=== PATIENT | male | born 1945 | race Caucasian/White ===

== ENCOUNTER → 2016-11-16 | Outpatient (CLI) | payer MEDICARE, OTHER ==
[~2016-11-16] MED LIST: AVAP300T23 PO; AZIT250T3 PO; CALC-190 PO; COMBAER6 INH; COMBIVENT; FEXO180T58 PO; FISH5CAP PO; FLUT1LOT EX; FLUTISP; LEVA1.256 INH; LIPI10TA PO; LYRI75CA PO; MAGN1TAB25 PO; MUCI600T34 PO; PRED5TA PO; PULM0.5S INH; SYMB16INH INH; [UNRECOGNIZED DRUG - CODE]; [UNRECOGNIZED DRUG - OTHER]
[2016-11-16 19:07] LABS: BLOOD UREA NITROGEN 31 MG/DL (7-18); CREATININE FOR GFR 0.96 MG/DL (0.70-1.30); GLOMERULAR FILTRATION RATE > 60.0 (>42)
== END ==
LOC: M WUC 14:07
PROVIDERS: ATTEND Orthopaedic Surgery Orthopaedic Surgery of the Spine
DX: M54.5 Low back pain (principal)

== ENCOUNTER → 2017-06-07 | Outpatient (CLI) | payer MEDICARE, OTHER ==
[~2017-06-07] MED LIST changes: +AZIT-12 PO; -AZIT250T3 PO; -MUCI600T34 PO; +MUCI600T37 PO
--- NOTE | 2017-06-07 12:24 | REP ---
REASON: Pain after trauma. PRIORS: None. Degenerative change is seen throughout the hand. There is no acute fracture. Signed by Giovany Ojeda DO 06/07/2017 12:27 P
--- NOTE | 2017-06-07 12:28 | REP ---
REASON: Pain after trauma. PRIORS: None. FINDINGS: No acute fracture or destructive osseous lesion. Signed by Giovany Ojeda DO 06/07/2017 04:40 P
== END ==
LOC: M WUC 11:42
PROVIDERS: ATTEND Physician Assistant
DX: S60.222A Contusion of left hand, initial encounter (principal); S60.212A Contusion of left wrist, initial encounter; X58.XXXA Exposure to other specified factors, initial encounter; Y92.9 Unspecified place or not applicable

== ENCOUNTER → 2017-09-25 | Outpatient (CLI) | payer MEDICARE, OTHER | LOC: M WUC 10:40 | PROVIDERS: ATTEND Urology | DX: Z85.46 Personal history of malignant neoplasm of prostate (principal) ==

== ENCOUNTER → 2018-06-18 | Outpatient (CLI) | payer MEDICARE, OTHER ==
[2018-06-18 17:19] LABS: BLOOD UREA NITROGEN 25 MG/DL (7-18)
[2018-06-18 17:19] LABS: CREATININE FOR GFR 0.87 MG/DL (0.70-1.30); GLOMERULAR FILTRATION RATE > 60.0 (>42)
== END ==
LOC: M WUC 13:33
DX: M54.5 Low back pain (principal)
CPT/HCPCS: 82565

== ENCOUNTER → 2019-01-27 | Outpatient (CLI) | payer MEDICARE, OTHER ==
[~2019-01-27] MED LIST changes: +LEVA1.2525 INH; -LEVA1.256 INH
--- NOTE | 2019-01-27 11:24 | REP ---
Chest two views HISTORY: Pulmonary disease Comparison: 01/27/2017 The lungs are hyperinflated. An increase in interstitial markings is present in the lungs consistent with chronic interstitial fibrosis The heart is normal in size. The pulmonary vasculature is normal in appearance. The bony structure is intact. The patient is status post right shoulder arthroplasty. IMPRESSION: Chronic interstitial fibrosis. Electronically Signed by Edin Andrade MD 01/27/2019 11:14 A
== END ==
LOC: M WUC 10:45
PROVIDERS: ATTEND Internal Medicine Pulmonary Disease
DX: J44.9 Chronic obstructive pulmonary disease, unspecified (principal); J84.10 Pulmonary fibrosis, unspecified

== ENCOUNTER → 2019-03-05 | Outpatient (REF) | payer MEDICARE, OTHER ==
[~2019-03-05] MED LIST changes: +FLUT50SP12; -FLUTISP; -MAGN1TAB25 PO; +MAGN1TAB26 PO
== END ==
LOC: M LAB REF 11:32
PROVIDERS: ATTEND Internal Medicine Pulmonary Disease
DX: J44.9 Chronic obstructive pulmonary disease, unspecified (principal)

== ENCOUNTER → 2019-03-05 | Outpatient (CLI) | payer MEDICARE, OTHER ==
--- NOTE | 2019-03-05 11:05 | REP ---
Chest x-ray: Two views. History: Shortness of breath. Comparison study: January 27, 2019. Findings: The patient has a right shoulder arthroplasty. The lungs are well inflated and clear. The pleural angles are sharp. Heart size is normal. The aorta slightly tortuous. Emphysematous changes and oligemia are again noted in the upper lobes consistent with COPD. No bony abnormality is seen. Impression: Evidence of COPD as before. No acute cardiopulmonary disease seen. Electronically Signed by Joel Sun MD 03/05/2019 10:56 A
== END ==
LOC: M RAD 10:16
PROVIDERS: ATTEND Internal Medicine Pulmonary Disease
DX: J44.9 Chronic obstructive pulmonary disease, unspecified (principal)

== ENCOUNTER → 2019-07-09 | Outpatient (CLI) | payer MEDICARE, OTHER ==
[2019-07-09 18:10] LABS: APPEARANCE, URINE HAZY (CLEAR); BACTERIA, URINE AUTO 1+ (NEGATIVE); BILIRUBIN, URINE AUTO NEGATIVE (NEGATIVE); BLOOD, URINE BLOOD 1+ (NEGATIVE); COLOR, URINE YELLOW (YELLOW); GLUCOSE, URINE (UA) AUTO NEGATIVE (NEGATIVE); KETONE, URINE AUTO NEGATIVE (NEGATIVE); LEUKOCYTE ESTERASE, URINE AUTO 2+ (NEGATIVE); MUCUS, URINE SMALL (NEGATIVE); NITRITE, URINE AUTO NEGATIVE (NEGATIVE); PROTEIN, URINE AUTO NEGATIVE (NEGATIVE); RBC, URINE AUTO 17 /HPF (0-3); SPECIFIC GRAVITY URINE AUTO 1.018 (1.002-1.035); SQUAMOUS EPITHELIAL CELL UR AU 0 /HPF (0-6); UROBILINOGEN, URINE AUTO 0.2 mg/dL (0.0-2.0); WBC, URINE AUTO 47 /HPF (0-3)
== END ==
LOC: M SMT 13:30
PROVIDERS: ATTEND Surgery
DX: R39.9 Unspecified symptoms and signs involving the genitourinary system (principal)

== ENCOUNTER → 2020-04-12 | Outpatient (REF) | payer MEDICARE, OTHER | LOC: M LAB REF 12:12 | PROVIDERS: ATTEND Internal Medicine | DX: Z01.89 Encounter for other specified special examinations (principal) ==

== ENCOUNTER → 2020-05-26 | Outpatient (CLI) | payer MEDICARE, OTHER ==
--- NOTE | 2020-05-26 16:10 | REP ---
REASON FOR EXAM: History of COPD. COMPARISON: Multiple, the latest 03/05/2019. Cardiomediastinal silhouette and lung morales are unchanged. There is basilar fibrotic change status quo. The heart is not enlarged. There is no change in the osseous structures. IMPRESSION: No evidence of acute cardiopulmonary disease or significant change from the prior exam. Chronic changes as described above. Electronically Signed by Giovany Ojeda DO 05/26/2020 05:03 P
== END ==
LOC: M WUC 13:10
PROVIDERS: ATTEND Internal Medicine Pulmonary Disease
DX: J44.9 Chronic obstructive pulmonary disease, unspecified (principal)

== ENCOUNTER → 2020-06-23 | Outpatient (REF) | payer MEDICARE, OTHER ==
[2020-08-10 21:41] LABS: APPEARANCE, URINE MANUAL HAZY (CLEAR); COLOR, URINE MANUAL YELLOW (YELLOW)
[2020-08-10 21:42] LABS: BILIRUBIN, URINE MANUAL NEGATIVE (NEGATIVE); BLOOD URINE MANUAL NEGATIVE (NEGATIVE); GLUCOSE, URINE (UA) MANUAL NEGATIVE (NEGATIVE); KETONE, URINE MANUAL NEGATIVE (NEGATIVE); LEUKOCYTE ESTERASE, URINE MAN NEGATIVE (NEGATIVE); NITRITE, URINE MANUAL NEGATIVE (NEGATIVE); PROTEIN, URINE MANUAL NEGATIVE (NEGATIVE); SPECIFIC GRAVITY,URINE MANUAL 1.015 (1.002-1.035); UROBILINOGEN, URINE MANUAL NORMAL (NORMAL)
== END ==
LOC: M LAB REF 10:25
PROVIDERS: ATTEND Physician Assistant Medical
DX: R35.0 Frequency of micturition (principal)

== ENCOUNTER → 2020-07-13 | Outpatient (CLI) | payer MEDICARE, OTHER ==
--- NOTE | 2020-08-07 10:49 | REP ---
CHEST X-RAY CLINICAL: COPD and shortness of breath. TECHNIQUE: PA and lateral. COMPARISON: 05/26/2020. FINDINGS: Mediastinum and cardiac silhouette are within normal limits and stable. Lung morales demonstrate chronic COPD/emphysematous disease and interstitial changes. No acute consolidation, effusion, or pneumothorax. Skeletal structures are intact. IMPRESSION: Chronic stable changes. No acute cardiopulmonary process appreciated. MTDD
== END ==
LOC: M WUC 13:05
PROVIDERS: ATTEND Nurse Practitioner Family
DX: J44.9 Chronic obstructive pulmonary disease, unspecified (principal); R06.00 Dyspnea, unspecified

== ENCOUNTER → 2020-09-01 | Outpatient (REF) | payer MEDICARE, OTHER | LOC: M LAB REF 16:28 | PROVIDERS: ATTEND Internal Medicine Pulmonary Disease | DX: J44.9 Chronic obstructive pulmonary disease, unspecified (principal) ==

== ENCOUNTER → 2020-12-25 | Outpatient (REF) | payer MEDICARE, OTHER ==
[2020-12-25 17:43] LABS: PERCENT SATURATION 11.4 % (19.7-50.0)
== END ==
LOC: M LAB REF 16:00
PROVIDERS: ATTEND Internal Medicine
DX: D64.9 Anemia, unspecified (principal)

== ENCOUNTER → 2021-01-12 | Outpatient (REF) | payer MEDICARE, OTHER ==
[2021-01-12 17:38] LABS: PERCENT SATURATION 28.9 % (19.7-50.0)
== END ==
LOC: M LAB REF 16:01
PROVIDERS: ATTEND Internal Medicine
DX: D64.9 Anemia, unspecified (principal)

== ENCOUNTER → 2021-03-09 | Outpatient (CLI) | payer MEDICARE, OTHER ==
--- NOTE | 2021-03-09 12:23 | REP ---
INDICATION: COPD. COMPARISON: Comparison chest x-ray 13 July 2020. TECHNIQUE: Three views... FINDINGS: The lungs are again seen to be hyperinflated but free of infiltrate. Interstitial markings are slightly prominent in the bases unchanged. Pleural angles are sharp. A right shoulder arthroplasty is noted in place. There is soft tissue ossific density beneath the coronoid process on the left shoulder which may reflect loose body. This is unchanged. Heart is not enlarged. Aorta is somewhat tortuous. IMPRESSION: Hyperinflation and bibasilar fibrosis consistent with COPD. No acute disease.. <Electronically signed by Raymond Sun > 03/09/21 [id number]
== END ==
LOC: M WUC 10:56
PROVIDERS: ATTEND Internal Medicine Pulmonary Disease
DX: J44.9 Chronic obstructive pulmonary disease, unspecified (principal)

== ENCOUNTER → 2021-03-13 | Outpatient (CLI) | payer MEDICARE, OTHER ==
[2021-03-13 20:08] LABS: HEMATOCRIT 42.3 % (42.0-52.0); HEMOGLOBIN 12.6 g/dl (13.5-17.5); MEAN CORPUSCULAR HGB CONC 29.8 g/dl (32.0-36.5); MEAN CORPUSCULAR VOLUME 77.3 fl (80.0-96.0); PLATELET COUNT, AUTOMATED 249 10^3/uL (150-450); RED BLOOD COUNT 5.47 10^6/uL (4.30-6.10); WHITE BLOOD COUNT 13.3 10^3/uL (4.0-10.0)
[2021-03-13 20:13] LABS: BLOOD UREA NITROGEN 26 MG/DL (7-18); CALCIUM LEVEL 9.2 MG/DL (8.8-10.2); CARBON DIOXIDE LEVEL 29 MEQ/L (21-32); CHLORIDE LEVEL 108 MEQ/L (98-107); CREATININE FOR GFR 0.62 MG/DL (0.70-1.30); GLOMERULAR FILTRATION RATE > 60.0 (>42); GLUCOSE, FASTING 96 MG/DL (70-100); POTASSIUM SERUM 4.7 MEQ/L (3.5-5.1); SODIUM LEVEL 141 MEQ/L (136-145)
[2021-03-13 20:14] LABS: ALBUMIN 3.5 GM/DL (3.2-5.2); ALT/SGPT 37 U/L (12-78); BILIRUBIN,TOTAL 0.4 MG/DL (0.2-1.0); IRON (FE) 54 UG/DL (65-175); PERCENT SATURATION 18.9 % (19.7-50.0); TOTAL IRON BINDING CAPACITY 285 UG/DL (250-450); TOTAL PROTEIN 6.7 GM/DL (6.4-8.2)
== END ==
LOC: M WUC 15:16
PROVIDERS: ATTEND Physician Assistant Medical
DX: D50.9 Iron deficiency anemia, unspecified (principal)

== ENCOUNTER → 2021-03-28 | Outpatient (CLI) | payer MEDICARE, OTHER ==
[~2021-03-28] MED LIST changes: +GLUCAGON INJ 1MG VIAL As Ordered ONE; +ISOVUE-370 76% 100ML VIAL As Ordered ONE; +VoLumen 0.1% SUSPENSION 450ML BOTTLE As Ordered ONE
--- NOTE | 2021-03-28 16:24 | REP ---
INDICATION: IRON DEFICIENCY, POSITIVE FIT TEST. COMPARISON: None TECHNIQUE: Helical technique after the administration of 100 cc Isovue 370 intravenously and oral bowel preparatory contrast administration FINDINGS: Dense verrucoid opacities are seen in the lung bases in conjunction with saccular bronchiectasis and scattered air bronchograms. There are multiple pulmonary nodules which appear essentially unchanged compared to the CT of the chest of 06/26/2015. There are no pleural or pericardial effusions. There is no evidence of abnormal bowel wall thickening or edema. There is no evidence of mesenteric congestion or fatty infiltration. There is no free fluid or free air. The liver, gallbladder, spleen, pancreas, and adrenal glands are within normal limits. There are bilateral renal cysts. There are no enhancing renal masses. There are small para-aortic lymph nodes without sherron adenopathy. The abdominal aorta is within normal limits for the patient's age. There is rather heavy calcific atheromatous plaque formation. Bone window technique throughout the examination shows the osseous structures to be within normal limits for the patient's age. IMPRESSION: 1. Bronchiectasis with heavy mucoid debris suspected as described above representing a change from the prior CT of 06/26/2015 which is the latest prior for comparison. Pulmonary consultation is recommended 2. Simple bilateral renal cysts. 3. No evidence of a bowel abnormality. 4. Other findings as described above. <Electronically signed by Giovany Ojeda > 03/28/21 [id number]
== END ==
LOC: M RAD 12:34
PROVIDERS: ATTEND Physician Assistant Medical
DX: D50.9 Iron deficiency anemia, unspecified (principal); R19.5 Other fecal abnormalities; Z80.0 Family history of malignant neoplasm of digestive organs; N28.1 Cyst of kidney, acquired; J47.9 Bronchiectasis, uncomplicated
CPT/HCPCS: 74177; J1610; Q9967

== ENCOUNTER → 2021-04-05 | Outpatient (CLI) | payer MEDICARE, OTHER ==
[~2021-04-05] MED LIST changes: +FERR325T81 PO; -GLUCAGON INJ 1MG VIAL As Ordered ONE; +INCR1INH INH; -ISOVUE-370 76% 100ML VIAL As Ordered ONE; +MUCI1TAB16 PO; +NORV5TAB PO; +NYST50SS SS; +OXYC1TAB23 PO; +PRESCAP PO; +VESI10TA2 PO; -VoLumen 0.1% SUSPENSION 450ML BOTTLE As Ordered ONE; +ZINC1TAB2 PO
== END ==
LOC: M LABSMTC 11:08
PROVIDERS: ATTEND Anesthesiology
DX: Z01.818 Encounter for other preprocedural examination (principal); Z20.822 Contact with and (suspected) exposure to COVID-19

== ENCOUNTER 2021-04-28 13:06 | Inpatient (IN) | payer MEDICARE, OTHER ==
[~2021-04-28] VITALS: Ht 182.9 cm; Wt 71.7 kg
[2021-04-28] MEDS ORDERED: dexameTHASONE 20MG/5ML VIAL (J1100 PER 1MG) IV ONE (13:40)
[2021-04-28] MEDS ORDERED: COMBIVENT RESPIMAT 100-20MCG INHALER 4GM INH ONE (13:40)
[2021-04-28 14:02] LABS: VENOUS HCO3 21.7 MEQ/L (23.0-27.0); VENOUS O2 SATURATION 92.9 % (60.0-80.0); VENOUS PARTIAL PRESSURE CO2 33.9 mmHg (38.0-50.0); VENOUS PARTIAL PRESSURE O2 65.4 mmHg (30.0-50.0); VENOUS PH 7.424 UNITS (7.330-7.430); VENOUS STANDARD HCO3 22.7 MEQ/L; VENOUS TOTAL CO2 22.7 MEQ/L (24.0-28.0)
[2021-04-28 14:08] LABS: HEMATOCRIT 35.9 % (42.0-52.0); HEMOGLOBIN 11.6 g/dl (13.5-17.5); MEAN CORPUSCULAR HEMOGLOBIN 23.8 pg (27.0-33.0); MEAN CORPUSCULAR HGB CONC 32.3 g/dl (32.0-36.5); MEAN CORPUSCULAR VOLUME 73.7 fl (80.0-96.0); PLATELET COUNT, AUTOMATED 323 10^3/uL (150-450); RED BLOOD COUNT 4.87 10^6/uL (4.30-6.10); WHITE BLOOD COUNT 21.6 10^3/uL (4.0-10.0)
--- NOTE | 2021-04-28 14:27 | REP ---
INDICATION: DYSPNEA/COUGH. COMPARISON: 03/09/2021 TECHNIQUE: Portable FINDINGS: The technique utilized in obtaining the radiograph has magnified the cardiac silhouette and accentuated the interstitial markings. There is cardiomegaly accentuated by technique. There is new left CP angle blunting. The interstitial markings are diffusely increased. There are bibasilar opacities representing a change from the prior exam. There is a rounded opacity in the right lower lung field which measures 3 cm. There is no change in the osseous structures. IMPRESSION: There is evidence of interstitial edema with basilar predominance superimposed upon chronic fibrotic changes. Certainly, basilar pneumonia cannot be excluded. There is a left pleural effusion. The density seen on the right possibly represents intra fissural fluid. <Electronically signed by Giovany Ojeda > 04/28/21 [id number]
[2021-04-28 14:28] LABS: ANISOCYTOSIS 1+; EOSINOPHILS 2 % (0-3); LYMPHOCYTES 1 % (16-44); MONOCYTES 5 % (0-5); NEUTROPHILS 62 % (28-66); PLATELET ESTIMATE NORMAL (NORMAL)
[2021-04-28 14:29] LABS: MICROCYTOSIS 2+
[2021-04-28 14:40] LABS: ALBUMIN 2.2 GM/DL (3.2-5.2); ALT/SGPT 56 U/L (12-78); BILIRUBIN,DIRECT 0.2 MG/DL (0.0-0.2); BILIRUBIN,TOTAL 0.5 MG/DL (0.2-1.0); BLOOD UREA NITROGEN 28 MG/DL (7-18); CALCIUM LEVEL 8.3 MG/DL (8.8-10.2); CARBON DIOXIDE LEVEL 22 MEQ/L (21-32); CHLORIDE LEVEL 99 MEQ/L (98-107); CK-MB VALUE MASS 3.2 NG/ML (<3.6); CPK CREATINE PHOSPHOKINASE 143 U/L (39-308); CREATININE FOR GFR 1.13 MG/DL (0.70-1.30); GLOMERULAR FILTRATION RATE > 60.0 (>42); GLUCOSE, FASTING 125 MG/DL (70-100); MB/CK RELATIVE INDEX 2.24 (< OR =4); NT-PRO BNP 2940 PG/ML (<450); POTASSIUM SERUM 4.9 MEQ/L (3.5-5.1); SODIUM LEVEL 130 MEQ/L (136-145); THYROXINE (T4) 6.4 UG/DL (4.5-12.0); TOTAL PROTEIN 6.2 GM/DL (6.4-8.2); TROPONIN I 0.07 NG/ML (< 0.10)
[2021-04-28] MEDS ORDERED: cefTRIAXone SOD 2 GM in D5W MINI-BAG PLUS 50 ML IV ONE (16:00)
[2021-04-28] MEDS ORDERED: areds (16:02)
[2021-04-28] MEDS ORDERED: IPRATROPIUM 0.5MG/ALBUTEROL 2.5MG INH SOL UD 3ML (DUONEB) INH PRN (16:45)
[2021-04-28] MEDS ORDERED: MOM 30ML SUSPENSION UDC PO PRN (16:45)
[2021-04-28] MEDS ORDERED: MAALOX 30 ML SUSP *UDC PO PRN (16:45)
--- NOTE | 2021-04-28 16:48 | REP ---
INDICATION: possible pneumonia/ chf COMPARISON: 05/27/2015 the latest prior also without contrast TECHNIQUE: Standard helical technique without intravenous contrast administration FINDINGS: There is no significant change in the appearance of the mediastinum or pulmonary bishnu. There is no evidence of a mass or adenopathy. Borderline subcarinal lymph nodes, however, are present. There is a small left pleural effusion and a small amount of fluid seen in the right major fissure. There is an oval-shaped masslike density in the superior segment of the right lower lobe abutting the major fissure. There is a similar finding in the left lower lobe, however, that is contiguous with a loculated effusion. There is a left upper posterior and posterolateral loculated effusion. There is a slight pericardial effusion. This has all developed since the last exam. The imaged upper abdomen is unchanged. There is no significant change in the appearance of the imaged osseous structures. Evaluation of the lung morales shows a new area of consolidation/mass in the apicoposterior segment of the left upper lobe. There is a wedge-shaped opacity in the right middle lobe. There is a rhomboid shaped opacity in the apicoposterior segment of the left upper lobe which is causing bronchial occlusion. Advanced chronic lung changes are seen throughout the lung morales with evidence of bronchiectasis and bronchial are opacification in the lower lobe bilaterally. IMPRESSION: 1. Loculated left pleural effusion as described above. 2. Masslike areas of consolidation seen in the left upper and middle lobes. Postobstructive pneumonia with or without malignancy cannot be ruled out. 3. There are chronic lung field changes with bronchiectasis, bronchial are opacification likely mucoid debris, and fibrotic changes as described above. Certainly, lymphangitic neoplasm cannot be ruled out. 4. Other findings as described above. <Electronically signed by Giovany Ojeda > 04/28/21 [id number]
--- NOTE | 2021-04-28 17:11 | HPEPDOC ---
[facility] Medical History & Physical Date of Admission Apr 28, 2021 Date of Service: Apr 28, 2021 History and Physical CHIEF COMPLAINT: Shortness of breath HISTORY OF PRESENT ILLNESS: 75-year-old male history of advanced COPD presents to the emergency department by EMS with his because of a one-week history of shortness of breath worse than baseline at home. Patient notes they've been noticing increased sputum production green in color over the past 1 week which coincided with when he started having shortness of breath. He denies fevers or chills. Denies requiring any increased oxygen requirement above his 2 L baseline. He just feels more tired and weak than usual. Exertion worsens his shortness of breath. He hasn't needed to sleep on more pillows at night. He denies increased swelling in his legs he denies a history of cardiac disease denies having congestive heart failure. In the emergency department chest x-ray suggestive of possible pneumonia he was given 1 dose of ceftriaxone. Blood cultures were ordered. Pro-calcitonin is pending. He was given 1 dose of Decadron and nebulizer treatment. CT chest was ordered. PAST MEDICAL/SURGICAL HISTORY: COPD dependent on 2 L of oxygen at home follows with [employer] Dr. Thacker Hypertension currently not on antihypertensive medications Hyperlipidemia Obstructive sleep apnea on CPAP at home Right shoulder replacement Prostate cancer status post radiation Back surgery SOCIAL HISTORY: Denies alcohol use Denies tobacco use currently quit 25 years ago prior to that smoked for 50 years Denies illicit drug use FAMILY HISTORY: Father had a history of lung disease ALLERGIES: Please see below. REVIEW OF SYSTEMS: 10 point review of systems complete all negative otherwise stated in HPI HOME MEDICATIONS: Please see below. PHYSICAL EXAMINATION: Constitutional: Awake and alert, in no apparent distress ENT: Sclera are clear. Mucosa is moist. Respiratory: Lungs diminished bilaterally, no crackles, no wheezing appreciated. No respiratory distress. No use of accessory muscles. Saturating at 96% on 1.5 L of oxygen which is below his home oxygen requirement Cardiovascular: RRR S1 and S2 are normal, no murmur Gastrointestinal: Abdomen is soft, non distended, non tender, BS present. Musculoskeletal: No lower extremity edema. Neurologic: No focal neurological deficit. Mental Status: A&O x3, normal affect Skin: Some skin irritation at intergluteal cleft erythema LABORATORY DATA: See below. IMAGING: See chart Chest CT pending MICROBIOLOGY: Please see below. ASSESSMENT/PLAN 75-year-old male history of advanced COPD presents with shortness of breath and sputum production for one week suspected to have community-acquired pneumonia admitted for observation. # Suspected community-acquired pneumonia: Given 1 dose of ceftriaxone in the ED. Started on levofloxacin IV which can be transitioned to by mouth at time of discharge. QTC 430. Blood cultures and sputum cultures ordered. 2 nebs as needed. Incentive spirometry. Respiratory Negative. He is afebrile but does have some leukocytosis which could be a combination of chronic steroids as well as the pneumonia. # COPD dependent on oxygen at home: Not in exacerbation good air movement and no wheezing on exam. Requiring near baseline home oxygen requirement. Chronically on azithromycin for anti-inflammatory properties this can be continued. Chronically on steroids which can also be continued. Duonebs as needed. Continue home medications and inhalers. # Increased BNP: Possibly from pulmonary hypertension due to advanced COPD. He is clinically euvolemic. He can obtain an echo with his PCP if one has not been done recently. His chest x-ray does demonstrate some interstitial edema with a left pleural effusion will leave one-time dose of IV Lasix # Hypertension: Normotensive. Monitor and titrate # Hyperlipidemia: Continue home medication # DVT prophylaxis: Lovenox A [facility] Hospitalist Vital Signs Vital Signs Date Time Temp Pulse Resp B/P (MAP) Pulse Ox O2 Delivery O2 Flow Rate FiO2 04/28/21 15:30 84 98/66 (77) 96 Nasal Cannula 2.0 04/28/21 15:20 97.6 04/28/21 14:36 17 Laboratory Data Labs 24H Laboratory Tests 2 04/28/21 13:24: Blood Gas Bicarbonate Standard 22.7, Venous Blood pH 7.424, Venous Blood Partial Pressure CO2 33.9L, Venous Blood Partial Pressure O2 65.4H, Venous Blood Total Carbon Dioxide 22.7L, Venous Blood HCO3 21.7L, Venous Blood Oxygen Saturation 92.9H, Venous Blood Base Excess -2.0, Anion Gap 9, Glomerular Filtration Rate > 60.0, Lactic Acid Level 1.6, Calcium Level 8.3L, Total Bilirubin 0.5, Direct Bilirubin 0.2, Aspartate Amino Transf (AST/SGOT) 33, Alanine Aminotransferase (ALT/SGPT) 56, Alkaline Phosphatase 78, Total Creatine Kinase 143, Creatine Kinase MB 3.2, Creatine Kinase MB Relative Index 2.24, Troponin I 0.07, QI-Cry-Y-Type Natriuretic Peptide 2940H, Total Protein 6.2L, Albumin 2.2L, Albumin/Globulin Ratio 0.6, Thyroid Stimulating Hormone (TSH) 1.020, Thyroxine (T4) 6.4 04/28/21 13:40: Neutrophils (%) (Auto) , Nucleated Red Blood Cells % (auto) 0.0, Neutrophils 62, Band Neutrophils 30H, Lymphocytes (Manual) 1L, Monocytes (Manual) 5, Eosinophils (Manual) 2, Anisocytosis 1+, Microcytosis 2+, Platelet Estimate NORMAL 04/28/21 15:33: CBC/BMP Laboratory Tests 04/28/21 13:24 04/28/21 13:40 Microbiology Microbiology 04/28/21 Blood Culture, Received Pending 04/28/21 Respiratory Virus Panel (PCR) (CORTES) - Final, Complete 04/28/21 Blood Culture, Received Pending Home Medications Scheduled Amlodipine Besylate (Norvasc) 5 Mg Tablet, 5 MG PO DAILY Atorvastatin Calcium (Lipitor) 10 Mg Tab, 10 MG PO QHS Azithromycin (Azithromycin) 250 Mg Tab, 250 MG PO DAILY Budesonide (Pulmicort) 0.5 Mg/2 Ml [place], 0.5 MG INH BID Budesonide/Formoterol (Symbicort 160-4.5 Mcg Inhaler) 60 Puff/Inhaler Aers, 2 PUFF INH BID Ferrous Sulfate (Iron) 325 Mg Tablet, 325 MG PO DAILY Guaifenesin (Mucinex) 1,200 Mg Tab.er.12h, 1,200 MG PO BID Irbesartan (Irbesartan) 150 Mg Tablet, 150 MG PO DAILY Levalbuterol HCl (Levalbuterol HCl) 1.25 Mg/3 Ml Neb, 1.25 MG INH QID Nystatin (Nystatin Oral Susp) 100,000 Unit/1 Ml Oral.susp, 5 ML SS BID Prednisone (Prednisone) 20 Mg Tablet, 20 MG PO Q2D ALTERNATE WITH 10MG TAB Prednisone (Prednisone) 20 Mg Tablet, 10 MG PO Q2D ALTERNATE WITH 20MG TAB Solifenacin Succinate (Vesicare) 10 Mg Tablet, 10 MG PO DAILY Umeclidinium [place] (Incruse Ellipta) 62.5 Mcg Blst.w.dev, 1 PUFF INH DAILY Vit A/Vit C/Vit E/Zinc/Copper (Preservision Areds Softgel) 1 Each Capsule, 2 CAP PO DAILY Zinc (Zinc) 50 Mg Tablet, 50 MG PO DAILY Scheduled PRN Fluticasone Propionate (Fluticasone Propionate) 16 Gm [place].susp, 1 SPRAY NARES BID PRN for NASAL CONGESTION Ipratropium/Albuterol Sulfate (Combivent Respimat 20-100 Mcg) 1 Aer Aer, 1 PUFF INH QIDP PRN for WHEEZING Oxycodone HCl/Acetaminophen (Oxycodone-Acetaminophen 5-325) 1 Each Tablet, 1 TAB PO Q8HP PRN for PAIN Allergies Coded Allergies: No Known Allergies (Unverified , 04/03/21) A-FIB/CHADSVASC A-FIB History Current/History of A-Fib/PAF?: No HARDY MAJOR MD Apr 28, 2021 17:11
[2021-04-28] MEDS ORDERED: PRED20TA PO (17:26)
[2021-04-28] MEDS ORDERED: FLUTISP NARES (17:26)
[2021-04-28] MEDS ORDERED: IRBE150T7 PO (17:26)
[2021-04-28] MEDS ORDERED: LevoFLOXacin IV 750 MG in IV 1 EA IV SCH (18:00)
[2021-04-28] MEDS ORDERED: FUROSEMIDE 100MG/10ML VIAL (J1940) IV ONE (18:00)
[2021-04-28] MEDS: NYSTATIN 100,000 UNITS/GM TOPICAL PWD 15 GM TOP SCH (20:42)
[2021-04-28] MEDS: DOCUSATE SODIUM 100MG CAPSULE PO SCH (20:42)
[2021-04-28] MEDS: ACETAMINOPHEN TAB 650MG DOSE (2X325MG) PO PRN (20:42)
[2021-04-28 22:00] VITALS: BP 106/60
[2021-04-29 06:00] VITALS: BP 133/76
[2021-04-29 06:18] LABS: HEMATOCRIT 34.7 % (42.0-52.0); HEMOGLOBIN 11.2 g/dl (13.5-17.5); MEAN CORPUSCULAR HEMOGLOBIN 23.4 pg (27.0-33.0); MEAN CORPUSCULAR HGB CONC 32.3 g/dl (32.0-36.5); MEAN CORPUSCULAR VOLUME 72.6 fl (80.0-96.0); PLATELET COUNT, AUTOMATED 268 10^3/uL (150-450); RED BLOOD COUNT 4.78 10^6/uL (4.30-6.10); WHITE BLOOD COUNT 19.9 10^3/uL (4.0-10.0)
[2021-04-29 06:46] LABS: BLOOD UREA NITROGEN 28 MG/DL (7-18); CALCIUM LEVEL 9.2 MG/DL (8.8-10.2); CARBON DIOXIDE LEVEL 26 MEQ/L (21-32); CHLORIDE LEVEL 99 MEQ/L (98-107); CREATININE FOR GFR 0.71 MG/DL (0.70-1.30); GLOMERULAR FILTRATION RATE > 60.0 (>42); GLUCOSE, FASTING 111 MG/DL (70-100); SODIUM LEVEL 133 MEQ/L (136-145)
[2021-04-29] MEDS: ENOXAPARIN 40MG/0.4ML SYRINGE (J1650 PER 10MG) SC SCH (08:30)
[2021-04-29] MEDS: DOCUSATE SODIUM 100MG CAPSULE PO SCH ×2 (08:30→21:00)
[2021-04-29] MEDS: NYSTATIN 100,000 UNITS/GM TOPICAL PWD 15 GM TOP SCH ×2 (08:30→21:33)
[2021-04-29] MEDS: guaiFENesin ER 600 MG TAB PO SCH ×2 (10:32→21:33)
[2021-04-29] MEDS: PIPERACILLIN/TAZOBACTAM SOD 4.5 GM in D5W MINI-BAG PLUS 100 ML IV SCH ×3 (10:32→21:33)
[2021-04-29] MEDS: predniSONE 20 MG TAB PO SCH (10:32)
[2021-04-29] MEDS: SODIUM CHLORIDE HYPERTONIC 3% 15ML NEB SOL INH SCH ×3 (11:09→20:27)
[2021-04-29] MEDS: SYMBICORT 160/4.5MCG INHALER 6GM INH SCH ×2 (11:09→20:27)
[2021-04-29] MEDS: LEVALBUTEROL 1.25 MG/0.5 ML CONCENTRATE NEB INH SCH ×3 (11:10→20:27)
[2021-04-29] MEDS: VANCOMYCIN HCL 1,000 MG, VIAL MATE ADAPTER 1 EACH in NS 250 ML IV SCH ×2 (11:58→23:46)
[2021-04-29] MEDS: FERROUS SULFATE 325MG TAB PO SCH (11:59)
[2021-04-29] MEDS ORDERED: VANCOMYCIN HCL 500 MG in D5W MINI-BAG PLUS 100 ML IV ONE (13:00)
[2021-04-29] MEDS: SOLIFENACIN 5 MG TAB PO SCH (13:48)
--- NOTE | 2021-04-29 13:55 | IPNPDOC ---
Text Note Date of Service The patient was seen on 04/29/21. NOTE Subjective: Patient seen and examined this morning at bedside. CT results show more extensive involvement suggesting possibly postobstructive pneumonia which I discussed with the patient. I also discussed with him the nodules/masses which will need further workup. He is aware of a history of lung nodules on CT which he follows up with Dr. Thacker his investigator operator. Patient tells me that he feels about the same as yesterday he still has a productive green sputum still denies any fevers or chills. Shortness of breath feels unchanged from yesterday. No acute overnight events reported to me. Denies any chest pain. Objective: Constitutional: Awake and alert, in no apparent distress ENT: Sclera are clear. Mucosa is moist. Respiratory: Lungs diminished bilaterall. No respiratory distress. No use of accessory muscles. Saturating at 96% on 2L of oxygen which is his home oxygen requirement. Cardiovascular: RRR S1 and S2 are normal, no murmur Gastrointestinal: Abdomen is soft, non distended, non tender, BS present. Musculoskeletal: No lower extremity edema. Neurologic: No focal neurological deficit. Mental Status: A&O x3, normal affect Skin: Some skin irritation at intergluteal cleft erythema, skin color changes and fragility from senior living steroid use Imaging CT chest: IMPRESSION: 1. Loculated left pleural effusion as described above. 2. Masslike areas of consolidation seen in the left upper and middle lobes. Postobstructive pneumonia with or without malignancy cannot be ruled out. 3. There are chronic lung field changes with bronchiectasis, bronchial are opacification likely mucoid debris, and fibrotic changes as described above. Certainly, lymphangitic neoplasm cannot be ruled out Assessment/plan: 75-year-old male history of advanced COPD presents with shortness of breath and sputum production for one week suspected to have community-acquired pneumonia admitted for observation. # Pneumonia, possibly post obstructive: Given 1 dose of ceftriaxone in the ED. Started on levofloxacin IV initially which was escalated to adding vancomycin and Zosyn 04/29. QTC 430. Blood cultures and sputum cultures including fungal ordered. Duonebs as needed. Incentive spirometry. Acapella. Respiratory panel Negative. Afebrile with leukocytosis 21.6->19.9. # multiple chest nodules/masses: CT suggestive of possibility of malignancy as well as lymphangitic neoplasm. I discussed and reviewed the case and CT imaging with investigator operator Dr Napier door person today who kindly agreed to see the patient in consultation. I appreciate her recommendations. Will ask IR for CT guided percutaneous drainage to attempt to biopsy/aspirate the mass/fluid on the left side for pathology/fluid analysis. # COPD dependent on oxygen at home: Not in exacerbation good air movement and no wheezing on exam. Requiring near baseline home oxygen requirement. Chronically on azithromycin for anti-inflammatory properties. Chronically on steroids which can be continued. Duonebs as needed. Continue home medications and inhalers. # Increased BNP: Possibly from pulmonary hypertension due to advanced COPD. He is clinically euvolemic. Ordered echo. His chest x-ray does demonstrate some interstitial edema with a left pleural effusion s/p one-time dose of IV Lasix # Hypertension: Normotensive. Monitor and titrate # Hyperlipidemia: Continue home medication # DVT prophylaxis: Lovenox A [facility] Hospitalist VS,[place], I+O VS, [place], I+O Laboratory Tests 04/28/21 13:24 04/28/21 13:40 04/29/21 06:10 Vital Signs Date Time Temp Pulse Resp B/P (MAP) Pulse Ox O2 Delivery O2 Flow Rate FiO2 04/29/21 06:00 97.7 95 20 133/76 (95) 90 Nasal Cannula 2.0 I&O- Last 24 Hours up to 6 AM 04/29/21 06:00 Intake Total 620 ml Output Total 585 ml Balance 35 ml HARDY MAJOR MD Apr 29, 2021 11:39
[2021-04-29 14:00] VITALS: BP 124/96
--- NOTE | 2021-04-29 14:18 | CR ---
PULMONARY CONSULTATION DATE: 04/29/2021 CHIEF COMPLAINT: Shortness of breath. HISTORY OF PRESENT ILLNESS: Mr. Cheek is a 75-year-old male with a history of advanced chronic obstructive pulmonary disease (COPD) on chronic steroids and azithromycin with chronic hypoxemic respiratory failure, hypertension, hyperlipidemia, obstructive sleep apnea (MARGARETTE) on continuous positive airway pressure (CPAP), who presented initially with complaints of worsening shortness of breath and dyspnea on exertion. Patient had noted symptoms for about a week prior to presentation with increasing fatigue and dyspnea. He has a history of chronic mucus production and cough at baseline and was unclear if he had noted significant increase in mucus production, but did have change in the mucus color. 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 He had not noticed any fever or chills. He did have some increased chest tightness and today he does notice with deep inspiration that he is having some pleuritic discomfort in his chest anteriorly bilaterally. He denied noticing any worsening wheezing. He had not noticed any increasing lower extremity edema or orthopnea. He is on azithromycin 250 mg five days a week chronically, which he has been on for quite some time. He is also on prednisone, alternating doses of 20 mg and 10 mg, as well for quite some time. 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 His previous sputum cultures had grown pseudomonas in the past. Patient was initially started on ceftriaxone in the emergency department (ED) and was also given one dose of Decadron. He was admitted for pneumonia and was continued on antibiotics with Levaquin and with nebulizers as needed. Patient has also received one dose of Lasix, given an elevated BNP on admission. This morning, patient states that his shortness of breath is relatively unchanged. He does continue to have cough, which can occasionally be difficult in expectorating mucus. He denies any fevers or chills currently. No nausea or vomiting. PAST MEDICAL AND SURGICAL HISTORY: 1. Chronic obstructive pulmonary disease (COPD) with chronic hypoxemic respiratory failure on 2 liters nasal cannula oxygen and on chronic steroids. 2. Hypertension. 3. Hyperlipidemia. 4. Obstructive sleep apnea (MARGARETTE) on continuous positive airway pressure (CPAP). 5. Right shoulder replacement. 6. Prostate cancer status post radiation approximately 15 years ago. 7. Back surgery. FAMILY HISTORY: Father: History of lung disease. SOCIAL HISTORY: Patient is a former smoker, had been smoking for 50 years and quit 25 years ago. No alcohol use or illicit drug use. HOME MEDICATIONS: - amlodipine - atorvastatin - azithromycin 250 mg daily, Friday through Friday - budesonide, nebulized - Symbicort - Incruse - guaifenesin twice a day - irbesartan - Nystatin - prednisone 20 mg alternating with 10 mg - VESIcare - zinc - oxycodone/acetaminophen as needed - levalbuterol, nebulized, as needed ALLERGIES: No known drug allergies. PHYSICAL EXAMINATION: VITAL SIGNS: Temperature 97.7, pulse 95, respirations 20, blood pressure 132/76, oxygen saturation 90-96% on 2 liters nasal cannula. INTAKE AND OUTPUT: Intake 420 mL, output documented 110 mL. GENERAL: Patient is an elderly male, is sitting in the bed, appears awake, alert and oriented times three. He is able to speak in complete sentences and is not using any significant accessory muscles for respiration, although he does appear tachypneic with no exertion. HEENT: Normocephalic, atraumatic. Pupils are reactive to light bilaterally. Neck is supple. Trachea is midline. No palpable cervical adenopathy. HEART: Regular rate and rhythm. Normal S1, S2. A few premature ventricular contractions (PVCs). Possible faint systolic murmur, although somewhat distant heart sounds noted. PULMONARY: Diminished breath sounds bilaterally with no significant wheezing or crackles noted. There are occasional rhonchi, which improve with cough. ABDOMEN: Soft, nontender, nondistended. No palpable masses. EXTREMITIES: There is no significant lower extremity edema bilaterally. Patient does have areas of ecchymosis and bruising in his extremities, mostly in his arms. LABORATORY DATA: WBC 19.9, hemoglobin 11.2, platelets 268. Chemistry: Sodium 133, potassium 5.0, chloride 99, bicarbonate 26, BUN 28, creatinine 0.71, glucose 117, lactic acid 1.6, magnesium 2.0, calcium 9.2. BNP 2940. Troponin initially was 0.07. Procalcitonin today was 33.58, repeat was 22.67. Venous blood gas (VBG) on admission was pH 7.424, pCO2 33.9, pO2 65.4. IMAGING DATA: CT chest showed advanced emphysematous changes noted again, as well as bronchiectasis. On the right lung, there is an area of wedge-shaped atelectasis in the right middle lobe and a very trace amount of fluid seen in the right major fissure, as well as an ovoid opacity abutting the major fissure. Questionable fluid loculation. There is also a pleural based nodule on the right upper lobe, which appeared to have been seen previously. There are other scattered nodular opacities noted and mucus impaction in the right lower lobe with areas of some tree and bud with nodular thickening of the interlobular septa. On the left lung, there is an area of loculated left pleural effusion which is noted somewhat apically and extending down into the fissure on the left with a rounded oval opacity in the left lower lobe contiguous with the loculated effusion. There is also an area of consolidation and opacity in the left upper lobe apical posterior segment and in the left lower lobe there are additional areas of nodular opacity and some compressive atelectasis/consolidation with areas of increased nodular interstitium. There are borderline mediastinal lymph nodes. ASSESSMENT AND PLAN: Mr. Cheek is a 75-year-old male with a past medical history of advanced chronic obstructive pulmonary disease (COPD) with chronic hypoxemic respiratory failure on 2 liters nasal cannula oxygen supplementation and chronic steroids who presented with complaints of increasing shortness of breath and change in his mucus. Patient was found on imaging to have new opacities as well as significant leukocytosis. He was afebrile, but there was concern for pneumonia and he was initially admitted for community-acquired pneumonia and treated with Levaquin. The patient did have very significantly elevated procalcitonin and his CT of the chest showed significant abnormalities. He was, therefore, given Zosyn in addition to his Levaquin earlier today. Pulmonary was consulted to comment on his significant abnormal findings on CT. 1. Pneumonia with a prior history of pseudomonas in a patient with chronic lung disease and on chronic steroids and chronic azithromycin. a. Patient's CT was reviewed and there are various areas of consolidation and atelectasis, as well as some other areas of more nodular opacities, particularly in the right lower lobe and left lower lobe, some of which may be due to bronchial mucus impaction. However, with the nodule thickening of the interstitium, there is the possibility as well of a potentially malignant process with lymphangitic spread. He does have a previous history of lung nodules in the past, which had been followed up, although has not had any repeat imaging for several years. Patient does have two areas which are almost mask-like in the right lower lobe and left lower lobe, although the area appears to be abutting the fissure and there is some fluid tracking to the fissure on the right and in the left, that ovoid mass-like area does appear contiguous with a loculated effusion, and so suspect that these are not masses, but actually loculated fluid. He does have more significant loculated pleural effusion on the left side and, with his leukocytosis and his significantly elevated procalcitonin and suspected pneumonia, there is concern that the loculated effusion represents a complicated peripneumonic effusion or even, perhaps, empyema. b. As patient does have a history of pseudomonas, would continue with double pseudomonal coverage with Zosyn and Levaquin. Would also and vancomycin for methicillin-resistant Staphylococcus aureus (MRSA) coverage pending results of his sputum culture and MRSA screen. c. We did discuss the results of his imaging with the patient and discussed that while most likely, these findings on imaging are related to infectious etiology, there is a potential for other etiology such as malignancy, so he would need close imaging followup for resolution. Given the concern for empyema, he would need a diagnostic drainage with a pigtail catheter placement and potentially, thrombolytics, given the loculated nature of the effusion on imaging. Patient will be ordered for interventional radiology (IR) guided pigtail catheter placement for his left-sided loculated pleural effusion. d. We will follow up the results of his urine, Legionella, mycoplasma and Streptococcus pneumoniae. Given his chronic steroid use, there is also a possibility of a fungal organism and more atypical organisms causing infectious process. Will also check a [id number] and will check a sputum culture for fungal organisms and for acid-fast bacilli (AFB). e. Patient does have evidence of likely mucoid impaction and does have bronchiectasis on imaging. Will start him on levalbuterol four times a day with hypertonic saline nebulized four times a day and Acapella device for mucus clearance. Will also restart his home Mucinex to help with mucus clearance. f. Patient is on Symbicort and Incruse chronically. Will restart his Symbicort and replace the Incruse with Spiriva Handihaler while inpatient. g. Patient is on chronic prednisone as well, 10 mg alternating with 20 mg. Would restart his home chronic prednisone dose. He does not have significant wheezing at this time, but if he does have worsening dyspnea or wheezing, would increase him to higher doses of steroids. h. Will follow up with the results of his pleural fluid cultures once he does have the pigtail placed tomorrow by interventional radiology (IR). Deep venous thrombosis (DVT) prophylaxis. Lovenox. CODE STATUS: FULL CODE. MTDD
--- NOTE | 2021-04-29 14:22 | ECGEPIP ---
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
[2021-04-29] MEDS: TIOTROPIUM INHALER/CAPSULE (SPIRIVA) INH SCH (15:10)
[2021-04-29 17:10] LABS: APPEARANCE, URINE HAZY (CLEAR); BACTERIA, URINE AUTO NEGATIVE (NEGATIVE); BILIRUBIN, URINE AUTO NEGATIVE (NEGATIVE); BLOOD, URINE BLOOD NEGATIVE (NEGATIVE); COLOR, URINE YELLOW (YELLOW); GLUCOSE, URINE (UA) AUTO NEGATIVE (NEGATIVE); KETONE, URINE AUTO NEGATIVE (NEGATIVE); LEUKOCYTE ESTERASE, URINE AUTO NEGATIVE (NEGATIVE); MUCUS, URINE SMALL (NEGATIVE); NITRITE, URINE AUTO NEGATIVE (NEGATIVE); PROTEIN, URINE AUTO NEGATIVE (NEGATIVE); RBC, URINE AUTO 2 /HPF (0-3); SPECIFIC GRAVITY URINE AUTO 1.015 (1.002-1.035); SQUAMOUS EPITHELIAL CELL UR AU 2 /HPF (0-6); UROBILINOGEN, URINE AUTO 0.2 mg/dL (0.0-2.0); WBC, URINE AUTO 0 /HPF (0-3)
[2021-04-29] MEDS ORDERED: LevoFLOXacin IV 750 MG in IV 1 EA IV SCH (18:00)
[2021-04-29] MEDS: ATORVASTATIN 10 MG TAB PO SCH (21:33)
[2021-04-29] MEDS: ACETAMINOPHEN TAB 650MG DOSE (2X325MG) PO PRN (21:33)
[2021-04-29 22:00] VITALS: BP 131/70
[2021-04-29 23:30] VITALS: BP 92/52
--- NOTE | 2021-04-30 00:09 | IPNPDOC ---
Date Seen The patient was seen on 04/29/21. Progress Note SUBJECTIVE: Called to bedside by RN with patient exhibiting change in level of consciousness. Decreased blood pressure and now with acute confusion. OBJECTIVE PHYSICAL EXAMINATION: Patient is seen lying in bed with eyes closed. Upon entry to the room. He responds quickly to voice but is oriented to person only. 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 HEENT is unremarkable except for a mild chronic left facial droop. Tongue is midline. Speech is clear and easily understood. Lungs diminished but clear to auscultation. Heart regular rate and rhythm without murmur. Abdomen is soft, nontender to palpation with bowel sounds positive. Patient is moving all extremities and strength is equal bilaterally. Skin with no obvious rash or le zac. ASSESSMENT AND PLAN: 1. Altered mental status with new onset confusion. Will check ABGs. Encourage patient to use CPAP. Further plan will be based on results of ABGs. 2. Hypotension. Patient is currently receiving antibiotics with 250 mLs fluid. Will recheck blood pressure after antibiotics infused. We'll continue with IV fluid bolus if needed. 3. Pneumonia with prior history of Pseudomonas and probable loculated effusions. Patient for diagnostic drainage and placement of pigtail catheter tomorrow in interventional radiology. Continue patient on Zosyn and Levaquin as well as vancomycin. Continue nebulizers with Xopenex. Encourage good pulmonary toilet with Acapella. Continue Symbicort and Spiriva as well as prednisone. 4. Obstructive sleep apnea with CPAP. Patient is not tolerating CPAP this evening. ABGs pending. Will encourage CPAP use. May need to give mild antianxiety medication, but will wait for results of ABG. 5. Multiple chest nodules and masses. Patient will require ongoing monitoring and further workup, possibly as outpatient. 6. Chronic obstructive pulmonary disease. Plan as outlined above. 7. Acute on chronic respiratory failure secondary to pneumonia. Plan as outlined in #1. 8. Increased BNP secondary to pulmonary hypertension with advanced COPD. Echocardiogram pending. 9. Hypertension with current hypotension. IV fluids as noted above. We'll continue to monitor closely. IV fluid bolus as needed. 10. Hyperlipidemia. Continue statin. 11. DVT prophylaxis. Lovenox. VS, I&O, 24H, Fishbone Vital Signs/I&O Vital Signs Date Time Temp Pulse Resp B/P (MAP) Pulse Ox O2 Delivery O2 Flow Rate FiO2 04/29/21 22:00 98.0 102 22 131/70 (90) 88 Nasal Cannula 2.0 I&O- Last 24 Hours up to 6 AM 04/29/21 06:00 Intake Total 620 ml Output Total 585 ml Balance 35 ml Laboratory Data 24H LABS Laboratory Tests 2 04/29/21 06:10: Nucleated Red Blood Cells % (auto) 0.0, Anion Gap 8, Glomerular Filtration Rate > 60.0, Calcium Level 9.2, Magnesium Level 2.0, Procalcitonin 22.67 04/29/21 10:14: 04/29/21 10:31: Methicillin-Resist S.aureus DNA PCR NOT DETECTED 04/29/21 16:55: Urine Color YELLOW, Urine Appearance HAZY, Urine pH 5.0, Urine Specific [place] 1.015, Urine Protein NEGATIVE, Urine Glucose (Auto)(UA) NEGATIVE, Urine Ketones (Auto) NEGATIVE, Urine Blood NEGATIVE, Urine Nitrite NEGATIVE, Urine Bilirubin NEGATIVE, Urine Urobilinogen 0.2, Urine Leukocyte Esterase (Auto) NEGATIVE, Urine WBC (Auto) 0, Urine RBC (Auto) 2, Urine Hyaline Casts (Auto) 0, Urine Bacteria (Auto) NEGATIVE, Urine Squamous Epithelial Cells 2, Urine Mucus (Auto) SMALL, Urine Sperm (Auto) CBC/BMP Laboratory Tests 04/29/21 06:10 Microbiology Microbiology 04/29/21 Acid Fast Stain, Received Pending 04/29/21 Mycobacterial Culture, Received Pending 04/29/21 Yeast/Fungus Identification, Received Pending 04/28/21 Blood Culture - Preliminary, Resulted No growth after 24 hours . All specim... 04/28/21 Respiratory Virus Panel (PCR) ([facility]) - Final, Complete 04/28/21 Blood Culture - Preliminary, Resulted No growth after 24 hours . All specim... SHAKIRA ESTRELLA Apr 30, 2021 00:09
[2021-04-30 00:20] LABS: ABG BASE EXCESS 0.5 (-2.0-2.0); ABG HCO3 22.6 MEQ/L (22.0-26.0); ABG O2 SATURATION 95.2 % (95.0-99.0); ABG PARTIAL PRESSURE CO2 28.6 mmHg (35.0-45.0); ABG PARTIAL PRESSURE O2 73.9 mmHg (75.0-100.0); ABG STANDARD HCO3 24.9 MEQ/L (22.0-26.0); ABG TOTAL CO2 23.5 MEQ/L (23.0-31.0); ABG pH (ARTERIAL) 7.516 UNITS (7.350-7.450)
[2021-04-30] MEDS: NS 1,000 ML IV SCH ×2 (00:25→01:20)
[2021-04-30 00:52] LABS: BASO # 0.1 10^3/uL (0.0-0.2); BASO % 0.3 % (0.0-1.0); HEMATOCRIT 30.6 % (42.0-52.0); HEMOGLOBIN 10.1 g/dl (13.5-17.5); LYMPH # 0.4 10^3/uL (1.5-5.0); MEAN CORPUSCULAR HEMOGLOBIN 23.8 pg (27.0-33.0); MONO # 1.7 10^3/uL (0.0-0.8); MONO % 8.8 % (2.0-8.0); NEUTROPHILS # 17.1 10^3/uL (1.5-8.5); NEUTROPHILS % 87.8 % (36.0-66.0); PLATELET COUNT, AUTOMATED 262 10^3/uL (150-450); RED BLOOD COUNT 4.25 10^6/uL (4.30-6.10)
[2021-04-30 01:19] LABS: ALBUMIN 1.8 GM/DL (3.2-5.2); ALT/SGPT 68 U/L (12-78); BILIRUBIN,TOTAL 0.4 MG/DL (0.2-1.0); BLOOD UREA NITROGEN 26 MG/DL (7-18); CALCIUM LEVEL 8.1 MG/DL (8.8-10.2); CARBON DIOXIDE LEVEL 25 MEQ/L (21-32); CHLORIDE LEVEL 101 MEQ/L (98-107); CREATININE FOR GFR 0.71 MG/DL (0.70-1.30); GLOMERULAR FILTRATION RATE > 60.0 (>42); GLUCOSE, FASTING 119 MG/DL (70-100); MAGNESIUM LEVEL 1.9 MG/DL (1.8-2.4); POTASSIUM SERUM 3.8 MEQ/L (3.5-5.1); SODIUM LEVEL 133 MEQ/L (136-145); TOTAL PROTEIN 5.4 GM/DL (6.4-8.2)
[2021-04-30 01:53] LABS: WHITE BLOOD COUNT 19.5 10^3/uL (4.0-10.0)
[2021-04-30 02:00] VITALS: BP 106/60
--- NOTE | 2021-04-30 02:10 | REPVR ---
PROCEDURE INFORMATION: Exam: CT Head Without Contrast Exam date and time: 04/30/2021 12:49 AM Age: 75 years old Clinical indication: Altered mental status/memory loss TECHNIQUE: Imaging protocol: Computed tomography of the head without contrast. Radiation optimization: All CT scans at this facility use at least one of these dose optimization techniques: automated exposure control; mA and/or kV adjustment per patient size (includes targeted exams where dose is matched to clinical indication); or iterative reconstruction. COMPARISON: CT Neck with contrast 05/18/2015 8:00 AM FINDINGS: Brain: There is mild cerebral volume loss. Changes of chronic white matter microvascular disease are present. No signs of a recent infarction or hemorrhage. No midline shift or mass effect. Cerebral ventricles: No ventriculomegaly. Paranasal sinuses: Visualized sinuses are clear. Mastoid air cells: Mastoid air cells are clear. Bones/joints: Unremarkable. No acute fracture. Soft tissues: Unremarkable. IMPRESSION: Mild cerebral volume loss and chronic white matter changes. No acute intracranial abnormality. Electronically signed by: Nirav Pop On 04/30/2021 02:10:17 AM
[2021-04-30] MEDS: PIPERACILLIN/TAZOBACTAM SOD 4.5 GM in D5W MINI-BAG PLUS 100 ML IV SCH ×4 (03:27→23:04)
[2021-04-30 06:00] VITALS: BP 120/69
[2021-04-30] MEDS: SYMBICORT 160/4.5MCG INHALER 6GM INH SCH ×2 (07:34→20:00)
[2021-04-30] MEDS: TIOTROPIUM INHALER/CAPSULE (SPIRIVA) INH SCH (07:35)
[2021-04-30] MEDS: SODIUM CHLORIDE HYPERTONIC 3% 15ML NEB SOL INH SCH ×5 (07:35→20:00)
[2021-04-30] MEDS: LEVALBUTEROL 1.25 MG/0.5 ML CONCENTRATE NEB INH SCH ×5 (07:35→21:24)
--- NOTE | 2021-04-30 08:08 | IPNPDOC ---
Text Note Date of Service The patient was seen on 04/30/21. NOTE Subjective: Patient seen and examined this morning at bedside. Tells me he feels about the same as yesterday. No changes. Production. No changes to her shortness of breath. Denies any chest pain. No fevers or chills reported. Overnight patient was evaluated for decreased blood pressure and confusion. This morning his blood pressure was better and he was no longer confused. He was not using his CPAP at that time. Objective: Constitutional: Awake and alert, in no apparent distress ENT: Sclera are clear. Mucosa is moist. Respiratory: Lungs diminished bilaterall. No respiratory distress. No use of accessory muscles. Saturating at 96% on 2L of oxygen which is his home oxygen requirement. Cardiovascular: RRR S1 and S2 are normal, no murmur Gastrointestinal: Abdomen is soft, non distended, non tender, BS present. Musculoskeletal: No lower extremity edema. Neurologic: No focal neurological deficit. Mental Status: A&O x3, normal affect Skin: Some skin irritation at intergluteal cleft erythema, skin color changes and fragility from fdc steroid use Imaging CT chest: IMPRESSION: 1. Loculated left pleural effusion as described above. 2. Masslike areas of consolidation seen in the left upper and middle lobes. Postobstructive pneumonia with or without malignancy cannot be ruled out. 3. There are chronic lung field changes with bronchiectasis, bronchial are opacification likely mucoid debris, and fibrotic changes as described above. Certainly, lymphangitic neoplasm cannot be ruled out Assessment/plan: 75-year-old male history of advanced COPD presents with shortness of breath and sputum production for one week suspected to have community-acquired pneumonia admitted for observation. # Pneumonia, possibly post obstructive: Given 1 dose of ceftriaxone in the ED. Started on levofloxacin IV initially which was escalated to adding vancomycin and Zosyn 04/29. QTC 430. Blood cultures and sputum cultures including fungal ordered. Duonebs as needed. Incentive spirometry. Acapella. Respiratory panel Negative. Afebrile with leukocytosis 21.6->19.9-> 19.5. Consulted Dr Miguel to help with antibiotics. Procalcitonin did improve 33->23. # multiple chest nodules/masses: CT suggestive of possibility of malignancy as well as lymphangitic neoplasm. I discussed and reviewed the case and CT imaging with treadle cut off saw operator Dr Napier who kindly agreed to see the patient in consultation. I appreciate her recommendations. Dr Napier consulted IR for CT guided percutaneous drainage to attempt to biopsy/aspirate the mass/fluid on the left side for pathology/fluid analysis and pigtail placement today. # COPD dependent on oxygen at home: Not in exacerbation good air movement and no wheezing on exam. Requiring near baseline home oxygen requirement. Chronically on azithromycin for anti-inflammatory properties. Chronically on steroids which can be continued. Duonebs as needed. Continue home medications and inhalers. # Increased BNP: Possibly from pulmonary hypertension due to advanced COPD. He is clinically euvolemic. Ordered echo. s/p one-time dose of IV Lasix # Hypertension: Normotensive. Monitor and titrate # Hyperlipidemia: Continue home medication # DVT prophylaxis: Lovelaurax A [facility], I+O VSV[facility], I+O Laboratory Tests 04/30/21 00:40 Vital Signs Date Time Temp Pulse Resp B/P (MAP) Pulse Ox O2 Delivery O2 Flow Rate FiO2 04/30/21 06:00 97.4 85 20 120/69 (86) 97 Nasal Cannula 1.0 I&O- Last 24 Hours up to 6 AM 04/30/21 06:00 Intake Total 3410 ml Output Total 750 ml Balance 2660 ml HARDY MAJOR MD Apr 30, 2021 08:08
[2021-04-30] MEDS: ENOXAPARIN 40MG/0.4ML SYRINGE (J1650 PER 10MG) SC SCH (09:00)
[2021-04-30] MEDS: guaiFENesin ER 600 MG TAB PO SCH ×2 (09:14→20:27)
[2021-04-30] MEDS: predniSONE 10 MG TAB PO SCH (09:14)
[2021-04-30] MEDS: SOLIFENACIN 5 MG TAB PO SCH (09:14)
[2021-04-30] MEDS: FERROUS SULFATE 325MG TAB PO SCH (09:14)
[2021-04-30] MEDS: DOCUSATE SODIUM 100MG CAPSULE PO SCH ×2 (09:14→20:27)
[2021-04-30] MEDS: NYSTATIN 100,000 UNITS/GM TOPICAL PWD 15 GM TOP SCH ×2 (09:15→20:26)
[2021-04-30 11:17] LABS: INR 1.35
[2021-04-30] MEDS: VANCOMYCIN HCL 1,000 MG, VIAL MATE ADAPTER 1 EACH in NS 250 ML IV SCH (12:32)
[2021-04-30] MEDS ORDERED: LIDOCAINE 1% MDV 20ML VIAL As Ordered ONE (13:02)
[2021-04-30] MEDS ORDERED: SODIUM BICARBONATE 8.4% INJ 50MEQ 50 ML VIAL As Ordered ONE (13:02)
--- NOTE | 2021-04-30 16:52 | REP ---
INDICATION: POST THORA, 2 VIEW. COMPARISON: 04/28/2021. TECHNIQUE: Two views chest. FINDINGS: There has been placement of a left pleural pigtail drainage catheter inferolaterally. There is no pneumothorax. Loculated pleural fluid is noted on the left. There are bibasilar parenchymal opacities essentially unchanged, left greater than right. The heart and mediastinum are grossly unchanged. IMPRESSION: Placement of left inferior pleural pigtail drainage catheter. No pneumothorax. <Electronically signed by Karlos Bay > 04/30/21 [id number]
[2021-04-30 16:58] VITALS: BP 133/78
[2021-04-30 18:12] LABS: APPEARANCE, BODY FLUID CLOUDY (CLEAR); PLEURAL FL COLOR AMBER (COLORLESS); SOURCE, BODY FLUID PLEURAL
--- NOTE | 2021-04-30 18:29 | CR ---
INFECTIOUS DISEASE CONSULTATION DATE: 04/30/2021 REASON FOR CONSULTATION: Asked to consult by hospitalist for evaluation of pneumonia with a loculated pleural effusion HISTORY OF PRESENT ILLNESS: Mr. Cheek is a pleasant 75-year-old gentleman with a history of chronic obstructive pulmonary disease (COPD), oxygen dependent on 2 liters. He was admitted with complaints of increasing shortness of breath, weakness and cough productive of thick greenish phlegm, which had increased in amount. The patient is usually on chronic steroids, 20 mg alternating with 10 mg, Zithromax and oxygen at 2 liters. He also has a continuous positive airway pressure (CPAP). Patient had increasing shortness of breath with exertion of one week duration. He describes his phlegm as being green to yellowish in color. He had some chest tightness. He does not recall having fever or chills. He had some pleuritic chest pain. The patient also has been on chronic Zithromax five days a week, prescribed by Dr. Thacker, for recurrent COPD exacerbation. He has a history of Pseudomonas aeruginosa on sputum culture in the past and bronchiectasis. He denied any nausea, vomiting or diarrhea. PAST MEDICAL HISTORY: Significant for: 1. Chronic obstructive pulmonary disease (COPD) with chronic hypoxic respiratory failure on 2 liters oxygen and chronic steroids. 2. Obstructive sleep apnea on continuous positive airway pressure (CPAP) . 3. Hyperlipidemia. 4. Hypertension. PAST SURGICAL HISTORY: 1. Right shoulder replacement. 2. Prostate cancer status post radiation. 3. Back surgery. FAMILY HISTORY: Lung disease in his father. SOCIAL HISTORY: Quit smoking over 25 years ago, but smoked for many years. No alcohol or illicit drug use. He lives with his at home and they have a dog. He still is able to walk his dog. MEDICATIONS: - prednisone 20 mg alternating with 10 mg every other day - Lipitor 10 mg by mouth at bedtime - levofloxacin 750 mg intravenous (IV) every 24 hours, of which patient received two doses - vancomycin 1 gram IV every 12 hours - Patient has received two days of Zosyn 4.5 grams IV every 6 hours - VESIcare 10 mg by mouth daily - iron sulfate 325 mg by mouth daily - Mucinex 1200 mg by mouth twice a day - Lovenox 40 mg subcutaneous daily - Spiriva one inhalation daily - budesonide/formoterol 2 puffs inhaled twice a day - Nystatin in gluteal cleft twice a day - Colace 100 mg by mouth twice a day - Milk of Magnesia as needed - albuterol and Atrovent nebulizers as needed ALLERGIES: No known drug allergies. REVIEW OF SYSTEMS: Patient complained of shortness of breath with cough productive of greenish phlegm. He has some chest tightness. He has no nausea, vomiting, diarrhea, abdominal pain, weight loss. LABORATORY DATA: On admission: White count 21.6 with 30% bands. Today, his white count is 19.5, hemoglobin 10.1, hematocrit 30.6, platelets 262, 88% neutrophils, 10% lymphocytes, 9% monocytes. Sodium 133, potassium 3.8, chloride 101, bicarbonate 25, BUN 26, creatinine 0.71, glucose 119, calcium 8.1, magnesium 1.9. AST 86, ALT 68, alkaline phosphatase 74, ammonia 16, total protein 5.4, albumin 1.8. Procalcitonin was 33.59 down to 22.6. Vancomycin trough was 9.2. Methicillin-resistant Staphylococcus aureus (MRSA) screen was not detected. Mycoplasma IgM and IgG. Urine Legionnaire antigene is pending. Beta 1, 3-Glucan is pending. Pneumococcal antigen is pending. Fluid from left pleural effusion is pending. Blood cultures, two sets, are no growth after 48 hours. Respiratory panel is negative. Acid-fast bacilli (AFB) smear and culture is pending. Pleural fluid, gram stain culture is pending. Sputum culture is pending. Gram stain on the sputum has many white cells, few epithelial cells, moderate gram-positive cocci in pairs, chains, clusters, few gram-positive rods. IMAGING DATA: Chest CT showed a pleural effusion that was loculated on the left side with area of consolidation mass on the left upper lobe, wedge opacity in the right middle lobe and bronchial occlusion, advanced chronic lung disease with bronchiectasis. Pleural fluid: Only 30 mL of serosanguinous fluid was drained. There was no purulence, nothing to suggest empyema. Head CT was negative except for mild volume loss. PHYSICAL EXAMINATION: Temperature 99, pulse 83, respirations 18, oxygen saturation 95% on 2 liters nasal cannula. HEART: Normal S1, S2. Distant. No murmurs. LUNGS: Diminished breath sounds at the left base. Diminished air entry bilaterally. No wheezes or rhonchi. ABDOMEN: Soft, nontender. No hepatosplenomegaly. BACK: No costovertebral angle (CVA) or lumbosacral tenderness. EXTREMITIES: No clubbing, cyanosis or edema. He has a tattoo on the calf. SKIN: With no rashes, but he has large ecchymoses on both dorsal aspects of the hand, thin skin from chronic steroid use. NEUROLOGIC EXAM: Alert times one, but oriented to person. Motor strength is normal. IMPRESSION: This is a 75-year-old gentleman admitted with pneumonia and a peripneumonic effusion. From the drainage he had today, 30 mL of fluid was drained today. It did not look like an empyema. His white count was elevated 21.6 with 30% bands and very high procalcitonin makes bacterial pneumonia very likely. Since his methicillin-resistant Staphylococcus aureus (MRSA) screen was negative, I do not see an indication for vancomycin. Patient sounds like he may have pseudomonas pneumonia, has very thick, green phlegm, and I would agree with use of intravenous (IV) Zosyn, as he has previously had pseudomonas in sputum cultures and he is at high risk due to advanced chronic lung disease and bronchiectasis. This is very unlikely also to be atypical pathogen, such as Legionnaire, mycoplasma. This is more of a typical pneumonia with typical pathogens causing bandemia and leukocytosis. PLAN: Discontinue levofloxacin. Patient has received two doses so far. Discontinue IV vancomycin. MRSA screen was negative. Continue IV Zosyn at current dose until sputum culture is available. Case has been discussed with Dr. Gordon. Patient had a failed attempt on more drainage, as patient definitely has more than 30 mL in his chest. I will get a followup chest x-ray in the next couple of days to follow up on effusion.
[2021-04-30] MEDS ORDERED: VANCOMYCIN HCL 750 MG, VIAL MATE ADAPTER 1 EACH in NS 250 ML IV SCH (20:00)
[2021-04-30] MEDS: ACETAMINOPHEN TAB 650MG DOSE (2X325MG) PO PRN (20:27)
[2021-04-30] MEDS: ATORVASTATIN 10 MG TAB PO SCH (20:27)
[2021-04-30 22:00] VITALS: BP 122/73
[2021-05-01] MEDS: PIPERACILLIN/TAZOBACTAM SOD 4.5 GM in D5W MINI-BAG PLUS 100 ML IV SCH ×4 (05:04→22:40)
[2021-05-01 06:00] VITALS: BP 121/69
[2021-05-01] MEDS: TIOTROPIUM INHALER/CAPSULE (SPIRIVA) INH SCH (07:08)
[2021-05-01] MEDS: SODIUM CHLORIDE HYPERTONIC 3% 15ML NEB SOL INH SCH ×4 (07:09→19:13)
[2021-05-01] MEDS: LEVALBUTEROL 1.25 MG/0.5 ML CONCENTRATE NEB INH SCH ×4 (07:09→19:13)
[2021-05-01] MEDS: SYMBICORT 160/4.5MCG INHALER 6GM INH SCH ×2 (07:09→19:13)
--- NOTE | 2021-05-01 08:41 | REP ---
INDICATION: loculated left pleural effusion, possible empyema. COMPARISON: None. TECHNIQUE: The procedure is performed by FELTON Go, under the direct supervision of Dr. Bay. The risks and benefits of the procedure were explained to the patient as well as the patient's healthcare proxy and informed consent was obtained orally over the phone. Directly prior to the start of the procedure, a formal timeout was done in the exam room. The left upper lung zone fluid collection was localized using CT guidance. FINDINGS: Multiple attempts were made to gain access to the fluid collection. However the patient was unable to maintain his position long enough. It was then decided to try to do the procedure under ultrasound guidance. IMPRESSION: Attempted pigtail catheter placement under CT guidance. <Electronically signed by Daya Olson > 04/30/21 1736 <Electronically signed by Karlos Bay > 05/01/21 [id number]
--- NOTE | 2021-05-01 08:41 | REP ---
INDICATION: LEFT PLEURAL EFFUSION The patient has a history of loculated pleural effusion COMPARISON: None. TECHNIQUE: The procedure was performed by Daya Olson [facility], under the direct supervision of Dr. Bay The risks and benefits of the procedure were explained to the patient and an informed consent was obtained both verbally and written. Directly prior to the start of the procedure a formal time-out was completed in the procedure room. Pleural fluid in left lower lung zone was localized using ultrasound guidance. The skin was prepped and draped in a sterile fashion. Eighteen ML of buffered lidocaine was used as a local anesthetic. Using ultrasound guidance an 8-Austrian multi side-hole pigtail catheter was inserted using trocar technique. FINDINGS: Thirty-one mL of divine colored fluid was withdrawn and sent to the laboratory for further analysis. The catheter was sutured into place, a sterile dressing was applied, and a drainage bag was attached. The patient tolerated the procedure well and there were no immediate complications. After the appropriate amount of monitored convalescence, the patient was discharged from the department. IMPRESSION: Ultrasound-guided pigtail catheter placement into left lower lung zone loculated pleural effusion. <Electronically signed by Daya Olson > 04/30/21 0231 <Electronically signed by Karlos Bay > 05/01/21 3503
[2021-05-01] MEDS: NYSTATIN 100,000 UNITS/GM TOPICAL PWD 15 GM TOP SCH ×2 (09:52→20:15)
[2021-05-01] MEDS: DOCUSATE SODIUM 100MG CAPSULE PO SCH ×2 (09:53→20:15)
[2021-05-01] MEDS: SOLIFENACIN 5 MG TAB PO SCH (09:53)
[2021-05-01] MEDS: guaiFENesin ER 600 MG TAB PO SCH ×2 (09:53→20:15)
[2021-05-01] MEDS: predniSONE 20 MG TAB PO SCH (09:53)
[2021-05-01] MEDS: FERROUS SULFATE 325MG TAB PO SCH (09:53)
[2021-05-01] MEDS: ENOXAPARIN 40MG/0.4ML SYRINGE (J1650 PER 10MG) SC SCH (09:53)
--- NOTE | 2021-05-01 11:51 | REP ---
INDICATION: sob. COMPARISON: Comparison radiograph April 30, 2021 and April 28, 2021. TECHNIQUE: Portable upright AP chest radiograph. FINDINGS: A pigtail catheter is noted in the left base. There is blunting of the left lateral pleural angle and some loculated pleural fluid is seen projecting in the perihilar region consistent with fissural fluid. There is left lateral pleural thickening as well. Findings are similar to the 04/30/2021 study on the left.. There are increased parenchymal markings in the left lower lobe as well.. There is a nodular opacityr projecting at the right base measuring 2.6 cm in diameter. This is unchanged. The right lung remains otherwise clear. A prosthetic right shoulder arthroplasty is seen in place. There is advanced arthropathy affecting the left shoulder. IMPRESSION: Pigtail catheter at the left base with left pleural fluid including for loculated appearing fissural fluid. Increased markings left base. Stable 2.6 cm nodule right base.. <Electronically signed by Raymond Sun > 05/01/21 0650
[2021-05-01] MEDS: PERCOCET 5MG/325MG TAB PO PRN (12:23)
--- NOTE | 2021-05-01 13:25 | IPN ---
PROGRESS NOTE DATE: 05/01/2021 SUBJECTIVE: The patient is seen and examined this morning at bedside. He states he is feeling somewhat worse than yesterday since his procedure. He is having some pain in his back and feels short of breath anytime he moves around from his bed. He does note his shortness of breath resolves as soon as he stops moving. Currently he is sitting up on the edge of the bed to eat breakfast and does not feel short of breath. He does report some pain in his back around the site of the drain placement. No fevers or chills overnight. OBJECTIVE: Vital signs: Temperature 98.5 degrees Fahrenheit oral, heart rate 80, respiratory rate 19, blood pressure 121/69, satting 94% on two liters via nasal cannula. General: The patient is alert and comfortable, sitting up on the edge of the bed in no acute distress. HEENT: Normocephalic, atraumatic. Moist mucous membranes. Sclerae anicteric. Neck: Trachea midline, supple. Lungs: Right lung is clear to auscultation with diminished breath sounds throughout. Left lung has diminished breath sounds at the bases without any wheezing or rhonchi. Heart: Regular rate and rhythm, normal S1 and S2. Abdomen: Soft, nontender, nondistended, bowel sounds present. Extremities: No edema. LABORATORY DATA: White blood cell 19.5, hemoglobin 120.1, hematocrit 30.6, platelet 262. Sodium 133, potassium 3.8, chloride 101, bicarb 25, BUN 26, creatinine 0.71, glucose 119, calcium 8.1, magnesium 1.9. Laboratory data is from 04/30/21 at 0040. There is no new lab work to review from today. Pleural fluid analysis: Fluid WBC 5342, fluid RBC 24, fluid mononuclear cells 18.9%, fluid poly PMNs 81.1%. Fluid culture and fungal smear remain pending. IMAGING: Chest x-ray after pigtail drainage catheter was placed reviewed shows loculated pleural fluid on the left side and bibasilar parenchymal opacities, left greater than right. No pneumothorax. Left inferior pleural pigtail drainage catheter in place. ASSESSMENT AND PLAN: This is a 75-year-old male who presented with worsening shortness of breath, found to have left-sided pneumonia with fluid collection concerning for empyema versus parapneumonic effusion, status post pigtail catheter with drainage placement. 1. Left-sided pneumonia with empyema versus effusion. The patient continues on antibiotic coverage with Zosyn. Levaquin and vancomycin were discontinued yesterday by infectious disease specialist. Pigtail catheter is now in place and is draining clear sanguineous fluid. I do not appreciate any pus in the drainage bag or tubing. It is possible that there are some areas of empyema which are not accessed by the pigtail and he may need further treatment. The patient does report some more symptomatology today but overall his clinical picture has remained stable. 2. COPD. He is not in acute exacerbation. He continues on Spiriva, Symbicort and Xopenex. Dr. Gordon; I saw the patient and participated in the winston elements of the evaluation as outlined above. This patient has advanced COPD at baseline and is oxygen and steroid dependent. Office notes indicate severe COPD. The CT shows a loculated effusion and the Gram's stain did not show bacteria. He does appear to be responding to the antibiotics and the pigtail catheter is actively draining. MTDD
[2021-05-01 14:00] VITALS: BP 103/68
--- NOTE | 2021-05-01 14:38 | IPN ---
PROGRESS NOTE DATE: 05/01/2021 SUBJECTIVE: Patient's shortness of breath is slightly improved. He is still with slight cough. No fever or chills overnight. No chest pain, pressure, tightness. Status post chest biopsy yesterday and pigtail catheter placement. No issues overnight. PHYSICAL EXAMINATION: LUNGS: Diminished. No wheezing or rales. HEART: S1, S2. Sinus rhythm. ABDOMEN: Soft, nontender, nondistended. . EXTREMITIES: No cyanosis, clubbing or pitting edema. SKIN: Left lower back pigtail catheter noted. Patient had many ecchymotic areas bilateral hands. LABORATORY DATA: Laboratory data, imaging studies and microbiology have been reviewed. ASSESSMENT: This is a 75-year-old male admitted on 04/28/2021 with history of chronic obstructive pulmonary disease (COPD) on 2 liters oxygen, chronic hypoxic respiratory failure, hypertension not on medication, hyperlipidemia, obstructive sleep apnea (MARGARETTE) on continuous positive airway pressure (CPAP), right shoulder replacement, prostate cancer radiation, quit smoking 25 years ago, admitted due to shortness of breath for one week as well as cough productive of green sputum as well as history of pseudomonas infection in the lung previously. Patient was seen by blueprint engineer, Dr. Napier. CT chest reviewed, showed emphysema, bronchiectasis, with ovoid opacity in the right major fissure, pleural based nodule in the right upper lobe. Patient is being treated for the following issues: 1. Pneumonia with prior history of pseudomonas in a patient with chronic obstructive pulmonary disease on chronic steroids and chronic azithromycin. 2. Bronchiectasis. 3. Anemia of chronic disease. 4. Pulmonary nodule. 5. Chronic hypoxic and hypercarbic respiratory failure. 6. Elevated BNP secondary to chronic obstructive pulmonary disease (COPD). 7. Hypertension. 8. Hyperlipidemia. PLAN: Per Dr. Miguel, patient should be continued on Zosyn for pseudomonas infection until sputum culture has been finalized, and then deescalate antibiotics. He is currently medically stable status post pigtail catheter placement on 04/30/2021. Drainage with 31 mL of divine-colored fluid was drawn for further analysis. Patient is continued on all other home medications, atorvastatin, prednisone, Xopenex, ferrous sulfate, Lovenox for deep venous thrombosis (DVT) prophylaxis, Colace, Mylanta, Mild of Magnesia, acetaminophen, Duo-Nebs and Mucinex for bronchiectasis. Continue with incentive spirometry and Acapella.
[2021-05-01 16:12] LABS: MYCOPLASMA PNEUMONIAE IgG 621 U/mL (0-99); MYCOPLASMA PNEUMONIAE IgM <770 U/mL (0-769)
[2021-05-01] MEDS: ACETAMINOPHEN TAB 650MG DOSE (2X325MG) PO PRN (20:14)
[2021-05-01] MEDS: ATORVASTATIN 10 MG TAB PO SCH (20:14)
[2021-05-01 22:00] VITALS: BP 127/75
--- NOTE | 2021-05-01 23:27 | ECHO ---
ECHOCARDIOGRAM DATE OF PROCEDURE: 05/01/2021 Age: 75 Gender: Male Height: 183 cm Weight: 72 kg REFERRING PHYSICIAN: Dr. Eric Hudson INDICATION: Dyspnea unspecified MEASUREMENTS: 2D Measurements: LVOT 2.1 cm Intraventricular septum 0.61 cm Posterior wall 0.74 cm Aortic root 3.6 cm Left atrium 2.4 cm Inferior vena cava 1.6 cm (more than 50% respiratory variation) Doppler Measurements: No aortic stenosis No aortic regurgitation LVOT velocity 103 cm/s No mitral regurgitation No mitral stenosis Trace tricuspid regurgitation No pulmonic regurgitation DESCRIPTION: Rhythm was sinus. This was a moderately technically difficult echocardiogram. This was a 2D, M-mode, color flow Doppler, and pulsed wave Doppler examination and included mitral annular tissue Doppler. CONCLUSIONS: 1. Normal left ventricle internal dimensions and wall thickness. Normal regional LV wall motion and wall thickening. Normal LV systolic function. LVEF 65% by visual estimate. Insufficient data collection for determination of LV diastolic function. 2. Normal right ventricle size and systolic function. Right ventricle systolic pressure could not be assessed on this study. 3. Moderate aortic valve sclerosis of a 3-cuspid aortic valve. No air restriction. Aortic valves do not appear to be stenotic. 4. No pericardial effusion. 5. Moderately technically difficult echocardiogram. [facility]
[2021-05-02] MEDS: PIPERACILLIN/TAZOBACTAM SOD 4.5 GM in D5W MINI-BAG PLUS 100 ML IV SCH ×4 (05:01→22:24)
[2021-05-02 06:00] VITALS: BP 122/72
[2021-05-02] MEDS: SODIUM CHLORIDE HYPERTONIC 3% 15ML NEB SOL INH SCH ×4 (07:10→19:26)
[2021-05-02] MEDS: SYMBICORT 160/4.5MCG INHALER 6GM INH SCH ×2 (07:10→19:26)
[2021-05-02] MEDS: LEVALBUTEROL 1.25 MG/0.5 ML CONCENTRATE NEB INH SCH ×4 (07:10→19:26)
[2021-05-02] MEDS: TIOTROPIUM INHALER/CAPSULE (SPIRIVA) INH SCH (07:10)
[2021-05-02] MEDS: ENOXAPARIN 40MG/0.4ML SYRINGE (J1650 PER 10MG) SC SCH (09:39)
[2021-05-02] MEDS: guaiFENesin ER 600 MG TAB PO SCH ×2 (09:40→21:40)
[2021-05-02] MEDS: DOCUSATE SODIUM 100MG CAPSULE PO SCH ×2 (09:40→21:40)
[2021-05-02] MEDS: predniSONE 10 MG TAB PO SCH (09:40)
[2021-05-02] MEDS: PERCOCET 5MG/325MG TAB PO PRN ×2 (09:40→17:42)
[2021-05-02] MEDS: SOLIFENACIN 5 MG TAB PO SCH (09:40)
[2021-05-02] MEDS: FERROUS SULFATE 325MG TAB PO SCH (09:40)
[2021-05-02] MEDS: NYSTATIN 100,000 UNITS/GM TOPICAL PWD 15 GM TOP SCH ×2 (09:41→21:41)
--- NOTE | 2021-05-02 10:46 | IPNPDOC ---
Date Seen The patient was seen on 05/02/21. Progress Note SUBJECTIVE: cough w yellow thick sputum improved. no fever or chills. "achy at pigtail cath site. sob unchanged. . PHYSICAL EXAMINATION: GEN: no distress HEENT: no jvd LUNGS: Diminished. No wheezing or rales. HEART: S1, S2. Sinus rhythm. ABDOMEN: Soft, nontender, nondistended. . EXTREMITIES: No cyanosis, clubbing or pitting edema. SKIN: Left lower back pigtail catheter noted. Patient had many ecchymotic areas bilateral hands. LABORATORY DATA: Laboratory data, imaging studies and microbiology have been reviewed. ASSESSMENT: This is a 75-year-old male admitted on 04/28/2021 with history of chronic obstructive pulmonary disease (COPD) on 2 liters oxygen, chronic hypoxic respiratory failure, hypertension not on medication, hyperlipidemia, obstructive sleep apnea (MARGARETTE) on continuous positive airway pressure (CPAP), right shoulder replacement, prostate cancer radiation, quit smoking 25 years ago, admitted due to shortness of breath for one week as well as cough productive of green sputum as well as history of pseudomonas infection in the lung previously. Patient was seen by otr owner operator, Dr. Napier. CT chest reviewed, showed emphysema, bronchiectasis, with ovoid opacity in the right major fissure, pleural based nodule in the right upper lobe. Patient is being treated for the following issues: 1. Pneumonia with prior history of pseudomonas in a patient with chronic obstructive pulmonary disease on chronic steroids and chronic azithromycin. 2. Bronchiectasis. 3. Anemia of chronic disease. 4. Pulmonary nodule. 5. Chronic hypoxic and hypercarbic respiratory failure. 6. Elevated BNP secondary to chronic obstructive pulmonary disease (COPD). 7. Hypertension. 8. Hyperlipidemia. PLAN: on iv zosyn to complete a 7 day course. status post pigtail catheter placement on 04/30/2021. Drainage with 31 mL of divine-colored fluid was drawn for further analysis. Patient is continued on all other home medications, atorvastatin, prednisone, Xopenex, ferrous sulfate, Lovenox for deep venous thrombosis (DVT) prophylaxis, Colace, Mylanta, Mild of Magnesia, acetaminophen, Duo-Nebs and Mucinex for bronchiectasis. Continue with incentive spirometry and Acapella. sent pleural fluid for cytology. per pathology, nothing was sent from chest biopsy on 04/30/21. continue PT. dc plans friday or friday. VS, I&O, 24H, Fishbone Vital Signs/I&O Vital Signs Date Time Temp Pulse Resp B/P (MAP) Pulse Ox O2 Delivery O2 Flow Rate FiO2 05/02/21 10:38 20 05/02/21 06:00 98.3 84 122/72 (89) 91 Nasal Cannula 2.0 I&O- Last 24 Hours up to 6 AM 05/02/21 06:00 Intake Total 1110 ml Output Total 100 ml Balance 1010 ml Laboratory Data Microbiology Microbiology 04/30/21 Acid Fast Stain, Received Pending 04/30/21 Mycobacterial Culture, Received Pending 04/30/21 Fungal Smear, Received Pending 04/30/21 Fungal Culture, Received Pending 04/30/21 Gram Stain - Final, Complete 04/30/21 Body Fluid Culture - Final, Complete 04/30/21 Anaerobic Culture - Final, Complete 04/29/21 Gram Stain - Final, Complete 04/29/21 Sputum Culture - Final, Complete Yeast Like Organism 04/29/21 Acid Fast Stain - Final, Resulted 04/29/21 Mycobacterial Culture, Resulted Pending 04/29/21 Fungal Smear, Resulted Pending 04/29/21 Fungal Culture, Resulted Pending 04/28/21 Blood Culture - Preliminary, Resulted No Growth after 72 hours. All specime... 04/28/21 Respiratory Virus Panel (PCR) ([facility]) - Final, Complete 04/28/21 Blood Culture - Preliminary, Resulted No Growth after 72 hours. All specime... KONG RAND MD May 02, 2021 10:46
[2021-05-02 11:34] LABS: BASO % 0.2 % (0.0-1.0); EOS % 0.1 % (0.0-3.0); HEMATOCRIT 32.1 % (42.0-52.0); HEMOGLOBIN 10.2 g/dl (13.5-17.5); LYMPH # 0.6 10^3/uL (1.5-5.0); LYMPH % 3.5 % (24.0-44.0); MEAN CORPUSCULAR HEMOGLOBIN 23.4 pg (27.0-33.0); MEAN CORPUSCULAR HGB CONC 31.8 g/dl (32.0-36.5); MEAN CORPUSCULAR VOLUME 73.8 fl (80.0-96.0); MONO # 1.1 10^3/uL (0.0-0.8); MONO % 6.4 % (2.0-8.0); NEUTROPHILS # 14.8 10^3/uL (1.5-8.5); NEUTROPHILS % 88.3 % (36.0-66.0); PLATELET COUNT, AUTOMATED 238 10^3/uL (150-450); RED BLOOD COUNT 4.35 10^6/uL (4.30-6.10); WHITE BLOOD COUNT 16.8 10^3/uL (4.0-10.0)
[2021-05-02 11:58] LABS: BLOOD UREA NITROGEN 17 MG/DL (7-18); CALCIUM LEVEL 8.5 MG/DL (8.8-10.2); CARBON DIOXIDE LEVEL 25 MEQ/L (21-32); CHLORIDE LEVEL 104 MEQ/L (98-107); CREATININE FOR GFR 0.46 MG/DL (0.70-1.30); GLOMERULAR FILTRATION RATE > 60.0 (>42); GLUCOSE, FASTING 96 MG/DL (70-100); POTASSIUM SERUM 3.6 MEQ/L (3.5-5.1); SODIUM LEVEL 136 MEQ/L (136-145)
[2021-05-02 12:05] LABS: ERYTHROCYTE SEDIMENTATION RATE 95 mm/hr (0-20)
[2021-05-02 12:08] LABS: BODY FLUID CULTURE Not indicated. (.); LEGIONELLA ANTIGEN URINE Negative (Negative); ORGANISM ID Not indicated. (.); SPECIMEN SOURCE Urine (.); URINE STREP PNEUMONIAE ANTIGEN Negative (Negative)
--- NOTE | 2021-05-02 13:21 | IPN ---
PROGRESS NOTE DATE: 05/02/2021 SUBJECTIVE: Patient is seen and examined at bedside. He states he continues to have pain along his left lower back, where the pigtail catheter is in place. He reports his shortness of breath with movement has improved since yesterday morning. He has had about 100 mL of fluid removed via the pigtail catheter in his left chest overnight. This morning there appears to be a small amount of fluid in the bag attached to the catheter. OBJECTIVE: VITAL SIGNS: Temperature 98.3 degrees Fahrenheit temporal, heart rate 84, respiratory rate 20, blood pressure 122/72, saturating 91% on 2 liters via nasal cannula. GENERAL: Patient appears alert and comfortable, sitting up in bed in no acute distress. HEENT: Normocephalic, atraumatic. Moist mucous membranes. Sclerae anicteric. NECK: Trachea midline. Supple. LUNGS: Right lung is clear to auscultation with diminished breath sounds throughout. Left lung has diminished breath sounds at the base and decreased breath sounds throughout the upper lung morales. No wheezing or rhonchi appreciated. HEART: Regular rate and rhythm. Normal S1, S2. ABDOMEN: Soft, nontender, nondistended. Bowel sounds present. EXTREMITIES: No edema. Pulses 2+ in dorsalis pedis and radial arteries. LABORATORY DATA: CBC and BMP are pending from this morning's lab draw. Intake and output: Patient had 1200 mL intake and 275 mL output in the last 24 hours for a net positive of 935 mL. This includes 100 mL drainage from the left posterior chest pigtail catheter. It is unclear how well his urinary output has been documented, as he has had more robust urinary output on prior days. Microbiology: Pleural fluid Gram stain and culture were negative for bacterial growth. Sputum culture grew yeast-like organism. Pleural fluid acid-fast stain and fungal culture and smear remain pending. ASSESSMENT AND PLAN: A 75-year-old male who presented initially with worsening shortness of breath, found to have left-sided pneumonia with fluid collection concerning for empyema versus parapneumonic effusion, status post pigtail catheter with drainage placement. 1. Left-sided pneumonia with parapneumonic effusion. At this point, it is unlikely an empyema that was accessed with the pigtail catheter, as no bacteria had grown on culture; however, it is possible that there are some residual areas loculated effusion that could represent empyema. We will repeat a PA and lateral chest x-ray tomorrow morning to evaluate the progress of drainage from his effusion. If he has any residual areas of effusion that are not being drained by the catheter, we may need to consider additional options, such as inserting a new catheter or using fibrinolytic therapy applied into the pleural space. Considering there is currently no evidence that this is an empyema, it is unclear if fibrinolytic therapy would be beneficial. The other option would be a surgical approach if there was residual effusion that was concerning for empyema; however, it is not clear that the patient would be a good surgical candidate. In any case, he continues on Zosyn and is being actively followed by infectious disease specialist. Clinically the patient appears stable and is not requiring any more than his home oxygen requirements. 2. Chronic obstructive pulmonary disease (COPD). He is not in acute exacerbation. He continues on Spiriva, Symbicort, and Xopenex. He is also on chronic oral steroid therapy. At some point, it would be beneficial for him to be tapered off his prednisone. Dr. Gordon; I have seen the patient and participated in the winston elements of the evaluation and medical decision process. While the patient has very significant underlying lung disease he has been reasonably compensated and does appear to be responding to the current treatment regime. I would not recommend changes at the current time and would anticipate a slow recovery given his underlying disease and immune compromised state. IGNACIO
[2021-05-02 14:00] VITALS: BP 91/55
[2021-05-02] MEDS ORDERED: POLYVINYL ALCOHOL OPHTH SOLN 15 ML(LIQUITEARS) OU PRN (16:20)
[2021-05-02] MEDS: ACETAMINOPHEN TAB 650MG DOSE (2X325MG) PO PRN (21:40)
[2021-05-02] MEDS: ATORVASTATIN 10 MG TAB PO SCH (21:40)
[2021-05-02 22:00] VITALS: BP 120/70
[2021-05-03] MEDS: PIPERACILLIN/TAZOBACTAM SOD 4.5 GM in D5W MINI-BAG PLUS 100 ML IV SCH ×4 (04:24→21:09)
[2021-05-03 06:00] VITALS: BP 105/64
[2021-05-03] MEDS: SYMBICORT 160/4.5MCG INHALER 6GM INH SCH ×2 (08:00→11:41)
[2021-05-03] MEDS: TIOTROPIUM INHALER/CAPSULE (SPIRIVA) INH SCH (08:00)
[2021-05-03] MEDS: SODIUM CHLORIDE HYPERTONIC 3% 15ML NEB SOL INH SCH ×4 (08:00→20:00)
[2021-05-03] MEDS: LEVALBUTEROL 1.25 MG/0.5 ML CONCENTRATE NEB INH SCH ×4 (08:00→20:00)
--- NOTE | 2021-05-03 08:21 | REP ---
INDICATION: f/u effusion. COMPARISON: Comparison chest x-ray May 01, 2021. TECHNIQUE: Two views.. FINDINGS: The pigtail pleural drainage catheter is again noted in the left posterolateral pleural space. There is pleural thickening at the lateral pleural angle on the left which appears slightly improved. There is a 2.5 cm nodular opacity projecting in the right mid lung unchanged. There is a pleural opacity suggesting fissural fluid in in the left mid lung which is probably a little larger than on the May 01, 2021 study. IMPRESSION: No new infiltrate. Pleural thickening and fissural fluid on the left. Pigtail catheter on the left. 2.6 cm pulmonary nodule persists on the right.. <Electronically signed by Raymond Sun > 05/03/21 [id number]
[2021-05-03] MEDS: SOLIFENACIN 5 MG TAB PO SCH (09:15)
[2021-05-03] MEDS: DOCUSATE SODIUM 100MG CAPSULE PO SCH ×2 (09:15→21:09)
[2021-05-03] MEDS: predniSONE 20 MG TAB PO SCH (09:15)
[2021-05-03] MEDS: guaiFENesin ER 600 MG TAB PO SCH ×2 (09:15→21:09)
[2021-05-03] MEDS: ENOXAPARIN 40MG/0.4ML SYRINGE (J1650 PER 10MG) SC SCH (09:15)
[2021-05-03] MEDS: FERROUS SULFATE 325MG TAB PO SCH (09:15)
[2021-05-03] MEDS: NYSTATIN 100,000 UNITS/GM TOPICAL PWD 15 GM TOP SCH ×2 (09:16→21:09)
--- NOTE | 2021-05-03 11:25 | CR ---
PULMONARY CRITICAL CARE CONSULTATION DATE: 05/03/2021 HISTORY OF PRESENT ILLNESS: The patient is seen today for reevaluation. He rested well through the night. He continues to experience some left sided back pain at the site of the pigtail catheter insertion. The catheter continues to drain. He has had no new complaints over the last 24 hours. His cough is minimally productive at this point. PHYSICAL EXAMINATION: VITAL SIGNS: Temperature is 98.5, pulse rate is 70 and regular, blood pressure is 105/64, his respiratory rate is 18 and saturation of 95% is achieved with oxygen delivered via nasal cannula at 2 liters. HEENT: His oral and nasal mucosa are pink. NECK: Supple. There is no meningismus. No adenopathy or jugular venous distention. HEART: Heart sounds are somewhat diminished but regular. No appreciable murmur or ectopy. Breath sounds are diminished globally. There is some crepitant rales at the bases more so right than left. Pigtail catheter is exiting the left chest and there is divine drainage in the bag. The abdomen is soft with intact bowel sounds. EXTREMITIES: Pulses are palpable x4. DIAGNOSTIC STUDIES: His white cell count is down to 16, hemoglobin is 10.2, hematocrit is 32.1. Platelet count is 238,000. Electrolytes: Sodium 136, potassium is 3.6, chloride is 104, CO2 is 25, BUN 17, creatinine is 0.46, glucose is 96. His C-reactive protein is down substantially at 12.1. Chest imaging is reviewed, the report is pending. However, the aeration of the left lung is improved. Pigtail catheter is unchanged in position. The volume of effusion appears to be diminished when compared to most recent prior study. IMPRESSIONS: 1. Left sided pneumonia - patient is responding to antibiotic therapy, white cell count, temperature and C-reactive protein are all moving in a positive direction. I would continue with IV Zosyn. 2. Parapneumonic effusion. Gram stain and cultures have been negative of the pleural effusion. There is some drainage persisting through the pigtail catheter and the x-ray is also improving. I would continue with pleural drainage at this point until the volume of the drainage tapers off. 3. Underlying advanced obstructive airways disease. The patient is on his maintenance medication with long-acting beta agonist, long-acting anticholinergic and inhaled corticosteroid, is requiring nebulized therapy from time to time. There is little sputum at this point to expectorate. A slow tapering dose of prednisone would be reasonable. The patient was on chronic steroids prior to admission. Patient does have a follow-up scheduled with Pulmonary in about two weeks, hopefully he will continue to improve and be able to be discharged prior to that time. Thank you for allowing us to participate in the care of this complex patient.
--- NOTE | 2021-05-03 11:33 | IPNPDOC ---
Date Seen The patient was seen on 05/03/21. Progress Note SUBJECTIVE: Shortness of breath is improved has remained afebrile no complaints of chills He still has occasional cough with scant sputum production No nausea vomiting headache or abdominal pain. No diarrhea. Complains of pain when he takes a deep breath at the Pigtail catheter site cytology is negative for malignancy PHYSICAL EXAMINATION: GEN: no distress HEENT: no jvd no use of respiratory accessory muscles no cervical lymphadenopathy thyromegaly stridor LUNGS: Diminished. No wheezing or rales. Pigtail catheter HEART: S1, S2. Sinus rhythm. ABDOMEN: Soft, nontender, nondistended. . EXTREMITIES: No cyanosis, clubbing or pitting edema. SKIN: Left lower back pigtail catheter noted. Patient had many ecchymotic areas bilateral hands. LABORATORY DATA: Laboratory data, imaging studies and microbiology have been reviewed. ASSESSMENT: This is a 75-year-old male admitted on 04/28/2021 with history of chronic obstructive pulmonary disease (COPD) on 2 liters oxygen, chronic hypoxic respiratory failure, hypertension not on medication, hyperlipidemia, obstructive sleep apnea (MARGARETTE) on continuous positive airway pressure (CPAP), right shoulder replacement, prostate cancer radiation, quit smoking 25 years ago, admitted due to shortness of breath for one week as well as cough productive of green sputum as well as history of pseudomonas infection in the lung previously. Patient was seen by nut feeder, Dr. Napier. CT chest reviewed, showed emphysema, bronchiectasis, with ovoid opacity in the right major fissure, pleural based nodule in the right upper lobe. Patient is being treated for the following issues: 1. Parapneumonic effusion/pneumonia with prior history of pseudomonas in a patient with chronic obstructive pulmonary disease on chronic steroids and chronic azithromycin. -Responding well to IV Zosyn -Decreasing white count -Clinically improving but still requiring oxygen -ID consulted -Appreciate pulmonary input and management -Keep O2 sat greater than 90 to 92% -Cytology had no malignancy on pleural fluid sample 2. Bronchiectasis. -Acapella bronchodilators supplemental oxygen -Avoid dehydration 3. Anemia of chronic disease. -Asymptomatic -No acute indication for RBC transfusion 4. Pulmonary nodule. -Outpatient follow-up with nut feeder 5. Chronic hypoxic and hypercarbic respiratory failure. 6. Elevated BNP secondary to chronic obstructive pulmonary disease (COPD). 7. Hypertension. 8. Hyperlipidemia. Disposition patient is to complete 7 days of IV Zosyn. PT OT consulted VS, I&O, 24H, Fishbone Vital Signs/I&O Vital Signs Date Time Temp Pulse Resp B/P (MAP) Pulse Ox O2 Delivery O2 Flow Rate FiO2 05/03/21 06:00 98.5 70 18 105/64 (78) 95 Nasal Cannula 2.0 I&O- Last 24 Hours up to 6 AM0 05/03/21 06:00 Intake Total 880 ml Output Total 25 ml Balance 855 ml Laboratory Data Microbiology Microbiology 04/30/21 Acid Fast Stain, Received Pending 04/30/21 Mycobacterial Culture, Received Pending 04/30/21 Fungal Smear, Received Pending 04/30/21 Fungal Culture, Received Pending 04/30/21 Gram Stain - Final, Complete 04/30/21 Body Fluid Culture - Final, Complete 04/30/21 Anaerobic Culture - Final, Complete 04/29/21 Gram Stain - Final, Complete 04/29/21 Sputum Culture - Final, Complete Yeast Like Organism 04/29/21 Acid Fast Stain - Final, Resulted 04/29/21 Mycobacterial Culture, Resulted Pending 04/29/21 Fungal Smear, Resulted Pending 04/29/21 Fungal Culture, Resulted Pending 04/28/21 Blood Culture - Preliminary, Resulted No Growth after 72 hours. All specime... 04/28/21 Respiratory Virus Panel (PCR) ([facility]) - Final, Complete 04/28/21 Blood Culture - Preliminary, Resulted No Growth after 72 hours. All specime... KONG RAND MD May 03, 2021 11:33
[2021-05-03 14:00] VITALS: BP 92/65
[2021-05-03] MEDS: PERCOCET 5MG/325MG TAB PO PRN (16:41)
[2021-05-03] MEDS ORDERED: MIDODRINE 5 MG TAB PO ONE (18:00)
[2021-05-03 18:05] LABS: BASO # 0.1 10^3/uL (0.0-0.2); BASO % 0.4 % (0.0-1.0); HEMATOCRIT 36.4 % (42.0-52.0); HEMOGLOBIN 11.6 g/dl (13.5-17.5); LYMPH # 0.6 10^3/uL (1.5-5.0); LYMPH % 2.3 % (24.0-44.0); MEAN CORPUSCULAR HEMOGLOBIN 23.4 pg (27.0-33.0); MEAN CORPUSCULAR HGB CONC 31.9 g/dl (32.0-36.5); MEAN CORPUSCULAR VOLUME 73.5 fl (80.0-96.0); MONO # 0.9 10^3/uL (0.0-0.8); MONO % 3.6 % (2.0-8.0); NEUTROPHILS # 22.1 10^3/uL (1.5-8.5); NEUTROPHILS % 91.9 % (36.0-66.0); PLATELET COUNT, AUTOMATED 275 10^3/uL (150-450); RED BLOOD COUNT 4.95 10^6/uL (4.30-6.10)
[2021-05-03 18:27] LABS: BLOOD UREA NITROGEN 18 MG/DL (7-18); CALCIUM LEVEL 8.3 MG/DL (8.8-10.2); CARBON DIOXIDE LEVEL 23 MEQ/L (21-32); CHLORIDE LEVEL 104 MEQ/L (98-107); CREATININE FOR GFR 0.59 MG/DL (0.70-1.30); GLOMERULAR FILTRATION RATE > 60.0 (>42); GLUCOSE, FASTING 120 MG/DL (70-100); POTASSIUM SERUM 3.7 MEQ/L (3.5-5.1); SODIUM LEVEL 136 MEQ/L (136-145)
[2021-05-03] MEDS: ATORVASTATIN 10 MG TAB PO SCH (21:09)
[2021-05-03] MEDS: ACETAMINOPHEN TAB 650MG DOSE (2X325MG) PO PRN (21:18)
[2021-05-03 21:45] VITALS: BP 91/60
[2021-05-04] MEDS: PIPERACILLIN/TAZOBACTAM SOD 4.5 GM in D5W MINI-BAG PLUS 100 ML IV SCH ×2 (04:24→10:20)
[2021-05-04 06:00] VITALS: BP 99/61
[2021-05-04 07:01] LABS: BLOOD UREA NITROGEN 17 MG/DL (7-18); CALCIUM LEVEL 8.4 MG/DL (8.8-10.2); CARBON DIOXIDE LEVEL 25 MEQ/L (21-32); CHLORIDE LEVEL 105 MEQ/L (98-107); GLOMERULAR FILTRATION RATE > 60.0 (>42); GLUCOSE, FASTING 87 MG/DL (70-100); POTASSIUM SERUM 3.1 MEQ/L (3.5-5.1); SODIUM LEVEL 136 MEQ/L (136-145)
[2021-05-04] MEDS: LEVALBUTEROL 1.25 MG/0.5 ML CONCENTRATE NEB INH SCH ×2 (07:24→11:27)
[2021-05-04] MEDS: SODIUM CHLORIDE HYPERTONIC 3% 15ML NEB SOL INH SCH ×2 (07:24→11:28)
[2021-05-04] MEDS: SYMBICORT 160/4.5MCG INHALER 6GM INH SCH (07:24)
[2021-05-04] MEDS: TIOTROPIUM INHALER/CAPSULE (SPIRIVA) INH SCH (07:24)
[2021-05-04 07:50] LABS: HEMATOCRIT 32.2 % (42.0-52.0); HEMOGLOBIN 10.2 g/dl (13.5-17.5); MEAN CORPUSCULAR HEMOGLOBIN 23.2 pg (27.0-33.0); MEAN CORPUSCULAR HGB CONC 31.7 g/dl (32.0-36.5); MEAN CORPUSCULAR VOLUME 73.2 fl (80.0-96.0); PLATELET COUNT, AUTOMATED 241 10^3/uL (150-450); WHITE BLOOD COUNT 15.5 10^3/uL (4.0-10.0)
[2021-05-04] MEDS ORDERED: MIDODRINE 5 MG TAB PO SCH (08:00)
[2021-05-04] MEDS: FERROUS SULFATE 325MG TAB PO SCH (08:41)
[2021-05-04] MEDS: DOCUSATE SODIUM 100MG CAPSULE PO SCH (08:41)
[2021-05-04] MEDS: predniSONE 10 MG TAB PO SCH (08:41)
[2021-05-04] MEDS: ENOXAPARIN 40MG/0.4ML SYRINGE (J1650 PER 10MG) SC SCH (08:41)
[2021-05-04] MEDS: guaiFENesin ER 600 MG TAB PO SCH (08:41)
[2021-05-04] MEDS: SOLIFENACIN 5 MG TAB PO SCH (08:41)
[2021-05-04] MEDS: NYSTATIN 100,000 UNITS/GM TOPICAL PWD 15 GM TOP SCH (08:43)
--- NOTE | 2021-05-04 09:59 | IPN ---
PULMONARY PROGRESS NOTE DATE: 05/04/2021 SUBJECTIVE: Shukri Cheek is a very pleasant 75-year-old male well-known to your practice for endstage COPD. This morning he states he is doing well. He feels he has improved his respiratory status over the past few days. He has less cough. He denies any fever overnight. He has had no hemoptysis. He has minimal discomfort at the chest tube site. There has been 0 drainage overnight. At bedside, I have milked the pigtail catheter. No significant drainage coming out. At this point in time, therefore, I took out the pigtail at bedside. All sutures were removed. The incomplete catheter was removed. There is no bleeding after the removal and a sterile dressing was placed over the site with Tegaderm. OBJECTIVE: VITAL SIGNS: Temperature is 98.1, pulse is 83, respiratory rate is 21, blood pressure is 99/61 with a MAP of 74. Oxygen saturation was 88 to 90% on 2 liters via nasal cannula. HEENT: Sclera clear. Nonicteric. Pupils are equal and reactive to light. Mucous membranes were moist. Tongue was midline. NECK: Supple. No tracheal deviation or mass. LYMPH NODES: No cervical, supraclavicular or axillary adenopathy. CARDIAC: Distant S1 and S2 without audible murmur, rub or gallop. No elevated JVP. No peripheral edema. PULMONARY: Decreased breath sounds at the left base. There was decreased tactile fremitus and E to A changes at the left base. Right base was clear with increased tactile fremitus compared to the left. The right was fairly clear although generally decreased. No rales or rhonchi on the right. There is no expiratory wheeze in either lung field but there was a prolonged expiratory phase. ABDOMEN: Soft, nontender and nondistended. No hepatosplenomegaly. No masses or hernia. EXTREMITIES: No cyanosis, clubbing or edema. MUSCULOSKELETAL: Significant muscle wasting without joint effusion or lesion. SKIN: Without rashes, jaundice or bruising. LABORATORY DATA: White count 15.5 which is down from 24 on 05/03. Hemoglobin is 10.2, hematocrit 32.2, platelet count of 241,000. Chemistries shows a sodium of 136, potassium is low at 3.1, chloride 105, bicarbonate 25. BUN 17, creatinine 0.5, calcium 8.4. No malignancy was identified in the pleural fluid. The pleural fluid was neutrophilic without any evidence of growth. IMPRESSION: 1. Left parapneumonic effusion, possible empyema, patient on day 6 to 7 of antibiotics. Recommend 14 days of antibiotics. This can be converted to oral antibiotics as long as he continues to do well. Could be discharged home. Patient feels he is close to his baseline. 2. Hypokalemia, should be replaced p.o. 3. Endstage lung disease, COPD, emphysema. Continue Symbicort, Spiriva. 4. DVT prophylaxis, on Lovenox. At this point in time will sign off. If you have any further questions or concerns, please feel free to call the Pulmonary Service back.
[2021-05-04] MEDS ORDERED: BACI1CAP PO (10:10)
[2021-05-04] MEDS ORDERED: MIDO5TA PO (10:10)
[2021-05-04] MEDS ORDERED: AUGM875T28 PO (10:10)
[2021-05-04 10:23] LABS: C REACTIVE PROTEIN QUANTITATIV 9.71 MG/DL (0.00-0.30)
--- NOTE | 2021-05-04 13:24 | DSES ---
DISCHARGE SUMMARY DATE OF ADMISSION: 04/29/2021 DATE OF DISCHARGE: 05/04/2021 CONSULTANTS: 1. Shukri Gordon M.D., pulmonology. 2. Hipolito Granados D.O., pulmonology. 3. Sharda Napier M.D., pulmonology. 3. Naya Miguel, infectious disease specialist. PRIMARY DISCHARGE DIAGNOSES: 1. Peripneumonic effusion. 2. Pulmonary nodule. 3. Bronchiectasis. 4. Anemia of chronic disease. 5. Chronic hypoxic and hypercarbic respiratory failure. 6. Hypertension. 7. Hyperlipidemia. 8. Debility. 9. Hypotension. DISCHARGE MEDICATIONS: - Augmentin 875 mg by mouth twice a day for 14 days - Bacid one capsule with meals and at bedtime - midodrine 10 mg three times a day - atorvastatin 10 mg daily - Patient may resume his chronic azithromycin after Augmentin has been completed - Pulmicort 0.5 inhaled twice a day - ferrous sulfate 325 mg daily - fluticasone one spray twice a day as needed - Mucinex 1200 mg twice a day - Combivent one puff twice a day as needed - Xopenex 1.25 mg four times a day - Nystatin 5 mL swish and spit twice a day - Percocet one tablet every 8 hours as needed - prednisone 20 mg every second day - VESIcare 10 mg daily - Incruse Ellipta one puff daily - PreserVision Areds two capsules daily - zinc 50 mg daily Patient's Norvasc and irbesartan have been discontinued due to low blood pressure. HOSPITAL COURSE: This is a 75-year-old male admitted on 04/28/2021 with history of chronic obstructive pulmonary disease (COPD) on 2 liters oxygen, hypertension, hyperlipidemia, obstructive sleep apnea (MARGARETTE) on continuous positive airway pressure (CPAP), prostate cancer status post radiation, right shoulder replacement and quit smoking 25 years ago, presented with one week history of productive sputum, cough with green discharge, with prior history of pseudomonas in the past. Imaging studies, CT chest, was reviewed by Dr. Napier, irrigation district manager, initially, who agreed that the patient may have a postobstructive pneumonia or peripneumonic effusion and bronchiectasis. A pigtail catheter was placed with continued use of intravenous Zosyn. Dr. Naya Miguel was consulted. Pleural fluid had no growth aerobically or anaerobically. After pigtail catheter had been placed, patient's white count had decreased to 15.5 from peak white count of 24,000. Patient clinically improved and was on baseline 2 liters home oxygen. Pigtail catheter was removed by irrigation district manager, Dr. Granados, and patient was instructed to continue 14 days of Augmentin as outpatient. Patient had hypotension and his blood pressure medications were held. He was started on midodrine 10 mg three times a day and was able to keep his mean arterial pressure at 70-74. PHYSICAL EXAMINATION ON DISCHARGE: Temperature 98.1, pulse 83, respiratory rate 21, blood pressure 99/61, mean arterial pressure 74, 88% to 92% on nasal cannula. GENERAL: Patient appears his stated age. No use of respiratory accessory muscles. HEENT: No jugular venous distention (JVD) or thyromegaly. LUNGS: Diminished breath sounds. HEART: S1, S2. Sinus rhythm. ABDOMEN: Soft, nontender, nondistended. Positive bowel sounds. EXTREMITIES: No lower extremity edema. LABORATORY DATA: Laboratory data, imaging studies, microbiology: Please see the chart. TIME SPENT ON DISCHARGE: 30 minutes. MTDD
--- NOTE | 2021-05-04 13:38 | IPN ---
PROGRESS NOTE DATE: 05/04/2021 Mr. Cheek is doing well. He is on oxygen at 2 liters nasal cannula, which is at his baseline. Oxygen saturation fluctuating between 88%-92%. He states he still has some shortness of breath but it is improved. He has had no nausea, vomiting, abdominal pain, but states he had five bowel movements this morning and does not want stool softeners. He has been on Colace twice a day. He has a cough productive of greenish phlegm. MEDICATIONS: Zosyn 4.5 grams intravenous (IV) every 6 hours, day #6. LABORATORY DATA: White count 15.5, hemoglobin 10.2, hematocrit 32.2, platelets 240. Sodium 136, potassium 3.1, chloride 105, bicarbonate 25, BUN 17, creatinine 4.5, glucose 87, calcium 8.4. Procalcitonin 1.56, down from 33.58. Sputum culture had only yeast-like organism. Pleural fluid culture was negative. Blood cultures times two sets were negative. Pleural fluid had 5342 white cells with 81% PMNs, but Gram stain and culture were negative. Followup chest x-ray down today shows no new infiltrate. Pleural thickening and fissural fluid on the left side. Pigtail catheter on the left and a 2.6 pulmonary nodule persist on the right side. This was a chest x-ray done on May 03. PHYSICAL EXAMINATION: Today temperature is 98.1, pulse 83, respirations 21, blood pressure 99/61, oxygen saturation 88%-92% on 2 liters nasal cannula. HEART: Normal S1, S2, distant. LUNGS: Decreased breath sounds at the left base. Right was clear. No rales or rhonchi. He has a few expiratory wheezes bilaterally. ABDOMEN: Soft, nontender. No hepatosplenomegaly. EXTREMITIES: No clubbing, cyanosis, or edema. Tattoo along the calf. IMPRESSION: 1.Left-sided pneumonia with parapneumonic effusion, status post drainage. Pigtail was removed today. 2. Diarrhea, on Colace. Colace and laxatives have been discontinued today. 3. End-stage lung disease with (COPD). Patient at baseline 2 liters nasal cannula. PLAN: Agree with Dr. Granados. Patient could be switched to Augmentin 875 mg by mouth twice a day to finish a 2-week course of antibiotics. He could followup with pulmonary and his primary care provider on discharge. He does not need any infectious disease followup. IGNACIO
== END 2021-05-04 12:05 | disposition home health service (06) | DRG 177 ==
LOC: M ED 13:06 → M ED INP 13:07 → ENRESERV 17:14 → M MS5PR 18:05 → OBSVTOIN 04-29 08:29
PROVIDERS: ADMIT Family Medicine; ATTEND General Practice
PROC: 0W9B30Z Drainage of Left Pleural Cavity with Drainage Device, Percutaneous Approach (ICD-10-PCS; principal; 2021-04-30 14:00)
DX: J15.1 Pneumonia due to Pseudomonas (principal); J86.9 Pyothorax without fistula; J90 Pleural effusion, not elsewhere classified; J44.0 Chronic obstructive pulmonary disease with (acute) lower respiratory infection; J96.11 Chronic respiratory failure with hypoxia; J98.11 Atelectasis; J96.12 Chronic respiratory failure with hypercapnia; Z99.81 Dependence on supplemental oxygen; I10 Essential (primary) hypertension; E78.5 Hyperlipidemia, unspecified; G47.33 Obstructive sleep apnea (adult) (pediatric); Z85.46 Personal history of malignant neoplasm of prostate; Z87.891 Personal history of nicotine dependence; Z96.611 Presence of right artificial shoulder joint; Z79.899 Other long term (current) drug therapy; R91.1 Solitary pulmonary nodule; Z92.3 Personal history of irradiation; R41.82 Altered mental status, unspecified; I95.9 Hypotension, unspecified; I27.20 Pulmonary hypertension, unspecified; Z20.822 Contact with and (suspected) exposure to COVID-19; Z53.09 Procedure and treatment not carried out because of other contraindication; D64.9 Anemia, unspecified; E87.6 Hypokalemia

== ENCOUNTER → 2021-05-22 | Outpatient (CLI) | payer MEDICARE, OTHER ==
[~2021-05-22] MED LIST changes: +ATIV1TAB10 PO; +ATOR1TAB19 PO; +AUGM875T28 PO; +BACI1CAP PO; +BACITAB PO; +CEFD300C PO; +COLA100C5 PO; +D31000TA2 PO; +DIFL50TA PO; +DOXY-342 PO; +FLUC10TA PO; +FLUTISP; +IRBE150T7 PO; +IRON27TA2 PO; +IRON65TA2 PO; +LEVO750T14 PO; +LEXA1TAB PO; +MAGN400C PO; +MAGN400T2 PO; +MECL-86 PO; +MELA10TA6 PO; +MIDO10TA PO; +MIDO5TA PO; +MORP10SO2 PO; +NOXI1TAB PO; -NYST50SS SS; +NYST50SS SSP; +PRED10TA2 PO; +PRED20TA PO; +PREVAGEN PO; -PULM0.5S INH; +PULM0.5S NEB; +SENN-80 PO; +TROS60CA2 PO; +areds
== END ==
LOC: M WUC 14:41
PROVIDERS: ATTEND Internal Medicine Pulmonary Disease
DX: J44.9 Chronic obstructive pulmonary disease, unspecified (principal)

== ENCOUNTER 2021-06-20 16:44 | Inpatient (IN) | payer MEDICARE, OTHER ==
[~2021-06-20] VITALS: Ht 182.9 cm; Wt 62.9 kg
[~2021-06-20 16:44] MED LIST changes: -COLA100C5 PO; -D31000TA2 PO; -FLUC10TA PO; -MAGN400T2 PO; -MIDO10TA PO; -PREVAGEN PO
[2021-06-20 18:44] LABS: BASO % 0.3 % (0.0-1.0); HEMATOCRIT 33.2 % (42.0-52.0); HEMOGLOBIN 10.2 g/dl (13.5-17.5); LYMPH # 0.6 10^3/uL (1.5-5.0); LYMPH % 6.3 % (24.0-44.0); MEAN CORPUSCULAR HEMOGLOBIN 22.2 pg (27.0-33.0); MEAN CORPUSCULAR HGB CONC 30.7 g/dl (32.0-36.5); MEAN CORPUSCULAR VOLUME 72.2 fl (80.0-96.0); MONO # 0.5 10^3/uL (0.0-0.8); MONO % 5.3 % (2.0-8.0); NEUTROPHILS # 7.7 10^3/uL (1.5-8.5); NEUTROPHILS % 87.3 % (36.0-66.0); PLATELET COUNT, AUTOMATED 330 10^3/uL (150-450); WHITE BLOOD COUNT 8.8 10^3/uL (4.0-10.0)
[2021-06-20 19:06] LABS: ALBUMIN 2.4 GM/DL (3.2-5.2); BILIRUBIN,DIRECT 0.1 MG/DL (0.0-0.2); BILIRUBIN,TOTAL 0.3 MG/DL (0.2-1.0); THYROID STIMULATING HORMONE 0.82 uIU/ML (0.358-3.740); TOTAL PROTEIN 6.5 GM/DL (6.4-8.2)
[2021-06-20 19:11] LABS: RSV AMPLIFICATION NEGATIVE (NEGATIVE)
[2021-06-20] MEDS ORDERED: ISOVUE-370 76% 100ML VIAL As Ordered ONE (19:37)
--- NOTE | 2021-06-20 22:16 | REPVR ---
PROCEDURE INFORMATION: Exam: CT Chest With Contrast; Diagnostic Exam date and time: 06/20/2021 8:04 PM Age: 76 years old Clinical indication: Shortness of breath; Additional info: SOB; New left lung findings TECHNIQUE: Imaging protocol: Diagnostic computed tomography of the chest with contrast. 3D rendering (Not supervised by radiologist): MIP and/or 3D reconstructed images were created by the technologist. Radiation optimization: All CT scans at this facility use at least one of these dose optimization techniques: automated exposure control; mA and/or kV adjustment per patient size (includes targeted exams where dose is matched to clinical indication); or iterative reconstruction. Contrast material: ISOVUE 370; Contrast volume: 75 ml; Contrast route: INTRAVENOUS (IV); COMPARISON: CT Chest without contrast 04/28/2021 3:51 PM FINDINGS: Lungs: Advanced emphysema with extensive bullous changes throughout both lungs. Nonspecific interstitial fibrosis. Worsening bronchial wall thickening with bronchial plugging, greater in the right lower lobe. Numerous nodular subpleural opacities in the lung bases, slightly increased since the prior exam. Airspace consolidation and volume loss in the right middle lobe and lingula. Right lower lobe mass on the previous exam is now more irregular and spiculated. Other nodules in the lung bases are stable. Pleural spaces: Partially loculated left pleural effusion containing a small amount of pleural air is increased in size. Heart: Unremarkable. No cardiomegaly. No pericardial effusion. Aorta: Unremarkable. No aortic aneurysm. Lymph nodes: Unremarkable. No enlarged lymph nodes. Bones/joints: Skeletal degenerative changes are noted. Right shoulder arthroplasty. Left glenohumeral joint effusion. Soft tissues: Unremarkable. IMPRESSION: 1. Increasing size of loculated left pleural effusion. Possible empyema. 2. Persistent bronchial wall thickening with worsening bronchial plugging, worst in the right lower lobe. Increasing peribronchial opacities in the lung bases suggesting postobstructive pneumonia. 3. More irregular, spiculated appearance of oval mass in the right lower lobe. Other scattered pulmonary nodules appear similar to the prior exam. 4. Emphysema. Electronically signed by: Nirav Pop On 06/20/2021 22:15:46 PM
[2021-06-20] MEDS ORDERED: VANCOMYCIN HCL 1,500 MG in IV FLUID PLACE HOLDER 1 EA IV ONE (22:45)
[2021-06-20] MEDS ORDERED: MOM 30ML SUSPENSION UDC PO PRN (22:45)
[2021-06-20] MEDS ORDERED: MAALOX 30 ML SUSP *UDC PO PRN (22:45)
--- NOTE | 2021-06-20 22:49 | HPEPDOC ---
[facility] Medical History & Physical Date of Admission Jun 20, 2021 Date of Service: Jun 20, 2021 Primary Care Physician: Jr Deras Collins Attending Physician: OSMAN MARIO MD History and Physical TIME OF SERVICE: 1155pm CHIEF COMPLAINT: dyspnea HISTORY OF PRESENT ILLNESS: a 76 yr old gentleman was last admitted in April of this year for management of post-obstructive PNA w a parapneumonic effusion that was managed with IV Zozyn via placement of a pigtail catheter; p leural fluid cultures were negative. Karthikeyan Fernández & Heidi were consulted for co-management. The patient was sent home with Augmentin but continues to have dyspnea & a cough productive of brown sputum. Based on the findings of a chest xray that was ordered the patient was told to come to the ER for management of an empyema. The patient also c/o intermittent dizziness; his added that he has lost 22 lbs in the last month. 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 HOME MEDICATIONS: Please see below. PHYSICAL EXAMINATION: Vital Signs Date Time Temp Pulse Resp B/P (MAP) Pulse Ox O2 Delivery O2 Flow Rate FiO2 06/20/21 16:45 99.1 86 20 116/65 (82) 94 Nasal Cannula 2.0 GENERAL APPEARANCE: cachectic/ NAD HEENT: temporal wasting /MMM&P / NC in place CARDIOVASCULAR: RRR/NMRG LUNGS: his ribs are prominent/ he is not using accessory muscles/ he is coughing/ breath sounds are more prominent on the left lower morales/ there is dullness to percussion at the left posterior lower chest ABDOMEN: scaphoid / soft & NT w palpation MUSCULOSKELETAL: NCAT/ ROMIx 4 extremities INTEGUMENT: he is pale / he is not flushed or diaphoretic NEUROLOGICAL: his speech is not dysarthric PSYCHIATRIC: A&O / able to understand and follow all commands LABORATORY DATA: IMAGING: CT chest IMPRESSION: 1. Increasing size of loculated left pleural effusion. Possible empyema. 2. Persistent bronchial wall thickening with worsening bronchial plugging, worst in the right lower lobe. Increasing peribronchial opacities in the lung bases suggesting postobstructive pneumonia. 3. More irregular, spiculated appearance of oval mass in the right lower lobe. Other scattered pulmonary nodules appear similar to the prior exam. 4. Emphysema. MICROBIOLOGY: Respiratory panel is neg ASSESSMENT: is a 76 yr old w COPD, chronic O2 dependent respiratory failure 2L & DLP who is admitted for a left sided loculated pleural effusion and possible post-obstructive PNA. PLAN: 1 Loculated Pleural effusion Possibly 2/2 empyema vs malignant effusion Plan: admit to PCU / continuous pulse ox & supplemental O2/ switch to Zosyn and Levofloxacin for double pseudomonas coverage / f/u sputum culture blood cx, sputum cx, strep pneumo and legionella and add Vancomycin pending MRSA results / will ask the day time team to consult the [employer] precision devices inspector/tester to discuss whether the pt is a candidate for diagnostic thoracentesis +/- bronchoscopy , ID for guidance on abx & IR for pigtail placement 2 Post-obstructive PNA vs malignancy Plan: f/u ABG / abx as above/ acapella / aspiration precautions 3 Microcytic Hypochromic anemia There are plans for EGD/C-scope once he is cleared for the procedure by Plan: trend Hg / hold oral iron until infection is r/o 4 Oral curtis w possible Esophageal Curtis Plan: c/w Nystatin oral suspension & Fluconazole / EDG in the near future 5 Transaminitis He denies having abdominal pain Plan: trend LFTs / can f/u w PCP for a complete work-up on an outpatient basis 6 Chronic COPD / chronic O2 dependent respiratory failure 2L He doesnt appear to be in an exacerbation Plan: resume home meds (Pulmicort, Symbicourt, Combivent Respimat, Levalbuterol & prednisone) / c/w supplemental O2 7 Orthostatic Hypotension Plan: c/w midodrine 8. Sarcopenia BMI 18.1 Plan: f/u pre-albumin / the day time team may consider placing a home improvement installer consult to discuss improving his protein intake DVT px w Lovenox after pigtail placement (Angela Prediction Score to determine the in-patient risk of VTE & need for anticoagulation is 5. Individuals with a Angela Score <4 are low risk of VTE and thromboprophylaxis should be considered on a [id number] basis while individuals with a Angela score >4 are high risk for VTE and will likely benefit from thromboprophylaxis unless the patient has major contraindication such as major bleeding or thrombocytopenia). Dispo: home after at least 2 midnights stay His LACE Index Score is 14 points which indicates that he is at high risk for re-admission or within the next 30 days. A PFS consult has been placed for discharge planning Home Medications Scheduled Atorvastatin Calcium (Lipitor) 10 Mg Tab, 10 MG PO QHS Azithromycin (Azithromycin) 250 Mg Tab, 250 MG PO DAILY Budesonide (Pulmicort) 0.5 Mg/2 Ml [place], 0.5 MG INH BID Budesonide/Formoterol (Symbicort 160-4.5 Mcg Inhaler) 60 Puff/Inhaler Aers, 2 PUFF INH BID Cholecalciferol (Vitamin D3) (Vitamin D3) 1,000 Unit Tablet, 1,000 UNITS PO QHS Docusate Sodium (Colace) 100 Mg Capsule, 100 MG PO QHS Ferrous Sulfate (Iron) 325 Mg Tablet, 325 MG PO DAILY Fluconazole (Diflucan) Unknown Strength Tablet, Unknown Dose PO DAILY for yeast infection Guaifenesin (Mucinex) 1,200 Mg Tab.er.12h, 1,200 MG PO BID Levalbuterol HCl (Levalbuterol HCl) 1.25 Mg/3 Ml Neb, 1.25 MG INH QID Magnesium Oxide (Magnesium Oxide) 400 Mg Tablet, 400 MG PO QHS Midodrine HCl (Midodrine HCl) 10 Mg Tablet, 10 MG PO TID 0800, 1200, 1600 Prednisone (Prednisone) 20 Mg Tablet, 20 MG PO Q2D ALTERNATE WITH 10MG TAB Prednisone (Prednisone) 20 Mg Tablet, 10 MG PO Q2D ALTERNATE WITH 20MG TAB Solifenacin Succinate (Vesicare) 10 Mg Tablet, 10 MG PO DAILY Umeclidinium [place] (Incruse Ellipta) 62.5 Mcg Blst.w.dev, 1 PUFF INH DAILY Vit A/Vit C/Vit E/Zinc/Copper (Preservision Areds Softgel) 1 Each Capsule, 2 CAP PO DAILY Zinc (Zinc) 50 Mg Tablet, 50 MG PO DAILY [Prevagen] , 1 CAP PO DAILY Scheduled PRN Fluticasone Propionate (Fluticasone Propionate) 16 Gm [place].susp, 1 SPRAY NA BID PRN for NASAL CONGESTION Ipratropium/Albuterol Sulfate (Combivent Respimat 20-100 Mcg) 1 Aer Aer, 1 PUFF INH QID PRN for SHORTNESS OF BREATH Nystatin (Nystatin Oral Susp) 100,000 Unit/1 Ml Oral.susp, 5 ML SSP BID PRN for THRUSH Oxycodone HCl/Acetaminophen (Oxycodone-Acetaminophen 5-325) 1 Each Tablet, 1 TAB PO Q8H PRN for PAIN Allergies Coded Allergies: No Known Allergies (Unverified , 04/03/21) OSMAN MARIO MD Jun 20, 2021 22:49
[2021-06-20] MEDS ORDERED: MIDO10TA PO (23:11)
[2021-06-20] MEDS ORDERED: COLA100C5 PO (23:16)
[2021-06-20] MEDS ORDERED: PREVAGEN PO (23:16)
[2021-06-20] MEDS ORDERED: D31000TA2 PO (23:16)
[2021-06-20] MEDS ORDERED: MAGN400T2 PO (23:16)
[2021-06-20] MEDS ORDERED: HOME MED LIST COMPLETE! XX SCH (23:25)
[2021-06-20 23:27] LABS: ABG BASE EXCESS 3.6 (-2.0-2.0); ABG HCO3 27.5 MEQ/L (22.0-26.0); ABG O2 SATURATION 98.3 % (95.0-99.0); ABG PARTIAL PRESSURE CO2 38.5 mmHg (35.0-45.0); ABG PARTIAL PRESSURE O2 107.9 mmHg (75.0-100.0); ABG STANDARD HCO3 27.7 MEQ/L (22.0-26.0); ABG TOTAL CO2 28.6 MEQ/L (23.0-31.0); ABG pH (ARTERIAL) 7.471 UNITS (7.350-7.450)
[2021-06-20] MEDS: PIPERACILLIN/TAZOBACTAM SOD 3.375 GM in D5W MINI-BAG PLUS 100 ML IV SCH (23:45)
[2021-06-21] VITALS (14 sets, daily range): BP systolic 107–187; BP diastolic 58–91; O2SAT 88–94
[2021-06-21] MEDS ORDERED: VANCOMYCIN HCL 750 MG, VIAL MATE ADAPTER 1 EACH in NS 250 ML IV ONE (01:00)
[2021-06-21] MEDS ORDERED: COMBIVENT RESPIMAT 100-20MCG INHALER 4GM INH PRN (01:05)
[2021-06-21] MEDS: LEVALBUTEROL 1.25 MG/0.5 ML CONCENTRATE NEB INH SCH ×5 (01:05→20:00)
[2021-06-21] MEDS ORDERED: PERCOCET 5MG/325MG TAB PO PRN (01:05)
[2021-06-21] MEDS ORDERED: FLUTICASONE PROP 0.05% NASAL SPRAY 16 GM (FLONASE) PRN (01:05)
[2021-06-21] MEDS: SYMBICORT 160/4.5MCG INHALER 6GM INH SCH ×3 (01:05→20:30)
[2021-06-21] MEDS: BUDESONIDE 0.5 MG/2 ML INHALATION SUSPENSION INH SCH ×3 (01:05→20:00)
[2021-06-21] MEDS ORDERED: FLUC10TA PO (01:07)
[2021-06-21] MEDS ORDERED: VANCOMYCIN HCL 750 MG, VIAL MATE ADAPTER 1 EACH in NS 250 ML IV SCH (02:00)
[2021-06-21 02:19] LABS: INR 1.26; PROTHROMBIN TIME 16.2 SECONDS (12.7-14.5)
[2021-06-21 02:20] LABS: PARTIAL THROMBOPLASTIN TIME 36.2 SECONDS (25.9-37.0)
[2021-06-21] MEDS: guaiFENesin ER 600 MG TAB PO SCH ×3 (02:27→20:45)
[2021-06-21] MEDS: MAGNESIUM OXIDE 400MG TAB (MAG-OX) PO SCH ×2 (02:27→20:46)
[2021-06-21] MEDS: MIDODRINE 5 MG TAB PO SCH ×4 (02:28→15:29)
[2021-06-21] MEDS: ATORVASTATIN 10 MG TAB PO SCH ×2 (02:28→20:45)
[2021-06-21] MEDS: DOCUSATE SODIUM 100MG CAPSULE PO SCH ×2 (02:30→20:45)
[2021-06-21] MEDS: ACETAMINOPHEN TAB 650MG DOSE (2X325MG) PO PRN ×2 (04:06→20:45)
[2021-06-21] MEDS ORDERED: NYSTATIN 500,000 U/5 ML SUSP UDC SSP PRN (05:20)
[2021-06-21 05:39] LABS: HEMATOCRIT 33.1 % (42.0-52.0); HEMOGLOBIN 10.1 g/dl (13.5-17.5); MEAN CORPUSCULAR HGB CONC 30.5 g/dl (32.0-36.5); PLATELET COUNT, AUTOMATED 296 10^3/uL (150-450); WHITE BLOOD COUNT 10.2 10^3/uL (4.0-10.0)
[2021-06-21] MEDS: LevoFLOXacin IV 750 MG in IV 1 EA IV SCH (05:43)
[2021-06-21] MEDS: PIPERACILLIN/TAZOBACTAM SOD 3.375 GM in D5W MINI-BAG PLUS 100 ML IV SCH (05:44)
[2021-06-21 06:01] LABS: BLOOD UREA NITROGEN 22 MG/DL (7-18); CALCIUM LEVEL 7.9 MG/DL (8.8-10.2); CARBON DIOXIDE LEVEL 25 MEQ/L (21-32); CHLORIDE LEVEL 105 MEQ/L (98-107); CREATININE FOR GFR 0.39 MG/DL (0.70-1.30); GLOMERULAR FILTRATION RATE > 60.0 (>42); GLUCOSE, FASTING 82 MG/DL (70-100); POTASSIUM SERUM 3.8 MEQ/L (3.5-5.1); SODIUM LEVEL 136 MEQ/L (136-145)
--- NOTE | 2021-06-21 06:38 | ECGEPIP ---
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
[2021-06-21] MEDS: SOLIFENACIN 5 MG TAB PO SCH (08:40)
[2021-06-21] MEDS: FLUCONAZOLE 100 MG TAB PO SCH (08:41)
[2021-06-21] MEDS: OCUVITE 1 TAB PO SCH (08:41)
[2021-06-21] MEDS ORDERED: predniSONE 20 MG TAB PO SCH (09:00)
--- NOTE | 2021-06-21 12:40 | CR.PDOC ---
General Date of Consultation: Jun 21, 2021 Referring Provider: MARIBEL VILLAFUERTE MD Primary Care Physician: Jr Deras Collins Attending Physician: MARIBEL VILLAFUERTE MD Consultation REASON FOR CONSULTATION/CHIEF COMPLAINT: Cough and shortness of breath. HISTORY OF PRESENT ILLNESS: This is a 76-year-old gentleman with past medical history of severe emphysema and COPD, chronic hypoxic respiratory failure secondary to COPD on 2 L oxygen at home, MARGARETTE noncompliant with CPAP therapy, h istory of hypertension, prostate cancer in remission, diverticular disease presented to the hospital with shortness of breath and cough. Patient was recently admitted back in April 2021 with community-acquired pneumonia and parapneumonic effusion that was managed with IV Zosyn and pigtail catheter drainage. Pleural fluid culture was negative and patient was sent home with Augmentin. Since he has completed his course of antibiotic, he has felt significantly better in terms of his shortness of breath and cough. However he still has a baseline shortness of breath cough. He was followed by Dr. Thacker in the clinic and chest x-ray was ordered for resolution of pneumonia. Chest x-ray did show evidence of left-sided pleural effusion which was concerning for empyema. Therefore his primary doctor, Dr. Shook called the patient to be admitted to the hospital. Upon admission to the hospital, patient's vital signs were all stable. He has no evidence of leukocytosis. Repeat CT scan of the chest shows evidence of bilateral lower lobe infiltrate with a very well organized left sided hydropneumothorax. Pulmonary was consulted for further recommendation. ALLERGIES: Please see below. HOME MEDICATIONS: Please see below. 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 HEENT: Denies of sore throat or postnasal drip. CARDIOVASCULAR: Denies of chest pain or palpitation, orthopnea, PND. RESPIRATORY: Admits to shortness of breath and cough but not worsening from prior. GENITOURINARY: Denies of dysuria. MUSCULOSKELETAL: Denies of arthralgia or myalgia. GASTROINTESTINAL: Denies of nausea, vomiting, hematemesis, diarrhea. SKIN: Denies of rash. NEUROLOGICAL: Denies of any focal weakness or numbness. PSYCHIATRIC: Denies of depression. ENDOCRINE: Denies of temperature sensitivity. HEMATOLOGIC/LYMPHATIC: Denies of bleeding. ALLERGIC/IMMUNOLOGIC: Denies of allergy. PHYSICAL EXAMINATION: VITAL SIGNS: Please see below. GENERAL APPEARANCE: Patient is alert and oriented x3, patient is not in any acute distress and he is speaking full sentences. HEENT: There is no evidence of JVD or cervical adenopathy. RESPIRATORY: Patient has bibasilar coarse crackle with no evidence of wheezing. He has a barrel-shaped chest. CARDIOVASCULAR: Regular S1-S2 with no evidence of murmur. ABDOMEN: Soft, nontender, hypoactive bowel sounds. EXTREMITIES: No evidence of pedal edema. NEUROLOGICAL: Gross neuro examination is intact. PSYCHIATRIC: Alert and oriented. LABORATORY DATA: Please see below. ASSESSMENT/PLAN: This is a 76-year-old gentleman with past medical history of severe emphysema and COPD, chronic hypoxic respiratory failure secondary to COPD on 2 L oxygen at home, MARGARETTE noncompliant with CPAP therapy, history of hypertension, prostate cancer in remission, diverticular disease presented to the hospital with shortness of breath and cough. 1. Community-acquired pneumonia. 2. Left-sided pleural effusion. 3. History of severe emphysema and COPD 4. Chronic hypoxic respiratory failure on 2 L oxygen Plan: -Patient has no evidence of active new infection. His vital signs are stable and there is no evidence of leukocytosis. The current CT scan of the chest was compared to the CT scan done back in April 2021. Bibasilar infiltrates have significantly improved as evident by improvement in his clinical symptoms. However there is some residual infiltrates with air bronchograms that indicate ongoing pneumonia. Therefore I recommend giving him a short course of antibiotic for 7 to 10 days. With regarding to left-sided pleural effusion; I independently reviewed the CT scan of the chest. The fluids appears to be hydropneumothorax with it very thick parietal and visceral pleura surrounding it, which suggest chronic pleural effusion. It was visualized under live ultrasound images and did not show any evidence of loculation or complex fluid. The maximum fluid depth is only 2.5 cm. Therefore I do not think it is safe to perform thoracentesis or chest tube drainage. I recommend to finish a short course of antibiotic followed by repeat imaging in about 4 to 6 weeks. Vital Signs/I&O Vital Signs Date Time Temp Pulse Resp B/P (MAP) Pulse Ox O2 Delivery O2 Flow Rate FiO2 06/21/21 10:00 92 Room Air 06/21/21 08:00 97.3 77 20 107/58 (74) 06/21/21 04:00 2.0 I&O- Last 24 Hours up to 6 AM 06/21/21 06:00 Intake Total 100 ml Balance 100 ml Laboratory Data Labs 24H Laboratory Tests 2 06/20/21 17:58: Immature Granulocyte % (Auto) 0.8, Neutrophils (%) (Auto) 87.3H, Lymphocytes (%) (Auto) 6.3L, Monocytes (%) (Auto) 5.3, Eosinophils (%) (Auto) 0.0, Basophils (%) (Auto) 0.3, Neutrophils # (Auto) 7.7, Lymphocytes # (Auto) 0.6L, Monocytes # (Auto) 0.5, Eosinophils # (Auto) 0.0, Basophils # (Auto) 0.0, Nucleated Red Blood Cells % (auto) 0.0, Lactic Acid Level 1.1, Total Bilirubin 0.3, Direct Bilirubin 0.1, Aspartate Amino Transf (AST/SGOT) 115H, Alanine Aminotransferase (ALT/SGPT) 244H, Alkaline Phosphatase 143H, LH-Dlh-Z-Type Natriuretic Peptide 698H, Total Protein 6.5, Albumin 2.4L, Albumin/Globulin Ratio 0.6, Thyroid Stimulating Hormone (TSH) 0.820, Coronavirus (COVID-19)(PCR) NEGATIVE, Influenza Type A (RT-PCR) NEGATIVE, Influenza Type B (RT-PCR) NEGATIVE, Respiratory Syn cytial Virus (PCR) NEGATIVE 06/20/21 18:15: POC Glucose (Misc Panel) 141H, POC Sodium (Misc Panel) 136, POC Potassium (Misc Panel) 4.3, POC Chloride (Misc Panel) 99, POC Total CO2 (Misc Panel) 24.0, POC Blood Urea Nitrogen (Misc Panel 28H, POC Ionized Calcium (Misc Panel) 4.7, POC Creatinine (Misc Panel) 0.4L, POC Hematocrit (Misc Panel) 33.0L 06/20/21 23:28: Blood Gas Bicarbonate Standard 27.7H, Arterial Blood pH 7.471H, Arterial Blood Partial Pressure CO2 38.5, Arterial Blood Partial Pressure O2 107.9H, Arterial Blood Total CO2 28.6, Arterial Blood HCO3 27.5H, Arterial Blood Base Excess 3.6H, Arterial Blood Oxygen Saturation 98.3 06/21/21 02:00: Lactic Acid Level 3.0*H, Prothrombin Time 16.2H, Prothromb Time International Ratio 1.26, Activated Partial Thromboplast Time 36.2 06/21/21 05:17: Nucleated Red Blood Cells % (auto) 0.0, Anion Gap 6L, Glomerular Filtration Rate > 60.0, Calcium Level 7.9L 06/21/21 06:32: Lactic Acid Level 1.8, Prealbumin 6.8L CBC/BMP Laboratory Tests 06/20/21 17:58 06/21/21 05:17 Microbiology Microbiology 06/21/21 Gram Stain, Received Pending 06/21/21 Sputum Culture, Received Pending 06/20/21 Blood Culture, Received Pending 06/20/21 Blood Culture, Received Pending Allergies Coded Allergies: No Known Allergies (Unverified , 04/03/21) Home Medications Scheduled Atorvastatin Calcium (Lipitor) 10 Mg Tab, 10 MG PO QHS, (Reported) Azithromycin (Azithromycin) 250 Mg Tab, 250 MG PO DAILY, (Reported) Budesonide (Pulmicort) 0.5 Mg/2 Ml [place], 0.5 MG INH BID, (Reported) Budesonide/Formoterol (Symbicort 160-4.5 Mcg Inhaler) 60 Puff/Inhaler Aers, 2 PUFF INH BID, (Reported) Cholecalciferol (Vitamin D3) (Vitamin D3) 1,000 Unit Tablet, 1,000 UNITS PO QHS, (Reported) Docusate Sodium (Colace) 100 Mg Capsule, 100 MG PO QHS, (Reported) Ferrous Sulfate (Iron) 325 Mg Tablet, 325 MG PO DAILY, (Reported) Fluconazole (Diflucan) Unknown Strength Tablet, Unknown Dose PO DAILY for yeast infection for 7 Days, #7 (Reported) Guaifenesin (Mucinex) 1,200 Mg Tab.er.12h, 1,200 MG PO BID, (Reported) Levalbuterol HCl (Levalbuterol HCl) 1.25 Mg/3 Ml Neb, 1.25 MG INH QID, (Reported) Magnesium Oxide (Magnesium Oxide) 400 Mg Tablet, 400 MG PO QHS, (Reported) Midodrine HCl (Midodrine HCl) 10 Mg Tablet, 10 MG PO TID, (Reported) 0800, 1200, 1600 Prednisone (Prednisone) 20 Mg Tablet, 20 MG PO Q2D, (Reported) ALTERNATE WITH 10MG TAB Prednisone (Prednisone) 20 Mg Tablet, 10 MG PO Q2D, (Reported) ALTERNATE WITH 20MG TAB Solifenacin Succinate (Vesicare) 10 Mg Tablet, 10 MG PO DAILY, (Reported) Umeclidinium [place] (Incruse Ellipta) 62.5 Mcg Blst.w.dev, 1 PUFF INH DAILY, (Reported) Vit A/Vit C/Vit E/Zinc/Copper (Preservision Areds Softgel) 1 Each Capsule, 2 CAP PO DAILY, (Reported) Zinc (Zinc) 50 Mg Tablet, 50 MG PO DAILY, (Reported) [Prevagen] , 1 CAP PO DAILY, (Reported) Scheduled PRN Fluticasone Propionate (Fluticasone Propionate) 16 Gm [place].susp, 1 SPRAY NA BID PRN for NASAL CONGESTION, (Reported) Ipratropium/Albuterol Sulfate (Combivent Respimat 20-100 Mcg) 1 Aer Aer, 1 PUFF INH QID PRN for SHORTNESS OF BREATH, (Reported) Nystatin (Nystatin Oral Susp) 100,000 Unit/1 Ml Oral.susp, 5 ML SSP BID PRN for THRUSH, (Reported) Oxycodone HCl/Acetaminophen (Oxycodone-Acetaminophen 5-325) 1 Each Tablet, 1 TAB PO Q8H PRN for PAIN, (Reported) NICOL FREGOSO MD Jun 21, 2021 12:40
--- NOTE | 2021-06-21 13:06 | IPNPDOC ---
Text Note Date of Service The patient was seen on 06/21/21. NOTE Subjective: Patient is a 76 year old male with a PMHx of COPD, Chronic O2 dependent respiratory failure (NC at 2L), MARGARETTE (unable to tolerate CPAP), HTN (no longer on meds), DLP, Prostate cancer i(s/p radiation; reported in remission), Diverticulosis, who presented to the ER from his PCP's office for an abnormal CXR. Patient was hospitalized [facility] from 04/29 to 05/04. During the hospital course patient was found to have left-sided pneumonia with pleural effusion. Patient received IV antibiotics had drainage of his left-sided effusion with a Pleurx catheter. Patient was ultimately discharged home with oral antibiotics, ID and pulmonology were on consultation. Patient was admitted to the hospital service for further evaluation and treatment for suspected worsening pneumonia/pleural effusion. Patient was seen and examined at the bedside. Patient was that in general he feels relatively fine report shortness of breath with exertion. Denies any si gnificant cough, nausea, vomiting, abdominal pain, diarrhea, or urinary discomfort. Objective: Vitals (See below) General: Lying in bed, appears comfortable, AAOx3 HEENT: NC, AT CVS: +S1S2 Lungs: Fair air entry b/l, no significant wheezing / rales / rhonchi Abdomen: Soft, ND, NT Extremities: - Edema, - Calf tenderness Imaging: CT Chest 06/20: 1. Increasing size of loculated left pleural effusion. Possible empyema. 2. Persistent bronchial wall thickening with worsening bronchial plugging, worst in the right lower lobe. Increasing peribronchial opacities in the lung bases suggesting postobstructive pneumonia. 3. More irregular, spiculated appearance of oval mass in the right lower lobe. Other scattered pulmonary nodules appear similar to the prior exam. 4. Emphysema. Assessment and plan: Effusion - likely 2/2 organized / chronic effusion, less likely 2/2 loculated pleural effusion - Clinically patient reports some shortness breath with exertion that has been ongoing since discharge - Hemodynamically stable and afebrile - No significant leukocytosis - Imaging noted above - Blood cultures 06/20: Pending - Sputum cultures 06/20: Pending - Pro-calcitonin pending - c/w Levofloxacin; Will DC Vancomycin and Zosyn - Pulmonology on consultation; appreciate their input Pneumonia - Imaging has shown improvement - Continue with antibiotics as stated above 2Post-obstructive PNA vs malignancy Plan: f/u ABG / abx as above/ acapella / aspiration precautions Microcytic Hypochromic anemia - Plans for EGD and colonoscopy to be completed as an outpatient once pulmonology has cleared as an outpatient Oral nadia w possible Esophageal Nadia - c/w Nystatin oral suspension & Fluconazole - Will have outpatient follow-up with primary care provider for possible EGD referral Transaminitis - No abdominal discomfort, nausea, vomiting - Physical without any abdominal tenderness - Will check hepatitis profile / liver US - Will have outpatient follow-up with primary care provider Chronic COPD / Chronic O2 dependent respiratory failure - No evidence of exacerbation - At baseline patient uses 2 L nasal cannula oxygen - c/w inhaled therapy as ordered - c/w chronic prednisone Orthostatic Hypotension - c/w midodrine Sarcopenia - BMI 18.1 - Complicating medical care DVT prophylaxis - c/w Lovenox Disposition: - Anticipate DC home tomorrow VS,Fishbone, I+O VS, Fishbone, I+O Laboratory Tests 06/20/21 17:58 06/21/21 05:17 Vital Signs Date Time Temp Pulse Resp B/P (MAP) Pulse Ox O2 Delivery O2 Flow Rate FiO2 06/21/21 12:00 89 Room Air 06/21/21 08:00 97.3 77 20 107/58 (74) 06/21/21 04:00 2.0 I&O- Last 24 Hours up to 6 AM 06/21/21 06:00 Intake Total 100 ml Balance 100 ml MARIBEL VILLAFUERTE MD Jun 21, 2021 13:06
[2021-06-21 15:28] LABS: HEPATITIS A ANTIBODY IGM NEGATIVE (NEGATIVE); HEPATITIS B CORE ANTIBODY IGM NEGATIVE (NEGATIVE); HEPATITIS B SURFACE ANTIGEN NEGATIVE (NEGATIVE); HEPATITIS C VIRUS ABY INDEX 0.1 INDEX (<0.8)
[2021-06-21] MEDS ORDERED: RAMELTEON 8 MG TAB (ROZEREM) PO PRN (20:35)
[2021-06-21] MEDS ORDERED: hydrOXYzine 25 MG TAB PO ONE (20:40)
[2021-06-21] MEDS ORDERED: ENOXAPARIN 40MG/0.4ML SYRINGE (J1650 PER 10MG) SC SCH (21:00)
[2021-06-21 21:10] LABS: ABG BASE EXCESS -0.5 (-2.0-2.0); ABG HCO3 22.4 MEQ/L (22.0-26.0); ABG PARTIAL PRESSURE CO2 31.3 mmHg (35.0-45.0); ABG PARTIAL PRESSURE O2 64.2 mmHg (75.0-100.0); ABG TOTAL CO2 23.4 MEQ/L (23.0-31.0); ABG pH (ARTERIAL) 7.473 UNITS (7.350-7.450)
[2021-06-21] MEDS ORDERED: OLANZapine INTRAMUSCULAR 10MG VIAL IM PRN (21:50)
[2021-06-22] VITALS: BP 139/63
[2021-06-22 04:00] VITALS: BP 123/63
[2021-06-22 04:21] LABS: BASO % 0.3 % (0.0-1.0); EOS % 0.1 % (0.0-3.0); HEMATOCRIT 32.9 % (42.0-52.0); HEMOGLOBIN 10.2 g/dl (13.5-17.5); LYMPH % 12.3 % (24.0-44.0); MEAN CORPUSCULAR HEMOGLOBIN 22.2 pg (27.0-33.0); MEAN CORPUSCULAR VOLUME 71.5 fl (80.0-96.0); MONO # 0.9 10^3/uL (0.0-0.8); MONO % 11.2 % (2.0-8.0); NEUTROPHILS # 5.9 10^3/uL (1.5-8.5); NEUTROPHILS % 75.5 % (36.0-66.0); PLATELET COUNT, AUTOMATED 268 10^3/uL (150-450); WHITE BLOOD COUNT 7.8 10^3/uL (4.0-10.0)
[2021-06-22] MEDS: LevoFLOXacin IV 750 MG in IV 1 EA IV SCH (04:31)
[2021-06-22 04:50] LABS: ALBUMIN 2.2 GM/DL (3.2-5.2); ALT/SGPT 199 U/L (12-78); BILIRUBIN,TOTAL 0.3 MG/DL (0.2-1.0); BLOOD UREA NITROGEN 15 MG/DL (7-18); CALCIUM LEVEL 8.5 MG/DL (8.8-10.2); CARBON DIOXIDE LEVEL 26 MEQ/L (21-32); CHLORIDE LEVEL 107 MEQ/L (98-107); GLOMERULAR FILTRATION RATE > 60.0 (>42); GLUCOSE, FASTING 76 MG/DL (70-100); POTASSIUM SERUM 3.9 MEQ/L (3.5-5.1); SODIUM LEVEL 141 MEQ/L (136-145); TOTAL PROTEIN 5.8 GM/DL (6.4-8.2)
[2021-06-22 07:00] VITALS: O2SAT 97
[2021-06-22] MEDS: LEVALBUTEROL 1.25 MG/0.5 ML CONCENTRATE NEB INH SCH ×2 (07:21→10:49)
[2021-06-22] MEDS: BUDESONIDE 0.5 MG/2 ML INHALATION SUSPENSION INH SCH (07:21)
[2021-06-22] MEDS: SYMBICORT 160/4.5MCG INHALER 6GM INH SCH (07:21)
[2021-06-22 08:00] VITALS: BP 104/58
[2021-06-22] MEDS: OCUVITE 1 TAB PO SCH (08:45)
[2021-06-22] MEDS: SOLIFENACIN 5 MG TAB PO SCH (08:45)
[2021-06-22] MEDS: guaiFENesin ER 600 MG TAB PO SCH (08:45)
[2021-06-22] MEDS: MIDODRINE 5 MG TAB PO SCH ×2 (08:45→12:03)
[2021-06-22] MEDS: FLUCONAZOLE 100 MG TAB PO SCH (08:46)
--- NOTE | 2021-06-22 08:49 | REPVR ---
PROCEDURE INFORMATION: Exam: US Abdomen, Limited; Right Upper Quadrant Exam date and time: 06/22/2021 6:37 AM Age: 76 years old Clinical indication: Abnormal findings; Abnormal lab test; Abnormal function test of other organs/systems; Additional info: Transaminitis TECHNIQUE: Imaging protocol: US abdomen. Real time ultrasound with image documentation. Limited exam focused on the right upper quadrant. COMPARISON: None provided. FINDINGS: Liver: The liver is homogeneous in echotexture. No demonstrated mass or intrahepatic biliary ductal dilatation. Gallbladder: The gallbladder contains a 4 mm nonshadowing, apparently immobile echogenic focus which may represent a polyp. Its wall is not significantly thickened and there is no significant pericholecystic fluid. Sonographic Hare sign is reportedly negative. Common bile duct: The common bile duct is normal in size for a patient of this age at 4.3 mm. Pancreas: The pancreas is largely obscured by overlying bowel gas. Right kidney: The right kidney measures 10.8 x 4.9 x 5.6 cm. It contains a 1.8 x 1.9 x 2.1 cm cyst. No hydronephrosis or demonstrated stone or mass. IMPRESSION: 1. Unremarkable sonographic appearance of the liver. 2. Appearance of a 4 mm gallbladder polyp. Electronically signed by: Willian Maxwell On 06/22/2021 08:49:07 AM
[2021-06-22 09:00] VITALS: O2SAT 93
[2021-06-22] MEDS ORDERED: predniSONE 20 MG TAB PO SCH (09:00)
[2021-06-22 10:00] VITALS: O2SAT 95
[2021-06-22] MEDS ORDERED: LEVO750T14 PO (10:12)
--- NOTE | 2021-06-22 11:26 | DS.PDOC ---
Discharge Summary General Date of Admission Jun 20, 2021 at 22:41 Date of Discharge 06/22/2021 Discharge Summary PROCEDURES PERFORMED DURING STAY: [None]. 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 HISTORY OF PRESENT ILLNESS: Patient is a 76 year old male with a PMHx of COPD, Chronic O2 dependent respiratory failure (NC at 2L), MARGARETTE (unable to tolerate CPAP), HTN (no longer on meds), DLP, Prostate cancer i(s/p radiation; reported in remission), Diverticulosis, who presented to the ER from his PCP's office for an abnormal CXR. Patient was hospitalized [facility] from 04/29 to 05/04. During the hospital course patient was found to have left-sided pneumonia with pleural effusion. Patient received IV antibiotics had drainage of his left-sided effusion with a Pleurx catheter. Patient was ultimately discharged home with oral antibiotics, ID and pulmonology were on consultation. Patient was admitted to the hospital service for further evaluation and seth tment for suspected worsening pneumonia/pleural effusion. Patient was seen and examined at the bedside. Patient is currently reporting that he does not experiencing chest pain, any significant cough or palpitations. No nausea, vomiting, abdominal pain or diarrhea overnight. Patient was reported to have confusion this morning. He is oriented to person, place, time and knows the president is. Family has reported that patient does become delirious when he is in the hospital and this has happened in the past. HOSPITAL COURSE: Effusion - likely 2/2 organized / chronic effusion, unlikely 2/2 loculated pleural effusion - Patient does not express any significant cough, chest pain or palpitations - he has remained hemodynamically stable and afebrile - No significant leukocytosis - Imaging noted above - Blood cultures 06/20: 24 hours negative - Sputum cultures 06/20: Pending - Pro-calcitonin 0.17 - c/w Levofloxacin; s/p Vancomycin and Zosyn (Antibiotic day #2) - Pulmonology on consultation; appreciate their input - Will have outpatient follow-up with primary care provider and pulmonology [facility] the next 7 days Pneumonia - Imaging has shown improvement - c/w antibiotics as stated above Microcytic Hypochromic anemia - Plans for EGD and colonoscopy to be completed as an outpatient once pu lmonology has cleared as an outpatient Oral curtis w possible Esophageal Curtis - c/w Nystatin oral suspension & Fluconazole - Will have outpatient follow-up with primary care provider for possible EGD referral Transaminitis - Remains asymptomatic; no complains of abdominal pain, nausea, vomiting - No abdominal tenderness - Hepatitis profile negative - Imaging noted below - Will DC Atorvastatin - Will have outpatient follow-up with primary care provider Chronic COPD / Chronic O2 dependent respiratory failure - No evidence of exacerbation - At baseline patient uses 2 L nasal cannula oxygen - c/w inhaled therapy as ordered - c/w chronic prednisone Orthostatic Hypotension - c/w midodrine Sarcopenia - BMI 18.1 - Complicating medical care DVT prophylaxis - c/w Lovenox DISCHARGE MEDICATIONS: Please see below. ALLERGIES: Please see below. PHYSICAL EXAMINATION ON DISCHARGE: Vitals (See below) General: Lying in bed, is not in any acute distress, comfortable, AAOx4 HEENT: Atraumatic and normocephalic CVS: +S1S2 Lungs: There appears to be fair air entry bilaterally without any evidence of wheezing, crackles or rhonchi Abdomen: Soft, nondistended, without tenderness Extremities: No evidence of edema LABORATORY DATA: Please see below. IMAGING: CT Chest 06/20: 1. Increasing size of loculated left pleural effusion. Possible empyema. 2. Persistent bronchial wall thickening with worsening bronchial plugging, worst in the right lower lobe. Increasing peribronchial opacities in the lung bases suggesting postobstructive pneumonia. 3. More irregular, spiculated appearance of oval mass in the right lower lobe. Other scattered pulmonary nodules appear similar to the prior exam. 4. Emphysema. Liver US 06/22: 1. Unremarkable sonographic appearance of the liver. 2. Appearance of a 4 mm gallbladder polyp. ACTIVITY: [As tolerated]. DISCHARGE PLAN: Follow-up with primary care provider and pulmonology within next 7 days Remain compliant with her medications Return to ER if you experience any problems. DISPOSITION: Home with services DISCHARGE CONDITION: [Stable]. TIME SPENT ON DISCHARGE: 35 minutes. Vital Signs/I&Os Vital Signs Date Time Temp Pulse Resp B/P (MAP) Pulse Ox O2 Delivery O2 Flow Rate FiO2 06/22/21 10:00 95 Nasal Cannula 2.0 06/22/21 08:00 98.7 86 22 104/58 (73) I&O- Last 24 Hours up to 6 AM 06/22/21 06:00 Intake Total 480 ml Output Total 200 ml Balance 280 ml Laboratory Data Labs 24H Laboratory Tests 2 06/21/21 13:13: Hepatitis A IgM Antibody NEGATIVE, Hepatitis B Surface Antigen NEGATIVE, Hepatitis B Core IgM Antibody NEGATIVE, Hepatitis C Antibody Index 0.1 06/21/21 21:00: Blood Gas Bicarbonate Standard 24.0, Arterial Blood pH 7.473H, Arterial Blood Partial Pressure CO2 31.3L, Arterial Blood Partial Pressure O2 64.2L, Arterial Blood Total CO2 23.4, Arterial Blood HCO3 22.4, Arterial Blood Base Excess -0.5, Arterial Blood Oxygen Saturation 93.0L 06/22/21 04:02: Immature Granulocyte % (Auto) 0.6, Neutrophils (%) (Auto) 75.5H, Lymphocytes (%) (Auto) 12.3L, Monocytes (%) (Auto) 11.2H, Eosinophils (%) (Auto) 0.1, Basophils (%) (Auto) 0.3, Neutrophils # (Auto) 5.9, Lymphocytes # (Auto) 1.0L, Monocytes # (Auto) 0.9H, Eosinophils # (Auto) 0.0, Basophils # (Auto) 0.0, Nucleated Red Blood Cells % (auto) 0.0, Anion Gap 8, Glomerular Filtration Rate > 60.0, Calcium Level 8.5L, Total Bilirubin 0.3, Aspartate Amino Transf (AST/SGOT) 91H, Alanine Aminotransferase (ALT/SGPT) 199H, Alkaline Phosphatase 117, Ammonia 17, Total Protein 5.8L, Albumin 2.2L, Albumin/Globulin Ratio 0.6 CBC/BMP Laboratory Tests 06/22/21 04:02 Microbiology Microbiology 06/21/21 Gram Stain - Final, Resulted 06/21/21 Sputum Culture, Resulted Pending 06/20/21 Blood Culture - Preliminary, Resulted No growth after 24 hours . All specim... 06/20/21 Blood Culture - Preliminary, Resulted No growth after 24 hours . All specim... Discharge Medications Scheduled Budesonide (Pulmicort) 0.5 Mg/2 Ml [place], 0.5 MG INH BID, (Reported) Budesonide/Formoterol (Symbicort 160-4.5 Mcg Inhaler) 60 Puff/Inhaler Aers, 2 PUFF INH BID, (Reported) Cholecalciferol (Vitamin D3) (Vitamin D3) 1,000 Unit Tablet, 1,000 UNITS PO QHS, (Reported) Docusate Sodium (Colace) 100 Mg Capsule, 100 MG PO QHS, (Reported) Ferrous Sulfate (Iron) 325 Mg Tablet, 325 MG PO DAILY, (Reported) Fluconazole (Diflucan) Unknown Strength Tablet, Unknown Dose PO DAILY for yeast infection, (Reported) Guaifenesin (Mucinex) 1,200 Mg Tab.er.12h, 1,200 MG PO BID, (Reported) Levalbuterol HCl (Levalbuterol HCl) 1.25 Mg/3 Ml Neb, 1.25 MG INH QID, (Reported) Magnesium Oxide (Magnesium Oxide) 400 Mg Tablet, 400 MG PO QHS, (Reported) Midodrine HCl (Midodrine HCl) 10 Mg Tablet, 10 MG PO TID, (Reported) 0800, 1200, 1600 Prednisone (Prednisone) 20 Mg Tablet, 20 MG PO Q2D, (Reported) ALTERNATE WITH 10MG TAB Prednisone (Prednisone) 20 Mg Tablet, 10 MG PO Q2D, (Reported) ALTERNATE WITH 20MG TAB Solifenacin Succinate (Vesicare) 10 Mg Tablet, 10 MG PO DAILY, (Reported) Umeclidinium [place] (Incruse Ellipta) 62.5 Mcg Blst.w.dev, 1 PUFF INH DAILY, (Reported) Vit A/Vit C/Vit E/Zinc/Copper (Preservision Areds Softgel) 1 Each Capsule, 2 CAP PO DAILY, (Reported) Zinc (Zinc) 50 Mg Tablet, 50 MG PO DAILY, (Reported) [Prevagen] , 1 CAP PO DAILY, (Reported) levoFLOXacin (levoFLOXacin) 750 Mg Tablet, 750 MG PO DAILY Scheduled PRN Fluticasone Propionate (Fluticasone Propionate) 16 Gm [place].susp, 1 SPRAY NA BID PRN for NASAL CONGESTION, (Reported) Ipratropium/Albuterol Sulfate (Combivent Respimat 20-100 Mcg) 1 Aer Aer, 1 PUFF INH QID PRN for SHORTNESS OF BREATH, (Reported) Nystatin (Nystatin Oral Susp) 100,000 Unit/1 Ml Oral.susp, 5 ML SSP BID PRN for THRUSH, (Reported) Oxycodone HCl/Acetaminophen (Oxycodone-Acetaminophen 5-325) 1 Each Tablet, 1 TAB PO Q8H PRN for PAIN, (Reported) Allergies Coded Allergies: No Known Allergies (Unverified , 04/03/21) MARIBEL VILLAFUERTE MD Jun 22, 2021 11:26
[2021-06-22 16:08] LABS: MYCOPLASMA PNEUMONIAE IgG 751 U/mL (0-99); MYCOPLASMA PNEUMONIAE IgM <770 U/mL (0-769)
== END 2021-06-22 12:30 | disposition home health service (06) | DRG 194 ==
LOC: M ED 16:44 → M PCU 22:41
PROVIDERS: ADMIT Internal Medicine; ATTEND Internal Medicine
DX: J18.9 Pneumonia, unspecified organism (principal); J90 Pleural effusion, not elsewhere classified; J96.11 Chronic respiratory failure with hypoxia; B37.0 Candidal stomatitis; B37.81 Candidal esophagitis; Z68.1 Body mass index [BMI] 19.9 or less, adult; J44.9 Chronic obstructive pulmonary disease, unspecified; I95.1 Orthostatic hypotension; Z99.81 Dependence on supplemental oxygen; D50.9 Iron deficiency anemia, unspecified; G47.33 Obstructive sleep apnea (adult) (pediatric); Z79.899 Other long term (current) drug therapy; Z85.46 Personal history of malignant neoplasm of prostate; Z92.23 Personal history of estrogen therapy; K74.60 Unspecified cirrhosis of liver

== ENCOUNTER → 2021-06-20 | Outpatient (CLI) | payer MEDICARE, OTHER ==
[~2021-06-20] MED LIST changes: -ATIV1TAB10 PO; -ATOR1TAB19 PO; -BACITAB PO; -CEFD300C PO; -DIFL50TA PO; -DOXY-342 PO; -IRON27TA2 PO; -IRON65TA2 PO; -LEVO750T14 PO; -LEXA1TAB PO; -MAGN400C PO; -MECL-86 PO; -MELA10TA6 PO; -MORP10SO2 PO; -NOXI1TAB PO; -PRED10TA2 PO; +PULM0.5S INH; -PULM0.5S NEB; -SENN-80 PO; -TROS60CA2 PO
--- NOTE | 2021-06-20 15:47 | REP ---
INDICATION: FOLLOW UP LEFT LUNG INFILTRATE. COMPARISON: PA and lateral chest dated 05/03/2021 and PA and lateral chest dated 05/22/2021. TECHNIQUE: Upright PA and lateral chest. FINDINGS: There is effacement of the left costophrenic angle. This was also present previously. However, at the superolateral margin of this is effacement there is an air-fluid level suggestive of hydropneumothorax, as an interval change measuring approximately 1-1/2 by 2 x 3 cm. On 05/03/2021 there was a nodule in the right lung inferiorly. This is no longer identified on the current study. The mid and upper lung zones are clear and unchanged. There is a right shoulder arthroplasty, unchanged. IMPRESSION: New left hydropneumothorax in an area where there was previously left costophrenic angle effacement. Results are telephoned to the requesting physician, Dr. Arron Deras MD. <Electronically signed by Karlos Goff > 06/20/21 [id number]
== END ==
LOC: M WUC 15:05
PROVIDERS: ATTEND Internal Medicine
DX: R91.8 Other nonspecific abnormal finding of lung field (principal)

== ENCOUNTER → 2021-07-06 | Outpatient (REF) | payer MEDICARE, OTHER ==
[~2021-07-06] MED LIST changes: +COLA100C5 PO; +D31000TA2 PO; +FLUC10TA PO; +LEVO750T14 PO; +MAGN400T2 PO; +MIDO10TA PO; +PREVAGEN PO
[2021-07-06 19:52] LABS: LYMPHOCYTES 5 % (16-44); MONOCYTES 7 % (0-5); NEUTROPHILS 88 % (28-66)
[2021-07-06 19:53] LABS: PLATELET ESTIMATE NORMAL (NORMAL)
== END ==
LOC: M LAB REF 17:46
PROVIDERS: ATTEND Internal Medicine
DX: J90 Pleural effusion, not elsewhere classified (principal); D72.829 Elevated white blood cell count, unspecified

== ENCOUNTER 2021-07-27 13:16 | Inpatient (IN) | payer MEDICARE, OTHER ==
[~2021-07-27] VITALS: Ht 182.9 cm; Wt 60.0 kg
[~2021-07-27 13:16] MED LIST changes: -PULM0.5S INH; +PULM0.5S NEB
[2021-07-27] MEDS ORDERED: ATOR1TAB19 PO (14:31)
[2021-07-27] MEDS ORDERED: methylPREDNISolone 125MG 2ML VIAL IV ONE (14:35)
[2021-07-27] MEDS: COMBIVENT RESPIMAT 100-20MCG INHALER 4GM INH SCH ×2 (14:56→14:57)
[2021-07-27 14:58] LABS: HEMATOCRIT 35.1 % (42.0-52.0); MEAN CORPUSCULAR HGB CONC 31.3 g/dl (32.0-36.5); MEAN CORPUSCULAR VOLUME 70.1 fl (80.0-96.0); PLATELET COUNT, AUTOMATED 289 10^3/uL (150-450); RED BLOOD COUNT 5.01 10^6/uL (4.30-6.10); WHITE BLOOD COUNT 10.9 10^3/uL (4.0-10.0)
[2021-07-27] MEDS ORDERED: ATIV1TAB10 PO (14:58)
[2021-07-27] MEDS ORDERED: HOME MED LIST COMPLETE! XX SCH (15:05)
[2021-07-27 15:11] LABS: ABG BASE EXCESS 1.8 (-2.0-2.0); ABG HCO3 24.3 MEQ/L (22.0-26.0); ABG O2 SATURATION 92.7 % (95.0-99.0); ABG PARTIAL PRESSURE CO2 31.3 mmHg (35.0-45.0); ABG PARTIAL PRESSURE O2 61.2 mmHg (75.0-100.0); ABG TOTAL CO2 25.3 MEQ/L (23.0-31.0); ABG pH (ARTERIAL) 7.508 UNITS (7.350-7.450)
--- NOTE | 2021-07-27 15:24 | REP ---
INDICATION: DYSPNEA/COUGH. COMPARISON: 06/20/2021. TECHNIQUE: Single portable AP view of the chest was performed. FINDINGS: Infiltrate throughout the right lower lung zone appears essentially unchanged. Infiltrate in the left lower lung zone appears mildly increased. Pleural based density at the left costophrenic angle is mildly improved, with resolution of the very small amount of loculated pleural air at that location. The heart and mediastinum appear unchanged. Right shoulder prosthesis is again noted. IMPRESSION: Right lower lung infiltrate is essentially unchanged. Mild increase in left lower lung infiltrate with improved left pleural opacity. <Electronically signed by Karlos Bay > 07/27/21 [id number]
[2021-07-27 15:32] LABS: ALBUMIN 2.4 GM/DL (3.2-5.2); ALT/SGPT 113 U/L (12-78); BILIRUBIN,DIRECT < 0.1 MG/DL (0.0-0.2); BILIRUBIN,TOTAL 0.3 MG/DL (0.2-1.0); BLOOD UREA NITROGEN 20 MG/DL (7-18); CALCIUM LEVEL 8.7 MG/DL (8.8-10.2); CARBON DIOXIDE LEVEL 27 MEQ/L (21-32); CHLORIDE LEVEL 100 MEQ/L (98-107); CK-MB VALUE MASS 1.5 NG/ML (<3.6); CPK CREATINE PHOSPHOKINASE 37 U/L (39-308); CREATININE FOR GFR 0.37 MG/DL (0.70-1.30); GLOMERULAR FILTRATION RATE > 60.0 (>42); GLUCOSE, FASTING 102 MG/DL (70-100); MB/CK RELATIVE INDEX 4.05 (< OR =4); NT-PRO BNP 724 PG/ML (<450); POTASSIUM SERUM 4.8 MEQ/L (3.5-5.1); SODIUM LEVEL 134 MEQ/L (136-145); TOTAL PROTEIN 6.6 GM/DL (6.4-8.2); TROPONIN I < 0.02 NG/ML (< 0.10)
[2021-07-27 15:38] LABS: LYMPHOCYTES 8 % (16-44); MONOCYTES 10 % (0-5); NEUTROPHILS 61 % (28-66)
[2021-07-27 15:39] LABS: ANISOCYTOSIS 1+
[2021-07-27 15:40] LABS: MICROCYTOSIS 2+; PLATELET ESTIMATE NORMAL (NORMAL)
[2021-07-27 15:41] LABS: HYPOCHROMASIA 1+; TOXIC GRANULATION 1+
[2021-07-27] MEDS ORDERED: PIPERACILLIN/TAZOBACTAM SOD 4.5 GM in D5W MINI-BAG PLUS 50 ML IV ONE (15:55)
--- NOTE | 2021-07-27 17:59 | HPEPDOC ---
[facility] Medical History & Physical Date of Admission Jul 27, 2021 Date of Service: Jul 27, 2021 History and Physical CHIEF COMPLAINT: Shortness of breath HISTORY OF PRESENT ILLNESS: Patient is 76-year-old male with a past medical history of oxygen dependent COPD and 2 L of O2 at home, MARGARETTE, hypertension, prostate cancer in remission status post radiation therapy, dyslipidemia as well as recent admission for empyema and prior to that postobstructive pneumonia with parapneumonic effusion. The patient completed 2 days of vancomycin and Zosyn and was discharged on levofloxacin. Patient did not receive drainage of the em pyema. He returns with 3-day history of worsening cough productive of yellow and green sputum. Patient is currently on 3 L of oxygen in the ER. His white count is 10.4. ABG showed respiratory alkalosis. She will be admitted to hospital service for the management of pneumonia. He will be started on Zosyn as well as Levaquin. 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 REVIEW OF SYSTEMS: 10 point ROS conducted, relevant findings are noted in HPI HOME MEDICATIONS: Please see below. PHYSICAL EXAMINATION: VITAL SIGNS: please see below General: NAD, comfortable HEENT: PERRLA, EOMI, sclerae clear Neck: supple, normal ROM, no JVD Respiratory: lungs CTAB, no wheeze, no rales, no crackles CVS: Bilateral rales reduced breath sounds in the right lower lobe. On 4 L of oxygen. Abdo: soft, no masses, no hepatosplenomegaly, BS+, no rebound tenderness Extremities: no edema, pulses 2+ MSK: no joint deformities, normal ROM Neuro: no focal neuro deficits, moving all 4 extremities, CN2-12 intact. Streng th 5/5 in all 4 extremities. No nystagmus. Psych: calm, cooperative, AAO x 3 LABORATORY DATA: See below. IMAGING: CXR (07/27/21); IMPRESSION: Right lower lung infiltrate is essentially unchanged. Mild increase in left lower lung infiltrate with improved left pleural opacity. MICROBIOLOGY: Please see below. ASSESSMENT: Patient is 76-year-old male with a past medical history of oxygen dependent COPD and 2 L of O2 at home, MARGARETTE, hypertension, prostate cancer in rem ission status post radiation therapy, dyslipidemia as well as recent admission for empyema and prior to that postobstructive pneumonia with parapneumonic effusion. The patient completed 2 days of vancomycin and Zosyn and was discharged on levofloxacin. Patient did not receive drainage of the empyema. He returns with 3-day history of worsening cough productive of yellow and green sputum. Patient is currently on 3 L of oxygen in the ER. His white count is 10.4. ABG showed respiratory alkalosis. She will be admitted to hospital service for the management of pneumonia. He will be started on Zosyn as well as Levaquin. . PLAN: Postobstructive pneumonia/effusion/empyema - patient does not meet SIRS criteria - requires 3L O2, baseline 2L at home - CXR shows stable consolidation in RLL, with worsening of consolidation in LLE - start patient on zosyn and levaquin,. Start on solumedrol 60 mg IV q8h, in concurrent therapy for COPD exacerbation. - CTA chest ordered. Check legionella ag, strep pneumo ag. - incentive spirometry, acapella ordered - pulmonology consult placed given 3 re-admission, d/w Dr. Vinson. Acute COPD exacerbtaion 2/2 infection - start solumedrol 60 mg IV q8h - resume inhalers - patient takes chronic prednisone 30 mg q2d PO - follows with Dr. Thacker. Microcytic Hypochromic anemia - needs outpatient EGD and colonscopy upon DC Sarcopenia - weight incorrectly measure - recent admission shows BMI 18.1 - complicating care. - patient appears very thin and frail, not c/w weight of 132 kg. CODE STATUS: wishes to be full code Dispo: pending clinical improvement. Vital Signs Vital Signs Date Time Temp Pulse Resp B/P (MAP) Pulse Ox O2 Delivery O2 Flow Rate FiO2 07/27/21 17:46 94 18 93 Nasal Cannula 3.0 07/27/21 17:15 114/58 (76) 07/27/21 13:19 98.1 Laboratory Data Labs 24H Laboratory Tests 2 07/27/21 14:38: Neutrophils (%) (Auto) , Nucleated Red Blood Cells % (auto) 0.0, Neutrophils 61, Band Neutrophils 21H, Lymphocytes (Manual) 8L, Monocytes (Manual) 10H, Hypochromasia 1+, Anisocytosis 1+, Microcytosis 2+, Toxic Granulation 1+, P latelet Estimate NORMAL, Anion Gap 7L, Glomerular Filtration Rate > 60.0, Lactic Acid Level 1.7, Calcium Level 8.7L, Total Bilirubin 0.3, Direct Bilirubin < 0.1, Aspartate Amino Transf (AST/SGOT) 60H, Alanine Aminotransferase (ALT/SGPT) 113H, Alkaline Phosphatase 95, Total Creatine Kinase 37L, Creatine Kinase MB 1.5, Creatine Kinase MB Relative Index 4.05H, Troponin I < 0.02, YC-Hlj-S-Type Natriuretic Peptide 724H, Total Protein 6.6, Albumin 2.4L, Albumin/Globulin Ratio 0.6, Thyroid Stimulating Hormone (TSH) 1.040, Thyroxine (T4) 6.0 07/27/21 14:58: Blood Gas Bicarbonate Standard 26.0, Arterial Blood pH 7.508H, Arterial Blood Partial Pressure CO2 31.3L, Arterial Blood Partial Pressure O2 61.2L, Arterial Blood Total CO2 25.3, Arterial Blood HCO3 24.3, Arterial Blood Base Excess 1.8, Arterial Blood Oxygen Saturation 92.7L CBC/BMP Laboratory Tests 07/27/21 14:38 Microbiology Microbiology 07/27/21 Respiratory Virus Panel (PCR) (CORTES) - Final, Complete 07/27/21 Blood Culture, Received Pending 07/27/21 Blood Culture, Received Pending Home Medications Scheduled Atorvastatin Calcium (Atorvastatin Calcium) 10 Mg Tablet, 10 MG PO DAILY Budesonide (Pulmicort) 0.5 Mg/2 Ml [place], 0.5 MG NEB BID Budesonide/Formoterol (Symbicort 160-4.5 Mcg Inhaler) 60 Puff/Inhaler Aers, 2 PUFF INH BID Guaifenesin (Mucinex) 1,200 Mg Tab.er.12h, 1,200 MG PO BID Levalbuterol HCl (Levalbuterol HCl) 1.25 Mg/3 Ml Neb, 1.25 MG INH QID Midodrine HCl (Midodrine HCl) 10 Mg Tablet, 10 MG PO TID 0800, 1200, 1600 Prednisone (Prednisone) 20 Mg Tablet, 20 MG PO Q2D ALTERNATE WITH 10MG TAB Prednisone (Prednisone) 20 Mg Tablet, 10 MG PO Q2D ALTERNATE WITH 20MG TAB Solifenacin Succinate (Vesicare) 10 Mg Tablet, 10 MG PO DAILY Vit A/Vit C/Vit E/Zinc/Copper (Preservision Areds Softgel) 1 Each Capsule, 2 CAP PO DAILY [Prevagen] , 1 CAP PO DAILY Scheduled PRN Docusate Sodium (Colace) 100 Mg Capsule, 100 MG PO QHS PRN for SOB/WHEEZING Fluticasone Propionate (Fluticasone Propionate) 16 Gm [place].susp, 1 SPRAY NA BID PRN for NASAL CONGESTION Ipratropium/Albuterol Sulfate (Combivent Respimat 20-100 Mcg) 1 Aer Aer, 1 PUFF INH QID PRN for SHORTNESS OF BREATH Lorazepam (Ativan) 0.5 Mg Tablet, 0.5 MG PO QHS PRN for ANXIETY Allergies Coded Allergies: No Known Allergies (Unverified , 04/03/21) MAKENZIE ROCHE MD Jul 27, 2021 17:59
[2021-07-27] MEDS ORDERED: MAALOX 30 ML SUSP *UDC PO PRN (18:00)
[2021-07-27] MEDS ORDERED: MOM 30ML SUSPENSION UDC PO PRN (18:00)
[2021-07-27] MEDS ORDERED: LevoFLOXacin 750 MG TABLET PO SCH (18:00)
[2021-07-27] MEDS ORDERED: ISOVUE-370 76% 100ML VIAL As Ordered ONE (18:37)
[2021-07-27] MEDS ORDERED: DOCUSATE SODIUM 100MG CAPSULE PO PRN (18:45)
[2021-07-27] MEDS ORDERED: FLUTICASONE PROP 0.05% NASAL SPRAY 16 GM (FLONASE) PRN (18:45)
[2021-07-27] MEDS ORDERED: COMBIVENT RESPIMAT 100-20MCG INHALER 4GM INH PRN (18:45)
[2021-07-27] MEDS: SYMBICORT 160/4.5MCG INHALER 6GM INH SCH (20:00)
[2021-07-27] MEDS: BUDESONIDE 0.5 MG/2 ML INHALATION SUSPENSION NEB SCH (20:00)
--- NOTE | 2021-07-27 20:22 | REPVR ---
PROCEDURE INFORMATION: Exam: CTA Chest With Contrast Exam date and time: 07/27/2021 7:32 PM Age: 76 years old Clinical indication: Other: R/O pe, effusion TECHNIQUE: Imaging protocol: Computed tomographic angiography of the chest with contrast. 3D rendering (Not supervised by radiologist): MIP and/or 3D reconstructed images were created by the technologist. Radiation optimization: All CT scans at this facility use at least one of these dose optimization techniques: automated exposure control; mA and/or kV adjustment per patient size (includes targeted exams where dose is matched to clinical indication); or iterative reconstruction. Contrast material: ISOVUE 370; Contrast volume: 75 ml; Contrast route: INTRAVENOUS (IV); COMPARISON: CT Chest with contrast 06/20/2021 7:59 PM FINDINGS: Pulmonary arteries: There are no pulmonary emboli. Aorta: There is no aortic dissection or aneurysm. Lungs: Moderate to severe paraseptal and centrilobular emphysematous changes throughout both lungs most pronounced in the upper lung zones. Multiple irregular pulmonary parenchymal opacities which have developed in the interval between most recent prior examination. These include new foci in the posterior segment of the right upper lobe, posterior segment of the left upper lobe, lingular lobe and right lower lobe. Numerous other parenchymal opacities are stable in comparison to the prior study and several foci have resolved. Findings consistent with multifocal pneumonitis. Also noted are multiple dilated bronchial structures secondary to bronchiectasis with foci of mucous plugging. Associated thickened airways consistent with bronchitis. A stellate process in the right lower lobe has decreased in size in comparison to the prior study despite worrisome characteristics. Continue interval follow-up suggested. Multiple smooth bordered peripheral pulmonary parenchymal nodules are stable likely postinflammatory. Well inflated lungs with flattened diaphragmatic contours and increased retrosternal airspace consistent with COPD. Pleural spaces: Unremarkable. No pneumothorax. No pleural effusion. Heart: There is mild atherosclerotic calcification of the coronary arteries. Lymph nodes: Unremarkable. No enlarged lymph nodes. Bones/joints: Status post reverse arthroplasty right shoulder. The spine demonstrates moderate degenerative changes. Osteoporosis. Soft tissues: Unremarkable. IMPRESSION: 1. Multiple irregular pulmonary parenchymal opacities which have developed in the interval between most recent prior examination. These include new foci in the posterior segment of the right upper lobe, posterior segment of the left upper lobe, lingular lobe and right lower lobe. Numerous other parenchymal opacities are stable in comparison to the prior study and several foci have resolved. Findings consistent with multifocal pneumonitis. 2. Also noted are multiple dilated bronchial structures secondary to bronchiectasis with foci of mucous plugging. Associated thickened airways consistent with bronchitis. 3. A stellate process in the right lower lobe has decreased in size in comparison to the prior study despite worrisome characteristics. Continue interval follow-up suggested. 4. Multiple smooth bordered peripheral pulmonary parenchymal nodules are stable likely postinflammatory. 5. There is no aortic dissection or aneurysm. 6. COPD. 7. There are no pulmonary emboli. Electronically signed by: Jose Roberto Byrd On 07/27/2021 20:22:14 PM
[2021-07-27 20:40] VITALS: BP 127/71
[2021-07-27] MEDS: guaiFENesin ER 600 MG TAB PO SCH (21:12)
[2021-07-27] MEDS: PIPERACILLIN/TAZOBACTAM SOD 4.5 GM in D5W MINI-BAG PLUS 50 ML IV SCH (21:12)
[2021-07-27] MEDS: DOCUSATE SODIUM 100MG CAPSULE PO SCH (21:12)
[2021-07-27] MEDS: methylPREDNISolone 125MG 2ML VIAL IV SCH (22:41)
--- NOTE | 2021-07-28 01:16 | CR.PDOC ---
General Date of Consultation: Jul 28, 2021 Referring Provider: MAKENZIE ROCHE MD Primary Care Physician: Bentley Thacker Attending Physician: MAKENZIE ROCHE MD Consultation REASON FOR CONSULTATION/CHIEF COMPLAINT: Productive cough and shortness of breath. HISTORY OF PRESENT ILLNESS: This is a 76-year-old gentleman with past medical history of severe emphysema and COPD, chronic hypoxic respiratory failure secondary to COPD on 2 L oxygen at home, MARGARETTE noncompliant with CPAP therapy, history of hypertension, prostate cancer in remission, diverticular disease presented to the hospital with shortness of breath and cough. He has been experiencing productive cough and shortness of breath for the last 4 to 5 days. He was coughing up white to yellowish sputum. This is worsened from his baseline. He ended up seeing Dr. Thacker (his [facility]) as outpatient and imaging was done that shows possibility of pneumonia. Therefore he was referred to the emergency department for further evaluation. Other than shortness of breath and productive cough, he denies of fever, chills, hemoptysis, night sweats, weight loss, chest pain, palpitation, orthopnea, lower extremity swelling. I had a pleasure of seeing him about 3 weeks ago (back in Jun 2021) when he was admitted to the hospital for community-acquired pneumonia. I was consulted for management of his left pleural effusion. At that time, I evaluated his left- sided pleural effusion with ultrasound that shows a small pocket of simple fluid that is not amendable with thoracentesis. Patient received Zosyn and subsequently discharged with Levaquin. Prior to that hospital admission, he was admitted again back in Apr 2021 with community-acquired pneumonia and parapneumonic effusion managed with IV Zosyn and pigtail catheter drainage. This is his third hospital admission for pneumonia. Upon admission to the hospital, his vital signs were stable. He has a slight leukocytosis with no evidence of bandemia. Chemistry panel is within normal limit. CT angiography of the chest showed no evidence of acute pulmonary embolism. However there are new infiltrates noted in the posterior aspects of the right upper lobe as well as right lower lobe. The characteristic of the left sided pleural effusion appears to be the same compared to the CT scan from last hospital admission. Pulmonary was consulted for further recommendation. ALLERGIES: Please see below. HOME MEDICATIONS: Please see below. 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 HEENT: Denies of sore throat or postnasal drip. CARDIOVASCULAR: Denies of chest pain or palpitation, orthopnea, PND. RESPIRATORY: Admits to shortness of breath and cough but denies wheezing or hemoptysis. GENITOURINARY: Denies of dysuria. MUSCULOSKELETAL: Denies of arthralgia or myalgia. GASTROINTESTINAL: Denies of nausea, vomiting, hematemesis, diarrhea. SKIN: Denies of rash. NEUROLOGICAL: Denies of any focal weakness or numbness. PSYCHIATRIC: Denies of depression. ENDOCRINE: Denies of temperature sensitivity. HEMATOLOGIC/LYMPHATIC: Denies of bleeding. ALLERGIC/IMMUNOLOGIC: Denies of allergy. PHYSICAL EXAMINATION: VITAL SIGNS: Please see below. GENERAL APPEARANCE: Patient is alert and oriented x3, patient is not in any acute distress and he is speaking full sentences. HEENT: There is no evidence of JVD or cervical adenopathy. RESPIRATORY: Patient has bibasilar coarse crackle more prominently in the right lower lobe with significant positive egophony sounds. CARDIOVASCULAR: Regular S1-S2 with no evidence of murmur. ABDOMEN: Soft, nontender, hypoactive bowel sounds. EXTREMITIES: No evidence of pedal edema. NEUROLOGICAL: Gross neuro examination is intact. PSYCHIATRIC: Alert and oriented. LABORATORY DATA: Please see below. LABORATORY DATA: Please see below. ASSESSMENT/PLAN: This is a 76-year-old gentleman with past medical history of severe emphysema and COPD, chronic hypoxic respiratory failure secondary to COPD on 2 L oxygen at home, MARGARETTE noncompliant with CPAP therapy, history of hypertension, prostate cancer in remission, diverticular disease presented to the hospital with shortness of breath and cough. 1. Healthcare associated pneumonia. 2. Suspected aspiration. 3. Very severe COPD 4. Chronic hypoxic respiratory failure Recommendations: 1. He should be continue with Zosyn. Levaquin should be discontinued and vancomycin should be added to cover empirically for HAP. His sign symptom is strongly suggestive of pneumonia as opposed to COPD exacerbation. 2. Recommend continuing with Symbicort and Combivent. Can stop systemic corticosteroid and put him back on home prednisone as I do not suspect COPD exacerbation. 3. Obtain sputum culture. 4. Speech therapy assessment for suspected aspiration. 5. Long discussions with patient regarding goals of care as patient has end- stage COPD. This is his 3rd hospital admissions in the last 3 months. Long- term consideration for palliative care to prevent hospital readmission and aim for comfort care. He would benefit of pulmonary rehab and [facility] as outpatient. Short-term consideration to switching his CODE STATUS to DNR/DNI. Will give patient time to think about these considerations. Vital Signs/I&O Vital Signs Date Time Temp Pulse Resp B/P (MAP) Pulse Ox O2 Delivery O2 Flow Rate FiO2 07/27/21 19:01 88 96 07/27/21 19:00 97.0 17 101/63 (76) Nasal Cannula 3.0 I&O- Last 24 Hours up to 6 AM 07/28/21 06:00 Intake Total 50 ml Balance 50 ml Laboratory Data Labs 24H Laboratory Tests 2 07/27/21 14:38: Neutrophils (%) (Auto) , Nucleated Red Blood Cells % (auto) 0.0, Neutrophils 61, Band Neutrophils 21H, Lymphocytes (Manual) 8L, Monocytes (Manual) 10H, Hypochr omasia 1+, Anisocytosis 1+, Microcytosis 2+, Toxic Granulation 1+, Platelet Estimate NORMAL, Anion Gap 7L, Glomerular Filtration Rate > 60.0, Lactic Acid Level 1.7, Calcium Level 8.7L, Total Bilirubin 0.3, Direct Bilirubin < 0.1, Aspartate Amino Transf (AST/SGOT) 60H, Alanine Aminotransferase (ALT/SGPT) 113H, Alkaline Phosphatase 95, Total Creatine Kinase 37L, Creatine Kinase MB 1.5, Creatine Kinase MB Relative Index 4.05H, Troponin I < 0.02, XR-Qgp-S-Type Natriuretic Peptide 724H, Total Protein 6.6, Albumin 2.4L, Albumin/Globulin Ratio 0.6, Thyroid Stimulating Hormone (TSH) 1.040, Thyroxine (T4) 6.0 07/27/21 14:58: Blood Gas Bicarbonate Standard 26.0, Arterial Blood pH 7.508H, Arterial Blood Partial Pressure CO2 31.3L, Arterial Blood Partial Pressure O2 61.2L, Arterial Blood Total CO2 25.3, Arterial Blood HCO3 24.3, Arterial Blood Base Excess 1.8, Arterial Blood Oxygen Saturation 92.7L CBC/BMP Laboratory Tests 07/27/21 14:38 Microbiology Microbiology 07/27/21 Respiratory Virus Panel (PCR) ([facility]) - Final, Complete 07/27/21 Blood Culture, Received Pending 07/27/21 Blood Culture, Received Pending Allergies Coded Allergies: No Known Allergies (Unverified , 04/03/21) Home Medications Scheduled Atorvastatin Calcium (Atorvastatin Calcium) 10 Mg Tablet, 10 MG PO DAILY, (Reported) Budesonide (Pulmicort) 0.5 Mg/2 Ml [place], 0.5 MG NEB BID, (Reported) Budesonide/Formoterol (Symbicort 160-4.5 Mcg Inhaler) 60 Puff/Inhaler Aers, 2 PUFF INH BID, (Reported) Docusate Sodium (Colace) 100 Mg Capsule, 100 MG PO QHS, (Reported) Guaifenesin (Mucinex) 1,200 Mg Tab.er.12h, 1,200 MG PO BID, (Reported) Levalbuterol HCl (Levalbuterol HCl) 1.25 Mg/3 Ml Neb, 1.25 MG INH QID, (Reported) Midodrine HCl (Midodrine HCl) 10 Mg Tablet, 10 MG PO TID, (Reported) 0800, 1200, 1600 Prednisone (Prednisone) 20 Mg Tablet, 20 MG PO Q2D, (Reported) ALTERNATE WITH 10MG TAB Prednisone (Prednisone) 20 Mg Tablet, 10 MG PO Q2D, (Reported) ALTERNATE WITH 20MG TAB Solifenacin Succinate (Vesicare) 10 Mg Tablet, 10 MG PO DAILY, (Reported) Vit A/Vit C/Vit E/Zinc/Copper (Preservision Areds Softgel) 1 Each Capsule, 2 CAP PO DAILY, (Reported) [Prevagen] , 1 CAP PO DAILY, (Reported) Scheduled PRN Fluticasone Propionate (Fluticasone Propionate) 16 Gm [place].susp, 1 SPRAY NA BID PRN for NASAL CONGESTION, (Reported) Ipratropium/Albuterol Sulfate (Combivent Respimat 20-100 Mcg) 1 Aer Aer, 1 PUFF INH QID PRN for SHORTNESS OF BREATH, (Reported) Lorazepam (Ativan) 0.5 Mg Tablet, 0.5 MG PO QHS PRN for ANXIETY, (Reported) NICOL FREGOSO MD Jul 28, 2021 01:16
[2021-07-28] MEDS: LEVALBUTEROL 1.25 MG/0.5 ML CONCENTRATE NEB INH SCH ×5 (01:33→18:13)
[2021-07-28] MEDS: LORazepam 0.5 MG TAB PO PRN ×2 (01:54→22:33)
[2021-07-28] MEDS: PIPERACILLIN/TAZOBACTAM SOD 4.5 GM in D5W MINI-BAG PLUS 50 ML IV SCH ×4 (04:39→21:00)
--- NOTE | 2021-07-28 05:17 | ECGEPIP ---
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
[2021-07-28 06:00] VITALS: BP 127/70
[2021-07-28] MEDS: methylPREDNISolone 125MG 2ML VIAL IV SCH (06:05)
[2021-07-28 06:30] LABS: BASO % 0.2 % (0.0-1.0); HEMATOCRIT 31.5 % (42.0-52.0); HEMOGLOBIN 9.8 g/dl (13.5-17.5); LYMPH # 0.5 10^3/uL (1.5-5.0); LYMPH % 7.1 % (24.0-44.0); MEAN CORPUSCULAR HEMOGLOBIN 21.4 pg (27.0-33.0); MEAN CORPUSCULAR HGB CONC 31.1 g/dl (32.0-36.5); MEAN CORPUSCULAR VOLUME 68.6 fl (80.0-96.0); MONO # 0.2 10^3/uL (0.0-0.8); MONO % 3.1 % (2.0-8.0); NEUTROPHILS # 5.6 10^3/uL (1.5-8.5); NEUTROPHILS % 88.8 % (36.0-66.0); PLATELET COUNT, AUTOMATED 240 10^3/uL (150-450); RED BLOOD COUNT 4.59 10^6/uL (4.30-6.10); WHITE BLOOD COUNT 6.4 10^3/uL (4.0-10.0)
[2021-07-28 06:49] LABS: ALBUMIN 2.2 GM/DL (3.2-5.2); ALT/SGPT 84 U/L (12-78); BILIRUBIN,TOTAL 0.3 MG/DL (0.2-1.0); BLOOD UREA NITROGEN 19 MG/DL (7-18); CALCIUM LEVEL 8.6 MG/DL (8.8-10.2); CARBON DIOXIDE LEVEL 26 MEQ/L (21-32); CHLORIDE LEVEL 102 MEQ/L (98-107); CREATININE FOR GFR 0.37 MG/DL (0.70-1.30); GLOMERULAR FILTRATION RATE > 60.0 (>42); GLUCOSE, FASTING 123 MG/DL (70-100); POTASSIUM SERUM 4.4 MEQ/L (3.5-5.1); SODIUM LEVEL 135 MEQ/L (136-145); TOTAL PROTEIN 6.1 GM/DL (6.4-8.2)
[2021-07-28] MEDS: SYMBICORT 160/4.5MCG INHALER 6GM INH SCH ×2 (07:26→18:11)
[2021-07-28] MEDS: BUDESONIDE 0.5 MG/2 ML INHALATION SUSPENSION NEB SCH ×2 (07:27→18:13)
[2021-07-28] MEDS: MIDODRINE 5 MG TAB PO SCH ×3 (07:45→16:25)
[2021-07-28] MEDS: ENOXAPARIN 40MG/0.4ML SYRINGE (J1650 PER 10MG) SC SCH (09:04)
[2021-07-28] MEDS: guaiFENesin ER 600 MG TAB PO SCH ×2 (09:04→20:59)
[2021-07-28] MEDS: ATORVASTATIN 10 MG TAB PO SCH (09:05)
[2021-07-28] MEDS: OCUVITE 1 TAB PO SCH (09:05)
[2021-07-28] MEDS: SOLIFENACIN 5 MG TAB PO SCH (09:05)
[2021-07-28 14:00] VITALS: BP 118/66
[2021-07-28] MEDS ORDERED: VANCOMYCIN HCL 1,000 MG, VIAL MATE ADAPTER 1 EACH in NS 250 ML IV SCH (14:10)
--- NOTE | 2021-07-28 14:19 | IPNPDOC ---
Date Seen The patient was seen on 07/28/21. Progress Note SUBJECTIVE: Patient seen examined at bedside. On 3 L of nasal cannula. Saturating 93%. Denies any chest pain palpitation, sweating fevers chills nausea vomiting. He is mildly short of breath. Blood cultures positive for gram positive cocci in clusters. OBJECTIVE PHYSICAL EXAMINATION: VITAL SIGNS: please see below General: NAD, comfortable HEENT: PERRLA, EOMI, sclerae clear Neck: supple, normal ROM, no JVD Respiratory: lungs CTAB, no wheeze, no rales, no crackles CVS: RRR, normal S1, S2, no murmurs Abdo: soft, no masses, no hepatosplenomegaly, BS+, no rebound tenderness Extremities: no edema, pulses 2+ MSK: no joint deformities, normal ROM Neuro: no focal neuro deficits, moving all 4 extremities, CN2-12 intact. Strength 5/5 in all 4 extremities. No nystagmus. Psych: calm, cooperative, AAO x 3 LABORATORY DATA, IMAGING STUDIES, MICROBIOLOGY: Please see below. DVT prophylaxis ordered?: Y ASSESSMENT AND PLAN: Patient is 76-year-old male with a past medical history of oxygen dependent COPD and 2 L of O2 at home, MARGARETTE, hypertension, prostate cancer in remission status post radiation therapy, dyslipidemia as well as recent admission for empyema and prior to that postobstructive pneumonia with parapneumonic effusion. The patient completed 2 days of vancomycin and Zosyn and was discharged on levofloxacin. He returns with 3-day history of worsening cough productive of yellow and green sputum. Patient is currently on 3 L of oxygen in the ER. His white count is 10.4. ABG showed respiratory alkalosis. She will be admitted to hospital service for the management of pneumonia. Pulmonology was consulted. Started on therapy for hospital associated pneumonia. PROBLEMS: Postobstructive pneumonia/effusion/empyema - patient does not meet SIRS criteria - requires 3L O2, baseline 2L at home - CXR shows stable consolidation in RLL, with worsening of consolidation in LL - CTA chest ordered. Check legionella ag, strep pneumo ag. - incentive spirometry, acapella ordered - pulmonology consult placed given 3 re-admission, d/w Dr. Vinson. - does not believe this to be acute COPD exacerbation, rather hospital associated pneumonia - blood cx growing gram positive cocci in cluster - receive 1 day zosyn and levaquin - switch to zosyn and vancomycin. DC levaquin. - obtain speech therapy eval for possible aspiration. Acute COPD exacerbation 2/2 infection - Will DC solumedrol on Dr. Vinson's recs - c/w home prednisone of 30 mg q2d. - resume inhalers - follows with Dr. Thacker. Microcytic Hypochromic anemia - needs outpatient EGD and colonscopy upon DC Sarcopenia - BMI 17.9 - end stage COPD - dietary eval - complicating care. CODE STATUS: wishes to be full code. Dispo: pending clinical improvement VS, I&O, 24H, Fishbone Vital Signs/I&O Vital Signs Date Time Temp Pulse Resp B/P (MAP) Pulse Ox O2 Delivery O2 Flow Rate FiO2 07/28/21 06:00 97.3 73 20 127/70 (89) 94 Nasal Cannula 3.0 I&O- Last 24 Hours up to 6 AM 07/28/21 05:59 Intake Total 660 ml Output Total 650 ml Balance 10 ml Laboratory Data 24H LABS Laboratory Tests 2 07/27/21 14:38: Neutrophils (%) (Auto) , Nucleated Red Blood Cells % (auto) 0.0, Neutrophils 61, Band Neutrophils 21H, Lymphocytes (Manual) 8L, Monocytes (Manual) 10H, Hypochromasia 1+, Anisocytosis 1+, Microcytosis 2+, Toxic Granulation 1+, Platelet Estimate NORMAL, Anion Gap 7L, Glomerular Filtration Rate > 60.0, Lactic Acid Level 1.7, Calcium Level 8.7L, Total Bilirubin 0.3, Direct Bilirubin < 0.1, Aspartate Amino Transf (AST/SGOT) 60H, Alanine Aminotransferase (ALT/SGPT) 113H, Alkaline Phosphatase 95, Total Creatine Kinase 37L, Creatine Kinase MB 1.5, Creatine Kinase MB Relative Index 4.05H, Troponin I < 0.02, XT-Txp-O-Type Natriuretic Peptide 724H, Total Protein 6.6, Albumin 2.4L, Albumin/Globulin Ratio 0.6, Thyroid Stimulating Hormone (TSH) 1.040, Thyroxine (T4) 6.0 07/27/21 14:58: Blood Gas Bicarbonate Standard 26.0, Arterial Blood pH 7.508H, Arterial Blood Partial Pressure CO2 31.3L, Arterial Blood Partial Pressure O2 61.2L, Arterial Blood Total CO2 25.3, Arterial Blood HCO3 24.3, Arterial Blood Base Excess 1.8, Arterial Blood Oxygen Saturation 92.7L 07/28/21 05:49: Neutrophils (%) (Auto) 88.8H, Nucleated Red Blood Cells % (auto) 0.0, Immature Granulocyte % (Auto) 0.8, Lymphocytes (%) (Auto) 7.1L, Monocytes (%) (Auto) 3.1, Eosinophils (%) (Auto) 0.0, Basophils (%) (Auto) 0.2, Neutrophils # (Auto) 5.6, Lymphocytes # (Auto) 0.5L, Monocytes # (Auto) 0.2, Eosinophils # (Auto) 0.0, Basophils # (Auto) 0.0 07/28/21 05:50: Anion Gap 7L, Glomerular Filtration Rate > 60.0, Calcium Level 8.6L, Total B ilirubin 0.3, Aspartate Amino Transf (AST/SGOT) 32, Alanine Aminotransferase (ALT/SGPT) 84H, Alkaline Phosphatase 83, Total Protein 6.1L, Albumin 2.2L, Albumin/Globulin Ratio 0.6, Magnesium Level 2.0 CBC/BMP Laboratory Tests 07/27/21 14:38 07/28/21 05:49 07/28/21 05:50 Microbiology Microbiology 07/28/21 Gram Stain, Received Pending 07/28/21 Sputum Culture, Received Pending 07/27/21 Respiratory Virus Panel (PCR) (CORTES) - Final, Complete 07/27/21 Blood Culture, Received Pending 07/27/21 Blood Culture - Preliminary, Resulted MAKENZIE ROCHE MD Jul 28, 2021 14:19
[2021-07-28] MEDS ORDERED: VANCOMYCIN HCL 750 MG, VIAL MATE ADAPTER 1 EACH in NS 250 ML IV ONE ×2 (15:00→16:00)
[2021-07-28] MEDS: ACETAMINOPHEN TAB 650MG DOSE (2X325MG) PO PRN (15:17)
[2021-07-28] MEDS: predniSONE 10 MG TAB PO SCH (15:19)
[2021-07-28] MEDS: DOCUSATE SODIUM 100MG CAPSULE PO SCH (20:59)
[2021-07-28 22:00] VITALS: BP 118/67
[2021-07-28] MEDS: VANCOMYCIN HCL 750 MG, VIAL MATE ADAPTER 1 EACH in NS 250 ML IV SCH (22:30)
[2021-07-29] VITALS (8 sets, daily range): BP systolic 98–146; BP diastolic 54–73
[2021-07-29] MEDS: PIPERACILLIN/TAZOBACTAM SOD 4.5 GM in D5W MINI-BAG PLUS 50 ML IV SCH ×4 (04:10→22:01)
[2021-07-29 06:36] LABS: BASO % 0.1 % (0.0-1.0); HEMATOCRIT 30.5 % (42.0-52.0); HEMOGLOBIN 9.3 g/dl (13.5-17.5); LYMPH # 0.8 10^3/uL (1.5-5.0); LYMPH % 8.3 % (24.0-44.0); MEAN CORPUSCULAR HEMOGLOBIN 21.2 pg (27.0-33.0); MEAN CORPUSCULAR HGB CONC 30.5 g/dl (32.0-36.5); MEAN CORPUSCULAR VOLUME 69.5 fl (80.0-96.0); MONO % 10.9 % (2.0-8.0); NEUTROPHILS # 7.6 10^3/uL (1.5-8.5); NEUTROPHILS % 80.1 % (36.0-66.0); PLATELET COUNT, AUTOMATED 258 10^3/uL (150-450); RED BLOOD COUNT 4.39 10^6/uL (4.30-6.10); WHITE BLOOD COUNT 9.4 10^3/uL (4.0-10.0)
[2021-07-29 06:53] LABS: ALT/SGPT 116 U/L (12-78); BILIRUBIN,TOTAL 0.3 MG/DL (0.2-1.0); BLOOD UREA NITROGEN 22 MG/DL (7-18); CALCIUM LEVEL 8.3 MG/DL (8.8-10.2); CARBON DIOXIDE LEVEL 27 MEQ/L (21-32); CHLORIDE LEVEL 106 MEQ/L (98-107); CREATININE FOR GFR 0.43 MG/DL (0.70-1.30); GLOMERULAR FILTRATION RATE > 60.0 (>42); GLUCOSE, FASTING 82 MG/DL (70-100); MAGNESIUM LEVEL 2.2 MG/DL (1.8-2.4); SODIUM LEVEL 140 MEQ/L (136-145); TOTAL PROTEIN 5.6 GM/DL (6.4-8.2)
[2021-07-29] MEDS: SYMBICORT 160/4.5MCG INHALER 6GM INH SCH ×2 (07:19→20:00)
[2021-07-29] MEDS: BUDESONIDE 0.5 MG/2 ML INHALATION SUSPENSION NEB SCH ×2 (07:19→20:14)
[2021-07-29] MEDS: LEVALBUTEROL 1.25 MG/0.5 ML CONCENTRATE NEB INH SCH ×4 (07:19→20:14)
[2021-07-29] MEDS: MIDODRINE 5 MG TAB PO SCH ×3 (08:55→16:03)
[2021-07-29] MEDS: OCUVITE 1 TAB PO SCH (09:04)
[2021-07-29] MEDS: predniSONE 20 MG TAB PO SCH (09:04)
[2021-07-29] MEDS: ACETAMINOPHEN TAB 650MG DOSE (2X325MG) PO PRN (09:05)
[2021-07-29] MEDS: guaiFENesin ER 600 MG TAB PO SCH ×2 (09:05→21:59)
[2021-07-29] MEDS: ATORVASTATIN 10 MG TAB PO SCH (09:06)
[2021-07-29] MEDS: SOLIFENACIN 5 MG TAB PO SCH (09:06)
[2021-07-29] MEDS: ENOXAPARIN 40MG/0.4ML SYRINGE (J1650 PER 10MG) SC SCH (09:08)
[2021-07-29] MEDS: VANCOMYCIN HCL 750 MG, VIAL MATE ADAPTER 1 EACH in NS 250 ML IV SCH ×2 (11:21→23:21)
[2021-07-29] MEDS ORDERED: SYMB16INH INH (14:19)
[2021-07-29] MEDS ORDERED: DOXY-342 PO (14:19)
[2021-07-29] MEDS ORDERED: LEVO750T14 PO (14:19)
[2021-07-29] MEDS ORDERED: MIDO10TA PO (14:19)
--- NOTE | 2021-07-29 17:06 | IPNPDOC ---
Date Seen The patient was seen on 07/29/21. Progress Note SUBJECTIVE: Patient seen examined at bedside. Back to 2L as baseline. States he feels fatigued. Cough improving. OBJECTIVE PHYSICAL EXAMINATION: VITAL SIGNS: please see below General: NAD, comfortable HEENT: PERRLA, EOMI, sclerae clear Neck: supple, normal ROM, no JVD Respiratory: lungs CTAB, no wheeze, no rales, no crackles CVS: RRR, normal S1, S2, no murmurs Abdo: soft, no masses, no hepatosplenomegaly, BS+, no rebound tenderness Extremities: no edema, pulses 2+ MSK: no joint deformities, normal ROM Neuro: no focal neuro deficits, moving all 4 extremities, CN2-12 intact. Strength 5/5 in all 4 extremities. No nystagmus. Psych: calm, cooperative, AAO x 3 LABORATORY DATA, IMAGING STUDIES, MICROBIOLOGY: Please see below. DVT prophylaxis ordered?: Y ASSESSMENT AND PLAN: Patient is 76-year-old male with a past medical history of oxygen dependent COPD and 2 L of O2 at home, MARGARETTE, hypertension, prostate cancer in remission status post radiation therapy, dyslipidemia as well as recent admission for empyema and prior to that postobstructive pneumonia with parapneumonic effusion. The patient completed 2 days of vancomycin and Zosyn and was discharged on levofloxacin. He returns with 3-day history of worsening cough productive of yellow and green sputum. Patient is currently on 3 L of oxygen in the ER. His white count is 10.4. ABG showed respiratory alkalosis. She will be admitted to hospital service for the management of pneumonia. Pulmonology was consulted. Started on therapy for hospital associated pneumonia. PROBLEMS: Postobstructive pneumonia/effusion/empyema - patient does not meet SIRS criteria - requires 3L O2, baseline 2L at home - CXR shows stable consolidation in RLL, with worsening of consolidation in LL - CTA chest ordered. Check legionella ag, strep pneumo ag. - incentive spirometry, acapella ordered - pulmonology consult placed given 3 re-admission, d/w Dr. Vinson. - does not believe this to be acute COPD exacerbation, rather hospital associated pneumonia - blood cx growing gram positive cocci in cluster, 2nd bottle negative at 48 hrs. - repeat cultures obtained. - receive 1 day zosyn and levaquin - switch to zosyn and vancomycin, day 2 - obtain speech therapy eval for possible aspiration. Acute COPD exacerbation 2/2 infection - Will DC solumedrol on Dr. Vinson's recs - c/w home prednisone of 20 mg q2d, 10 mg q2d, alternating. - resume inhalers - follows with Dr. Thacker. Microcytic Hypochromic anemia - needs outpatient EGD and colonscopy upon DC Sarcopenia - BMI 17.9 - end stage COPD - dietary eval - complicating care. CODE STATUS: wishes to be full code. will d/w with code status when discharged/ Dispo: pending clinical improvement VS, I&O, 24H, Fishbone Vital Signs/I&O Vital Signs Date Time Temp Pulse Resp B/P (MAP) Pulse Ox O2 Delivery O2 Flow Rate FiO2 07/29/21 16:02 112/64 (80) 07/29/21 14:00 97.2 78 20 95 Nasal Cannula 2.0 I&O- Last 24 Hours up to 6 AM 07/29/21 06:00 Intake Total 2765 ml Output Total 925 ml Balance 1840 ml Laboratory Data 24H LABS Laboratory Tests 2 07/29/21 01:18: Bedside Glucose (Misc Panel) 96 07/29/21 05:48: Immature Granulocyte % (Auto) 0.6, Neutrophils (%) (Auto) 80.1H, Lymphocytes (%) (Auto) 8.3L, Monocytes (%) (Auto) 10.9H, Eosinophils (%) (Auto) 0.0, Basophils (%) (Auto) 0.1, Neutrophils # (Auto) 7.6, Lymphocytes # (Auto) 0.8L, Monocytes # (Auto) 1.0H, Eosinophils # (Auto) 0.0, Basophils # (Auto) 0.0, Nucleated Red Blood Cells % (auto) 0.0, Anion Gap 7L, Glomerular Filtration Rate > 60.0, C alcium Level 8.3L, Magnesium Level 2.2, Total Bilirubin 0.3, Aspartate Amino Transf (AST/SGOT) 62H, Alanine Aminotransferase (ALT/SGPT) 116H, Alkaline Phosphatase 75, Total Protein 5.6L, Albumin 2.0L, Albumin/Globulin Ratio 0.6 07/29/21 09:41: Vancomycin Level Trough 11.6 CBC/BMP Laboratory Tests 07/29/21 05:48 Microbiology Microbiology 07/29/21 Blood Culture, Received Pending 07/29/21 Blood Culture, Received Pending 07/28/21 Gram Stain - Final, Resulted 07/28/21 Sputum Culture, Resulted Pending 07/27/21 Respiratory Virus Panel (PCR) ([facility]ORTES) - Final, Complete 07/27/21 Blood Culture - Preliminary, Resulted No Growth after 48 hours. All Specime... 07/27/21 Blood Culture - Preliminary, Resulted MAKENZIE ROCHE MD Jul 29, 2021 17:06
[2021-07-29] MEDS: DOCUSATE SODIUM 100MG CAPSULE PO SCH (21:59)
[2021-07-29] MEDS: LORazepam 0.5 MG TAB PO PRN (22:26)
[2021-07-30] MEDS: PIPERACILLIN/TAZOBACTAM SOD 4.5 GM in D5W MINI-BAG PLUS 50 ML IV SCH ×3 (04:28→16:02)
[2021-07-30 06:00] VITALS: BP 114/71
[2021-07-30 06:37] LABS: BASO % 0.1 % (0.0-1.0); EOS % 0.1 % (0.0-3.0); HEMATOCRIT 31.6 % (42.0-52.0); HEMOGLOBIN 9.7 g/dl (13.5-17.5); LYMPH # 1.1 10^3/uL (1.5-5.0); LYMPH % 14.2 % (24.0-44.0); MEAN CORPUSCULAR HEMOGLOBIN 21.3 pg (27.0-33.0); MEAN CORPUSCULAR HGB CONC 30.7 g/dl (32.0-36.5); MEAN CORPUSCULAR VOLUME 69.5 fl (80.0-96.0); MONO # 0.9 10^3/uL (0.0-0.8); MONO % 11.9 % (2.0-8.0); NEUTROPHILS # 5.5 10^3/uL (1.5-8.5); NEUTROPHILS % 72.9 % (36.0-66.0); PLATELET COUNT, AUTOMATED 240 10^3/uL (150-450); RED BLOOD COUNT 4.55 10^6/uL (4.30-6.10); WHITE BLOOD COUNT 7.6 10^3/uL (4.0-10.0)
[2021-07-30 07:01] LABS: ALBUMIN 2.2 GM/DL (3.2-5.2); ALT/SGPT 124 U/L (12-78); BILIRUBIN,TOTAL 0.3 MG/DL (0.2-1.0); BLOOD UREA NITROGEN 18 MG/DL (7-18); CALCIUM LEVEL 8.3 MG/DL (8.8-10.2); CARBON DIOXIDE LEVEL 27 MEQ/L (21-32); CHLORIDE LEVEL 106 MEQ/L (98-107); CREATININE FOR GFR 0.57 MG/DL (0.70-1.30); GLOMERULAR FILTRATION RATE > 60.0 (>42); GLUCOSE, FASTING 70 MG/DL (70-100); MAGNESIUM LEVEL 2.1 MG/DL (1.8-2.4); POTASSIUM SERUM 3.9 MEQ/L (3.5-5.1); SODIUM LEVEL 139 MEQ/L (136-145); TOTAL PROTEIN 5.7 GM/DL (6.4-8.2)
[2021-07-30] MEDS: SYMBICORT 160/4.5MCG INHALER 6GM INH SCH ×2 (07:53→18:09)
[2021-07-30] MEDS: LEVALBUTEROL 1.25 MG/0.5 ML CONCENTRATE NEB INH SCH ×4 (07:54→18:09)
[2021-07-30] MEDS: BUDESONIDE 0.5 MG/2 ML INHALATION SUSPENSION NEB SCH ×2 (07:54→18:09)
[2021-07-30] MEDS: guaiFENesin ER 600 MG TAB PO SCH ×2 (10:01→21:05)
[2021-07-30] MEDS: predniSONE 10 MG TAB PO SCH (10:01)
[2021-07-30] MEDS: SOLIFENACIN 5 MG TAB PO SCH (10:02)
[2021-07-30] MEDS: OCUVITE 1 TAB PO SCH (10:02)
[2021-07-30] MEDS: MIDODRINE 5 MG TAB PO SCH ×3 (10:02→16:01)
[2021-07-30] MEDS: ENOXAPARIN 40MG/0.4ML SYRINGE (J1650 PER 10MG) SC SCH (10:02)
[2021-07-30] MEDS: VANCOMYCIN HCL 750 MG, VIAL MATE ADAPTER 1 EACH in NS 250 ML IV SCH (11:27)
[2021-07-30] MEDS: ATORVASTATIN 10 MG TAB PO SCH (12:36)
[2021-07-30 14:36] VITALS: BP 107/70
[2021-07-30] MEDS ORDERED: LORazepam 0.5 MG TAB PO ONE (15:15)
[2021-07-30] MEDS ORDERED: LevoFLOXacin 750 MG TABLET PO SCH (18:00)
--- NOTE | 2021-07-30 20:04 | IPNPDOC ---
Date Seen The patient was seen on 07/30/21. Progress Note SUBJECTIVE: Patient seen examined at bedside. Back to 2L as baseline. States he feels fatigued. Cough improving. OBJECTIVE PHYSICAL EXAMINATION: VITAL SIGNS: please see below General: NAD, comfortable HEENT: PERRLA, EOMI, sclerae clear Neck: supple, normal ROM, no JVD Respiratory: lungs CTAB, no wheeze, no rales, no crackles CVS: RRR, normal S1, S2, no murmurs Abdo: soft, no masses, no hepatosplenomegaly, BS+, no rebound tenderness Extremities: no edema, pulses 2+ MSK: no joint deformities, normal ROM Neuro: no focal neuro deficits, moving all 4 extremities, CN2-12 intact. Strength 5/5 in all 4 extremities. No nystagmus. Psych: calm, cooperative, AAO x 3 LABORATORY DATA, IMAGING STUDIES, MICROBIOLOGY: Please see below. DVT prophylaxis ordered?: Y ASSESSMENT AND PLAN: Patient is 76-year-old male with a past medical history of oxygen dependent COPD and 2 L of O2 at home, MARGARETTE, hypertension, prostate cancer in remission status post radiation therapy, dyslipidemia as well as recent admission for empyema and prior to that postobstructive pneumonia with parapneumonic effusion. The patient completed 2 days of vancomycin and Zosyn and was discharged on levofloxacin. He returns with 3-day history of worsening cough productive of yellow and green sputum. Patient is currently on 3 L of oxygen in the ER. His white count is 10.4. ABG showed respiratory alkalosis. She will be admitted to hospital service for the management of pneumonia. Pulmonology was consulted. Started on therapy for hospital associated pneumonia. PROBLEMS: Postobstructive pneumonia/effusion/empyema - patient does not meet SIRS criteria - requires 3L O2, baseline 2L at home - CXR shows stable consolidation in RLL, with worsening of consolidation in LL - CTA chest ordered. Check legionella ag, strep pneumo ag. - incentive spirometry, acapella ordered - pulmonology consult placed given 3 re-admission, d/w Dr. Vinson. - does not believe this to be acute COPD exacerbation, rather hospital associated pneumonia - blood cx growing gram positive cocci in cluster, 2nd bottle negative at 48 hrs. - repeat cultures obtained. - receive 2 days zosyn and levaquin, converted to vanco and levaquin - obtain speech therapy eval for possible aspiration. - ID consult placed. Concern for fungal infection. Repeat Fungicell, aspergillus, cryptococcus, AFB sputum - d/w Dr. Miguel, JESUSITA zosyn. C/w levaquin only. Acute COPD exacerbation 2/2 infection - Will DC solumedrol on Dr. Vinson's recs - c/w home prednisone of 20 mg q2d, 10 mg q2d, alternating. - resume inhalers - follows with Dr. Thacker. Microcytic Hypochromic anemia - needs outpatient EGD and colonscopy upon DC Sarcopenia - BMI 17.9 - end stage COPD - dietary eval - complicating care. CODE STATUS: wishes to be full code. will d/w with code status when discharged/ Dispo: pending clinical improvement VS, I&O, 24H, Fishbone Vital Signs/I&O Vital Signs Date Time Temp Pulse Resp B/P (MAP) Pulse Ox O2 Delivery O2 Flow Rate FiO2 07/30/21 14:36 97.7 66 18 107/70 (82) 93 Nasal Cannula 2.0 I&O- Last 24 Hours up to 6 AM 07/30/21 06:00 Intake Total 1440 ml Output Total 0 ml Balance 1440 ml Laboratory Data 24H LABS Laboratory Tests 2 07/30/21 05:59: Immature Granulocyte % (Auto) 0.8, Neutrophils (%) (Auto) 72.9H, Lymphocytes (%) (Auto) 14.2L, Monocytes (%) (Auto) 11.9H, Eosinophils (%) (Auto) 0.1, Basophils (%) (Auto) 0.1, Neutrophils # (Auto) 5.5, Lymphocytes # (Auto) 1.1L, Monocytes # (Auto) 0.9H, Eosinophils # (Auto) 0.0, Basophils # (Auto) 0.0, Nucleated Red Blood Cells % (auto) 0.0, Anion Gap 6L, Glomerular Filtration Rate > 60.0, Calcium Level 8.3L, Magnesium Level 2.1, Total Bilirubin 0.3, Aspartate Amino Transf (AST/SGOT) 55H, Alanine Aminotransferase (ALT/SGPT) 124H, Alkaline Phosphatase 69, Total Protein 5.7L, Albumin 2.2L, Albumin/Globulin Ratio 0.6 07/30/21 10:22: Vancomycin Level Trough 12.8 07/30/21 13:31: 07/30/21 13:32: 07/30/21 17:21: 07/30/21 18:03: CBC/BMP Laboratory Tests 07/30/21 05:59 Microbiology Microbiology 07/30/21 Acid Fast Stain, Received Pending 07/30/21 Mycobacterial Culture, Received Pending 07/29/21 Blood Culture - Preliminary, Resulted No growth after 24 hours . All specim... 07/29/21 Blood Culture - Preliminary, Resulted No growth after 24 hours . All specim... 07/28/21 Gram Stain - Final, Complete 07/28/21 Sputum Culture - Final, Complete Yeast Like Organism 07/27/21 Respiratory Virus Panel (PCR) ([facility]ORTES) - Final, Complete 07/27/21 Blood Culture - Preliminary, Resulted No Growth after 72 hours. All specime... 07/27/21 Blood Culture - Preliminary, Resulted MAKENZIE ROCHE MD Jul 30, 2021 20:04
[2021-07-30] MEDS: LORazepam 0.5 MG TAB PO PRN (21:04)
[2021-07-30] MEDS: DOCUSATE SODIUM 100MG CAPSULE PO SCH (21:04)
[2021-07-30 22:00] VITALS: BP 112/69
[2021-07-31 06:00] VITALS: BP 113/77
--- NOTE | 2021-07-31 06:03 | CR ---
CONSULTATION DATE: 07/30/2021 REASON FOR CONSULTATION: Asked to consult by Dr. Ochoa for evaluation of recurrent pneumonia in a patient with chronic obstructive pulmonary disease (COPD). HISTORY OF PRESENT ILLNESS: Mr. Cheek is a 76-year-old gentleman with a history of chronic obstructive pulmonary disease (COPD), prednisone and oxygen dependent. The patient was hospitalized in April, June and July with recurrent symptoms of pneumonia, increased cough and shortness of breath. Most recently he was admitted on the with complaint of worsening cough and shortness of breath. The patient had a history of prostate cancer, status post radiation, dyslipidemia, chronic obstructive pulmonary disease (COPD) on 2 liters oxygen and prednisone at 20 mg alternating with 10 mg. The patient was recently discharged home on levofloxacin on June 22 for a 10 day course. He had a follow up chest x-ray which was concerning for pneumonia; and since he had increasing shortness of breath, he was admitted. The patient feels better. His oxygen is at 2 liters nasal cannula. He is on his prednisone 20 mg, alternating with 10 mg, which is his baseline. He follows up usually with Dr. Thacker. He wants to go home. I got a call from Dr. Ochoa to discuss his recurrent infection; and while reviewing his previous hospitalization, he had a beta 1,3 glucan assay that was positive for 171 on 04/29/2021. His sputum cultures are all positive for curtis albicans and yeast-like organism. He never grew any bacteria. AFB smear and culture done on 04/29 was negative pleural fluid. AFB, fungal with urine culture were also negative on 04/30 after he had a thoracentesis for pleural effusion. Pleural fluid has 5342 white cells with 81 PMNs and 18% mononuclear cells, but the culture was negative. On admission, he had two sets of blood cultures, 07/27. One out of two is positive for Staphylococcus and gram-positive cocci, looks like streptococcus. The second culture was negative 07/29, two sets were negative. The patient has received vancomycin and Zosyn this admission and his procalcitonin level was 0.14. PAST MEDICAL HISTORY: Significant for chronic obstructive pulmonary disease (COPD), chronic oxygen dependent on 2 liters, obstructive sleep apnea, unable to tolerate CPAP, history of hypertension, prostate cancer, status post radiation, dyslipidemia, diverticulosis. PAST SURGICAL HISTORY: Right shoulder surgery with replacement, appendectomy, pilonidal cystectomy, polypectomy. 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 He quit smoking 25 years ago, smoked for 50 years. Father of lung disease. REVIEW OF SYSTEMS: He denied any fever, chills. He has decreased appetite and lost about 30 pounds in the past three months. He denied any chest pain, orthopnea. He does have chronic shortness of breath and chronic cough. He denies any nausea, vomiting or diarrhea. PHYSICAL EXAMINATION: He is a frail gentleman in no acute distress. Alert and oriented x3. Talks in full sentences. HEENT: No adenopathy. No jugular venous distention (JVD). Respirations: Crackles at the bases, more prominent on the right base. Some expiratory rhonchi, no wheezes. Heart: Normal S1, S2. No murmurs, rubs or gallops. Abdomen: Soft, nontender, no hepatosplenomegaly. Extremities: No clubbing, cyanosis or edema. Upper extremities: Multiple ecchymosis on both arms. Neurologic examination: Grossly normal. Alert and oriented x3. LABORATORY DATA: Sodium 139, potassium 3.9, chloride 106, bicarbonate 27, BUN 18, creatinine 0.57, glucose 70, calcium 8.3, magnesium 2.1, AST 55, ALT 124, alkaline phosphatase 69, total protein 5.7. Vancomycin trough 12.8. SARS COVID 2 negative. Legionaire antibody is negative. Pneumococcal urine antigen pending. Histoplasma antigen pending. Sputum culture this admission again had yeast-like organism. Respiratory panel was negative. Blood cultures no growth after 48 hours on 07/29. CT angiogram done on 07/27 showed moderate to severe central lobular emphysematous changes throughout both lungs with multiple irregular nodules, both inflammatory, with multifocal pneumonitis, multiple dilated bronchi secondary to bronchiectasis. MEDICATIONS: Vancomycin 750 mg IV q 12 hours, prednisone 20 mg alternating with 10 mg every other day, multivitamin two tablets daily, Vesicare 10 mg by mouth daily, Lipitor 10 mg by mouth daily, Lovenox 40 mg subcutaneous daily, midodrine three times a day, Colace 100 mg by mouth every night at bedtime, Mucinex 1200 mg by mouth twice a day, Xopenex 1.25 mg q.i.d., lorazepam 0.5 mg every night at bedtime, albuterol, Atrovent nebulizers as needed. IMPRESSION: This is a 76-year-old gentleman with a history of chronic obstructive pulmonary disease (COPD), oxygen and steroid dependent, who has had three different hospitalizations with chronic obstructive pulmonary disease (COPD) exacerbation, pneumonia and emphysema that required thoracentesis. All hospitalization cultures had not growth significant except for curtis albicans. The pleural fluid had no growth either. He had one AFB smear and culture that was done on the first hospitalization in April AFB/ fungal and bacterial pleural fluid was negative as well at that time. I am concerned more of a non-tuberculous mycobacteria with multifocal nodular opacities and his bronchiectasis history or a fungal pneumonia with his elevated Fungitell Assay from previous hospitalization. PLAN Suggest repeating Fungitell Assay to make sure he does not have fungal pneumonia. Will discuss the case with Dr. Thacker. Discontinue IV vancomycin and Zosyn. This is not typical bacterial pneumonia. His procalcitonin was 0.14. Could be an atypical pathogen, agree to give him a 7 day course of levofloxacin. The patient needs an outpatient follow up with ID. If sputum AFB smear and culture grow nontuberculous mycobacteria, then he will be treated with three-drug regimen depending on pathogen. Discontinue his IV he has no IV access and he will be switched to oral antibiotics. IGNACIO
[2021-07-31 06:52] LABS: BASO % 0.1 % (0.0-1.0); EOS % 0.4 % (0.0-3.0); HEMATOCRIT 32.5 % (42.0-52.0); LYMPH # 1.1 10^3/uL (1.5-5.0); LYMPH % 14.1 % (24.0-44.0); MEAN CORPUSCULAR HEMOGLOBIN 21.3 pg (27.0-33.0); MEAN CORPUSCULAR HGB CONC 30.8 g/dl (32.0-36.5); MEAN CORPUSCULAR VOLUME 69.3 fl (80.0-96.0); MONO # 1.1 10^3/uL (0.0-0.8); MONO % 14.1 % (2.0-8.0); NEUTROPHILS # 5.2 10^3/uL (1.5-8.5); NEUTROPHILS % 70.1 % (36.0-66.0); PLATELET COUNT, AUTOMATED 227 10^3/uL (150-450); RED BLOOD COUNT 4.69 10^6/uL (4.30-6.10); WHITE BLOOD COUNT 7.5 10^3/uL (4.0-10.0)
[2021-07-31 07:14] LABS: ALBUMIN 2.2 GM/DL (3.2-5.2); ALT/SGPT 125 U/L (12-78); BILIRUBIN,TOTAL 0.2 MG/DL (0.2-1.0); BLOOD UREA NITROGEN 17 MG/DL (7-18); CALCIUM LEVEL 8.5 MG/DL (8.8-10.2); CARBON DIOXIDE LEVEL 28 MEQ/L (21-32); CHLORIDE LEVEL 105 MEQ/L (98-107); CREATININE FOR GFR 0.44 MG/DL (0.70-1.30); GLOMERULAR FILTRATION RATE > 60.0 (>42); GLUCOSE, FASTING 71 MG/DL (70-100); MAGNESIUM LEVEL 2.2 MG/DL (1.8-2.4); POTASSIUM SERUM 4.2 MEQ/L (3.5-5.1); SODIUM LEVEL 139 MEQ/L (136-145); TOTAL PROTEIN 5.8 GM/DL (6.4-8.2)
[2021-07-31] MEDS: LEVALBUTEROL 1.25 MG/0.5 ML CONCENTRATE NEB INH SCH (07:36)
[2021-07-31] MEDS: BUDESONIDE 0.5 MG/2 ML INHALATION SUSPENSION NEB SCH (07:36)
[2021-07-31] MEDS: SYMBICORT 160/4.5MCG INHALER 6GM INH SCH (07:36)
[2021-07-31] MEDS: guaiFENesin ER 600 MG TAB PO SCH (08:44)
[2021-07-31] MEDS: OCUVITE 1 TAB PO SCH (08:44)
[2021-07-31] MEDS: predniSONE 20 MG TAB PO SCH (08:44)
[2021-07-31] MEDS: MIDODRINE 5 MG TAB PO SCH (08:44)
[2021-07-31] MEDS: ATORVASTATIN 10 MG TAB PO SCH (08:44)
[2021-07-31] MEDS: ENOXAPARIN 40MG/0.4ML SYRINGE (J1650 PER 10MG) SC SCH (08:45)
[2021-07-31] MEDS: SOLIFENACIN 5 MG TAB PO SCH (08:48)
[2021-07-31] MEDS: ACETAMINOPHEN TAB 650MG DOSE (2X325MG) PO PRN (08:48)
[2021-07-31 08:50] VITALS: BP 114/75
--- NOTE | 2021-07-31 11:31 | DS.PDOC ---
Discharge Summary General Date of Admission Jul 27, 2021 at 17:56 Date of Discharge 07/31/2021 Discharge Summary PROCEDURES PERFORMED DURING STAY: [None]. ADMITTING DIAGNOSES / DISCHARGE DIAGNOSES: Postobstructive pneumonia/effusion/empyema Staphylococcus epidermidis/Streptococcus salivarus - likely 2/2 contaminant Acute COPD exacerbation 2/2 infection Chronic hypoxic respiratory failure Microcytic Hypochromic anemia Sarcopenia DVT prophylaxis COMPLICATIONS/CHIEF COMPLAINT: Shortness of breath HISTORY OF PRESENT ILLNESS: Patient is a 76-year-old male with a PMHx of COPD (on 2L of O2), Ольга, HTN, DLP, Prostate CA (in remission; s/p radiation therapy) whose had a recent admission for empyema, prior to that and postobstructive pneumonia with parapneumonic effusion. Patient was admitted to hospital service for further evaluation and treatment. Patient was seen and examined at the bedside currently reports that he is not experiencing any significant cough. Denies any short of breath, has not spent any chest pain or palpitations. Has not experience any nausea, vomiting, abdominal pain, diarrhea, or urinary discomfort. HOSPITAL COURSE: Postobstructive pneumonia/effusion/empyema - Clinically patient does not report any significant shortness of breath or productive cough - Remains hemodynamically stable and afebrile - No leukocytosis - Sputum culture 07/28: Yeast-like organisms - Imaging noted below - c/w Acapella / Incentive spirometry - c/w Levofloxacin; s/p Zosyn and Vancomycin - Pulmonology and infectious disease has been called on consultation; will have outpatient follow-up on discharge Staphylococcus epidermidis/Streptococcus salivarus - likely 2/2 contaminant - Blood cultures 07/27: (1 of 2): positive - Repeat cultures 07/29: negative at 24 hours - ID on consultation; appreciate their input Acute COPD exacerbation 2/2 infection - Clinically, patient's breathing has had improvement - s/p Solumedrol - c/w Prednisone taper on discharge - Will have outpatient follow-up with pulmonology on discharge Chronic hypoxic respiratory failure - Patient uses 2 L of [place] oxygen at baseline Microcytic Hypochromic anemia -Will have outpatient follow up with PCP for EGD and colonoscopy Sarcopenia - BMI 17.9 - end stage COPD - Complicating medical care DVT prophylaxis - c/w Lovenox DISCHARGE MEDICATIONS: Please see below. ALLERGIES: Please see below. PHYSICAL EXAMINATION ON DISCHARGE: Vitals (See below) General: Lying in bed, appears comfortable, AAOx3 HEENT: NC, AT CVS: +S1S2 Lungs: Fair air entry b/l, no wheezing, rales or rhonchi Abdomen: Soft, ND, NT Extremities: no evidence of edema, - Calf tenderness LABORATORY DATA: Please see below. IMAGING: CXR 07/27: Right lower lung infiltrate is essentially unchanged. Mild increase in left lower lung infiltrate with improved left pleural opacity. CTA chest 07/27: 1. Multiple irregular pulmonary parenchymal opacities which have developed in the interval between most recent prior examination. These include new foci in the posterior segment of the right upper lobe, posterior segment of the left upper lobe, lingular lobe and right lower lobe. Numerous other parenchymal opacities are stable in comparison to the prior study and several foci have resolved. Findings consistent with multifocal pneumonitis. 2. Also noted are multiple dilated bronchial structures secondary to bronchiectasis with foci of mucous plugging. Associated thickened airways consistent with bronchitis. 3. A stellate process in the right lower lobe has decreased in size in comparison to the prior study despite worrisome characteristics. Continue interval follow-up suggested. 4. Multiple smooth bordered peripheral pulmonary parenchymal nodules are stable likely postinflammatory. 5. There is no aortic dissection or aneurysm. 6. COPD. 7. There are no pulmonary emboli. ACTIVITY: [As tolerated]. DISCHARGE PLAN: Follow-up with primary care provider, pulmonology, infectious disease within the next 7 days Remain compliant with treatment plan and medications Return to the ER if you experience any problems DISPOSITION: Home DISCHARGE CONDITION: [Stable]. TIME SPENT ON DISCHARGE: 35 minutes. Vital Signs/I&Os Vital Signs Date Time Temp Pulse Resp B/P (MAP) Pulse Ox O2 Delivery O2 Flow Rate FiO2 07/31/21 08:50 114/75 (88) 07/31/21 06:00 97.7 71 19 94 Nasal Cannula 2.0 I&O- Last 24 Hours up to 6 AM 07/31/21 06:00 Intake Total 2050 ml Output Total 100 ml Balance 1950 ml Laboratory Data Labs 24H Laboratory Tests 2 07/30/21 13:31: 07/30/21 13:32: 07/30/21 17:21: Methicillin-Resist S.aureus DNA PCR NOT DETECTED 07/30/21 18:03: 07/31/21 05:58: Immature Granulocyte % (Auto) 1.2, Neutrophils (%) (Auto) 70.1H, Lymphocytes (%) (Auto) 14.1L, Monocytes (%) (Auto) 14.1H, Eosinophils (%) (Auto) 0.4, Basophils (%) (Auto) 0.1, Neutrophils # (Auto) 5.2, Lymphocytes # (Auto) 1.1L, Monocytes # (Auto) 1.1H, Eosinophils # (Auto) 0.0, Basophils # (Auto) 0.0, Nucleated Red Blood Cells % (auto) 0.0, Anion Gap 6L, Glomerular Filtration Rate > 60.0, Calcium Level 8.5L, Magnesium Level 2.2, Total Bilirubin 0.2, Aspartate Amino Transf (AST/SGOT) 46H, Alanine Aminotransferase (ALT/SGPT) 125H, Alkaline Phosphatase 71, Total Protein 5.8L, Albumin 2.2L, Albumin/Globulin Ratio 0.6 CBC/BMP Laboratory Tests 07/31/21 05:58 Microbiology Microbiology 07/30/21 Acid Fast Stain, Received Pending 07/30/21 Mycobacterial Culture, Received Pending 07/30/21 Fungal Smear, Received Pending 07/30/21 Fungal Culture, Received Pending 07/29/21 Blood Culture - Preliminary, Resulted No growth after 24 hours . All specim... 07/29/21 Blood Culture - Preliminary, Resulted No growth after 24 hours . All specim... 07/28/21 Gram Stain - Final, Complete 07/28/21 Sputum Culture - Final, Complete Yeast Like Organism 07/27/21 Respiratory Virus Panel (PCR) (CORTES) - Final, Complete 07/27/21 Blood Culture - Preliminary, Resulted No Growth after 72 hours. All specime... 07/27/21 Blood Culture - Final, Complete Staphylococcus Epidermidis Streptococcus Salivarius Discharge Medications Scheduled Atorvastatin Calcium (Atorvastatin Calcium) 10 Mg Tablet, 10 MG PO DAILY, (Reported) Budesonide (Pulmicort) 0.5 Mg/2 Ml [place], 0.5 MG NEB BID, (Reported) Budesonide/Formoterol (Symbicort 160-4.5 Mcg Inhaler) 60 Puff/Inhaler Aers, 2 PUFF INH BID Docusate Sodium (Colace) 100 Mg Capsule, 100 MG PO QHS, (Reported) Guaifenesin (Mucinex) 1,200 Mg Tab.er.12h, 1,200 MG PO BID, (Reported) Levalbuterol HCl (Levalbuterol HCl) 1.25 Mg/3 Ml Neb, 1.25 MG INH QID, (Reported) Midodrine HCl (Midodrine HCl) 10 Mg Tablet, 10 MG PO TID 0800, 1200, 1600 Prednisone (Prednisone) 20 Mg Tablet, 20 MG PO Q2D, (Reported) ALTERNATE WITH 10MG TAB Prednisone (Prednisone) 20 Mg Tablet, 10 MG PO Q2D, (Reported) ALTERNATE WITH 20MG TAB Solifenacin Succinate (Vesicare) 10 Mg Tablet, 10 MG PO DAILY, (Reported) Vit A/Vit C/Vit E/Zinc/Copper (Preservision Areds Softgel) 1 Each Capsule, 2 CAP PO DAILY, (Reported) [Prevagen] , 1 CAP PO DAILY, (Reported) levoFLOXacin (levoFLOXacin) 750 Mg Tablet, 750 MG PO DAILY Scheduled PRN Fluticasone Propionate (Fluticasone Propionate) 16 Gm Teller.susp, 1 SPRAY NA BID PRN for NASAL CONGESTION, (Reported) Ipratropium/Albuterol Sulfate (Combivent Respimat 20-100 Mcg) 1 Aer Aer, 1 PUFF INH QID PRN for SHORTNESS OF BREATH, (Reported) Allergies Coded Allergies: No Known Allergies (Unverified , 04/03/21) MARIBEL VILLAFUERTE MD Jul 31, 2021 11:31
[2021-07-31 23:08] LABS: L. PNEUMOPHILA (1,3,4,5,6,8) <0.91 OD ratio (0.00-0.90)
[2021-08-01 17:10] LABS: BODY FLUID CULTURE Not indicated. (.); ORGANISM ID Not indicated. (.); SPECIMEN SOURCE Urine (.); URINE STREP PNEUMONIAE ANTIGEN Negative (Negative)
[2021-08-02 13:08] LABS: CRYPTOCOCCUS ANTIGEN SER Negative (Negative)
[2021-08-02 14:13] LABS: HISTOPLASMA GAL'MANNAN AG UR <0.5 (<0.5 ng/mL)
== END 2021-07-31 11:31 | disposition home or self-care (01) | DRG 177 ==
LOC: M ED 13:16 → M ED INP 17:56 → M MSPAV 20:45
PROVIDERS: ADMIT Family Medicine; ATTEND Internal Medicine
DX: B37.1 Pulmonary candidiasis (principal); J18.9 Pneumonia, unspecified organism; J90 Pleural effusion, not elsewhere classified; J44.0 Chronic obstructive pulmonary disease with (acute) lower respiratory infection; J96.11 Chronic respiratory failure with hypoxia; Z68.1 Body mass index [BMI] 19.9 or less, adult; D50.9 Iron deficiency anemia, unspecified; G47.33 Obstructive sleep apnea (adult) (pediatric); Z92.3 Personal history of irradiation; Z85.46 Personal history of malignant neoplasm of prostate; Z99.81 Dependence on supplemental oxygen; Z79.899 Other long term (current) drug therapy; Z79.52 Long term (current) use of systemic steroids; Z87.891 Personal history of nicotine dependence; Z91.19 Patient's noncompliance with other medical treatment and regimen; E78.5 Hyperlipidemia, unspecified; K57.30 Diverticulosis of large intestine without perforation or abscess without bleeding

== ENCOUNTER → 2021-08-22 | Outpatient (CLI) | payer MEDICARE, OTHER ==
[~2021-08-22] MED LIST changes: +ATIV1TAB10 PO; +ATOR1TAB19 PO; +DOXY-342 PO
--- NOTE | 2021-08-22 15:00 | REP ---
INDICATION: ABN FINDING OF LUNG COMPARISON: 07/27/2021 TECHNIQUE: Axial noncontrast images from the thoracic inlet to the upper abdomen with coronal and sagittal reformations. This CT examination was performed using the following dose reduction techniques: Automated exposure control, adjustment of mA and/or kv according to the patient's size, and use of iterative reconstruction technique. FINDINGS: Advanced chronic COPD/emphysematous changes with scattered fibrosis and scarring is again noted. Superimposed patchy areas of consolidation along with significant bronchiectasis with mucous plugging to the bilateral lower lobes as well as areas of chronic consolidation with air bronchograms in the right middle lobe and lingula along with partially loculated pleural fluid along the left lung base are all relatively unchanged. Mediastinum demonstrates reactive adenopathy. Stable atherosclerotic changes to the thoracic aorta and coronary arteries noted with mild cardiomegaly and small amount of pericardial fluid. IMPRESSION: Advanced COPD/emphysematous changes with significant superimposed changes including areas of consolidation, partially loculated left effusion, patchy airspace disease, and mucous plugging unchanged. <Electronically signed by Umair Wallace > 08/22/21 [id number]
== END ==
LOC: M RAD 13:28
PROVIDERS: ATTEND Internal Medicine Pulmonary Disease
DX: R91.8 Other nonspecific abnormal finding of lung field (principal)

== ENCOUNTER → 2021-08-29 | Outpatient (REF) | payer MEDICARE, OTHER | LOC: M LAB REF 13:12 | PROVIDERS: ATTEND Internal Medicine Pulmonary Disease | DX: J44.9 Chronic obstructive pulmonary disease, unspecified (principal) ==

== ENCOUNTER 2021-09-10 11:43 | Emergency (ER) | payer MEDICARE, OTHER ==
--- OUTSIDE RECORDS SUMMARY | 2021-09-10 11:49 | CCD | Continuity of Care Document ---
Author Author Lab Kath, Shukri Newton Organization Unknown Address [address] [address] Phone Unavailable Care Team Providers Care Benefits Consulting Analyst Name Role Phone Bentley Thacker MD AUTM [phone] Arron Deras JR, MD AUTM Unavailable [facility] AUTM [phone] Trino Betancourt MD AUTM Raciel Gill MD AUTM [phone] Morales Jade MD AUTM [phone] Bhavin Stanton MD AUTM [phone] Guero Norman MD AUTM [phone] [facility] Physica AUTM [phone] [facility] Hea AUTM [phone] Problems Active Problems Provider Date Benign essential hypertension Arron Deras MD Onset: 0 06/05/2011 Pure hypercholesterolemia Arron Deras MD Onset: 06/05 Peripheral vascular disease Arron Deras MD Onset: Essential hypertension Arron Deras MD Onset: 06/05/20 11 Iron deficiency anemia Arron Deras MD Onset: 06/05/20 11 Pure hyperglyceridemia Arron Deras MD Onset: 06/05/20 11 History of polyp of colon Arron Deras MD Onset: 06/05 Asthma without status asthmaticus Arron Deras MD Onse t: 06/05/2011 Malignant tumor of prostate Arron Deras MD Onset: Obstructive sleep apnea syndrome Arron Deras MD Onset : 11/08/2011 Social History Type Date Description Comments Sex Unknown ETOH Use Currently consumes alcohol about 1 alcoholic beverage per week Tobacco Use Start: Unknown End: Unknown Patient is a former smoker SMOKED FOR 30 YRS 2 PACKS A DAY Allergies, Adverse Reactions, Alerts Description No Known Drug Allergies Medications Active Medications SIG Qnty Indications Ordering Provide r Date Ativan 0.5mg Tablets 1 Tab PO Daily/ prn 15tabs Trino Deras DO 07/10/2021 Bacid Capsules one by mouth qid HINA Penn JR 05/09/2021 Ferrous Sulfate 325(65Fe) mg Table ts 1 by mouth daily 60tabs Arron Deras MD 12/26/2020 Nystatin 562136Ilqf/ML Suspension swish and spit 5ml as needed twice a day for thrush 200ml Co llsandra Deras MD 06/23/2020 Pulmicort 0.5mg/2ML Suspension 2 puffs daily Arron Deras MD 05/19/2020 Mucinex DM Maximum Strength 60-1200mg Tablets ER 12HR 1 by mouth twice a day 30tabs Nurse #2 11/22 Acetaminophen 325mg Tablets 2 tabs by mouth as needed every 4 hours for pain or fever mdd=3 grams 100tabs Arron Deras MD 11/22/2019 Incruse Ellipta 62.5mcg/Inh Aeroso l inhale one puff by mouth daily 30units Arron Deras MD Areds twice a day Arron Deras MD Prednisone 10mg Tablets 10mg alt with 15mg 30tabs Arron Deras MD 07/08/2019 Ibuprofen 400mg Tablets take one tablet by mouth q6 hours as needed JESSICA Awad 02/18 Magnesium 400mg Tablets 1 by mouth qd JESSICA Awad 02/18/2017 Percocet 5-325mg Tablets 1 by mouth every 8 hour as needed pain 90tabs M54.31 Arron Deras MD 02/09 Fluticasone Propionate 50mcg/Act Suspension 2 sprays each nostril daily 1units Arron guerrier MD 11/30/2014 Combivent 103-18mcg/Act Aerosol 2 puffs qid 3units Arorn Deras MD 02/13/2010 Levalbuterol HCL 1.25mg/3ML Nebuli zer Use 1 Vial Via Nebulizer Every 8 Hours 1350units Arron guerrier MD 10/16/2009 Symbicort 160-4.5mcg/Act Aerosol 2 puff bid 3units Unknown Solifenacin Succinate 10mg Tablets take one tablet by mouth @8am Unknown 0 000 Midodrine HCL 10mg Tablets 1 by mouth by mouth three times a day 90tabs Arorn Deras MD Zithromax 250mg Tablets 1 talbets Mon, Weds and Fri Unknown Melatonin 10mg Capsules two tab by mouth one hour before bed Unknown History Medications Mirtazapine 7.5mg Tablets take one tablet by mouth at bedtime 30tabs Arron Deras MD 2020 - 07/06/2021 Diflucan 100mg Tablets 1 by mouth every day x 10 days 10tabs Arron Deras MD 06/19/2021 - 07/06/2021 Medications Administered in Office Medication SIG Qnty Indications Ordering Provider Date Covid-19 vaccine, Unspecified Inj ection Unknown 11/26/2020 Administration Of Flu Vaccine Inj ection JESSICA Awad 08/08/2015 Administration Of Flu Vaccine Inj ection Luciano Deleon D.O. 08/21 Administration Of Flu Vaccine Inj ection Arron Deras MD 08/27/2004 Administration Of Flu Vaccine Inj ection Arron Deras MD 08/16/2003 Administration Of Flu Vaccine Inj ermaion Arron Deras MD 10/01/2002 Immunizations CPT Code Status Date Vaccine Lot # U-Flu Given 07/20/2020 Influenza,Unspecified U-Flu Given 07/19/2019 Influenza,Unspecified 69897 Given 07/17/2018 Shingrix Zoster Vaccine (HZV), Recombinant, Subunit, Adjuvanted U-Flu Given 07/08/2018 Influenza,Unspecified 20483 Given 02/24/2018 Shingrix 24094 Given 10/21/2016 Pneumovax 23 [id number] U-PneuC Given 10/14/2015 Prevnar 13 [id number] Given 08/08/2015 Fluvirin Virus Vaccine [id number] 01 95038 Given 03/31/2008 Zoster Vaccine 99829 Given 08/18/2007 Influenza Virus Vaccine 48374 Given 10/09/2006 Influenza Virus Vaccine 71423 Given 09/26/2006 Pneumovax 23 37621 Given 08/21/2005 Influenza Virus Vaccine 62790 Given 08/27/2004 Influenza Virus Vaccine 29289 Given 08/16/2003 Influenza Virus Vaccine 18564 Given 10/01/2002 Influenza Virus Vaccine 97367 Given 05/25/1998 Tetanus Toxoid 83088 Refused 08/19/2018 Influenza Virus Vaccine, Quadrivalent (Cciiv4), Derived From Cell Vital Signs Date Vital Result Comment 07/06/2021 2:10pm BP Systolic 130 mmHg BP Diastolic 76 mmHg Heart Rate 84 /min Height 71 inches 5'11" Weight 134.00 lb O2 % BldC Oximetry 94 % 2 liters BMI (Body Mass Index) 18.7 kg/m2 06/19/2021 2:11pm BP Systolic 86 mmHg BP Diastolic 58 mmHg Heart Rate 96 /min Height 71 inches 5'11" Weight 135.00 lb O2 % BldC Oximetry 89 % 2 liters BMI (Body Mass Index) 18.8 kg/m2 Results Test Acquired Date Facility Test Result H/L Range Note Liver Function Profile 07/18/2021 [facility] Product Handler: [place] [address] [phone] Alk. Phosphatase 81 mg/dL 46 - 116 Total Bilirubin 0.3 mg/dL 0.2 - 1.0 Ast (Sgot) 33 U/L 15 - 37 Alt (SGPT) 69 U/L 12 - 78 Albumin 2.9 g/dL Low 3.4 - 5.0 Total Protein 6.6 g/dL 6.4 - 8.2 Direct Bilirubin 0.1 mg/dL 0.0 - 0.2 A/G Ratio 0.78 CALC Low 1.00 - 1.90 Complete Blood Count 07/18/2021 [facility] Product Handler: [place] [address] [phone] WBC 11.5 x10*3/UL High 4.1 - 10.9 1 RBC 5.26 x10*6/UL 4.20 - 6.30 Hemoglobin 11.7 g/dL Low 12.0 - 18.0 Hematocrit 36.5 % Low 37.0 - 51.0 MCV 69.4 fL Low 80.0 - 97.0 MCH 22.3 pg Low 26.0 - 32.0 MCHC 32.1 g/dL 31.0 - 38.0 RDW 15.6 % High 11.6 - 13.7 PLT 281 x10*3/UL 140 - 440 MPV 7.2 FL Low 7.8 - 11.0 Lymph % 5.0 % Low 10.0 - 58.5 Mid % 1.8 % 1.7 - 9.3 Neut % 93.2 % High 37.0 - 92.0 Lymph # 0.5 x10*3/UL Low 0.6 - 4.1 Mid # 0.2 x10*3/UL 0.1 - 0.6 Neut # 10.8 x10*3/UL High 2.0 - 7.8 Ua Dipstick Only 07/09/2021 [facility] Product Handler: [place] [address] [phone] Urine Color YELLOW Yellow Urine Appearance CLEAR Clear Urine PH 6.5 units 5.0 - 9.0 Urine Specific [place] 1.015 1.005 - 1.030 Urine Leukocytes NEGATIVE Negative Urine Blood NEGATIVE Negative Urine Protein NEGATIVE Negative -Trace Urine Glucose NEGATIVE mg/dL Negative Urine Nitrite NEGATIVE Negative Urine Ketone NEGATIVE mg/dL Negative Urine Bilirubin NEGATIVE Negative Urine Urobilinogen 0.2 mg/dL 0.2 - 1.0 Manual Differential 07/06/2021 [facility] nter [address] [place] [address] [phone] Neutrophils 88 % High 28-66 Lymphocytes 5 % Low 16-44 Monocytes 7 % High 0-5 Platelet Estimate NORMAL Normal Normal Complete Blood Count 07/06/2021 [facility] Product Handler: [place] [address] [phone] WBC 18.1 x10*3/UL High 4.1 - 10.9 2 RBC 4.93 x10*6/UL 4.20 - 6.30 Hemoglobin 11.4 g/dL Low 12.0 - 18.0 Hematocrit 34.4 % Low 37.0 - 51.0 MCV 69.8 fL Low 80.0 - 97.0 MCH 23.1 pg Low 26.0 - 32.0 MCHC 33.1 g/dL 31.0 - 38.0 RDW 16.3 % High 11.6 - 13.7 PLT 210 x10*3/UL 140 - 440 MPV 7.0 FL Low 7.8 - 11.0 Lymph % 3.0 % Low 10.0 - 58.5 Mid % 8.0 % 1.7 - 9.3 Neut % 89.0 % 37.0 - 92.0 Lymph # 0.5 x10*3/UL Low 0.6 - 4.1 Mid # 1.5 x10*3/UL High 0.1 - 0.6 Neut # 16.1 x10*3/UL High 2.0 - 7.8 Comprehensive Chem Profile 07/06/2021 [facility] Product Handler: Dr Arron [place], [place] [id number] [phone] Glucose 107 mg/dL High 74 - 99 3 BUN 28 mg/dL High 7 - 18 Creatinine 0.7 mg/dL 0.6 - 1.3 Sodium 137 mEq/L 136 - 145 Potassium 4.5 mEq/L 3.5 - 5.1 Chloride 104 mEq/L 98 - 107 Carbon Dioxide 31 mEq/L 21 - 32 Calcium 8.8 mg/dL 8.5 - 10.1 Alk. Phosphatase 82 mg/dL 46 - 116 Total Bilirubin 0.3 mg/dL 0.2 - 1.0 Ast (Sgot) 24 U/L 15 - 37 Alt (SGPT) 80 U/L High 12 - 78 Albumin 2.8 g/dL Low 3.4 - 5.0 Total Protein 6.8 g/dL 6.4 - 8.2 A/G Ratio 0.70 CALC Low 1.00 - 1.90 GFR >= 60 mL/min >60 GFR >= 60 mL/min >60 4 Influenza A/B RSV Covid Amp 06/20/[address] [address] [phone] Influenza A Amplification NEGATIVE Normal Negati ve 5 Influenza B Amplification NEGATIVE Normal Negative 6 RSV Amplification NEGATIVE Normal Negative 7 Sars Covid-19 Amplification NEGATIVE Normal Negative 8 Laboratory test finding 06/20/[address] [address] [phone] NT-Pro BNP 698 pg/mL High <450 Thyroid Stimulating Hormone 0.820 uIU/ML Normal 0.358-3.740 Liver Profile 06/20/[address] [address] [phone] Ast/Sgot 115 U/L High 7-37 Alt/SGPT 244 U/L High 12-78 Alkaline Phosphatase 143 U/L High 45-117 Bilirubin,Total 0.3 mg/dL Normal 0.2-1.0 Bilirubin,Direct 0.1 mg/dL Normal 0.0-0.2 Total Protein 6.5 GM/DL Normal 6.4-8.2 Albumin 2.4 GM/DL Low 3.2-5.2 Albumin/Globulin Ratio 0.6 Normal Laboratory test finding 06/20/[address] [address] [phone] Lactic Acid Sepsis Protocol 1.1 mmol/L Normal 0.4- 2.0 9 Arterial Blood Gas 06/20/[address] [address] [phone] ABG pH (Arterial) 7.471 units High 7.350-7.450 ABG Partial Pressure Co2 38.5 mmHg Normal 35.0-45.0 ABG Partial Pressure O2 107.9 mmHg High 75.0-100.0 ABG Total Co2 28.6 mEq/L Normal 23.0-31.0 ABG Hco3 27.5 mEq/L High 22.0-26.0 ABG Base Excess 3.6 High -2.0-2.0 ABG Standard Hco3 27.7 mEq/L High 22.0-26.0 ABG O2 Saturation 98.3 % Normal 95.0-99.0 Istat Chem8+ Panel 06/20/2021 [facility] nter [address], [place] [id number] [phone] iSTAT HCT 33.0 % Low 38.0-51.0 iSTAT Glucose 141 mg/dL High 70-105 iSTAT Sodium 136 mEq/L Normal 136-145 iSTAT Potassium 4.3 mEq/L Normal 3.5-5.1 iSTAT CA++ 4.7 mg/dL Normal 4.5-5.3 iSTAT Chloride 99 mEq/L Normal 98-109 iSTAT Co2 24.0 MM/L Normal 23.0-27.0 iSTAT BUN 28 mg/dL High 8-26 iSTAT Creatinine 0.4 mg/dL Low 0.6-1.3 CBC With Differential 06/20/2021 [facility] [address] [place] [address] [phone] White Blood Count 8.8 10 Normal 4.0-10.0 Red Blood Count 4.60 10 Normal 4.30-6.10 Hemoglobin 10.2 g/dL Low 13.5-17.5 Hematocrit 33.2 % Low 42.0-52.0 Mean Corpuscular Volume 72.2 fl Low 80.0-96.0 Mean Corpuscular Hemoglobin 22.2 pg Low 27.0-33.0 Mean Corpuscular HGB Conc 30.7 g/dL Low 32.0-36.5 Red Cell Distribution Width 16.0 % High 11.5-14.5 Platelet Count, Automated 330 10 Normal 150-450 Neutrophils % 87.3 % High 36.0-66.0 Lymph % 6.3 % Low 24.0-44.0 Perry % 5.3 % Normal 2.0-8.0 Eos % 0.0 % Normal 0.0-3.0 Baso % 0.3 % Normal 0.0-1.0 Immature Granulocyte % 0.8 % Normal 0-3.0 Nucleated Red Blood Cell % 0.0 % Normal 0-0 Neutrophils # 7.7 10 Normal 1.5-8.5 Lymph # 0.6 10 Low 1.5-5.0 Perry # 0.5 10 Normal 0.0-0.8 Eos # 0.0 10 Normal 0.0-0.5 Baso # 0.0 10 Normal 0.0-0.2 Complete Blood Count 06/19/2021 [facility] Product Handler: [place] [address] [phone] WBC 10.3 x10*3/UL 4.1 - 10.9 RBC 4.70 x10*6/UL 4.20 - 6.30 Hemoglobin 11.2 g/dL Low 12.0 - 18.0 10 Hematocrit 33.0 % Low 37.0 - 51.0 MCV 70.2 fL Low 80.0 - 97.0 MCH 23.8 pg Low 26.0 - 32.0 MCHC 33.9 g/dL 31.0 - 38.0 RDW 15.0 % High 11.6 - 13.7 PLT 332 x10*3/UL 140 - 440 MPV 7.1 FL Low 7.8 - 11.0 Lymph % 4.7 % Low 10.0 - 58.5 Mid % 1.6 % Low 1.7 - 9.3 Neut % 93.7 % High 37.0 - 92.0 Lymph # 0.4 x10*3/UL Low 0.6 - 4.1 Mid # 0.3 x10*3/UL 0.1 - 0.6 Neut # 9.6 x10*3/UL High 2.0 - 7.8 Comprehensive Chem Profile 06/19/2021 [facility] Product Handler: [place] [address] [phone] Glucose 149 mg/dL High 74 - 99 11 BUN 30 mg/dL High 7 - 18 Creatinine 0.8 mg/dL 0.6 - 1.3 Sodium 134 mEq/L Low 136 - 145 Potassium 4.8 mEq/L 3.5 - 5.1 Chloride 99 mEq/L 98 - 107 Carbon Dioxide 28 mEq/L 21 - 32 Calcium 9.4 mg/dL 8.5 - 10.1 Alk. Phosphatase 175 mg/dL High 46 - 116 Total Bilirubin 0.5 mg/dL 0.2 - 1.0 Ast (Sgot) 169 U/L High 15 - 37 Alt (SGPT) 294 U/L High 12 - 78 Albumin 2.5 g/dL Low 3.4 - 5.0 Total Protein 7.5 g/dL 6.4 - 8.2 A/G Ratio 0.50 CALC Low 1.00 - 1.90 GFR >= 60 mL/min >60 GFR >= 60 mL/min >60 12 Complete Blood Count 05/09/2021 [facility] Product Handler: Dr Arron Deras [place], [place] [id number] [phone] WBC 16.6 x10*3/UL High 4.1 - 10.9 13 RBC 4.62 x10*6/UL 4.20 - 6.30 Hemoglobin 11.1 g/dL Low 12.0 - 18.0 Hematocrit 33.0 % Low 37.0 - 51.0 MCV 71.5 fL Low 80.0 - 97.0 MCH 24.1 pg Low 26.0 - 32.0 MCHC 33.6 g/dL 31.0 - 38.0 RDW 14.7 % High 11.6 - 13.7 PLT 324 x10*3/UL 140 - 440 MPV 7.5 FL Low 7.8 - 11.0 Lymph % 5.9 % Low 10.0 - 58.5 Mid % 1.9 % 1.7 - 9.3 Neut % 92.2 % High 37.0 - 92.0 Lymph # 0.9 x10*3/UL 0.6 - 4.1 Mid # 0.4 x10*3/UL 0.1 - 0.6 Neut # 15.3 x10*3/UL High 2.0 - 7.8 Basic Metabolic Panel 05/09/2021 [facility] Product Handler: Dr Arron Deras [place], [place] [id number] [phone] Glucose 87 mg/dL 74 - 99 14 BUN 14 mg/dL 7 - 18 Creatinine 0.8 mg/dL 0.6 - 1.3 Sodium 136 mEq/L 136 - 145 Potassium 3.6 mEq/L 3.5 - 5.1 Chloride 100 mEq/L 98 - 107 Carbon Dioxide 26 mEq/L 21 - 32 Calcium 8.4 mg/dL Low 8.5 - 10.1 15 GFR >= 60 mL/min >60 GFR >= 60 mL/min >60 16 CBC With Differential 04/28/2021 [facility] [address] [place] [address] [phone] White Blood Count 21.6 10 High 4.0-10.0 Red Blood Count 4.87 10 Normal 4.30-6.10 Hemoglobin 11.6 g/dL Low 13.5-17.5 Hematocrit 35.9 % Low 42.0-52.0 Mean Corpuscular Volume 73.7 fl Low 80.0-96.0 Mean Corpuscular Hemoglobin 23.8 pg Low 27.0-33.0 Mean Corpuscular HGB Conc 32.3 g/dL Normal 32.0-36.5 Red Cell Distribution Width 14.9 % High 11.5-14.5 Platelet Count, Automated 323 10 Normal 150-450 Nucleated Red Blood Cell % 0.0 % Normal 0-0 Differential 04/28/[address] [address] [phone] Neutrophils 62 % Normal 28-66 Bands 30 % High < 11 Lymphocytes 1 % Low 16-44 Monocytes 5 % Normal 0-5 Eosinophils 2 % Normal 0-3 Anisocytosis 1+ Normal Microcytosis 2+ Normal Laboratory test finding 04/28/[address] [address] [phone] Platelet Estimate NORMAL Normal Normal Respiratory Panel 04/28/[address] [address] [phone] Respiratory Panel This respiratory <SEE NOTE> 17 Venous Blood Gas 04/28/[address] [address] [phone] Venous PH 7.424 units Normal 7.330-7.430 Venous Partial Pressure Co2 33.9 mmHg Low 38.0-50.0 Venous Partial Pressure O2 65.4 mmHg High 30.0-50.0 Venous Total Co2 22.7 mEq/L Low 24.0-28.0 Venous Hco3 21.7 mEq/L Low 23.0-27.0 Venous Base Excess -2.0 Normal -2.0-2.0 Venous Standard Hco3 22.7 mEq/L Normal Venous O2 Saturation 92.9 % High 60.0-80.0 Laboratory test finding 04/28/2021 [facility] [address] [place] [address] [phone] Lactic Acid Sepsis Protocol 1.6 mmol/L Normal 0.4- 2.0 18 Cardiac Marker Panel 04/28/2021 [facility] enter [address] [place] [address] [phone] CPK Creatine Phosphokinase 143 U/L Normal 39-30 8 CK-MB Value Mass 3.2 NG/ML Normal <3.6 MB/CK Relative Index 2.24 Normal < Or =4 19 Troponin I 0.07 NG/ML Normal < 0.10 20 Liver Profile 04/28/2021 [facility] nter [address] [place] [address] [phone] Ast/Sgot 33 U/L Normal 7-37 Alt/SGPT 56 U/L Normal 12-78 Alkaline Phosphatase 78 U/L Normal 45-117 Bilirubin,Total 0.5 mg/dL Normal 0.2-1.0 Bilirubin,Direct 0.2 mg/dL Normal 0.0-0.2 Total Protein 6.2 GM/DL Low 6.4-8.2 Albumin 2.2 GM/DL Low 3.2-5.2 Albumin/Globulin Ratio 0.6 Normal Basic Metabolic Profile 04/28/[address] [address] [phone] Glucose, Fasting 125 mg/dL High 70-100 Blood Urea Nitrogen 28 mg/dL High 7-18 Creatinine For GFR 1.13 mg/dL Normal 0.70-1.30 Glomerular Filtration Rate > 60.0 Normal >42 2 1 Sodium Level 130 mEq/L Low 136-145 Potassium Serum 4.9 mEq/L Normal 3.5-5.1 Chloride Level 99 mEq/L Normal 98-107 Carbon Dioxide Level 22 mEq/L Normal 21-32 Anion Gap 9 mEq/L Normal 8-16 Calcium Level 8.3 mg/dL Low 8.8-10.2 Laboratory test finding 04/28/2021 [id number] [place] [address] [phone] NT-Pro BNP 2940 pg/mL High <450 Thyroxine (T4) 6.4 g/dL Normal 4.5-12.0 Thyroid Stimulating Hormone 1.020 uIU/ML Normal 0.358-3.740 Coronavirus 2019 Nasopharygeal 04/05/[address] [address] [phone] Coronavirus 2019 Nasopharygeal NOTE: The COVID- <SEE N OTE> 22 1 NOTE: RESULT VERIFIED. 2 NOTE: RESULT VERIFIED .MANUAL DIFFERENTIAL SENT TO [facility] FOR MAREN IFICATION. 3 100-125 mg/dL PRE-DIABET ES/FASTING >126 mg/dL DIABETES/FASTING 4 CHRONIC KIDNEY DISEASE STAGI NG PER NKF STAGE I & II GFR >= 60 NORMAL TO MILDLY DECREASED STAGE III GFR 30-59 MODERATELY DECREASED STAGE IV GFR 15-29 SEVERELY DECREASED STAGE V GFR <15 VERY LITTLE GFR LEFT ESRD GFR <15 ON ASSOCIATE SPA DIRECTOR 5 Negative results do not prec lude influenza or RSV virus infection and should not be used as the sole basis for treatment or other patient management decisions. 6 Negative results do not prec lude influenza or RSV virus infection and should not be used as the sole basis for treatment or other patient management decisions. 7 Negative results do not prec lude influenza or RSV virus infection and should not be used as the sole basis for treatment or other patient management decisions. 8 A false negative result may occur if a specimen is improperly collected, transported or handled. False negative results may also occur if inadequate numbers of organisms are present in the specimen. As with any molecular test, mutations within the target regions of Xpert Xpress SARS-CoV-2 could affect primer and/or probe binding resulting in failure to detect the presence of virus. This test cannot rule out diseases caused by other bacterial or viral pathogens. DISCLAIMER: Testing was performed using the [employer] SARS-CoV-2 test. This test was developed and its performance characteristics determined by [employer]. This test has not been FDA cleared or approved. This test has been authorized by FDA under an Emergency Use Authorization (EUA). This test is only authorized for the duration of time the declaration that circumstances exist justifying the authorization of the emergency use of in vitro diagnostic tests for detection of SARS-CoV-2 virus and/or diagnosis of COVID-19 infection under section 564(b)(1) of the Act, 21 U.S.C. 360bbb-3(b)(1), unless the authorization is terminated or revoked sooner. 9 Y/N query for Sepsis Lactate Rule: Y 10 NOTE: RESULT VERIFIED. 11 100-125 mg/dL PRE-DIABET ES/FASTING >126 mg/dL DIABETES/FASTING 12 CHRONIC KIDNEY DISEASE STAGI NG PER NKF STAGE I & II GFR >= 60 NORMAL TO MILDLY DECREASED STAGE III GFR 30-59 MODERATELY DECREASED STAGE IV GFR 15-29 SEVERELY DECREASED STAGE V GFR <15 VERY LITTLE GFR LEFT ESRD GFR <15 ON ASSOCIATE SPA DIRECTOR 13 NOTE: RESULT VERIFIED. 14 100-125 mg/dL PRE-DIABET ES/FASTING >126 mg/dL DIABETES/FASTING 15 NOTE: RESULT VERIFIED. 16 CHRONIC KIDNEY DISEASE STAGI NG PER NKF STAGE I & II GFR >= 60 NORMAL TO MILDLY DECREASED STAGE III GFR 30-59 MODERATELY DECREASED STAGE IV GFR 15-29 SEVERELY DECREASED STAGE V GFR <15 VERY LITTLE GFR LEFT ESRD GFR <15 ON ASSOCIATE SPA DIRECTOR 17 This respiratory PCR panel d etects Influenza A H1, H3 and 2009 H1 viruses, Influenza B virus, Resp iratory Syncytial Virus, Human metapneumovirus, Parainfluenza virus 1, 2, 3 and 4, Adenovirus, Rhinovirus/Enterovirus, Coronavirus HKU1, NL63, OC43, 229E and SARS-CoV-2 (COVID 19), Bordetella pertussis, Bordetella parapertussis, Mycoplasma pneumoniae and Chlamydia pneumoniae. NEGATIVE by MULTIPLEXED NUCLEIC ACID PCR SARS-CoV-2 (COVID 19) NEGATIVE - SARS-CoV-2 (COVID19) 18 Y/N query for Sepsis Lactate Rule: Y 19 DIAGNOSIS CRITERIA MMB ng/ml Relative Index (RI) NON-AMI < or = 5 N/A MONTEMAYOR ZONE > 5 < or = 4 AMI > 5 > 4 20 Troponin I Reference Interva l for Siemens knowNormal LOCI: 99th Percentile= 0.00-0.045 ng/ml Risk Stratification: <= 0.10 ng/ml Decreased Risk for Adverse Clinical Events. 0.10-1.50 ng/ml Increased Risk for Adv erse Clinical Events. Evaluation of additional criterion and/or repeat testing in 2-6 hours is suggested to rule out myocardial damage. >= 1.50 ng/ml Indicative of Myocardial Injury. 21 Units are mL/min/1.73 m2 Chronic Kidney Disease Staging per NKF: Stage I & II GFR >=60 Normal to Mildly Decreased Stage III GFR 30-59 Moderately Decreased Stage IV GFR 15-29 Severely Decreased Stage V GFR <15 Very Little GFR Left ESRD GFR <15 on ASSOCIATE SPA DIRECTOR 22 NOTE: The COVID-19 assay is under Emergency Use Authorization (EUA) by the U.S. Food and Drug Administration. [email or web address] is designated as a high complexity laboratory by the Clinical Laboratory Improvement Amendments of 1988(CLIA) and is qualified to perform this test. ASSAY INFORMATION: Real Time RT-PCR or TMA. Both RT-PCR and TMA are molecular testing modalities and are recommended by the CDC for passenger travel. Not Detected Procedures Date Code Description Status 06/19/2021 82391 Office/Outpatient Established Mo d MDM 30-39 Min Completed 05/23/2021 60865 Office/Outpatient Established Mo d MDM 30-39 Min Completed 05/09/2021 59845 Rios Cre SRV W/I 7 Days Of DC, C omm W/I 2 Dys Med Rec Completed 03/22/2016 [id number] Colonoscopy Completed 02/03/2015 [id number] Colonoscopy Completed 01/06/2014 [id number] Colonoscopy Completed 05/24/2011 [id number] Colonoscopy Completed 04/21/2007 [id number] Colonoscopy Completed Medical Devices Description No Information Available Encounters Type Date Location Provider Dx Diagnosis Office Visit 06/19/2021 1:30p [facility] kellogg MD J44.9 Chronic obstructive pulmonary disease, u nspecified J47.9 Bronchiectasis, uncomplicate d J96.11 Chronic respiratory failure with hypoxia Z79.52 half-way (current) use of s ystemic steroids G47.33 Obstructive sleep apnea (maryann lt) (pediatric) J18.1 Lobar pneumonia, unspecified organism I95.1 Orthostatic hypotension D64.9 Anemia, unspecified Office Visit 05/23/2021 10:40a [facility] MD J44.9 Chronic obstructive pulmonary disease, u nspecified J96.11 Chronic respiratory failure with hypoxia D64.9 Anemia, unspecified G47.33 Obstructive sleep apnea (maryann lt) (pediatric) Z79.52 half-way (current) use of s ystemic steroids E78.00 Pure hypercholesterolemia, u nspecified I95.1 Orthostatic hypotension Office Visit 05/09/2021 9[facility] J18.1 Lobar pneumonia, unspecified organism I10 Essential (primary) hyperten zac J44.9 Chronic obstructive pulmonar y disease, unspecified G47.33 Obstructive sleep apnea (maryann lt) (pediatric) D64.9 Anemia, unspecified J96.11 Chronic respiratory failure with hypoxia M48.061 Spinal stenosis, lumbar rebecca on without neurogenic douglas Z79.52 half-way (current) use of s ystemic steroids Assessments Date Code Description Provider 07/18/2021 I10 Essential (primary) hypertension Trino Deras, DO 07/18/2021 I10 Essential (primary) hypertension Lab Schedule 07/18/2021 R74.01 Elevation of levels of liver tra nsaminase levels Trino Deras, DO 07/18/2021 R74.01 Elevation of levels of liver tra nsaminase levels Lab Schedule 07/09/2021 I10 Essential (primary) hypertension Trino Deras, DO 07/09/2021 I10 Essential (primary) hypertension Lab Schedule 07/06/2021 J90 Pleural effusion, not elsewhere classified Trino Deras, DO 07/06/2021 J18.1 Lobar pneumonia, unspecified org anism Trino Deras, DO 07/06/2021 J44.9 Chronic obstructive pulmonary di sease, unspecified Trino Deras, DO 07/06/2021 R74.01 Elevation of levels of liver tra nsaminase levels Trino Deras, DO 07/06/2021 D64.9 Anemia, unspecified Trino Deras, DO 07/06/2021 B37.9 Candidiasis, unspecified Zay Deras, DO 07/06/2021 I95.1 Orthostatic hypotension Ena Deras, DO 06/19/2021 J44.9 Chronic obstructive pulmonary di sease, unspecified Arron Deras MD 06/19/2021 J47.9 Bronchiectasis, uncomplicated Co nghia Deras MD 06/19/2021 J96.11 Chronic respiratory failure with hypoxia Arron Deras MD 06/19/2021 Z79.52 half-way (current) use of syste clint steroids Arron Deras MD 06/19/2021 G47.33 Obstructive sleep apnea (adult) (pediatric) Arron Deras MD 06/19/2021 J18.1 Lobar pneumonia, unspecified org anism Arron Deras MD 06/19/2021 I95.1 Orthostatic hypotension Arron Deras MD 06/19/2021 D64.9 Anemia, unspecified Arron lao MD 05/23/2021 J44.9 Chronic obstructive pulmonary di sease, unspecified Arron Deras MD 05/23/2021 J96.11 Chronic respiratory failure with hypoxia Arron Deras MD 05/23/2021 D64.9 Anemia, unspecified Arron lao MD 05/23/2021 G47.33 Obstructive sleep apnea (adult) (pediatric) Arron Deras MD 05/23/2021 Z79.52 half-way (current) use of syste clint steroids Arron Deras MD 05/23/2021 E78.00 Pure hypercholesterolemia, unspe cified Arron Deras MD 05/23/2021 I95.1 Orthostatic hypotension Arron Deras MD 05/09/2021 J18.1 Lobar pneumonia, unspecified org anism HINA Penn JR 05/09/2021 I10 Essential (primary) hypertension HINA Penn JR 05/09/2021 J44.9 Chronic obstructive pulmonary di sease, unspecified HINA Penn JR 05/09/2021 G47.33 Obstructive sleep apnea (adult) (pediatric) HINA Penn JR 05/09/2021 D64.9 Anemia, unspecified HINA Quiroz JR 05/09/2021 J96.11 Chronic respiratory failure with hypoxia HINA Penn JR 05/09/2021 M48.061 Spinal stenosis, lum bar region without neurogenic claudication HINA Penn JR 05/09/2021 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 * 08/23/2021 11:00 am - Arron Deras MD at [facility] 06/19/2021 - Arron Deras MD* J44.9 Chronic obstructive pulmonary disease, unspecified * J47.9 Bronchiectasis, uncomplicated * J96.11 Chronic respiratory failure with hypoxia * Z79.52 half-way (current) use of systemic steroids * G47.33 Obstructive sleep apnea (adult) (pediatric) * J18.1 Lobar pneumonia, unspecified organism * I95.1 Orthostatic hypotension * D64.9 Anemia, unspecified * All * New Medication:* Mirtazapine 7.5 mg - take one tablet by mouth at bedtime * Diflucan 100 mg - 1 by mouth every day x 10 days Functional Status Description No Information Available Mental Status Description No Information Available Referrals Description No Information Available
--- OUTSIDE RECORDS SUMMARY | 2021-09-10 11:49 | CCD | Continuity of Care Document ---
Author Author Shukri THACKER MD Organization Unknown Address [address] [place] [address] Phone [phone] Care Team Providers Care Mat Making Machine Tender Name Role Phone Arron Deras MD @ [facility] Int AUTM Trino Betancourt M.D. AUTM [phone] Problems Active Problems Provider Date Essential hypertension Flaco Isaacs MD Onset: 05/08/2015 Disorder of oral soft tissues Flaco Isaacs MD Onset: Disorder of vocal cord Flaco Isaacs MD Onset: 06/22/2015 History of polyp of colon Shukri Hutchinson MD Onset: 015 Benign neoplasm of colon Shukri Hutchinson MD Onset: 06/22/20 15 Disorder of rectum Shukri Hutchinson MD Onset: 06/22/2015 Late effect of radiation Shukri Hutchinson MD Onset: 06/22/20 15 Family history of malignant neoplasm of gastrointestinal tra ct Suhkri Hutchinson MD Onset: 06/22/2015 Internal hemorrhoids without complication Shukri Hutchinson MD Onset: 06/22/2015 Disorder of intestine Shukri Hutchinson MD Onset: 06/22/2015 Anemia due to chronic blood loss Shukri Hutchinson MD Onset: 06/22/2015 Iron deficiency anemia Shukri Hutchinson MD Onset: 06/22/2015 Postsurgical Status Other Shukri Hutchinson MD Onset: 015 Indigestion Shukri Hutchinson MD Onset: 06/22/2015 Candidiasis of the esophagus Shukri Hutchinson MD Onset: 06/10 Gastroduodenitis Shukri Hutchinson MD Onset: 06/22/2015 Screening Hemoglobinopathy Other Shukri uHtchinson MD Onset: 06/22/2015 Intestinal Bypass Or Anastomosis Postsurgical Shukri Hutchinson MD Onset: 06/22/2015 Radiation enterocolitis Shukri Hutchinson MD Onset: 5 Disorder of cardiovascular system Shukri Hutchinson MD Onset: 06/22/2015 Screening for malignant neoplasm of colon Shukri Hutchinson MD Onset: 06/22/2015 Esophagitis Shukri Hutchinson MD Onset: 06/22/2015 Long-term current use of systemic steroid Nancy Carbone A.N.[place] Onset: 06/03/2017 Chronic obstructive lung disease Nancy Carbone A.NHannah Onset: 06/03/2017 Ex-smoker Bentley Thacker MD Onset: 06/20/2015 Steroid Bentley Thacker MD Onset: 10/19/2014 Emphysematous bronchitis Bentley Thacker MD Onset: 12/02/19 13 Acute exacerbation of chronic obstructive airways disease To Nancy paredes A.NHannah Onset: 10/19/2012 Extrinsic asthma with asthma attack Jannie Fritz A.N. P. Onset: 07/30/2012 Asthma without status asthmaticus Bentley Thacker MD Onset: 04/16/2012 Cough Bentley Thacker MD Onset: 04/16/2012 Acute exacerbation of chronic asthmatic bronchitis Bentley Thacker MD Onset: 03/04/2012 Underweight Bentley Thacker MD Onset: 08/26/2011 Obstructive sleep apnea syndrome Bentley Thacker MD Onset: 08/19/2011 Disturbance of consciousness Bentley Thacker MD Onset: 04/11 Allergic rhinitis Bentley Thacker MD Onset: 10/18/2010 Sleep apnea Bentley Thacker MD Onset: 10/18/2010 Abnormal findings on diagnostic imaging of lung Bentley virgen MD Onset: 10/18/2010 Chronic asthmatic bronchitis Bentley Thacker MD Onset: 07/2010 Social History Type Date Description Comments Sex Unknown ETOH Use 1 A Day Tobacco Use Start: 11/10/59 End: 11/10/92 Patient is a forme r smoker 2 ppd x 33+ yrs Smoking Status Reviewed: 08/29/21 Patient is a former smoker 2 ppd x 33+ yrs Recent Travel There has not been recent travel abroad Not since 2007 Allergies and adverse reactions Active Allergies Criticality Reaction | Severity Comments Date NKDA Unable to assess criticality 03/12/2021 Inactive Allergies NKDA Unable to assess criticality 03/05/2010 Amoxicillin Unable to assess criticality severe diarrhea 09/02/2012 Medications Active Medications SIG Qnty Indications Ordering Provide r Date Prednisone 10mg Tablets 20 mg to alternate with 10 mg daily 45tabs Bentley Thacker MD 08/02/2021 Miralax 17GM/Scoop Powder take 1 dose daily x 7 days prior to colonoscopy as directed. Then use for bowel prep per instructions. 510gm R19.5 Shukri Hutchinson MD 03/12/2021 Magnesium Citrate 1.745GM/30ML Jodi ution take one 10 ounce bottle prior to procedure for additional bowel prep per instructions. 296ml D50.9 Shukri Hutchinson MD 03/12/2021 Oxygen Device 2 l cont/QHS bleed in (inogen) Bentley Thacker MD 12/07/2020 Budesonide 0.5mg/2ML Suspension Use 1 Vial Via Nebulizer Twice A Day 1440units Bentley Thacker MD Incruse Ellipta 62.5mcg/Inh Aeroso l Use 1 Inhalation Daily 2700units Bentley Thacker MD 06/09/2019 CPAP 14cm W/2L 02 Bleed- marras Bentley Thacker MD 02/22/2019 Combivent Respimat 20-100mcg/Act A erosol Use 1 Inhalation Four Times A Day as Needed 48units Lorin Thacker MD 07/24/2018 Xopenex 1.25mg/3ML Nebulizer 1 vial inhalation four times a day as needed Unknown Mucinex Maximum Strength 1200mg Tablets ER 12HR take one tablet by mouth every 12 hours as needed Unknown Ativan 0.5mg Tablets Unknown Midodrine HCL 5mg Tablets Take 2 Tablets By Mouth Three Times A Day 8Am 12PM And 4PM U nknown Iron (Ferrous Sulfate) 325(65Fe) mg Tablets 1tab po qd Unknown Preservision Areds 2 Areds 2 Capsu les 1cap po qd Unknown Amlodipine Besylate 5mg Tablets 1tab po qd Unknown Acetaminophen 325mg Tablets 1tab po q6h prn for pain Unknown Nystatin 404617Sbkx/ML Suspension Use 5ML By Mouth Swish And Spit Two Times A Day as Needed For Thrush Unknown Solifenacin Succinate 10mg Tablets 1 tab by mouth daily Unknown Oxycodone-Acetaminophen 5-325mg Ta blets 1 by mouth every 4 hours as needed Unknown Lotemax 0.5% Suspension 1 drop right eye four times a day Unknown Azithromycin 250mg Tablets Q M-W-FR 12tabethany Thacker MD Symbicort 160-4.5mcg/Act Aerosol Use 2 Inhalations Twice A Day 30.6units Bentley Thacker MD Fluticasone Propionate 50mcg/Act Suspension Use 2 Sprays In Each Nostril Every Night AT Bedtime 48unvaibhav Thacker MD History Medications Prednisone 5mg Tablets 15 mg alternate with 10 mg daily 30tabethany Thacker MD 07/03/2021 - 08/02/2021 Cipro 500mg Tablets 1 tab by mouth twice a day x 14 days 28tabs Bentley Thacker MD 04/06/2021 - 04/20/2021 Prednisone 10mg Tablets 40mg PO every day x 4 days then 30mg every day x 4 days then 20mg every day x 4 days, then return to alternating 20mg and 10mg once daily. 36tabs Josephine Krishna, N.P. 04/03/2021 - 04/28/2021 Medications Administered in Office Medication SIG Qnty Indications Ordering Provider Date Covid-19 vaccine, Unspecified Inj ection Unknown 12/25/2020 Covid-19 vaccine, Unspecified Inj ection Unknown 11/24/2020 Immunizations CPT Code Status Date Vaccine Lot # [id number] Given 07/29/2016 Influenza Virus Split 3 Yrs And Above For Intramuscular Use 54806 Given 08/08/2015 Influenza Virus Split 3 Yrs And Above For Intramuscular Use 79570 Given 07/13/2015 Pneumococcal PPSV23 76838 Given 12/27/2014 Prevnar 13 07817 Given 08/18/2014 Influenza Virus Split 3 Yrs And Above For Intramuscular Use Q2036 Given 08/04/2013 Influenza Vaccine 3 Years Of Age Or Older (Flulaval) Q2036 Given 07/14/2012 Influenza Vaccine 3 Years Of Age Or Older (Flulaval) 87446 Given 07/14/2012 Pneumococcal PPSV23 Q2036 Given 07/13/2012 Influenza Vaccine 3 Years Of Age Or Older (Flulaval) 84377 Given 08/07/2011 Influenza Virus Split 3 Yrs And Above For Intramuscular Use 31104 Given 09/26/2010 Pneumococcal PPSV23 39564 Given 07/24/2010 Influenza Virus Split 3 Yrs And Above For Intramuscular Use 89311 Given 09/29/2009 Influenza Vaccine 17806 Given 09/19/2008 Influenza Vaccine 16286 Given 08/25/2003 Pneumococcal PPSV23 67190 Given Unknown Pneumococcal PPSV23 68324 Given Unknown Prevnar 13 Vital Signs Date Vital Result Comment 08/29/2021 9:54am BP Systolic 100 mmHg BP Diastolic 58 mmHg Heart Rate 98 /min O2 % BldC Oximetry 882 % Respiratory Rate 20 /min Height 72 inches 6'0" Weight 131.50 lb BMI (Body Mass Index) 17.8 kg/m2 Cora Body Weight 178 lb Weight 59.648 kg BSA (Body Surface Area) 1.78 m2 07/18/2021 2:14pm BP Systolic 108 mmHg BP Diastolic 64 mmHg Heart Rate 91 /min O2 % BldC Oximetry 892 % Height 72 inches 6'0" Cora Body Weight 178 lb Results Test Acquired Date Facility Test Result H/L Range Note Laboratory test finding 08/29/2021 [facility] Main Lab [address] [place], [place] [id number] [phone] Sputum Culture And Gram Stain (SEE NOTE) Normal 1 Complete Blood Count 03/13/2021 [facility] Main Lab [address] [place], [place] [id number] [phone] White Blood Count 13.3 10 High 4.0-10.0 Red Blood Count 5.47 10 Normal 4.30-6.10 Hemoglobin 12.6 g/dL Low 13.5-17.5 Hematocrit 42.3 % Normal 42.0-52.0 Mean Corpuscular Volume 77.3 fl Low 80.0-96.0 Mean Corpuscular Hemoglobin 23.0 pg Low 27.0-33.0 Mean Corpuscular HGB Conc 29.8 g/dL Low 32.0-36.5 Red Cell Distribution Width 19.2 % High 11.5-14.5 Platelet Count, Automated 249 10 Normal 150-450 Nucleated Red Blood Cell % 0.0 % Normal 0-0 2 Total Iron Binding Capacit 03/13/2021 [facility] Main Lab [address] [place], [place] [id number] [phone] Iron (Fe) 54 g/dL Low 65-175 Total Iron Binding Capacity 285 g/dL Normal 250-450 Percent Saturation 18.9 % Low 19.7-50.0 3 Comprehensive Metabolic Profil 03/13/2021 [facility] Main Lab [address] [place], [place] [id number] [phone] Glucose, Fasting 96 mg/dL Normal 70-100 Blood Urea Nitrogen 26 mg/dL High 7-18 Creatinine For GFR 0.62 mg/dL Low 0.70-1.30 Glomerular Filtration Rate > 60.0 Normal >42 4 Sodium Level 141 mEq/L Normal 136-145 Potassium Serum 4.7 mEq/L Normal 3.5-5.1 Chloride Level 108 mEq/L High 98-107 Carbon Dioxide Level 29 mEq/L Normal 21-32 Anion Gap 4 mEq/L Low 8-16 Calcium Level 9.2 mg/dL Normal 8.8-10.2 Ast/Sgot 28 U/L Normal 7-37 Alt/SGPT 37 U/L Normal 12-78 Alkaline Phosphatase 80 U/L Normal 45-117 Bilirubin,Total 0.4 mg/dL Normal 0.2-1.0 Total Protein 6.7 GM/DL Normal 6.4-8.2 Albumin 3.5 GM/DL Normal 3.2-5.2 Albumin/Globulin Ratio 1.1 Normal 5 1 QUALITY: GOOD MANY WBCS FEW EPITHELIAL CELLS MANY GRAM POSITIVE COCCI IN PAIRS AND CHAINS FEW GRAM POSITIVE RODS 2 03/15/21 (March 15) 09:17 A M KIEL CHARLEBOIS Anemia has improved. WBC elevated. Informed patient and letter sent to PCP. 3 03/15/21 (March 15) 09:17 A M KIEL CHARLEBOIS Improvement noted. 4 Units are mL/min/1.73 m2 Chronic Kidney Disease Staging per NKF: Stage I & II GFR >=60 Normal to Mildly Decreased Stage III GFR 30-59 Moderately Decreased Stage IV GFR 15-29 Severely Decreased Stage V GFR <15 Very Little GFR Left ESRD GFR <15 on [employer] 5 03/15/21 (March 15) 09:17 A M KIEL CHARLEBOIS No significant abnormalities. Procedures Date Code Description Status 08/29/2021 67741 Office/Outpatient Established Mo d MDM 30-39 Min Completed 07/28/2021 [id number] Hospital Subsequent Care Level 2 Completed 07/18/2021 [id number] Office/Outpatient Established Mo d MDM 30-39 Min Completed 07/03/2021 [id number] Office/Outpatient Established Mo d MDM 30-39 Min Completed 06/21/2021 [id number] Hospital Subsequent Care Level 2 Completed 05/21/2021 46589 Office/Outpatient Established Mo d MDM 30-39 Min Completed 05/04/2021 53571 Hospital Subsequent Care Level 2 Completed 05/03/2021 [id number] Hospital Subsequent Care Level 2 Completed 05/02/2021 [id number] Hospital Subsequent Care Level 2 Completed 05/01/2021 05283 Hospital Subsequent Care Level 2 Completed 04/29/2021 62852 Hospital Initial Care Level 1 Co mpleted 03/12/2021 86691 Office/Outpatient New Low MDM 30 -44 Minutes Completed 03/08/2021 68311 Office/Outpatient Established Mo d MDM 30-39 Min Completed Medical Devices Description No Information Available Encounters Type Date Location Provider Dx Diagnosis Office Visit 08/29/2021 10:00a [facility] Sheng Thacker MD J44.9 Chronic obstructive pulmonary disease, u nspecified R91.8 Other nonspecific abnormal f inding of lung field G47.33 Obstructive sleep apnea (maryann lt) (pediatric) J96.11 Chronic respiratory failure with hypoxia 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 Z79.52 prison (current) use of s ystemic steroids Z79.899 Other [facility] (current) dr rocha therapy Z66 Do not resuscitate Office Visit 07/28/2021 1:23a [facility] Hipolito teixeira, D.O. J18.9 Pneumonia, unspecified organism J44.9 Chronic obstructive pulmonar y disease, unspecified J96.11 Chronic respiratory failure with hypoxia J90 Pleural effusion, not elsewh ere classified Office Visit 07/18/2021 2:15p [facility] Sheng Thacker MD J44.9 Chronic obstructive pulmonary disease, u nspecified G47.33 Obstructive sleep apnea (maryann lt) (pediatric) R91.8 Other nonspecific abnormal f inding of lung field J96.11 Chronic respiratory failure with hypoxia 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 Z79.52 prison (current) use of s ystemic steroids Z79.899 Other [facility]p (current) dr josefina gregory Office Visit 07/03/2021 1:30p [facility] Sheng Thacker MD R91.8 Other nonspecific abnormal finding of tyler ng field J96.11 Chronic respiratory failure with hypoxia 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 G47.33 Obstructive sleep apnea (maryann lt) (pediatric) J44.9 Chronic obstructive pulmonar y disease, unspecified Z79.52 prison (current) use of s ystemic steroids Office Visit 06/21/2021 1:23a [facility] Sharda Green M.D. 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 J90 Pleural effusion, not elsewhere classifi ed J44.9 Chronic obstructive pulmonar y disease, unspecified E87.6 Hypokalemia Office Visit 05/03/2021 1:23a [facility] D avid P. Heidi, D.O J15.1 Pneumonia due to Pseudomonas J90 Pleural effusion, not elsewh ere classified J44.9 Chronic obstructive pulmonar y disease, unspecified Office Visit 05/02/2021 1:23a [facility] D avid P. Heidi, D.O J15.1 Pneumonia due to Pseudomonas J90 Pleural effusion, not elsewh ere classified J44.9 Chronic obstructive pulmonar y disease, unspecified Office Visit 05/01/2021 1:23a [facility] Evelia Gordon D.O J15.1 Pneumonia due to Pseudomonas J44.9 Chronic obstructive pulmonar y disease, unspecified J90 Pleural effusion, not elsewh ere classified Office Visit 04/29/2021 1:23a [facility] Sharda Green M.D. J15.1 Pneumonia due to Pseudomonas J44.9 Chronic obstructive pulmonar y disease, unspecified J96.11 Chronic respiratory failure with hypoxia J90 Pleural effusion, not elsewh ere classified Office Visit 03/12/2021 3:00p [facility] Kiel A Sandhya, RPA-C D50.9 Iron deficiency anemia, unsp ecified R19.5 Other fecal abnormalities Z86.010 Personal history of colonic polyps Z80.0 Family history of malignant neoplasm of digestive organs Office Visit 03/08/2021 1:45p [facility] Sheng Thacker MD J44.9 Chronic obstructive pulmonary disease, u nspecified J96.11 Chronic respiratory failure with hypoxia 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 G47.33 Obstructive sleep apnea (maryann lt) (pediatric) Z79.52 prison (current) use of s ystemic steroids Z79.899 Other usp (current) dr josefina therapy J30.9 Allergic rhinitis, unspecifi ed Assessments Date Code Description Provider 08/29/2021 J44.9 Chronic obstructive pulmonary di sease, unspecified Bentley Thacker MD 08/29/2021 R91.8 Other nonspecific abnormal findi ng of lung field Bentley Thacker MD 08/29/2021 G47.33 Obstructive sleep apnea (adult) (pediatric) Bentley Thacker MD 08/29/2021 J96.11 Chronic respiratory failure with hypoxia Bentley Thacker MD 08/29/2021 Z99.81 Dependence on supplemental oxyge n Bentley Thacker MD 08/29/2021 Z79.52 prison (current) use of syste clint steroids Bentley Thacker MD 08/29/2021 Z79.899 Other usp (current) drug t herapy Bentley Thacker MD 08/29/2021 Z66 Do not resuscitate Bentley lopez MD 07/28/2021 J18.9 Pneumonia, unspecified organism Hipolito Sears, D.O. 07/28/2021 J44.9 Chronic obstructive pulmonary di sease, unspecified Hipolito Sears, D.O. 07/28/2021 J96.11 Chronic respiratory failure with hypoxia Hipolito Sears, D.O. 07/28/2021 J90 Pleural effusion, not elsewhere classified Hipolito Sears, D.O. 07/18/2021 J44.9 Chronic obstructive pulmonary di sease, unspecified Bentley Thacker MD 07/18/2021 G47.33 Obstructive sleep apnea (adult) (pediatric) Bentley Thacker MD 07/18/2021 R91.8 Other nonspecific abnormal findi ng of lung field Bentley Thacker MD 07/18/2021 J96.11 Chronic respiratory failure with hypoxia Bentley Thacker MD 07/18/2021 Z99.81 Dependence on supplemental oxyge n Bentley Thacker MD 07/18/2021 Z79.52 senior svp (current) use of syste clint steroids Bentley Thacker MD 07/18/2021 Z79.899 Other batch heat treat operator (current) drug t herapy Bentley Thacker MD 07/03/2021 R91.8 Other nonspecific abnormal findi ng of lung field Bentley Thacker MD 07/03/2021 J96.11 Chronic respiratory failure with hypoxia Bentley Thacker MD 07/03/2021 Z99.81 Dependence on supplemental oxyge n Bentley Thacker MD 07/03/2021 G47.33 Obstructive sleep apnea (adult) (pediatric) Bentley Thacker MD 07/03/2021 J44.9 Chronic obstructive pulmonary di sease, unspecified Bentley Thacker MD 07/03/2021 Z79.52 senior svp (current) use of syste clint steroids Bentley Thacker MD 06/21/2021 J18.9 Pneumonia, unspecified organism Sharda Napier M.D. 06/21/2021 J91.8 Pleural effusion in other condit ions classified elsewhere Sharda Napier M.D. 06/21/2021 J96.11 Chronic respiratory failure with hypoxia Sharda Napier M.D. 05/21/2021 J96.11 Chronic respiratory failure with hypoxia Bentley Thacker MD 05/21/2021 Z99.81 Dependence on supplemental oxyge n Bentley Thacker MD 05/21/2021 G47.33 Obstructive sleep apnea (adult) (pediatric) Bentley Thacker MD 05/21/2021 Z79.52 senior svp (current) use of syste clint steroids Bentley Thacker MD 05/21/2021 Z79.899 Other batch heat treat operator (current) drug t herapy Bentley Thacker MD 05/21/2021 J47.9 Bronchiectasis, uncomplicated La wrtasia Thacker MD 05/04/2021 J90 Pleural effusion, not elsewhere classified Evelia Anderson.O. 05/04/2021 J44.9 Chronic obstructive pulmonary di sease, unspecified Hipolito Granados D.O. 05/04/2021 E87.6 Hypokalemia Evelia Anderson.O. 05/03/2021 J15.1 Pneumonia due to Pseudomonas Maycol id Evelia Harris.O 05/03/2021 J90 Pleural effusion, not elsewhere classified Evelia Augustine.O 05/03/2021 J44.9 Chronic obstructive pulmonary di sease, unspecified Evelia Augustine.O 05/02/2021 J15.1 Pneumonia due to Pseudomonas Maycol id Sangita Gordon D.O 05/02/2021 J90 Pleural effusion, not elsewhere classified Evelia Augustine.Cassie 05/02/2021 J44.9 Chronic obstructive pulmonary di sease, unspecified Evelia Augustine.O 05/01/2021 J15.1 Pneumonia due to Pseudomonas Evelia Cortes.O 05/01/2021 J44.9 Chronic obstructive pulmonary di sease, unspecified Evelia Augustine.O 05/01/2021 J90 Pleural effusion, not elsewhere classified Evelia Augustine.O 04/29/2021 J15.1 Pneumonia due to Pseudomonas Sharda Rocha M.D. 04/29/2021 J44.9 Chronic obstructive pulmonary di sease, unspecified Sharda Napier M.D. 04/29/2021 J96.11 Chronic respiratory failure with hypoxia Sharda Napier M.D. 04/29/2021 J90 Pleural effusion, not elsewhere classified Sharda Napier M.D. 03/12/2021 D50.9 Iron deficiency anemia, unspecif ied Kiel Arthur, [facility] 03/12/2021 R19.5 Other fecal abnormalities Laura Arthur, [facility] 03/12/2021 Z86.010 Personal history of colonic poly ps Kiel Arthur, [facility] 03/12/2021 Z80.0 Family history of malignant neop lasm of digestive organs Kiel Arthur, [facility] 03/08/2021 J44.9 Chronic obstructive pulmonary di sease, unspecified Bentley Thacker MD 03/08/2021 J96.11 Chronic respiratory failure with hypoxia Bentley Thacker MD 03/08/2021 Z99.81 Dependence on supplemental oxyge n Bentley Thacker MD 03/08/2021 G47.33 Obstructive sleep apnea (adult) (pediatric) Bentley Thacker MD 03/08/2021 Z79.52 senior svp (current) use of syste clint steroids Bentley Thacker MD 03/08/2021 Z79.899 Other usp (current) drug t herapy Bentley Thacker MD 03/08/2021 J30.9 Allergic rhinitis, unspecified L jack Thacker MD Plan of Treatment Future Appointment(s):* 11/22/2021 1:15 pm - Bentley Thacker MD at [facility] 08/29/2021 - Bentley Thacker MD* J44.9 Chronic obstructive pulmonary disease, unspecified * R91.8 Other nonspecific abnormal finding of lung field * G47.33 Obstructive sleep apnea (adult) (pediatric) * J96.11 Chronic respiratory failure with hypoxia * Z99.81 Dependence on supplemental oxygen * Z79.52 prison (current) use of systemic steroids * Z79.899 Other batch heat treat operator (current) drug therapy * Z66 Do not resuscitate * * Comments:* ~ He informs me he is now a DNR, and has a signed MOLST form. ~ His CT scan clearly shows improvement, but he is having persistent difficulties with his bronchiectasis and sputum clearance.~ He tells me he has an appointment tomorrow with Dr. Miguel from infectious diseases, and I spoke with her by phone. We will reculture his sputum today. I feel we are probably at the point where we should consider rotating antibiotics, most likely cefuroxime, Levaquin and Bactrim on a rotating schedule to be taken the first week of every month. I await her thoughts on that as we had discussed it, and she is evaluating him tomorrow.~ I had a long discussion regarding the fact that I think that improving his compliance with his CPAP, both off and on during the day and at night will significantly aid in his overall situation. Certainly, he cannot raise sputum while he is on it, but I think with recruitment, especially distal and small airways, may aid in his secretion clearance.~ We had a long discussion regarding expectorants, acapella and chest PT, as well as postural drainage.~ I have strongly encouraged him to try to be a little bit more active, as if he gets anymore deconditioned, then, I t hink the outcome will not be good at all.~ For now, he is to continue his current medication regimen. We put in an order and gave him a sputum cup to get a sample.~ I will see him in a minimum of 3 months, but await the outcome of the above, and await word from Dr. Miguel. * Follow up:* Follow up in three months. Functional Status Description No Information Available Mental Status Description No Information Available Referrals Description No Information Available
--- OUTSIDE RECORDS SUMMARY | 2021-09-10 11:49 | CCD | Continuity of Care Document ---
Author Author Shukri MEDINA D.OMatti [place] [address] Phone [phone] Care Team Providers Care Continuous Loft Operator Name Role Phone Arron Deras MD @ [facility] Int AUTM Trino Betancourt M.D. AUTM Problems Active Problems Provider Date Essential hypertension Flaco Isaacs MD Onset: 05/08/2015 Disorder of oral soft tissues Flaco Isaacs MD Onset: Disorder of vocal cord Flaco Isaacs MD Onset: 06/22/2015 History of polyp of colon Shukri Hutchinson MD Onset: 015 Benign neoplasm of colon Shukri Hutchinson MD Onset: 06/22/20 15 Disorder of rectum Shukri Hutcihnson MD Onset: 06/22/2015 Late effect of radiation Shukri Hutchinson MD Onset: 06/22/20 15 Family history of malignant neoplasm of gastrointestinal tra ct Shukri Hutchinson MD Onset: 06/22/2015 Internal hemorrhoids without [...] MD Onset: 06/22/2015 Screening Hemoglobinopathy Other Shukri Hutchinson MD Onset: 06/22/2015 Intestinal Bypass Or Anastomosis Postsurgical Shukri Hutchinson MD Onset: 06/22/2015 Radiation enterocolitis Shukri Hutchinson MD Onset: 5 Disorder of cardiovascular system Shukri Hutchinson MD Onset: 06/22/2015 Screening for malignant neoplasm of colon Shukri Hutchinson MD Onset: 06/22/2015 Esophagitis Shukri Hutchinson MD Onset: 06/22/2015 Long-term current use of systemic steroid Nancy Carbone A.NLauri [place] Onset: 06/03/2017 Chronic obstructive lung disease [...] ppd x 33+ yrs Smoking Status Reviewed: 07/18/21 Patient is a former smoker 2 ppd [...] alternate with 10 mg daily 45tabs Bentley Thcaker MD 08/02/2021 Miralax 17GM/Scoop Powder take 1 [...] Four Times A Day as Needed 48units Lawr tasia Thacker MD 07/24/2018 Mucinex 600mg Tablets ER 12HR 2 by mouth twice a day Unknown Ativan 0.5mg Tablets Unknown Midodrine HCL 5mg Tablets Take 2 Tablets By Mouth Three Times A Day 8Am 12PM And 4PM U nknown Iron (Ferrous Sulfate) 325(65Fe) mg Tablets 1tab po qd Unknown Preservision Areds 2 Areds 2 Capsu les 1cap po qd Unknown Amlodipine Besylate 5mg Tablets 1tab po qd Unknown Zinc 50MG 1tab po qd Unknown Acetaminophen 325mg Tablets 1tab po q6h prn for pain Unknown Nystatin [id number] Suspension Use 5ML By Mouth Swish And Spit Two Times A Day as Needed For Thrush Unknown Solifenacin Succinate 10mg Tablets 1 tab by mouth daily Unknown Xopenex 1.25mg/3ML Nebulizer 1 vial inhalation four times a day as needed Unknown Oxycodone-Acetaminophen 5-325mg Ta blets 1 by mouth every 4 hours as needed Unknown Lotemax 0.5% Suspension 1 drop right eye four times a day Unknown Azithromycin 250mg Tablets Q M-W-FR 12tabethany Thacker MD Symbicort 160-4.5mcg/Act Aerosol Use 2 Inhalations Twice A Day 30.6unvaibhav Thacker MD Fluticasone Propionate 50mcg/Act Suspension Use [...] 36tabs Josephine Krishna, N.P. 04/03/2021 - 04/28/2021 Cipro 500mg Tablets 1 tab by mouth twice a day x 10 days 20tabethany Thacker MD 02/27/2021 - 10/29/2020 Medications Administered in Office Medication SIG Qnty Indications Ordering Provider Date Covid-19 vaccine, Unspecified Inj ection Unknown 12/25/2020 Covid-19 vaccine, Unspecified Inj ection Unknown 11/24/2020 Immunizations CPT Code Status Date Vaccine Lot # [id number] Given 07/29/2016 Influenza Virus Split 3 Yrs And Above For Intramuscular Use [id number] Given 08/08/2015 Influenza Virus Split 3 Yrs And Above For Intramuscular Use 46491 Given 07/13/2015 Pneumococcal PPSV23 64367 Given 12/27/2014 Prevnar 13 02923 Given 08/18/2014 Influenza Virus Split 3 Yrs And Above For Intramuscular Use Q2036 Given 08/04/2013 Influenza Vaccine 3 Years Of Age Or Older (Flulaval) Q2036 Given 07/14/2012 Influenza Vaccine 3 Years Of Age Or Older (Flulaval) 20174 Given 07/14/2012 Pneumococcal PPSV23 Q2036 Given 07/13/2012 Influenza Vaccine 3 Years Of Age Or Older (Flulaval) 81673 Given 08/07/2011 Influenza Virus Split 3 Yrs And Above For Intramuscular Use 31458 Given 09/26/2010 Pneumococcal PPSV23 49062 Given 07/24/2010 Influenza Virus Split 3 Yrs And Above For Intramuscular Use 88591 Given 09/29/2009 Influenza Vaccine 42524 Given 09/19/2008 Influenza Vaccine 90553 Given 08/25/2003 Pneumococcal PPSV23 99817 Given Unknown Pneumococcal PPSV23 90698 Given Unknown Prevnar 13 Vital Signs Date Vital Result Comment 07/18/2021 2:14pm BP Systolic 108 mmHg BP Diastolic 64 mmHg Heart Rate 91 /min O2 % BldC Oximetry 892 % Height 72 inches 6'0" Elim Body Weight 178 lb 07/03/2021 1:40pm BP Systolic 86 mmHg BP Diastolic 58 mmHg Heart Rate 74 /min O2 % BldC Oximetry 942 % Height 72 inches 6'0" Weight 127.00 lb BMI (Body Mass Index) 17.2 kg/m2 Elim Body Weight 178 lb Weight 57.607 kg BSA (Body Surface Area) 1.76 m2 Results Test Acquired Date Facility Test Result H/L Range Note Complete Blood Count 03/13/2021 [facility] enter Main Lab [address], [place] [id number] [phone] White Blood Count 13.3 10 High 4.0-10.0 [...] Blood Cell % 0.0 % Normal 0-0 1 Total Iron Binding Capacit 03/13/2021 [facility] Main Lab [address], [place] [id number] [phone] Iron (Fe) 54 g/dL Low 65-175 Total Iron Binding Capacity 285 g/dL Normal 250-450 Percent Saturation 18.9 % Low 19.7-50.0 2 Comprehensive Metabolic Profil 03/13/2021 [facility] Main Lab [address], [place] [id number] [phone] Glucose, Fasting 96 mg/dL Normal 70-100 Blood Urea Nitrogen 26 mg/dL High 7-18 Creatinine For GFR 0.62 mg/dL Low 0.70-1.30 Glomerular Filtration Rate > 60.0 Normal >42 3 Sodium Level 141 mEq/L Normal 136-145 Potassium [...] GM/DL Normal 3.2-5.2 Albumin/Globulin Ratio 1.1 Normal 4 1 03/15/21 (Thr March 15) 09:17 A M KIEL CHARLEBOIS Anemia has improved. WBC elevated. Informed patient and letter sent to PCP. 2 03/15/21 (Thr March 15) 09:17 A M KIEL CHARLEBOIS Improvement noted. 3 Units are mL/min/1.73 m2 Chronic Kidney Disease Staging per NKF: Stage I & II GFR >=60 Normal to Mildly Decreased Stage III GFR 30-59 Moderately Decreased Stage IV GFR 15-29 Severely Decreased Stage V GFR <15 Very Little GFR Left ESRD GFR <15 on BUILDING CUSTODIAN 4 03/15/21 (Thr March 15) 09:17 A M KIEL CHARLEBOIS No significant abnormalities. Procedures Date Code Description Status 07/28/2021 85281 Hospital Subsequent Care Level 2 Completed 07/18/2021 97012 Office/Outpatient Established Mo d MDM 30-39 Min Completed 07/03/2021 17577 Office/Outpatient Established Mo d MDM 30-39 Min Completed 06/21/2021 82890 Hospital Subsequent Care Level 2 Completed 05/21/2021 46995 Office/Outpatient Established Mo d MDM 30-39 Min Completed 05/04/2021 19610 Hospital Subsequent Care Level 2 Completed 05/03/2021 91743 Hospital Subsequent Care Level 2 Completed 05/02/2021 31366 Hospital Subsequent Care Level 2 Completed 05/01/2021 30551 Hospital Subsequent Care Level 2 Completed 04/29/2021 48912 Hospital Initial Care Level 1 Co mpleted 03/12/2021 54883 Office/Outpatient New Low MDM 30 -44 Minutes Completed 03/08/2021 96009 Office/Outpatient Established Mo d MDM 30-39 Min Completed Medical Devices Description No Information Available Encounters Type Date Location Provider Dx Diagnosis Office Visit 07/28/2021 1:23a [facility] Hipolito teixeira, D.O. 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 J90 Pleural effusion, not elsewhere classifi ed J44.9 Chronic obstructive pulmonar y disease, unspecified E87.6 Hypokalemia Office Visit 05/03/2021 1:23a [facility] D reji Gordon D.O J15.1 Pneumonia due to Pseudomonas J90 Pleural effusion, not elsewh ere classified J44.9 Chronic obstructive pulmonar y disease, unspecified Office Visit 05/02/2021 1:23a [facility] Evelia Gordon D.O J15.1 Pneumonia due to Pseudomonas J90 Pleural effusion, not elsewh ere classified J44.9 Chronic obstructive pulmonar y disease, unspecified Office Visit 05/01/2021 1:23a [facility] D reji Gordon D.O J15.1 Pneumonia due to Pseudomonas J44.9 Chronic obstructive pulmonar y disease, unspecified J90 Pleural effusion, not elsewh ere classified Office Visit 04/29/2021 1:23a [facility] Sharda Green M.D. J15.1 Pneumonia due to Pseudomonas J44.9 Chronic obstructive pulmonar y disease, unspecified J96.11 Chronic respiratory failure with hypoxia J90 Pleural effusion, not elsewh ere classified Office Visit 03/12/2021 3:00p [facility] Pra padminiice Kiel Arthur, RPA-C D50.9 Iron deficiency anemia, unsp ecified R19.5 Other fecal abnormalities Z86.010 Personal history of colonic polyps Z80.0 Family history of malignant neoplasm of digestive organs Office Visit 03/08/2021 1:45p [facility] Sheng Thacker MD J44.9 Chronic obstructive pulmonary disease, u nspecified J96.11 Chronic respiratory failure with hypoxia 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 G47.33 Obstructive sleep apnea (maryann lt) (pediatric) 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 05/04/2021 J44.9 Chronic obstructive pulmonary di sease, unspecified Hipolito Medina D.O. 05/04/2021 E87.6 Hypokalemia Evelia Anderson.O. 05/03/2021 J15.1 Pneumonia due to Pseudomonas Maycol Gordon D.O 05/03/2021 J90 Pleural effusion, not elsewhere classified Shukri Gordon D.O 05/03/2021 J44.9 Chronic obstructive pulmonary di sease, unspecified Shukri Gordon D.O 05/02/2021 J15.1 Pneumonia due to Pseudomonas Maycol Gordon D.O 05/02/2021 J90 Pleural effusion, not elsewhere classified Shukri Gordon D.O 05/02/2021 J44.9 Chronic obstructive pulmonary di sease, unspecified Shukri Gordon D.O 05/01/2021 J15.1 Pneumonia due to Pseudomonas Maycol Gordon D.O 05/01/2021 J44.9 Chronic obstructive pulmonary di sease, unspecified Shukri Gordon D.O 05/01/2021 J90 Pleural effusion, not elsewhere classified Shukri Gordon D.O 04/29/2021 J15.1 Pneumonia due to Pseudomonas Sharda Rocha M.D. 04/29/2021 J44.9 Chronic obstructive pulmonary di sease, unspecified Sharda Napier M.D. 04/29/2021 J96.11 Chronic respiratory failure with hypoxia Sharda Napier M.D. 04/29/2021 J90 Pleural effusion, not elsewhere classified Sharda Napier M.D. 03/12/2021 D50.9 Iron deficiency anemia, unspecif ied Kiel Arthur, [facility] 03/12/2021 R19.5 Other fecal abnormalities aLura Dawkinsbrownrobert, [facility] 03/12/2021 Z86.010 Personal history of colonic poly ps Kiel Dawkinsantione, [facility] 03/12/2021 Z80.0 Family history of malignant neop lasm of digestive organs Kiel Arthur, [facility] 03/08/2021 J44.9 Chronic obstructive pulmonary di sease, unspecified Bentley Thacker MD 03/08/2021 J96.11 Chronic respiratory failure with hypoxia Bentley Thacker MD 03/08/2021 Z99.81 Dependence on supplemental oxyge n Bentley Thacker MD 03/08/2021 G47.33 Obstructive sleep apnea (adult) (pediatric) Bentley Thacker MD 03/08/2021 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 clint steroids Bentley Thacker MD 03/08/2021 Z79.899 [place] [facility] drug t herapy Bentley Thacker MD 03/08/2021 J30.9 Allergic rhinitis, unspecified L jack Thacker MD Plan of Treatment Future Appointment(s):* 08/29/2021 11:30 am - Bentley Thacker MD at [facility] 07/18/2021 - Bentley Thacker MD* J44.9 Chronic obstructive pulmonary disease, unspecified * G47.33 Obstructive sleep apnea (adult) (pediatric) * R91.8 Other nonspecific abnormal finding of lung field * J96.11 Chronic respiratory failure with hypoxia * Z99.81 Dependence on supplemental oxygen * 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mic steroids * Z79.899 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 He would much prefer this, as he says there are days he feels quite weak. Certainly, playing melody's advocate, if he had a lesion that required abdominal surgery, I do not think he would tolerate it well at this point. I discussed this at length with him and his .~ In view of the above, I will see him after his CT scan later this month. ~ He can, certainly, call sooner if problems arise with which we can be of assistance. ~ We will continue his current meds in the interim. * Follow up:* Needs appt after his CT scheduled for 08/07 Functional Status Description No Information Available Mental Status Description No Information Available Referrals Description No Information Available
--- OUTSIDE RECORDS SUMMARY | 2021-09-10 11:50 | CCD | Continuity of Care Document ---
Author Author Shukri HERNÁNDEZ DO Organization Unknown Address [address] [facility] [address] [place] [address] Phone [phone] Care Team Providers Care Ribbing Machine Operator Name Role Phone Bentley Thacker MD AUTM [phone] Arron Hernández JR, MD AUTM Unavailable [facility] AUTM [phone] Trino Betancourt MD AUTM [phone] Raciel Gill MD AUTM [phone] Morales Jade MD AUTM [phone] Bhavin Stanton MD AUTM [phone] Guero Norman MD AUTM [phone] [facility] AUTM [phone] [facility] AUTM [phone] Problems Active Problems Provider Date Benign essential hypertension Arron Hernández MD Onset: 0 06/05/2011 Pure hypercholesterolemia Arron Hernández MD Onset: 06/05 Peripheral vascular disease Arron Hernández MD Onset: Essential hypertension Arron Hernández MD Onset: 06/05/20 11 Iron deficiency anemia Arron Hernández MD Onset: 06/05/20 11 Pure hyperglyceridemia Arron Hernández MD Onset: 06/05/20 11 History of polyp of colon Arron Hernández MD Onset: 06/05 Asthma without status asthmaticus Arron Hernández MD Onse t: 06/05/2011 Malignant tumor of prostate Arron Hernández MD Onset: Obstructive sleep apnea syndrome Arron Hernández MD Onset : 11/08/2011 Social History Type Date Description Comments Sex Unknown ETOH Use Currently consumes alcohol about 1 alcoholic beverage per week Tobacco Use Start: Unknown End: Unknown Patient is a former smoker SMOKED FOR 30 YRS 2 PACKS A DAY Allergies, Adverse Reactions, Alerts Description No Known Drug Allergies Medications Active Medications SIG Qnty Indications Ordering Provide r Date Bacid Capsules one by mouth qid HINA Penn JR 05/09/2021 Ferrous Sulfate 325(65Fe) mg Table ts 1 by mouth daily 60tabs Arron Hernández MD 12/26/2020 Nystatin 839109Luxm/ML Suspension swish and spit 5ml as needed twice a day for thrush 200ml Co llsandra Hernández MD 06/23/2020 Pulmicort 0.5mg/2ML Suspension 2 puffs daily Arorn Hernández MD 05/19/2020 Mucinex DM Maximum Strength 60-1200mg Tablets ER 12HR 1 by mouth twice a day 30tabs Nurse #2 11/22 Acetaminophen 325mg Tablets 2 tabs by mouth as needed every 4 hours for pain or fever mdd=3 grams 100tabs Arron Hernández MD 11/22/2019 Incruse Ellipta 62.5mcg/Inh Aeroso l inhale one puff by mouth daily 30units Arron Hernández MD Areds twice a day Arron Hernández MD Prednisone 10mg Tablets 10mg alt with 15mg 30tabs Oniel Giang M.D. 07/08/2019 Magnesium 400mg Tablets 1 by mouth qd JESSICA Awad 02/18/2017 Ibuprofen 400mg Tablets take one tablet by mouth q6 hours as needed JESSICA Awad 02/18 Percocet 5-325mg Tablets 1 by mouth every 8 hour as needed pain 90tabs M54.31 Arron Hernández MD 02/09 Fluticasone Propionate 50mcg/Act Suspension 2 sprays each nostril daily 1units Arron guerrier MD 11/30/2014 Combivent 103-18mcg/Act Aerosol 2 puffs qid 3units Arron Hernández MD 02/13/2010 Levalbuterol HCL 1.25mg/3ML Nebuli zer Use 1 Vial Via Nebulizer Every 8 Hours 1350units Arron guerrier MD 10/16/2009 Symbicort 160-4.5mcg/Act Aerosol 2 puff bid 3units Unknown Solifenacin Succinate 10mg Tablets take one tablet by mouth @8am Unknown /0 000 Midodrine HCL 10mg Tablets 1 by mouth by mouth three times a day 90tabs Arron Hernández MD Zithromax 250mg Tablets 1 talbets Mon, Weds and Fri Unknown Melatonin 10mg Capsules two tab by mouth one hour before bed Unknown History Medications Mirtazapine 7.5mg Tablets take one tablet by mouth at bedtime 30tabs Arron Hernández MD 2020 - 07/06/2021 Diflucan 100mg Tablets 1 by mouth every day x 10 days 10tabs Arron Hernández MD 06/19/2021 - 07/06/2021 Medications Administered in Office Medication SIG Qnty Indications Ordering Provider Date Covid-19 vaccine, Unspecified Inj ection Unknown 11/26/2020 Administration Of Flu Vaccine Inj ection Kenroy Weston, [facility] 08/08/2015 Administration Of Flu Vaccine Inj ection Luciano Deleon D.O. 08/21 Administration Of Flu Vaccine Inj ection Arron Hernández MD 08/27/2004 Administration Of Flu Vaccine Inj ection Arron Hernández MD 08/16/2003 Administration Of Flu Vaccine Inj ection Arron Hernández MD 10/01/2002 Immunizations CPT Code Status Date Vaccine Lot # U-Flu Given 07/20/2020 Influenza,Unspecified U-Flu Given 07/19/2019 Influenza,Unspecified 53000 Given 07/17/2018 Shingrix Zoster Vaccine (HZV), Recombinant, Subunit, Adjuvanted U-Flu Given 07/08/2018 Influenza,Unspecified 13245 Given 02/24/2018 Shingrix 27928 Given 10/21/2016 Pneumovax 23 [id number] U-PneuC Given 10/14/2015 Prevnar 13 [id number] Given 08/08/2015 Fluvirin Virus Vaccine 44190 01 64027 Given 03/31/2008 Zoster Vaccine 92026 Given 08/18/2007 Influenza Virus Vaccine 73526 Given 10/09/2006 Influenza Virus Vaccine 31128 Given 09/26/2006 Pneumovax 23 03243 Given 08/21/2005 Influenza Virus Vaccine 53695 Given 08/27/2004 Influenza Virus Vaccine 39280 Given 08/16/2003 Influenza Virus Vaccine 96748 Given 10/01/2002 Influenza Virus Vaccine 34864 Given 05/25/1998 Tetanus Toxoid 84898 Refused 08/19/2018 Influenza Virus Vaccine, Quadrivalent (Cciiv4), [...] Date Facility Test Result H/L Range Note Ua Dipstick Only 07/09/2021 [facility] Lightning Rod Installer: Dr Arron Hernández [place], [place] [id number] [phone] Urine Color YELLOW Yellow Urine Appearance CLEAR Clear Urine PH 6.5 units 5.0 - 9.0 Urine Specific Mobile 1.015 1.005 - 1.030 Urine Leukocytes NEGATIVE Negative Urine Blood NEGATIVE Negative Urine Protein NEGATIVE Negative -Trace Urine Glucose NEGATIVE mg/dL Negative Urine Nitrite NEGATIVE Negative Urine Ketone NEGATIVE mg/dL Negative Urine Bilirubin NEGATIVE Negative Urine Urobilinogen 0.2 mg/dL 0.2 - 1.0 Manual Differential 07/06/2021 [facility] [address] [place] [address] [phone] Neutrophils 88 % High 28-66 Lymphocytes 5 % Low 16-44 Monocytes 7 % High 0-5 Platelet Estimate NORMAL Normal Normal Complete Blood Count 07/06/2021 [facility] Lightning Rod Installer: Dr Arron Hernández [place] [address] [phone] WBC 18.1 x10*3/UL High 4.1 - 10.9 1 RBC 4.93 x10*6/UL 4.20 - 6.30 Hemoglobin [...] 2.0 - 7.8 Comprehensive Chem Profile 07/06/2021 [facility] Lightning Rod Installer: Dr Arron Hernández [place] [address] [phone] Glucose 107 mg/dL High 74 - 99 2 BUN 28 mg/dL High 7 - 18 [...] mL/min >60 GFR >= 60 mL/min >60 3 Influenza A/B RSV Covid Amp 06/20/2021 [place] [address] [phone] Influenza A Amplification NEGATIVE Normal Negati ve 4 Influenza B Amplification NEGATIVE Normal Negative 5 RSV Amplification NEGATIVE Normal Negative 6 Sars Covid-19 Amplification NEGATIVE Normal Negative 7 Laboratory test finding 06/20/2021 [place] [address] [phone] NT-Pro BNP 698 pg/mL High <450 Thyroid Stimulating Hormone 0.820 uIU/ML Normal 0.358-3.740 Liver Profile 06/20/2021 [facility] [address] [place] [address] [phone] Ast/Sgot 115 U/L High 7-37 Alt/SGPT 244 U/L High 12-78 Alkaline Phosphatase 143 U/L High 45-117 Bilirubin,Total 0.3 mg/dL Normal 0.2-1.0 Bilirubin,Direct 0.1 mg/dL Normal 0.0-0.2 Total Protein 6.5 GM/DL Normal 6.4-8.2 Albumin 2.4 GM/DL Low 3.2-5.2 Albumin/Globulin Ratio 0.6 Normal Laboratory test finding 06/20/[address] [address] [phone] Lactic Acid Sepsis Protocol 1.1 mmol/L Normal 0.4- 2.0 8 Arterial Blood Gas 06/20/2021 [facility] [address] [place] [address] [phone] ABG pH (Arterial) 7.471 units High 7.350-7.450 ABG Partial Pressure Co2 38.5 mmHg Normal 35.0-45.0 ABG Partial Pressure O2 107.9 mmHg High 75.0-100.0 ABG Total Co2 28.6 mEq/L Normal 23.0-31.0 ABG Hco3 27.5 mEq/L High 22.0-26.0 ABG Base Excess 3.6 High -2.0-2.0 ABG Standard Hco3 27.7 mEq/L High 22.0-26.0 ABG O2 Saturation 98.3 % Normal 95.0-99.0 Istat Chem8+ Panel 06/20/2021 [facility] [address] [place], [place] [id number] [phone] iSTAT HCT 33.0 % Low 38.0-51.0 iSTAT Glucose 141 mg/dL High 70-105 iSTAT Sodium 136 mEq/L Normal 136-145 iSTAT Potassium 4.3 mEq/L Normal 3.5-5.1 iSTAT CA++ 4.7 mg/dL Normal 4.5-5.3 iSTAT Chloride 99 mEq/L Normal 98-109 iSTAT Co2 24.0 MM/L Normal 23.0-27.0 iSTAT BUN 28 mg/dL High 8-26 iSTAT Creatinine 0.4 mg/dL Low 0.6-1.3 CBC With Differential 06/20/2021 [facility] [address] [place], [place] [id number] [phone] White Blood Count 8.8 10 Normal 4.0-10.0 [...] 36.0-66.0 Lymph % 6.3 % Low 24.0-44.0 Spalding % 5.3 % Normal 2.0-8.0 Eos % 0.0 % Normal 0.0-3.0 Baso % 0.3 % Normal 0.0-1.0 Immature Granulocyte % 0.8 % Normal 0-3.0 Nucleated Red Blood Cell % 0.0 % Normal 0-0 Neutrophils # 7.7 10 Normal 1.5-8.5 Lymph # 0.6 10 Low 1.5-5.0 Spalding # 0.5 10 Normal 0.0-0.8 Eos # 0.0 10 Normal 0.0-0.5 Baso # 0.0 10 Normal 0.0-0.2 Complete Blood Count 06/19/2021 [facility] max[facility] Lightning Rod Installer: [place] [address] [phone] WBC 10.3 x10*3/UL 4.1 - 10.9 RBC 4.70 x10*6/UL 4.20 - 6.30 Hemoglobin 11.2 g/dL Low 12.0 - 18.0 9 Hematocrit 33.0 % Low 37.0 - 51.0 [...] 2.0 - 7.8 Comprehensive Chem Profile 06/19/2021 [facility] Lightning Rod Installer: [place] [address] [phone] Glucose 149 mg/dL High 74 - 99 10 BUN 30 mg/dL High 7 - 18 [...] mL/min >60 GFR >= 60 mL/min >60 11 Complete Blood Count 05/09/2021 [facility] Lightning Rod Installer: Dr Arron Hernández [place] [address] [phone] WBC 16.6 x10*3/UL High 4.1 - 10.9 12 RBC 4.62 x10*6/UL 4.20 - 6.30 Hemoglobin [...] 2.0 - 7.8 Basic Metabolic Panel 05/09/2021 [facility] Lightning Rod Installer: Dr Arron Hernán[place] [address] [phone] Glucose 87 mg/dL 74 - 99 13 BUN 14 mg/dL 7 - 18 Creatinine 0.8 mg/dL 0.6 - 1.3 Sodium 136 mEq/L 136 - 145 Potassium 3.6 mEq/L 3.5 - 5.1 Chloride 100 mEq/L 98 - 107 Carbon Dioxide 26 mEq/L 21 - 32 Calcium 8.4 mg/dL Low 8.5 - 10.1 14 GFR >= 60 mL/min >60 GFR >= 60 mL/min >60 15 CBC With Differential 04/28/[address] [address] [phone] White Blood Count 21.6 10 High 4.0-10.0 [...] % 0.0 % Normal 0-0 Differential 04/28/2021 [facility] [address] [place] [address] [phone] Neutrophils 62 % Normal 28-66 Bands 30 % High < 11 Lymphocytes 1 % Low 16-44 Monocytes 5 % Normal 0-5 Eosinophils 2 % Normal 0-3 Anisocytosis 1+ Normal Microcytosis 2+ Normal Laboratory test finding 04/28/[address] [address] [phone] Platelet Estimate NORMAL Normal Normal Respiratory Panel 04/28/2021 [facility] [address] [place] [address] [phone] Respiratory Panel This respiratory <SEE NOTE> 16 Venous Blood Gas 04/28/2021 [facility] [address] [place] [address] [phone] Venous PH 7.424 units Normal 7.330-7.430 Venous Partial Pressure Co2 33.9 mmHg Low 38.0-50.0 Venous Partial Pressure O2 65.4 mmHg High 30.0-50.0 Venous Total Co2 22.7 mEq/L Low 24.0-28.0 Venous Hco3 21.7 mEq/L Low 23.0-27.0 Venous Base Excess -2.0 Normal -2.0-2.0 Venous Standard Hco3 22.7 mEq/L Normal Venous O2 Saturation 92.9 % High 60.0-80.0 Laboratory test finding 04/28/[address] [address] [phone] Lactic Acid Sepsis Protocol 1.6 mmol/L Normal 0.4- 2.0 17 Cardiac Marker Panel 04/28/2021 [facility] [address] [place] [address] [phone] CPK Creatine Phosphokinase 143 U/L Normal 39-30 8 CK-MB Value Mass 3.2 NG/ML Normal <3.6 MB/CK Relative Index 2.24 Normal < Or =4 18 Troponin I 0.07 NG/ML Normal < 0.10 19 Liver Profile 04/28/2021 [facility] [address] [place] [address] [phone] Ast/Sgot 33 U/L Normal 7-37 Alt/SGPT 56 U/L Normal 12-78 Alkaline Phosphatase 78 U/L Normal 45-117 Bilirubin,Total 0.5 mg/dL Normal 0.2-1.0 Bilirubin,Direct 0.2 mg/dL Normal 0.0-0.2 Total Protein 6.2 GM/DL Low 6.4-8.2 Albumin 2.2 GM/DL Low 3.2-5.2 Albumin/Globulin Ratio 0.6 Normal Basic Metabolic Profile 04/28/[address] [address] [phone] Glucose, Fasting 125 mg/dL High 70-100 Blood Urea Nitrogen 28 mg/dL High 7-18 Creatinine For GFR 1.13 mg/dL Normal 0.70-1.30 Glomerular Filtration Rate > 60.0 Normal >42 2 0 Sodium Level 130 mEq/L Low 136-145 Potassium Serum 4.9 mEq/L Normal 3.5-5.1 Chloride Level 99 mEq/L Normal 98-107 Carbon Dioxide Level 22 mEq/L Normal 21-32 Anion Gap 9 mEq/L Normal 8-16 Calcium Level 8.3 mg/dL Low 8.8-10.2 Laboratory test finding 04/28/[address] [address] [phone] NT-Pro BNP 2940 pg/mL High <450 Thyroxine (T4) 6.4 g/dL Normal 4.5-12.0 Thyroid Stimulating Hormone 1.020 uIU/ML Normal 0.358-3.740 Coronavirus 2019 Nasopharygeal 04/05/[address] [address] [phone] Coronavirus 2019 Nasopharygeal NOTE: The COVID- <SEE N OTE> 21 Complete Blood Count 01/12/2021 [facility] Lightning Rod Installer: Dr Arron Hernández [place] [address] [phone] WBC 11.9 x10*3/UL High 4.1 - 10.9 22 RBC 5.32 x10*6/UL 4.20 - 6.30 Hemoglobin 12.4 g/dL 12.0 - 18.0 Hematocrit 38.2 % 37.0 - 51.0 MCV 71.7 fL Low 80.0 - 97.0 MCH 23.4 pg Low 26.0 - 32.0 MCHC 32.6 g/dL 31.0 - 38.0 RDW 16.5 % High 11.6 - 13.7 PLT 197 x10*3/UL 140 - 440 MPV 7.8 FL 7.8 - 11.0 Lymph % 4.4 % Low 10.0 - 58.5 Mid % 5.7 % 1.7 - 9.3 Neut % 89.9 % 37.0 - 92.0 Lymph # 0.5 x10*3/UL Low 0.6 - 4.1 Mid # 0.7 x10*3/UL High 0.1 - 0.6 Neut # 10.7 x10*3/UL High 2.0 - 7.8 Total Iron Binding Capacit 01/12/2021 [place] [address] [phone] Iron (Fe) 92 g/dL Normal 65-175 Total Iron Binding Capacity 318 g/dL Normal 250-450 Percent Saturation 28.9 % Normal 19.7-50.0 1 NOTE: RESULT VERIFIED .MANUAL DIFFERENTIAL SENT TO [facility] FOR MAREN IFICATION. 2 100-125 mg/dL PRE-DIABET ES/FASTING >126 mg/dL DIABETES/FASTING 3 CHRONIC KIDNEY DISEASE STAGI NG PER NKF STAGE I & II GFR >= 60 NORMAL TO MILDLY DECREASED STAGE III GFR 30-59 MODERATELY DECREASED STAGE IV GFR 15-29 SEVERELY DECREASED STAGE V GFR <15 VERY LITTLE GFR LEFT ESRD GFR <15 ON CONSTRUCTION EQUIPMENT MECHANIC 4 Negative results do not prec lude influenza or RSV virus infection and should not be used as the sole basis for treatment or other patient management decisions. 5 Negative results do not prec lude influenza or RSV virus infection and should not be used as the sole basis for treatment or other patient management decisions. 6 Negative results do not prec lude influenza or RSV virus infection and should not be used as the sole basis for treatment or other patient management decisions. 7 A false negative result may occur if [...] pathogens. DISCLAIMER: Testing was performed using the [employer] SARS-CoV-2 test. This test was developed and its performance characteristics determined by [employer]. This test has not been FDA cleared [...] the authorization is terminated or revoked sooner. 8 Y/N query for Sepsis Lactate Rule: Y 9 NOTE: RESULT VERIFIED. 10 100-125 mg/dL PRE-DIABET ES/FASTING >126 mg/dL DIABETES/FASTING 11 CHRONIC KIDNEY DISEASE STAGI NG PER NKF STAGE I & II GFR >= 60 NORMAL TO MILDLY DECREASED STAGE III GFR 30-59 MODERATELY DECREASED STAGE IV GFR 15-29 SEVERELY DECREASED STAGE V GFR <15 VERY LITTLE GFR LEFT ESRD GFR <15 ON CONSTRUCTION EQUIPMENT MECHANIC 12 NOTE: RESULT VERIFIED. 13 100-125 mg/dL PRE-DIABET ES/FASTING >126 mg/dL DIABETES/FASTING 14 NOTE: RESULT VERIFIED. 15 CHRONIC KIDNEY DISEASE STAGI NG PER NKF STAGE I & II GFR >= 60 NORMAL TO MILDLY DECREASED STAGE III GFR 30-59 MODERATELY DECREASED STAGE IV GFR 15-29 SEVERELY DECREASED STAGE V GFR <15 VERY LITTLE GFR LEFT ESRD GFR <15 ON CONSTRUCTION EQUIPMENT MECHANIC 16 This respiratory PCR panel d etects Influenza A H1, H3 and 2009 H1 viruses, Influenza B virus, Resp iratory Syncytial Virus, Human metapneumovirus, Parainfluenza virus 1, 2, 3 and 4, Adenovirus, Rhinovirus/Enterovirus, Coronavirus HKU1, NL63, OC43, 229E and SARS-CoV-2 (COVID 19), Bordetella pertussis, Bordetella parapertussis, Mycoplasma pneumoniae and Chlamydia pneumoniae. NEGATIVE by MULTIPLEXED NUCLEIC ACID PCR SARS-CoV-2 (COVID 19) NEGATIVE - SARS-CoV-2 (COVID19) 17 Y/N query for Sepsis Lactate Rule: Y 18 DIAGNOSIS CRITERIA MMB ng/ml Relative Index (RI) NON-AMI < or = 5 N/A MONTEMAYOR ZONE > 5 < or = 4 AMI > 5 > 4 19 Troponin I Reference Interva l for [employer] LOCI: 99th Percentile= 0.00-0.045 ng/ml Risk Stratification: <= 0.10 ng/ml Decreased Risk for Adverse Clinical Events. 0.10-1.50 ng/ml Increased Risk for Adv erse Clinical Events. Evaluation of additional criterion and/or repeat testing in 2-6 hours is suggested to rule out myocardial damage. >= 1.50 ng/ml Indicative of Myocardial Injury. 20 Units are mL/min/1.73 m2 Chronic Kidney Disease Staging per NKF: Stage I & II GFR >=60 Normal to Mildly Decreased Stage III GFR 30-59 Moderately Decreased Stage IV GFR 15-29 Severely Decreased Stage V GFR <15 Very Little GFR Left ESRD GFR <15 on CONSTRUCTION EQUIPMENT MECHANIC 21 NOTE: The COVID-19 assay is under Emergency Use Authorization (EUA) by the U.S. Food and Drug Administration. [facility] is designated as a high complexity laboratory by the Clinical Laboratory Improvement Amendments of 1988(CLIA) and is qualified to perform this test. ASSAY INFORMATION: Real Time RT-PCR or TMA. Both RT-PCR and TMA are molecular testing modalities and are recommended by the CDC for passenger travel. Not Detected 22 NOTE: cbc verified Procedures Date Code Description Status 06/19/2021 51245 Office/Outpatient Established Mo d MDM 30-39 Min Completed 05/23/2021 75026 Office/Outpatient Established Mo d MDM 30-39 Min Completed 05/09/2021 87554 [facility] SRV W/I 7 Days Of DC, C omm W/I 2 Dys Med Rec Completed 03/22/2016 [id number] Colonoscopy Completed 02/03/2015 [id number] Colonoscopy Completed 01/06/2014 [id number] Colonoscopy Completed 05/24/2011 [id number] Colonoscopy Completed 04/21/2007 [id number] Colonoscopy Completed Medical Devices Description No Information Available Encounters Type Date Location Provider Dx Diagnosis [facility] J[facility]9 Chronic obstructive pulmonary disease, u nspecified J47.9 Bronchiectasis, uncomplicate d J96.11 Chronic respiratory failure with hypoxia Z79.52 assistant terminal manager (current) use of s ystemic steroids G47.33 Obstructive sleep apnea (maryann lt) (pediatric) J18.1 Lobar pneumonia, unspecified organism I95.1 Orthostatic hypotension D64.9 Anemia, unspecified Office Visit 05/23/2021 10:40a [facility] MD J44.9 Chronic obstructive pulmonary disease, u nspecified J96.11 Chronic respiratory failure with hypoxia D64.9 Anemia, unspecified G47.33 Obstructive sleep apnea (maryann lt) (pediatric) Z79.52 assistant terminal manager (current) use of s ystemic steroids E78.00 Pure hypercholesterolemia, u nspecified I95.1 Orthostatic hypotension Office Visit 05/09/2021 9:40a [facility] J18.1 Lobar pneumonia, unspecified organism I10 Essential (primary) hyperten zac J44.9 Chronic obstructive pulmonar y disease, unspecified G47.33 Obstructive sleep apnea (maryann lt) (pediatric) D64.9 Anemia, unspecified J96.11 Chronic respiratory failure with hypoxia M48.061 Spinal stenosis, lumbar rebecca on without neurogenic douglas Z79.52 penitentiary (current) use of s ystemic steroids Assessments Date Code Description Provider 07/06/2021 J90 Pleural effusion, not elsewhere classified Trino Hernández, DO 07/06/2021 J18.1 Lobar pneumonia, unspecified org anism Trino Hernández, DO 07/06/2021 J44.9 Chronic obstructive pulmonary di sease, unspecified Trino Hernández, DO 07/06/2021 R74.01 Elevation of levels of liver tra nsaminase levels Trino Hernández, DO 07/06/2021 D64.9 Anemia, unspecified Trino Hernández, DO 07/06/2021 B37.9 Candidiasis, unspecified Zay Hernández, DO 07/06/2021 I95.1 Orthostatic hypotension Ena Hernández, DO 06/19/2021 J44.9 Chronic obstructive pulmonary di sease, unspecified Arron Hernández MD 06/19/2021 J47.9 Bronchiectasis, uncomplicated Co nghia Hernández MD 06/19/2021 J96.11 Chronic respiratory failure with hypoxia Arron Hernández MD 06/19/2021 Z79.52 assistant terminal manager (current) use of syste clint steroids Arron Hernández MD 06/19/2021 G47.33 Obstructive sleep apnea (adult) (pediatric) Arron Hernández MD 06/19/2021 J18.1 Lobar pneumonia, unspecified org anism Arron Hernández MD 06/19/2021 I95.1 Orthostatic hypotension Arron Hernández MD 06/19/2021 D64.9 Anemia, unspecified Arron lao MD 05/23/2021 J44.9 Chronic obstructive pulmonary di sease, unspecified Arron Hernández MD 05/23/2021 J96.11 Chronic respiratory failure with hypoxia Arron Hernández MD 05/23/2021 D64.9 Anemia, marissaified Arron lao MD 05/23/2021 G47.33 Obstructive sleep apnea (adult) (pediatric) Arron Hernández MD 05/23/2021 Z79.52 assistant terminal manager (current) use of syste clint steroids Arron Hernández MD 05/23/2021 E78.00 Pure hypercholesterolemia, unspe cified Arron Hernández MD 05/23/2021 I95.1 Orthostatic hypotension Arron Hernández MD 05/09/2021 J18.1 Lobar pneumonia, unspecified org [...] neurogenic claudication HINA Penn JR 05/09/2021 Z79.52 assistant terminal manager (current) use of syste clint steroids HINA Penn JR 01/12/2021 D64.9 Anemia, unspecified Arron lao MD 01/12/2021 D64.9 Anemia, unspecified Lab Schedule Plan of Treatment Future Appointment(s):* 08/23/2021 11:00 am - Arron Hernández MD at [facility] 06/19/2021 - Arron Hernández MD* J44.9 Chronic obstructive pulmonary disease, unspecified * J47.9 Bronchiectasis, uncomplicated * J96.11 Chronic respiratory failure with hypoxia * Z79.52 penitentiary (current) use of systemic steroids * G47.33 [...]
--- OUTSIDE RECORDS SUMMARY | 2021-09-10 11:50 | CCD | Continuity of Care Document ---
Author Author Lab Kath, Shukri Newton Organization Unknown Address [address] [address] Phone Unavailable Care Team Providers Care Human Resource Manager Name Role Phone Bentley Thacker MD AUTM [phone] Arron Deras JR, MD AUTM Unavailable [facility] AUTM [phone] Trino Betancourt MD AUTM Raciel Gill MD AUTM [phone] Morales Jade MD AUTM [phone] Bhavin Stanton MD AUTM [phone] Guero Norman MD AUTM [phone] [facility] AUTM [phone] [facility] AUTM [phone] Problems Active Problems Provider Date Benign essential [...] daily 60tabs Arron Deras MD 12/26/2020 Nystatin 245039Niko/ML Suspension swish and spit 5ml as needed [...] with 15mg 30tabs Oniel Giang M.D. 07/08/2019 Ibuprofen 400mg Tablets take one tablet [...] 103-18mcg/Act Aerosol 2 puffs qid 3units Arron Deras MD 02/13/2010 Levalbuterol HCL 1.25mg/3ML Nebuli zer Use 1 Vial Via Nebulizer Every 8 Hours 1350units Arron guerrier MD 10/16/2009 Symbicort 160-4.5mcg/Act Aerosol 2 puff bid 3units Unknown Solifenacin Succinate 10mg Tablets take one tablet by mouth @8am Unknown 0 000 Midodrine HCL 10mg Tablets 1 by mouth by mouth three times a day 90tabs Arron Deras MD Zithromax 250mg Tablets 1 talbets [...] MD 08/16/2003 Administration Of Flu Vaccine Inj farida Deras MD 10/01/2002 Immunizations CPT Code Status Date Vaccine Lot # U-Flu Given 07/20/2020 Influenza,Unspecified U-Flu Given 07/19/2019 Influenza,Unspecified [id number] Given 07/17/2018 Shingrix Zoster Vaccine (HZV), Recombinant, Subunit, Adjuvanted U-Flu Given 07/08/2018 Influenza,Unspecified 81340 Given 02/24/2018 Shingrix 66116 Given 10/21/2016 Pneumovax 23 [id number] U-PneuC Given 10/14/2015 Prevnar 13 [id number] Given 08/08/2015 Fluvirin Virus Vaccine 57172 01 39409 Given 03/31/2008 Zoster Vaccine 73842 Given 08/18/2007 Influenza Virus Vaccine 88992 Given 10/09/2006 Influenza Virus Vaccine 75227 Given 09/26/2006 Pneumovax 23 69359 Given 08/21/2005 Influenza Virus Vaccine 06348 Given 08/27/2004 Influenza Virus Vaccine 30965 Given 08/16/2003 Influenza Virus Vaccine 97663 Given 10/01/2002 Influenza Virus Vaccine 54290 Given 05/25/1998 Tetanus Toxoid 97385 Refused 08/19/2018 Influenza Virus Vaccine, Quadrivalent (Cciiv4), [...] H/L Range Note Liver Function Profile 07/18/2021 [facility] Armament Repairer: [place] [address] [phone] Alk. Phosphatase 81 mg/dL 46 - 116 Total Bilirubin 0.3 mg/dL 0.2 - 1.0 Ast (Sgot) 33 U/L 15 - 37 Alt (SGPT) 69 U/L 12 - 78 Albumin 2.9 g/dL Low 3.4 - 5.0 Total Protein 6.6 g/dL 6.4 - 8.2 Direct Bilirubin 0.1 mg/dL 0.0 - 0.2 A/G Ratio 0.78 CALC Low 1.00 - 1.90 Complete Blood Count 07/18/2021 [facility] Armament Repairer: [place] [address] [phone] WBC 11.5 x10*3/UL High 4.1 - 10.9 [...] 2.0 - 7.8 Ua Dipstick Only 07/09/2021 [facility] Armament Repairer: [place] [address] [phone] Urine Color YELLOW Yellow Urine Appearance CLEAR Clear Urine PH 6.5 units 5.0 - 9.0 Urine Specific [place] 1.015 1.005 - 1.030 Urine Leukocytes NEGATIVE Negative Urine Blood NEGATIVE Negative Urine Protein NEGATIVE Negative -Trace Urine Glucose NEGATIVE mg/dL Negative Urine Nitrite NEGATIVE Negative Urine Ketone NEGATIVE mg/dL Negative Urine Bilirubin NEGATIVE Negative Urine Urobilinogen 0.2 mg/dL 0.2 - 1.0 Manual Differential 07/06/2021 [facility] [address] [place] [address] [phone] Neutrophils 88 % High 28-66 Lymphocytes 5 % Low 16-44 Monocytes 7 % High 0-5 Platelet Estimate NORMAL Normal Normal Complete Blood Count 07/06/2021 [facility] Armament Repairer: [place] [address] [phone] WBC 18.1 x10*3/UL High 4.1 - 10.9 [...] 2.0 - 7.8 Comprehensive Chem Profile 07/06/2021 [facility] Armament Repairer: Dr [place]ron [place], [place] [id number] [phone] Glucose 107 mg/dL High 74 - 99 [...] 4 Influenza A/B RSV Covid Amp 06/20/[address] [address] [phone] Influenza A Amplification NEGATIVE Normal Negati ve 5 Influenza B Amplification NEGATIVE Normal Negative 6 RSV Amplification NEGATIVE Normal Negative 7 Sars Covid-19 Amplification NEGATIVE Normal Negative 8 Laboratory test finding 06/20/2021 [place] [address] [phone] NT-Pro BNP 698 pg/mL High <450 Thyroid Stimulating Hormone 0.820 uIU/ML Normal 0.358-3.740 Liver Profile 06/20/[address] [address] [phone] Ast/Sgot 115 U/L High 7-37 Alt/SGPT 244 U/L High 12-78 Alkaline Phosphatase 143 U/L High 45-117 Bilirubin,Total 0.3 mg/dL Normal 0.2-1.0 Bilirubin,Direct 0.1 mg/dL Normal 0.0-0.2 Total Protein 6.5 GM/DL Normal 6.4-8.2 Albumin 2.4 GM/DL Low 3.2-5.2 Albumin/Globulin Ratio 0.6 Normal Laboratory test finding 06/20/[address] [address] [phone] Lactic Acid Sepsis Protocol 1.1 mmol/L Normal 0.4- 2.0 9 Arterial Blood Gas 06/20/[address] [address] [phone] ABG pH (Arterial) 7.471 units High 7.350-7.450 ABG Partial Pressure Co2 38.5 mmHg Normal 35.0-45.0 ABG Partial Pressure O2 107.9 mmHg High 75.0-100.0 ABG Total Co2 28.6 mEq/L Normal 23.0-31.0 ABG Hco3 27.5 mEq/L High 22.0-26.0 ABG Base Excess 3.6 High -2.0-2.0 ABG Standard Hco3 27.7 mEq/L High 22.0-26.0 ABG O2 Saturation 98.3 % Normal 95.0-99.0 Istat Chem8+ Panel 06/20/2021 [facility] [address]ter [address] [place], [place] [address] [phone] iSTAT HCT 33.0 % Low 38.0-51.0 iSTAT Glucose 141 mg/dL High 70-105 iSTAT Sodium 136 mEq/L Normal 136-145 iSTAT Potassium 4.3 mEq/L Normal 3.5-5.1 iSTAT CA++ 4.7 mg/dL Normal 4.5-5.3 iSTAT Chloride 99 mEq/L Normal 98-109 iSTAT Co2 24.0 MM/L Normal 23.0-27.0 iSTAT BUN 28 mg/dL High 8-26 iSTAT Creatinine 0.4 mg/dL Low 0.6-1.3 CBC With Differential 06/20/2021 [facility] [address] [place] [address] [phone] White Blood Count 8.8 10 Normal 4.0-10.0 [...] 36.0-66.0 Lymph % 6.3 % Low 24.0-44.0 Bulloch % 5.3 % Normal 2.0-8.0 Eos % 0.0 % Normal 0.0-3.0 Baso % 0.3 % Normal 0.0-1.0 Immature Granulocyte % 0.8 % Normal 0-3.0 Nucleated Red Blood Cell % 0.0 % Normal 0-0 Neutrophils # 7.7 10 Normal 1.5-8.5 Lymph # 0.6 10 Low 1.5-5.0 Bulloch # 0.5 10 Normal 0.0-0.8 Eos # 0.0 10 Normal 0.0-0.5 Baso # 0.0 10 Normal 0.0-0.2 Complete Blood Count 06/19/2021 [facility] Armament Repairer: [place] [address] [phone] WBC 10.3 x10*3/UL 4.1 - 10.9 RBC [...] 2.0 - 7.8 Comprehensive Chem Profile 06/19/2021 [facility] Armament Repairer: [place] [address] [phone] Glucose 149 mg/dL High 74 - 99 [...] mL/min >60 12 Complete Blood Count 05/09/2021 [facility] Armament Repairer: Dr Arron Deras [place], [place] [id number] [phone] WBC 16.6 x10*3/UL High 4.1 - 10.9 [...] 2.0 - 7.8 Basic Metabolic Panel 05/09/2021 [facility] Armament Repairer: Dr Arron Deras [place], [place] [id number] [phone] Glucose 87 mg/dL 74 - 99 14 [...] mL/min >60 16 CBC With Differential 04/28/2021 [facility] [address] [place] [address] [phone] White Blood Count 21.6 10 High 4.0-10.0 [...] % 0.0 % Normal 0-0 Differential 04/28/[address] [address] [phone] Neutrophils 62 % Normal 28-66 Bands 30 % High < 11 Lymphocytes 1 % Low 16-44 Monocytes 5 % Normal 0-5 Eosinophils 2 % Normal 0-3 Anisocytosis 1+ Normal Microcytosis 2+ Normal Laboratory test finding 04/28/2021 [facility] [address] [place] [address] [phone] Platelet Estimate NORMAL Normal Normal Respiratory Panel 04/28/[address] [address] [phone] Respiratory Panel This respiratory <SEE NOTE> 17 Venous Blood Gas 04/28/[address] [address] [phone] Venous PH 7.424 units Normal 7.330-7.430 Venous Partial Pressure Co2 33.9 mmHg Low 38.0-50.0 Venous Partial Pressure O2 65.4 mmHg High 30.0-50.0 Venous Total Co2 22.7 mEq/L Low 24.0-28.0 Venous Hco3 21.7 mEq/L Low 23.0-27.0 Venous Base Excess -2.0 Normal -2.0-2.0 Venous Standard Hco3 22.7 mEq/L Normal Venous O2 Saturation 92.9 % High 60.0-80.0 Laboratory test finding 04/28/2021 [facility] [address] [place] [address] [phone] Lactic Acid Sepsis Protocol 1.6 mmol/L Normal 0.4- 2.0 18 Cardiac Marker Panel 04/28/2021 [facility] [address] [place] [address] [phone] CPK Creatine Phosphokinase 143 U/L Normal 39-30 8 CK-MB Value Mass 3.2 NG/ML Normal <3.6 MB/CK Relative Index 2.24 Normal < Or =4 19 Troponin I 0.07 NG/ML Normal < 0.10 20 Liver Profile 04/28/2021 [facility] n[facility] [address] [place] [address] [phone] Ast/Sgot 33 U/L Normal 7-37 Alt/SGPT 56 U/L Normal 12-78 Alkaline Phosphatase 78 U/L Normal 45-117 Bilirubin,Total 0.5 mg/dL Normal 0.2-1.0 Bilirubin,Direct 0.2 mg/dL Normal 0.0-0.2 Total Protein 6.2 GM/DL Low 6.4-8.2 Albumin 2.2 GM/DL Low 3.2-5.2 Albumin/Globulin Ratio 0.6 Normal Basic Metabolic Profile 04/28/[address] [address] [phone] Glucose, Fasting 125 mg/dL High 70-100 Blood [...] mg/dL Low 8.8-10.2 Laboratory test finding 04/28/2021 [facility] [address] [place] [address] [phone] NT-Pro BNP 2940 pg/mL High <450 Thyroxine (T4) 6.4 g/dL Normal 4.5-12.0 Thyroid Stimulating Hormone 1.020 uIU/ML Normal 0.358-3.740 Coronavirus 2019 Nasopharygeal 04/05/[address] [address] [phone] Coronavirus 2019 Nasopharygeal NOTE: The COVID- <SEE N OTE> 22 1 NOTE: RESULT VERIFIED. 2 NOTE: RESULT VERIFIED .MANUAL DIFFERENTIAL SENT TO [facility] FOR MAREN IFICATION. 3 100-125 mg/dL PRE-DIABET ES/FASTING >126 mg/dL DIABETES/FASTING 4 CHRONIC KIDNEY DISEASE STAGI NG PER NKF STAGE I & II GFR >= 60 NORMAL TO MILDLY DECREASED STAGE III GFR 30-59 MODERATELY DECREASED STAGE IV GFR 15-29 SEVERELY DECREASED STAGE V GFR <15 VERY LITTLE GFR LEFT ESRD GFR <15 ON HARP MAKER 5 Negative results do not prec lude [...] pathogens. DISCLAIMER: Testing was performed using the [employer] SARS-CoV-2 test. This test was developed and its performance characteristics determined by [employer]. This test has not been FDA cleared [...] LITTLE GFR LEFT ESRD GFR <15 ON HARP MAKER 13 NOTE: RESULT VERIFIED. 14 100-125 mg/dL PRE-DIABET ES/FASTING >126 mg/dL DIABETES/FASTING 15 NOTE: RESULT VERIFIED. 16 CHRONIC KIDNEY DISEASE STAGI NG PER NKF STAGE I & II GFR >= 60 NORMAL TO MILDLY DECREASED STAGE III GFR 30-59 MODERATELY DECREASED STAGE IV GFR 15-29 SEVERELY DECREASED STAGE V GFR <15 VERY LITTLE GFR LEFT ESRD GFR <15 ON HARP MAKER 17 This respiratory PCR panel d etects [...] Troponin I Reference Interva l for Siemens [email or web address] LOCI: 99th Percentile= 0.00-0.045 ng/ml Risk Stratification: [...] Little GFR Left ESRD GFR <15 on HARP MAKER 22 NOTE: The COVID-19 assay is under Emergency Use Authorization (EUA) by the U.S. Food and Drug Administration. [facility] is designated as a high complexity laboratory by the Clinical Laboratory Improvement Amendments of 1988(CLIA) and is qualified to perform this test. ASSAY INFORMATION: Real Time RT-PCR or TMA. Both RT-PCR and TMA are molecular testing modalities and are recommended by the CDC for passenger travel. Not Detected Procedures Date Code Description Status 06/19/2021 65325 Office/Outpatient Established Mo d MDM 30-39 Min Completed 05/23/2021 34589 Office/Outpatient Established Mo d MDM 30-39 Min Completed 05/09/2021 34627 [facility] SRV W/I 7 Days Of DC, C omm W/I 2 Dys Med Rec Completed 03/22/2016 [id number] Colonoscopy Completed 02/03/2015 [id number] Colonoscopy Completed 01/06/2014 [id number] Colonoscopy Completed 05/24/2011 [id number] Colonoscopy Completed 04/21/2007 [id number] Colonoscopy Completed Medical Devices Description No Information Available Encounters Type Date Location Provider Dx Diagnosis Office Visit 06/19/2021 1:30p [facility] Intern[facility] kellogg MD J44.9 Chronic obstructive pulmonary disease, u nspecified J47.9 Bronchiectasis, uncomplicate d J96.11 Chronic respiratory failure with hypoxia 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 Lito marcie Townsend JR, PA J18.1 Lobar pneumonia, unspecified organism I10 Essential (primary) hyperten zac J44.9 Chronic obstructive pulmonar y disease, unspecified G47.33 Obstructive sleep apnea (maryann lt) (pediatric) D64.9 Anemia, unspecified J96.11 Chronic respiratory failure with hypoxia M48.061 Spinal stenosis, lumbar rebecca on without neurogenic douglas Z79.52 [facility] (current) use of s ystemic steroids Assessments Date Code Description Provider 07/09/2021 I10 Essential (primary) hypertension Trino Deras, DO 07/09/2021 I10 Essential (primary) hypertension Lab Schedule 07/06/2021 J90 Pleural effusion, not elsewhere classified Trino Deras, 07/06/2021 J18.1 Lobar pneumonia, unspecified org anism Trino Deras, DO 07/06/2021 J44.9 Chronic obstructive pulmonary di sease, unspecified Trino Deras, DO 07/06/2021 R74.01 Elevation of levels of liver tra nsaminase levels Trino Deras, 07/06/2021 D64.9 Anemia, unspecified Trino Dreas, DO 07/06/2021 B37.9 Candidiasis, unspecified Zay Deras, DO 07/06/2021 I95.1 Orthostatic hypotension Ena Deras, 06/19/2021 J44.9 Chronic obstructive pulmonary di sease, unspecified Arron Deras MD 06/19/2021 J47.9 Bronchiectasis, uncomplicated Co nghia Deras MD 06/19/2021 J96.11 Chronic respiratory failure with hypoxia Arron Deras MD 06/19/2021 Z79.52 rodent exterminator (current) use of syste clint steroids Arron [...] (adult) (pediatric) Arron Deras MD 05/23/2021 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 * 08/23/2021 11:00 am - Arron Deras MD at [facility] 06/19/2021 - Arron Deras MD* J44.9 Chronic obstructive pulmonary disease, unspecified * J47.9 Bronchiectasis, uncomplicated * J96.11 Chronic respiratory failure with hypoxia * Z79.52 rodent exterminator (current) use of systemic steroids * G47.33 [...]
--- OUTSIDE RECORDS SUMMARY | 2021-09-10 11:50 | CCD | Continuity of Care Document ---
Author Author Lab Kath, Shukri Newton Organization Unknown Address [address] [address] Phone Unavailable Care Team Providers Care Crossbow Maker Name Role Phone Bentley Thacker MD AUTM [phone] Arron Deras JR, MD AUTM Unavailable [facility] AUTM [phone] Trino Betancourt MD AUTM [phone] Raciel Gill MD AUTM [phone] Morales Jade MD AUTM [phone] Bhavin Stanton MD AUTM [phone] Guero Norman MD AUTM [phone] [facility] AUTM [phone] [facility] AUTM [phone] Problems Active Problems Provider Date Benign essential [...] daily 60tabs Arron Deras MD 12/26/2020 Nystatin [id number] Suspension swish and spit 5ml as needed [...] Given 07/20/2020 Influenza,Unspecified U-Flu Given 07/19/2019 Influenza,Unspecified 05564 Given 07/17/2018 Shingrix Zoster Vaccine (HZV), Recombinant, Subunit, Adjuvanted U-Flu Given 07/08/2018 Influenza,Unspecified 52563 Given 02/24/2018 Shingrix 58699 Given 10/21/2016 Pneumovax 23 [id number] U-PneuC Given 10/14/2015 Prevnar 13 [id number] Given 08/08/2015 Fluvirin Virus Vaccine [id number] 01 04594 Given 03/31/2008 Zoster Vaccine 98759 Given 08/18/2007 Influenza Virus Vaccine 13586 Given 10/09/2006 Influenza Virus Vaccine 79283 Given 09/26/2006 Pneumovax 23 53758 Given 08/21/2005 Influenza Virus Vaccine 05675 Given 08/27/2004 Influenza Virus Vaccine 26569 Given 08/16/2003 Influenza Virus Vaccine 50002 Given 10/01/2002 Influenza Virus Vaccine 52668 Given 05/25/1998 Tetanus Toxoid 52275 Refused 08/19/2018 Influenza Virus Vaccine, Quadrivalent (Cciiv4), [...] H/L Range Note Ua Dipstick Only 07/09/2021 [facility] Environmental Aide: Dr Arron Deras [place], [place] [id number] [phone] Urine Color YELLOW Yellow Urine Appearance CLEAR Clear Urine PH 6.5 units 5.0 - 9.0 Urine Specific [place] 1.015 1.005 - 1.030 Urine Leukocytes NEGATIVE Negative Urine Blood NEGATIVE Negative Urine Protein NEGATIVE Negative -Trace Urine Glucose NEGATIVE mg/dL Negative Urine Nitrite NEGATIVE Negative Urine Ketone NEGATIVE mg/dL Negative Urine Bilirubin NEGATIVE Negative Urine Urobilinogen 0.2 mg/dL 0.2 - 1.0 Manual Differential 07/06/2021 [facility] [address] [place], [place] [id number] [phone] Neutrophils 88 % High 28-66 Lymphocytes 5 % Low 16-44 Monocytes 7 % High 0-5 Platelet Estimate NORMAL Normal Normal Complete Blood Count 07/06/2021 [facility] Environmental Aide: [place] [address] [phone] WBC 18.1 x10*3/UL High 4.1 - 10.9 [...] 2.0 - 7.8 Comprehensive Chem Profile 07/06/2021 [facility] Environmental Aide: [place] [address] [phone] Glucose 107 mg/dL High 74 - 99 [...] 3 Influenza A/B RSV Covid Amp 06/20/[address] [address] [phone] Influenza A Amplification NEGATIVE Normal Negati ve 4 Influenza B Amplification NEGATIVE Normal Negative 5 RSV Amplification NEGATIVE Normal Negative 6 Sars Covid-19 Amplification NEGATIVE Normal Negative 7 Laboratory test finding 06/20/[address] [address] [phone] NT-Pro BNP 698 pg/mL High <450 Thyroid Stimulating Hormone 0.820 uIU/ML Normal 0.358-3.740 Liver Profile 06/20/[address] [address] [phone] Ast/Sgot 115 U/L High 7-37 Alt/SGPT 244 U/L High 12-78 Alkaline Phosphatase 143 U/L High 45-117 Bilirubin,Total 0.3 mg/dL Normal 0.2-1.0 Bilirubin,Direct 0.1 mg/dL Normal 0.0-0.2 Total Protein 6.5 GM/DL Normal 6.4-8.2 Albumin 2.4 GM/DL Low 3.2-5.2 Albumin/Globulin Ratio 0.6 Normal Laboratory test finding 06/20/[address] [address] [phone] Lactic Acid Sepsis Protocol 1.1 mmol/L Normal 0.4- 2.0 8 Arterial Blood Gas 06/20/[address] [address] [phone] ABG pH (Arterial) 7.471 units High 7.350-7.450 ABG Partial Pressure Co2 38.5 mmHg Normal 35.0-45.0 ABG Partial Pressure O2 107.9 mmHg High 75.0-100.0 ABG Total Co2 28.6 mEq/L Normal 23.0-31.0 ABG Hco3 27.5 mEq/L High 22.0-26.0 ABG Base Excess 3.6 High -2.0-2.0 ABG Standard Hco3 27.7 mEq/L High 22.0-26.0 ABG O2 Saturation 98.3 % Normal 95.0-99.0 Istat Chem8+ Panel 06/20/2021 [facility] [address] [place] [address] [phone] iSTAT HCT 33.0 % Low 38.0-51.0 iSTAT Glucose 141 mg/dL High 70-105 iSTAT Sodium 136 mEq/L Normal 136-145 iSTAT Potassium 4.3 mEq/L Normal 3.5-5.1 iSTAT CA++ 4.7 mg/dL Normal 4.5-5.3 iSTAT Chloride 99 mEq/L Normal 98-109 iSTAT Co2 24.0 MM/L Normal 23.0-27.0 iSTAT BUN 28 mg/dL High 8-26 iSTAT Creatinine 0.4 mg/dL Low 0.6-1.3 CBC With Differential 06/20/2021 [facility] [address] [place] [address] [phone] White Blood Count 8.8 10 Normal 4.0-10.0 [...] 36.0-66.0 Lymph % 6.3 % Low 24.0-44.0 [place] % 5.3 % Normal 2.0-8.0 Eos % 0.0 % Normal 0.0-3.0 Baso % 0.3 % Normal 0.0-1.0 Immature Granulocyte % 0.8 % Normal 0-3.0 Nucleated Red Blood Cell % 0.0 % Normal 0-0 Neutrophils # 7.7 10 Normal 1.5-8.5 Lymph # 0.6 10 Low 1.5-5.0 [place] # 0.5 10 Normal 0.0-0.8 Eos # 0.0 10 Normal 0.0-0.5 Baso # 0.0 10 Normal 0.0-0.2 Complete Blood Count 06/19/2021 [facility] Environmental Aide: [place] [address] [phone] WBC 10.3 x10*3/UL 4.1 - 10.9 RBC [...] 2.0 - 7.8 Comprehensive Chem Profile 06/19/2021 [facility] Environmental Aide: [place] [address] [phone] Glucose 149 mg/dL High 74 - 99 [...] mL/min >60 11 Complete Blood Count 05/09/2021 [facility] Environmental Aide: [place] [address] [phone] WBC 16.6 x10*3/UL High 4.1 - 10.9 [...] 2.0 - 7.8 Basic Metabolic Panel 05/09/2021 [facility] Environmental Aide: [place] [address] [phone] Glucose 87 mg/dL 74 - 99 13 [...] mL/min >60 15 CBC With Differential 04/28/[address] [id number] [phone] White Blood Count 21.6 10 High 4.0-10.0 [...] % 0.0 % Normal 0-0 Differential 04/28/[address] [address] [phone] Neutrophils 62 % Normal 28-66 Bands 30 % High < 11 Lymphocytes 1 % Low 16-44 Monocytes 5 % Normal 0-5 Eosinophils 2 % Normal 0-3 Anisocytosis 1+ Normal Microcytosis 2+ Normal Laboratory test finding 04/28/[address] [address] [phone] Platelet Estimate NORMAL Normal Normal Respiratory Panel 04/28/2021 [facility] [address] [address] [phone] Respiratory Panel This respiratory <SEE NOTE> 16 Venous Blood Gas 04/28/2021 [facility] [address] [place] [address] [phone] Venous PH 7.424 units Normal 7.330-7.430 Venous Partial Pressure Co2 33.9 mmHg Low 38.0-50.0 Venous Partial Pressure O2 65.4 mmHg High 30.0-50.0 Venous Total Co2 22.7 mEq/L Low 24.0-28.0 Venous Hco3 21.7 mEq/L Low 23.0-27.0 Venous Base Excess -2.0 Normal -2.0-2.0 Venous Standard Hco3 22.7 mEq/L Normal Venous O2 Saturation 92.9 % High 60.0-80.0 Laboratory test finding 04/28/[address] [address] [phone] Lactic Acid Sepsis Protocol 1.6 mmol/L Normal 0.4- 2.0 17 Cardiac Marker Panel 04/28/2021 [facility] [address] [place] [address] [phone] CPK Creatine Phosphokinase 143 U/L Normal 39-30 8 CK-MB Value Mass 3.2 NG/ML Normal <3.6 MB/CK Relative Index 2.24 Normal < Or =4 18 Troponin I 0.07 NG/ML Normal < 0.10 19 Liver Profile 04/28/2021 [facility] n[facility] [address] [place] [phone] Ast/Sgot 33 U/L Normal 7-37 Alt/SGPT 56 U/L Normal 12-78 Alkaline Phosphatase 78 U/L Normal 45-117 Bilirubin,Total 0.5 mg/dL Normal 0.2-1.0 Bilirubin,Direct 0.2 mg/dL Normal 0.0-0.2 Total Protein 6.2 GM/DL Low 6.4-8.2 Albumin 2.2 GM/DL Low 3.2-5.2 Albumin/Globulin Ratio 0.6 Normal Basic Metabolic Profile 04/28/[address] [address] [phone] Glucose, Fasting 125 mg/dL High 70-100 Blood [...] mg/dL Low 8.8-10.2 Laboratory test finding 04/28/2021 [facility] [address] [place] [address] [phone] NT-Pro BNP 2940 pg/mL High <450 Thyroxine (T4) 6.4 g/dL Normal 4.5-12.0 Thyroid Stimulating Hormone 1.020 uIU/ML Normal 0.358-3.740 Coronavirus 2019 Nasopharygeal 04/05/[address] [address] [phone] Coronavirus 2019 Nasopharygeal NOTE: The COVID- <SEE N OTE> 21 1 NOTE: RESULT VERIFIED .MANUAL DIFFERENTIAL SENT TO [facility] FOR MAREN IFICATION. 2 100-125 mg/dL PRE-DIABET ES/FASTING >126 mg/dL DIABETES/FASTING 3 CHRONIC KIDNEY DISEASE STAGI NG PER NKF STAGE I & II GFR >= 60 NORMAL TO MILDLY DECREASED STAGE III GFR 30-59 MODERATELY DECREASED STAGE IV GFR 15-29 SEVERELY DECREASED STAGE V GFR <15 VERY LITTLE GFR LEFT ESRD GFR <15 ON PATTERN STAMPER 4 Negative results do not prec lude [...] pathogens. DISCLAIMER: Testing was performed using the [facility] SARS-CoV-2 test. This test was developed and its performance characteristics determined by [facility]. This test has not been FDA cleared [...] LITTLE GFR LEFT ESRD GFR <15 ON PATTERN STAMPER 12 NOTE: RESULT VERIFIED. 13 100-125 mg/dL PRE-DIABET ES/FASTING >126 mg/dL DIABETES/FASTING 14 NOTE: RESULT VERIFIED. 15 CHRONIC KIDNEY DISEASE STAGI NG PER NKF STAGE I & II GFR >= 60 NORMAL TO MILDLY DECREASED STAGE III GFR 30-59 MODERATELY DECREASED STAGE IV GFR 15-29 SEVERELY DECREASED STAGE V GFR <15 VERY LITTLE GFR LEFT ESRD GFR <15 ON PATTERN STAMPER 16 This respiratory PCR panel d etects [...] 19 Troponin I Reference Interva l for [employer] LOCI: 99th Percentile= 0.00-0.045 ng/ml Risk Stratification: [...] Little GFR Left ESRD GFR <15 on PATTERN STAMPER 21 NOTE: The COVID-19 assay is under Emergency Use Authorization (EUA) by the U.S. Food and Drug Administration. [facility] is designated as a high complexity laboratory by the Clinical Laboratory Improvement Amendments of 1988(CLIA) and is qualified to perform this test. ASSAY INFORMATION: Real Time RT-PCR or TMA. Both RT-PCR and TMA are molecular testing modalities and are recommended by the CDC for passenger travel. Not Detected Procedures Date Code Description Status 06/19/2021 05043 Office/Outpatient Established Mo d MDM 30-39 Min Completed 05/23/2021 35440 Office/Outpatient Established Mo d MDM 30-39 Min Completed 05/09/2021 55117 [facility] SRV W/I 7 Days Of DC, C omm W/I 2 Dys Med Rec Completed 03/22/2016 [id number] Colonoscopy Completed 02/03/2015 [id number] Colonoscopy Completed 01/06/2014 [id number] Colonoscopy Completed 05/24/2011 [id number] Colonoscopy Completed 04/21/2007 [id number] Colonoscopy Completed Medical Devices Description No Information Available Encounters Type Date Location Provider Dx Diagnosis Office Visit 06/19/2021 1:30p [facility] InternChase kellogg MD J44.9 Chronic obstructive pulmonary disease, u nspecified J47.9 Bronchiectasis, uncomplicate d J96.11 Chronic respiratory failure with hypoxia Z79.52 group home (current) use of s ystemic steroids G47.33 Obstructive sleep apnea (maryann lt) (pediatric) J18.1 Lobar pneumonia, unspecified organism I95.1 Orthostatic hypotension D64.9 Anemia, unspecified Office Visit 05/23/2021 10:40a [facility] Intern[facility]ase kellogg MD J44.9 Chronic obstructive pulmonary disease, u nspecified J96.11 Chronic respiratory failure with hypoxia D64.9 Anemia, unspecified G47.33 Obstructive sleep apnea (maryann lt) (pediatric) 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 Lito marcie Townsend JR, PA J18.1 Lobar pneumonia, unspecified organism I10 Essential (primary) hyperten zac J44.9 Chronic obstructive pulmonar y disease, unspecified G47.33 Obstructive sleep apnea (maryann lt) (pediatric) D64.9 Anemia, unspecified J96.11 Chronic respiratory failure with hypoxia M48.061 Spinal stenosis, lumbar rebecca on without neurogenic douglas Z79.52 group home (current) use of s ystemic steroids Assessments [...] Deras, DO 07/06/2021 B37.9 Candidiasis, unspecified Zay marixa Deras, DO 07/06/2021 I95.1 Orthostatic hypotension Ena Deras, DO 06/19/2021 J44.9 Chronic obstructive pulmonary di sease, unspecified Arron Deras MD 06/19/2021 J47.9 Bronchiectasis, uncomplicated Co nghia Deras MD 06/19/2021 J96.11 Chronic respiratory failure with hypoxia Arron Deras MD 06/19/2021 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 * 07/18/2021 1:00 pm - Lab Schedule at [facility] * 08/23/2021 11:00 am - Arron Deras MD at [facility] 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
--- OUTSIDE RECORDS SUMMARY | 2021-09-10 11:50 | CCD | Continuity of Care Document ---
Author Author Lab Kath, Shukri Newton Organization Unknown Address [address] [address] Phone Unavailable Care Team Providers Care Supervisor Pipe Finishing Name Role Phone Bentley Thacker MD AUTM [phone] Arron Deras JR, MD AUTM Unavailable [facility] AUTM [phone] Trino Betancourt MD AUTM [phone] Raciel Gill MD AUTM [phone] Morales Jade MD AUTM [phone] Bhavin Stanton MD AUTM [phone] Guero Norman MD AUTM [phone] [facility] AUTM [phone] [facility] AUTM [phone] Problems Active Problems Provider Date Benign essential [...] daily 60tabs Arron Deras MD 12/26/2020 Nystatin [id number]/ML Suspension swish and spit 5ml as needed [...] Given 07/20/2020 Influenza,Unspecified U-Flu Given 07/19/2019 Influenza,Unspecified 37514 Given 07/17/2018 Shingrix Zoster Vaccine (HZV), Recombinant, Subunit, Adjuvanted U-Flu Given 07/08/2018 Influenza,Unspecified 12790 Given 02/24/2018 Shingrix 50869 Given 10/21/2016 Pneumovax 23 [id number] U-PneuC Given 10/14/2015 Prevnar 13 [id number] Given 08/08/2015 Fluvirin Virus Vaccine 34313 01 49348 Given 03/31/2008 Zoster Vaccine 65892 Given 08/18/2007 Influenza Virus Vaccine 56504 Given 10/09/2006 Influenza Virus Vaccine 78985 Given 09/26/2006 Pneumovax 23 [id number] Given 08/21/2005 Influenza Virus Vaccine 17340 Given 08/27/2004 Influenza Virus Vaccine 17071 Given 08/16/2003 Influenza Virus Vaccine 66347 Given 10/01/2002 Influenza Virus Vaccine 82601 Given 05/25/1998 Tetanus Toxoid 69526 Refused 08/19/2018 Influenza Virus Vaccine, Quadrivalent (Cciiv4), [...] H/L Range Note Ua Dipstick Only 07/09/2021 [facility] Supervisor Case Loading: Dr Arron Deras [place], [place] [id number] [phone] Urine Color YELLOW Yellow Urine Appearance CLEAR Clear Urine PH 6.5 units 5.0 - 9.0 Urine Specific Harwood 1.015 1.005 - 1.030 Urine Leukocytes NEGATIVE Negative Urine Blood NEGATIVE Negative Urine Protein NEGATIVE Negative -Trace Urine Glucose NEGATIVE mg/dL Negative Urine Nitrite NEGATIVE Negative Urine Ketone NEGATIVE mg/dL Negative Urine Bilirubin NEGATIVE Negative Urine Urobilinogen 0.2 mg/dL 0.2 - 1.0 Manual Differential 07/06/2021 [facility] nter [address] [place], [place] [id number] [phone] Neutrophils 88 % High 28-66 Lymphocytes 5 % Low 16-44 Monocytes 7 % High 0-5 Platelet Estimate NORMAL Normal Normal Complete Blood Count 07/06/2021 [facility] Supervisor Case Loading: [place] [address] [phone] WBC 18.1 x10*3/UL High 4.1 - 10.9 [...] 2.0 - 7.8 Comprehensive Chem Profile 07/06/2021 [facility] Supervisor Case Loading: [place] [address] [phone] Glucose 107 mg/dL High 74 - 99 [...] 3 Influenza A/B RSV Covid Amp 06/20/[address] [address] [phone] Influenza A Amplification NEGATIVE Normal Negati ve 4 Influenza B Amplification NEGATIVE Normal Negative 5 RSV Amplification NEGATIVE Normal Negative 6 Sars Covid-19 Amplification NEGATIVE Normal Negative 7 Laboratory test finding 06/20/[address] [address] [phone] NT-Pro BNP 698 pg/mL High <450 Thyroid Stimulating Hormone 0.820 uIU/ML Normal 0.358-3.740 Liver Profile 06/20/[address] [address] [phone] Ast/Sgot 115 U/L High 7-37 Alt/SGPT 244 U/L High 12-78 Alkaline Phosphatase 143 U/L High 45-117 Bilirubin,Total 0.3 mg/dL Normal 0.2-1.0 Bilirubin,Direct 0.1 mg/dL Normal 0.0-0.2 Total Protein 6.5 GM/DL Normal 6.4-8.2 Albumin 2.4 GM/DL Low 3.2-5.2 Albumin/Globulin Ratio 0.6 Normal Laboratory test finding 06/20/[address] [address] [phone] Lactic Acid Sepsis Protocol 1.1 mmol/L Normal 0.4- 2.0 8 Arterial Blood Gas 06/20/[address] [address] [phone] ABG pH (Arterial) 7.471 units High 7.350-7.450 ABG Partial Pressure Co2 38.5 mmHg Normal 35.0-45.0 ABG Partial Pressure O2 107.9 mmHg High 75.0-100.0 ABG Total Co2 28.6 mEq/L Normal 23.0-31.0 ABG Hco3 27.5 mEq/L High 22.0-26.0 ABG Base Excess 3.6 High -2.0-2.0 ABG Standard Hco3 27.7 mEq/L High 22.0-26.0 ABG O2 Saturation 98.3 % Normal 95.0-99.0 Istat Chem8+ Panel 06/20/2021 [facility] nter [address] [place] [address] [phone] iSTAT HCT 33.0 % Low 38.0-51.0 iSTAT Glucose 141 mg/dL High 70-105 iSTAT Sodium 136 mEq/L Normal 136-145 iSTAT Potassium 4.3 mEq/L Normal 3.5-5.1 iSTAT CA++ 4.7 mg/dL Normal 4.5-5.3 iSTAT Chloride 99 mEq/L Normal 98-109 iSTAT Co2 24.0 MM/L Normal 23.0-27.0 iSTAT BUN 28 mg/dL High 8-26 iSTAT Creatinine 0.4 mg/dL Low 0.6-1.3 CBC With Differential 06/20/2021 [facility] [address] [place] [address] [phone] White Blood Count 8.8 10 Normal 4.0-10.0 [...] 36.0-66.0 Lymph % 6.3 % Low 24.0-44.0 Beaver % 5.3 % Normal 2.0-8.0 Eos % 0.0 % Normal 0.0-3.0 Baso % 0.3 % Normal 0.0-1.0 Immature Granulocyte % 0.8 % Normal 0-3.0 Nucleated Red Blood Cell % 0.0 % Normal 0-0 Neutrophils # 7.7 10 Normal 1.5-8.5 Lymph # 0.6 10 Low 1.5-5.0 Beaver # 0.5 10 Normal 0.0-0.8 Eos # 0.0 10 Normal 0.0-0.5 Baso # 0.0 10 Normal 0.0-0.2 Complete Blood Count 06/19/2021 [facility] Supervisor Case Loading: [place] [address] [phone] WBC 10.3 x10*3/UL 4.1 - 10.9 RBC [...] 2.0 - 7.8 Comprehensive Chem Profile 06/19/2021 [facility] Supervisor Case Loading: [place] [address] [phone] Glucose 149 mg/dL High 74 - 99 [...] mL/min >60 11 Complete Blood Count 05/09/2021 [facility] Supervisor Case Loading: [place] [address] [phone] WBC 16.6 x10*3/UL High 4.1 - 10.9 [...] 2.0 - 7.8 Basic Metabolic Panel 05/09/2021 [facility] Supervisor Case Loading: [place] [address] [phone] Glucose 87 mg/dL 74 - 99 13 [...] mL/min >60 15 CBC With Differential 04/28/[address] [id number] [phone] White Blood Count 21.6 10 High 4.0-10.0 [...] % 0.0 % Normal 0-0 Differential 04/28/[address] [address] [phone] Neutrophils 62 % Normal 28-66 Bands 30 % High < 11 Lymphocytes 1 % Low 16-44 Monocytes 5 % Normal 0-5 Eosinophils 2 % Normal 0-3 Anisocytosis 1+ Normal Microcytosis 2+ Normal Laboratory test finding 04/28/[address] [address] [phone] Platelet Estimate NORMAL Normal Normal Respiratory Panel 04/28/2021 [facility] [address] [address] [phone] Respiratory Panel This respiratory <SEE NOTE> 16 Venous Blood Gas 04/28/2021 [facility] nt [address] [place] [address] [phone] Venous PH 7.424 units Normal 7.330-7.430 Venous Partial Pressure Co2 33.9 mmHg Low 38.0-50.0 Venous Partial Pressure O2 65.4 mmHg High 30.0-50.0 Venous Total Co2 22.7 mEq/L Low 24.0-28.0 Venous Hco3 21.7 mEq/L Low 23.0-27.0 Venous Base Excess -2.0 Normal -2.0-2.0 Venous Standard Hco3 22.7 mEq/L Normal Venous O2 Saturation 92.9 % High 60.0-80.0 Laboratory test finding 04/28/[address] [address] [phone] Lactic Acid Sepsis Protocol 1.6 mmol/L Normal 0.4- 2.0 17 Cardiac Marker Panel 04/28/2021 [facility] enter [address] [place] [address] [phone] CPK Creatine Phosphokinase 143 U/L Normal 39-30 8 CK-MB Value Mass 3.2 NG/ML Normal <3.6 MB/CK Relative Index 2.24 Normal < Or =4 18 Troponin I 0.07 NG/ML Normal < 0.10 19 Liver Profile 04/28/2021 [facility] nter [address] [place] [address] [phone] Ast/Sgot 33 U/L Normal 7-37 Alt/SGPT 56 U/L Normal 12-78 Alkaline Phosphatase 78 U/L Normal 45-117 Bilirubin,Total 0.5 mg/dL Normal 0.2-1.0 Bilirubin,Direct 0.2 mg/dL Normal 0.0-0.2 Total Protein 6.2 GM/DL Low 6.4-8.2 Albumin 2.2 GM/DL Low 3.2-5.2 Albumin/Globulin Ratio 0.6 Normal Basic Metabolic Profile 04/28/[address] [address] [phone] Glucose, Fasting 125 mg/dL High 70-100 Blood [...] mg/dL Low 8.8-10.2 Laboratory test finding 04/28/2021 [facility] [address] [place] [address] [phone] NT-Pro BNP 2940 pg/mL High <450 Thyroxine (T4) 6.4 g/dL Normal 4.5-12.0 Thyroid Stimulating Hormone 1.020 uIU/ML Normal 0.358-3.740 Coronavirus 2019 Nasopharygeal 04/05/[address] [id number] [phone] Coronavirus 2019 Nasopharygeal NOTE: The COVID- <SEE N OTE> 21 1 NOTE: RESULT VERIFIED .MANUAL DIFFERENTIAL SENT TO [facility] FOR MAREN IFICATION. 2 100-125 mg/dL PRE-DIABET ES/FASTING >126 mg/dL DIABETES/FASTING 3 CHRONIC KIDNEY DISEASE STAGI NG PER NKF STAGE I & II GFR >= 60 NORMAL TO MILDLY DECREASED STAGE III GFR 30-59 MODERATELY DECREASED STAGE IV GFR 15-29 SEVERELY DECREASED STAGE V GFR <15 VERY LITTLE GFR LEFT ESRD GFR <15 ON RESIZER OPERATOR 4 Negative results do not prec lude [...] pathogens. DISCLAIMER: Testing was performed using the [facility] SARS-CoV-2 test. This test was developed and its performance characteristics determined by [facility]. This test has not been FDA cleared [...] LITTLE GFR LEFT ESRD GFR <15 ON RESIZER OPERATOR 12 NOTE: RESULT VERIFIED. 13 100-125 mg/dL PRE-DIABET ES/FASTING >126 mg/dL DIABETES/FASTING 14 NOTE: RESULT VERIFIED. 15 CHRONIC KIDNEY DISEASE STAGI NG PER NKF STAGE I & II GFR >= 60 NORMAL TO MILDLY DECREASED STAGE III GFR 30-59 MODERATELY DECREASED STAGE IV GFR 15-29 SEVERELY DECREASED STAGE V GFR <15 VERY LITTLE GFR LEFT ESRD GFR <15 ON RESIZER OPERATOR 16 This respiratory PCR panel d etects [...] 19 Troponin I Reference Interva l for [facility] LOCI: 99th Percentile= 0.00-0.045 ng/ml Risk Stratification: [...] Little GFR Left ESRD GFR <15 on RESIZER OPERATOR 21 NOTE: The COVID-19 assay is under Emergency Use Authorization (EUA) by the U.S. Food and Drug Administration. [facility] is designated as a high complexity laboratory by the Clinical Laboratory Improvement Amendments of 1988(CLIA) and is qualified to perform this test. ASSAY INFORMATION: Real Time RT-PCR or TMA. Both RT-PCR and TMA are molecular testing modalities and are recommended by the CDC for passenger travel. Not Detected Procedures Date Code Description Status 06/19/2021 88008 Office/Outpatient Established Mo d MDM 30-39 Min Completed 05/23/2021 94164 Office/Outpatient Established Mo d MDM 30-39 Min Completed 05/09/2021 76399 [facility] SRV W/I 7 Days Of DC, C omm W/I 2 Dys Med Rec Completed 03/22/2016 [id number] Colonoscopy Completed 02/03/2015 [id number] Colonoscopy Completed 01/06/2014 [id number] Colonoscopy Completed 05/24/2011 [id number] Colonoscopy Completed 04/21/2007 [id number] Colonoscopy Completed Medical Devices Description No Information Available Encounters Type Date Location Provider Dx Diagnosis Office Visit 06/19/2021 1:30p [facility] Intern[facility] kellogg MD J44.9 Chronic obstructive pulmonary disease, u nspecified J47.9 Bronchiectasis, uncomplicate d J96.11 Chronic respiratory failure with hypoxia Z79.52 halfway (current) use of s ystemic steroids G47.33 Obstructive sleep apnea (maryann lt) (pediatric) J18.1 Lobar pneumonia, unspecified organism I95.1 Orthostatic hypotension D64.9 Anemia, unspecified Office Visit 05/23/2021 10:40a [facility] Intern[facility] kellogg MD J44.9 Chronic obstructive pulmonary disease, u nspecified J96.11 Chronic respiratory failure with hypoxia D64.9 Anemia, unspecified G47.33 Obstructive sleep apnea (maryann lt) (pediatric) Z79.52 director long term care (current) use of s ystemic steroids E78.00 Pure hypercholesterolemia, u nspecified I95.1 Orthostatic hypotension Office Visit 05/09/2021 9:40a [facility] Lito marcie Townsend JR, PA J18.1 Lobar pneumonia, unspecified organism I10 Essential (primary) hyperten zac J44.9 Chronic obstructive pulmonar y disease, unspecified G47.33 Obstructive sleep apnea (maryann lt) (pediatric) D64.9 Anemia, unspecified J96.11 Chronic respiratory failure with hypoxia M48.061 Spinal stenosis, lumbar rebecca on without neurogenic douglas Z79.52 halfway (current) use of s ystemic steroids Assessments [...] with hypoxia Arron Deras MD 06/19/2021 Z79.52 director long term care (current) use of syste clint steroids Arron [...] (adult) (pediatric) Arron Deras MD 05/23/2021 Z79.52 director long term care (current) use of syste clint steroids Arron [...] neurogenic claudication HINA Penn JR 05/09/2021 Z79.52 halfway (current) use of syste clint steroids HINA Penn JR Plan of Treatment Future Appointment(s):* 08/22/2021 9:10 am - Lab Schedule at [facility] * 08/23/2021 11:00 am - Arron Deras MD at [facility] 06/19/2021 - Arron Deras MD* J44.9 Chronic obstructive pulmonary disease, unspecified * J47.9 Bronchiectasis, uncomplicated * J96.11 Chronic respiratory failure with hypoxia * Z79.52 director long term care (current) use of systemic steroids * G47.33 [...]
--- OUTSIDE RECORDS SUMMARY | 2021-09-10 11:50 | CCD | Continuity of Care Document ---
Author Author Shukri FAITH M.D. Organization Unknown Address [address] [place] [address] Phone [phone] Care Team Providers Care Fly Maker Name Role Phone Arron Deras MD @ [facility] Int AUTM Trino Betancourt M.D. AUTM [...] chronic obstructive airways disease To Nancy paredes A.N.Sangita Onset: 10/19/2012 Extrinsic asthma with asthma attack [...] ppd x 33+ yrs Smoking Status Reviewed: 07/03/21 Patient is a former smoker 2 ppd x 33+ yrs Recent Travel There has not been recent travel abroad Not since 2007 Allergies, Adverse Reactions, Alerts Active Allergies Criticality Reaction | Severity Comments Date NKDA Unable to assess criticality 03/12/2021 Inactive Allergies NKDA Unable to assess criticality 03/05/2010 Amoxicillin Unable to assess criticality severe diarrhea 09/02/2012 Medications Active Medications SIG Qnty Indications Ordering Provide r Date Prednisone 5mg Tablets 15 mg alternate with 10 mg daily 30tabs Bentley Thacker MD 07/03/2021 Miralax 17GM/Scoop Powder take 1 dose daily x 7 days prior to colonoscopy as directed. Then use for bowel prep per instructions. 510gm R19.5 Shukri Hutchinson MD 03/12/2021 Magnesium Citrate 1.745GM/30ML Jodi ution take one 10 ounce bottle prior to procedure for additional bowel prep per instructions. 296ml D50.9 Shukri Hutchinson MD 03/12/2021 Oxygen Device 2 l cont/QHS bleed in (marras) Bentley Thacker MD 12/07/2020 Prednisone 20mg Tablets Alternate with 10 mg daily 14tabs Bentley Thacker MD 08/29/2020 Budesonide 0.5mg/2ML Suspension Use 1 Vial Via Nebulizer Twice A Day 1440units Bentley Thacker MD Incruse Ellipta 62.5mcg/Inh Aeroso l Use 1 Inhalation Daily 2700units Bentley Thacker MD 06/09/2019 CPAP 14cm W/2L 02 Bleed- marras Bentley Thacker MD 02/22/2019 Combivent Respimat 20-100mcg/Act A erosol Use 1 Inhalation Four Times A Day as Needed 48units Lawr tasia Thacker MD 07/24/2018 Midodrine HCL 5mg Tablets Take 2 Tablets By Mouth Three Times A Day 8Am 12PM And 4PM U nknown Iron (Ferrous Sulfate) 325(65Fe) mg Tablets 1tab po qd Unknown Preservision Areds 2 Areds 2 Capsu les 1cap po qd Unknown Amlodipine Besylate 5mg Tablets 1tab po qd Unknown Oxycodone-Acetaminophen 5-325mg Ta blets 1 by mouth every 4 hours as needed Unknown Zinc 50MG 1tab po qd Unknown Acetaminophen 325mg Tablets 1tab po q6h prn for pain Unknown Nystatin 418610Yfln/ML Suspension Use 5ML By Mouth Swish And Spit Two Times A Day as Needed For Thrush Unknown Solifenacin Succinate 10mg Tablets 1 tab by mouth daily Unknown Mucinex 600mg Tablets ER 12HR 2 by mouth twice a day Unknown Xopenex 1.25mg/3ML Nebulizer 1 vial inhalation four times a day as needed Unknown Lotemax 0.5% Suspension 1 drop right eye four times a day Unknown Azithromycin 250mg Tablets Q -- 12tabethany Thacker MD Symbicort 160-4.5mcg/Act Aerosol Use 2 Inhalations Twice A Day 30.6unvaibhav Thacker MD Fluticasone Propionate 50mcg/Act Suspension Use 2 Sprays In Each Nostril Every Night AT Bedtime 48unvaibhav Thacker MD History Medications Cipro 500mg Tablets 1 tab by mouth [...] CPT Code Status Date Vaccine Lot # [id number] Given 07/29/2016 Influenza Virus Split 3 Yrs And Above For Intramuscular Use 66686 Given 08/08/2015 Influenza Virus Split 3 Yrs And Above For Intramuscular Use 75989 Given 07/13/2015 Pneumococcal PPSV23 53370 Given 12/27/2014 Prevnar 13 93935 Given 08/18/2014 Influenza Virus Split 3 Yrs And Above For Intramuscular Use Q2036 Given 08/04/2013 Influenza Vaccine 3 Years Of Age Or Older (Flulaval) Q2036 Given 07/14/2012 Influenza Vaccine 3 Years Of Age Or Older (Flulaval) 81293 Given 07/14/2012 Pneumococcal PPSV23 Q2036 Given 07/13/2012 Influenza Vaccine 3 Years Of Age Or Older (Flulaval) 49350 Given 08/07/2011 Influenza Virus Split 3 Yrs And Above For Intramuscular Use 93787 Given 09/26/2010 Pneumococcal PPSV23 94209 Given 07/24/2010 Influenza Virus Split 3 Yrs And Above For Intramuscular Use 75016 Given 09/29/2009 Influenza Vaccine 31123 Given 09/19/2008 Influenza Vaccine 18285 Given 08/25/2003 Pneumococcal PPSV23 92310 Given Unknown Pneumococcal PPSV23 97859 Given Unknown Prevnar 13 Vital Signs Date Vital Result Comment 07/03/2021 1:40pm BP Systolic 86 mmHg BP Diastolic 58 mmHg Heart Rate 74 /min O2 % BldC Oximetry 942 % Height 72 inches 6'0" Weight 127.00 lb BMI (Body Mass Index) 17.2 kg/m2 Emerson Body Weight 178 lb Weight 57.607 kg BSA (Body Surface Area) 1.76 m2 05/21/2021 2:56pm BP Systolic 100 mmHg BP Diastolic 60 mmHg Heart Rate 86 /min O2 % BldC Oximetry 932 % Height 72 inches 6'0" Emerson Body Weight 178 lb Results Test Acquired Date Facility Test Result H/L Range Note Complete Blood Count 03/13/2021 [facility] Main Lab [address] [place], [place] [id number] [phone] White Blood Count 13.3 10 High 4.0-10.0 [...] 0-0 1 Total Iron Binding Capacit 03/13/2021 [facility] Main Lab [address] [place] [address] [phone] Iron (Fe) 54 g/dL Low 65-175 Total Iron Binding Capacity 285 g/dL Normal 250-450 Percent Saturation 18.9 % Low 19.7-50.0 2 Comprehensive Metabolic Profil 03/13/2021 [facility] Main Lab [address] [place] [address] [phone] Glucose, Fasting 96 mg/dL Normal 70-100 Blood [...] (Thr March 15) 09:17 A M KIEL HORNEBOMIHIR Anemia has improved. WBC elevated. Informed patient and letter sent to PCP. 2 03/15/21 (March 15) 09:17 A M KIEL CHARLEBOIS Improvement noted. 3 Units are mL/min/1.73 m2 Chronic Kidney Disease Staging per NKF: Stage I & II GFR >=60 Normal to Mildly Decreased Stage III GFR 30-59 Moderately Decreased Stage IV GFR 15-29 Severely Decreased Stage V GFR <15 Very Little GFR Left ESRD GFR <15 on MANAGER ADMINISTRATIVE 4 03/15/21 (March 15) 09:17 A M KIEL HORNEBOIS No significant abnormalities. Procedures Date Code Description Status 07/03/2021 47915 Office/Outpatient Established Mo d MDM 30-39 Min Completed 06/21/2021 52991 Hospital Subsequent Care Level 2 Completed 05/21/2021 46689 Office/Outpatient Established Mo d MDM 30-39 Min Completed 05/04/2021 70395 Hospital Subsequent Care Level 2 Completed 05/03/2021 58758 Hospital Subsequent Care Level 2 Completed 05/02/2021 39146 Hospital Subsequent Care Level 2 Completed 05/01/2021 24094 Hospital Subsequent Care Level 2 Completed 04/29/2021 21718 Hospital Initial Care Level 1 Co mpleted 03/12/2021 54512 Office/Outpatient New Low MDM 30 -44 Minutes Completed 03/08/2021 69070 Office/Outpatient Established Mo d MDM 30-39 Min Completed Medical Devices Description No Information Available Encounters Type Date Location Provider Dx Diagnosis Office Visit 07/03/2021 1:30p [facility] Sheng Thacker MD R91.8 Other nonspecific abnormal finding of [facility] J96.11 Chronic respiratory failure with hypoxia 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 G47.33 Obstructive sleep apnea (maryann lt) (pediatric) J44.9 Chronic obstructive pulmonar y disease, unspecified Z79.52 retirement (current) use of s ystemic steroids Office Visit 06/21/2021 1:23a [facility] Sharda Green M.D. 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 J90 Pleural effusion, not elsewhere classifi ed J44.9 Chronic obstructive pulmonar y disease, unspecified E87.6 Hypokalemia Office Visit 05/03/2021 1:23a [facility] Evelia Gordon DO J15.1 Pneumonia due to Pseudomonas J90 Pleural effusion, not elsewh ere classified J44.9 Chronic obstructive pulmonar y disease, unspecified Office Visit 05/02/2021 1:23a [facility] D avid P. Rechlin, DO J15.1 Pneumonia due to Pseudomonas J90 Pleural effusion, not elsewh ere classified J44.9 Chronic obstructive pulmonar y disease, unspecified Office Visit 05/01/2021 1:23a [facility] D avid P. Rechlin, DO J15.1 Pneumonia due to Pseudomonas J44.9 Chronic obstructive pulmonar y disease, unspecified J90 Pleural effusion, not elsewh ere classified Office Visit 04/29/2021 1:23a [facility] Sharda Green M.D. J15.1 Pneumonia due to Pseudomonas J44.9 Chronic obstructive pulmonar y disease, unspecified J96.11 Chronic respiratory failure with hypoxia J90 Pleural effusion, not elsewh ere classified Office Visit 03/12/2021 3:00p [facility] Pra swapnil Arthur, RPA-C D50.9 Iron deficiency anemia, unsp ecified R19.5 Other fecal abnormalities Z86.010 Personal history of colonic polyps Z80.0 Family history of malignant neoplasm of digestive organs Office Visit 03/08/2021 1:45p [facility] Sheng Thacker MD J44.9 Chronic obstructive pulmonary disease, u nspecified J96.11 Chronic respiratory failure with hypoxia 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 G47.33 Obstructive sleep apnea (maryann lt) (pediatric) 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 Z79.899 Other manager intermediate (current) dr rocha therapy J30.9 Allergic rhinitis, unspecifi ed Assessments Date Code Description Provider 07/03/2021 R91.8 Other nonspecific abnormal findi ng of lung field Bentley Thacker MD 07/03/2021 J96.11 Chronic respiratory failure with hypoxia Bentley Thacker MD 07/03/2021 Z99.81 Dependence on supplemental oxyge n Bentley Thacker MD 07/03/2021 G47.33 Obstructive sleep apnea (adult) (pediatric) Bentley Thacker MD 07/03/2021 J44.9 Chronic obstructive pulmonary di sease, unspecified Bentley Thacker MD 07/03/2021 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 06/21/2021 J91.8 Pleural effusion in other condit ions classified elsewhere Sharda Faith M.D. 06/21/2021 J96.11 Chronic respiratory failure with hypoxia Sharda Faith M.D. 05/21/2021 J96.11 Chronic respiratory failure with hypoxia Bentley Thacker MD 05/21/2021 Z99.81 Dependence on supplemental oxyge n Bentley Thacker MD 05/21/2021 G47.33 Obstructive sleep apnea (adult) (pediatric) Bentley Thacker MD 05/21/2021 Z79.52 retirement (current) use of syste clint steroids Bentley Thacker MD 05/21/2021 Z79.899 Other manager intermediate (current) drug t herapy Bentley Thacker MD 05/21/2021 J47.9 Bronchiectasis, uncomplicated La wrtasia Thacker MD 05/04/2021 J90 Pleural effusion, not elsewhere classified Hipolito Granados D.O. 05/04/2021 J44.9 Chronic obstructive pulmonary di sease, unspecified Hipolito Granados D.O. 05/04/2021 E87.6 Hypokalemia Hipolito Granados D.O. 05/03/2021 J15.1 Pneumonia due to Pseudomonas Maycol id Sangita Gordon, DO 05/03/2021 J90 Pleural effusion, not elsewhere classified Shukri Gordon, DO 05/03/2021 J44.9 Chronic obstructive pulmonary di sease, unspecified Shukri Gordon, DO 05/02/2021 J15.1 Pneumonia due to Pseudomonas Maycol id Sangita Gordon, DO 05/02/2021 J90 Pleural effusion, not elsewhere classified Shukri Gordon, DO 05/02/2021 J44.9 Chronic obstructive pulmonary di sease, unspecified Shukri Gordon, DO 05/01/2021 J15.1 Pneumonia due to Pseudomonas Maycol id Sangita Gordon, DO 05/01/2021 J44.9 Chronic obstructive pulmonary di sease, unspecified Shukri Gordon, DO 05/01/2021 J90 Pleural effusion, not elsewhere classified Shukri Gordon, DO 04/29/2021 J15.1 Pneumonia due to Pseudomonas Sharda Rocha M.D. 04/29/2021 J44.9 Chronic obstructive pulmonary di sease, unspecified Sharda Faith M.D. 04/29/2021 J96.11 Chronic respiratory failure with hypoxia Sharda Faith M.D. 04/29/2021 J90 Pleural effusion, not elsewhere classified Sharda Faith M.D. 03/12/2021 D50.9 Iron deficiency anemia, unspecif ied Kiel Arthur, [facility] 03/12/2021 R19.5 Other fecal abnormalities Laura Arthur, [facility] 03/12/2021 Z86.010 Personal history of colonic poly ps Kiel Arthur, [facility] 03/12/2021 Z80.0 Family history of malignant neop lasm of digestive organs Kiel Arthur, [facility] 03/08/2021 J44.9 Chronic obstructive pulmonary di sease, unspecified Bentley Thacker MD 03/08/2021 J96.11 Chronic respiratory failure with hypoxia Bentley Thacker MD 03/08/2021 Z99.81 Dependence on supplemental oxyge n Bentley Thacker MD 03/08/2021 G47.33 Obstructive sleep apnea (adult) (pediatric) Bentley Thacker MD 03/08/2021 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 Bentley Thacker MD 03/08/2021 Z79.899 Other manager intermediate (current) drug t herapy Bentley Thacker MD 03/08/2021 J30.9 Allergic rhinitis, unspecified L jack Thacker MD Plan of Treatment Future Appointment(s):* 07/27/2021 12:50 pm - Shukri Hutchinson MD at [facility] 07/03/2021 - Bentley Thacker MD* R91.8 Other nonspecific abnormal finding of lung field * J96.11 Chronic respiratory failure with hypoxia * Z99.81 Dependence on supplemental oxygen * G47.33 Obstructive sleep apnea (adult) (pediatric) * J44.9 Chronic obstructive pulmonary disease, unspecified * Z79.52 retirement (current) use of systemic steroids * * New Xrays:* CT Chest W/O Contrast, Scheduled: 08/07/21 * Comments:* ~ At this point, my hope is that his residual fluid is sterile, as he clearly feels better. He has no fevers or chills. He is off antibiotics, and his appetite is markedly improved. I did have a long discussion with him regarding the fact that should he have a flare of his bronchiectasis anywhere near the fluid collection, it is not uncommon that he seeded it, and we need to be on the lookout for that.~ I have encouraged him to follow what they are doing from a dietary standpoint and for him to increase his activity level, as we need to rebuild his muscle mass.~ Otherwise, his medications are up to date, and he is compliant.~ Regarding his sleep-related issues, he said he has an appointment with primary on Friday, considering a low-dose anxiolytic. In the meantime, I have asked him to get some quick-dissolve melatonin, and try taking 10 or 20 mg at bedtime. ~ He will be due for a repeat CT scan. That should be done late-July, early-August. I will make those arrangements, and see him in return at that time.~ He can, certainly, call sooner if problems arise with which we can be of assistance. * Follow up:* Late Jul/ early Aug with CT chest Functional Status Description No Information Available Mental Status Description No Information Available Referrals Description No Information Available
--- OUTSIDE RECORDS SUMMARY | 2021-09-10 11:50 | CCD | Continuity of Care Document ---
Author Author Lab Kath, Shukri [place] Organization Unknown Address [address] [address] Phone Unavailable Care Team Providers Care Speech Language Pathologist Prn Name Role Phone Bentley Thacker MD AUTM [phone] Arron Deras JR, MD AUTM Unavailable [facility] AUTM [phone] Trino Betancourt MD AUTM Raciel Gill MD AUTM [phone] Morales Jade MD AUTM [phone] Bhavin Stanton MD AUTM [phone] Guero Norman MD AUTM [phone] [facility] Physica AUTM [phone] [facility] Hea AUTM [phone] Problems Active Problems Provider Date Benign essential [...] daily 60tabs Arron Deras MD 12/26/2020 Nystatin [id number] Suspension swish and spit 5ml as needed [...] Administration Of Flu Vaccine Inj ection Kenroy Weston [facility] 08/08/2015 Administration Of Flu Vaccine Inj ection Luciano Deleon D.O. 08/21 Administration Of Flu Vaccine Inj ermaion Arron Deras MD 08/27/2004 Administration Of Flu Vaccine Inj ection Arron Deras MD 08/16/2003 Administration Of Flu Vaccine Inj ection Arron Deras MD 10/01/2002 Immunizations CPT Code Status Date Vaccine Lot # U-Flu Given 07/20/2020 Influenza,Unspecified U-Flu Given 07/19/2019 Influenza,Unspecified 51150 Given 07/17/2018 Shingrix Zoster Vaccine (HZV), Recombinant, Subunit, Adjuvanted U-Flu Given 07/08/2018 Influenza,Unspecified 79603 Given 02/24/2018 Shingrix 51589 Given 10/21/2016 Pneumovax 23 [id number] U-PneuC Given 10/14/2015 Prevnar 13 [id number] Given 08/08/2015 Fluvirin Virus Vaccine 67808 01 63170 Given 03/31/2008 Zoster Vaccine 27296 Given 08/18/2007 Influenza Virus Vaccine 38876 Given 10/09/2006 Influenza Virus Vaccine 42454 Given 09/26/2006 Pneumovax 23 59556 Given 08/21/2005 Influenza Virus Vaccine 47532 Given 08/27/2004 Influenza Virus Vaccine 24985 Given 08/16/2003 Influenza Virus Vaccine 50845 Given 10/01/2002 Influenza Virus Vaccine 36307 Given 05/25/1998 Tetanus Toxoid 44348 Refused 08/19/2018 Influenza Virus Vaccine, Quadrivalent (Cciiv4), [...] H/L Range Note Ua Dipstick Only 07/09/2021 [facility] Super[facility] Hotel: [place] [address] [phone] Urine Color YELLOW Yellow Urine Appearance CLEAR Clear Urine PH 6.5 units 5.0 - 9.0 Urine Specific Revillo 1.015 1.005 - 1.030 Urine Leukocytes NEGATIVE Negative Urine Blood NEGATIVE Negative Urine Protein NEGATIVE Negative -Trace Urine Glucose NEGATIVE mg/dL Negative Urine Nitrite NEGATIVE Negative Urine Ketone NEGATIVE mg/dL Negative Urine Bilirubin NEGATIVE Negative Urine Urobilinogen 0.2 mg/dL 0.2 - 1.0 Manual Differential 07/06/2021 [facility] [address] [place], [place] [id number] [phone] Neutrophils 88 % High 28-66 Lymphocytes 5 % Low 16-44 Monocytes 7 % High 0-5 Platelet Estimate NORMAL Normal Normal Complete Blood Count 07/06/2021 [facility] Hotel: [place] [address] [phone] WBC 18.1 x10*3/UL High 4.1 - 10.9 [...] 2.0 - 7.8 Comprehensive Chem Profile 07/06/2021 [facility] [employer] [employer] Hotel: [place] [address] [phone] Glucose 107 mg/dL High 74 - 99 [...] 3 Influenza A/B RSV Covid Amp 06/20/2021 [place] [address] [phone] Influenza A Amplification NEGATIVE Normal Negati ve 4 Influenza B Amplification NEGATIVE Normal Negative 5 RSV Amplification NEGATIVE Normal Negative 6 Sars Covid-19 Amplification NEGATIVE Normal Negative 7 Laboratory test finding 06/20/2021 [place] [id number] [phone] NT-Pro BNP 698 pg/mL High <450 Thyroid Stimulating Hormone 0.820 uIU/ML Normal 0.358-3.740 Liver Profile 06/20/[address] [address] [phone] Ast/Sgot 115 U/L High 7-37 Alt/SGPT 244 U/L High 12-78 Alkaline Phosphatase 143 U/L High 45-117 Bilirubin,Total 0.3 mg/dL Normal 0.2-1.0 Bilirubin,Direct 0.1 mg/dL Normal 0.0-0.2 Total Protein 6.5 GM/DL Normal 6.4-8.2 Albumin 2.4 GM/DL Low 3.2-5.2 Albumin/Globulin Ratio 0.6 Normal Laboratory test finding 06/20/[address] [address] [phone] Lactic Acid Sepsis Protocol 1.1 mmol/L Normal 0.4- 2.0 8 Arterial Blood Gas 06/20/[address] [address] [phone] ABG pH (Arterial) 7.471 units High 7.350-7.450 ABG Partial Pressure Co2 38.5 mmHg Normal 35.0-45.0 ABG Partial Pressure O2 107.9 mmHg High 75.0-100.0 ABG Total Co2 28.6 mEq/L Normal 23.0-31.0 ABG Hco3 27.5 mEq/L High 22.0-26.0 ABG Base Excess 3.6 High -2.0-2.0 ABG Standard Hco3 27.7 mEq/L High 22.0-26.0 ABG O2 Saturation 98.3 % Normal 95.0-99.0 Istat Chem8+ Panel 06/20/2021 [facility] [address] [place], [place] [id number] [phone] iSTAT HCT 33.0 % Low 38.0-51.0 iSTAT Glucose 141 mg/dL High 70-105 iSTAT Sodium 136 mEq/L Normal 136-145 iSTAT Potassium 4.3 mEq/L Normal 3.5-5.1 iSTAT CA++ 4.7 mg/dL Normal 4.5-5.3 iSTAT Chloride 99 mEq/L Normal 98-109 iSTAT Co2 24.0 MM/L Normal 23.0-27.0 iSTAT BUN 28 mg/dL High 8-26 iSTAT Creatinine 0.4 mg/dL Low 0.6-1.3 CBC With Differential 06/20/2021 [place] [address] [place], [place] [id number] [phone] White Blood Count 8.8 10 Normal 4.0-10.0 [...] 36.0-66.0 Lymph % 6.3 % Low 24.0-44.0 [place] % 5.3 % Normal 2.0-8.0 Eos % 0.0 % Normal 0.0-3.0 Baso % 0.3 % Normal 0.0-1.0 Immature Granulocyte % 0.8 % Normal 0-3.0 Nucleated Red Blood Cell % 0.0 % Normal 0-0 Neutrophils # 7.7 10 Normal 1.5-8.5 Lymph # 0.6 10 Low 1.5-5.0 [place] # 0.5 10 Normal 0.0-0.8 Eos # 0.0 10 Normal 0.0-0.5 Baso # 0.0 10 Normal 0.0-0.2 Complete Blood Count 06/19/2021 [facility] Super[facility] Hotel: [place] [address] [phone] WBC 10.3 x10*3/UL 4.1 - 10.9 RBC [...] 2.0 - 7.8 Comprehensive Chem Profile 06/19/2021 [facility] Hotel: Dr Arron [place] [address] [phone] Glucose 149 mg/dL High 74 - 99 [...] mL/min >60 11 Complete Blood Count 05/09/2021 [facility] Hotel: [place] [address] [phone] WBC 16.6 x10*3/UL High 4.1 - 10.9 [...] 2.0 - 7.8 Basic Metabolic Panel 05/09/2021 [facility] Hotel: Dr Arron [place] [address] [phone] Glucose 87 mg/dL 74 - 99 13 [...] mL/min >60 15 CBC With Differential 04/28/[address] [address] [phone] White Blood Count 21.6 10 High 4.0-10.0 [...] % 0.0 % Normal 0-0 Differential 04/28/2021 [place] [id number] [phone] Neutrophils 62 % Normal 28-66 Bands 30 % High < 11 Lymphocytes 1 % Low 16-44 Monocytes 5 % Normal 0-5 Eosinophils 2 % Normal 0-3 Anisocytosis 1+ Normal Microcytosis 2+ Normal Laboratory test finding 04/28/[address] [address] [phone] Platelet Estimate NORMAL Normal Normal Respiratory Panel 04/28/[address] [address] [phone] Respiratory Panel This respiratory <SEE NOTE> 16 Venous Blood Gas 04/28/2021 [facility] [address] [place] [address] [phone] Venous PH 7.424 units Normal 7.330-7.430 Venous Partial Pressure Co2 33.9 mmHg Low 38.0-50.0 Venous Partial Pressure O2 65.4 mmHg High 30.0-50.0 Venous Total Co2 22.7 mEq/L Low 24.0-28.0 Venous Hco3 21.7 mEq/L Low 23.0-27.0 Venous Base Excess -2.0 Normal -2.0-2.0 Venous Standard Hco3 22.7 mEq/L Normal Venous O2 Saturation 92.9 % High 60.0-80.0 Laboratory test finding 04/28/[address] [address] [phone] Lactic Acid Sepsis Protocol 1.6 mmol/L Normal 0.4- 2.0 17 Cardiac Marker Panel 04/28/2021 [facility] [address] [place] [address] [phone] CPK Creatine Phosphokinase 143 U/L Normal 39-30 8 CK-MB Value Mass 3.2 NG/ML Normal <3.6 MB/CK Relative Index 2.24 Normal < Or =4 18 Troponin I 0.07 NG/ML Normal < 0.10 19 Liver Profile 04/28/2021 [facility] [address] [place] [address] [phone] Ast/Sgot 33 U/L Normal 7-37 Alt/SGPT 56 U/L Normal 12-78 Alkaline Phosphatase 78 U/L Normal 45-117 Bilirubin,Total 0.5 mg/dL Normal 0.2-1.0 Bilirubin,Direct 0.2 mg/dL Normal 0.0-0.2 Total Protein 6.2 GM/DL Low 6.4-8.2 Albumin 2.2 GM/DL Low 3.2-5.2 Albumin/Globulin Ratio 0.6 Normal Basic Metabolic Profile 04/28/[address] [address] [phone] Glucose, Fasting 125 mg/dL High 70-100 Blood [...] Low 8.8-10.2 Laboratory test finding 04/28/[address] [place] [id number] [phone] NT-Pro BNP 2940 pg/mL High <450 Thyroxine (T4) 6.4 g/dL Normal 4.5-12.0 Thyroid Stimulating Hormone 1.020 uIU/ML Normal 0.358-3.740 Coronavirus 2019 Nasopharygeal 04/05/[address] [address] [phone] Coronavirus 2019 Nasopharygeal NOTE: The COVID- <SEE N OTE> 21 Complete Blood Count 01/12/2021 [facility] Hotel: [place] [address] [phone] WBC 11.9 x10*3/UL High 4.1 - 10.9 [...] - 7.8 Total Iron Binding Capacit 01/12/[address] [address] [phone] Iron (Fe) 92 g/dL Normal 65-175 Total Iron Binding Capacity 318 g/dL Normal 250-450 Percent Saturation 28.9 % Normal 19.7-50.0 1 NOTE: RESULT VERIFIED .MANUAL DIFFERENTIAL SENT TO [facility] FOR MAREN IFICATION. 2 100-125 mg/dL PRE-DIABET ES/FASTING >126 mg/dL DIABETES/FASTING 3 CHRONIC KIDNEY DISEASE STAGI NG PER NKF STAGE I & II GFR >= 60 NORMAL TO MILDLY DECREASED STAGE III GFR 30-59 MODERATELY DECREASED STAGE IV GFR 15-29 SEVERELY DECREASED STAGE V GFR <15 VERY LITTLE GFR LEFT ESRD GFR <15 ON WHOLESALE REPRESENTATIVE 4 Negative results do not prec lude [...] pathogens. DISCLAIMER: Testing was performed using the [employer] SARS-CoV-2 test. This test was developed and its performance characteristics determined by [employer]. This test has not been FDA cleared [...] LITTLE GFR LEFT ESRD GFR <15 ON WHOLESALE REPRESENTATIVE 12 NOTE: RESULT VERIFIED. 13 100-125 mg/dL PRE-DIABET ES/FASTING >126 mg/dL DIABETES/FASTING 14 NOTE: RESULT VERIFIED. 15 CHRONIC KIDNEY DISEASE STAGI NG PER NKF STAGE I & II GFR >= 60 NORMAL TO MILDLY DECREASED STAGE III GFR 30-59 MODERATELY DECREASED STAGE IV GFR 15-29 SEVERELY DECREASED STAGE V GFR <15 VERY LITTLE GFR LEFT ESRD GFR <15 ON WHOLESALE REPRESENTATIVE 16 This respiratory PCR panel d etects [...] 19 Troponin I Reference Interva l for Code Rebel LOCI: 99th Percentile= 0.00-0.045 ng/ml Risk Stratification: [...] Little GFR Left ESRD GFR <15 on WHOLESALE REPRESENTATIVE 21 NOTE: The COVID-19 assay is under Emergency Use Authorization (EUA) by the U.S. Food and Drug Administration. [facility] is designated as a high complexity laboratory by the Clinical Laboratory Improvement Amendments of 1988(CLIA) and is qualified to perform this test. ASSAY INFORMATION: Real Time RT-PCR or TMA. Both RT-PCR and TMA are molecular testing modalities and are recommended by the CDC for passenger travel. Not Detected 22 NOTE: cbc verified Procedures Date Code Description Status 06/19/2021 37207 Office/Outpatient Established Mo d MDM 30-39 Min Completed 05/23/2021 19859 Office/Outpatient Established Mo d MDM 30-39 Min Completed 05/09/2021 10475 Iros Cre SRV W/I 7 Days Of DC, C omm W/I 2 Dys Med Rec Completed 03/22/2016 [id number] Colonoscopy Completed 02/03/2015 [id number] Colonoscopy Completed 01/06/2014 [id number] Colonoscopy Completed 05/24/2011 [id number] Colonoscopy Completed 04/21/2007 [id number] Colonoscopy Completed Medical Devices Description No Information Available Encounters Type Date Location Provider Dx Diagnosis Office Visit 06/19/2021 1:30p [facility] MD J44.9 Chronic obstructive pulmonary disease, u nspecified J47.9 Bronchiectasis, uncomplicate d J96.11 Chronic respiratory failure with hypoxia Z79.52 intermediate (current) use of s ystemic steroids G47.33 Obstructive sleep apnea (maryann lt) (pediatric) J18.1 Lobar pneumonia, unspecified organism I95.1 Orthostatic hypotension D64.9 Anemia, unspecified Office Visit 05/23/2021 10:40a [facility] k[facility] MD J44.9 Chronic obstructive pulmonary disease, u nspecified J96.11 Chronic respiratory failure with hypoxia D64.9 Anemia, unspecified G47.33 Obstructive sleep apnea (maryann lt) (pediatric) Z79.52 intermediate (current) use of s ystemic steroids E78.00 Pure hypercholesterolemia, u nspecified I95.1 Orthostatic hypotension Office Visit 05/09/2021 9:40a [facility] kellogg JR PA J18.1 Lobar pneumonia, unspecified organism I10 Essential (primary) hyperten zac J44.9 Chronic obstructive pulmonar y disease, unspecified G47.33 Obstructive sleep apnea (maryann lt) (pediatric) D64.9 Anemia, unspecified J96.11 Chronic respiratory failure with hypoxia M48.061 Spinal stenosis, lumbar rebecca on without neurogenic douglas Z79.52 intermediate (current) use of s ystemic steroids Assessments [...] Deras MD 06/19/2021 J47.9 Bronchiectasis, uncomplicated Co llsandra Deras MD 06/19/2021 J96.11 Chronic respiratory failure with hypoxia Arron Deras MD 06/19/2021 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 [...] hypoxia Arron Deras MD 05/23/2021 D64.9 Anemia, marissaified Arron lao MD 05/23/2021 G47.33 Obstructive sleep apnea (adult) (pediatric) Arron Deras MD 05/23/2021 Z79.52 intermediate (current) use of syste clint steroids Arron [...] neurogenic claudication HINA Penn JR 05/09/2021 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 06/19/2021 - Arron Deras MD* J44.9 Chronic obstructive pulmonary disease, unspecified * J47.9 Bronchiectasis, uncomplicated * J96.11 Chronic respiratory failure with hypoxia * Z79.52 intermediate (current) use of systemic steroids * G47.33 [...]
--- OUTSIDE RECORDS SUMMARY | 2021-09-10 11:51 | CCD | Continuity of Care Document ---
Author Author Shukri HERNÁNDEZ DO Organization Unknown Address [address] [facility] [address] [place] [address] Phone [phone] Care Team Providers Care Jackscrew Man Name Role Phone Bentley Thacker MD AUTM [phone] Arron Hernández JR, MD AUTM Unavailable [facility] AUTM [phone] Trino Betancourt MD AUTM Raciel Gill MD AUTM [phone] Morales Jade MD AUTM [phone] Bhavin Stanton MD AUTM [phone] Guero Norman MD AUTM [phone] [facility] AUTM [phone] [facility] AUTM [phone] Problems Active Problems Provider Date Benign essential [...] daily 60tabs Arron Hernández MD 12/26/2020 Nystatin [id number]/ML Suspension swish and spit 5ml as needed twice a day for thrush 200ml Co llsandra Hernández MD 06/23/2020 Pulmicort 0.5mg/2ML Suspension 2 puffs daily Arron Hernández MD 05/19/2020 Mucinex DM Maximum Strength [...] Of Flu Vaccine Inj ection Kenroy Weston, [facility] 08/08/2015 Administration Of Flu Vaccine Inj ection Luciano Deleon D.O. 08/21 Administration Of Flu Vaccine Inj ection Arron Hernández MD 08/27/2004 Administration Of Flu Vaccine Inj ection Arron Hernández MD 08/16/2003 Administration Of Flu Vaccine Inj ection Arron Hernández MD 10/01/2002 Immunizations CPT Code Status Date Vaccine Lot # U-Flu Given 07/20/2020 Influenza,Unspecified U-Flu Given 07/19/2019 Influenza,Unspecified 06012 Given 07/17/2018 Shingrix Zoster Vaccine (HZV), Recombinant, Subunit, Adjuvanted U-Flu Given 07/08/2018 Influenza,Unspecified 77114 Given 02/24/2018 Shingrix 64663 Given 10/21/2016 Pneumovax 23 [id number] U-PneuC Given 10/14/2015 Prevnar 13 [id number] Given 08/08/2015 Fluvirin Virus Vaccine 36428 01 15799 Given 03/31/2008 Zoster Vaccine 16667 Given 08/18/2007 Influenza Virus Vaccine 96233 Given 10/09/2006 Influenza Virus Vaccine 97038 Given 09/26/2006 Pneumovax 23 38455 Given 08/21/2005 Influenza Virus Vaccine 84116 Given 08/27/2004 Influenza Virus Vaccine 17864 Given 08/16/2003 Influenza Virus Vaccine 49674 Given 10/01/2002 Influenza Virus Vaccine 19076 Given 05/25/1998 Tetanus Toxoid 41969 Refused 08/19/2018 Influenza Virus Vaccine, Quadrivalent (Cciiv4), [...] Date Facility Test Result H/L Range Note Influenza A/B RSV Covid Amp 06/20/2021 [facility] [address] [place] [address] [phone] Influenza A Amplification NEGATIVE Normal Negati ve 1 Influenza B Amplification NEGATIVE Normal Negative 2 RSV Amplification NEGATIVE Normal Negative 3 Sars Covid-19 Amplification NEGATIVE Normal Negative 4 Laboratory test finding 06/20/2021 [facility] [address], [place] [id number] [phone] NT-Pro BNP 698 pg/mL High <450 Thyroid Stimulating Hormone 0.820 uIU/ML Normal 0.358-3.740 Liver Profile 06/20/2021 [facility] [address], [place] [id number] [phone] Ast/Sgot 115 U/L High 7-37 Alt/SGPT 244 U/L High 12-78 Alkaline Phosphatase 143 U/L High 45-117 Bilirubin,Total 0.3 mg/dL Normal 0.2-1.0 Bilirubin,Direct 0.1 mg/dL Normal 0.0-0.2 Total Protein 6.5 GM/DL Normal 6.4-8.2 Albumin 2.4 GM/DL Low 3.2-5.2 Albumin/Globulin Ratio 0.6 Normal Laboratory test finding 06/20/2021 [facility] [address], [place] [id number] [phone] Lactic Acid Sepsis Protocol 1.1 mmol/L Normal 0.4- 2.0 5 Arterial Blood Gas [facility] [address] [place] [address] [phone] ABG pH (Arterial) 7.471 units High 7.350-7.450 ABG Partial Pressure Co2 38.5 mmHg Normal 35.0-45.0 ABG Partial Pressure O2 107.9 mmHg High 75.0-100.0 ABG Total Co2 28.6 mEq/L Normal 23.0-31.0 ABG Hco3 27.5 mEq/L High 22.0-26.0 ABG Base Excess 3.6 High -2.0-2.0 ABG Standard Hco3 27.7 mEq/L High 22.0-26.0 ABG O2 Saturation 98.3 % Normal 95.0-99.0 Istat Chem8+ Panel 06/20/2021 [facility] [address], [place] [id number] [phone] iSTAT HCT 33.0 % Low 38.0-51.0 iSTAT Glucose 141 mg/dL High 70-105 iSTAT Sodium 136 mEq/L Normal 136-145 iSTAT Potassium 4.3 mEq/L Normal 3.5-5.1 iSTAT CA++ 4.7 mg/dL Normal 4.5-5.3 iSTAT Chloride 99 mEq/L Normal 98-109 iSTAT Co2 24.0 MM/L Normal 23.0-27.0 iSTAT BUN 28 mg/dL High 8-26 iSTAT Creatinine 0.4 mg/dL Low 0.6-1.3 CBC With Differential 06/20/2021 [facility] [address] [place] [address] [phone] White Blood Count 8.8 10 Normal 4.0-10.0 [...] 36.0-66.0 Lymph % 6.3 % Low 24.0-44.0 [place] % 5.3 % Normal 2.0-8.0 Eos % 0.0 % Normal 0.0-3.0 Baso % 0.3 % Normal 0.0-1.0 Immature Granulocyte % 0.8 % Normal 0-3.0 Nucleated Red Blood Cell % 0.0 % Normal 0-0 Neutrophils # 7.7 10 Normal 1.5-8.5 Lymph # 0.6 10 Low 1.5-5.0 [place] # 0.5 10 Normal 0.0-0.8 Eos # 0.0 10 Normal 0.0-0.5 Baso # 0.0 10 Normal 0.0-0.2 Complete Blood Count 06/19/2021 [facility] Lumber Sticker: Dr Arron Hernández [place] [address] [phone] WBC 10.3 x10*3/UL 4.1 - 10.9 RBC 4.70 x10*6/UL 4.20 - 6.30 Hemoglobin 11.2 g/dL Low 12.0 - 18.0 6 Hematocrit 33.0 % Low 37.0 - 51.0 [...] 2.0 - 7.8 Comprehensive Chem Profile 06/19/2021 [facility] Lumber Sticker: Dr Arron Hernández [place] [address] [phone] Glucose 149 mg/dL High 74 - 99 7 BUN 30 mg/dL High 7 - 18 [...] mL/min >60 GFR >= 60 mL/min >60 8 Complete Blood Count 05/09/2021 [facility] Lumber Sticker: Dr Arron Hernán[place] [address] [phone] WBC 16.6 x10*3/UL High 4.1 - 10.9 9 RBC 4.62 x10*6/UL 4.20 - 6.30 Hemoglobin [...] 2.0 - 7.8 Basic Metabolic Panel 05/09/2021 [facility] Lumber Sticker: Dr Arron Hernández [place], [place] [id number] [phone] Glucose 87 mg/dL 74 - 99 10 BUN 14 mg/dL 7 - 18 Creatinine 0.8 mg/dL 0.6 - 1.3 Sodium 136 mEq/L 136 - 145 Potassium 3.6 mEq/L 3.5 - 5.1 Chloride 100 mEq/L 98 - 107 Carbon Dioxide 26 mEq/L 21 - 32 Calcium 8.4 mg/dL Low 8.5 - 10.1 11 GFR >= 60 mL/min >60 GFR >= 60 mL/min >60 12 CBC With Differential 04/28/[address] [id number] [phone] White Blood Count 21.6 10 High 4.0-10.0 [...] % 0.0 % Normal 0-0 Differential 04/28/2021 [facility] [address] [place] [address] [phone] Neutrophils 62 % Normal 28-66 Bands 30 % High < 11 Lymphocytes 1 % Low 16-44 Monocytes 5 % Normal 0-5 Eosinophils 2 % Normal 0-3 Anisocytosis 1+ Normal Microcytosis 2+ Normal Laboratory test finding 04/28/2021 [facility] [address] [place] [address] [phone] Platelet Estimate NORMAL Normal Normal Respiratory Panel 04/28/[address] [address] [phone] Respiratory Panel This respiratory <SEE NOTE> 13 Venous Blood Gas 04/28/[address] [address] [phone] Venous PH 7.424 units Normal 7.330-7.430 Venous Partial Pressure Co2 33.9 mmHg Low 38.0-50.0 Venous Partial Pressure O2 65.4 mmHg High 30.0-50.0 Venous Total Co2 22.7 mEq/L Low 24.0-28.0 Venous Hco3 21.7 mEq/L Low 23.0-27.0 Venous Base Excess -2.0 Normal -2.0-2.0 Venous Standard Hco3 22.7 mEq/L Normal Venous O2 Saturation 92.9 % High 60.0-80.0 Laboratory test finding 04/28/[address] [address] [phone] Lactic Acid Sepsis Protocol 1.6 mmol/L Normal 0.4- 2.0 14 Cardiac Marker Panel 04/28/2021 [facility] [address] [place] [address] [phone] CPK Creatine Phosphokinase 143 U/L Normal 39-30 8 CK-MB Value Mass 3.2 NG/ML Normal <3.6 MB/CK Relative Index 2.24 Normal < Or =4 15 Troponin I 0.07 NG/ML Normal < 0.10 16 Liver Profile 04/28/2021 [facility] [address] [place] [address] [phone] Ast/Sgot 33 U/L Normal 7-37 Alt/SGPT 56 U/L Normal 12-78 Alkaline Phosphatase 78 U/L Normal 45-117 Bilirubin,Total 0.5 mg/dL Normal 0.2-1.0 Bilirubin,Direct 0.2 mg/dL Normal 0.0-0.2 Total Protein 6.2 GM/DL Low 6.4-8.2 Albumin 2.2 GM/DL Low 3.2-5.2 Albumin/Globulin Ratio 0.6 Normal Basic Metabolic Profile 04/28/[address] [phone] Glucose, Fasting 125 mg/dL High 70-100 Blood Urea Nitrogen 28 mg/dL High 7-18 Creatinine For GFR 1.13 mg/dL Normal 0.70-1.30 Glomerular Filtration Rate > 60.0 Normal >42 1 7 Sodium Level 130 mEq/L Low 136-145 Potassium Serum 4.9 mEq/L Normal 3.5-5.1 Chloride Level 99 mEq/L Normal 98-107 Carbon Dioxide Level 22 mEq/L Normal 21-32 Anion Gap 9 mEq/L Normal 8-16 Calcium Level 8.3 mg/dL Low 8.8-10.2 Laboratory test finding 04/28/[address] [id number] [phone] NT-Pro BNP 2940 pg/mL High <450 Thyroxine (T4) 6.4 g/dL Normal 4.5-12.0 Thyroid Stimulating Hormone 1.020 uIU/ML Normal 0.358-3.740 Coronavirus 2019 Nasopharygeal 04/05/[address] [address] [phone] Coronavirus 2019 Nasopharygeal NOTE: The COVID- <SEE N OTE> 18 Complete Blood Count 01/12/2021 [facility] [employer] Sticker: Dr Arron Hernández [place] [address] [phone] WBC 11.9 x10*3/UL High 4.1 - 10.9 19 RBC 5.32 x10*6/UL 4.20 - 6.30 Hemoglobin [...] - 7.8 Total Iron Binding Capacit 01/12/[address] [address] [phone] Iron (Fe) 92 g/dL Normal 65-175 Total Iron Binding Capacity 318 g/dL Normal 250-450 Percent Saturation 28.9 % Normal 19.7-50.0 1 Negative results do not prec lude influenza or RSV virus infection and should not be used as the sole basis for treatment or other patient management decisions. 2 Negative results do not prec lude influenza or RSV virus infection and should not be used as the sole basis for treatment or other patient management decisions. 3 Negative results do not prec lude influenza or RSV virus infection and should not be used as the sole basis for treatment or other patient management decisions. 4 A false negative result may occur if [...] pathogens. DISCLAIMER: Testing was performed using the [employer] SARS-CoV-2 test. This test was developed and its performance characteristics determined by [employer]. This test has not been FDA cleared [...] the authorization is terminated or revoked sooner. 5 Y/N query for Sepsis Lactate Rule: Y 6 NOTE: RESULT VERIFIED. 7 100-125 mg/dL PRE-DIABET ES/FASTING >126 mg/dL DIABETES/FASTING 8 CHRONIC KIDNEY DISEASE STAGI NG PER NKF STAGE I & II GFR >= 60 NORMAL TO MILDLY DECREASED STAGE III GFR 30-59 MODERATELY DECREASED STAGE IV GFR 15-29 SEVERELY DECREASED STAGE V GFR <15 VERY LITTLE GFR LEFT ESRD GFR <15 ON WASTEWATER DESIGN ENGINEER 9 NOTE: RESULT VERIFIED. 10 100-125 mg/dL PRE-DIABET ES/FASTING >126 mg/dL DIABETES/FASTING 11 NOTE: RESULT VERIFIED. 12 CHRONIC KIDNEY DISEASE STAGI NG PER NKF STAGE I & II GFR >= 60 NORMAL TO MILDLY DECREASED STAGE III GFR 30-59 MODERATELY DECREASED STAGE IV GFR 15-29 SEVERELY DECREASED STAGE V GFR <15 VERY LITTLE GFR LEFT ESRD GFR <15 ON WASTEWATER DESIGN ENGINEER 13 This respiratory PCR panel d etects Influenza A H1, H3 and 2009 H1 viruses, Influenza B virus, Resp iratory Syncytial Virus, Human metapneumovirus, Parainfluenza virus 1, 2, 3 and 4, Adenovirus, Rhinovirus/Enterovirus, Coronavirus HKU1, NL63, OC43, 229E and SARS-CoV-2 (COVID 19), Bordetella pertussis, Bordetella parapertussis, Mycoplasma pneumoniae and Chlamydia pneumoniae. NEGATIVE by MULTIPLEXED NUCLEIC ACID PCR SARS-CoV-2 (COVID 19) NEGATIVE - SARS-CoV-2 (COVID19) 14 Y/N query for Sepsis Lactate Rule: Y 15 DIAGNOSIS CRITERIA MMB ng/ml Relative Index (RI) NON-AMI < or = 5 N/A [place] ZONE > 5 < or = 4 AMI > 5 > 4 16 Troponin I Reference Interva l for [place] LOCI: 99th Percentile= 0.00-0.045 ng/ml Risk Stratification: <= 0.10 ng/ml Decreased Risk for Adverse Clinical Events. 0.10-1.50 ng/ml Increased Risk for Adv erse Clinical Events. Evaluation of additional criterion and/or repeat testing in 2-6 hours is suggested to rule out myocardial damage. >= 1.50 ng/ml Indicative of Myocardial Injury. 17 Units are mL/min/1.73 m2 Chronic Kidney Disease Staging per NKF: Stage I & II GFR >=60 Normal to Mildly Decreased Stage III GFR 30-59 Moderately Decreased Stage IV GFR 15-29 Severely Decreased Stage V GFR <15 Very Little GFR Left ESRD GFR <15 on WASTEWATER DESIGN ENGINEER 18 NOTE: The COVID-19 assay is under Emergency Use Authorization (EUA) by the U.S. Food and Drug Administration. [employer] [facility] [employer] is designated as a high complexity laboratory by the Clinical Laboratory Improvement Amendments of 1988(CLIA) and is qualified to perform this test. ASSAY INFORMATION: Real Time RT-PCR or TMA. Both RT-PCR and TMA are molecular testing modalities and are recommended by the CDC for passenger travel. Not Detected 19 NOTE: cbc verified Procedures Date Code Description Status 06/19/2021 87914 Office/Outpatient Established Mo d MDM 30-39 Min Completed 05/23/2021 65071 Office/Outpatient Established Mo d MDM 30-39 Min Completed 05/09/2021 24724 [facility] SRV W/I 7 Days Of DC, C omm W/I 2 Dys Med Rec Completed 03/22/2016 [id number] Colonoscopy Completed 02/03/2015 [id number] Colonoscopy Completed 01/06/2014 [id number] Colonoscopy Completed 05/24/2011 [id number] Colonoscopy Completed 04/21/2007 [id number] Colonoscopy Completed Medical Devices Description No Information Available Encounters Type Date Location Provider Dx Diagnosis Office Visit 06/19/2021 1:30p [facility] MD J44.9 Chronic obstructive pulmonary disease, u nspecified J47.9 Bronchiectasis, uncomplicate d J96.11 Chronic respiratory failure with hypoxia Z79.52 USP (current) use of s ystemic steroids G47.33 Obstructive sleep apnea (maryann lt) (pediatric) J18.1 Lobar pneumonia, unspecified organism I95.1 Orthostatic hypotension D64.9 Anemia, unspecified Office Visit 05/23/2021 10:40a [facility] MD J44.9 Chronic obstructive pulmonary disease, u nspecified J96.11 Chronic respiratory failure with hypoxia D64.9 Anemia, unspecified G47.33 Obstructive sleep apnea (maryann lt) (pediatric) Z79.52 USP (current) use of s ystemic steroids E78.00 Pure hypercholesterolemia, u nspecified I95.1 Orthostatic hypotension Office Visit 05/09/2021 9:40a [facility] Townsend JR, [place] J18.1 Lobar pneumonia, unspecified organism I10 Essential (primary) hyperten zac J44.9 Chronic obstructive pulmonar y disease, unspecified G47.33 Obstructive sleep apnea (maryann lt) (pediatric) D64.9 Anemia, unspecified J96.11 Chronic respiratory failure with hypoxia M48.061 Spinal stenosis, lumbar rebecca on without neurogenic douglas 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 Assessments [...] Hernández, DO 07/06/2021 B37.9 Candidiasis, unspecified Zay marixa Hernández, DO 06/19/2021 J44.9 Chronic obstructive pulmonary di sease, unspecified Arron Hernández MD 06/19/2021 J47.9 Bronchiectasis, uncomplicated Co nghia Hernández MD 06/19/2021 J96.11 Chronic respiratory failure with hypoxia Arron Hernández MD 06/19/2021 Z79.52 computer terminal operator (current) use of syste clint steroids Arron [...] hypoxia Arron Hernández MD 05/23/2021 D64.9 Anemia, unspecified Arron lao MD 05/23/2021 G47.33 Obstructive sleep apnea (adult) (pediatric) Arron Hernández MD 05/23/2021 Z79.52 USP (current) use of syste clint steroids Arron [...] neurogenic claudication HINA Penn JR 05/09/2021 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 07/06/2021 - Trino Hernández, * J90 Pleural effusion, not elsewhere classified * J18.1 Lobar pneumonia, unspecified organism * J44.9 Chronic obstructive pulmonary disease, unspecified * R74.01 Elevation of levels of liver transaminase levels* Comments:* This is new since last cmp in 11/2020. It is is a mixed transaminitis pattern. RUQUS negative. Reported hepatitis studies negative in d/c summary. Highest on the differential is a DILI at this time. Statin was discontinued at discharge. Patient was also recently (06/19) started on fluconazole and mirtazapine. * D64.9 Anemia, unspecified * B37.9 Candidiasis, unspecified Functional Status Description No Information Available Mental Status Description No Information Available Referrals Description No Information Available
--- OUTSIDE RECORDS SUMMARY | 2021-09-10 11:51 | CCD | Continuity of Care Document ---
Author Author Shukri THACKER MD Organization Unknown Address [address] [place] [address] Phone [phone] Care Team Providers Care [employer] Healer Name Role Phone Arron Deras MD @ [facility] AUTM [phone] Trino Betancourt M.D. AUTM Bentley Thacker M.D. AUTM [phone] Problems Active Problems Provider Date Essential hypertension [...] current use of systemic steroid Nancy Carbone A.N.P Matti Onset: 06/03/2017 Chronic obstructive lung disease Nancy Carbone A.N.PMatti Onset: 06/03/2017 Ex-smoker Bentley Thacker MD Onset: 06/20/2015 Steroid Bentley Thacker MD Onset: 10/19/2014 Emphysematous bronchitis Bentley Thacker MD Onset: 12/02/19 13 Acute exacerbation of chronic obstructive airways disease To Nancy paredes A.N.PMatti Onset: 10/19/2012 Extrinsic asthma with asthma attack Jannie Fritz A.NMatti PMatti Onset: 07/30/2012 Asthma without status asthmaticus Bentley [...] as Needed 48units Lorin Thacker MD 07/24/2018 Midodrine HCL 5mg Tablets [...] po q6h prn for pain Unknown Nystatin 379815Dald/ML Suspension Use 5ML By Mouth Swish And [...] day Unknown Azithromycin 250mg Tablets Q M-W-FR 12tabs Bentley Thacker MD Symbicort 160-4.5mcg/Act Aerosol Use 2 Inhalations Twice A Day 30.6units Bentley Thacker MD Fluticasone Propionate 50mcg/Act Suspension Use 2 Sprays In Each Nostril Every Night AT Bedtime 48units Bentley Thacker MD History Medications Cipro 500mg Tablets [...] mouth twice a day x 10 days 20tabs Bentley Thacker MD 02/27/2021 - 10/29/2020 Medications Administered in Office Medication SIG Qnty Indications Ordering Provider Date Covid-19 vaccine, Unspecified Inj ection Unknown 12/25/2020 Covid-19 vaccine, Unspecified Inj ection Unknown 11/24/2020 Immunizations CPT Code Status Date Vaccine Lot # 16532 Given 07/29/2016 Influenza Virus Split 3 Yrs And Above For Intramuscular Use 81171 Given 08/08/2015 Influenza Virus Split 3 Yrs And Above For Intramuscular Use 81050 Given 07/13/2015 Pneumococcal PPSV23 84416 Given 12/27/2014 Prevnar 13 76606 Given 08/18/2014 Influenza Virus Split 3 Yrs And Above For Intramuscular Use Q2036 Given 08/04/2013 Influenza Vaccine 3 Years Of Age Or Older (Flulaval) Q2036 Given 07/14/2012 Influenza Vaccine 3 Years Of Age Or Older (Flulaval) 88238 Given 07/14/2012 Pneumococcal PPSV23 Q2036 Given 07/13/2012 Influenza Vaccine 3 Years Of Age Or Older (Flulaval) 52508 Given 08/07/2011 Influenza Virus Split 3 Yrs And Above For Intramuscular Use 44616 Given 09/26/2010 Pneumococcal PPSV23 59455 Given 07/24/2010 Influenza Virus Split 3 Yrs And Above For Intramuscular Use 10976 Given 09/29/2009 Influenza Vaccine 15532 Given 09/19/2008 Influenza Vaccine 93216 Given 08/25/2003 Pneumococcal PPSV23 97438 Given Unknown Pneumococcal PPSV23 74697 Given Unknown Prevnar 13 Vital Signs Date Vital Result Comment 07/03/2021 1:40pm BP Systolic 86 mmHg BP Diastolic 58 mmHg Heart Rate 74 /min O2 % BldC Oximetry 942 % Height 72 inches 6'0" Weight 127.00 lb BMI (Body Mass Index) 17.2 kg/m2 [place] Body Weight 178 lb Weight 57.607 kg BSA (Body Surface Area) 1.76 m2 05/21/2021 2:56pm BP Systolic 100 mmHg BP Diastolic 60 mmHg Heart Rate 86 /min O2 % BldC Oximetry 932 % Height 72 inches 6'0" [place] Body Weight 178 lb Results Test Acquired Date Facility Test Result H/L Range Note Complete Blood Count 03/13/2021 [facility] Main Lab [address] [place] [address] [phone] White Blood Count 13.3 10 High 4.0-10.0 [...] 0-0 1 Total Iron Binding Capacit 03/13/2021 [facility] Main Lab [address] [place], [place] [id number] [phone] Iron (Fe) 54 g/dL Low 65-175 Total Iron Binding Capacity 285 g/dL Normal 250-450 Percent Saturation 18.9 % Low 19.7-50.0 2 Comprehensive Metabolic Profil 03/13/2021 [facility] Main Lab [address] [place], [place] [id number] [phone] Glucose, Fasting 96 mg/dL Normal 70-100 Blood [...] Little GFR Left ESRD GFR <15 on FRANCHISE SPECIALIST 4 03/15/21 (Thr March 15) 09:17 A M KIEL CHARLEBOIS No significant abnormalities. Procedures Date Code Description Status 05/21/2021 20375 Office/Outpatient Established Mo d MDM 30-39 Min Completed 05/04/2021 10983 Hospital Subsequent Care Level 2 Completed 05/03/2021 57043 Hospital Subsequent Care Level 2 Completed 05/02/2021 29630 Hospital Subsequent Care Level 2 Completed 05/01/2021 95608 Hospital Subsequent Care Level 2 Completed 04/29/2021 35696 Hospital Initial Care Level 1 Co mpleted 03/12/2021 09007 Office/Outpatient New Low MDM 30 -44 Minutes Completed 03/08/2021 58373 Office/Outpatient Established Mo d MDM 30-39 Min Completed Medical Devices Description No Information Available Encounters Type Date Location Provider Dx Diagnosis Office Visit 05/21/2021 2:30p [facility] Sheng Thacker MD J96.11 Chronic respiratory failure with hypoxia 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 G47.33 Obstructive sleep apnea (maryann lt) (pediatric) Z79.52 penitentiary (current) use of s ystemic steroids Z79.899 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 J90 Pleural effusion, not elsewhere classifi ed J44.9 Chronic obstructive pulmonar y disease, unspecified E87.6 Hypokalemia Office Visit 05/03/2021 1:23a [facility] D avid P. Rechlin, DO J15.1 Pneumonia due to Pseudomonas J90 Pleural effusion, not elsewh ere classified J44.9 Chronic obstructive pulmonar y disease, unspecified Office Visit 05/02/2021 1:23a [facility] D avid P. Rechlin, DO J15.1 Pneumonia due to Pseudomonas J90 Pleural effusion, not elsewh ere classified J44.9 Chronic obstructive pulmonar y disease, unspecified Office Visit 05/01/2021 1:23a [facility] D avid P. Rechlin, DO J15.1 Pneumonia due to Pseudomonas J44.9 Chronic obstructive pulmonar y disease, unspecified J90 Pleural effusion, not elsewh ere classified Office Visit 04/29/2021 1:23a [facility] Sharda Green M.D. J15.1 Pneumonia due to Pseudomonas J44.9 Chronic obstructive pulmonar y disease, unspecified J96.11 Chronic respiratory failure with hypoxia J90 Pleural effusion, not elsewh ere classified Office Visit 03/12/2021 3:00p [facility] Pra padminiabdulkadir Arthur, RPA-C D50.9 Iron deficiency anemia, unsp ecified R19.5 Other fecal abnormalities Z86.010 Personal history of colonic polyps Z80.0 Family history of malignant neoplasm of digestive organs Office Visit 03/08/2021 1:45p [facility] Lawrenc vy Thacker MD J44.9 Chronic obstructive pulmonary disease, u nspecified J96.11 Chronic respiratory failure with hypoxia 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 G47.33 Obstructive sleep apnea (maryann lt) (pediatric) Z79.52 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 Z79.899 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) dr josefina gregory J30.9 Allergic rhinitis, unspecifi ed Assessments Date Code Description Provider 07/03/2021 R91.8 Other nonspecific abnormal findi ng of lung field Bentley Thacker MD 07/03/2021 J47.9 Bronchiectasis, uncomplicated Gisel Thacker MD 07/03/2021 J96.11 Chronic respiratory failure with hypoxia Bentley Thacker MD 07/03/2021 Z99.81 Dependence on supplemental oxyge n Bentley Thacker MD 07/03/2021 G47.33 Obstructive sleep apnea (adult) (pediatric) Bentley Thacker MD 07/03/2021 J44.9 Chronic obstructive pulmonary di sease, unspecified Bentley Thacker MD 07/03/2021 Z79.52 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 syste clint steroids Bentley Thacker MD 05/21/2021 J96.11 Chronic respiratory failure with hypoxia Bentley Thacker MD 05/21/2021 Z99.81 Dependence on supplemental oxyge n Bentley Thacker MD 05/21/2021 G47.33 Obstructive sleep apnea (adult) (pediatric) Bentley Thacker MD 05/21/2021 Z79.52 penitentiary (current) use of syste clint steroids Bentley Thacker MD 05/21/2021 Z79.899 Other penitentiary (current) drug t herapy Bentley Thacker MD 05/21/2021 J47.9 Bronchiectasis, uncomplicated Gisel Thacker MD 05/04/2021 J90 Pleural effusion, not elsewhere classified Hipolito Granados D.O. 05/04/2021 J44.9 Chronic obstructive pulmonary di sease, unspecified Hipolito Granados, D.O. 05/04/2021 E87.6 Hypokalemia Hipolito Granados D.O. 05/03/2021 J15.1 Pneumonia due to Pseudomonas Maycol id P. Heidi, DO 05/03/2021 J90 Pleural effusion, not elsewhere classified Shukri Gordon, DO 05/03/2021 J44.9 Chronic obstructive pulmonary di sease, unspecified Shukri Gordon, DO 05/02/2021 J15.1 Pneumonia due to Pseudomonas Maycol id P. Rechlin, DO 05/02/2021 J90 Pleural effusion, not elsewhere classified Shukri Gordon, DO 05/02/2021 J44.9 Chronic obstructive pulmonary di sease, unspecified Shukri Gordon, DO 05/01/2021 J15.1 Pneumonia due to Pseudomonas Maycol id P. Rechlin, DO 05/01/2021 J44.9 Chronic obstructive pulmonary di [...] D50.9 Iron deficiency anemia, unspecif ied Kiel AlstonLISA jonesC 03/12/2021 R19.5 Other fecal abnormalities Laura Newton LISA ArthurC 03/12/2021 Z86.010 Personal history of colonic poly ps Kiel Dawkinsantione RPA-C 03/12/2021 Z80.0 Family history of malignant neop lasm of digestive organs Kiel MaganaDEREK valencia-C 03/08/2021 J44.9 Chronic obstructive pulmonary di sease, unspecified Bentley Thacker MD 03/08/2021 J96.11 Chronic respiratory failure with hypoxia Bentley Thacker MD 03/08/2021 Z99.81 Dependence on supplemental oxyge n Bentley Thacker MD 03/08/2021 G47.33 Obstructive sleep apnea (adult) (pediatric) Bentley Thacker MD 03/08/2021 Z79.52 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 syste clint steroids Bentley Thacker MD 03/08/2021 Z79.899 Other penitentiary (current) drug t herapy Bentley Thacker MD 03/08/2021 J30.9 Allergic rhinitis, unspecified L jack Thacker MD Plan of Treatment 07/03/2021 - Bentley Thacker MD* R91.8 Other nonspecific abnormal finding of lung field * J47.9 Bronchiectasis, uncomplicated * J96.11 Chronic respiratory failure with hypoxia * Z99.81 Dependence on supplemental oxygen * G47.33 Obstructive sleep apnea (adult) (pediatric) * J44.9 Chronic obstructive pulmonary disease, unspecified * Z79.52 penitentiary (current) use of systemic steroids * * New Xrays:* CT Chest W/O Contrast, Ordered: 07/03/21 * Follow up:* Late Sept/ early Oct with CT chest Functional Status Description No Information Available Mental Status Description No Information Available Referrals Description No Information Available
--- OUTSIDE RECORDS SUMMARY | 2021-09-10 11:51 | CCD | Continuity of Care Document ---
Author Author Shukri THACKER MD Organization Unknown Address [address] [place] [address] Phone [phone] Care Team Providers Care Make Up Girl Name Role Phone Arron Deras MD @ [facility] AUTM Trnio Betancourt M.D. AUTM [phone] Bentley Thacker M.D. AUTM [phone] Problems Active Problems Provider Date Essential hypertension [...] Matti Onset: 06/03/2017 Chronic obstructive lung disease aNncy Carbone A.N.PMatti Onset: 06/03/2017 Ex-smoker Bentley Thacker [...] po q6h prn for pain Unknown Nystatin 244170Yasm/ML Suspension Use 5ML By Mouth Swish And [...] CPT Code Status Date Vaccine Lot # 23980 Given 07/29/2016 Influenza Virus Split 3 Yrs And Above For Intramuscular Use 14776 Given 08/08/2015 Influenza Virus Split 3 Yrs And Above For Intramuscular Use 75269 Given 07/13/2015 Pneumococcal PPSV23 05112 Given 12/27/2014 Prevnar 13 72120 Given 08/18/2014 Influenza Virus Split 3 Yrs And Above For Intramuscular Use Q2036 Given 08/04/2013 Influenza Vaccine 3 Years Of Age Or Older (Flulaval) Q2036 Given 07/14/2012 Influenza Vaccine 3 Years Of Age Or Older (Flulaval) 09170 Given 07/14/2012 Pneumococcal PPSV23 Q2036 Given 07/13/2012 Influenza Vaccine 3 Years Of Age Or Older (Flulaval) 30057 Given 08/07/2011 Influenza Virus Split 3 Yrs And Above For Intramuscular Use 14943 Given 09/26/2010 Pneumococcal PPSV23 12698 Given 07/24/2010 Influenza Virus Split 3 Yrs And Above For Intramuscular Use 97202 Given 09/29/2009 Influenza Vaccine 31324 Given 09/19/2008 Influenza Vaccine 21027 Given 08/25/2003 Pneumococcal PPSV23 60455 Given Unknown Pneumococcal PPSV23 70219 Given Unknown Prevnar 13 Vital Signs Date Vital Result Comment 07/03/2021 1:40pm BP Systolic 86 mmHg BP Diastolic 58 mmHg Heart Rate 74 /min O2 % BldC Oximetry 942 % Height 72 inches 6'0" Weight 127.00 lb BMI (Body Mass Index) 17.2 kg/m2 [place] Body Weight 178 lb Weight 57.607 kg BSA (Body Surface Area) 1.76 m2 05/21/2021 2:56pm BP Systolic 100 mmHg BP Diastolic 60 mmHg Heart Rate 86 /min O2 % BldC Oximetry 932 % Height 72 inches 6'0" [place] Body Weight 178 lb Results Test Acquired Date Facility Test Result H/L Range Note Complete Blood Count 03/13/2021 [facility] Main Lab [address] [place] [address] [phone] White Blood Count 13.3 10 High 4.0-10.0 [...] 0-0 1 Total Iron Binding Capacit 03/13/2021 [facility] Main Lab [address] [place], [place] [id number] [phone] Iron (Fe) 54 g/dL Low 65-175 Total Iron Binding Capacity 285 g/dL Normal 250-450 Percent Saturation 18.9 % Low 19.7-50.0 2 Comprehensive Metabolic Profil 03/13/2021 [facility] Main Lab [address] [place], [place] [address] [phone] Glucose, Fasting 96 mg/dL Normal 70-100 Blood [...] Little GFR Left ESRD GFR <15 on GROCERY CHECKER 4 03/15/21 (Thr March 15) 09:17 A M KIEL CHARLEBOIS No significant abnormalities. Procedures Date Code Description Status 05/21/2021 18603 Office/Outpatient Established Mo d MDM 30-39 Min Completed 05/04/2021 42647 Hospital Subsequent Care Level 2 Completed 05/03/2021 75113 Hospital Subsequent Care Level 2 Completed 05/02/2021 40280 Hospital Subsequent Care Level 2 Completed 05/01/2021 48790 Hospital Subsequent Care Level 2 Completed 04/29/2021 98881 Hospital Initial Care Level 1 Co mpleted 03/12/2021 39196 Office/Outpatient New Low MDM 30 -44 Minutes Completed 03/08/2021 39306 Office/Outpatient Established Mo d MDM 30-39 Min Completed Medical Devices Description No Information Available Encounters Type Date Location Provider Dx Diagnosis Office Visit 05/21/2021 2:30p [facility] Sheng Thacker MD J96.11 Chronic respiratory failure with hypoxia 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 G47.33 Obstructive sleep apnea (maraynn lt) (pediatric) Z79.52 correction (current) use of s ystemic steroids Z79.899 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 J90 Pleural effusion, not elsewhere classifi ed J44.9 Chronic obstructive pulmonar y disease, unspecified E87.6 Hypokalemia Office Visit 05/03/2021 1:23a [facility] D avid P. Rechlin, DO J15.1 Pneumonia due to Pseudomonas J90 Pleural effusion, not elsewh ere classified J44.9 Chronic obstructive pulmonar y disease, unspecified Office Visit 05/02/2021 1:23a [facility] D avid P. Rechlin, DO J15.1 Pneumonia due to Pseudomonas J90 Pleural effusion, not elsewh ere classified J44.9 Chronic obstructive pulmonar y disease, unspecified Office Visit 05/01/2021 1:23a [facility] D avid P. Rechlin, DO J15.1 Pneumonia due to Pseudomonas J44.9 Chronic obstructive pulmonar y disease, unspecified J90 Pleural effusion, not elsewh ere classified Office Visit 04/29/2021 1:23a [facility] Sharda Green M.D. J15.1 Pneumonia due to Pseudomonas J44.9 Chronic obstructive pulmonar y disease, unspecified J96.11 Chronic respiratory failure with hypoxia J90 Pleural effusion, not elsewh ere classified Office Visit 03/12/2021 3:00p [facility] Pra padminiabdulkadir Arthur, RPA-C D50.9 Iron deficiency anemia, unsp ecified R19.5 Other fecal abnormalities Z86.010 Personal history of colonic polyps Z80.0 Family history of malignant neoplasm of digestive organs Office Visit 03/08/2021 1:45p [facility] Lawrenc vy Thacker MD J44.9 Chronic obstructive pulmonary disease, u nspecified J96.11 Chronic respiratory failure with hypoxia 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 G47.33 Obstructive sleep apnea (maryann lt) (pediatric) Z79.52 terminal makeup operator (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) use of s ystemic steroids Z79.899 Other terminal makeup operator (current) dr josefina gregory J30.9 Allergic rhinitis, [...] sease, unspecified Bentley Thacker MD 07/03/2021 Z79.52 terminal makeup operator (current) use of syste clint steroids Bentley Thacker MD 05/21/2021 J96.11 Chronic respiratory failure with hypoxia Bentley Thacker MD 05/21/2021 Z99.81 Dependence on supplemental oxyge n Bentley Thacker MD 05/21/2021 G47.33 Obstructive sleep apnea (adult) (pediatric) Bentley Thacker MD 05/21/2021 Z79.52 correction (current) use of syste clint steroids Bentley Thacker MD 05/21/2021 Z79.899 Other snf (current) drug t herapy Bentley Thacker MD [...] (adult) (pediatric) Bentley Thacker MD 03/08/2021 Z79.52 terminal makeup operator (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
--- OUTSIDE RECORDS SUMMARY | 2021-09-10 11:51 | CCD | Continuity of Care Document ---
Author Author Shukri THACKER MD Organization Unknown Address [address] [place] [address] Phone [phone] Care Team Providers Care Caretaker Name Role Phone Arron Deras MD @ [facility] AUTM [phone] Trino Betancourt M.D. AUTM Bentley Thacker M.D. AUTM [phone] Problems Active Problems Provider Date Essential hypertension [...] po q6h prn for pain Unknown Nystatin 278943Ulob/ML Suspension Use 5ML By Mouth Swish And [...] CPT Code Status Date Vaccine Lot # 16401 Given 07/29/2016 Influenza Virus Split 3 Yrs And Above For Intramuscular Use 89536 Given 08/08/2015 Influenza Virus Split 3 Yrs And Above For Intramuscular Use 71087 Given 07/13/2015 Pneumococcal PPSV23 97018 Given 12/27/2014 Prevnar 13 06911 Given 08/18/2014 Influenza Virus Split 3 Yrs And Above For Intramuscular Use Q2036 Given 08/04/2013 Influenza Vaccine 3 Years Of Age Or Older (Flulaval) Q2036 Given 07/14/2012 Influenza Vaccine 3 Years Of Age Or Older (Flulaval) 62598 Given 07/14/2012 Pneumococcal PPSV23 Q2036 Given 07/13/2012 Influenza Vaccine 3 Years Of Age Or Older (Flulaval) 70435 Given 08/07/2011 Influenza Virus Split 3 Yrs And Above For Intramuscular Use 43375 Given 09/26/2010 Pneumococcal PPSV23 88821 Given 07/24/2010 Influenza Virus Split 3 Yrs And Above For Intramuscular Use 27646 Given 09/29/2009 Influenza Vaccine 54408 Given 09/19/2008 Influenza Vaccine 03896 Given 08/25/2003 Pneumococcal PPSV23 76819 Given Unknown Pneumococcal PPSV23 89913 Given Unknown Prevnar 13 Vital Signs Date Vital Result Comment 07/03/2021 1:40pm BP Systolic 86 mmHg BP Diastolic 58 mmHg Heart Rate 74 /min O2 % BldC Oximetry 942 % Height 72 inches 6'0" Weight 127.00 lb BMI (Body Mass Index) 17.2 kg/m2 [place] Body Weight 178 lb Weight 57.607 kg BSA (Body Surface Area) 1.76 m2 05/21/2021 2:56pm BP Systolic 100 mmHg BP Diastolic 60 mmHg Heart Rate 86 /min O2 % BldC Oximetry 932 % Height 72 inches 6'0" [place] Body Weight 178 lb Results Test Acquired Date Facility Test Result H/L Range Note Complete Blood Count 03/13/2021 [facility] Main Lab [address] [place] [address] [phone] White Blood Count 13.3 10 High 4.0-10.0 [...] 0-0 1 Total Iron Binding Capacit 03/13/2021 [facility] Main Lab [address] [place], [place] [id number] [phone] Iron (Fe) 54 g/dL Low 65-175 Total Iron Binding Capacity 285 g/dL Normal 250-450 Percent Saturation 18.9 % Low 19.7-50.0 2 Comprehensive Metabolic Profil 03/13/2021 [facility] Main Lab [address] [place], [place] [id number] [phone] Glucose, Fasting 96 mg/dL Normal 70-100 Blood [...] Little GFR Left ESRD GFR <15 on RUNNING INSTRUCTOR 4 03/15/21 (Thr March 15) 09:17 A M KIEL CHARLEBOIS No significant abnormalities. Procedures Date Code Description Status 07/03/2021 21824 Office/Outpatient Established Mo d MDM 30-39 Min Completed 05/21/2021 17550 Office/Outpatient Established Mo d MDM 30-39 Min Completed 05/04/2021 92442 Hospital Subsequent Care Level 2 Completed 05/03/2021 10728 Hospital Subsequent Care Level 2 Completed 05/02/2021 10517 Hospital Subsequent Care Level 2 Completed 05/01/2021 77563 Hospital Subsequent Care Level 2 Completed 04/29/2021 65860 Hospital Initial Care Level 1 Co mpleted 03/12/2021 23341 Office/Outpatient New Low MDM 30 -44 Minutes Completed 03/08/2021 70934 Office/Outpatient Established Mo d MDM 30-39 Min Completed Medical Devices Description No Information Available Encounters Type Date Location Provider Dx Diagnosis Office Visit 07/03/2021 1:30p [facility] Sheng Thacker MD R91.8 Other nonspecific abnormal finding of [facility] J96.11 Chronic respiratory failure with hypoxia 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 G47.33 Obstructive sleep apnea (maryann lt) (pediatric) J44.9 Chronic obstructive pulmonar y disease, unspecified Z79.52 education and training manager (current) use of s ystemic steroids Office Visit 05/21/2021 2:30p [facility] Sheng Thacker MD J96.11 Chronic respiratory failure with hypoxia 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 G47.33 Obstructive sleep apnea (maryann lt) (pediatric) Z79.52 education and training manager (current) use of s ystemic steroids Z79.899 Other correction (current) dr rocha therapy J47.9 Bronchiectasis, uncomplicate d Office Visit 05/04/2021 1:23a [facility] Hipolito Broussard ars, D.O. J90 Pleural effusion, not elsewhere classifi ed J44.9 Chronic obstructive pulmonar y disease, unspecified E87.6 Hypokalemia Office Visit 05/03/2021 1:23a [facility] D avid P. Rechradha, DO J15.1 Pneumonia due to Pseudomonas J90 Pleural effusion, not elsewh ere classified J44.9 Chronic obstructive pulmonar y disease, unspecified Office Visit 05/02/2021 1:23a [facility] D avid P. Rechradha, DO J15.1 Pneumonia due to Pseudomonas J90 Pleural effusion, not elsewh ere classified J44.9 Chronic obstructive pulmonar y disease, unspecified Office Visit 05/01/2021 1:23a [facility] Evelia Grodon DO J15.1 Pneumonia due to Pseudomonas J44.9 [...] Obstructive sleep apnea (maryann lt) (pediatric) Z79.52 residential (current) use of s ystemic steroids Z79.899 Other correction (current) dr josefina gregory J30.9 Allergic rhinitis, [...] sease, unspecified Bentley Thacker MD 07/03/2021 Z79.52 education and training manager (current) use of syste clint steroids Bentley Thacker MD 05/21/2021 J96.11 Chronic respiratory failure with hypoxia Bentley Thacker MD 05/21/2021 Z99.81 Dependence on supplemental oxyge n Bentley Thacker MD 05/21/2021 G47.33 Obstructive sleep apnea (adult) (pediatric) Bentley Thacker MD 05/21/2021 Z79.52 residential (current) use of syste clint steroids Bentley Thacker MD 05/21/2021 Z79.899 Other reading professor (current) drug t herapy Bentley Thacker MD [...] Pneumonia due to Pseudomonas Maycol id P. Bellelin, DO 05/02/2021 J90 Pleural effusion, not elsewhere classified Shukri Gordon, DO 05/02/2021 J44.9 Chronic obstructive pulmonary di sease, unspecified Shukri Gordon, DO 05/01/2021 J15.1 Pneumonia due to Pseudomonas Maycol id P. Heidi, DO 05/01/2021 J44.9 Chronic obstructive pulmonary di [...] D50.9 Iron deficiency anemia, unspecif ied Kiel A Charlebois, [facility] 03/12/2021 R19.5 Other fecal abnormalities Laura Arthur, [facility] 03/12/2021 Z86.010 Personal history of colonic poly ps Kiel Arthur, [facility] 03/12/2021 Z80.0 Family history of malignant neop lasm of digestive organs Kiel Arthur, [facility] 03/08/2021 J44.9 Chronic obstructive pulmonary di sease, unspecified Bentley Thacker MD 03/08/2021 J96.11 Chronic respiratory failure with hypoxia Bentley Thacker MD 03/08/2021 Z99.81 Dependence on supplemental oxyge n Bentley Thacker MD 03/08/2021 G47.33 Obstructive sleep apnea (adult) (pediatric) Bentley Thacker MD 03/08/2021 Z79.52 education and training manager (current) use of syste clint steroids Bentley Thacker MD 03/08/2021 Z79.899 Other correction (current) drug t herapy Bentley Thacker MD 03/08/2021 J30.9 Allergic rhinitis, unspecified L jack Thacker MD Plan of Treatment 07/03/2021 - Bentley Thacker MD* R91.8 Other nonspecific abnormal finding of lung field * J96.11 Chronic respiratory failure with hypoxia * Z99.81 Dependence on supplemental oxygen * G47.33 Obstructive sleep apnea (adult) (pediatric) * J44.9 Chronic obstructive pulmonary disease, unspecified * Z79.52 residential (current) use of systemic steroids * * New Xrays:* CT Chest W/O Contrast, Ordered: 07/03/21 * Comments:* ~ At this point, my [...]
--- OUTSIDE RECORDS SUMMARY | 2021-09-10 11:51 | CCD | Continuity of Care Document ---
Author Author Shukri HERNÁNDEZ DO Organization Unknown Address [address] [facility] [address] [place] [address] Phone [phone] Care Team Providers Care Pottery Decoration Designer Name Role Phone Bentley Thacker MD AUTM [phone] Arron Hernández JR, MD AUTM Unavailable [facility] AUTM [phone] Trino Betancourt MD AUTM Raciel Gill MD AUTM [phone] Morales Jade MD AUTM [phone] Bhavin Stanton MD AUTM [phone] Guero Norman MD AUTM [phone] [facility] AUTM [phone] [facility] AUTM [phone] Problems Active Problems Provider Date Benign essential [...] daily 60tabs Arron Hernández MD 12/26/2020 Nystatin 817315Ggsm/ML Suspension swish and spit 5ml as needed [...] Of Flu Vaccine Inj ection Kenroy Weston, [facility] 08/08/2015 Administration Of Flu Vaccine Inj ection Luciano Deleon D.O. 08/21 Administration Of Flu Vaccine Inj ection Arron Hernández MD 08/27/2004 Administration Of Flu Vaccine Inj ection Arron Hernández MD 08/16/2003 Administration Of Flu Vaccine Inj ection Arron Hernández MD 10/01/2002 Immunizations CPT Code Status Date Vaccine Lot # U-Flu Given 07/20/2020 Influenza,Unspecified U-Flu Given 07/19/2019 Influenza,Unspecified 38179 Given 07/17/2018 Shingrix Zoster Vaccine (HZV), Recombinant, Subunit, Adjuvanted U-Flu Given 07/08/2018 Influenza,Unspecified 72319 Given 02/24/2018 Shingrix 97951 Given 10/21/2016 Pneumovax 23 [id number] U-PneuC Given 10/14/2015 Prevnar 13 Q2037 Given 08/08/2015 Fluvirin Virus Vaccine 38642 01 07543 Given 03/31/2008 Zoster Vaccine 45879 Given 08/18/2007 Influenza Virus Vaccine 08651 Given 10/09/2006 Influenza Virus Vaccine 93001 Given 09/26/2006 Pneumovax 23 36976 Given 08/21/2005 Influenza Virus Vaccine 50827 Given 08/27/2004 Influenza Virus Vaccine 31825 Given 08/16/2003 Influenza Virus Vaccine 37271 Given 10/01/2002 Influenza Virus Vaccine 72580 Given 05/25/1998 Tetanus Toxoid 96892 Refused 08/19/2018 Influenza Virus Vaccine, Quadrivalent (Cciiv4), [...] H/L Range Note Ua Dipstick Only 07/09/2021 [facility] Mortgage Loan Interviewer: Dr Arorn Hernández [place], [place] [id number] [phone] Urine Color YELLOW Yellow Urine Appearance CLEAR Clear Urine PH 6.5 units 5.0 - 9.0 Urine Specific [place] 1.015 1.005 - 1.030 Urine Leukocytes NEGATIVE Negative Urine Blood NEGATIVE Negative Urine Protein NEGATIVE Negative -Trace Urine Glucose NEGATIVE mg/dL Negative Urine Nitrite NEGATIVE Negative Urine Ketone NEGATIVE mg/dL Negative Urine Bilirubin NEGATIVE Negative Urine Urobilinogen 0.2 mg/dL 0.2 - 1.0 Manual Differential 07/06/2021 [facility] nter [address] [place] [address] [phone] Neutrophils 88 % High 28-66 Lymphocytes 5 % Low 16-44 Monocytes 7 % High 0-5 Platelet Estimate NORMAL Normal Normal Complete Blood Count 07/06/2021 [facility] Mortgage Loan Interviewer: Dr Arron Hernández [place] [address] [phone] WBC 18.1 x10*3/UL High 4.1 - 10.9 [...] 2.0 - 7.8 Comprehensive Chem Profile 07/06/2021 [facility] Mortgage Loan Interviewer: Dr Arron Hernández [place] [address] [phone] Glucose 107 mg/dL High 74 - 99 [...] 3 Influenza A/B RSV Covid Amp 06/20/2021 [place] [address] [phone] Influenza A Amplification NEGATIVE Normal Negati ve 4 Influenza B Amplification NEGATIVE Normal Negative 5 RSV Amplification NEGATIVE Normal Negative 6 Sars Covid-19 Amplification NEGATIVE Normal Negative 7 Laboratory test finding 06/20/2021 [place] [address] [phone] NT-Pro BNP 698 pg/mL High <450 Thyroid Stimulating Hormone 0.820 uIU/ML Normal 0.358-3.740 Liver Profile 06/20/2021 [facility] nter [address] [place] [address] [phone] Ast/Sgot 115 U/L High 7-37 Alt/SGPT 244 U/L High 12-78 Alkaline Phosphatase 143 U/L High 45-117 Bilirubin,Total 0.3 mg/dL Normal 0.2-1.0 Bilirubin,Direct 0.1 mg/dL Normal 0.0-0.2 Total Protein 6.5 GM/DL Normal 6.4-8.2 Albumin 2.4 GM/DL Low 3.2-5.2 Albumin/Globulin Ratio 0.6 Normal Laboratory test finding 06/20/[address] [address] [phone] Lactic Acid Sepsis Protocol 1.1 mmol/L Normal 0.4- 2.0 8 Arterial Blood Gas 06/20/2021 [facility] nter [address] [place] [address] [phone] ABG pH (Arterial) 7.471 units High 7.350-7.450 ABG Partial Pressure Co2 38.5 mmHg Normal 35.0-45.0 ABG Partial Pressure O2 107.9 mmHg High 75.0-100.0 ABG Total Co2 28.6 mEq/L Normal 23.0-31.0 ABG Hco3 27.5 mEq/L High 22.0-26.0 ABG Base Excess 3.6 High -2.0-2.0 ABG Standard Hco3 27.7 mEq/L High 22.0-26.0 ABG O2 Saturation 98.3 % Normal 95.0-99.0 Istat Chem8+ Panel 06/20/2021 [facility] nter [address] [place], [place] [address] [phone] iSTAT HCT 33.0 % Low 38.0-51.0 iSTAT Glucose 141 mg/dL High 70-105 iSTAT Sodium 136 mEq/L Normal 136-145 iSTAT Potassium 4.3 mEq/L Normal 3.5-5.1 iSTAT CA++ 4.7 mg/dL Normal 4.5-5.3 iSTAT Chloride 99 mEq/L Normal 98-109 iSTAT Co2 24.0 MM/L Normal 23.0-27.0 iSTAT BUN 28 mg/dL High 8-26 iSTAT Creatinine 0.4 mg/dL Low 0.6-1.3 CBC With Differential 06/20/2021 [facility] [address] [place], [place] [address] [phone] White Blood Count 8.8 10 Normal 4.0-10.0 [...] 36.0-66.0 Lymph % 6.3 % Low 24.0-44.0 [place] % 5.3 % Normal 2.0-8.0 Eos % 0.0 % Normal 0.0-3.0 Baso % 0.3 % Normal 0.0-1.0 Immature Granulocyte % 0.8 % Normal 0-3.0 Nucleated Red Blood Cell % 0.0 % Normal 0-0 Neutrophils # 7.7 10 Normal 1.5-8.5 Lymph # 0.6 10 Low 1.5-5.0 [place] # 0.5 10 Normal 0.0-0.8 Eos # 0.0 10 Normal 0.0-0.5 Baso # 0.0 10 Normal 0.0-0.2 Complete Blood Count 06/19/2021 [facility] Mortgage Loan Interviewer: [place] [address] [phone] WBC 10.3 x10*3/UL 4.1 - 10.9 RBC [...] 2.0 - 7.8 Comprehensive Chem Profile 06/19/2021 [facility] Mortgage Loan Interviewer: [place] [address] [phone] Glucose 149 mg/dL High 74 - 99 [...] mL/min >60 11 Complete Blood Count 05/09/2021 [facility] Mortgage Loan Interviewer: Dr Arron Hernández [place] [address] [phone] WBC 16.6 x10*3/UL High 4.1 - 10.9 [...] 2.0 - 7.8 Basic Metabolic Panel 05/09/2021 [facility] Mortgage Loan Interviewer: Dr Arron Hernández [place] [address] [phone] Glucose 87 mg/dL 74 - 99 13 [...] mL/min >60 15 CBC With Differential 04/28/[address] [address] [phone] White Blood Count 21.6 10 High 4.0-10.0 [...] % 0.0 % Normal 0-0 Differential 04/28/2021 [facility] nter [address] [place] [address] [phone] Neutrophils 62 % Normal 28-66 Bands 30 % High < 11 Lymphocytes 1 % Low 16-44 Monocytes 5 % Normal 0-5 Eosinophils 2 % Normal 0-3 Anisocytosis 1+ Normal Microcytosis 2+ Normal Laboratory test finding 04/28/[address] [address] [phone] Platelet Estimate NORMAL Normal Normal Respiratory Panel 04/28/2021 [facility] n[facility] [address] [place] [address] [phone] Respiratory Panel This respiratory <SEE NOTE> 16 Venous Blood Gas 04/28/2021 [facility] nter [address] [place] [address] [phone] Venous PH 7.424 units Normal 7.330-7.430 Venous Partial Pressure Co2 33.9 mmHg Low 38.0-50.0 Venous Partial Pressure O2 65.4 mmHg High 30.0-50.0 Venous Total Co2 22.7 mEq/L Low 24.0-28.0 Venous Hco3 21.7 mEq/L Low 23.0-27.0 Venous Base Excess -2.0 Normal -2.0-2.0 Venous Standard Hco3 22.7 mEq/L Normal Venous O2 Saturation 92.9 % High 60.0-80.0 Laboratory test finding 04/28/[address] [address] [phone] Lactic Acid Sepsis Protocol 1.6 mmol/L Normal 0.4- 2.0 17 Cardiac Marker Panel 04/28/2021 [facility] enter [address] [place] [address] [phone] CPK Creatine Phosphokinase 143 U/L Normal 39-30 8 CK-MB Value Mass 3.2 NG/ML Normal <3.6 MB/CK Relative Index 2.24 Normal < Or =4 18 Troponin I 0.07 NG/ML Normal < 0.10 19 Liver Profile 04/28/2021 [facility] nter [address] [place] [address] [phone] Ast/Sgot 33 U/L Normal 7-37 Alt/SGPT 56 U/L Normal 12-78 Alkaline Phosphatase 78 U/L Normal 45-117 Bilirubin,Total 0.5 mg/dL Normal 0.2-1.0 Bilirubin,Direct 0.2 mg/dL Normal 0.0-0.2 Total Protein 6.2 GM/DL Low 6.4-8.2 Albumin 2.2 GM/DL Low 3.2-5.2 Albumin/Globulin Ratio 0.6 Normal Basic Metabolic Profile 04/28/[address] [address] [phone] Glucose, Fasting 125 mg/dL High 70-100 Blood [...] mg/dL Low 8.8-10.2 Laboratory test finding 04/28/[address] [address] [phone] NT-Pro BNP 2940 pg/mL High <450 Thyroxine (T4) 6.4 g/dL Normal 4.5-12.0 Thyroid Stimulating Hormone 1.020 uIU/ML Normal 0.358-3.740 Coronavirus 2019 Nasopharygeal 04/05/[address] [address] [phone] Coronavirus 2019 Nasopharygeal NOTE: The COVID- <SEE N OTE> 21 Complete Blood Count 01/12/2021 [facility] Mortgage Loan Interviewer: Dr Arron Hernández [place] [address] [phone] WBC 11.9 x10*3/UL High 4.1 - 10.9 [...] - 7.8 Total Iron Binding Capacit 01/12/2021 [place] [address] [phone] Iron (Fe) 92 g/dL Normal 65-175 Total Iron Binding Capacity 318 g/dL Normal 250-450 Percent Saturation 28.9 % Normal 19.7-50.0 1 NOTE: RESULT VERIFIED .MANUAL DIFFERENTIAL SENT TO [facility] FOR [facility] IFICATION. 2 100-125 mg/dL PRE-DIABET ES/FASTING >126 mg/dL DIABETES/FASTING 3 CHRONIC KIDNEY DISEASE STAGI NG PER NKF STAGE I & II GFR >= 60 NORMAL TO MILDLY DECREASED STAGE III GFR 30-59 MODERATELY DECREASED STAGE IV GFR 15-29 SEVERELY DECREASED STAGE V GFR <15 VERY LITTLE GFR LEFT ESRD GFR <15 ON DIETARY AIDE 4 Negative results do not prec lude [...] pathogens. DISCLAIMER: Testing was performed using the [employer] SARS-CoV-2 test. This test was developed and its performance characteristics determined by [employer]. This test has not been FDA cleared [...] LITTLE GFR LEFT ESRD GFR <15 ON DIETARY AIDE 12 NOTE: RESULT VERIFIED. 13 100-125 mg/dL PRE-DIABET ES/FASTING >126 mg/dL DIABETES/FASTING 14 NOTE: RESULT VERIFIED. 15 CHRONIC KIDNEY DISEASE STAGI NG PER NKF STAGE I & II GFR >= 60 NORMAL TO MILDLY DECREASED STAGE III GFR 30-59 MODERATELY DECREASED STAGE IV GFR 15-29 SEVERELY DECREASED STAGE V GFR <15 VERY LITTLE GFR LEFT ESRD GFR <15 ON DIETARY AIDE 16 This respiratory PCR panel d etects [...] 19 Troponin I Reference Interva l for [employer] LOCI: 99th Percentile= 0.00-0.045 ng/ml Risk Stratification: [...] Little GFR Left ESRD GFR <15 on DIETARY AIDE 21 NOTE: The COVID-19 assay is under Emergency Use Authorization (EUA) by the U.S. Food and Drug Administration. [facility] is designated as a high complexity laboratory by the Clinical Laboratory Improvement Amendments of 1988(CLIA) and is qualified to perform this test. ASSAY INFORMATION: Real Time RT-PCR or TMA. Both RT-PCR and TMA are molecular testing modalities and are recommended by the CDC for passenger travel. Not Detected 22 NOTE: cbc verified Procedures Date Code Description Status 06/19/2021 12655 Office/Outpatient Established Mo d MDM 30-39 Min Completed 05/23/2021 34272 Office/Outpatient Established Mo d MDM 30-39 Min Completed 05/09/2021 13084 [facility] SRV W/I 7 Days Of DC, C omm W/I 2 Dys Med Rec Completed 03/22/2016 [id number] Colonoscopy Completed 02/03/2015 [id number] Colonoscopy Completed 01/06/2014 [id number] Colonoscopy Completed 05/24/2011 [id number] Colonoscopy Completed 04/21/2007 [id number] Colonoscopy Completed Medical Devices Description No Information Available Encounters Type Date Location Provider Dx Diagnosis Office Visit [facility] J44.9 Chronic obstructive pulmonary disease, u nspecified J47.9 Bronchiectasis, uncomplicate d J96.11 Chronic respiratory failure with hypoxia Z79.52 intermediate card tender (current) use of s ystemic steroids G47.33 Obstructive sleep apnea (maryann lt) (pediatric) J18.1 Lobar pneumonia, unspecified organism I95.1 Orthostatic hypotension D64.9 Anemia, unspecified Office Visit 05/23/2021 10:40a [facility] MD J44.9 Chronic obstructive pulmonary disease, u nspecified J96.11 Chronic respiratory failure with hypoxia D64.9 Anemia, unspecified G47.33 Obstructive sleep apnea (maryann lt) (pediatric) Z79.52 intermediate card tender (current) use of s ystemic steroids E78.00 Pure hypercholesterolemia, u nspecified I95.1 Orthostatic hypotension Office Visit 05/09/2021 9:40a [facility] J18.1 Lobar pneumonia, unspecified organism I10 Essential (primary) hyperten zac J44.9 Chronic obstructive pulmonar y disease, unspecified G47.33 Obstructive sleep apnea (maryann lt) (pediatric) D64.9 Anemia, unspecified J96.11 Chronic respiratory failure with hypoxia M48.061 Spinal stenosis, lumbar rebecca on without neurogenic douglas Z79.52 correction (current) use of s ystemic steroids Assessments [...] with hypoxia Arron Hernández MD 06/19/2021 Z79.52 intermediate card tender (current) use of syste clint steroids Arron [...] (adult) (pediatric) Arron Hernández MD 05/23/2021 Z79.52 intermediate card tender (current) use of syste clint steroids Arron Hernández MD 05/23/2021 E78.00 Pure hypercholesterolemia, unspe cified Arron Hernández MD 05/23/2021 I95.1 Orthostatic hypotension Arron Hernández MD 05/09/2021 J18.1 Lobar pneumonia, unspecified org anism HINA Penn JR 05/09/2021 I10 Essential (primary) hypertension IHNA Penn JR 05/09/2021 J44.9 Chronic obstructive pulmonary di sease, unspecified HINA Penn JR 05/09/2021 G47.33 Obstructive sleep apnea (adult) (pediatric) HINA Penn JR 05/09/2021 D64.9 Anemia, unspecified HINA Quiroz JR 05/09/2021 J96.11 Chronic respiratory failure with hypoxia HINA Penn JR 05/09/2021 M48.061 Spinal stenosis, lum bar region without neurogenic claudication HINA Penn JR 05/09/2021 Z79.52 intermediate card tender (current) use of syste clint steroids HINA Penn JR 01/12/2021 D64.9 Anemia, unspecified Arron lao MD 01/12/2021 D64.9 Anemia, unspecified Lab Schedule Plan of Treatment Future Appointment(s):* 08/23/2021 11:00 am - Arron Hernández MD at [facility] 06/19/2021 - Arron Hernández MD* J44.9 Chronic obstructive pulmonary disease, unspecified * J47.9 Bronchiectasis, uncomplicated * J96.11 Chronic respiratory failure with hypoxia * Z79.52 correction (current) use of systemic steroids * G47.33 [...]
--- OUTSIDE RECORDS SUMMARY | 2021-09-10 11:51 | CCD | Continuity of Care Document ---
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 AUTM Bentley Thacker M.D. AUTM [phone] Problems Active Problems Provider Date Essential hypertension [...] bronchitis Bentley Thacker MD Onset: 03/04/2012 Underweight Benltey Thacker MD Onset: 08/26/2011 Obstructive sleep apnea [...] po q6h prn for pain Unknown Nystatin 145926Irvh/ML Suspension Use 5ML By Mouth Swish And [...] CPT Code Status Date Vaccine Lot # 49524 Given 07/29/2016 Influenza Virus Split 3 Yrs And Above For Intramuscular Use 89629 Given 08/08/2015 Influenza Virus Split 3 Yrs And Above For Intramuscular Use 29544 Given 07/13/2015 Pneumococcal PPSV23 84876 Given 12/27/2014 Prevnar 13 78201 Given 08/18/2014 Influenza Virus Split 3 Yrs And Above For Intramuscular Use Q2036 Given 08/04/2013 Influenza Vaccine 3 Years Of Age Or Older (Flulaval) Q2036 Given 07/14/2012 Influenza Vaccine 3 Years Of Age Or Older (Flulaval) 88162 Given 07/14/2012 Pneumococcal PPSV23 Q2036 Given 07/13/2012 Influenza Vaccine 3 Years Of Age Or Older (Flulaval) 56628 Given 08/07/2011 Influenza Virus Split 3 Yrs And Above For Intramuscular Use 29678 Given 09/26/2010 Pneumococcal PPSV23 34325 Given 07/24/2010 Influenza Virus Split 3 Yrs And Above For Intramuscular Use 78142 Given 09/29/2009 Influenza Vaccine 01832 Given 09/19/2008 Influenza Vaccine 15151 Given 08/25/2003 Pneumococcal PPSV23 56288 Given Unknown Pneumococcal PPSV23 67245 Given Unknown Prevnar 13 Vital Signs Date Vital Result Comment 07/03/2021 1:40pm BP Systolic 86 mmHg BP Diastolic 58 mmHg Heart Rate 74 /min O2 % BldC Oximetry 942 % Height 72 inches 6'0" Weight 127.00 lb BMI (Body Mass Index) 17.2 kg/m2 [place] Body Weight 178 lb Weight 57.607 kg BSA (Body Surface Area) 1.76 m2 05/21/2021 2:56pm BP Systolic 100 mmHg BP Diastolic 60 mmHg Heart Rate 86 /min O2 % BldC Oximetry 932 % Height 72 inches 6'0" [place] [facility] Weight 178 lb Results Test Acquired Date Facility Test Result H/L Range Note Complete Blood Count 03/13/2021 [facility] Main Lab [address] [place] [address] [phone] White Blood Count 13.3 10 High 4.0-10.0 [...] 0-0 1 Total Iron Binding Capacit 03/13/2021 [facility] Main Lab [address] [place], [place] [id number] [phone] Iron (Fe) 54 g/dL Low 65-175 Total Iron Binding Capacity 285 g/dL Normal 250-450 Percent Saturation 18.9 % Low 19.7-50.0 2 Comprehensive Metabolic Profil 03/13/2021 [facility] Main Lab [address] [place], [place] [id number] [phone] Glucose, Fasting 96 mg/dL Normal 70-100 Blood [...] Little GFR Left ESRD GFR <15 on SORT LINE WORKER 4 03/15/21 (Thr March 15) 09:17 A M KIEL CHARLEBOIS No significant abnormalities. Procedures Date Code Description Status 05/21/2021 36837 Office/Outpatient Established Mo d MDM 30-39 Min Completed 05/04/2021 59920 Hospital Subsequent Care Level 2 Completed 05/03/2021 08316 Hospital Subsequent Care Level 2 Completed 05/02/2021 43182 Hospital Subsequent Care Level 2 Completed 05/01/2021 44189 Hospital Subsequent Care Level 2 Completed 04/29/2021 11370 Hospital Initial Care Level 1 Co mpleted 03/12/2021 33002 Office/Outpatient New Low MDM 30 -44 Minutes Completed 03/08/2021 56649 Office/Outpatient Established Mo d MDM 30-39 Min Completed Medical Devices Description No Information Available Encounters Type Date Location Provider Dx Diagnosis Office Visit 05/21/2021 2:30p [facility] Sheng Thacker MD J96.11 Chronic respiratory failure with hypoxia 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 J90 Pleural effusion, not elsewhere classifi ed J44.9 Chronic obstructive pulmonar y disease, unspecified E87.6 Hypokalemia Office Visit 05/03/2021 1:23a [facility] D avid P. Rechlin, DO J15.1 Pneumonia due to Pseudomonas J90 Pleural effusion, not elsewh ere classified J44.9 Chronic obstructive pulmonar y disease, unspecified Office Visit 05/02/2021 1:23a [facility] D avid P. Rechlin, DO J15.1 Pneumonia due to Pseudomonas J90 Pleural effusion, not elsewh ere classified J44.9 Chronic obstructive pulmonar y disease, unspecified Office Visit 05/01/2021 1:23a [facility] D avid P. Rechlin, DO J15.1 Pneumonia due to Pseudomonas J44.9 Chronic obstructive pulmonar y disease, unspecified J90 Pleural effusion, not elsewh ere classified Office Visit 04/29/2021 1:23a [facility] Sharda Grene M.D. J15.1 Pneumonia due to Pseudomonas J44.9 Chronic obstructive pulmonar y disease, unspecified J96.11 Chronic respiratory failure with hypoxia J90 Pleural effusion, not elsewh ere classified Office Visit 03/12/2021 3:00p [facility] Pra padminiabdulkadir Arthur, RPA-C D50.9 Iron deficiency anemia, unsp ecified R19.5 Other fecal abnormalities Z86.010 Personal history of colonic polyps Z80.0 Family history of malignant neoplasm of digestive organs Office Visit 03/08/2021 1:45p [facility] Lawrenc vy Thacker MD J44.9 Chronic obstructive pulmonary disease, u nspecified J96.11 Chronic respiratory failure with hypoxia 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 G47.33 Obstructive sleep apnea (maryann lt) (pediatric) 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 Z79.899 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) dr josefina gregory [...] sease, unspecified Bentley Thacker MD 07/03/2021 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.52 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 clint 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 Bentley Thacker MD 05/21/2021 J96.11 Chronic respiratory failure with hypoxia Bentley Thacker MD 05/21/2021 Z99.81 Dependence on supplemental oxyge n Bentley Thacker MD 05/21/2021 G47.33 Obstructive sleep apnea (adult) (pediatric) Bentley Thacker MD 05/21/2021 Z79.52 alf (current) use of syste clint steroids Bentley Thacker MD 05/21/2021 Z79.899 Other [facility] (current) drug t herapy Bentley Thacker MD [...] (adult) (pediatric) Bentley Thacker MD 03/08/2021 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
--- OUTSIDE RECORDS SUMMARY | 2021-09-10 11:52 | CCD | Continuity of Care Document ---
Author Author Shukri Deras MD Organization Unknown Address [address] [facility] [address] [place] [address] Phone [phone] Care Team Providers Care Ssis Ssrs Developer Name Role Phone Bentley Thacker MD AUTM [phone] Arron Deras JR, MD AUTM Unavailable [facility] AUTM [phone] Trino Betancourt MD AUTM [phone] Raciel Gill MD AUTM [phone] Morales Jade MD AUTM [phone] Bhavin Stanton MD AUTM [phone] Guero Norman MD AUTM [phone] [facility]ly [facility] AUTM [phone] [facility] Hea AUTM [phone] Problems Active Problems Provider Date Benign essential [...] SIG Qnty Indications Ordering Provide r Date Diflucan 100mg Tablets 1 by mouth every day x 10 days 10tabs Arron Deras MD 06/19/2021 Mirtazapine 7.5mg Tablets take one tablet by mouth at bedtime 30tabs Arron Deras MD 2020 Bacid Capsules one by mouth qid HINA Penn JR 05/09/2021 Ferrous Sulfate 325(65Fe) mg Table ts 1 by mouth daily 60tabs Arron Deras MD 12/26/2020 Nystatin [id number]/ML Suspension swish and spit 5ml as needed twice a day for thrush 200ml Co nghia Deras MD 06/23/2020 Pulmicort 0.5mg/2ML Suspension 2 [...] day Arron Deras MD Prednisone 10mg Tablets take 2 tablet every other day, 1 on off days 30tabs Michele Mendoza 07/08/2019 Ibuprofen 400mg Tablets take one tablet by mouth q6 hours as needed JESSICA Awad 02/18 Magnesium 400mg Tablets 1 by mouth qd JESSICA Awad 02/18/2017 Percocet 5-325mg Tablets 1 by mouth every 8 hour as needed pain 90tabs M54.31 Arron Deras MD 02/09 Fluticasone Propionate 50mcg/Act Suspension 2 sprays each nostril daily 1units Arron guerrier MD 11/30/2014 Atorvastatin Calcium 10mg Tablets take 1 tablet daily 90tabs Arron Deras MD 02/18/2014 Combivent 103-18mcg/Act Aerosol 2 puffs qid 3units Arron Deras MD 02/13/2010 Levalbuterol HCL 1.25mg/3ML Nebuli zer Use 1 Vial Via Nebulizer Every 8 Hours 1350units Arron guerrier MD 10/16/2009 Symbicort 160-4.5mcg/Act Aerosol 2 puff bid 3units Unknown Azithromycin 250mg Tablets 1 by mouth every day for lungs dr thacker Unknown Solifenacin Succinate 10mg Tablets take one tablet by mouth @8am Unknown 000 Amoxicillin 2000MG 1 hr before dental procedure Unknown Midodrine HCL 10mg Tablets 1 by mouth by mouth three times a day 90tabs Arron Deras MD Amoxicillin/Clavulanate Potassium 875-125mg Tablets 1 twice a day x 14days Unknown Medications Administered in Office Medication SIG Qnty Indications Ordering Provider Date Covid-19 vaccine, Unspecified Inj ection Unknown 11/26/2020 Administration Of Flu Vaccine Inj ection JESSICA Awad 08/08/2015 Administration Of Flu Vaccine Inj ection Luciano Deleon D.O. 08/21 Administration Of Flu Vaccine Inj ection Arron Deras MD 08/27/2004 Administration Of Flu Vaccine Inj ermaion Arron Deras MD 08/16/2003 Administration Of Flu Vaccine Inj ermaion Arron Deras MD 10/01/2002 Immunizations CPT Code Status Date Vaccine Lot # U-Flu Given 07/20/2020 Influenza,Unspecified U-Flu Given 07/19/2019 Influenza,Unspecified 41078 Given 07/17/2018 Shingrix Zoster Vaccine (HZV), Recombinant, Subunit, Adjuvanted U-Flu Given 07/08/2018 Influenza,Unspecified 15793 Given 02/24/2018 Shingrix 00928 Given 10/21/2016 Pneumovax 23 [id number] U-PneuC Given 10/14/2015 Prevnar 13 [id number] Given 08/08/2015 Fluvirin Virus Vaccine 08189 01 08624 Given 03/31/2008 Zoster Vaccine 05965 Given 08/18/2007 Influenza Virus Vaccine 47405 Given 10/09/2006 Influenza Virus Vaccine 20415 Given 09/26/2006 Pneumovax 23 [id number] Given 08/21/2005 Influenza Virus Vaccine 50502 Given 08/27/2004 Influenza Virus Vaccine 30067 Given 08/16/2003 Influenza Virus Vaccine 24034 Given 10/01/2002 Influenza Virus Vaccine 39882 Given 05/25/1998 Tetanus Toxoid 46461 Refused 08/19/2018 Influenza Virus Vaccine, Quadrivalent (Cciiv4), Derived From Cell Vital Signs Date Vital Result Comment 06/19/2021 2:11pm BP Systolic 86 mmHg BP Diastolic 58 mmHg Heart Rate 96 /min Height 71 inches 5'11" Weight 135.00 lb O2 % BldC Oximetry 89 % 2 liters BMI (Body Mass Index) 18.8 kg/m2 05/23/2021 10:44am BP Systolic 100 mmHg BP Diastolic 58 mmHg Heart Rate 82 /min Height 71 inches 5'11" Weight 143.00 lb O2 % BldC Oximetry 94 % 2 liters BMI (Body Mass Index) 19.9 kg/m2 Results Test Acquired Date Facility Test Result H/L Range Note Istat Chem8+ Panel 06/20/2021 [facility] [address], [place] [id number] [phone] iSTAT HCT 33.0 % Low 38.0-51.0 iSTAT Glucose 141 mg/dL High 70-105 iSTAT Sodium 136 mEq/L Normal 136-145 iSTAT Potassium 4.3 mEq/L Normal 3.5-5.1 iSTAT CA++ 4.7 mg/dL Normal 4.5-5.3 iSTAT Chloride 99 mEq/L Normal 98-109 iSTAT Co2 24.0 MM/L Normal 23.0-27.0 iSTAT BUN 28 mg/dL High 8-26 iSTAT Creatinine 0.4 mg/dL Low 0.6-1.3 Laboratory test finding 06/20/2021 [facility] [address] [place] [address] [phone] Lactic Acid Sepsis Protocol 1.1 mmol/L Normal 0.4- 2.0 1 CBC With Differential 06/20/2021 [facility] [address] [place] [address] [phone] White Blood Count 8.8 10 Normal 4.0-10.0 [...] 36.0-66.0 Lymph % 6.3 % Low 24.0-44.0 [place] % 5.3 % Normal 2.0-8.0 Eos % 0.0 % Normal 0.0-3.0 Baso % 0.3 % Normal 0.0-1.0 Immature Granulocyte % 0.8 % Normal 0-3.0 Nucleated Red Blood Cell % 0.0 % Normal 0-0 Neutrophils # 7.7 10 Normal 1.5-8.5 Lymph # 0.6 10 Low 1.5-5.0 [place] # 0.5 10 Normal 0.0-0.8 Eos # 0.0 10 Normal 0.0-0.5 Baso # 0.0 10 Normal 0.0-0.2 Liver Profile 06/20/2021 [facility] [address] [place] [address] [phone] Ast/Sgot 115 U/L High 7-37 Alt/SGPT 244 U/L High 12-78 Alkaline Phosphatase 143 U/L High 45-117 Bilirubin,Total 0.3 mg/dL Normal 0.2-1.0 Bilirubin,Direct 0.1 mg/dL Normal 0.0-0.2 Total Protein 6.5 GM/DL Normal 6.4-8.2 Albumin 2.4 GM/DL Low 3.2-5.2 Albumin/Globulin Ratio 0.6 Normal Laboratory test finding 06/20/2021 [facility] [address] [place] [address] [phone] NT-Pro BNP 698 pg/mL High <450 Thyroid Stimulating Hormone 0.820 uIU/ML Normal 0.358-3.740 Influenza A/B RSV Covid Amp 06/20/2021 [facility] [address] [place] [address] [phone] Influenza A Amplification NEGATIVE Normal Negati ve 2 Influenza B Amplification NEGATIVE Normal Negative 3 RSV Amplification NEGATIVE Normal Negative 4 Sars Covid-19 Amplification NEGATIVE Normal Negative 5 Arterial Blood Gas 06/20/2021 [facility] [address] [place] [address] [phone] ABG pH (Arterial) 7.471 units High 7.350-7.450 ABG Partial Pressure Co2 38.5 mmHg Normal 35.0-45.0 ABG Partial Pressure O2 107.9 mmHg High 75.0-100.0 ABG Total Co2 28.6 mEq/L Normal 23.0-31.0 ABG Hco3 27.5 mEq/L High 22.0-26.0 ABG Base Excess 3.6 High -2.0-2.0 ABG Standard Hco3 27.7 mEq/L High 22.0-26.0 ABG O2 Saturation 98.3 % Normal 95.0-99.0 Complete Blood Count 06/19/2021 [facility] Item Processing Clerk: [place] [address] [phone] WBC 10.3 x10*3/UL 4.1 - 10.9 RBC [...] 2.0 - 7.8 Comprehensive Chem Profile 06/19/2021 [facility] Item Processing Clerk: [place] [address] [phone] Glucose 149 mg/dL High 74 - 99 [...] mL/min >60 8 Complete Blood Count 05/09/2021 [facility] Item Processing Clerk: [place] [address] [phone] WBC 16.6 x10*3/UL High 4.1 - 10.9 [...] 2.0 - 7.8 Basic Metabolic Panel 05/09/2021 [facility] Item Processing Clerk: [place] [address] [phone] Glucose 87 mg/dL 74 - 99 10 BUN 14 mg/dL 7 - 18 Creatinine 0.8 mg/dL 0.6 - 1.3 Sodium 136 mEq/L 136 - 145 Potassium 3.6 mEq/L 3.5 - 5.1 Chloride 100 mEq/L 98 - 107 Carbon Dioxide 26 mEq/L 21 - 32 Calcium 8.4 mg/dL Low 8.5 - 10.1 11 GFR >= 60 mL/min >60 GFR >= 60 mL/min >60 12 Laboratory test finding 04/28/[address] [address] [phone] Platelet Estimate NORMAL Normal Normal Laboratory test finding 04/28/[address] [address] [phone] NT-Pro BNP 2940 pg/mL High <450 Thyroxine (T4) 6.4 g/dL Normal 4.5-12.0 Thyroid Stimulating Hormone 1.020 uIU/ML Normal 0.358-3.740 Basic Metabolic Profile 04/28/[address] [address] [phone] Glucose, Fasting 125 mg/dL High 70-100 Blood Urea Nitrogen 28 mg/dL High 7-18 Creatinine For GFR 1.13 mg/dL Normal 0.70-1.30 Glomerular Filtration Rate > 60.0 Normal >42 1 3 Sodium Level 130 mEq/L Low 136-145 Potassium Serum 4.9 mEq/L Normal 3.5-5.1 Chloride Level 99 mEq/L Normal 98-107 Carbon Dioxide Level 22 mEq/L Normal 21-32 Anion Gap 9 mEq/L Normal 8-16 Calcium Level 8.3 mg/dL Low 8.8-10.2 Liver Profile 04/28/[address] [address] [phone] Ast/Sgot 33 U/L Normal 7-37 Alt/SGPT 56 U/L Normal 12-78 Alkaline Phosphatase 78 U/L Normal 45-117 Bilirubin,Total 0.5 mg/dL Normal 0.2-1.0 Bilirubin,Direct 0.2 mg/dL Normal 0.0-0.2 Total Protein 6.2 GM/DL Low 6.4-8.2 Albumin 2.2 GM/DL Low 3.2-5.2 Albumin/Globulin Ratio 0.6 Normal Cardiac Marker Panel 04/28/[address] [address] [phone] CPK Creatine Phosphokinase 143 U/L Normal 39-30 8 CK-MB Value Mass 3.2 NG/ML Normal <3.6 MB/CK Relative Index 2.24 Normal < Or =4 14 Troponin I 0.07 NG/ML Normal < 0.10 15 Laboratory test finding 04/28/[address] [address] [phone] Lactic Acid Sepsis Protocol 1.6 mmol/L Normal 0.4- 2.0 16 Venous Blood Gas 04/28/[address] [address] [phone] Venous PH 7.424 units Normal 7.330-7.430 Venous Partial Pressure Co2 33.9 mmHg Low 38.0-50.0 Venous Partial Pressure O2 65.4 mmHg High 30.0-50.0 Venous Total Co2 22.7 mEq/L Low 24.0-28.0 Venous Hco3 21.7 mEq/L Low 23.0-27.0 Venous Base Excess -2.0 Normal -2.0-2.0 Venous Standard Hco3 22.7 mEq/L Normal Venous O2 Saturation 92.9 % High 60.0-80.0 Respiratory Panel 04/28/[address] [address] [phone] Respiratory Panel This respiratory <SEE NOTE> 17 Differential 04/28/2021 [facility] [address] [place] [address] [phone] Neutrophils 62 % Normal 28-66 Bands 30 % High < 11 Lymphocytes 1 % Low 16-44 Monocytes 5 % Normal 0-5 Eosinophils 2 % Normal 0-3 Anisocytosis 1+ Normal Microcytosis 2+ Normal CBC With Differential 04/28/[address] [address] [phone] White Blood Count 21.6 10 High 4.0-10.0 [...] Blood Cell % 0.0 % Normal 0-0 Coronavirus 2019 Nasopharygeal 04/05/[address] [address] [phone] Coronavirus 2019 Nasopharygeal NOTE: The COVID- <SEE N OTE> 18 Complete Blood Count 01/12/2021 [facility] Item Processing Clerk: [place] [address] [phone] WBC 11.9 x10*3/UL High 4.1 - 10.9 [...] - 7.8 Total Iron Binding Capacit 01/12/2021 [facility] [address], [place] [address] [phone] Iron (Fe) 92 g/dL Normal 65-175 Total Iron Binding Capacity 318 g/dL Normal 250-450 Percent Saturation 28.9 % Normal 19.7-50.0 Laboratory test finding 12/28/2020 [facility] Item Processing Clerk: [place] [address] [phone] Fecal Immunochemical Test POSITIVE Abnormal Negati ve Total Iron Binding Capacit 12/25/2020 [facility] [address], [place] [address] [phone] Iron (Fe) 40 g/dL Low 65-175 Total Iron Binding Capacity 350 g/dL Normal 250-450 Percent Saturation 11.4 % Low 19.7-50.0 Complete Blood Count 12/25/2020 [facility] Item Processing Clerk: [place] [address] [phone] WBC 10.8 x10*3/UL 4.1 - 10.9 RBC 4.97 x10*6/UL 4.20 - 6.30 Hemoglobin 11.7 g/dL Low 12.0 - 18.0 20 Hematocrit 35.1 % Low 37.0 - 51.0 MCV 70.7 fL Low 80.0 - 97.0 MCH 23.5 pg Low 26.0 - 32.0 MCHC 33.3 g/dL 31.0 - 38.0 RDW 14.8 % High 11.6 - 13.7 PLT 219 x10*3/UL 140 - 440 MPV 8.0 FL 7.8 - 11.0 Lymph % 3.6 % Low 10.0 - 58.5 Mid % 4.9 % 1.7 - 9.3 Neut % 91.5 % 37.0 - 92.0 Lymph # 0.3 x10*3/UL Low 0.6 - 4.1 Mid # 0.6 x10*3/UL 0.1 - 0.6 Neut # 9.9 x10*3/UL High 2.0 - 7.8 1 Y/N query for Sepsis Lactate Rule: Y 2 Negative results do not prec lude influenza or RSV virus infection and should not be used as the sole basis for treatment or other patient management decisions. 3 Negative results do not prec lude influenza or RSV virus infection and should not be used as the sole basis for treatment or other patient management decisions. 4 Negative results do not prec lude influenza or RSV virus infection and should not be used as the sole basis for treatment or other patient management decisions. 5 A false negative result may occur if [...] pathogens. DISCLAIMER: Testing was performed using the [employer] SARS-CoV-2 test. This test was developed and its performance characteristics determined by [employer]. This test has not been FDA cleared [...] the authorization is terminated or revoked sooner. 6 NOTE: RESULT VERIFIED. 7 100-125 mg/dL PRE-DIABET ES/FASTING >126 mg/dL DIABETES/FASTING 8 CHRONIC KIDNEY DISEASE STAGI NG PER NKF STAGE I & II GFR >= 60 NORMAL TO MILDLY DECREASED STAGE III GFR 30-59 MODERATELY DECREASED STAGE IV GFR 15-29 SEVERELY DECREASED STAGE V GFR <15 VERY LITTLE GFR LEFT ESRD GFR <15 ON HIGHBALLER 9 NOTE: RESULT VERIFIED. 10 100-125 mg/dL PRE-DIABET ES/FASTING >126 mg/dL DIABETES/FASTING 11 NOTE: RESULT VERIFIED. 12 CHRONIC KIDNEY DISEASE STAGI NG PER NKF STAGE I & II GFR >= 60 NORMAL TO MILDLY DECREASED STAGE III GFR 30-59 MODERATELY DECREASED STAGE IV GFR 15-29 SEVERELY DECREASED STAGE V GFR <15 VERY LITTLE GFR LEFT ESRD GFR <15 ON HIGHBALLER 13 Units are mL/min/1.73 m2 Chronic Kidney Disease Staging per NKF: Stage I & II GFR >=60 Normal to Mildly Decreased Stage III GFR 30-59 Moderately Decreased Stage IV GFR 15-29 Severely Decreased Stage V GFR <15 Very Little GFR Left ESRD GFR <15 on HIGHBALLER 14 DIAGNOSIS CRITERIA MMB ng/ml Relative Index (RI) NON-AMI < or = 5 N/A M[place]AYOR ZONE > 5 < or = 4 AMI > 5 > 4 15 Troponin I Reference Interva l for [employer] LOCI: 99th Percentile= 0.00-0.045 ng/ml Risk Stratification: <= 0.10 ng/ml Decreased Risk for Adverse Clinical Events. 0.10-1.50 ng/ml Increased Risk for Adv erse Clinical Events. Evaluation of additional criterion and/or repeat testing in 2-6 hours is suggested to rule out myocardial damage. >= 1.50 ng/ml Indicative of Myocardial Injury. 16 Y/N query for Sepsis Lactate Rule: Y 17 This respiratory PCR panel d etects [...] (COVID 19) NEGATIVE - SARS-CoV-2 (COVID19) 18 NOTE: The COVID-19 assay is under Emergency Use Authorization (EUA) by the U.S. Food and Drug Administration. [employer] is designated as a high complexity laboratory by the Clinical Laboratory Improvement Amendments of 1988(CLIA) and is qualified to perform this test. ASSAY INFORMATION: Real Time RT-PCR or TMA. Both RT-PCR and TMA are molecular testing modalities and are recommended by the CDC for passenger travel. Not Detected 19 NOTE: cbc verified 20 NOTE: RESULT VERIFIED. Procedures Date Code Description Status 06/19/2021 70797 Office/Outpatient Established Mo d MDM 30-39 Min Completed 05/23/2021 70374 Office/Outpatient Established Mo d MDM 30-39 Min Completed 05/09/2021 32723 [facility] SRV W/I 7 Days Of DC, C omm W/I 2 Dys Med Rec Completed 12/25/2020 11191 Office/Outpatient Established Mo d MDM 30-39 Min Completed 03/22/2016 [id number] Colonoscopy Completed 02/03/2015 [id number] Colonoscopy Completed 01/06/2014 [id number] Colonoscopy Completed 05/24/2011 [id number] Colonoscopy Completed 04/21/2007 [id number] Colonoscopy Completed Medical Devices Description No Information Available Encounters Type Date Location Provider Dx Diagnosis Office Visit 06/19/2021 1:30p Chase Gerard MD J44.9 Chronic obstructive pulmonary disease, u nspecified J47.9 Bronchiectasis, uncomplicate d J96.11 Chronic respiratory failure with hypoxia 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 G47.33 Obstructive sleep apnea (maryann lt) (pediatric) J18.1 Lobar pneumonia, unspecified organism I95.1 Orthostatic hypotension D64.9 Anemia, unspecified Office Visit 05/23/2021 10:40a [facility] InternChase kellogg MD J44.9 Chronic obstructive pulmonary disease, u nspecified J96.11 Chronic respiratory failure with hypoxia D64.9 Anemia, unspecified G47.33 Obstructive sleep apnea (maryann lt) (pediatric) Z79.52 custodial (current) use of s ystemic steroids E78.00 Pure hypercholesterolemia, u nspecified I95.1 Orthostatic hypotension Office Visit 05/09/2021 9:40a [facility] J18.1 Lobar pneumonia, unspecified organism I10 Essential (primary) hyperten zac J44.9 Chronic obstructive pulmonar y disease, unspecified G47.33 Obstructive sleep apnea (maryann lt) (pediatric) D64.9 Anemia, unspecified J96.11 Chronic respiratory failure with hypoxia M48.061 Spinal stenosis, lumbar rebecca on without neurogenic douglas 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 Office Visit 12/25/2020 1:00p [facility] MD D64.9 Anemia, unspecified I10 Essential (primary) hyperten zac E78.00 Pure hypercholesterolemia, u nspecified G47.33 Obstructive sleep apnea (maryann lt) (pediatric) J44.9 Chronic obstructive pulmonar y disease, unspecified Z79.52 custodial (current) use of s ystemic steroids J96.11 Chronic respiratory failure with hypoxia M48.061 Spinal stenosis, lumbar rebecca on without neurogenic douglas N35.811 Other urethral stricture, ma le, meatal 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 Z13.89 Encounter for screening for other disorder Assessments Date Code Description Provider 06/19/2021 J44.9 Chronic obstructive pulmonary di sease, unspecified Arron Deras MD 06/19/2021 J47.9 Bronchiectasis, uncomplicated Co llsandra Deras MD 06/19/2021 J96.11 Chronic respiratory failure with hypoxia Arron Deras MD 06/19/2021 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.52 buttermaker 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 of syste clint steroids Arron [...] (adult) (pediatric) Arron Deras MD 05/23/2021 Z79.52 custodial (current) use of syste clint steroids Arron [...] neurogenic claudication HINA Penn JR 05/09/2021 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 buttermaker 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 of syste clint steroids HINA ePnn JR 01/12/2021 D64.9 Anemia, unspecified Arron lao MD 01/12/2021 D64.9 Anemia, unspecified Lab Schedule 12/28/2020 Z12.12 Encounter for screening for sravanthi gnant neoplasm of rectum Arron Deras MD 12/25/2020 D64.9 Anemia, unspecified Arron lao MD 12/25/2020 I10 Essential (primary) hypertension Arron Deras MD 12/25/2020 E78.00 Pure hypercholesterolemia, unspe cified Arron Deras MD 12/25/2020 G47.33 Obstructive sleep apnea (adult) (pediatric) Arron Deras MD 12/25/2020 J44.9 Chronic obstructive pulmonary di sease, unspecified Arron Deras MD 12/25/2020 Z79.52 custodial (current) use of syste clint steroids Arron Deras MD 12/25/2020 J96.11 Chronic respiratory failure with hypoxia Arron Deras MD 12/25/2020 M48.061 Spinal stenosis, lum bar region without neurogenic claudication Arron Deras MD 12/25/2020 N35.811 Other urethral stricture, male, meatal Arron Deras MD 12/25/2020 Z85.46 Personal history of malignant ne oplasm of prostate Arron Deras MD 12/25/2020 Z13.89 Encounter for screening for othe r disorder Arron Deras MD Plan of Treatment Future Appointment(s):* 07/27/2021 11:40 am - Arron Deras MD at [facility] 06/19/2021 - Arron Deras MD* J44.9 Chronic obstructive pulmonary disease, unspecified * J47.9 Bronchiectasis, uncomplicated * J96.11 Chronic respiratory failure with hypoxia * Z79.52 custodial (current) use of systemic steroids * G47.33 [...] Mental Status Description No Information Available Referrals Refer to Reason for Referral Status Appt Date Shukri Hutchinson MD CONSULT FOR SCREENING EGD/COLONOSCOPY DX : NEW ONSET FELICE Closed 03/12/2021 [facility] [address] [address] [phone]
--- OUTSIDE RECORDS SUMMARY | 2021-09-10 11:52 | CCD | Continuity of Care Document ---
Author Author Shukri Deras MD Organization Unknown Address [address] [facility] [address] [place] [address] Phone [phone] Care Team Providers Care News Writer Name Role Phone Bentley Thacker MD AUTM [phone] Arron Deras JR, MD AUTM Unavailable [facility] AUTM [phone] Trino Betancourt MD AUTM [phone] Raciel Gill MD AUTM [phone] Morales Jade MD AUTM [phone] Bhavin Stanton MD AUTM [phone] Guero Norman MD AUTM [phone] [facility] AUTM [phone] [facility] Hea AUTM [phone] Problems Active Problems Provider Date Benign essential [...] daily 60tabs Arron Deras MD 12/26/2020 Nystatin 000830Fbgh/ML Suspension swish and spit 5ml as needed [...] Given 07/20/2020 Influenza,Unspecified U-Flu Given 07/19/2019 Influenza,Unspecified 31423 Given 07/17/2018 Shingrix Zoster Vaccine (HZV), Recombinant, Subunit, Adjuvanted U-Flu Given 07/08/2018 Influenza,Unspecified 03937 Given 02/24/2018 Shingrix 96720 Given 10/21/2016 Pneumovax 23 [id number] U-PneuC Given 10/14/2015 Prevnar 13 Q2037 Given 08/08/2015 Fluvirin Virus Vaccine 51417 01 36545 Given 03/31/2008 Zoster Vaccine 18513 Given 08/18/2007 Influenza Virus Vaccine 21810 Given 10/09/2006 Influenza Virus Vaccine 23513 Given 09/26/2006 Pneumovax 23 21557 Given 08/21/2005 Influenza Virus Vaccine 52312 Given 08/27/2004 Influenza Virus Vaccine 82706 Given 08/16/2003 Influenza Virus Vaccine 82976 Given 10/01/2002 Influenza Virus Vaccine 87642 Given 05/25/1998 Tetanus Toxoid 96795 Refused 08/19/2018 Influenza Virus Vaccine, Quadrivalent (Cciiv4), [...] H/L Range Note Istat Chem8+ Panel 06/20/2021 [facility] nter [address] [place], [place] [id number] [phone] iSTAT HCT 33.0 % Low 38.0-51.0 iSTAT Glucose 141 mg/dL High 70-105 iSTAT Sodium 136 mEq/L Normal 136-145 iSTAT Potassium 4.3 mEq/L Normal 3.5-5.1 iSTAT CA++ 4.7 mg/dL Normal 4.5-5.3 iSTAT Chloride 99 mEq/L Normal 98-109 iSTAT Co2 24.0 MM/L Normal 23.0-27.0 iSTAT BUN 28 mg/dL High 8-26 iSTAT Creatinine 0.4 mg/dL Low 0.6-1.3 Laboratory test finding 06/20/2021 [facility] [address] [place] [address] [phone] Lactic Acid Sepsis Protocol 1.1 mmol/L Normal 0.4- 2.0 1 CBC With Differential 06/20/2021 [facility] [address] [place] [address] [phone] White Blood Count 8.8 10 Normal 4.0-10.0 [...] 36.0-66.0 Lymph % 6.3 % Low 24.0-44.0 [place] % 5.3 % Normal 2.0-8.0 Eos % 0.0 % Normal 0.0-3.0 Baso % 0.3 % Normal 0.0-1.0 Immature Granulocyte % 0.8 % Normal 0-3.0 Nucleated Red Blood Cell % 0.0 % Normal 0-0 Neutrophils # 7.7 10 Normal 1.5-8.5 Lymph # 0.6 10 Low 1.5-5.0 [place] # 0.5 10 Normal 0.0-0.8 Eos # 0.0 10 Normal 0.0-0.5 Baso # 0.0 10 Normal 0.0-0.2 Liver Profile 06/20/2021 [facility] nter [address] [place] [address] [phone] Ast/Sgot 115 U/L High 7-37 Alt/SGPT 244 U/L High 12-78 Alkaline Phosphatase 143 U/L High 45-117 Bilirubin,Total 0.3 mg/dL Normal 0.2-1.0 Bilirubin,Direct 0.1 mg/dL Normal 0.0-0.2 Total Protein 6.5 GM/DL Normal 6.4-8.2 Albumin 2.4 GM/DL Low 3.2-5.2 Albumin/Globulin Ratio 0.6 Normal Laboratory test finding 06/20/2021 [facility] [address] [place] [address] [phone] NT-Pro BNP 698 pg/mL High <450 Thyroid Stimulating Hormone 0.820 uIU/ML Normal 0.358-3.740 Influenza A/B RSV Covid Amp 06/20/[address] [facility] [address] [place] [address] [phone] Influenza A Amplification NEGATIVE Normal Negati ve 2 Influenza B Amplification NEGATIVE Normal Negative 3 RSV Amplification NEGATIVE Normal Negative 4 Sars Covid-19 Amplification NEGATIVE Normal Negative 5 Arterial Blood Gas 06/20/2021 [facility] nter [address] [place] [address] [phone] ABG pH (Arterial) 7.471 units High 7.350-7.450 ABG Partial Pressure Co2 38.5 mmHg Normal 35.0-45.0 ABG Partial Pressure O2 107.9 mmHg High 75.0-100.0 ABG Total Co2 28.6 mEq/L Normal 23.0-31.0 ABG Hco3 27.5 mEq/L High 22.0-26.0 ABG Base Excess 3.6 High -2.0-2.0 ABG Standard Hco3 27.7 mEq/L High 22.0-26.0 ABG O2 Saturation 98.3 % Normal 95.0-99.0 Complete Blood Count 06/19/2021 [facility] [employer] [facility] [employer] Meal Grinder Tender: [place] [address] [phone] WBC 10.3 x10*3/UL 4.1 - 10.9 RBC [...] 2.0 - 7.8 Comprehensive Chem Profile 06/19/2021 [facility] [employer] Tender: [place] [address] [phone] Glucose 149 mg/dL High 74 - 99 [...] mL/min >60 8 Complete Blood Count 05/09/2021 [facility] [employer] Me[employer] Grinder Tender: [place] [address] [phone] WBC 16.6 x10*3/UL High 4.1 - 10.9 [...] 2.0 - 7.8 Basic Metabolic Panel 05/09/2021 [facility] Meal Grinder Tender: [place] [address] [phone] Glucose 87 mg/dL 74 - 99 10 [...] mL/min >60 12 Laboratory test finding 04/28/[address] [address] [phone] Platelet Estimate NORMAL Normal Normal Laboratory test finding 04/28/[address] [address] [phone] NT-Pro BNP 2940 pg/mL High <450 Thyroxine (T4) 6.4 g/dL Normal 4.5-12.0 Thyroid Stimulating Hormone 1.020 uIU/ML Normal 0.358-3.740 Basic Metabolic Profile 04/28/[address] [address] [phone] Glucose, Fasting 125 mg/dL High 70-100 Blood [...] 8.3 mg/dL Low 8.8-10.2 Liver Profile 04/28/[address] [address] [phone] Ast/Sgot 33 U/L Normal 7-37 Alt/SGPT 56 U/L Normal 12-78 Alkaline Phosphatase 78 U/L Normal 45-117 Bilirubin,Total 0.5 mg/dL Normal 0.2-1.0 Bilirubin,Direct 0.2 mg/dL Normal 0.0-0.2 Total Protein 6.2 GM/DL Low 6.4-8.2 Albumin 2.2 GM/DL Low 3.2-5.2 Albumin/Globulin Ratio 0.6 Normal Cardiac Marker Panel 04/28/[address] [address] [phone] CPK Creatine Phosphokinase 143 U/L Normal 39-30 8 CK-MB Value Mass 3.2 NG/ML Normal <3.6 MB/CK Relative Index 2.24 Normal < Or =4 14 Troponin I 0.07 NG/ML Normal < 0.10 15 Laboratory test finding 04/28/[address] [address] [phone] Lactic Acid Sepsis Protocol 1.6 mmol/L Normal 0.4- 2.0 16 Venous Blood Gas 04/28/[address] [address] [phone] Venous PH 7.424 units Normal 7.330-7.430 Venous Partial Pressure Co2 33.9 mmHg Low 38.0-50.0 Venous Partial Pressure O2 65.4 mmHg High 30.0-50.0 Venous Total Co2 22.7 mEq/L Low 24.0-28.0 Venous Hco3 21.7 mEq/L Low 23.0-27.0 Venous Base Excess -2.0 Normal -2.0-2.0 Venous Standard Hco3 22.7 mEq/L Normal Venous O2 Saturation 92.9 % High 60.0-80.0 Respiratory Panel 04/28/[address] [address] [phone] Respiratory Panel This respiratory <SEE NOTE> 17 Differential 04/28/2021 [facility] nter [address] [place] [address] [phone] Neutrophils 62 % Normal 28-66 Bands 30 % High < 11 Lymphocytes 1 % Low 16-44 Monocytes 5 % Normal 0-5 Eosinophils 2 % Normal 0-3 Anisocytosis 1+ Normal Microcytosis 2+ Normal CBC With Differential 04/28/[address] [address] [phone] White Blood Count 21.6 10 High 4.0-10.0 [...] % Normal 0-0 Coronavirus 2019 Nasopharygeal 04/05/[address] [address] [phone] Coronavirus 2019 Nasopharygeal NOTE: The COVID- <SEE N OTE> 18 Complete Blood Count 01/12/2021 [facility] [employer] [facility] [employer] [facility] Meal Grinder Tender: [place] [address] [phone] WBC 11.9 x10*3/UL High 4.1 - 10.9 [...] - 7.8 Total Iron Binding Capacit 01/12/2021 [facility] [address] [place], [place] [address] [phone] Iron (Fe) 92 g/dL Normal 65-175 Total Iron Binding Capacity 318 g/dL Normal 250-450 Percent Saturation 28.9 % Normal 19.7-50.0 Laboratory test finding 12/28/2020 [facility] [employer] Meal Grinder Tender: [place] [address] [phone] Fecal Immunochemical Test POSITIVE Abnormal Negati ve Total Iron Binding Capacit 12/25/2020 [facility] [address] [place], [place] [address] [phone] Iron (Fe) 40 g/dL Low 65-175 Total Iron Binding Capacity 350 g/dL Normal 250-450 Percent Saturation 11.4 % Low 19.7-50.0 Complete Blood Count 12/25/2020 [facility] [employer] Meal Grinder Tender: [place] [address] [phone] WBC 10.8 x10*3/UL 4.1 - 10.9 RBC [...] pathogens. DISCLAIMER: Testing was performed using the [employer] SARS-CoV-2 test. This test was developed and its performance characteristics determined by [employer]. This test has not been FDA cleared [...] LITTLE GFR LEFT ESRD GFR <15 ON DIRECTOR SOFTWARE DEVELOPMENT 9 NOTE: RESULT VERIFIED. 10 100-125 mg/dL PRE-DIABET ES/FASTING >126 mg/dL DIABETES/FASTING 11 NOTE: RESULT VERIFIED. 12 CHRONIC KIDNEY DISEASE STAGI NG PER NKF STAGE I & II GFR >= 60 NORMAL TO MILDLY DECREASED STAGE III GFR 30-59 MODERATELY DECREASED STAGE IV GFR 15-29 SEVERELY DECREASED STAGE V GFR <15 VERY LITTLE GFR LEFT ESRD GFR <15 ON DIRECTOR SOFTWARE DEVELOPMENT 13 Units are mL/min/1.73 m2 Chronic Kidney Disease Staging per NKF: Stage I & II GFR >=60 Normal to Mildly Decreased Stage III GFR 30-59 Moderately Decreased Stage IV GFR 15-29 Severely Decreased Stage V GFR <15 Very Little GFR Left ESRD GFR <15 on DIRECTOR SOFTWARE DEVELOPMENT 14 DIAGNOSIS CRITERIA MMB ng/ml Relative Index (RI) NON-AMI < or = 5 N/A MONTEMAYOR ZONE > 5 < or = 4 AMI > 5 > 4 15 Troponin I Reference Interva l for Dibspace LOCI: 99th Percentile= 0.00-0.045 ng/ml Risk Stratification: [...] by the U.S. Food and Drug Administration. [facility] is designated as a high complexity laboratory by the Clinical Laboratory Improvement Amendments of 1988(CLIA) and is qualified to perform this test. ASSAY INFORMATION: Real Time RT-PCR or TMA. Both RT-PCR and TMA are molecular testing modalities and are recommended by the CDC for passenger travel. Not Detected 19 NOTE: cbc verified 20 NOTE: RESULT VERIFIED. Procedures Date Code Description Status 06/19/2021 47114 Office/Outpatient Established Mo d MDM 30-39 Min Completed 05/23/2021 83716 Office/Outpatient Established Mo d MDM 30-39 Min Completed 05/09/2021 15339 Rios Cre SRV W/I 7 Days Of DC, C omm W/I 2 Dys Med Rec Completed 12/25/2020 89013 Office/Outpatient Established Mo d MDM 30-39 Min Completed 03/22/2016 [id number] Colonoscopy Completed 02/03/2015 [id number] Colonoscopy Completed 01/06/2014 [id number] Colonoscopy Completed 05/24/2011 [id number] Colonoscopy Completed 04/21/2007 [id number] Colonoscopy Completed Medical Devices Description No Information Available Encounters Type Date Location Provider Dx Diagnosis Office Visit 06/19/2021 1:30p Chase Gerard MD J44.9 Chronic obstructive pulmonary disease, u nspecified J47.9 Bronchiectasis, uncomplicate d J96.11 Chronic respiratory failure with hypoxia Z79.52 watermelon harvesting supervisor (current) use of s ystemic steroids G47.33 Obstructive sleep apnea (maryann lt) (pediatric) J18.1 Lobar pneumonia, unspecified organism I95.1 Orthostatic hypotension D64.9 Anemia, unspecified Office Visit 05/23/2021 10:40a [facility] InternChase kellogg MD J44.9 Chronic obstructive pulmonary disease, u nspecified J96.11 Chronic respiratory failure with hypoxia D64.9 Anemia, unspecified G47.33 Obstructive sleep apnea (maryann lt) (pediatric) Z79.52 residential (current) use of s ystemic steroids E78.00 Pure hypercholesterolemia, u nspecified I95.1 Orthostatic hypotension Office Visit 05/09/2021 9:40a [facility], [place] J18.1 Lobar pneumonia, unspecified organism I10 Essential (primary) hyperten zac J44.9 Chronic obstructive pulmonar y disease, unspecified G47.33 Obstructive sleep apnea (maryann lt) (pediatric) D64.9 Anemia, unspecified J96.11 Chronic respiratory failure with hypoxia M48.061 Spinal stenosis, lumbar rebecca on without neurogenic douglas Z79.52 watermelon harvesting supervisor (current) use of s ystemic steroids Office Visit 12/25/2020 1:00p [facility] Deras MD D64.9 Anemia, unspecified I10 Essential (primary) hyperten zac E78.00 Pure hypercholesterolemia, u nspecified G47.33 Obstructive sleep apnea (maryann lt) (pediatric) J44.9 Chronic obstructive pulmonar y disease, unspecified Z79.52 residential (current) use of s ystemic steroids J96.11 [...] with hypoxia Arron Deras MD 06/19/2021 Z79.52 watermelon harvesting supervisor (current) use of syste clint steroids Arron [...] (adult) (pediatric) Arron Deras MD 05/23/2021 Z79.52 residential (current) use of syste clint steroids Arron [...] neurogenic claudication HINA Penn JR 05/09/2021 Z79.52 watermelon harvesting supervisor (current) use of syste clint steroids HINA [...] sease, unspecified Arron Deras MD 12/25/2020 Z79.52 residential (current) use of syste clint steroids Arron [...] 11:40 am - Arron Deras MD at [facility] 06/19/2021 - Arron Deras MD* J44.9 Chronic obstructive pulmonary disease, unspecified * J47.9 Bronchiectasis, uncomplicated * J96.11 Chronic respiratory failure with hypoxia * Z79.52 residential (current) use of systemic steroids * G47.33 [...] FOR SCREENING EGD/COLONOSCOPY DX : NEW ONSET FLEICE Closed 03/12/2021 [facility] [address] [address] [phone]
--- OUTSIDE RECORDS SUMMARY | 2021-09-10 11:52 | CCD | Continuity of Care Document ---
Author Author Shukri THACKER MD Organization Unknown Address [address] [place] [address] Phone [phone] Care Team Providers Care Dispatcher Tugboat Name Role Phone Arron Deras MD @ [facility] AUTM Trino Betancourt M.D. AUTM [phone] Bentley Thacker M.D. AUTM [phone] Problems Active Problems Provider Date Essential hypertension [...] po q6h prn for pain Unknown Nystatin 697508Tpoh/ML Suspension Use 5ML By Mouth Swish And [...] CPT Code Status Date Vaccine Lot # 97568 Given 07/29/2016 Influenza Virus Split 3 Yrs And Above For Intramuscular Use 31988 Given 08/08/2015 Influenza Virus Split 3 Yrs And Above For Intramuscular Use 03623 Given 07/13/2015 Pneumococcal PPSV23 82104 Given 12/27/2014 Prevnar 13 01331 Given 08/18/2014 Influenza Virus Split 3 Yrs And Above For Intramuscular Use Q2036 Given 08/04/2013 Influenza Vaccine 3 Years Of Age Or Older (Flulaval) Q2036 Given 07/14/2012 Influenza Vaccine 3 Years Of Age Or Older (Flulaval) 82157 Given 07/14/2012 Pneumococcal PPSV23 Q2036 Given 07/13/2012 Influenza Vaccine 3 Years Of Age Or Older (Flulaval) 55476 Given 08/07/2011 Influenza Virus Split 3 Yrs And Above For Intramuscular Use 62985 Given 09/26/2010 Pneumococcal PPSV23 71134 Given 07/24/2010 Influenza Virus Split 3 Yrs And Above For Intramuscular Use 14489 Given 09/29/2009 Influenza Vaccine 51143 Given 09/19/2008 Influenza Vaccine 49334 Given 08/25/2003 Pneumococcal PPSV23 23386 Given Unknown Pneumococcal PPSV23 40748 Given Unknown Prevnar 13 Vital Signs Date Vital Result Comment 07/03/2021 1:40pm BP Systolic 86 mmHg BP Diastolic 58 mmHg Heart Rate 74 /min O2 % BldC Oximetry 942 % Height 72 inches 6'0" Weight 127.00 lb BMI (Body Mass Index) 17.2 kg/m2 [place] Body Weight 178 lb Weight 57.607 kg BSA (Body Surface Area) 1.76 m2 05/21/2021 2:56pm BP Systolic 100 mmHg BP Diastolic 60 mmHg Heart Rate 86 /min O2 % BldC Oximetry 932 % Height 72 inches 6'0" [place] Body Weight 178 lb Results Test Acquired Date Facility Test Result H/L Range Note Complete Blood Count 03/13/2021 [facility] Main Lab [address] [place] [address] [phone] White Blood Count 13.3 10 High 4.0-10.0 [...] 0-0 1 Total Iron Binding Capacit 03/13/2021 [facility] Main Lab [address] [place], [place] [address] [phone] Iron (Fe) 54 g/dL Low 65-175 Total Iron Binding Capacity 285 g/dL Normal 250-450 Percent Saturation 18.9 % Low 19.7-50.0 2 Comprehensive Metabolic Profil 03/13/2021 [facility] Main Lab [address] [place], [place] [address] [phone] Glucose, Fasting 96 mg/dL Normal 70-100 Blood [...] Little GFR Left ESRD GFR <15 on INSURANCE SALES PRODUCER 4 03/15/21 (Thr March 15) 09:17 A M KIEL CHARLEBOIS No significant abnormalities. Procedures Date Code Description Status 05/21/2021 18236 Office/Outpatient Established Mo d MDM 30-39 Min Completed 05/04/2021 85256 Hospital Subsequent Care Level 2 Completed 05/03/2021 50910 Hospital Subsequent Care Level 2 Completed 05/02/2021 16766 Hospital Subsequent Care Level 2 Completed 05/01/2021 42124 Hospital Subsequent Care Level 2 Completed 04/29/2021 79869 Hospital Initial Care Level 1 Co mpleted 03/12/2021 35050 Office/Outpatient New Low MDM 30 -44 Minutes Completed 03/08/2021 26003 Office/Outpatient Established Mo d MDM 30-39 Min Completed Medical Devices Description No Information Available Encounters Type Date Location Provider Dx Diagnosis Office Visit 05/21/2021 2:30p [facility] Sheng Thacker MD J96.11 Chronic respiratory failure with hypoxia 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 J90 Pleural effusion, not elsewhere classifi ed J44.9 Chronic obstructive pulmonar y disease, unspecified E87.6 Hypokalemia Office Visit 05/03/2021 1:23a [facility] D avid P. Rechlin, DO J15.1 Pneumonia due to Pseudomonas J90 Pleural effusion, not elsewh ere classified J44.9 Chronic obstructive pulmonar y disease, unspecified Office Visit 05/02/2021 1:23a [facility] D avid P. Rechlin, DO J15.1 Pneumonia due to Pseudomonas J90 Pleural effusion, not elsewh ere classified J44.9 Chronic obstructive pulmonar y disease, unspecified Office Visit 05/01/2021 1:23a [facility] D avid P. Rechlin, DO J15.1 Pneumonia due to Pseudomonas J44.9 Chronic obstructive pulmonar y disease, unspecified J90 Pleural effusion, not elsewh ere classified Office Visit 04/29/2021 1:23a [facility] Sharda Green M.D. J15.1 Pneumonia due to Pseudomonas J44.9 Chronic obstructive pulmonar y disease, unspecified J96.11 Chronic respiratory failure with hypoxia J90 Pleural effusion, not elsewh ere classified Office Visit 03/12/2021 3:00p [facility] Pra padminiabdulkadir Arthur, RPA-C D50.9 Iron deficiency anemia, unsp ecified R19.5 Other fecal abnormalities Z86.010 Personal history of colonic polyps Z80.0 Family history of malignant neoplasm of digestive organs Office Visit 03/08/2021 1:45p [facility] Lawrenc vy Thacker MD J44.9 Chronic obstructive pulmonary disease, u nspecified J96.11 Chronic respiratory failure with hypoxia 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 G47.33 Obstructive sleep apnea (maryann lt) (pediatric) Z79.52 buttermaker (current) use of s ystemic steroids Z79.899 Other watermelon inspector (current) dr josefina gregory J30.9 Allergic rhinitis, [...] sease, unspecified Bentley Thacker MD 07/03/2021 Z79.52 buttermaker (current) use of syste cilnt steroids Bentley Thacker MD 05/21/2021 J96.11 Chronic respiratory failure with hypoxia Bentley Thacker MD 05/21/2021 Z99.81 Dependence on supplemental oxyge n Bentley Thacker MD 05/21/2021 G47.33 Obstructive sleep apnea (adult) (pediatric) Bentley Thacker MD 05/21/2021 Z79.52 longterm (current) use of syste clint steroids Bentley Thacker MD 05/21/2021 Z79.899 Other care home (current) drug t herapy Bentley Thacker MD [...] (adult) (pediatric) Bentley Thacker MD 03/08/2021 Z79.52 buttermaker (current) use of syste clint steroids Bentley Thacker MD 03/08/2021 Z79.899 Other care home (current) drug t herapy Bentley Thacker MD [...] Chronic obstructive pulmonary disease, unspecified * Z79.52 longterm (current) use of systemic steroids * * New Xrays:* CT Chest W/O Contrast, Ordered: 07/03/21 * Follow up:* Late Sept/ early Oct with CT chest Functional Status Description No Information Available Mental Status Description No Information Available Referrals Description No Information Available
--- OUTSIDE RECORDS SUMMARY | 2021-09-10 11:52 | CCD | Continuity of Care Document ---
Author Author Shukri Deras MD Organization Unknown Address [address] [facility] [address] [place] [address] Phone [phone] Care Team Providers Care Tack Coverer Name Role Phone Bentley Thacker MD AUTM [phone] Arron Deras JR, MD AUTM Unavailable [facility] AUTM [phone] Trino Betancourt MD AUTM Raciel Gill MD AUTM [phone] Morales Jade MD AUTM [phone] Bhavin Stanton MD AUTM [phone] Guero Norman MD AUTM [phone] [facility] AUTM [phone] [facility] AUTM [phone] Problems Active Problems Provider Date Benign essential [...] daily 60tabs Arron Deras MD 12/26/2020 Nystatin [id number] Suspension swish and spit 5ml as needed [...] Given 07/20/2020 Influenza,Unspecified U-Flu Given 07/19/2019 Influenza,Unspecified 61110 Given 07/17/2018 Shingrix Zoster Vaccine (HZV), Recombinant, Subunit, Adjuvanted U-Flu Given 07/08/2018 Influenza,Unspecified 59061 Given 02/24/2018 Shingrix 24682 Given 10/21/2016 Pneumovax 23 [id number] U-PneuC Given 10/14/2015 Prevnar 13 [id number] Given 08/08/2015 Fluvirin Virus Vaccine 12252 01 44207 Given 03/31/2008 Zoster Vaccine 61994 Given 08/18/2007 Influenza Virus Vaccine 07444 Given 10/09/2006 Influenza Virus Vaccine 75348 Given 09/26/2006 Pneumovax 23 98811 Given 08/21/2005 Influenza Virus Vaccine 81341 Given 08/27/2004 Influenza Virus Vaccine 55545 Given 08/16/2003 Influenza Virus Vaccine 42862 Given 10/01/2002 Influenza Virus Vaccine 02849 Given 05/25/1998 Tetanus Toxoid 90424 Refused 08/19/2018 Influenza Virus Vaccine, Quadrivalent (Cciiv4), [...] Date Facility Test Result H/L Range Note Comprehensive Chem Profile 06/19/2021 [facility] Building Inspection Engineer: Dr Arron Deras [place], [place] [id number] [phone] Glucose 149 mg/dL High 74 - 99 1 BUN 30 mg/dL High 7 - 18 [...] mL/min >60 GFR >= 60 mL/min >60 2 Complete Blood Count 06/19/2021 [facility] Building Inspection Engineer: [place] [address] [phone] WBC 10.3 x10*3/UL 4.1 - 10.9 RBC 4.70 x10*6/UL 4.20 - 6.30 Hemoglobin 11.2 g/dL Low 12.0 - 18.0 3 Hematocrit 33.0 % Low 37.0 - 51.0 [...] # 9.6 x10*3/UL High 2.0 - 7.8 Complete Blood Count 05/09/2021 [facility] Building Inspection Engineer: [place] [address] [phone] WBC 16.6 x10*3/UL High 4.1 - 10.9 4 RBC 4.62 x10*6/UL 4.20 - 6.30 Hemoglobin [...] 2.0 - 7.8 Basic Metabolic Panel 05/09/2021 [facility] Building Inspection Engineer: Dr Arron Deras [place], [place] [id number] [phone] Glucose 87 mg/dL 74 - 99 5 BUN 14 mg/dL 7 - 18 Creatinine 0.8 mg/dL 0.6 - 1.3 Sodium 136 mEq/L 136 - 145 Potassium 3.6 mEq/L 3.5 - 5.1 Chloride 100 mEq/L 98 - 107 Carbon Dioxide 26 mEq/L 21 - 32 Calcium 8.4 mg/dL Low 8.5 - 10.1 6 GFR >= 60 mL/min >60 GFR >= 60 mL/min >60 7 Cardiac Marker Panel 04/28/[address] [address] [phone] CPK Creatine Phosphokinase 143 U/L Normal 39-30 8 CK-MB Value Mass 3.2 NG/ML Normal <3.6 MB/CK Relative Index 2.24 Normal < Or =4 8 Troponin I 0.07 NG/ML Normal < 0.10 9 Laboratory test finding 04/28/[address] [address] [phone] NT-Pro BNP 2940 pg/mL High <450 Thyroxine (T4) 6.4 g/dL Normal 4.5-12.0 Thyroid Stimulating Hormone 1.020 uIU/ML Normal 0.358-3.740 Basic Metabolic Profile 04/28/[address] [address] [phone] Glucose, Fasting 125 mg/dL High 70-100 Blood Urea Nitrogen 28 mg/dL High 7-18 Creatinine For GFR 1.13 mg/dL Normal 0.70-1.30 Glomerular Filtration Rate > 60.0 Normal >42 1 0 Sodium Level 130 mEq/L Low 136-145 Potassium Serum 4.9 mEq/L Normal 3.5-5.1 Chloride Level 99 mEq/L Normal 98-107 Carbon Dioxide Level 22 mEq/L Normal 21-32 Anion Gap 9 mEq/L Normal 8-16 Calcium Level 8.3 mg/dL Low 8.8-10.2 Liver Profile 04/28/[address] [address] [phone] Ast/Sgot 33 U/L Normal 7-37 Alt/SGPT 56 U/L Normal 12-78 Alkaline Phosphatase 78 U/L Normal 45-117 Bilirubin,Total 0.5 mg/dL Normal 0.2-1.0 Bilirubin,Direct 0.2 mg/dL Normal 0.0-0.2 Total Protein 6.2 GM/DL Low 6.4-8.2 Albumin 2.2 GM/DL Low 3.2-5.2 Albumin/Globulin Ratio 0.6 Normal Laboratory test finding 04/28/[address] [address] [phone] Lactic Acid Sepsis Protocol 1.6 mmol/L Normal 0.4- 2.0 11 Venous Blood Gas 04/28/[address] [address] [phone] Venous PH 7.424 units Normal 7.330-7.430 Venous Partial Pressure Co2 33.9 mmHg Low 38.0-50.0 Venous Partial Pressure O2 65.4 mmHg High 30.0-50.0 Venous Total Co2 22.7 mEq/L Low 24.0-28.0 Venous Hco3 21.7 mEq/L Low 23.0-27.0 Venous Base Excess -2.0 Normal -2.0-2.0 Venous Standard Hco3 22.7 mEq/L Normal Venous O2 Saturation 92.9 % High 60.0-80.0 Respiratory Panel 04/28/2021 [facility] nter [address] [place] [address] [phone] Respiratory Panel This respiratory <SEE NOTE> 12 Laboratory test finding 04/28/[address] [address] [phone] Platelet Estimate NORMAL Normal Normal Differential 04/28/2021 [facility] nter [address] [place] [id number] [phone] Neutrophils 62 % Normal 28-66 Bands 30 % High < 11 Lymphocytes 1 % Low 16-44 Monocytes 5 % Normal 0-5 Eosinophils 2 % Normal 0-3 Anisocytosis 1+ Normal Microcytosis 2+ Normal CBC With Differential 04/28/2021 [place] [address] [phone] White Blood Count 21.6 10 High 4.0-10.0 [...] % Normal 0-0 Coronavirus 2019 Nasopharygeal 04/05/2021 [place] [id number] [phone] Coronavirus 2019 Nasopharygeal NOTE: The COVID- <SEE N OTE> 13 Complete Blood Count 01/12/2021 [facility] Building Inspection Engineer: [place] [address] [phone] WBC 11.9 x10*3/UL High 4.1 - 10.9 14 RBC 5.32 x10*6/UL 4.20 - 6.30 Hemoglobin [...] - 7.8 Total Iron Binding Capacit 01/12/2021 [facility] [address] [id number] [phone] Iron (Fe) 92 g/dL Normal 65-175 Total Iron Binding Capacity 318 g/dL Normal 250-450 Percent Saturation 28.9 % Normal 19.7-50.0 Laboratory test finding 12/28/2020 [facility] Building Inspection Engineer: [place] [address] [phone] Fecal Immunochemical Test POSITIVE Abnormal Negati ve Total Iron Binding Capacit 12/25/[address] [address] [phone] Iron (Fe) 40 g/dL Low 65-175 Total Iron Binding Capacity 350 g/dL Normal 250-450 Percent Saturation 11.4 % Low 19.7-50.0 Complete Blood Count 12/25/2020 [facility] Building Inspection Engineer: Dr Arron Deras [place] [id number] [phone] WBC 10.8 x10*3/UL 4.1 - 10.9 RBC 4.97 x10*6/UL 4.20 - 6.30 Hemoglobin 11.7 g/dL Low 12.0 - 18.0 15 Hematocrit 35.1 % Low 37.0 - 51.0 [...] 9.9 x10*3/UL High 2.0 - 7.8 1 100-125 mg/dL PRE-DIABET ES/FASTING >126 mg/dL DIABETES/FASTING 2 CHRONIC KIDNEY DISEASE STAGI NG PER NKF STAGE I & II GFR >= 60 NORMAL TO MILDLY DECREASED STAGE III GFR 30-59 MODERATELY DECREASED STAGE IV GFR 15-29 SEVERELY DECREASED STAGE V GFR <15 VERY LITTLE GFR LEFT ESRD GFR <15 ON BUILDING SURVEYOR 3 NOTE: RESULT VERIFIED. 4 NOTE: RESULT VERIFIED. 5 100-125 mg/dL PRE-DIABET ES/FASTING >126 mg/dL DIABETES/FASTING 6 NOTE: RESULT VERIFIED. 7 CHRONIC KIDNEY DISEASE STAGI NG PER NKF STAGE I & II GFR >= 60 NORMAL TO MILDLY DECREASED STAGE III GFR 30-59 MODERATELY DECREASED STAGE IV GFR 15-29 SEVERELY DECREASED STAGE V GFR <15 VERY LITTLE GFR LEFT ESRD GFR <15 ON BUILDING SURVEYOR 8 DIAGNOSIS CRITERIA MMB ng/ml Relative Index (RI) NON-AMI < or = 5 N/A MONTEMAYOR ZONE > 5 < or = 4 AMI > 5 > 4 9 Troponin I Reference Interva l for Siemens iLost LOCI: 99th Percentile= 0.00-0.045 ng/ml Risk Stratification: <= 0.10 ng/ml Decreased Risk for Adverse Clinical Events. 0.10-1.50 ng/ml Increased Risk for Adv erse Clinical Events. Evaluation of additional criterion and/or repeat testing in 2-6 hours is suggested to rule out myocardial damage. >= 1.50 ng/ml Indicative of Myocardial Injury. 10 Units are mL/min/1.73 m2 Chronic Kidney Disease Staging per NKF: Stage I & II GFR >=60 Normal to Mildly Decreased Stage III GFR 30-59 Moderately Decreased Stage IV GFR 15-29 Severely Decreased Stage V GFR <15 Very Little GFR Left ESRD GFR <15 on BUILDING SURVEYOR 11 Y/N query for Sepsis Lactate Rule: Y 12 This respiratory PCR panel d etects Influenza A H1, H3 and 2009 H1 viruses, Influenza B virus, Resp iratory Syncytial Virus, Human metapneumovirus, Parainfluenza virus 1, 2, 3 and 4, Adenovirus, Rhinovirus/Enterovirus, Coronavirus HKU1, NL63, OC43, 229E and SARS-CoV-2 (COVID 19), Bordetella pertussis, Bordetella parapertussis, Mycoplasma pneumoniae and Chlamydia pneumoniae. NEGATIVE by MULTIPLEXED NUCLEIC ACID PCR SARS-CoV-2 (COVID 19) NEGATIVE - SARS-CoV-2 (COVID19) 13 NOTE: The COVID-19 assay is under Emergency Use Authorization (EUA) by the U.S. Food and Drug Administration. [facility] is designated as a high complexity laboratory by the Clinical Laboratory Improvement Amendments of 1988(CLIA) and is qualified to perform this test. ASSAY INFORMATION: Real Time RT-PCR or TMA. Both RT-PCR and TMA are molecular testing modalities and are recommended by the CDC for passenger travel. Not Detected 14 NOTE: cbc verified 15 NOTE: RESULT VERIFIED. Procedures Date Code Description Status 06/19/2021 70071 Office/Outpatient Established Mo d MDM 30-39 Min Completed 05/23/2021 27966 Office/Outpatient Established Mo d MDM 30-39 Min Completed 05/09/2021 50483 [facility] SRV W/I 7 Days Of DC, C omm W/I 2 Dys Med Rec Completed 12/25/2020 17059 Office/Outpatient Established Mo d MDM 30-39 Min Completed 03/22/2016 [id number] Colonoscopy Completed 02/03/2015 [id number] Colonoscopy Completed 01/06/2014 [id number] Colonoscopy Completed 05/24/2011 [id number] Colonoscopy Completed 04/21/2007 [id number] Colonoscopy Completed Medical Devices Description No Information Available Encounters Type Date Location Provider Dx Diagnosis Office Visit 06/19/2021 1:30p [facility] Arron Deras MD J44.9 Chronic obstructive pulmonary disease, u nspecified J47.9 Bronchiectasis, uncomplicate d J96.11 Chronic respiratory failure with hypoxia Z79.52 rn long term care (current) use of s ystemic steroids G47.33 Obstructive sleep apnea (maryann lt) (pediatric) J18.1 Lobar pneumonia, unspecified organism I95.1 Orthostatic hypotension D64.9 Anemia, unspecified Office Visit 05/23/2021 10:40a [facility], Chase Deras MD J44.9 Chronic obstructive pulmonary disease, u nspecified J96.11 Chronic respiratory failure with hypoxia D64.9 Anemia, unspecified G47.33 Obstructive sleep apnea (maryann lt) (pediatric) Z79.52 group home (current) use of s ystemic steroids E78.00 Pure hypercholesterolemia, u nspecified I95.1 Orthostatic hypotension Office Visit 05/09/2021 9[facility] J18.1 Lobar pneumonia, unspecified organism I10 Essential (primary) hyperten zac J44.9 Chronic obstructive pulmonar y disease, unspecified G47.33 Obstructive sleep apnea (maryann lt) (pediatric) D64.9 Anemia, unspecified J96.11 Chronic respiratory failure with hypoxia M48.061 Spinal stenosis, lumbar rebecca on without neurogenic douglas Z79.52 group home (current) use of s ystemic steroids Office Visit 12/25/2020 1:00p [facility] MD D64.9 Anemia, unspecified I10 Essential (primary) hyperten zac E78.00 Pure hypercholesterolemia, u nspecified G47.33 Obstructive sleep apnea (maryann lt) (pediatric) J44.9 Chronic obstructive pulmonar y disease, unspecified Z79.52 rn long term care (current) use of s ystemic steroids J96.11 Chronic respiratory failure with hypoxia M48.061 Spinal stenosis, lumbar rbeecca on without neurogenic douglas N35.811 Other urethral stricture, ma le, meatal 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 Z13.89 Encounter for screening for other disorder Assessments Date Code Description Provider 06/19/2021 J44.9 Chronic obstructive pulmonary di sease, unspecified Arron Deras MD 06/19/2021 J47.9 Bronchiectasis, uncomplicated Co llins Kayley Deras MD 06/19/2021 J96.11 Chronic respiratory failure with hypoxia Arron Deras MD 06/19/2021 Z79.52 rn long term care (current) use of syste [...] (adult) (pediatric) Arron Deras MD 05/23/2021 Z79.52 group home (current) use of syste clint steroids Arron Deras MD 05/23/2021 E78.00 Pure hypercholesterolemia, unspe cified Arron Deras MD 05/23/2021 I95.1 Orthostatic hypotension Arron Deras MD 05/09/2021 J18.1 Lobar pneumonia, unspecified org anism Rudy Tonwsend JR, PA 05/09/2021 I10 Essential (primary) hypertension HINA Penn JR 05/09/2021 J44.9 Chronic obstructive pulmonary di sease, unspecified Rudy Townsend JR, PA 05/09/2021 G47.33 Obstructive sleep apnea (adult) (pediatric) HINA Penn JR 05/09/2021 D64.9 Anemia, unspecified Rudy warner JR PA 05/09/2021 J96.11 Chronic respiratory failure with hypoxia [...] sease, unspecified Arron Deras MD 12/25/2020 Z79.52 group home (current) use of syste clint steroids Arron [...] 11:40 am - Arron Deras MD at [facility] 06/19/2021 - Arron Deras MD* J44.9 Chronic obstructive pulmonary disease, unspecified * J47.9 Bronchiectasis, uncomplicated * J96.11 Chronic respiratory failure with hypoxia * Z79.52 rn long term care (current) use of systemic [...] DX : [place] FELICE Closed 03/12/2021 [facility] Medical [facility] [address] [address] [phone]
--- OUTSIDE RECORDS SUMMARY | 2021-09-10 11:52 | CCD | Continuity of Care Document ---
Author Author Shukri Deras MD Organization Unknown Address [address] [facility] [address] [place] [address] Phone [phone] Care Team Providers Care Student Teacher Name Role Phone Bentley Thacker MD AUTM [phone] Arron Deras JR, MD AUTM Unavailable [facility] AUTM [phone] Trino Betancourt MD AUTM Raciel Gill MD AUTM [phone] Morales Jade MD AUTM [phone] Bhavin Stanton MD AUTM [phone] Guero Norman MD AUTM [phone] [facility] AUTM [phone] [facility] AUTM [phone] Problems Active Problems Provider Date Benign essential [...] daily 60tabs Arron Deras MD 12/26/2020 Nystatin 955296Uasi/ML Suspension swish and spit 5ml as needed [...] Given 07/20/2020 Influenza,Unspecified U-Flu Given 07/19/2019 Influenza,Unspecified 48487 Given 07/17/2018 Shingrix Zoster Vaccine (HZV), Recombinant, Subunit, Adjuvanted U-Flu Given 07/08/2018 Influenza,Unspecified 84646 Given 02/24/2018 Shingrix 91808 Given 10/21/2016 Pneumovax 23 [id number] U-PneuC Given 10/14/2015 Prevnar 13 Q2037 Given 08/08/2015 Fluvirin Virus Vaccine 33172 01 81921 Given 03/31/2008 Zoster Vaccine 26531 Given 08/18/2007 Influenza Virus Vaccine 58240 Given 10/09/2006 Influenza Virus Vaccine 95267 Given 09/26/2006 Pneumovax 23 78404 Given 08/21/2005 Influenza Virus Vaccine 90629 Given 08/27/2004 Influenza Virus Vaccine 62966 Given 08/16/2003 Influenza Virus Vaccine 33978 Given 10/01/2002 Influenza Virus Vaccine 90391 Given 05/25/1998 Tetanus Toxoid 50685 Refused 08/19/2018 Influenza Virus Vaccine, Quadrivalent (Cciiv4), [...] H/L Range Note Istat Chem8+ Panel 06/20/2021 [facility] nter [address] [place], [place] [address] [phone] iSTAT HCT 33.0 % Low 38.0-51.0 iSTAT Glucose 141 mg/dL High 70-105 iSTAT Sodium 136 mEq/L Normal 136-145 iSTAT Potassium 4.3 mEq/L Normal 3.5-5.1 iSTAT CA++ 4.7 mg/dL Normal 4.5-5.3 iSTAT Chloride 99 mEq/L Normal 98-109 iSTAT Co2 24.0 MM/L Normal 23.0-27.0 iSTAT BUN 28 mg/dL High 8-26 iSTAT Creatinine 0.4 mg/dL Low 0.6-1.3 Laboratory test finding 06/20/2021 [facility] [address] [place] [address] [phone] Lactic Acid Sepsis Protocol 1.1 mmol/L Normal 0.4- 2.0 1 CBC With Differential 06/20/2021 [facility] [address] [place] [address] [phone] White Blood Count 8.8 10 Normal 4.0-10.0 [...] 36.0-66.0 Lymph % 6.3 % Low 24.0-44.0 [place] % 5.3 % Normal 2.0-8.0 Eos % 0.0 % Normal 0.0-3.0 Baso % 0.3 % Normal 0.0-1.0 Immature Granulocyte % 0.8 % Normal 0-3.0 Nucleated Red Blood Cell % 0.0 % Normal 0-0 Neutrophils # 7.7 10 Normal 1.5-8.5 Lymph # 0.6 10 Low 1.5-5.0 [place] # 0.5 10 Normal 0.0-0.8 Eos # 0.0 10 Normal 0.0-0.5 Baso # 0.0 10 Normal 0.0-0.2 Liver Profile 06/20/2021 [facility] nter [address] [place] [address] [phone] Ast/Sgot 115 U/L High 7-37 Alt/SGPT 244 U/L High 12-78 Alkaline Phosphatase 143 U/L High 45-117 Bilirubin,Total 0.3 mg/dL Normal 0.2-1.0 Bilirubin,Direct 0.1 mg/dL Normal 0.0-0.2 Total Protein 6.5 GM/DL Normal 6.4-8.2 Albumin 2.4 GM/DL Low 3.2-5.2 Albumin/Globulin Ratio 0.6 Normal Laboratory test finding 06/20/2021 [facility] [address] [place] [address] [phone] NT-Pro BNP 698 pg/mL High <450 Thyroid Stimulating Hormone 0.820 uIU/ML Normal 0.358-3.740 Influenza A/B RSV Covid Amp 06/20/2021 [facility] [address] [place] [address] [phone] Influenza A Amplification NEGATIVE Normal Negati ve 2 Influenza B Amplification NEGATIVE Normal Negative 3 RSV Amplification NEGATIVE Normal Negative 4 Sars Covid-19 Amplification NEGATIVE Normal Negative 5 Arterial Blood Gas 06/20/2021 [facility] nter [address] [place] [address] [phone] ABG pH (Arterial) 7.471 units High 7.350-7.450 ABG Partial Pressure Co2 38.5 mmHg Normal 35.0-45.0 ABG Partial Pressure O2 107.9 mmHg High 75.0-100.0 ABG Total Co2 28.6 mEq/L Normal 23.0-31.0 ABG Hco3 27.5 mEq/L High 22.0-26.0 ABG Base Excess 3.6 High -2.0-2.0 ABG Standard Hco3 27.7 mEq/L High 22.0-26.0 ABG O2 Saturation 98.3 % Normal 95.0-99.0 Complete Blood Count 06/19/2021 [facility] Currency Examiner: [place] [address] [phone] WBC 10.3 x10*3/UL 4.1 - 10.9 RBC [...] 2.0 - 7.8 Comprehensive Chem Profile 06/19/2021 [facility] Currency Examiner: [place] [address] [phone] Glucose 149 mg/dL High 74 - 99 [...] mL/min >60 8 Complete Blood Count 05/09/2021 [facility] [facility] maxi spencer Currency Examiner: [place] [address] [phone] WBC 16.6 x10*3/UL High 4.1 - 10.9 [...] 2.0 - 7.8 Basic Metabolic Panel 05/09/2021 [facility] Currency Examiner: [place] [address] [phone] Glucose 87 mg/dL 74 - 99 10 [...] mL/min >60 12 Laboratory test finding 04/28/[address] [address] [phone] Platelet Estimate NORMAL Normal Normal Laboratory test finding 04/28/[address] [address] [phone] NT-Pro BNP 2940 pg/mL High <450 Thyroxine (T4) 6.4 g/dL Normal 4.5-12.0 Thyroid Stimulating Hormone 1.020 uIU/ML Normal 0.358-3.740 Basic Metabolic Profile 04/28/[address] [address] [phone] Glucose, Fasting 125 mg/dL High 70-100 Blood [...] 8.3 mg/dL Low 8.8-10.2 Liver Profile 04/28/[address] [address] [phone] Ast/Sgot 33 U/L Normal 7-37 Alt/SGPT 56 U/L Normal 12-78 Alkaline Phosphatase 78 U/L Normal 45-117 Bilirubin,Total 0.5 mg/dL Normal 0.2-1.0 Bilirubin,Direct 0.2 mg/dL Normal 0.0-0.2 Total Protein 6.2 GM/DL Low 6.4-8.2 Albumin 2.2 GM/DL Low 3.2-5.2 Albumin/Globulin Ratio 0.6 Normal Cardiac Marker Panel 04/28/[address] [address] [phone] CPK Creatine Phosphokinase 143 U/L Normal 39-30 8 CK-MB Value Mass 3.2 NG/ML Normal <3.6 MB/CK Relative Index 2.24 Normal < Or =4 14 Troponin I 0.07 NG/ML Normal < 0.10 15 Laboratory test finding 04/28/[address] [address] [phone] Lactic Acid Sepsis Protocol 1.6 mmol/L Normal 0.4- 2.0 16 Venous Blood Gas 04/28/[address] [address] [phone] Venous PH 7.424 units Normal 7.330-7.430 Venous Partial Pressure Co2 33.9 mmHg Low 38.0-50.0 Venous Partial Pressure O2 65.4 mmHg High 30.0-50.0 Venous Total Co2 22.7 mEq/L Low 24.0-28.0 Venous Hco3 21.7 mEq/L Low 23.0-27.0 Venous Base Excess -2.0 Normal -2.0-2.0 Venous Standard Hco3 22.7 mEq/L Normal Venous O2 Saturation 92.9 % High 60.0-80.0 Respiratory Panel 04/28/[address] [address] [phone] Respiratory Panel This respiratory <SEE NOTE> 17 Differential 04/28/2021 [facility] nter [address] [place] [address] [phone] Neutrophils 62 % Normal 28-66 Bands 30 % High < 11 Lymphocytes 1 % Low 16-44 Monocytes 5 % Normal 0-5 Eosinophils 2 % Normal 0-3 Anisocytosis 1+ Normal Microcytosis 2+ Normal CBC With Differential 04/28/[address] [address] [phone] White Blood Count 21.6 10 High 4.0-10.0 [...] % Normal 0-0 Coronavirus 2019 Nasopharygeal 04/05/[address] [address] [phone] Coronavirus 2019 Nasopharygeal NOTE: The COVID- <SEE N OTE> 18 Complete Blood Count 01/12/2021 [facility] Currency Examiner: [place] [address] [phone] WBC 11.9 x10*3/UL High 4.1 - 10.9 [...] - 7.8 Total Iron Binding Capacit 01/12/2021 [facility] [address] [place], [place] [address] [phone] Iron (Fe) 92 g/dL Normal 65-175 Total Iron Binding Capacity 318 g/dL Normal 250-450 Percent Saturation 28.9 % Normal 19.7-50.0 Laboratory test finding 12/28/2020 [facility] Currency Examiner: [place] [address] [phone] Fecal Immunochemical Test POSITIVE Abnormal Negati ve Total Iron Binding Capacit 12/25/2020 [facility] [address] [place], [place] [address] [phone] Iron (Fe) 40 g/dL Low 65-175 Total Iron Binding Capacity 350 g/dL Normal 250-450 Percent Saturation 11.4 % Low 19.7-50.0 Complete Blood Count 12/25/2020 [facility] Currency Examiner: [place] [address] [phone] WBC 10.8 x10*3/UL 4.1 - 10.9 RBC [...] pathogens. DISCLAIMER: Testing was performed using the [facility] SARS-CoV-2 test. This test was developed and its performance characteristics determined by [facility]. This test has not been FDA cleared [...] LITTLE GFR LEFT ESRD GFR <15 ON COLLEGE ARCHIVIST 9 NOTE: RESULT VERIFIED. 10 100-125 mg/dL PRE-DIABET ES/FASTING >126 mg/dL DIABETES/FASTING 11 NOTE: RESULT VERIFIED. 12 CHRONIC KIDNEY DISEASE STAGI NG PER NKF STAGE I & II GFR >= 60 NORMAL TO MILDLY DECREASED STAGE III GFR 30-59 MODERATELY DECREASED STAGE IV GFR 15-29 SEVERELY DECREASED STAGE V GFR <15 VERY LITTLE GFR LEFT ESRD GFR <15 ON COLLEGE ARCHIVIST 13 Units are mL/min/1.73 m2 Chronic Kidney Disease Staging per NKF: Stage I & II GFR >=60 Normal to Mildly Decreased Stage III GFR 30-59 Moderately Decreased Stage IV GFR 15-29 Severely Decreased Stage V GFR <15 Very Little GFR Left ESRD GFR <15 on COLLEGE ARCHIVIST 14 DIAGNOSIS CRITERIA MMB ng/ml Relative Index (RI) NON-AMI < or = 5 N/A MONTEMAYOR ZONE > 5 < or = 4 AMI > 5 > 4 15 Troponin I Reference Interva l for [facility] LOCI: 99th Percentile= 0.00-0.045 ng/ml Risk Stratification: [...] by the U.S. Food and Drug Administration. [facility] is designated as a high complexity laboratory by the Clinical Laboratory Improvement Amendments of 1988(CLIA) and is qualified to perform this test. ASSAY INFORMATION: Real Time RT-PCR or TMA. Both RT-PCR and TMA are molecular testing modalities and are recommended by the CDC for passenger travel. Not Detected 19 NOTE: cbc verified 20 NOTE: RESULT VERIFIED. Procedures Date Code Description Status 06/19/2021 87015 Office/Outpatient Established Mo d MDM 30-39 Min Completed 05/23/2021 90607 Office/Outpatient Established Mo d MDM 30-39 Min Completed 05/09/2021 50509 [facility] SRV W/I 7 Days Of DC, C omm W/I 2 Dys Med Rec Completed 12/25/2020 83620 Office/Outpatient Established Mo d MDM 30-39 Min Completed 03/22/2016 [id number] Colonoscopy Completed 02/03/2015 [id number] Colonoscopy Completed 01/06/2014 [id number] Colonoscopy Completed 05/24/2011 [id number] Colonoscopy Completed 04/21/2007 [id number] Colonoscopy Completed Medical Devices Description No Information Available Encounters Type Date Location Provider Dx Diagnosis Office Visit 06/19/2021 1:30p Chase Gerard MD J44.9 Chronic obstructive pulmonary disease, u nspecified J47.9 Bronchiectasis, uncomplicate d J96.11 Chronic respiratory failure with hypoxia Z79.52 watermaster (current) use of s ystemic steroids G47.33 Obstructive sleep apnea (maryann lt) (pediatric) J18.1 Lobar pneumonia, unspecified organism I95.1 Orthostatic hypotension D64.9 Anemia, unspecified Office Visit 05/23/2021 10:40a [facility] MD J44.9 Chronic obstructive pulmonary disease, u nspecified J96.11 Chronic respiratory failure with hypoxia D64.9 Anemia, unspecified G47.33 Obstructive sleep apnea (maryann lt) (pediatric) Z79.52 snf (current) use of s ystemic steroids E78.00 Pure hypercholesterolemia, u nspecified I95.1 Orthostatic hypotension Office Visit 05/09/2021 9:40a [facility] [place] J18.1 Lobar pneumonia, unspecified organism I10 Essential (primary) hyperten zac J44.9 Chronic obstructive pulmonar y disease, unspecified G47.33 Obstructive sleep apnea (maryann lt) (pediatric) D64.9 Anemia, unspecified J96.11 Chronic respiratory failure with hypoxia M48.061 Spinal stenosis, lumbar rebecca on without neurogenic douglas Z79.52 watermaster (current) use of s ystemic steroids Office Visit 12/25/2020 1:00p [facility] Deras MD D64.9 Anemia, unspecified I10 Essential (primary) hyperten zac E78.00 Pure hypercholesterolemia, u nspecified G47.33 Obstructive sleep apnea (maryann lt) (pediatric) J44.9 Chronic obstructive pulmonar y disease, unspecified Z79.52 snf (current) use of s ystemic steroids J96.11 [...] with hypoxia Arron Deras MD 06/19/2021 Z79.52 watermaster (current) use of syste clint steroids Arron [...] (adult) (pediatric) Arron Deras MD 05/23/2021 Z79.52 snf (current) use of syste clint steroids Arron [...] neurogenic claudication HINA Penn JR 05/09/2021 Z79.52 watermaster (current) use of syste clint steroids HINA [...] sease, unspecified Arron Deras MD 12/25/2020 Z79.52 snf (current) use of syste clint steroids Arron [...] 11:40 am - Arron Deras MD at [facility] 06/19/2021 - Arron Deras MD* J44.9 Chronic obstructive pulmonary disease, unspecified * J47.9 Bronchiectasis, uncomplicated * J96.11 Chronic respiratory failure with hypoxia * Z79.52 snf (current) use of systemic steroids * G47.33 [...] DX : NEW ONSET FELICE Closed 03/12/2021 [facility] Medical Practice [address] [address] [phone]
--- OUTSIDE RECORDS SUMMARY | 2021-09-10 11:53 | CCD ---
Continuity of Care Document (CCD) Created on: 06/19/2021 Shukri Cheek External Reference #: [id number] : [id number] Sex: Male Author Author Shukri Deras MD Organization Unknown Address [address] [facility] [address] [place] [address] Phone [phone] Care Team Providers Care Feed Management Advisor Name Role Phone Bentley Thacker MD AUTM [phone] Arron Deras JR, MD AUTM Unavailable [facility] AUTM [phone] Trino Betancourt MD AUTM [phone] Raciel Gill MD AUTM [phone] Morales Jade MD AUTM [phone] Bhavin Stanton MD AUTM [phone] Guero Norman MD AUTM [phone] [facility] AUTM [phone] [facility] AUTM [phone] Problems Active Problems Provider Date Benign essential [...] daily 60tabs Arron Deras MD 12/26/2020 Nystatin 639127Yaru/ML Suspension swish and spit 5ml as needed [...] Given 07/20/2020 Influenza,Unspecified U-Flu Given 07/19/2019 Influenza,Unspecified 36323 Given 07/17/2018 Shingrix Zoster Vaccine (HZV), Recombinant, Subunit, Adjuvanted U-Flu Given 07/08/2018 Influenza,Unspecified 15329 Given 02/24/2018 Shingrix 47055 Given 10/21/2016 Pneumovax 23 [id number] U-PneuC Given 10/14/2015 Prevnar 13 Q2037 Given 08/08/2015 Fluvirin Virus Vaccine 96957 01 47912 Given 03/31/2008 Zoster Vaccine 47841 Given 08/18/2007 Influenza Virus Vaccine 82102 Given 10/09/2006 Influenza Virus Vaccine 89100 Given 09/26/2006 Pneumovax 23 43208 Given 08/21/2005 Influenza Virus Vaccine 49468 Given 08/27/2004 Influenza Virus Vaccine 11084 Given 08/16/2003 Influenza Virus Vaccine 54289 Given 10/01/2002 Influenza Virus Vaccine 20620 Given 05/25/1998 Tetanus Toxoid 16274 Refused 08/19/2018 Influenza Virus Vaccine, Quadrivalent (Cciiv4), [...] H/L Range Note Comprehensive Chem Profile 06/19/2021 [facility] Lactation Nurse: Dr Arron Deras [place], [place] [address] [phone] Glucose 149 mg/dL High 74 - 99 [...] mL/min >60 2 Complete Blood Count 06/19/2021 [facility] Lactation Nurse: [place] [address] [phone] WBC 10.3 x10*3/UL 4.1 - 10.9 RBC [...] 2.0 - 7.8 Complete Blood Count 05/09/2021 [facility] Lactation Nurse: [place] [address] [phone] WBC 16.6 x10*3/UL High 4.1 - 10.9 [...] 2.0 - 7.8 Basic Metabolic Panel 05/09/2021 [facility] Lactation Nurse: Dr Arron Deras [place], [place] [address] [phone] Glucose 87 mg/dL 74 - 99 5 [...] mL/min >60 7 Cardiac Marker Panel 04/28/[address] [address] [phone] CPK Creatine Phosphokinase 143 U/L Normal 39-30 8 CK-MB Value Mass 3.2 NG/ML Normal <3.6 MB/CK Relative Index 2.24 Normal < Or =4 8 Troponin I 0.07 NG/ML Normal < 0.10 9 Laboratory test finding 04/28/[address] [address] [phone] NT-Pro BNP 2940 pg/mL High <450 Thyroxine (T4) 6.4 g/dL Normal 4.5-12.0 Thyroid Stimulating Hormone 1.020 uIU/ML Normal 0.358-3.740 Basic Metabolic Profile 04/28/[address] [address] [phone] Glucose, Fasting 125 mg/dL High 70-100 Blood [...] 8.3 mg/dL Low 8.8-10.2 Liver Profile 04/28/[address] [address] [phone] Ast/Sgot 33 U/L Normal 7-37 Alt/SGPT 56 U/L Normal 12-78 Alkaline Phosphatase 78 U/L Normal 45-117 Bilirubin,Total 0.5 mg/dL Normal 0.2-1.0 Bilirubin,Direct 0.2 mg/dL Normal 0.0-0.2 Total Protein 6.2 GM/DL Low 6.4-8.2 Albumin 2.2 GM/DL Low 3.2-5.2 Albumin/Globulin Ratio 0.6 Normal Laboratory test finding 04/28/[address] [address] [phone] Lactic Acid Sepsis Protocol 1.6 mmol/L Normal 0.4- 2.0 11 Venous Blood Gas 04/28/[address] [address] [phone] Venous PH 7.424 units Normal 7.330-7.430 Venous Partial Pressure Co2 33.9 mmHg Low 38.0-50.0 Venous Partial Pressure O2 65.4 mmHg High 30.0-50.0 Venous Total Co2 22.7 mEq/L Low 24.0-28.0 Venous Hco3 21.7 mEq/L Low 23.0-27.0 Venous Base Excess -2.0 Normal -2.0-2.0 Venous Standard Hco3 22.7 mEq/L Normal Venous O2 Saturation 92.9 % High 60.0-80.0 Respiratory Panel 04/28/2021 [facility] nter [address] [place] [address] [phone] Respiratory Panel This respiratory <SEE NOTE> 12 Laboratory test finding 04/28/[address] [address] [phone] Platelet Estimate NORMAL Normal Normal Differential 04/28/2021 [facility] nter [address] [place] [id number] [phone] Neutrophils 62 % Normal 28-66 Bands 30 % High < 11 Lymphocytes 1 % Low 16-44 Monocytes 5 % Normal 0-5 Eosinophils 2 % Normal 0-3 Anisocytosis 1+ Normal Microcytosis 2+ Normal CBC With Differential 04/28/2021 [place] [address] [phone] White Blood Count 21.6 10 High 4.0-10.0 [...] % Normal 0-0 Coronavirus 2019 Nasopharygeal 04/05/2021 [place] 1342144 [phone] Coronavirus 2019 Nasopharygeal NOTE: The COVID- <SEE N OTE> 13 Complete Blood Count 01/12/2021 [facility] Lactation Nurse: [place] [address] [phone] WBC 11.9 x10*3/UL High 4.1 - 10.9 [...] - 7.8 Total Iron Binding Capacit 01/12/2021 [facility] [address] 2982303 [phone] Iron (Fe) 92 g/dL Normal 65-175 Total Iron Binding Capacity 318 g/dL Normal 250-450 Percent Saturation 28.9 % Normal 19.7-50.0 Laboratory test finding 12/28/2020 [facility] [employer] maxi kellogg Lactation Nurse: [place] [address] [phone] Fecal Immunochemical Test POSITIVE Abnormal Negati ve Total Iron Binding Capacit 12/25/[address] [address] [phone] Iron (Fe) 40 g/dL Low 65-175 Total Iron Binding Capacity 350 g/dL Normal 250-450 Percent Saturation 11.4 % Low 19.7-50.0 Complete Blood Count 12/25/2020 [facility] Lactation Nurse: Dr Arron Deras [place] 6162158 [phone] WBC 10.8 x10*3/UL 4.1 - 10.9 RBC [...] LITTLE GFR LEFT ESRD GFR <15 ON SPICE BLENDER 3 NOTE: RESULT VERIFIED. 4 NOTE: RESULT VERIFIED. 5 100-125 mg/dL PRE-DIABET ES/FASTING >126 mg/dL DIABETES/FASTING 6 NOTE: RESULT VERIFIED. 7 CHRONIC KIDNEY DISEASE STAGI NG PER NKF STAGE I & II GFR >= 60 NORMAL TO MILDLY DECREASED STAGE III GFR 30-59 MODERATELY DECREASED STAGE IV GFR 15-29 SEVERELY DECREASED STAGE V GFR <15 VERY LITTLE GFR LEFT ESRD GFR <15 ON SPICE BLENDER 8 DIAGNOSIS CRITERIA MMB ng/ml Relative Index (RI) NON-AMI < or = 5 N/A MONTEMAYOR ZONE > 5 < or = 4 AMI > 5 > 4 9 Troponin I Reference Interva l for [facility] [employer] LOCI: 99th Percentile= 0.00-0.045 ng/ml Risk Stratification: [...] Little GFR Left ESRD GFR <15 on SPICE BLENDER 11 Y/N query for Sepsis Lactate Rule: [...] by the U.S. Food and Drug Administration. [facility] is designated as a high complexity laboratory by the Clinical Laboratory Improvement Amendments of 1988(CLIA) and is qualified to perform this test. ASSAY INFORMATION: Real Time RT-PCR or TMA. Both RT-PCR and TMA are molecular testing modalities and are recommended by the CDC for passenger travel. Not Detected 14 NOTE: cbc verified 15 NOTE: RESULT VERIFIED. Procedures Date Code Description Status 05/23/2021 06897 Office/Outpatient Established Mo d MDM 30-39 Min Completed 05/09/2021 15963 [facility] SRV W/I 7 Days Of DC, C omm W/I 2 Dys Med Rec Completed 12/25/2020 83808 Office/Outpatient Established Mo d MDM 30-39 Min Completed 03/22/2016 [id number] Colonoscopy Completed 02/03/2015 [id number] Colonoscopy Completed 01/06/2014 [id number] Colonoscopy Completed 05/24/2011 [id number] Colonoscopy Completed 04/21/2007 [id number] Colonoscopy Completed Medical Devices Description No Information Available Encounters Type Date Location Provider Dx Diagnosis Office Visit 05/23/2021 10:40a [facility] J44.9 Chronic obstructive pulmonary disease, u nspecified J96.11 Chronic respiratory failure with hypoxia D64.9 Anemia, unspecified G47.33 Obstructive sleep apnea (maryann lt) (pediatric) Z79.52 termite exterminator 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 of s ystemic steroids E78.00 Pure hypercholesterolemia, u nspecified I95.1 Orthostatic hypotension Office Visit 05/09/2021 9:40a [facility], [place] J18.1 Lobar pneumonia, unspecified organism I10 Essential (primary) hyperten zac J44.9 Chronic obstructive pulmonar y disease, unspecified G47.33 Obstructive sleep apnea (maryann lt) (pediatric) D64.9 Anemia, unspecified J96.11 Chronic respiratory failure with hypoxia M48.061 Spinal stenosis, lumbar rebecca on without neurogenic douglas Z79.52 termite exterminator 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 of s ystemic steroids Office Visit 12/25/2020 1:00p [facility] Deras MD D64.9 Anemia, unspecified I10 Essential (primary) hyperten zac E78.00 Pure hypercholesterolemia, u nspecified G47.33 Obstructive sleep apnea (maryann lt) (pediatric) J44.9 Chronic obstructive pulmonar y disease, unspecified Z79.52 termite exterminator 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 of s ystemic steroids J96.11 [...] with hypoxia Arron Deras MD 06/19/2021 Z79.52 intermediate (current) use of syste clint steroids Arron Deras MD 06/19/2021 G47.33 Obstructive sleep apnea (adult) (pediatric) Arron Deras MD 06/19/2021 J18.1 Lobar pneumonia, unspecified org anism Arron Deras MD 06/19/2021 I95.1 Orthostatic hypotension Arron Deras MD 06/19/2021 D64.9 Anemia, unspecified Arron lao MD 05/23/2021 J44.9 Chronic obstructive pulmonary di sease, unspecified Arron Dears MD 05/23/2021 J96.11 Chronic respiratory failure with [...] claudication HINA Penn JR 05/09/2021 Z79.52 termite 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 clint [...] sease, unspecified Arron Deras MD 12/25/2020 Z79.52 termite 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 clint [...] 11:40 am - Arron Deras MD at [facility] 06/19/2021 - Arron Deras MD* J44.9 Chronic obstructive pulmonary disease, unspecified * J47.9 Bronchiectasis, uncomplicated * J96.11 Chronic respiratory failure with hypoxia * Z79.52 termite 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mic steroids * G47.33 [...] DX : NEW ONSET FELICE Closed 03/12/2021 [facility] Medical Practice [address] [address] [phone]
--- OUTSIDE RECORDS SUMMARY | 2021-09-10 11:53 | CCD | Continuity of Care Document ---
Author Author Shukri Deras MD Organization Unknown Address [address] [facility] [address] [place] [address] Phone [phone] Care Team Providers Care Mortgage Coordinator Name Role Phone Bentley Thacker MD AUTM [phone] Arron Deras JR, MD AUTM Unavailable [facility] AUTM [phone] Trino Betancourt MD AUTM [phone] Raciel Gill MD AUTM [phone] Morales aJde MD AUTM [phone] Bhavin Stanton MD AUTM [phone] Guero Norman MD AUTM [phone] [facility] AUTM [phone] [facility]a AUTM [phone] Problems Active Problems Provider Date Benign essential [...] daily 60tabs Arron Deras MD 12/26/2020 Nystatin 071078Knly/ML Suspension swish and spit 5ml as needed [...] Given 07/20/2020 Influenza,Unspecified U-Flu Given 07/19/2019 Influenza,Unspecified 52568 Given 07/17/2018 Shingrix Zoster Vaccine (HZV), Recombinant, Subunit, Adjuvanted U-Flu Given 07/08/2018 Influenza,Unspecified 61691 Given 02/24/2018 Shingrix 48634 Given 10/21/2016 Pneumovax 23 [id number] U-PneuC Given 10/14/2015 Prevnar 13 Q2037 Given 08/08/2015 Fluvirin Virus Vaccine 27496 01 93674 Given 03/31/2008 Zoster Vaccine 39047 Given 08/18/2007 Influenza Virus Vaccine 06705 Given 10/09/2006 Influenza Virus Vaccine 55325 Given 09/26/2006 Pneumovax 23 95346 Given 08/21/2005 Influenza Virus Vaccine 80876 Given 08/27/2004 Influenza Virus Vaccine 92150 Given 08/16/2003 Influenza Virus Vaccine 76914 Given 10/01/2002 Influenza Virus Vaccine 09971 Given 05/25/1998 Tetanus Toxoid 64504 Refused 08/19/2018 Influenza Virus Vaccine, Quadrivalent (Cciiv4), [...] H/L Range Note Comprehensive Chem Profile 06/19/2021 [facility] Keno Dealer: Dr Arron Deras [place], [place] [id number] [phone] Glucose 149 mg/dL High 74 - 99 [...] mL/min >60 2 Complete Blood Count 06/19/2021 [facility] Keno Dealer: [place] [address] [phone] WBC 10.3 x10*3/UL 4.1 - 10.9 RBC [...] 2.0 - 7.8 Complete Blood Count 05/09/2021 [facility] Keno Dealer: [place] [address] [phone] WBC 16.6 x10*3/UL High 4.1 - 10.9 [...] 2.0 - 7.8 Basic Metabolic Panel 05/09/2021 [facility] Keno Dealer: Dr Arron Deras [place], [place] [id number] [phone] Glucose 87 mg/dL 74 - 99 5 [...] mL/min >60 7 Cardiac Marker Panel 04/28/[address] [address] [phone] CPK Creatine Phosphokinase 143 U/L Normal 39-30 8 CK-MB Value Mass 3.2 NG/ML Normal <3.6 MB/CK Relative Index 2.24 Normal < Or =4 8 Troponin I 0.07 NG/ML Normal < 0.10 9 Laboratory test finding 04/28/[address] [address] [phone] NT-Pro BNP 2940 pg/mL High <450 Thyroxine (T4) 6.4 g/dL Normal 4.5-12.0 Thyroid Stimulating Hormone 1.020 uIU/ML Normal 0.358-3.740 Basic Metabolic Profile 04/28/[address] [address] [phone] Glucose, Fasting 125 mg/dL High 70-100 Blood [...] 8.3 mg/dL Low 8.8-10.2 Liver Profile 04/28/[address] [address] [phone] Ast/Sgot 33 U/L Normal 7-37 Alt/SGPT 56 U/L Normal 12-78 Alkaline Phosphatase 78 U/L Normal 45-117 Bilirubin,Total 0.5 mg/dL Normal 0.2-1.0 Bilirubin,Direct 0.2 mg/dL Normal 0.0-0.2 Total Protein 6.2 GM/DL Low 6.4-8.2 Albumin 2.2 GM/DL Low 3.2-5.2 Albumin/Globulin Ratio 0.6 Normal Laboratory test finding 04/28/[address] [address] [phone] Lactic Acid Sepsis Protocol 1.6 mmol/L Normal 0.4- 2.0 11 Venous Blood Gas 04/28/[address] [address] [phone] Venous PH 7.424 units Normal 7.330-7.430 Venous Partial Pressure Co2 33.9 mmHg Low 38.0-50.0 Venous Partial Pressure O2 65.4 mmHg High 30.0-50.0 Venous Total Co2 22.7 mEq/L Low 24.0-28.0 Venous Hco3 21.7 mEq/L Low 23.0-27.0 Venous Base Excess -2.0 Normal -2.0-2.0 Venous Standard Hco3 22.7 mEq/L Normal Venous O2 Saturation 92.9 % High 60.0-80.0 Respiratory Panel 04/28/2021 [facility] nter [address] [place] [address] [phone] Respiratory Panel This respiratory <SEE NOTE> 12 Laboratory test finding 04/28/[address] [address] [phone] Platelet Estimate NORMAL Normal Normal Differential 04/28/2021 [facility] nter [address] [place] [id number] [phone] Neutrophils 62 % Normal 28-66 Bands 30 % High < 11 Lymphocytes 1 % Low 16-44 Monocytes 5 % Normal 0-5 Eosinophils 2 % Normal 0-3 Anisocytosis 1+ Normal Microcytosis 2+ Normal CBC With Differential 04/28/2021 [place] [address] [phone] White Blood Count 21.6 10 High 4.0-10.0 [...] % Normal 0-0 Coronavirus 2019 Nasopharygeal 04/05/2021 [place] [id number] [phone] Coronavirus 2019 Nasopharygeal NOTE: The COVID- <SEE N OTE> 13 Complete Blood Count 01/12/2021 [facility] Keno Dealer: [place] [address] [phone] WBC 11.9 x10*3/UL High 4.1 - 10.9 [...] - 7.8 Total Iron Binding Capacit 01/12/2021 [facility] [address] [place] [id number] [phone] Iron (Fe) 92 g/dL Normal 65-175 Total Iron Binding Capacity 318 g/dL Normal 250-450 Percent Saturation 28.9 % Normal 19.7-50.0 Laboratory test finding 12/28/2020 [facility] maxi [facility]ellogg Keno Dealer: [place] [address] [phone] Fecal Immunochemical Test POSITIVE Abnormal Negati ve Total Iron Binding Capacit 12/25/[address] [address] [phone] Iron (Fe) 40 g/dL Low 65-175 Total Iron Binding Capacity 350 g/dL Normal 250-450 Percent Saturation 11.4 % Low 19.7-50.0 Complete Blood Count 12/25/2020 [facility] Keno Dealer: Dr Arron Deras [place] [id number] [phone] WBC 10.8 x10*3/UL 4.1 - 10.9 RBC [...] LITTLE GFR LEFT ESRD GFR <15 ON CARDING UTILITY TENDER 3 NOTE: RESULT VERIFIED. 4 NOTE: RESULT VERIFIED. 5 100-125 mg/dL PRE-DIABET ES/FASTING >126 mg/dL DIABETES/FASTING 6 NOTE: RESULT VERIFIED. 7 CHRONIC KIDNEY DISEASE STAGI NG PER NKF STAGE I & II GFR >= 60 NORMAL TO MILDLY DECREASED STAGE III GFR 30-59 MODERATELY DECREASED STAGE IV GFR 15-29 SEVERELY DECREASED STAGE V GFR <15 VERY LITTLE GFR LEFT ESRD GFR <15 ON CARDING UTILITY TENDER 8 DIAGNOSIS CRITERIA MMB ng/ml Relative Index (RI) NON-AMI < or = 5 N/A MONTEMAYOR ZONE > 5 < or = 4 AMI > 5 > 4 9 Troponin I Reference Interva l for Siemens fg microtec LOCI: 99th Percentile= 0.00-0.045 ng/ml Risk Stratification: [...] Little GFR Left ESRD GFR <15 on CARDING UTILITY TENDER 11 Y/N query for Sepsis Lactate Rule: [...] by the U.S. Food and Drug Administration. [facility] is designated as a high complexity laboratory by the Clinical Laboratory Improvement Amendments of 1988(CLIA) and is qualified to perform this test. ASSAY INFORMATION: Real Time RT-PCR or TMA. Both RT-PCR and TMA are molecular testing modalities and are recommended by the CDC for passenger travel. Not Detected 14 NOTE: cbc verified 15 NOTE: RESULT VERIFIED. Procedures Date Code Description Status 05/23/2021 14897 Office/Outpatient Established Mo d MDM 30-39 Min Completed 05/09/2021 15550 [facility] SRV W/I 7 Days Of DC, C omm W/I 2 Dys Med Rec Completed 12/25/2020 50025 Office/Outpatient Established Mo d MDM 30-39 Min Completed 03/22/2016 [id number] Colonoscopy Completed 02/03/2015 [id number] Colonoscopy Completed 01/06/2014 [id number] Colonoscopy Completed 05/24/2011 [id number] Colonoscopy Completed 04/21/2007 [id number] Colonoscopy Completed Medical Devices Description No Information Available Encounters Type Date Location Provider Dx Diagnosis Office Visit 05/23/2021 [facility] J44.9 Chronic obstructive pulmonary disease, u nspecified J96.11 Chronic respiratory failure with hypoxia D64.9 Anemia, unspecified G47.33 Obstructive sleep apnea (maryann lt) (pediatric) Z79.52 predatory animal exterminator (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) use of s ystemic steroids E78.00 Pure hypercholesterolemia, u nspecified I95.1 Orthostatic hypotension Office Visit 05/09/2021 9[facility]a [facility] [place] J18.1 Lobar pneumonia, unspecified organism I10 Essential (primary) hyperten zac J44.9 Chronic obstructive pulmonar y disease, unspecified G47.33 Obstructive sleep apnea (maryann lt) (pediatric) D64.9 Anemia, unspecified J96.11 Chronic respiratory failure with hypoxia M48.061 Spinal stenosis, lumbar rebecca on without neurogenic douglas Z79.52 predatory animal exterminator (current) use of s ystemic steroids Office Visit 12/25/2020 1:00p [facility] Deras MD D64.9 Anemia, unspecified I10 Essential (primary) hyperten zac E78.00 Pure hypercholesterolemia, u nspecified G47.33 Obstructive sleep apnea (maryann lt) (pediatric) J44.9 Chronic obstructive pulmonar y disease, unspecified Z79.52 predatory animal exterminator (current) use of s ystemic steroids J96.11 [...] with hypoxia Arron Deras MD 06/19/2021 Z79.52 [facility] (current) use of syste clint steroids Arron [...] (adult) (pediatric) Arron Deras MD 05/23/2021 Z79.52 [facility] (current) use of syste clint steroids Arron [...] neurogenic claudication HINA Penn JR 05/09/2021 Z79.52 predatory animal exterminator (current) use of syste clint steroids [...] sease, unspecified Arron Deras MD 12/25/2020 Z79.52 predatory animal exterminator (current) use of syste clint steroids [...] 11:40 am - Arron Deras MD at [facility] 06/19/2021 - Arorn Deras MD* J44.9 Chronic obstructive pulmonary disease, unspecified * J47.9 Bronchiectasis, uncomplicated * J96.11 Chronic respiratory failure with hypoxia * Z79.52 predatory animal exterminator (current) use of systemic steroids * [...] Closed 03/12/2021 [facility] Medical Practice [address] [place] [address] [phone]
--- OUTSIDE RECORDS SUMMARY | 2021-09-10 11:53 | CCD | Continuity of Care Document ---
Author Author Shukri Deras MD Organization Unknown Address [address] [facility] [address] [place] [address] Phone [phone] Care Team Providers Care Engineering Technical Writer Name Role Phone Bentley Thacker MD AUTM [phone] Arron Deras JR, MD AUTM Unavailable [facility] AUTM [phone] Trino Betancourt MD AUTM [phone] Raciel Gill MD AUTM [phone] Morales Jade MD AUTM [phone] Bhavin Stanton MD AUTM [phone] Guero Norman MD AUTM [phone] [facility] AUTM [phone] [facility] Hea AUTM [phone] Problems Active Problems Provider Date Benign essential [...] daily 60tabs Arron Deras MD 12/26/2020 Nystatin 049935Uogw/ML Suspension swish and spit 5ml as needed [...] Given 07/20/2020 Influenza,Unspecified U-Flu Given 07/19/2019 Influenza,Unspecified 40025 Given 07/17/2018 Shingrix Zoster Vaccine (HZV), Recombinant, Subunit, Adjuvanted U-Flu Given 07/08/2018 Influenza,Unspecified 26825 Given 02/24/2018 Shingrix 19738 Given 10/21/2016 Pneumovax 23 [id number] U-PneuC Given 10/14/2015 Prevnar 13 Q2037 Given 08/08/2015 Fluvirin Virus Vaccine 72279 01 57351 Given 03/31/2008 Zoster Vaccine 59200 Given 08/18/2007 Influenza Virus Vaccine 95587 Given 10/09/2006 Influenza Virus Vaccine 59724 Given 09/26/2006 Pneumovax 23 22557 Given 08/21/2005 Influenza Virus Vaccine 52705 Given 08/27/2004 Influenza Virus Vaccine 99491 Given 08/16/2003 Influenza Virus Vaccine 47556 Given 10/01/2002 Influenza Virus Vaccine 98973 Given 05/25/1998 Tetanus Toxoid 71295 Refused 08/19/2018 Influenza Virus Vaccine, Quadrivalent (Cciiv4), [...] H/L Range Note Comprehensive Chem Profile 06/19/2021 [facility] [place] Custodian: Dr Arron Deras [place], [place] [id number] [phone] Glucose 149 mg/dL High 74 - 99 [...] mL/min >60 2 Complete Blood Count 06/19/2021 [facility] [place] Custodian: [place] [address] [phone] WBC 10.3 x10*3/UL 4.1 - 10.9 RBC [...] 2.0 - 7.8 Complete Blood Count 05/09/2021 [facility] [place] Custodian: [place] [address] [phone] WBC 16.6 x10*3/UL High 4.1 - 10.9 [...] 2.0 - 7.8 Basic Metabolic Panel 05/09/2021 [facility] [place] Custodian: Dr Arron Deras [place], [place] [address]21 [phone] Glucose 87 mg/dL 74 - 99 5 [...] >60 7 Cardiac Marker Panel 04/28/[address] [address] [phone] CPK Creatine Phosphokinase 143 U/L Normal 39-30 8 CK-MB Value Mass 3.2 NG/ML Normal <3.6 MB/CK Relative Index 2.24 Normal < Or =4 8 Troponin I 0.07 NG/ML Normal < 0.10 9 Laboratory test finding 04/28/[address] [address] [phone] NT-Pro BNP 2940 pg/mL High <450 Thyroxine (T4) 6.4 g/dL Normal 4.5-12.0 Thyroid Stimulating Hormone 1.020 uIU/ML Normal 0.358-3.740 Basic Metabolic Profile 04/28/[address] [address] [phone] Glucose, Fasting 125 mg/dL High 70-100 Blood [...] 8.3 mg/dL Low 8.8-10.2 Liver Profile 04/28/[address] [address] [phone] Ast/Sgot 33 U/L Normal 7-37 Alt/SGPT 56 U/L Normal 12-78 Alkaline Phosphatase 78 U/L Normal 45-117 Bilirubin,Total 0.5 mg/dL Normal 0.2-1.0 Bilirubin,Direct 0.2 mg/dL Normal 0.0-0.2 Total Protein 6.2 GM/DL Low 6.4-8.2 Albumin 2.2 GM/DL Low 3.2-5.2 Albumin/Globulin Ratio 0.6 Normal Laboratory test finding 04/28/[address] [address] [phone] Lactic Acid Sepsis Protocol 1.6 mmol/L Normal 0.4- 2.0 11 Venous Blood Gas 04/28/[address] [address] [phone] Venous PH 7.424 units Normal 7.330-7.430 Venous Partial Pressure Co2 33.9 mmHg Low 38.0-50.0 Venous Partial Pressure O2 65.4 mmHg High 30.0-50.0 Venous Total Co2 22.7 mEq/L Low 24.0-28.0 Venous Hco3 21.7 mEq/L Low 23.0-27.0 Venous Base Excess -2.0 Normal -2.0-2.0 Venous Standard Hco3 22.7 mEq/L Normal Venous O2 Saturation 92.9 % High 60.0-80.0 Respiratory Panel 04/28/2021 [facility] nter [address] [place] [address] [phone] Respiratory Panel This respiratory <SEE NOTE> 12 Laboratory test finding 04/28/[address] [address] [phone] Platelet Estimate NORMAL Normal Normal Differential 04/28/2021 [facility] nter [address] [place] [address] [id number] [phone] Neutrophils 62 % Normal 28-66 Bands 30 % High < 11 Lymphocytes 1 % Low 16-44 Monocytes 5 % Normal 0-5 Eosinophils 2 % Normal 0-3 Anisocytosis 1+ Normal Microcytosis 2+ Normal CBC With Differential 04/28/2021 [place] [address] [phone] White Blood Count 21.6 10 High 4.0-10.0 [...] % Normal 0-0 Coronavirus 2019 Nasopharygeal 04/05/2021 [place] 0680411 [phone] Coronavirus 2019 Nasopharygeal NOTE: The COVID- <SEE N OTE> 13 Complete Blood Count 01/12/2021 [facility] [place] Custodian: [place] [address] [phone] WBC 11.9 x10*3/UL High 4.1 - 10.9 [...] - 7.8 Total Iron Binding Capacit 01/12/2021 [facility] [address] [place] 9934659 [phone] Iron (Fe) 92 g/dL Normal 65-175 Total Iron Binding Capacity 318 g/dL Normal 250-450 Percent Saturation 28.9 % Normal 19.7-50.0 Laboratory test finding 12/28/2020 [facility]ellogg [place] Custodian: [place] [address] [phone] Fecal Immunochemical Test POSITIVE Abnormal Negati ve Total Iron Binding Capacit 12/25/[address] [address] [phone] Iron (Fe) 40 g/dL Low 65-175 Total Iron Binding Capacity 350 g/dL Normal 250-450 Percent Saturation 11.4 % Low 19.7-50.0 Complete Blood Count 12/25/2020 [facility] [place] Custodian: Dr Arron Deras [place] 9408985 [phone] WBC 10.8 x10*3/UL 4.1 - 10.9 RBC [...] LITTLE GFR LEFT ESRD GFR <15 ON AMMONIA REFRIGERATION TECHNICIAN 3 NOTE: RESULT VERIFIED. 4 NOTE: RESULT VERIFIED. 5 100-125 mg/dL PRE-DIABET ES/FASTING >126 mg/dL DIABETES/FASTING 6 NOTE: RESULT VERIFIED. 7 CHRONIC KIDNEY DISEASE STAGI NG PER NKF STAGE I & II GFR >= 60 NORMAL TO MILDLY DECREASED STAGE III GFR 30-59 MODERATELY DECREASED STAGE IV GFR 15-29 SEVERELY DECREASED STAGE V GFR <15 VERY LITTLE GFR LEFT ESRD GFR <15 ON AMMONIA REFRIGERATION TECHNICIAN 8 DIAGNOSIS CRITERIA MMB ng/ml Relative Index (RI) NON-AMI < or = 5 N/A MONTEMAYOR ZONE > 5 < or = 4 AMI > 5 > 4 9 Troponin I Reference Interva l for Siemens [email or web address] LOCI: 99th Percentile= 0.00-0.045 ng/ml Risk Stratification: [...] Little GFR Left ESRD GFR <15 on AMMONIA REFRIGERATION TECHNICIAN 11 Y/N query for Sepsis Lactate Rule: [...] by the U.S. Food and Drug Administration. [facility] is designated as a high complexity laboratory by the Clinical Laboratory Improvement Amendments of 1988(CLIA) and is qualified to perform this test. ASSAY INFORMATION: Real Time RT-PCR or TMA. Both RT-PCR and TMA are molecular testing modalities and are recommended by the CDC for passenger travel. Not Detected 14 NOTE: cbc verified 15 NOTE: RESULT VERIFIED. Procedures Date Code Description Status 05/23/2021 41631 Office/Outpatient Established Mo d MDM 30-39 Min Completed 05/09/2021 22334 [facility] SRV W/I 7 Days Of DC, C omm W/I 2 Dys Med Rec Completed 12/25/2020 94784 Office/Outpatient Established Mo d MDM 30-39 Min Completed 03/22/2016 [id number] Colonoscopy Completed 02/03/2015 [id number] Colonoscopy Completed 01/06/2014 [id number] Colonoscopy Completed 05/24/2011 [id number] Colonoscopy Completed 04/21/2007 [id number] Colonoscopy Completed Medical Devices Description No Information Available Encounters Type Date Location Provider Dx Diagnosis Office Visit 05/23/2021 [facility] J44.9 Chronic obstructive pulmonary disease, u nspecified J96.11 Chronic respiratory failure with hypoxia D64.9 Anemia, unspecified G47.33 Obstructive sleep apnea (maryann lt) (pediatric) Z79.52 long term care pharmacist (current) use of s ystemic steroids E78.00 Pure hypercholesterolemia, u nspecified I95.1 Orthostatic hypotension Office Visit 05/09/2021 9:40a [facility], [place] J18.1 Lobar pneumonia, unspecified organism I10 Essential (primary) hyperten zac J44.9 Chronic obstructive pulmonar y disease, unspecified G47.33 Obstructive sleep apnea (maryann lt) (pediatric) D64.9 Anemia, unspecified J96.11 Chronic respiratory failure with hypoxia M48.061 Spinal stenosis, lumbar rebecca on without neurogenic douglas Z79.52 long term care pharmacist (current) use of s ystemic steroids Office Visit 12/25/2020 1:00p [facility] Deras MD D64.9 Anemia, unspecified I10 Essential (primary) hyperten zac E78.00 Pure hypercholesterolemia, u nspecified G47.33 Obstructive sleep apnea (maryann lt) (pediatric) J44.9 Chronic obstructive pulmonar y disease, unspecified Z79.52 long term care pharmacist (current) use of s ystemic steroids J96.11 [...] with hypoxia Arron Deras MD 06/19/2021 Z79.52 long-term (current) use of syste clint steroids Arron [...] (adult) (pediatric) Arron Deras MD 05/23/2021 Z79.52 long-term (current) use of syste clint steroids Arron [...] neurogenic claudication HINA Penn JR 05/09/2021 Z79.52 long term care pharmacist (current) use of syste clint steroids HINA [...] sease, unspecified Arron Deras MD 12/25/2020 Z79.52 long term care pharmacist (current) use of syste clint steroids Arron [...] 11:40 am - Arron Deras MD at [facility] 06/19/2021 - Arron Deras MD* J44.9 Chronic obstructive pulmonary disease, unspecified * J47.9 Bronchiectasis, uncomplicated * J96.11 Chronic respiratory failure with hypoxia * Z79.52 long term care pharmacist (current) use of systemic steroids * G47.33 [...] DX : [place]EL[place] Closed 03/12/2021 [facility] Medical [facility] [address] [address] [phone]
--- OUTSIDE RECORDS SUMMARY | 2021-09-10 11:55 | CCD ---
Author Author [facility] Organization [facility] Address Unknown Phone Unavailable Care Team Providers Care Bankruptcy Manager Name Role Phone Sharda Napier MD Unavailable Unavailable Sharda Napier MD Unavailable Unavailable Sharda Napier MD Unavailable Unavailable Sharda Napier MD Unavailable Unavailable Sharda Napier MD Unavailable Unavailable Sharda Napier MD Unavailable Unavailable Sharda Napier MD Unavailable Unavailable Sharda Napier MD Unavailable Unavailable Sharda Napier MD Unavailable Unavailable Sharda Napier MD Unavailable Unavailable Sharda Napier MD Unavailable Unavailable Sharda Napier MD Unavailable Unavailable Sharda aNpier MD Unavailable Unavailable Sharda Napier MD Unavailable Unavailable Sharda Napier MD Unavailable Unavailable Sharda Napier MD Unavailable Unavailable Sharda Napier MD Unavailable Unavailable Sharda Napier MD Unavailable Unavailable Sharda Napier MD Unavailable Unavailable Sharda Napier MD Unavailable Unavailable Sharda Napier MD Unavailable Unavailable Sharda Napier MD Unavailable Unavailable Sharda Napier MD Unavailable Unavailable Sharda Napier MD Unavailable Unavailable Sharda Napier MD Unavailable Unavailable Sharda Napier MD Unavailable Unavailable Sharda Napier MD Unavailable Unavailable Sharda Napier MD Unavailable Unavailable Sharda Napier MD Unavailable Unavailable Sharda Napier MD Unavailable Unavailable LETTIERE, A JOHNNIE PA Unavailable Unavailable LETTIERE, A JOHNNIE PA Unavailable Unavailable LETTIERE, A JOHNNIE PA Unavailable Unavailable LETTIERE, A JOHNNIE PA Unavailable Unavailable LETTIERE, A JOHNNIE PA Unavailable Unavailable LETTIERE, A JOHNNIE PA Unavailable Unavailable LETTIERE, A JOHNNIE PA Unavailable Unavailable LETTIERE, A JOHNNIE PA Unavailable Unavailable LETTIERE, A OJHNNIE PA Unavailable Unavailable LETTIERE, A JOHNNIE PA Unavailable Unavailable LETTIERE, A JOHNNIE PA Unavailable Unavailable LETTIERE, A JOHNNIE PA Unavailable Unavailable LETTIERE, A JOHNNIE PA Unavailable Unavailable LETTIERE, A JOHNNIE PA Unavailable Unavailable LETTIERE, A JOHNNIE PA Unavailable Unavailable LETTIERE, A JOHNNIE PA Unavailable Unavailable LETTIERE, A JOHNNIE PA Unavailable Unavailable LETTIERE, A JOHNNIE PA Unavailable Unavailable LETTIERE, A JOHNNIE PA Unavailable Unavailable LETTIERE, A JOHNNIE PA Unavailable Unavailable LETTIERE, A JOHNNIE PA Unavailable Unavailable LETTIERE, A JOHNNIE PA Unavailable Unavailable LETTIERE, A JOHNNIE PA Unavailable Unavailable LETTIERE, A JOHNNIE PA Unavailable Unavailable LETTIERE, A JOHNNIE PA Unavailable Unavailable LETTIERE, A JOHNNIE PA Unavailable Unavailable LETTIERE, A JOHNNIE PA Unavailable Unavailable LETTIERE, A JOHNNIE PA Unavailable Unavailable LETTIERE, A JOHNNIE PA Unavailable Unavailable LETTIERE, A JOHNNIE PA Unavailable Unavailable LETTIERE, A JOHNNIE PA Unavailable Unavailable Charlebois, A Kiel RPA C Unavailable Unavailable Charlebois, A Kiel RPA C Unavailable Unavailable Charlebois, A Kiel RPA C Unavailable Unavailable Charlebois, A Kiel RPA C Unavailable Unavailable Charlebois, A Kiel RPA C Unavailable Unavailable Charlebois, A Kiel RPA C Unavailable Unavailable Charlebois, A Kiel RPA C Unavailable Unavailable Charlebois, A Kiel RPA C Unavailable Unavailable Charlebois, A Kiel RPA C Unavailable Unavailable Charlebois, A Kiel RPA C Unavailable Unavailable Charlebois, A Kiel RPA C Unavailable Unavailable Charlebois, A Kiel RPA C Unavailable Unavailable Charlebois, A Kiel RPA C Unavailable Unavailable Charlebois, A Kiel RPA C Unavailable Unavailable Charlebois, A Kiel RPA C Unavailable Unavailable Charlebois, A Kiel RPA C Unavailable Unavailable Charlebois, A Kiel RPA C Unavailable Unavailable Charlebois, A Kiel RPA C Unavailable Unavailable Charlebois, A Kiel RPA C Unavailable Unavailable Charlebois, A Kiel RPA C Unavailable Unavailable Charlebois, A Kiel RPA C Unavailable Unavailable Charlebois, A Kiel RPA C Unavailable Unavailable Charlebois, A Kiel RPA C Unavailable Unavailable Charlebois, A Kiel RPA C Unavailable Unavailable Charlebois, A Kiel RPA C Unavailable Unavailable Charlebois, A Kiel RPA C Unavailable Unavailable Charlebois, A Kiel RPA C Unavailable Unavailable Charlebois, A Kiel RPA C Unavailable Unavailable Charlebois, A Kiel RPA C Unavailable Unavailable Charlebois, A Kiel RPA C Unavailable Unavailable Charlebois, A Kiel RPA C Unavailable Unavailable Charlebois, A Kiel RPA C Unavailable Unavailable Charlebois, A Kiel RPA C Unavailable Unavailable PICKERAL JR, J FIDELINA PA-C Unavailable Unavailable PICKERAL JR, J FIDELINA PA-C Unavailable Unavailable PICKERAL JR, J FIDELINA PA-C Unavailable Unavailable PICKERAL JR, J FIDELINA PA-C Unavailable Unavailable PICKERAL JR, J FIDELINA PA-C Unavailable Unavailable PICKERAL JR, J FIDELINA PA-C Unavailable Unavailable PICKERAL JR, J FIDELINA PA-C Unavailable Unavailable PICKERAL JR, J FIDELINA PA-C Unavailable Unavailable PICKERAL JR, J FIDELINA PA-C Unavailable Unavailable PICKERAL JR, J FIDELINA PA-C Unavailable Unavailable PICKERAL JR, J FIDELINA PA-C Unavailable Unavailable PICKERAL JR, J FIDELINA PA-C Unavailable Unavailable PICKERAL JR, J FIDELINA PA-C Unavailable Unavailable PICKERAL JR, J FIDELINA PA-C Unavailable Unavailable PICKERAL JR, J FIDELINA PA-C Unavailable Unavailable PICKERAL JR, J FIDELINA PA-C Unavailable Unavailable PICKERAL JR, J FIDELINA PA-C Unavailable Unavailable PICKERAL JR, J FIDELINA PA-C Unavailable Unavailable PICKERAL JR, J FIDELINA PA-C Unavailable Unavailable PICKERAL JR, J FIDELINA PA-C Unavailable Unavailable PICKERAL JR, J FIDELINA PA-C Unavailable Unavailable PICKERAL JR, J FIDELINA PA-C Unavailable Unavailable PICKERAL JR, J FIDELINA PA-C Unavailable Unavailable PICKERAL JR, J FIDELINA PA-C Unavailable Unavailable PICKERAL JR, J FIDELINA PA-C Unavailable Unavailable PICKERAL JR, J FIDELINA PA-C Unavailable Unavailable PICKERAL JR, J FIDELINA PA-C Unavailable Unavailable Raciel Gill MD Unavailable Unavailable Raciel Gill MD Unavailable Unavailable Raciel Gill MD Unavailable Unavailable Raciel Gill MD Unavailable Unavailable Raciel Gill MD Unavailable Unavailable Raciel Gill MD Unavailable Unavailable Nikolavsky, Raciel MD Unavailable Unavailable Nikolavsky, Raciel MD Unavailable Unavailable Nikolavsky Raciel MD Unavailable Unavailable Nikolavsky Raciel MD Unavailable Unavailable Cristianolavsky Raciel MD Unavailable Unavailable Cristianolavsky Raciel MD Unavailable Unavailable Nikolavsky Raciel MD Unavailable Unavailable Nikolavsky Raciel MD Unavailable Unavailable Nikolavsky Raciel MD Unavailable Unavailable Nikolavsky Raciel MD Unavailable Unavailable Nikolavsky Raciel MD Unavailable Unavailable Nikolavsky Raciel MD Unavailable Unavailable Nikolavsky Raciel MD Unavailable Unavailable Nikolavsky Raciel MD Unavailable Unavailable Cristianolavsky Raciel MD Unavailable Unavailable Cristianolavsky Raciel MD Unavailable Unavailable Cristianolavsky Raciel MD Unavailable Unavailable Cristianolaesaky Raciel MD Unavailable Unavailable Cristianolavsky Raciel MD Unavailable Unavailable Cristianolaesaky Raciel MD Unavailable Unavailable Cristianolaesaky Raciel MD Unavailable Unavailable Cristianolavsky Raciel MD Unavailable Unavailable Cristianolaesaky Raciel MD Unavailable Unavailable Cristianolaesaky Raciel MD Unavailable Unavailable Cristianolaesaky Raciel MD Unavailable Unavailable Cristianolaesaky Raciel MD Unavailable Unavailable Cristianolavsky Raciel MD Unavailable Unavailable Cristianolavsky Raciel MD Unavailable Unavailable Cristianolavsky Raciel MD Unavailable Unavailable Cristianolavsky Raciel MD Unavailable Unavailable Cristianolaesaky Raciel MD Unavailable Unavailable Cristianolavsky Raciel MD Unavailable Unavailable Nikolavsky Raciel MD Unavailable Unavailable Nikolavsky Raciel MD Unavailable Unavailable Nikolavsky Raciel MD Unavailable Unavailable Cristianolavsky Raciel MD Unavailable Unavailable Cristianolavsky Raciel MD Unavailable Unavailable Cristianolavsky Raciel MD Unavailable Unavailable Nikolavsky Raciel MD Unavailable Unavailable Nikolavsky Raciel MD Unavailable Unavailable Nikolavsky Raciel MD Unavailable Unavailable Nikolavsky Raciel MD Unavailable Unavailable Nikolavsky, Raciel MD Unavailable Unavailable NikolavsRaciel fuentes MD Unavailable Unavailable SEARS, A HEENA DO Unavailable Unavailable SEARS, A HEENA DO Unavailable Unavailable SEARS, A HEENA DO Unavailable Unavailable SEARS, A HEENA DO Unavailable Unavailable SEARS, A HEENA DO Unavailable Unavailable SEARS, A HEENA DO Unavailable Unavailable SEARS, A HEENA DO Unavailable Unavailable SEARS, A HEENA DO Unavailable Unavailable SEARS, A HEENA DO Unavailable Unavailable SEARS, A HEENA DO Unavailable Unavailable SEARS, A HEENA DO Unavailable Unavailable SEARS, A HEENA DO Unavailable Unavailable SEARS, A HEENA DO Unavailable Unavailable SEARS, A HEENA DO Unavailable Unavailable SEARS, A HEENA DO Unavailable Unavailable SEARS, A HEENA DO Unavailable Unavailable SEARS, A HEENA DO Unavailable Unavailable SEARS, A HEENA DO Unavailable Unavailable SEARS, A HEENA DO Unavailable Unavailable SEARS, A HEENA DO Unavailable Unavailable SEARS, A HEENA DO Unavailable Unavailable SEARS, A HEENA DO Unavailable Unavailable SEARS, A HEENA DO Unavailable Unavailable SEARS, A HEENA DO Unavailable Unavailable SEARS, A HEENA DO Unavailable Unavailable SEARS, A HEENA DO Unavailable Unavailable SEARS, A HEENA DO Unavailable Unavailable SEARS, A HEENA DO Unavailable Unavailable SEARS, A HEENA DO Unavailable Unavailable SEARS, A HEENA DO Unavailable Unavailable SEARS, A HEENA DO Unavailable Unavailable SEARS, A HEENA DO Unavailable Unavailable SEARS, A HEENA DO Unavailable Unavailable SEARS, A HEENA DO Unavailable Unavailable SEARS, A HEENA DO Unavailable Unavailable SEARS, A HEENA DO Unavailable Unavailable SEARS, A HEENA DO Unavailable Unavailable SEARS, A HEENA DO Unavailable Unavailable SEARS, A HEENA DO Unavailable Unavailable SEARS, A HEENA DO Unavailable Unavailable SEARS, A HEENA DO Unavailable Unavailable SEARS, A HEENA DO Unavailable Unavailable SEARS, A HEENA DO Unavailable Unavailable SEARS, A HEENA DO Unavailable Unavailable SEARS, A HEENA DO Unavailable Unavailable SEARS, A HEENA DO Unavailable Unavailable SEARS, A HEENA DO Unavailable Unavailable SEARS, A HEENA DO Unavailable Unavailable [place] yin MD Unavailable Unavailable [place] yin MD Unavailable Unavailable [place] yin MD Unavailable Unavailable [place] yin MD Unavailable Unavailable [place] MD Unavailable Unavailable AugustaNando yin MD Unavailable Unavailable Augusta, F Heller MD Unavailable Unavailable [place] MD Unavailable Unavailable [place] MD Unavailable Unavailable [place] MD Unavailable Unavailable [place] MD Unavailable Unavailable [place] MD Unavailable Unavailable AugustaNando MD Unavailable Unavailable AugustaNando MD Unavailable Unavailable AugustaNando MD Unavailable Unavailable AugustaNando MD Unavailable Unavailable [place] MD Unavailable Unavailable AugustaNando MD Unavailable Unavailable [place] MD Unavailable Unavailable AugustaNando MD Unavailable Unavailable [place] MD Unavailable Unavailable [place] MD Unavailable Unavailable AugustaNando MD Unavailable Unavailable [place] MD Unavailable Unavailable [place] MD Unavailable Unavailable [place] MD Unavailable Unavailable AugustaNando MD Unavailable Unavailable [place] MD Unavailable Unavailable AugustaNando MD Unavailable Unavailable [place] MD Unavailable Unavailable [place] MD Unavailable Unavailable [place] MD Unavailable Unavailable AugustaNando MD Unavailable Unavailable AugustaNando MD Unavailable Unavailable [place] MD Unavailable Unavailable AugustaNando MD Unavailable Unavailable [place] MD Unavailable Unavailable [place] MD Unavailable Unavailable AugustaNando MD Unavailable Unavailable [place] MD Unavailable Unavailable AugustaNando MD Unavailable Unavailable AugustaNando yin MD Unavailable Unavailable AugustaNando MD Unavailable Unavailable [place] MD Unavailable Unavailable [place] yin MD Unavailable Unavailable AugustaNando MD Unavailable Unavailable [place] MD Unavailable Unavailable AugustaNando yin MD Unavailable Unavailable AugustaNando yin MD Unavailable Unavailable AugustaNando MD Unavailable Unavailable [place] MD Unavailable Unavailable [place] MD Unavailable Unavailable [place] MD Unavailable Unavailable AugustaNando MD Unavailable Unavailable AugustaNando MD Unavailable Unavailable AugustaNando MD Unavailable Unavailable [place] MD Unavailable Unavailable AugustaNando MD Unavailable Unavailable AugustaNando MD Unavailable Unavailable AugustaNnado MD Unavailable Unavailable AugustaNando MD Unavailable Unavailable AugustaNando MD Unavailable Unavailable [place] MD Unavailable Unavailable [place] MD Unavailable Unavailable [place] MD Unavailable Unavailable AugustaNando MD Unavailable Unavailable [place], Nando Heller MD Unavailable Unavailable AugustaNando MD Unavailable Unavailable [place] MD Unavailable Unavailable AugustaNando MD Unavailable Unavailable AugustaNando MD Unavailable Unavailable [place] MD Unavailable Unavailable AugustaNando MD Unavailable Unavailable [place] MD Unavailable Unavailable [place] MD Unavailable Unavailable AugustaNando MD Unavailable Unavailable AugustaNando MD Unavailable Unavailable AugustaNando MD Unavailable Unavailable AugustaNando MD Unavailable Unavailable AugustaNando MD Unavailable Unavailable Augusta, Nando Heller MD Unavailable Unavailable [place]ando MD Unavailable Unavailable [place] MD Unavailable Unavailable [place] MD Unavailable Unavailable AugustaNando MD Unavailable Unavailable AugustaNando MD Unavailable Unavailable Rechlin, P Freddy DO Unavailable Unavailable Rechlin, P Freddy DO Unavailable Unavailable Rechlin, P Freddy DO Unavailable Unavailable Rechlin, P Freddy DO Unavailable Unavailable Rechlin, P Freddy DO Unavailable Unavailable Rechlin, P Freddy DO Unavailable Unavailable Rechlin, P Freddy DO Unavailable Unavailable Rechlin, P Freddy DO Unavailable Unavailable Rechlin, P Freddy DO Unavailable Unavailable Rechlin, P Freddy DO Unavailable Unavailable Rechlin, P Freddy DO Unavailable Unavailable Rechlin, P Freddy DO Unavailable Unavailable Rechlin, P Freddy DO Unavailable Unavailable Rechlin, P Frdedy DO Unavailable Unavailable Rechlin, P Freddy DO Unavailable Unavailable Rechlin, P Freddy DO Unavailable Unavailable Rechlin, P Freddy DO Unavailable Unavailable Rechlin, P Freddy DO Unavailable Unavailable Rechlin, P Freddy DO Unavailable Unavailable Rechlin, P Freddy DO Unavailable Unavailable Rechlin, P Freddy DO Unavailable Unavailable Rechlin, P Freddy DO Unavailable Unavailable Rechlin, P Freddy DO Unavailable Unavailable Rechlin, P Freddy DO Unavailable Unavailable Rechlin, P Freddy DO Unavailable Unavailable Rechlin, P Freddy DO Unavailable Unavailable Rechlin, P Freddy DO Unavailable Unavailable Rechlin, P Freddy DO Unavailable Unavailable Rechlin, P Freddy DO Unavailable Unavailable Rechlin, P Freddy DO Unavailable Unavailable Rechlin, P Freddy DO Unavailable Unavailable Rechlin, P Freddy DO Unavailable Unavailable Rechlin, P Freddy DO Unavailable Unavailable Rechlin, P Freddy DO Unavailable Unavailable Rechlin, P Freddy DO Unavailable Unavailable Rechlin, P Freddy DO Unavailable Unavailable Rechlin, P Freddy DO Unavailable Unavailable Rechlin, P Freddy DO Unavailable Unavailable Rechlin, P Freddy DO Unavailable Unavailable Rechlin, P Freddy DO Unavailable Unavailable Rechlin, P Freddy DO Unavailable Unavailable Rechlin, P Freddy DO Unavailable Unavailable Rechlin, P Freddy DO Unavailable Unavailable Rechlin, P Freddy DO Unavailable Unavailable Rechlin, P Freddy DO Unavailable Unavailable Rechlin, P Freddy DO Unavailable Unavailable Rechlin, P Freddy DO Unavailable Unavailable Rechlin, P Freddy DO Unavailable Unavailable Rechlin, P Freddy DO Unavailable Unavailable Rechlin, P Freddy DO Unavailable Unavailable Rechlin, P Freddy DO Unavailable Unavailable Vadim Thacker MD Unavailable Unavailable Vadim Thacker MD Unavailable Unavailable Vadim Thacker MD Unavailable Unavailable Vadim Thacker MD Unavailable Unavailable Vadim Thacker MD Unavailable Unavailable Vadim Thacker MD Unavailable Unavailable Vadim Thacker MD Unavailable Unavailable Vadim Thacker MD Unavailable Unavailable Vadim Thacker MD Unavailable Unavailable Vadim Thacker MD Unavailable Unavailable Vadim Thacker MD Unavailable Unavailable Vadim Thacker MD Unavailable Unavailable Vadim Thacker MD Unavailable Unavailable Vadim Thacker MD Unavailable Unavailable Vadim Thacker MD Unavailable Unavailable Vadim Thacker MD Unavailable Unavailable Vadim Thacker MD Unavailable Unavailable Vadim Thacker MD Unavailable Unavailable Vadim Thacker MD Unavailable Unavailable Vadim Thacker MD Unavailable Unavailable Vadim Thacker MD Unavailable Unavailable Vadim Thacker MD Unavailable Unavailable Vadim Thacker MD Unavailable Unavailable Vadim Thacker MD Unavailable Unavailable Vadim Thacker MD Unavailable Unavailable Vadim Thacker MD Unavailable Unavailable Vadim Thacker MD Unavailable Unavailable Vadim Thacker MD Unavailable Unavailable Vadim Thacker MD Unavailable Unavailable Vadim Thacker MD Unavailable Unavailable Vadim Thacker MD Unavailable Unavailable Vadim Thacker MD Unavailable Unavailable Vadim Thacker MD Unavailable Unavailable Vadim Thacker MD Unavailable Unavailable Vadim Thacker MD Unavailable Unavailable Vadim Thacker MD Unavailable Unavailable Vadim Thacker MD Unavailable Unavailable Vadim Thacker MD Unavailable Unavailable Vadim Thacker MD Unavailable Unavailable Vadim Thacker MD Unavailable Unavailable Vadim Thacker MD Unavailable Unavailable Vadim Thacker MD Unavailable Unavailable Vadim Thacker MD Unavailable Unavailable Vadim Thacker MD Unavailable Unavailable Vadim Thacker MD Unavailable Unavailable Vadim Thacker MD Unavailable Unavailable Vadim Thacker MD Unavailable Unavailable Vadim Thacker MD Unavailable Unavailable Vadim Thacker MD Unavailable Unavailable Vadim Thacker MD Unavailable Unavailable Vadim Thacker MD Unavailable Unavailable Vadim Thacker MD Unavailable Unavailable Vadim Thacker MD Unavailable Unavailable Vadim Thacker MD Unavailable Unavailable Re-disclosure Warning The records that you are about to access may contain information from federally-assisted alcohol or drug abuse programs. If such information is present, then the following federally mandated warning applies: This information has been disclosed to you from records protected by federal confidentiality rules (42 CFR part 2). The federal rules prohibit you from making any further disclosure of this information unless further disclosure is expressly permitted by the written consent of the person to whom it pertains or as otherwise permitted by 42 CFR part 2. A general authorization for the release of medical or other information is NOT sufficient for this purpose. The Federal rules restrict any use of the information to criminally investigate or prosecute any alcohol or drug abuse patient.The records that you are about to access may contain highly sensitive health information, the redisclosure of which is protected by Article 27-F of the [facility] Public Health law. If you continue you may have access to information: Regarding HIV / AIDS; Provided by facilities licensed or operated by the [facility] Office of Mental Health; or Provided by the [facility] Office for People With Developmental Disabilities. If such information is present, then the following [facility] mandated warning applies: This information has been disclosed to you from confidential records which are protected by state law. State law prohibits you from making any further disclosure of this information without the specific written consent of the person to whom it pertains, or as otherwise permitted by law. Any unauthorized further disclosure in violation of state law may result in a fine or long-term sentence or both. A general authorization for the release of medical or other information is NOT sufficient authorization for further disc losure. Allergies and Adverse Reactions Type Description Substance Reaction Status Data Source(s ) Adverse Reaction Amoxicillin Amoxicillin [facility] ([facility], ) Family History Family Member Name Family Member Gender Family Member Status Date o f Status Description Data Source(s) Unknown Male Problem [facility] ([facility]) Unknown Unknown Problem [facility] ([facility], ) Unknown Unknown Problem [facility]) father Unknown Male Problem [facility] ([facility] () Unknown Unknown Problem [facility] ([facility] Encounters Encounter Providers Location Date Indications Data Source(s ) Outpatient Attender: Raciel Gill MD 10/15/2021 12:0 0:00 AM [facility] Outpatient Attender: Bentley Isaacs/Yumiko/Grabiel/R eindl 08/29/2021 10:00:00 AM EDT [facility] ([facility]) Outpatient Attender: HEENA Marquezang/Waddy/Grabiel/Reindl 07/28/2021 01:23:00 AM EDT [facility] ([facility]) Outpatient Attender: Bentley Isaacs/Yumiko/Grabiel/R eindl 07/18/2021 02:15:00 PM EDT [facility] ([facility]) Outpatient Attender: Bentley Isaacs/Yumiko/Grabiel/R eindl 07/03/2021 01:30:00 PM EDT [facility] ([facility]) Outpatient Attender: Sharda Iasacs/Yumiko/Grabiel/Jose ndl 06/21/2021 01:23:00 AM EDT [facility] ([facility]) Outpatient Attender: Arron Espinoza 0 06/19/2021 01:30:00 PM EDT [facility] ([facility] ) Outpatient Attender: JOHNNIE tejada 06/16/2021 10:15:00 AM EDT [facility] ([facility] Outpatient Attender: Arron Espinoza 0 05/23/2021 10:40:00 AM EDT [facility] ([facility] ) Outpatient Attender: Bentley Isaacs/Yumiko/Grabiel/R eindl 05/21/2021 02:30:00 PM EDT [facility] ([facility]) Outpatient Attender: FIDELINA Espinoza 0 05/09/2021 09:40:00 AM EDT [facility] ([facility] ) Outpatient Attender: HEENA Marquezang/Waddy/Grabiel/Reindl 05/04/2021 01:23:00 AM EDT [facility] ([facility], ) Outpatient Attender: Freddy Hernandez/Waddy/Grabiel/Jose ndl 05/03/2021 01:23:00 AM EDT [facility] ([facility], ) Outpatient Attender: Freddy Hernandez/Waddy/Grabiel/Jose ndl 05/02/2021 01:23:00 AM EDT [facility] ([facility], ) Outpatient Attender: Freddy Hernandez/Waddy/Grabiel/Jose ndl 05/01/2021 01:23:00 AM EDT [facility] ([facility], ) Outpatient Attender: Sharda Isaacs/Waddy/Grabiel/Jose ndl 04/29/2021 01:23:00 AM EDT [facility] ([facility], ) Outpatient Attender: Kiel Isaacs/Yumiko/A [place]/Reindl 03/12/2021 03:00:00 PM EDT [facility] ([facility], ) Outpatient Attender: Bentley Isaacs/Yumiko/Grabiel/R eindl 03/08/2021 01:45:00 PM EDT [facility] ([facility], ) Outpatient Attender: Arron Espinoza 0 12/25/2020 12:00:00 PM EST [facility] ([facility] ) Outpatient Attender: Bentley Isaacs/Yumiko/Grabiel/R eindl 12/07/2020 10:15:00 AM EST [facility] ([facility], ) Outpatient Attender: Raciel Gill MD [id number] 10/16/2020 12:00:00 AM EST - 10/16/2020 01:50:52 PM EST Retention of urine, unspecified [facility] Retention of urine, unspecified Outpatient Attender: Bentley Isaacs/Yumiko/Grabiel/R eindl 08/29/2020 09:00:00 AM EDT MEDENT ([facility], ) Outpatient Attender: FIDELINA Espinoza 0 07/21/2020 01:40:00 PM EDT YUNIER ([facility] ) Outpatient Attender: Raciel Gill MD [id number] 06/19/2020 12:00:00 AM EDT - 06/19/2020 03:50:06 PM EDT [facility] Immunizations Vaccine Date Status Description Data Source(s) COVID-19 VACCINE Moderna 12/25/2020 12:00:00 AM EST completed [facility] Vaccine Series Complete: YESThis Data wa s Submitted to [facility]. COVID-19 VACCINE Moderna 11/26/2020 12:00:00 AM EST completed [facility] Vaccine Series Complete: NOThis Data was Submitted to [facility] [employer]. This CVX code allows reporting of a vacc ination when formulation is unknown (for example, when recording a Influenza vaccination when noted on a vaccination card) 07/20/2020 08:53:00 AM EDT completed KAYCEE Whitmroe ([facility]) Medications Medication Brand Name Start Date Product Form Dose Route Admi nistrative Instructions Pharmacy Instructions Status Indications Reaction Description Data Source(s) Meclizine Hydrochloride 25 MG Oral Tablet MECLIZINE HCL 08/09/2021 12:00:00 AM EDT tablet 30 TAKE ONE TABLET BY MOUTH TWI CE A DAY NEEDED FOR DIZZINESS TAKE ONE TABLET BY MOUTH TWICE A DAY NEEDED FOR DIZZINESS SOLD: 08/31/2021 [facility] Meclizine Hydrochloride 25 MG Oral Tablet MECLIZINE HCL 08/09/2021 12:00:00 AM EDT tablet 30 TAKE ONE TABLET BY MOUTH TWI CE A DAY NEEDED FOR DIZZINESS TAKE ONE TABLET BY MOUTH TWICE A DAY NEEDED FOR DIZZINESS SOLD: 08/09/2021 [facility] 0.5 mg 08/09/2021 12:00:00 AM EDT tablet 30 TAKE ONE TABLET BY MOUTH EVERY DAY NEEDED FOR ANXIETY MAXIMUM DAILY DOSE = 1 TAKE ONE TABLET BY MOUTH EVERY DAY NEEDED FOR ANXIETY MAXIMUM DAILY DOSE = 1 SOLD: 08/09/2021 [facility] 10 mg 08/08/2021 12:00:00 AM EDT tablet 90 TAKE ONE TABLET BY MOUTH THREE TIMES A DAY TAKE ONE TABLET BY MOUTH THREE TIMES A DAY SOLD: 08/08/2021 [facility] 100,000 unit/mL 08/06/2021 12:00:00 AM EDT suspension 200 SWISH AND SPIT OUT 1 TEASPOONFUL TWO TIMES A DAY NEEDED FOR THRUSH SWISH AND SPIT OUT 1 TEASPOONFUL TWO TIMES A DAY NEEDED FOR THRUSH SOLD: 08/06/2021 [facility] 10 mg 08/06/2021 12:00:00 AM EDT tablet 45 TAKE TWO TABLETS BY MOUTH EVERY OTHER DAY ALTERNATE WITH 1 EVERY OTHER DAY TAKE TWO TABLETS BY MOUTH EVERY OTHER DAY ALTERNATE WITH 1 EVERY OTHER DAY SOLD: 08/06/2021 [facility] Fluticasone propionate 0.05 MG/ACTUAT Metered Dose [place] 50 mcg/actuation FLUTICASONE PROPIONATE 08/06/2021 12:00:00 AM EDT spray,suspension 16 INSTILL 2 SPRAYS IN EACH NOSTRIL ONCE DAILY INSTILL 2 SPRAYS IN EACH NOSTRIL ONCE DAILY SOLD: 08/06/2021 [facility] 10 mg 08/06/2021 12:00:00 AM EDT tablet 45 TAKE TWO TABLETS BY MOUTH EVERY OTHER DAY ALTERNATE WITH 1 EVERY OTHER DAY TAKE TWO TABLETS BY MOUTH EVERY OTHER DAY ALTERNATE WITH 1 EVERY OTHER DAY SOLD: 09/07/2021 [facility] Prednisone 10 MG Oral Tablet Prednisone 08/02/2021 12:00:00 AM EDT active [facility] ([facility], ) 750 mg 07/29/2021 12:00:00 AM EDT tablet 7 TAKE ONE TABLET BY MOUTH EVERY DAY TAKE ONE TABLET BY MOUTH EVERY DAY SOLD: 07/31/2021 [facility] 10 mg 07/24/2021 12:00:00 AM EDT tablet 30 TAKE 1 TABLET EVERY OTHER DAY AND 1 & 1/2 EVERY OTHER DAY WITH FOOD TAKE 1 TABLET EVERY OTHER DAY AND 1 & 1/ 2 EVERY OTHER DAY WITH FOOD SOLD: 07/24/2021 [facility] 0.5 mg 07/11/2021 12:00:00 AM EDT tablet 15 TAKE ONE TABLET BY MOUTH EVERY DAY NEEDED MAXIMUM DAILY DOSE = 1 TABLET TAKE ONE TABLET BY MOUTH EVERY DAY NEEDED MAXIMUM DAILY DOSE = 1 TABLET SOLD: 07/13/2021 [facility] Lorazepam 0.5 MG Oral Tablet [Ativan] Ativan 07/10/2021 12:00:00 AM EDT ORAL active MED[facility] ([facility]) 5 mg 07/03/2021 12:00:00 AM EDT tablet 30 TA KE 3 TABLETS BY MOUTH ALTERNATE WITH 2 TABLETS DAILY TA KE 3 TABLETS BY MOUTH ALTERNATE WITH 2 TABLETS ANDREA Y SOLD: 07/03/2021 [facility] Prednisone 5 MG Oral Tablet Prednisone 07/03/2021 12:00:00 AM EDT completed [facility] 750 mg 06/22/2021 12:00:00 AM EDT tablet 7 TAKE ONE TABLET BY MOUTH EVERY DAY TAKE ONE TABLET BY MOUTH EVERY DAY SOLD: 06/22/2021 [facility] 7.5 mg 06/20/2021 12:00:00 AM EDT tablet 30 TAKE ONE TABLET BY MOUTH AT BEDTIME TAKE ONE TABLET BY MOUTH AT BEDTIME SOLD: 06/22/2021 [facility] 100 mg 06/20/2021 12:00:00 AM EDT tablet 10 TAKE ONE TABLET BY MOUTH EVERY DAY FOR 10 DAYS TAKE ONE TABLET BY MOUTH EVERY DAY FOR 10 DAYS SOLD: [facility] Fluconazole 100 MG Oral Tablet [Diflucan] Diflucan 06/19/2021 1 2:00:00 AM EDT ORAL completed [facility]ENT ([facility]) Mirtazapine 7.5 MG Oral Tablet Mirtazapine 06/19/2021 12:00:00 AM EDT ORAL completed [facility] ([facility]) 10 mg 06/16/2021 12:00:00 AM EDT christie 35 DISSOLVE IN MOUTH 5 TIMES A DAY FOR 7 DAYS DISSOLVE IN MOUTH 5 TIMES A DAY FOR 7 DAYS SOLD: 06/16/2021 [facility] Clotrimazole 10 MG Oral Lozenge Clotrimazole 06/16/2021 12:00:00 AM EDT active [facility] ([facility]) 10 mg 06/02/2021 12:00:00 AM EDT tablet 90 TAKE ONE TABLET BY MOUTH THREE TIMES A DAY TAKE ONE TABLET BY MOUTH THREE TIMES A DAY SOLD: 06/02/2021 [facility] Bacid Bacid 05/09/2021 12:00:00 AM EDT ORAL active MEDENT ([facility]) 5 mg 05/06/2021 12:00:00 AM EDT tablet 90 TAKE 2 TABLETS BY MOUTH THREE TIMES A DAY (8AM, 12PM, AND 4PM) TAKE 2 TABLETS BY MOUTH THREE TIMES A DA Y (8AM, 12PM, AND 4PM) SOLD: 05/06/2021 [facility] 05/04/2021 12:00:00 AM EDT misc 56 TAKE ONE CAPLET BY MOUTH THREE TIMES A DAY WITH MEALS AND AT BEDTIME TAKE ONE CAPLET BY MOUTH THREE TIMES A D AY WITH MEALS AND AT BEDTIME SOLD: 05/04/2021 [facility] Amoxicillin 875 MG / Clavulanate 125 MG Oral Tablet 87 5-125 mg AMOXICILLIN/POTASSIUM CLAV 05/04/2021 12:00:00 AM EDT tablet 28 TAKE ONE TABLET BY MOUTH TWICE A DAY TAKE ONE TABLET BY MOUTH TWICE A DAY SOLD: 05/04/2021 [facility] Acetaminophen 325 MG / Oxycodone Hydrochloride 5 MG Or al Tablet 5-325 mg OXYCODONE HCL/ACETAMINOPHEN 04/16/2021 12:00:00 AM EDT tablet 90 TAKE ONE TABLET BY MOUTH EVERY 8 HOURS NEEDED FOR PAIN MAXIMUM DAILY DOSE = 3 TAKE ONE TABLET BY MOUTH EVERY 8 HOURS NEEDED FOR PAIN MAXIMUM DAILY DOSE = 3 SOLD: 04/19/2021 [facility] 500 mg 04/06/2021 12:00:00 AM EDT tablet 28 TAKE ONE TABLET BY MOUTH TWICE A DAY FOR 14 DAYS TAKE ONE TABLET BY MOUTH TWICE A DAY FOR 14 DAYS SOLD: 04/06/2021 [facility] Ciprofloxacin 500 MG Oral Tablet [Cipro] Cipro 04/06/2021 12:00: 00 AM EDT ORAL completed [facility] ([facility], ) 10 mg 04/03/2021 12:00:00 AM EDT tablet 36 TAKE FOUR TABLETS BY MOUTH EVERY DAY FOR 4 DAYS THEN 3 ONCE DAILY FOR 4 DAYS THEN 2 ONCE DAILY FOR 4 DAYS THEN RETURN TO ALTERNATING 20MG AND 10MG DAILY TAKE FOUR TABLETS BY MOUTH EVERY DAY FOR 4 DAYS THEN 3 ONCE DAILY FOR 4 DAYS THEN 2 ONCE DAILY FOR 4 DAYS THEN RETURN TO ALTERNATING 20MG AND 10MG DAILY SOLD: 04/03/2021 [facility] Prednisone 10 MG Oral Tablet Prednisone 04/03/2021 12:00:00 AM EDT ORAL completed [facility] ([facility], ) 17 gram/dose 03/15/2021 12:00:00 AM EDT powder 510 TAKE 1 DOSE DAILY FOR 7 DAYS PRIOR TO COLONOSCOPY DIRECTED THEN USE FOR BOWEL PREP PER INSTRUCTIONS TAKE 1 DOSE DAILY FOR 7 DAYS PRIOR TO COLONOSCOPY DIRECTED THEN USE FOR BOWEL PREP PER INSTRUCTIONS SOLD: 03/16/2021 [facility] POLYETHYLENE GLYCOL 3350 142 MG/ML Oral Solution [Miralax] M iralax 03/12/2021 12:00:00 AM EDT active M EDENT ([facility], ) Acetaminophen 325 MG / Oxycodone Hydrochloride 5 MG Or al Tablet 5-325 mg OXYCODONE HCL/ACETAMINOPHEN 03/12/2021 12:00:00 AM EDT tablet 90 TAKE ONE TABLET BY MOUTH EVERY 8 HOURS NEEDED FOR PAIN MAXIMUM DAILY DOSE = 3 TABLETS TAKE ONE TABLET BY MOUTH EVERY 8 HOURS NEEDED FOR PAIN MAXIMUM DAILY DOSE = 3 TABLETS SOLD: 03/16/2021 [facility] magnesium citrate 58.2 MG/ML Oral Solution Magnesium Citrate 03/12/2021 12:00:00 AM EDT active [facility] ([facility]) 500 mg 02/27/2021 12:00:00 AM EDT tablet 20 TAKE ONE TABLET BY MOUTH TWICE A DAY FOR 10 DAYS TAKE ONE TABLET BY MOUTH TWICE A DAY FOR 10 DAYS SOLD: 02/27/2021 [facility] Ciprofloxacin 500 MG Oral Tablet [Cipro] Cipro 02/27/2021 12:00: 00 AM EDT ORAL completed MED[facility] ([facility], ) 5-325 mg 02/16/2021 12:00:00 AM EDT tablet 90 TAKE ONE TABLET BY MOUTH EVERY 8 HOURS NEEDED FOR PAIN MAXIMUM DAILY DOSE = THREE TABLETS TAKE ONE TABLET BY MOUTH EVERY 8 HOURS NEEDED FOR PAIN MAXIMUM DAILY DOSE = THREE TABLETS SOLD: 02/20/2021 [facility] 100,000 unit/mL 02/16/2021 12:00:00 AM EDT suspension 200 USE 5ML BY MOUTH SWISH AND SPIT TWO TIMES A DAY NEEDED FOR THRUSH USE 5ML BY MOUTH SWISH AND SPIT TWO TIMES A DAY NEEDED FOR THRUSH SOLD: 02/20/2021 [facility] 100,000 unit/mL 02/16/2021 12:00:00 AM EDT suspension 200 USE 5ML BY MOUTH SWISH AND SPIT TWO TIMES A DAY NEEDED FOR THRUSH USE 5ML BY MOUTH SWISH AND SPIT TWO TIMES A DAY NEEDED FOR THRUSH SOLD: 04/03/2021 [facility] 500 mg 01/02/2021 12:00:00 AM EST tablet 4 TAKE FOUR TABLETS BY MOUTH 1 HOUR PRIOR TO DENTAL PROCEDURE TAKE FOUR TABLETS BY MOUTH 1 HOUR PRIOR TO DENTAL PROCEDURE SOLD: 01/07/2021 [facility] ferrous sulfate 325 MG Oral Tablet Ferrous Sulfate 12/26/2020 12:00 :00 AM EST ORAL active MEDENT ([facility]) 100,000 unit/mL 12/26/2020 12:00:00 AM EST suspension 200 USE 5ML BY MOUTH TO SWISH AND SPIT TWO TIMES A DAY NEEDED FOR THRUSH USE 5ML BY MOUTH TO SWISH AND SPIT TWO TIMES A DAY NEEDED FOR THRUSH SOLD: 01/19/2021 [facility] 100,000 unit/mL 12/26/2020 12:00:00 AM EST suspension 200 USE 5ML BY MOUTH TO SWISH AND SPIT TWO TIMES A DAY NEEDED FOR THRUSH USE 5ML BY MOUTH TO SWISH AND SPIT TWO TIMES A DAY NEEDED FOR THRUSH SOLD: 12/26/2020 [facility] Covid-19 vaccine, Unspecified 12/25/2020 12:00:00 AM EST completed MEDENT ([facility], ) Medication administered onsite Oxygen 12/07/2020 12:00:00 AM EST active MEDENT ([facility], ) Covid-19 vaccine, Unspecified 11/26/2020 12:00:00 AM EST completed [facility] ([facility]) Medication administered onsite Covid-19 vaccine, Unspecified 11/24/2020 12:00:00 AM EST completed [facility] ([facility], ) Medication administered onsite lidocaine (XYLOCAINE) 2 % urojet 20 mL [address]-0 0 01:30:00 PM EST 20 mL Urethral completed 20 mL, Urethr al, Once, 10/16/20 at 1330, For 1 dose [facility] Medication administered onsite Sulfamethoxazole 800 MG / Trimethoprim 1 60 MG Oral Tablet sulfamethoxazole- trimethoprim (BACTRIM DS) 800-160 MG per tablet 1 tablet sulfamethoxazole- trimethoprim (BACTRIM DS) 800-160 MG per tablet 1 tablet 10/16/2020 01:30:00 PM EST 1 {tbl} Oral completed 1 tabl et, Oral, Once, 10/16/20 at 1330, For 1 dose [facility] Medication administered onsite 120 ACTUAT Albuterol 0.1 MG/ACTUAT / Ipr atropium [place] 0.02 MG/ACTUAT Metered Dose Inhaler [Combivent] Combivent Respimat 20-100 MCG/ACT Inhalation Aerosol Solution Combivent Respimat 20-100 MCG/ACT Inhalation Aerosol S olution 10/12/2020 12:00:00 AM EST [facility] 500 mg 09/04/2020 12:00:00 AM EDT tablet 28 TAKE ONE TABLET BY MOUTH TWICE A DAY FOR 14 DAYS TAKE ONE TABLET BY MOUTH TWICE A DAY FOR 14 DAYS SOLD: 09/04/2020 [facility] Ciprofloxacin 500 MG Oral Tablet [Cipro] Cipro 09/04/2020 12:00: 00 AM EDT ORAL completed [facility] ([facility]) 24 HR mirabegron 50 MG Extended Release Oral Tablet [Myrbetriq] Myrbetriq 50 MG Oral Tablet Extended Release 24 Hour Myrbetriq 50 MG Oral Tablet Extended Release 24 Hour 09/03/2020 12:00:00 AM EDT [facility] 7 ACTUAT umeclidinium 0.0625 MG/ACTUAT D ry Powder Inhaler [Incruse] Incruse Ellipta 62.5 MCG/INH Inhalation Aerosol Powder Breath Activated Incruse Ellipta 62.5 MCG/INH Inhalation Aerosol Powder Breath Activated 09/02/2020 12:00:00 AM EDT active [facility] 20 mg 08/29/2020 12:00:00 AM EDT tablet 14 TAKE 1 TABLT BY MOUTH ALTERNATING WITH 10MG DAILY DIRECTED TAKE 1 TABLT BY MOUTH ALTERNATING WITH 1 0MG DAILY DIRECTED SOLD: 09/28/2020 [facility] Prednisone 20 MG Oral Tablet Prednisone 08/29/2020 12:00:00 AM EDT active [facility] 20 mg 08/29/2020 12:00:00 AM EDT tablet 14 TAKE 1 TABLT BY MOUTH ALTERNATING WITH 10MG DAILY DIRECTED TAKE 1 TABLT BY MOUTH ALTERNATING WITH 1 0MG DAILY DIRECTED SOLD: 10/24/2020 [facility] 20 mg 08/29/2020 12:00:00 AM EDT tablet 14 TAKE 1 TABLT BY MOUTH ALTERNATING WITH 10MG DAILY DIRECTED TAKE 1 TABLT BY MOUTH ALTERNATING WITH 1 0MG DAILY DIRECTED SOLD: 09/01/2020 [facility] Carboxymethylcellulose Sodium 5 MG/ML Op hthalmic Solution Refresh Tears 0.5 % Ophthalmic Solution Refresh Tears 0.5 % Ophthalmic Solution 08/19/2020 12: 00:00 AM EDT active [facility] Nystatin 912225 UNT/ML Oral Suspension N ystatin 056918 UNIT/ML Mouth/Throat Suspension (MYCOSTATIN) Nystatin 371558 UNIT/ML Mouth/Throat [place] pension (MYCOSTATIN) 07/24/2020 12:00:00 AM EDT activ e SWISH AND SPIT 5ML TWO TIMES A DAY NEEDED FOR THRUSH [facility] solifenacin succinate 10 MG Oral Tablet Solifenacin Succinate 10 MG Oral Tablet (VESICARE) Solifenacin Succinate 10 MG Oral Tablet (VESICARE) 10/2020 12:00:00 AM EDT active [facility] Prednisone 10 MG Oral Tablet Prednisone 07/11/2020 12:00:00 AM EDT ORAL completed [facility] ([facility], ) 10 mg 07/11/2020 12:00:00 AM EDT tablet 36 TAKE FOUR TABLETS BY MOUTH EVERY DAY FOR 4 DAYS THEN TAKE THREE TABLETS EVERY DAY FOR 4 DAYS THEN 2 ONCE DAILY FOR 4 DAYS THEN RETURN TO 1 ONCE DAILY TAKE FOUR TABLETS BY MOUTH EVERY DAY FOR 4 DAYS THEN TAKE THREE TABLETS EVERY DAY FOR 4 DAYS THEN 2 ONCE DAILY FOR 4 DAYS THEN RETURN TO 1 ONCE DAILY SOLD: 07/17/2020 [facility] 100,000 unit/mL 07/07/2020 12:00:00 AM EDT suspension 200 SWISH AND SPIT 5ML TWO TIMES A DAY NEEDED FOR THRUSH SWISH AND SPIT 5ML TWO TIMES A DAY NEEDED FOR THRUSH SOLD: 07/24/2020 [facility] Hydrochlorothiazide 12.5 MG Oral Capsule hydroCHLOROthiazide 12.5 MG Oral Capsule (MICROZIDE) hydroCHLOROthiazide 12.5 MG Oral Capsule (MICROZIDE) 06/23/2020 12:00:00 AM EDT aborted TAKE ONE CAPSULE BY MOUTH EVERY MORNING FOR HYPERTENSION [facility] solifenacin succinate 10 MG Oral Tablet Solifenacin Succinate 10 MG Oral Tablet (VESICARE) Solifenacin Succinate 10 MG Oral Tablet (VESICARE) 05/2020 12:00:00 AM EST 10 mg Oral active Take 1 t ablet by mouth daily [facility] Potassium 99 MG TABS 21066-17289 1 {tbl} Oral abo rted Take 1 tablet by mouth every evening [facility] Probiotic Product ([employer] PROBIOTIC) CHEW [address]-13 2 { tbl} Oral aborted Chew 2 tablets by Mouth nightly [facility] Ouray-3 Fatty Acids (FISH OIL) 1200 MG CAPS 17280-67070 1 {capsule} Oral aborted Take 1 capsule by mouth [facility] Polyvinyl Alcohol 0.014 ML/ML Ophthalmic Solution polyvinyl alcohol (LIQUIFILM TEARS) 1.4 % ophthalmic solution polyvinyl alcohol (LIQUIFILM TEARS) 1.4 % ophthalmic solution 1 [drp] Both Eyes aborted Place 1 drop into both eyes Four times daily [facility] MAGNESIUM PO 500 mg Oral aborted Take 500 mg by mouth Two Times Daily [facility] Insurance Providers Payer name Policy type / Coverage type Policy ID Covered democrat ID Covered democrat's relationship to gonzalez Policy Gonzalez Plan Information [employer] Commercial [id number] Self S [id number] [employer] Part B [id number] [id number] Self S [id number] [employer] Part B [id number] [id number] Self S [id number] [employer] Part B [id number] 2.0.1.263347.3.227.99.4595.3794.0 Self S [id number] [employer] Commercial [id number] Self BS [employer] [id number] 2.0.1.130381.3.227.99.4595.3794.0 Self S [id number] [employer] [place] [employer] Commercial [id number] 2.0.1.334597.3.227.99.4595.3794.0 Self S [id number] [place] [employer] Commercial [id number] 2.0.1.298946.3.227.99.4595.3794.0 Self S [id number] [facility] Trad/MX Commercial [id number] 2.0.1.233856.3.227.99.4595.3794.0 Self S [id number] [facility]/MX Medigap Part B [id number] Self [id number] [facility] [employer] Commercial [id number] 2.0.1.128892.3.227.99.4595.3794.0 Self S [id number] [facility] [employer] Commercial [id number] 2.0.1.167239.3.227.99.4595.3794.0 Self S [id number] [facility] [employer] Commercial [id number] 2..1.284905.3.227.99.4595.3794.0 Self S [id number] MEDICARE [id number] SP [id number] C23 MEDICARE A [id number] Self [id number] [id number] WPS For Life Medigap Part B [id number] Self [id number] Medicare [facility] Govt Servic Medicare Primary [id number] Self [id number] Medicare [facility] Medicare Primary [id number] 2.0.1.835753.3.227.99.8646.2797.0 Self [id number] WPS For Life Medigap Part B [id number] 2.16.840.1.083785.3.227.99.4595.3794.0 Self [id number] Medicare Natl Govt Servic Medicare Primary [id number] 2.16.840.1.106123.3.227.99.4595.3794.0 Self 9 [id number] MEDICARE A [id number] Self [id number] A WPS For Life Medigap Part B [id number] 2.16840.1.522644.3.227.99.4595.3794.0 Self [id number] Medicare Natl Govt Servic Medicare Primary [id number] 2.16.840.1.408181.3.227.99.4595.3794.0 Self 9 [id number] WPS For Life Medigap Part B [id number] 2.16840.1.065428.3.227.99.4595.3794.0 Self [id number] Medicare Natl Govt Servic Medicare Primary [id number] 2.16840.1.683369.3.227.99.4595.3794.0 Self 9 [id number] Medicare C [id number] SELF [id number] C23 Medicare C [id number] SELF [id number] C23 MEDICARE [id number] SP [id number] [place] Medicare Primary [id number] 2.840.1.860860.3.227.99.8646.2797.0 Self 5 [id number] Medicare - [place] Medicare Primary [id number] 2.16840.1.771256.3.227.99.177.91834.0 Self 5 [id number] WPS For Life Medigap Part B [id number] 2.16840.1.032954.3.227.99.4595.3794.0 Self [id number] Medicare Natl Govt Servic Medicare Primary [id number] 2.16840.1.624276.3.227.99.4595.3794.0 Self 5 [id number] WPS For Life Medigap Part B [id number] 2.16.840.1.723118.3.227.99.4595.3794.0 Self [id number] Medicare Natl Govt Servic Medicare Primary [id number] 2.16.840.1.012523.3.227.99.4595.3794.0 Self 5 [id number] WPS For Life Medigap Part B [id number] 2.16840.1.502352.3.227.99.4595.3794.0 Self 5 [id number] Medicare Natl Govt Servic Medicare Primary [id number] 2.16840.1.458247.3.227.99.4595.3794.0 Self 5 [id number] WPS For Life Medigap Part B [id number] 2.840.1.529738.3.227.99.4595.3794.0 Self [id number] Medicare Natl Govt Servic Medicare Primary [id number] 2.840.1.303097.3.227.99.4595.3794.0 Self 5 [id number] WPS For Life Medigap Part B [id number] 2.16840.1.750018.3.227.99.4595.3794.0 Self 5 [id number] Medicare Natl Govt Servic Medicare Primary [id number] 2.840.1.495150.3.227.99.4595.3794.0 Self 5 [id number] Medicare Natl Gov't Servi Medigap Part B [id number] 2.16840.1.308473.3.227.99.1767.333.0 Self 50 [id number] WPS For Life Medigap Part B [id number] 2.16840.1.167483.3.227.99.4595.3794.0 Self 5 [id number] Medicare Natl Govt Servic Medicare Primary [id number] 2.16840.1.758641.3.227.99.4595.3794.0 Self 5 [id number] WPS For Life Medigap Part B [id number] 2.16.840.1.020337.3.227.99.4595.3794.0 Self 5 [id number] Medicare Natl Govt Serv Medicare Primary [id number] 2.16.840.1.473666.3.227.99.4595.3794.0 Self [id number] - [facility] Medicare Primary [id number] 2.16.840.1.016114.3.227.99.177.25863.0 Self 5 [id number] WPS For Life Medigap Part B [id number] 2.16.840.1.009578.3.227.99.4595.3794.0 Self 5 [id number] Medicare Natl Govt Serv Medicare Primary [id number] 2.16840.1.076343.3.227.99.4595.3794.0 Self 5 [id number] WPS For Life Medigap Part B [id number] Self Medicare Natl Govt Serv Medicare Primary [id number] Self Medicare Medicare Primary [id number] Self [place] Medigap Part B [id number] 2.0.1.493902.3.227.99.177.01663.0 Self S [id number] [employer] Medigap Part B [id number] 2.16.840.1.94006 3.3.227.99.8646.2797.0 Self [id number] BC/[place] Medigap Part B [id number] 2.16840.1.936079.3.227.99.177.37886.0 Self S [id number] [employer] Medigap Part B [id number] 2.16840.1.93059 3.3.227.99.8646.2797.0 Self [id number] [facility] [employer] Commercial [id number] Self P Commercial [id number] 2.16.840.1.402446.3.227.99.1767.333.0 Self [id number] P Health Maintenance Organization (HMO) [id number] 0 2..840.1.748836.3.227.99.8646.2797.0 Self [id number] [facility] Health Maintenance Organization (HMO) [id number] 0 2..840.1.549040.3.227.99.177.81397.0 Self [id number] [facility] Healthcare Commercial [id number] Self [id number] FOR LIFE U [id number] Self [id number] FOR LIFE U [id number] Self [id number] [facility] [place] A WAIC C [id number] SELF [id number] For Life F [id number] SELF [id number] Medicare C [id number] SELF [id number] A FOR LIFE U [id number] Self [id number] FOR LIFE U [id number] Self [id number] MEDICARE [id number] Jaimie [id number] C23 [employer] Commercial [id number] 2.0.1.689015.3.227 .99.4595.3794.0 Self [id number] WPS For Life Medigap Part B [id number] 2.840.1.388739.3.227.99.8646.2797.0 Self [id number] DO Not Use (Now #114) Commercial [id number] 2.840.1.787156.3.227.99.4595.3794.0 Self [id number] MEDICARE C [id number] S [id number] A MVP/Preferred Care/[employer] Medigap Part B [id number] Self DO Not Use (Now #114) Commercial [id number] 2.840.1.484422.3.227.99.4595.3794.0 Self [id number] [employer] Commercial [id number] 2.840.1.475464.3.227 .99.4595.3794.0 Self [id number] [employer] (2017) Health Maintenance Organization (HMO) [id number] 2.840.1.189453.3.227.99.8646.2797.0 Self [id number] DO Not Use (Now #114) Commercial [id number] 2.0.1.436314.3.227.99.4595.3794.0 Self 5 [id number] For Life Medigap Part B [id number] Self [id number] Standard Commercial [id number] 2.0.1.356427.3.227. 99.177.74486.0 Self [id number] For Life Reg 1 Medigap Part B [id number] 2.0.1.357910.3.227.99.177.47922.0 Self 5 [id number] Select (2017) Health Maintenance Organization (HMO) 5075 13548 2.840.1.304826.3.227.99.8646.2797.0 Self 5 [id number] WPS For Life Medigap Part B [id number] 2.0.1.084354.3.227.99.8646.2797.0 Self 5 [id number] FOR LIFE O [id number] S 0 [id number] Standard Commercial [id number] 2.0.1.955012.3.227. 99.177.35120.0 Self [id number] For Life Reg 1 Medigap Part B [id number] 2.0.1.381514.3.227.99.177.50046.0 Self 5 [id number] FOR LIFE [id number] [employer] Commercial [id number] 2.840.1.394742.3.227 .99.4595.3794.0 Self [id number] [employer] Commercial [id number] .1.747454.3.227 .99.4595.3794.0 Self [id number] MEDICARE PART A M [id number] S 507 [id number] [employer] Commercial [id number] 12.26.830.1.679075.3.227 .99.4595.3794.0 Self [id number] DO Not Use (Now #114) Commercial [id number].[id number] Self [id number] FOR LIFE O [id number] S 0 [id number] FOR LIFE O [id number] S [id number] [employer] Commercial [id number] 12.26.830.1.114059.3.227 .99.4595.3794.0 Self [id number] MEDICARE [id number] Jaimie [id number] A [employer] Commercial [id number] .1.950044.3.227 .99.4595.3794.0 Self [id number] [employer] Commercial 2412 Self [id number] Jaimie [id number] [employer] Commercial [id number] .1.764825.3.227 .99.4595.3794.0 Self [id number] MEDICARE M [id number] S [id number] A [id number] A [place] Medigap Part B [id number] .1.789457.3.227.99.1767.333.0 Self SA [id number] For Life WPS Medigap Part B [id number] .1.957646.3.227.99.1767.333.0 Self 50 [id number] Problems, Conditions, and Diagnoses Code Display Name Description Problem Type Effective Dates Data Source(s) R33.9 Retention of urine, unspecified Retention of urine, un specified Diagnosis 10/16/2020 11:57:44 AM [facility] Surgeries/Procedures Procedure Description Date Indications Data Source(s) OFFICE OUTPATIENT VISIT 25 MINUTES 08/29/2021 12:00:00 AM EDT [facility] ([facility], ) [facility] HOSPITAL CARE/DAY 25 MINUTES 07/28/2021 12:00:00 AM EDT [facility] ([facility], ) OFFICE OUTPATIENT VISIT 25 MINUTES 07/18/2021 12:00:00 AM EDT [facility] ([facility], ) OFFICE OUTPATIENT VISIT 25 MINUTES 07/03/2021 12:00:00 AM EDT [facility] ([facility], ) [facility] HOSPITAL CARE/DAY 25 MINUTES 06/21/2021 12:00:00 AM EDT [facility] ([facility], ) OFFICE OUTPATIENT VISIT 25 MINUTES 06/19/2021 12:00:00 AM EDT [facility] ([facility]) OFFICE OUTPATIENT NEW 30 MINUTES 06/16/2021 12:00:00 A M EDT [facility] ([facility]) OFFICE OUTPATIENT VISIT 25 MINUTES 05/23/2021 12:00:00 AM EDT [facility] ([facility]) OFFICE OUTPATIENT VISIT 25 MINUTES 05/21/2021 12:00:00 AM EDT [facility] ([facility], ) [facility] SRV W/I 7 Days Of DC, Comm W/I 2 Dys Med Rec 05/09/2021 12:00:00 AM EDT [facility] ([facility] ) [facility] HOSPITAL CARE/DAY 25 MINUTES 05/04/2021 12:00:00 AM EDT [facility] ([facility], ) [facility] HOSPITAL CARE/DAY 25 MINUTES 05/03/2021 12:00:00 AM EDT [facility] ([facility], ) [facility] HOSPITAL CARE/DAY 25 MINUTES 05/02/2021 12:00:00 AM EDT [facility] ([facility], ) [facility] HOSPITAL CARE/DAY 25 MINUTES 05/01/2021 12:00:00 AM EDT [facility] ([facility], ) INITIAL HOSPITAL CARE/DAY 30 MINUTES 04/29/2021 12:00: 00 AM EDT [facility] ([facility], ) OFFICE OUTPATIENT NEW 30 MINUTES 03/12/2021 12:00:00 A M EDHaim FAYE ([facility]) OFFICE OUTPATIENT VISIT 25 MINUTES 03/08/2021 12:00:00 AM EDT YUNIER ([facility]) OFFICE OUTPATIENT VISIT 25 MINUTES 12/25/2020 12:00:00 AM EST YUNIER ([facility]) OFFICE OUTPATIENT VISIT 25 MINUTES 12/07/2020 12:00:00 AM EST YUNIER ([facility]) COMPLEX UROFLOMETRY <td>COMPLEX UROFLOWMETRY</td ><td>Routine</td><td>10/16/2020 12:29 PM EST</td><td> Urinary retention</td><td></td> 10/16/2020 12:29:28 PM EST Urinary retention [facility] Urinary retention MARTHA POST-VOIDING RESIDUAL URINE&/BLDR CAP <td>BLADDER SCAN, POST VOID</td><td>Routine</td><td>10/16/2020 12:20 PM EST</td><td> H/O urethral stricture</td><td></td> 10/16/2020 12:20:48 PM EST H/O urethral stricture [facility] H/O urethral stricture Spirometry 08/29/2020 12:00:00 AM EDT Michele WEBB ([facility]) Results ID Date Data Source [id number] 08/29/2021 10:13:00 AM EDT YUNIER ([facility]) Name Value Range Interpretation Code Description Data Steffi rce(s) Supporting Document(s) Bacteria identified in Sputum by Aerobe culture Laboratory test result Normal (applies to non-numeric results) YUNIER ([facility], ) QUALITY: GOOD MANY WBCS FEW EPITHELIAL CELLS MANY GRAM POSITIVE COCCI IN PAIRS AND CHAINS FEW GRAM POSITIVE RODS ID Date Data Source [id number] 07/27/2021 02:38:00 PM EDT [facility] Name Value Range Interpretation Code Description Data Steffi rce(s) Supporting Document(s) SARS-CoV-2 (COVID 19) NEGATIVE - SARS-CoV-2 (COVID19) [facility] This lab was ordered by [facility] a nd reported by [facility]. ID Date Data Source [id number] 07/18/2021 12:57:00 PM EDT [facility] ([facility]) Name Value Range Interpretation Code Description Data Steffi rce(s) Supporting Document(s) Leukocytes [#/volume] in Blood by Automated count 11.5 x10*3/UL 4.1-1 0.9 [facility] ([facility]) NOTE: RESULT VERIFIED. Erythrocytes [#/volume] in Blood by Automated count 5.26 x10*6/UL 4.2 0-6.30 [facility] ([facility]) Hemoglobin [Mass/volume] in Blood 11.7 g/dL 12.0-18.0 [facility] ([facility]) Hematocrit [Volume Fraction] of Blood by Automated count 36.5 % 3 7.0-51.0 [facility] ([facility]) MCV 69.4 fL 80.0-97.0 [facility] MCH 22.3 pg 26.0-32.0 [facility] MCHC 32.1 g/dL 31.0-38.0 [facility] Erythrocyte distribution width [Ratio] by Automated count 15.6 % 11.6-13.7 [facility] ([facility]) Platelets [#/volume] in Blood by Automated count 281 x10*3/UL 140-440 [facility] ([facility]) MPV 7.2 FL 7.8-11.0 [facility] Lymph % 5.0 % 10.0-58.5 [facility] ([facility]) Mid % 1.8 % 1.7-9.3 [facility] Lymph # 0.5 x10*3/UL 0.6-4.1 [facility] ([facility]) Neut % 93.2 % 37.0-92.0 [facility] Mid # 0.2 x10*3/UL 0.1-0.6 [facility] ([facility]) Neut # 10.8 x10*3/UL 2.0-7.[address] [facility] ([facility]) ID Date Data Source [id number] 07/18/2021 12:57:00 PM EDT [facility] ([facility]) Name Value Range Interpretation Code Description Data Steffi rce(s) Supporting Document(s) Alkaline phosphatase isoenzyme [Units/volume] in Serum or Pl asma 81 mg/dL 46-116 [facility] ([facility]) Aspartate aminotransferase [Enzymatic activity/volume] in Serum or Plasma 33 U/L 15-37 [facility] ([facility] ) Total Bilirubin 0.3 mg/dL 0.2-1.0 [facility] ([facility]) Albumin [Mass/volume] in Serum or Plasma 2.9 g/dL 3.4-5.0 [facility] ([facility]) Alanine aminotransferase [Enzymatic activity/volume] in Seru m or Plasma 69 U/L 12-78 [facility] Proteinase 3 Ab [Units/volume] in Serum 6.6 g/dL 6.4-8.2 [facility] ([facility]) A/G Ratio 0.78 CALC 1.00-1.90 [facility] Direct Bilirubin 0.1 mg/dL 0.0-0.2 [facility] ([facility]) ID Date Data Source [id number] 07/09/2021 08:00:00 AM EDT [facility] ([facility]) Name Value Range Interpretation Code Description Data Steffi rce(s) Supporting Document(s) Urine Color Laboratory test result MEDEN T ([facility]) Urine Appearance Laboratory test result [facility] ([facility]) Urine PH 6.5 units 5.0-9.0 [facility] Urine Leukocytes Laboratory test result [facility] ([facility]) Specific gravity of Urine 1.015 1.005-1.030 AR DENT ([facility]) Urine Protein Laboratory test result 0-0 [facility] ([facility]) Urine Blood Laboratory test result [facility] T ([facility]) Glucose [Presence] in Urine [facility] Urine Nitrite Laboratory test result [facility] ([facility]) Urine Ketone Laboratory test result MEDE NT ([facility]) Bilirubin.total [Mass/volume] in Serum or Plasma Laboratory test resu lt [facility] ([facility]) Urine Urobilinogen 0.2 mg/dL 0.2-1.0 [facility] ([facility]) ID Date Data Source [id number] 07/06/2021 02:37:00 PM EDT [facility] ([facility]) Name Value Range Interpretation Code Description Data Steffi rce(s) Supporting Document(s) Neutrophils 88 % 28-66 [facility] ([facility]) Lymphocytes 5 % 16-44 [facility] ([facility]) Monocytes 7 % 0-5 [facility] Platelet Estimate Laboratory test result [facility] ([facility]) ID Date Data Source [id number] 07/06/2021 02:36:00 PM EDT [facility] ([facility]) Name Value Range Interpretation Code Description Data Steffi rce(s) Supporting Document(s) Glucose [Mass/volume] in Serum or Plasma 107 mg/dL 74-99 [facility] ([facility]) 100-125 mg/dL PRE-DIABETES/FASTING >126 mg/dL DIABETES/FASTING Creatinine 0.7 mg/dL 0.6-1.3 [facility] ([facility] Urea nitrogen [Mass/volume] in Serum or Plasma 28 mg/dL 7-18 [facility] ([facility]) Sodium [Moles/volume] in Serum or Plasma 137 meq/L 136-145 [facility] ([facility]) Chloride [Moles/volume] in Serum or Plasma 104 meq/L 98-107 [facility] ([facility]) Potassium [Moles/volume] in Serum or Plasma 4.5 meq/L 3.5-5.1 [facility] ([facility]) Calcium [Mass/volume] in Serum or Plasma 8.8 mg/dL 8.5-10.1 [facility] ([facility]) Carbon dioxide, total [Moles/volume] in Serum or Plasma 31 meq/L 21 -32 [facility] ([facility]) Alkaline phosphatase isoenzyme [Units/volume] in Serum or Pl asma 82 mg/dL 46-116 [facility] ([facility]) Aspartate aminotransferase [Enzymatic activity/volume] in Serum or Plasma 24 U/L 15-37 [facility] ([facility] ) Total Bilirubin 0.3 mg/dL 0.2-1.0 [facility] ([facility]) Albumin [Mass/volume] in Serum or Plasma 2.8 g/dL 3.4-5.0 [facility] ([facility]) Alanine aminotransferase [Enzymatic activity/volume] in Seru m or Plasma 80 U/L 12-78 [facility] ([facility]) Proteinase 3 Ab [Units/volume] in Serum 6.8 g/dL 6.4-8.2 [facility] ([facility]) A/G Ratio 0.70 CALC 1.00-1.90 [facility]) Glomerular filtration rate/1.73 sq M pre dicted among non-blacks [Volume Rate/Area] in Serum or Plasma by Creatinine-based formula (MDRD) Laboratory test result [facility] Glomerular filtration rate/1.73 sq M pre dicted among blacks [Volume Rate/Area] in Serum or Plasma by Creatinine-based formula (MDRD) Laboratory test result [facility] ([facility]) <content>CHRONIC KIDNEY DISEASE STAGING PER NKF</content>
<content></content>
<content>STAGE I & II GFR >= 60 NORMAL TO MILDLY DECREASED</content>
<content>STAGE III GFR 30-59 MODERATELY DECREASED</content>
<content>STAGE IV GFR 15-29 SEVERELY DECREASED</content>
<content>STAGE V GFR <15 VERY LITTLE GFR LEFT</content>
<content>ESRD GFR <15 ON BIOMEDICAL ANALYTICAL SCIENTIST</content>
<content></content> ID Date Data Source [id number] 07/06/2021 02:36:[address] [facility] Name Value Range Interpretation Code Description Data Steffi rce(s) Supporting Document(s) Leukocytes [#/volume] in Blood by Automated count 18.1 x10*3/UL 4.1-1 0.9 [facility] ([facility]) NOTE: RESULT VERIFIED .MANUAL DIFFERENTIAL SENT TO [facility] FOR MAREN IFICATION. Erythrocytes [#/volume] in Blood by Automated count 4.93 x10*6/UL 4.2 0-6.30 [facility] ([facility]) Hemoglobin [Mass/volume] in Blood 11.4 g/dL 12.0-18.0 [facility] ([facility]) MCH 23.1 pg 26.0-32.0 [facility] MCV 69.8 fL 80.0-97.0 [facility] Hematocrit [Volume Fraction] of Blood by Automated count 34.4 % 3 7.0-51.0 [facility] ([facility]) Erythrocyte distribution width [Ratio] by Automated count 16.3 % 11.6-13.7 [facility] ([facility]) MCHC 33.1 g/dL 31.0-38.0 [facility]) Platelets [#/volume] in Blood by Automated count 210 x10*3/UL 140-440 [facility] ([facility]) MPV 7.0 FL 7.8-11.0 [facility] Lymph % 3.0 % 10.0-58.5 [facility] Neut % 89.0 % 37.0-92.0 [facility] Mid % 8.0 % 1.7-9.3 [facility] Mid # 1.5 x10*3/UL 0.1-0.6 [facility] ([facility]) Lymph # 0.5 x10*3/UL 0.6-4.1 [facility] ([facility]) Neut # 16.1 x10*3/UL 2.0-7.8 [facility] ([facility]) ID Date Data Source [id number] 06/20/2021 11:28:00 PM EDT [facility] ([facility]) Name Value Range Interpretation Code Description Data Steffi rce(s) Supporting Document(s) ABG pH (Arterial) 7.471 units 7.350-7.450 [facility] ( [facility]) ABG Partial Pressure O2 107.9 mmHg 75.0-100.0 MEDE NT ([facility]) ABG Partial Pressure Co2 38.5 mmHg 35.0-45.0 MEDEN T ([facility]) ABG Total Co2 28.6 meq/L 23.0-31.0 [facility] ([facility]) ABG Hco3 27.5 meq/L 22.0-26.0 [facility] ABG Base Excess 3.6 [facility] ([facility]) ABG Standard Hco3 27.7 meq/L 22.0-26.0 [facility] ([facility]) ABG O2 Saturation 98.3 % 95.0-99.0 [facility] ([facility]) ID Date Data Source [id number] 06/20/2021 06:15:00 PM EDT [facility] ([facility]) Name Value Range Interpretation Code Description Data Steffi rce(s) Supporting Document(s) Laboratory test finding (navigational concept) 33.0 % 38.0-51.0 [facility] ([facility]) Laboratory test finding (navigational concept) 141 mg/dL 70-105 [facility] ([facility]) Laboratory test finding (navigational concept) 136 meq/L 136-145 [facility] ([facility]) Laboratory test finding (navigational concept) 4.3 meq/L 3.5-5.1 [facility] ([facility]) Laboratory test finding (navigational concept) 99 meq/L 98-109 [facility] ([facility]) Laboratory test finding (navigational concept) 4.7 mg/dL 4.5-5.3 [facility] ([facility]) Laboratory test finding (navigational concept) 24.0 MM/L 23.0-27.0 [facility] ([facility]) Laboratory test finding (navigational concept) 28 mg/dL 8-26 [facility] ([facility]) Laboratory test finding (navigational concept) 0.4 mg/dL 0.6-1.3 [facility] ([facility]) ID Date Data Source [id number] 06/20/2021 05:58:00 PM EDT [facility] ([facility]) Name Value Range Interpretation Code Description Data Steffi rce(s) Supporting Document(s) White Blood Count 8.8 10 4.0-10.0 [facility] ([facility]) Hemoglobin 10.2 g/dL 13.5-17.5 [facility] ([facility]) Red Blood Count 4.60 10 4.30-6.10 [facility] ([facility]) Mean Corpuscular Volume 72.2 fl 80.0-96.0 [facility] ([facility]) Hematocrit 33.2 % 42.0-52.0 [facility] ([facility]) Mean Corpuscular HGB Conc 30.7 g/dL 32.0-36.5 MEDE NT ([facility]) Mean Corpuscular Hemoglobin 22.2 pg 27.0-33.0 ME DENT ([facility]) Platelet Count, Automated 330 10 150-450 MEDE NT ([facility]) Red Cell Distribution Width 16.0 % 11.5-14.5 ME DENT ([facility]) Neutrophils % 87.3 % 36.0-66.0 [facility] ([facility]) [place] % 5.3 % 2.0-8.0 [facility] Lymph % 6.3 % 24.0-44.0 [facility] Baso % 0.3 % 0.0-1.0 [facility] Eos % 0.0 % 0.0-3.0 [facility] Nucleated Red Blood Cell % 0.0 % 0-0 [facility] ([facility]) Immature Granulocyte % 0.8 % 0-3.0 [facility] ([facility]) Neutrophils # 7.7 10 1.5-8.5 [facility] ([facility]) [place] # 0.5 10 0.0-0.8 [facility] Lymph # 0.6 10 1.5-5.0 [facility] Baso # 0.0 10 0.0-0.2 [facility] Eos # 0.0 10 0.0-0.5 [facility] ID Date Data Source [id number] 06/20/2021 05:58:00 PM EDT [facility] ([facility]) Name Value Range Interpretation Code Description Data Steffi rce(s) Supporting Document(s) Lactate [Mass/volume] in Serum or Plasma 1.1 mmol/L 0.4-2.0 [facility] ([facility]) Y/N query for Sepsis Lactate Rule: Y ID Date Data Source [id number] 06/20/2021 05:58:00 PM EDT [facility] ([facility]) Name Value Range Interpretation Code Description Data Steffi rce(s) Supporting Document(s) Alt/SGPT 244 U/L 12-78 [facility] Ast/Sgot 115 U/L 7-37 [facility] ([facility]) Alkaline Phosphatase 143 U/L 45-117 [facility] ([facility]) Bilirubin,Total 0.3 mg/dL 0.2-1.0 [facility] ([facility]) Bilirubin,Direct 0.1 mg/dL 0.0-0.2 [facility] ([facility]) Total Protein 6.5 GM/DL 6.4-8.2 [facility] ([facility]) Albumin 2.4 GM/DL 3.2-5.2 [facility] Albumin/Globulin Ratio 0.6 [facility] ([facility]) ID Date Data Source [id number] 06/20/2021 05:58:00 PM EDT [facility] ([facility]) Name Value Range Interpretation Code Description Data Steffi rce(s) Supporting Document(s) Natriuretic peptide.B prohormone N-Terminal [Mass/volu me] in Serum or Plasma 698 pg/mL [facility] ([facility] ) Thyrotropin [Units/volume] in Serum or Plasma by Detec tion limit <= 0.05 mIU/L 0.820 uIU/ML 0.358-3.[address] [facility] ID Date Data Source [id number] 06/20/2021 05:58:[address] [facility] Name Value Range Interpretation Code Description Data Steffi rce(s) Supporting Document(s) Influenza B Amplification Laboratory test result [facility] ([facility]) Negative results do not preclude influen za or RSV virus infection and should not be used as the sole basis for treatment or other patient management decisions. Influenza A Amplification Laboratory test result [facility] ([facility] Negative results do not preclude influen za or RSV virus infection and should not be used as the sole basis for treatment or other patient management decisions. RSV Amplification Laboratory test result [facility] ([facility] Negative results do not preclude influen za or RSV virus infection and should not be used as the sole basis for treatment or other patient management decisions. Laboratory test finding (navigational concept) Laboratory test result [facility] ([facility] A false negative result may occur if a s pecimen is improperly collected, transported or handled. False [...] pathogens. DISCLAIMER: Testing was performed using the [employer] SARS-CoV-2 test. This test was developed and its performance characteristics determined by [employer]. This test has not been FDA cleared [...] the authorization is terminated or revoked sooner. ID Date Data Source [id number] 06/20/2021 05:58:00 PM EDT [facility] Name Value Range Interpretation Code Description Data Steffi rce(s) Supporting Document(s) SARS coronavirus 2 RNA [Presence] in Res piratory specimen by MICHELLE with probe detection [facility] This lab was ordered by [facility] a nd reported by [facility]. ID Date Data Source [id number] 06/19/2021 02:52:00 PM EDT [facility] ([facility]) Name Value Range Interpretation Code Description Data Steffi rce(s) Supporting Document(s) Glucose [Mass/volume] in Serum or Plasma 149 mg/dL 74-99 [facility] ([facility]) 100-125 mg/dL PRE-DIABETES/FASTING >126 mg/dL DIABETES/FASTING Urea nitrogen [Mass/volume] in Serum or Plasma 30 mg/dL 7-18 [facility] ([facility]) Creatinine 0.8 mg/dL 0.6-1.3 [facility] ([facility]) Sodium [Moles/volume] in Serum or Plasma 134 meq/L 136-145 [facility] ([facility]) Potassium [Moles/volume] in Serum or Plasma 4.8 meq/L 3.5-5.1 [facility] ([facility]) Calcium [Mass/volume] in Serum or Plasma 9.4 mg/dL 8.5-10.1 [facility] ([facility]) Chloride [Moles/volume] in Serum or Plasma 99 meq/L 98-107 [facility] ([facility]) Carbon dioxide, total [Moles/volume] in Serum or Plasma 28 meq/L 21 -32 [facility] ([facility]) Total Bilirubin 0.5 mg/dL 0.2-1.0 [facility] ([facility]) Alkaline phosphatase isoenzyme [Units/volume] in Serum or Pl asma 175 mg/dL 46-116 [facility] ([facility]) Alanine aminotransferase [Enzymatic activity/volume] in Seru m or Plasma 294 U/L 12-78 [facility] ([facility]) Aspartate aminotransferase [Enzymatic activity/volume] in Serum or Plasma 169 U/L 15-37 [facility] ([facility] ) Proteinase 3 Ab [Units/volume] in Serum 7.5 g/dL 6.4-8.[address] [facility] ([facility]) Albumin [Mass/volume] in Serum or Plasma 2.5 g/dL 3.4-5.0 [facility] ([facility]) A/G Ratio 0.50 CALC 1.00-1.90 [facility] Glomerular filtration rate/1.73 sq M pre dicted among non-blacks [Volume Rate/Area] in Serum or Plasma by Creatinine-based formula (MDRD) Laboratory test result [facility] ([facility] Glomerular filtration rate/1.73 sq M pre dicted among blacks [Volume Rate/Area] in Serum or Plasma by Creatinine-based formula (MDRD) Laboratory test result [facility]) <content>CHRONIC KIDNEY DISEASE STAGING PER NKF</content>
<content></content>
<content>STAGE I & II GFR >= 60 NORMAL TO MILDLY DECREASED</content>
<content>STAGE III GFR 30-59 MODERATELY DECREASED</content>
<content>STAGE IV GFR 15-29 SEVERELY DECREASED</content>
<content>STAGE V GFR <15 VERY LITTLE GFR LEFT</content>
<content>ESRD GFR <15 ON BIOMEDICAL ANALYTICAL SCIENTIST</content>
<content></content> ID Date Data Source [id number] 06/19/2021 02:52:[address] [facility] ([facility] Name Value Range Interpretation Code Description Data Steffi rce(s) Supporting Document(s) Erythrocytes [#/volume] in Blood by Automated count 4.70 x10*6/UL 4.2 0-6.[address] [facility] ([facility]) Leukocytes [#/volume] in Blood by Automated count 10.3 x10*3/UL 4.1-1 0.9 [facility] ([facility]) Hemoglobin [Mass/volume] in Blood 11.2 g/dL 12.0-18.0 [facility] ([facility]) NOTE: RESULT VERIFIED. Hematocrit [Volume Fraction] of Blood by Automated count 33.0 % 3 7.0-51.0 [facility] ([facility]) MCH 23.8 pg 26.0-32.0 [facility] ([facility]) MCV 70.2 fL 80.0-97.0 [facility] ([facility]) Erythrocyte distribution width [Ratio] by Automated count 15.0 % 11.6-13.7 [facility] MCHC 33.9 g/dL 31.0-38.0 [facility] ([facility]) Platelets [#/volume] in Blood by Automated count 332 x10*3/UL 140-440 [facility] ([facility]) MPV 7.1 FL 7.8-11.0 [facility] ([facility]) Lymph % 4.7 % 10.0-58.5 [facility] ([facility]) Mid % 1.6 % 1.7-9.3 [facility] ([facility]) Neut % 93.7 % 37.0-92.0 [facility] ([facility]) Lymph # 0.4 x10*3/UL 0.6-4.1 [facility] ([facility]) Mid # 0.3 x10*3/UL 0.1-0.6 [facility] ([facility]) Neut # 9.6 x10*3/UL 2.0-7.8 [facility] ([facility]) ID Date Data Source [id number] 06/16/2021 12:00:00 AM EDT [facility] Name Value Range Interpretation Code Description Data Steffi rce(s) Supporting Document(s) SARS-CoV2 Rapid Antigen Negative [facility] This lab was reported by [facility]. ID Date Data Source [id number] 06/13/2021 12:00:00 AM EDT [facility] Name Value Range Interpretation Code Description Data Steffi rce(s) Supporting Document(s) SARS-CoV2 Rapid Antigen Negative [facility] This lab [facility] and reported by [facility]. ID Date Data Source [id number] 05/09/2021 10:24:00 AM EDT [facility] ([facility]) Name Value Range Interpretation Code Description Data Steffi rce(s) Supporting Document(s) Glucose [Mass/volume] in Serum or Plasma 87 mg/dL 74-99 [facility] ([facility]) 100-125 mg/dL PRE-DIABETES/FASTING >126 mg/dL DIABETES/FASTING Sodium [Moles/volume] in Serum or Plasma 136 meq/L 136-145 [facility] ([facility]) Creatinine 0.8 mg/dL 0.6-1.3 [facility] ([facility]) Urea nitrogen [Mass/volume] in Serum or Plasma 14 mg/dL 7-18 [facility] ([facility]) Potassium [Moles/volume] in Serum or Plasma 3.6 meq/L 3.5-5.1 [facility] ([facility]) Chloride [Moles/volume] in Serum or Plasma 100 meq/L 98-107 [facility] ([facility]) Carbon dioxide, total [Moles/volume] in Serum or Plasma 26 meq/L 21 -32 [facility] ([facility]) Calcium [Mass/volume] in Serum or Plasma 8.4 mg/dL 8.5-10.1 [facility] ([facility]) NOTE: RESULT VERIFIED. Glomerular filtration rate/1.73 sq M pre dicted among blacks [Volume Rate/Area] in Serum or Plasma by Creatinine-based formula (MDRD) Laboratory test result [facility] <content>CHRONIC KIDNEY DISEASE STAGING PER NKF</content>
<content></content>
<content>STAGE I & II GFR >= 60 NORMAL TO MILDLY DECREASED</content>
<content>STAGE III GFR 30-59 MODERATELY DECREASED</content>
<content>STAGE IV GFR 15-29 SEVERELY DECREASED</content>
<content>STAGE V GFR <15 VERY LITTLE GFR LEFT</content>
<content>ESRD GFR <15 ON BIOMEDICAL ANALYTICAL SCIENTIST</content>
<content></content> Glomerular filtration rate/1.73 sq M pre dicted among non-blacks [Volume Rate/Area] in Serum or Plasma by Creatinine-based formula (MDRD) Laboratory test result [facility] ([facility] ) ID Date Data Source [id number] 05/09/2021 10:24:00 AM EDT [facility] ([facility]) Name Value Range Interpretation Code Description Data Steffi rce(s) Supporting Document(s) Leukocytes [#/volume] in Blood by Automated count 16.6 x10*3/UL 4.1-1 0.9 [facility] ([facility]) NOTE: RESULT VERIFIED. Erythrocytes [#/volume] in Blood by Automated count 4.62 x10*6/UL 4.2 0-6.30 [facility] ([facility]) Hemoglobin [Mass/volume] in Blood 11.1 g/dL 12.0-18.0 [facility] ([facility]) Hematocrit [Volume Fraction] of Blood by Automated count 33.0 % 3 7.0-51.0 [facility] ([facility]) MCV 71.5 fL 80.0-97.0 [facility] MCHC 33.6 g/dL 31.0-38.0 [facility] ([facility]) Erythrocyte distribution width [Ratio] by Automated count 14.7 % 11.6-13.7 [facility] ([facility]) MCH 24.1 pg 26.0-32.0 [facility] Platelets [#/volume] in Blood by Automated count 324 x10*3/UL 140-440 [facility] ([facility]) MPV 7.5 FL 7.8-11.0 [facility] Lymph % 5.9 % 10.0-58.5 [facility] Mid % 1.9 % 1.7-9.3 [facility] Lymph # 0.9 x10*3/UL 0.6-4.1 [facility] ([facility]) Neut % 92.2 % 37.0-92.0 [facility] Mid # 0.4 x10*3/UL 0.1-0.6 [facility] ([facility]) Neut # 15.3 x10*3/UL 2.0-7.8 [facility] ([facility]) ID Date Data Source [id number] 04/28/2021 01:40:00 PM EDT [facility] ([facility]) Name Value Range Interpretation Code Description Data Steffi rce(s) Supporting Document(s) Respiratory Panel Laboratory test result [facility]) This respiratory PCR panel detects Influ eva A H1, H3 and 2009 H1 viruses, Influenza B virus, Resp iratory Syncytial Virus, Human metapneumovirus, Parainfluenza virus 1, 2, 3 and 4, Adenovirus, Rhinovirus/Enterovirus, Coronavirus HKU1, NL63, OC43, 229E and SARS-CoV-2 (COVID 19), Bordetella pertussis, Bordetella parapertussis, Mycoplasma pneumoniae and Chlamydia pneumoniae. NEGATIVE by MULTIPLEXED NUCLEIC ACID PCR SARS-CoV-2 (COVID 19) NEGATIVE - SARS-CoV-2 (COVID19) ID Date Data Source [id number] 04/28/2021 01:40:00 PM EDT [facility] ([facility] Name Value Range Interpretation Code Description Data Steffi rce(s) Supporting Document(s) Platelets [#/volume] in Blood by Estimate Laboratory test result [facility] ([facility]) ID Date Data Source [id number] 04/28/2021 01:40:00 PM EDT [facility] ([facility] Name Value Range Interpretation Code Description Data Steffi rce(s) Supporting Document(s) Neutrophils 62 % 28-66 [facility] ([facility]) Bands 30 % [facility] Lymphocytes 1 % 16-44 [facility] ([facility]) Eosinophils 2 % 0-3 [facility] ([facility]) Monocytes 5 % 0-5 [facility] ([facility]) Microcytosis Laboratory test result [facility] ([facility]) Anisocytosis Laboratory test result [facility] ([facility]) ID Date Data Source [id number] 04/28/2021 01:40:00 PM EDT [facility] ([facility]) Name Value Range Interpretation Code Description Data Steffi rce(s) Supporting Document(s) White Blood Count 21.6 10 4.0-10.0 [facility] ([facility]) Red Blood Count 4.87 10 4.30-6.10 [facility] ([facility]) Hemoglobin 11.6 g/dL 13.5-17.5 [facility] ([facility]) Hematocrit 35.9 % 42.0-52.0 [facility] ([facility]) Mean Corpuscular Volume 73.7 fl 80.0-96.0 [facility] ([facility]) Mean Corpuscular Hemoglobin 23.8 pg 27.0-33.0 [facility] ([facility]) Red Cell Distribution Width 14.9 % 11.5-14.5 [facility] ([facility]) Mean Corpuscular HGB Conc 32.3 g/dL 32.0-36.5 [facility] ([facility]) Platelet Count, Automated 323 10 150-450 [facility] ([facility]) Nucleated Red Blood Cell % 0.0 % 0-0 [facility] ([facility]) ID Date Data Source [id number] 04/28/2021 01:40:00 PM EDT [facility] Name Value Range Interpretation Code Description Data Steffi rce(s) Supporting Document(s) SARS-CoV-2 (COVID 19) NEGATIVE - SARS-CoV-2 (COVID19) [facility] This lab was ordered by [facility] a nd reported by [facility]. ID Date Data Source [id number] 04/28/2021 01:24:00 PM EDT [facility] ([facility] Name Value Range Interpretation Code Description Data Steffi rce(s) Supporting Document(s) Natriuretic peptide.B prohormone N-Terminal [Mass/volu me] in Serum or Plasma 2940 pg/mL [facility] ([facility] ) Thyroxine (T4) Ab [Units/volume] in Serum 6.4 ug/dL 4.5-12.0 [facility] ([facility] Thyrotropin [Units/volume] in Serum or Plasma by Detec tion limit <= 0.05 mIU/L 1.020 uIU/ML 0.358-3.740 [facility] ([facility] ) ID Date Data Source [id number] 04/28/2021 01:24:00 PM EDT [facility] ([facility]) Name Value Range Interpretation Code Description Data Steffi rce(s) Supporting Document(s) Blood Urea Nitrogen 28 mg/dL 7-18 [facility] ([facility]) Glucose, Fasting 125 mg/dL 70-100 [facility] ([facility]) Glomerular Filtration Rate Laboratory test result [facility] ([facility]) <content>Units are mL/min/1.73 m2</content>
<content></content>
<content>Chronic Kidney Disease Staging per NKF:</content>
<content></content>
<content>Stage I & II GFR >=60 Normal to Mildly Decreased</content>
<content>Stage III GFR 30- 59 Moderately Decreased</content>
<content>Stage IV GFR 15-29 Severely Decreased</content>
<content>Stage V GFR <15 Very Little GFR Left</content>
<content>ESRD GFR <15 on BIOMEDICAL ANALYTICAL SCIENTIST</content>
<content></content> Creatinine For GFR 1.13 mg/dL 0.70-1.30 [facility] ([facility]) Sodium Level 130 meq/L 136-145 [facility] ([facility]) Chloride Level 99 meq/L 98-107 [facility] ([facility]) Potassium Serum 4.9 meq/L 3.5-5.1 [facility] ([facility]) Carbon Dioxide Level 22 meq/L 21-32 [facility] ([facility]) Calcium Level 8.3 mg/dL 8.8-10.2 [facility] ([facility]) Anion Gap 9 meq/L 8-16 [facility] ID Date Data Source [id number] 04/28/2021 01:24:00 PM EDT [facility] ([facility]) Name Value Range Interpretation Code Description Data Steffi rce(s) Supporting Document(s) Ast/Sgot 33 U/L 7-37 [facility] Bilirubin,Total 0.5 mg/dL 0.2-1.0 [facility] ([facility]) Alt/SGPT 56 U/L 12-78 [facility] Alkaline Phosphatase 78 U/L 45-117 [facility] ([facility]) Bilirubin,Direct 0.2 mg/dL 0.0-0.2 [facility] ([facility]) Total Protein 6.2 GM/DL 6.4-8.2 [facility] ([facility]) Albumin 2.2 GM/DL 3.2-5.2 [facility] Albumin/Globulin Ratio 0.6 [facility] ([facility]) ID Date Data Source [id number] 04/28/2021 01:24:00 PM EDT [facility] ([facility]) Name Value Range Interpretation Code Description Data Steffi rce(s) Supporting Document(s) CPK Creatine Phosphokinase 143 U/L 39-308 [facility] ([facility]) Troponin I 0.07 ng/mL [facility] ([facility]) <content>Troponin I Reference Interval f or Siemens [place] LOCI:</content>
<content></content>
<content>99th Percentile= 0.00-0.045 ng/ml</content>
<content></content>
<content>Risk Stratification:</content>
<content><= 0.10 ng/ml Decreased Risk for Adverse Clinical</content>
<content>Events.</content>
<content>0.10-1.50 ng/ml Increased Risk for Adverse Clinical</content>
<content>Events. Evaluation of additional</content>
<content>criterion and/or repeat testing in 2-6</content>
<content>hours is suggested to rule out myocardial</content>
<content>damage.</content>
<content>>= 1.50 ng/ml Indicative of Myocardial Injury.</content>
<content></content> MB/CK Relative Index 2.24 [facility] ([facility]) <content>DIAGNOSIS CRITERIA</content>
<content>MMB ng/ml Relative Index (RI)</content>
<content>NON-AMI < or = 5 N/A</content>
<content>MONTEMAYOR ZONE > 5 < or = 4</content>
<content>AMI > 5 > 4</content>
<content></content> CK-MB Value Mass 3.2 ng/mL [facility] ([facility]) ID Date Data Source [id number] 04/28/2021 01:24:00 PM EDT [facility] ([facility]) Name Value Range Interpretation Code Description Data Steffi rce(s) Supporting Document(s) Lactate [Mass/volume] in Serum or Plasma 1.6 mmol/L 0.4-2.[address] [facility] ([facility]) Y/N query for Sepsis Lactate Rule: Y ID Date Data Source [id number] 04/28/2021 01:24:00 PM EDT [facility] ([facility]) Name Value Range Interpretation Code Description Data Steffi rce(s) Supporting Document(s) Venous Partial Pressure Co2 33.9 mmHg 38.0-50.0 [facility] ([facility]) Venous PH 7.424 units 7.330-7.[address] [facility] ([facility]) Venous Hco3 21.7 meq/L 23.0-27.0 [facility] ([facility]) Venous Total Co2 22.7 meq/L 24.0-28.0 [facility] ([facility]) Venous Partial Pressure O2 65.4 mmHg 30.0-50.0 [facility] ([facility]) Venous Base Excess -2.0 [facility] ([facility]) Venous Standard Hco3 22.7 meq/L [facility] ( [facility]) Venous O2 Saturation 92.9 % 60.0-80.0 [facility] ([facility]) ID Date Data Source [id number] 04/05/2021 11:10:00 AM EDT [facility] ([facility]) Name Value Range Interpretation Code Description Data Steffi rce(s) Supporting Document(s) Coronavirus 2019 Nasopharygeal Laboratory test result [facility] ([facility]) NOTE: The COVID-19 assay is under [employer] n[employer] Use Authorization (EUA) by the U.S. Food and Drug Administration. [facility] is designated as a high complexity laboratory by the Clinical Laboratory Improvement Amendments of 1988(CLIA) and is qualified to perform this test. ASSAY INFORMATION: Real Time RT-PCR or TMA. Both RT-PCR and TMA are molecular testing modalities and are recommended by the CDC for passenger travel. Not Detected ID Date Data Source [id number] 04/05/2021 11:10:00 AM EDT [facility] Name Value Range Interpretation Code Description Data Steffi rce(s) Supporting Document(s) SARS-CoV-2 (COVID-19) RNA [Presence] in Respiratory specimen by MICHELLE with probe detection Not Detected [facility] This lab was ordered by [facility] and reported by [email or web address]. ID Date Data Source [id number] 03/13/2021 03:25:00 PM EDT [facility] ([facility], ) Name Value Range Interpretation Code Description Data Steffi rce(s) Supporting Document(s) Glucose, Fasting 96 mg/dL 70-100 Normal (applies to non-numeric results) [facility] ([facility], ) Blood Urea Nitrogen 26 mg/dL 7-18 Above high normal [facility] ([facility], ) Creatinine For GFR 0.62 mg/dL 0.70-1.30 Below low normal [facility] ([facility], ) Glomerular Filtration Rate Laboratory test result Normal (applies to non- numeric results) [facility], ) <content>Units are mL/min/1.73 m2</content>
<content></content>
<content>Chronic Kidney Disease Staging per NKF:</content>
<content></content>
<content>Stage I & II GFR >=60 Normal to Mildly Decreased</content>
<content>Stage III GFR 30- 59 Moderately Decreased</content>
<content>Stage IV GFR 15-29 Severely Decreased</content>
<content>Stage V GFR <15 Very Little GFR Left</content>
<content>ESRD GFR <15 on BIOMEDICAL ANALYTICAL SCIENTIST</content>
<content></content> Sodium Level 141 meq/L 136-145 Normal (applies to non-numeric res ults) [facility] ([facility], ) Potassium Serum 4.7 meq/L 3.5-5.1 Normal (applies to non-numeric results) [facility] ([facility]) Chloride Level 108 meq/L 98-107 Above high normal [facility] ([facility]) Anion Gap 4 meq/L 8-16 Below low normal [facility] ( [facility]) Carbon Dioxide Level 29 meq/L 21-32 Normal (applies to non-num tavo results) [facility] ([facility]) Calcium Level 9.2 mg/dL 8.8-10.2 Normal (applies to non-numeric re sults) [facility] ([facility]) Alt/SGPT 37 U/L 12-78 Normal (applies to non-numeric resul ts) [facility] ([facility]) Ast/Sgot 28 U/L 7-37 Normal (applies to non-numeric resul ts) [facility]) Alkaline Phosphatase 80 U/L 45-117 Normal (applies to non-num tavo results) [facility]) Bilirubin,Total 0.4 mg/dL 0.2-1.0 Normal (applies to non-numeric results) [facility] ([facility], ) Albumin 3.5 GM/DL 3.2-5.2 Normal (applies to non-numeric resul ts) [facility] ([facility]) Albumin/Globulin Ratio 1.1 Normal (applies to non-n umeric results) [facility]) 03/15/21 (March 15) 09:17 AM KIEL SHERWOOD No significant abnormalities. Total Protein 6.7 GM/DL 6.4-8.2 Normal (applies to non-numeric re sults) [facility]) ID Date Data Source [id number] 03/13/2021 03:25:00 PM EDT [facility] ([facility]) Name Value Range Interpretation Code Description Data Steffi rce(s) Supporting Document(s) Iron (Fe) 54 ug/dL 65-175 Below low normal [facility] ( [facility]) Total Iron Binding Capacity 285 ug/dL 250-450 Norm al (applies to non-numeric results) [facility] ([facility]) Percent Saturation 18.9 % 19.7-50.0 Below low normal [facility] 03/15/21 (March 15) 09:17 AM KIEL C HARLEBOIS Improvement noted. ID Date Data Source [id number] 03/13/2021 03:25:00 PM EDT [facility] ([facility]) Name Value Range Interpretation Code Description Data Steffi rce(s) Supporting Document(s) Hemoglobin 12.6 g/dL 13.5-17.5 Below low normal [facility] ( [facility]) White Blood Count 13.3 10 4.0-10.0 Above high normal [facility] ([facility]) Red Blood Count 5.47 10 4.30-6.10 Normal (applies to non-numeric results) [facility] ([facility]) Hematocrit 42.3 % 42.0-52.0 Normal (applies to non-numeric resul ts) [facility] ([facility]) Mean Corpuscular Volume 77.3 fl 80.0-96.0 Below low normal [facility] Mean Corpuscular Hemoglobin 23.0 pg 27.0-33.0 Below low normal [facility] ([facility]) Mean Corpuscular HGB Conc 29.8 g/dL 32.0-36.5 Below low normal [facility] ([facility]) Red Cell Distribution Width 19.2 % 11.5-14.5 Above high normal [facility] ([facility]) Nucleated Red Blood Cell % 0.0 % 0-0 Normal (applies to n on-numeric results) [facility] ([facility]) 03/15/21 (March 15) 09:17 AM KIEL C HARLEBOIS Anemia has improved. WBC elevated. Informed patient and letter sent to PCP. Platelet Count, Automated 249 10 150-450 Normal (applies to non-numeric results) [facility] ([facility], ) ID Date Data Source [id number] 01/12/2021 01:01:00 PM EST [facility] ([facility]) Name Value Range Interpretation Code Description Data Steffi rce(s) Supporting Document(s) Iron (Fe) 92 ug/dL 65-175 [facility] ([facility]) Total Iron Binding Capacity 318 ug/dL 250-450 [facility] ([facility]) Percent Saturation 28.9 % 19.7-50.0 [facility] ([facility]) ID Date Data Source [id number] 01/12/2021 01:01:00 PM EST [facility] ([facility]) Name Value Range Interpretation Code Description Data Steffi rce(s) Supporting Document(s) Leukocytes [#/volume] in Blood by Automated count 11.9 x10*3/UL 4.1-1 0.9 [facility] ([facility]) NOTE: cbc verified Erythrocytes [#/volume] in Blood by Automated count 5.32 x10*6/UL 4.2 0-6.[address] [facility] ([facility]) Hematocrit [Volume Fraction] of Blood by Automated count 38.2 % 3 7.0-51.0 [facility] Hemoglobin [Mass/volume] in Blood 12.4 g/dL 12.0-18.0 [facility] ([facility]) MCV 71.7 fL 80.0-97.0 [facility] MCH 23.4 pg 26.0-32.0 [facility] ([facility]) Platelets [#/volume] in Blood by Automated count 197 x10*3/UL 140-440 [facility] ([facility]) MCHC 32.6 g/dL 31.0-38.0 [facility] ([facility]) Erythrocyte distribution width [Ratio] by Automated count 16.5 % 11.6-13.7 [facility] ([facility]) Lymph % 4.4 % 10.0-58.5 [facility] MPV 7.8 FL 7.8-11.0 [facility] Neut % 89.9 % 37.0-92.0 [facility] Mid % 5.7 % 1.7-9.3 [facility] ([facility]) Mid # 0.7 x10*3/UL 0.1-0.6 [facility] ([facility]) Lymph # 0.5 x10*3/UL 0.6-4.1 [facility] ([facility]) Neut # 10.7 x10*3/UL 2.0-7.8 [facility] ([facility]) ID Date Data Source [id number] 12/28/2020 11:26:00 AM EST [facility] ([facility]) Name Value Range Interpretation Code Description Data Steffi rce(s) Supporting Document(s) Hemoglobin.gastrointestinal [Presence] in Stool by Imm unologic method Laboratory test result Abnormal (applies to non-numeric results) [facility] ([facility]) ID Date Data Source [id number] 12/25/2020 01:30:00 PM EST [facility] ([facility]) Name Value Range Interpretation Code Description Data Steffi rce(s) Supporting Document(s) Total Iron Binding Capacity 350 ug/dL 250-450 [facility] ([facility]) Iron (Fe) 40 ug/dL 65-175 [facility] ([facility]) Percent Saturation 11.4 % 19.7-50.0 [facility] ([facility]) ID Date Data Source [id number] 12/25/2020 01:29:00 PM EST [facility] ([facility]) Name Value Range Interpretation Code Description Data Steffi rce(s) Supporting Document(s) Leukocytes [#/volume] in Blood by Automated count 10.8 x10*3/UL 4.1-[address] [facility] ([facility]) Hematocrit [Volume Fraction] of Blood by Automated count 35.1 % 3 7.0-51.0 [facility] Erythrocytes [#/volume] in Blood by Automated count 4.97 x10*6/UL 4.2 0-6.30 [facility] ([facility]) Hemoglobin [Mass/volume] in Blood 11.7 g/dL 12.0-18.0 [facility] NOTE: RESULT VERIFIED. MCH 23.5 pg 26.0-32.0 [facility] ([facility]) MCV 70.7 fL 80.0-97.0 [facility] ([facility]) MCHC 33.3 g/dL 31.0-38.0 [facility] ([facility]) Platelets [#/volume] in Blood by Automated count 219 x10*3/UL 140-440 [facility] ([facility]) MPV 8.0 FL 7.8-11.0 [facility] ([facility]) Erythrocyte distribution width [Ratio] by Automated count 14.8 % 11.6-13.7 [facility] ([facility]) Lymph % 3.6 % 10.0-58.5 [facility] ([facility]) Mid % 4.9 % 1.7-9.3 [facility] ([facility]) Neut % 91.5 % 37.0-92.0 [facility] ([facility]) Lymph # 0.3 x10*3/UL 0.6-4.1 [facility] Mid # 0.6 x10*3/UL 0.1-0.6 [facility] ([facility]) Neut # 9.9 x10*3/UL 2.0-7.8 [facility] ([facility]) ID Date Data Source [id number] 11/20/2020 08:42:00 AM EST [facility] ([facility]) Name Value Range Interpretation Code Description Data Steffi rce(s) Supporting Document(s) Prostate specific Ag [Mass/volume] in Serum or Plasma Laboratory test result [facility] ([facility]) This assay was performed on the [employer] Dimension EXL using the B- Galactosidase/CPRG methodology and should not be compared interchangeably with other methods. The PSA should not be used alone as a screening test for the presence or absence of malignant disease. ID Date Data Source [id number] 11/20/2020 08:41:00 AM EST [facility] ([facility]) Name Value Range Interpretation Code Description Data Steffi rce(s) Supporting Document(s) Cholesterol [Mass/volume] in Serum or Plasma 175 mg/dL 131-200 [facility] ([facility]) Cholesterol in HDL [Mass/volume] in Serum or Plasma 103 mg/dL 35-60 [facility] ([facility]) Triglyceride [Mass/volume] in Serum or Plasma 98 mg/dL 30-150 [facility] ([facility]) Cholesterol in LDL [Mass/volume] in Serum or Plasma by calcu lation 52 CALC 50-159 [facility] ([facility]) ID Date Data Source [id number] 11/20/2020 08:41:00 AM EST [facility] ([facility]) Name Value Range Interpretation Code Description Data Steffi rce(s) Supporting Document(s) Glucose [Mass/volume] in Serum or Plasma 80 mg/dL 74-99 [facility] ([facility]) 100-125 mg/dL PRE-DIABETES/FASTING >126 mg/dL DIABETES/FASTING Urea nitrogen [Mass/volume] in Serum or Plasma 20 mg/dL 7-18 [facility] ([facility]) Creatinine 0.7 mg/dL 0.6-1.3 [facility] Potassium [Moles/volume] in Serum or Plasma 3.9 meq/L 3.5-5.1 [facility] ([facility]) Sodium [Moles/volume] in Serum or Plasma 143 meq/L 136-145 [facility] ([facility]) Carbon dioxide, total [Moles/volume] in Serum or Plasma 29 meq/L 21 -32 [facility] ([facility]) Chloride [Moles/volume] in Serum or Plasma 106 meq/L 98-107 [facility] ([facility]) Calcium [Mass/volume] in Serum or Plasma 8.4 mg/dL 8.5-10.1 [facility] ([facility]) NOTE: CALCIUM,ALB,T.PROTEIN VERIFIED Alkaline phosphatase isoenzyme [Units/volume] in Serum or Pl asma 73 mg/dL 46-116 [facility] ([facility]) Total Bilirubin 0.4 mg/dL 0.2-1.0 [facility] ([facility]) Aspartate aminotransferase [Enzymatic activity/volume] in Serum or Plasma 27 U/L 15-37 [facility] ([facility] ) Alanine aminotransferase [Enzymatic activity/volume] in Seru m or Plasma 38 U/L 12-78 [facility] ([facility]) Proteinase 3 Ab [Units/volume] in Serum 6.3 g/dL 6.4-8.2 [facility] ([facility]) Albumin [Mass/volume] in Serum or Plasma 3.4 g/dL 3.4-5.0 [facility] A/G Ratio 1.17 CALC 1.00-1.[address] [facility] Glomerular filtration rate/1.73 sq M pre dicted among non-blacks [Volume Rate/Area] in Serum or Plasma by Creatinine-based formula (MDRD) Laboratory test result [facility] ([facility] Glomerular filtration rate/1.73 sq M pre dicted among blacks [Volume Rate/Area] in Serum or Plasma by Creatinine-based formula (MDRD) Laboratory test result [facility] ([facility]) <content>CHRONIC KIDNEY DISEASE STAGING PER NKF</content>
<content></content>
<content>STAGE I & II GFR >= 60 NORMAL TO MILDLY DECREASED</content>
<content>STAGE III GFR 30-59 MODERATELY DECREASED</content>
<content>STAGE IV GFR 15-29 SEVERELY DECREASED</content>
<content>STAGE V GFR <15 VERY LITTLE GFR LEFT</content>
<content>ESRD GFR <15 ON BIOMEDICAL ANALYTICAL SCIENTIST</content>
<content></content> ID Date Data Source [id number] 11/20/2020 08:41:00 AM EST [facility] ([facility]) Name Value Range Interpretation Code Description Data Steffi rce(s) Supporting Document(s) Leukocytes [#/volume] in Blood by Automated count 8.0 x10*3/UL 4.1-10 .9 [facility] ([facility]) NOTE: CBC VERIFIED Erythrocytes [#/volume] in Blood by Automated count 4.88 x10*6/UL 4.2 0-6.30 [facility] ([facility]) Hematocrit [Volume Fraction] of Blood by Automated count 35.0 % 3 7.0-51.0 [facility] ([facility]) Hemoglobin [Mass/volume] in Blood 11.7 g/dL 12.0-18.0 [facility] ([facility]) MCV 71.7 fL 80.0-97.0 [facility] MCHC 33.6 g/dL 31.0-38.0 [facility] MCH 24.1 pg 26.0-32.0 [facility] Platelets [#/volume] in Blood by Automated count 178 x10*3/UL 140-440 [facility] ([facility]) Erythrocyte distribution width [Ratio] by Automated count 14.0 % 11.6-13.7 [facility] ([facility]) MPV 7.6 FL 7.8-11.0 [facility] Lymph % 13.9 % 10.0-58.5 [facility] Neut % 81.6 % 37.0-92.0 [facility] Mid % 4.5 % 1.7-9.3 [facility] Lymph # 1.1 x10*3/UL 0.6-4.1 [facility] ([facility]) Mid # 0.3 x10*3/UL 0.1-0.6 [facility] ([facility]) Neut # 6.6 x10*3/UL 2.0-7.8 [facility] ([facility]) ID Date Data Source [id number] 11/13/2020 03:58:36 PM [facility] Name Value Range Interpretation Code Description Data Steffi rce(s) Supporting Document(s) Progress Note [facility] JGGYZr7hMpNOCzVt88/NKBpsDZJmm0GpSTiiHUu6LFcsXLHhE4YpAYU0bS6cHXP7CHqVDwMwGhAoZQU2 lbm [file] H5TPUcEhXjBZY0TCZzQwIeJRRuBEO+CL7dXPp+Wj3To5LrjkA9trFlEItrPKrxSv8LMZQNR0UJPa== ID Date Data Source [id number] 10/31/2020 12:00:00 AM EST [facility] Name Value Range Interpretation Code Description Data Steffi rce(s) Supporting Document(s) SARS coronavirus 2 RNA [facility] This lab was ordered by [employer] and rep orted by [employer]. ID Date Data Source [id number] 10/16/2020 02:54:47 PM EST [facility] Name Value Range Interpretation Code Description Data Steffi rce(s) Supporting Document(s) Progress Note [facility] AKLQAb7oAeCLQmIg31/ITSqkVGCfn0IoBBlnJLm0FWyeRFYmD7SvCDD3lC0fWEX5ZZfRZeEbXxCvChT1 lbm YkJuyFJvObFIQqPtmRIcQuLGazRvqkfVThDP5LwXU4BERwT37oYRIcRBCxO0DkMIEsVfd+Dt6LAXWrtB KjKK2UXdrP1V79wef0Sl+/OW4OfqDPlltVOy07SWWRhYeF6ZTmM8aXke/R8doSfjPMiTDorM/aKjG9te VMNr+Wo9WtBL5Z5QFR5+LdYfwbLqMIi97Og5FsDNem f1e/BpESlxPxxz+NdzrrMb6cR3hiCpO3wLKAR3KiUdjuxMeiRtmCXvFr8szgo7mRbw/GTcX50cm10EFh FUjDWY1gwlnKFwNVOmctyBWURUeMaO8sPpZHDyCNlUT6m8yGGMy2KbC+FO9+0qi5aB5oKyoLD6arfPak m1o58tTnaQiGr6AymnSeSPGPM190f5cSL0/Ze33IWX 4th0WHCh+pT7JTgTZ+i0GbgTXJGTKARsceopFzQIw6MUGNEzfFWgqJ2faduiTNucsNyFzEm4V0yyq/w6 5lApe8alDzGYRd1KptPjiu4eUKX7ZAtU+GqLjnvIC2ulonl4lI+VPqv3PGCNtYYHvQSxtI74YyvS4Tpy 46g69FcMFhd1NTlhoMOHC1IpnXbKxqVNYutiC+Gn+2 p+gKdaXow+AkwXa8owdvF7OPeTQj2/RRwYSPieW91d7UjBV67idaYNK3CPpieJmM6njlUP7y9XzM+kpV vxKanXnMR0C/F0+YBcjpVsnB8E/NERWCrybKEBcnSPFzvSahTyzhDEuFx7MBcprAl/yEknxG1tVAXvfg SG9Kd8RSLudeopeAmyhlTrgpXi4Hjoh8pbcqvhpckZ [file] Jose Alfredo+mct7bOAVEsKd2iCAAI/crB8VyL4g+sx4XUBNpyxyeaLHBWV6cf5W580R1lz+a+WywVR8kc7er7/E [file] NWKvEpMwZKBeKCMxEBZvJVZyFL2lHHWXJp7+SLzbvYUluFkbNKLKDsW5QlH7YEmrXUGKCe4L ID Date Data Source [id number] 09/01/2020 02:00:00 PM EDT [facility] ([facility], ) Name Value Range Interpretation Code Description Data Steffi rce(s) Supporting Document(s) Gram Stain Laboratory test result Normal (applies to non-n umeric results) [facility] ([facility]) QUALITY: GOOD MODERATE WBCS FEW EPITHELIAL CELLS MODERATE GRAM POSITIVE COCCI IN PAIRS, CHAINS AND CLUSTERS FEW GRAM NEGATIVE RODS FEW GRAM POSITIVE RODS Sputum Culture Laboratory test result Normal (applies to non-numeric results) [facility] ([facility]) <content>FULL REPORT IN LAB NOTES ([facility] a nd [facility]).</content>
<content>NORMAL [facility] PRESENT</content>
<content></content>
<content>ORGANISM 1: PSEUDOMONAS AERUGINOSA</content>
<content></content>
<content>QUANTITY OF GROWTH MODERATE</content>
<content></content>
<content></content>
<content> </content>
<content>ORGANISM 1: PSEUDOMONAS AERUGINOSA</content>
<content></content>
<content>PSEUDOMONAS AERUGINOSA: REACTION</content>
<content> GENTAMICIN IV 80mg q8h <=1 S</content>
<content>LEVOFLOXACIN IV 500mg qd 4 I</content>
<content>LEVOFLOXACIN PO 250mg qd 4 I</content>
<content>LEVOFLOXACIN PO 500mg qd 4 I</content>
<content>TOBRAMYCIN IV 80mg q8h <=1 S</content>
<content>CEFTAZIDIME IV 1gm q8h 4 S</content>
<content> PIPERACILLIN/TAZOBACTAM IV 2.25 gm q6h 8 S</content>
<content>MEROPENEM IV 1 gm q8h 1 S</content>
<content>MEROPENEM IV 500 mg q8h 1 S</content>
<content>CEFEPIME IV 1 gm q12h 16 I</content>
<content>CEFEPIME IV 2 gm q12h 16 I</content>
<content></content> Procedure Social History Code Duration Value Status Description Data Source(s ) Smoking 08/29/2021 12:00:00 AM EDT - 11/10/1992 12:00:00 AM EST Patient is a former smoker completed Patient is a former smoker [facility] ([facility], ) Alcohol intake 10/16/2020 12:00:00 AM EST Current drinker of al cohol (finding) completed Current drinker of alcohol (finding) [facility] Vital Signs ID Date Data Source UNK Name Value Range Interpretation Code Description Data Source(s) Systolic blood pressure 100 mm[Hg] 100 mm[Hg] [facility] Diastolic blood pressure 58 mm[Hg] 58 mm[Hg] [facility] ([facility], ) Heart rate 98 /min 98 /min [facility] ([facility], ) Oxygen saturation in Arterial blood by Pulse oximetry 882 % 882 % [facility] ([facility], ) Respiratory rate 20 /min 20 /min [facility] ( [facility], ) Body height 72 [in_i] 72 [in_i] [facility] ([facility], ) 6'0" Body weight 131.50 [lb_av] 131.50 [lb_av] [facility] ([facility]) Body mass index (BMI) [Ratio] 17.8 kg/m2 17.8 k g/m2 [facility] ([facility]) [place] body weight 178 [lb_av] 178 [lb_av] [facility] Body weight 59.648 kg 59.648 kg [facility] ([facility]) Body surface area Derived from formula 1.78 m2 1.78 m2 [facility] ([facility]) Heart rate 91 /min 91 /min [facility] ([facility]) Oxygen saturation in Arterial blood by Pulse oximetry 892 % 892 % [facility] ([facility]) Body height 72 [in_i] 72 [in_i] [facility] ([facility]) 6'0" [place] body weight 178 [lb_av] 178 [lb_av] [facility] Systolic blood pressure 108 mm[Hg] 108 mm[Hg] [facility] ([facility]) Diastolic blood pressure 64 mm[Hg] 64 mm[Hg] [facility] ([facility]) Body weight 134.00 [lb_av] 134.00 [lb_av] [facility] ([facility]) Systolic blood pressure 130 mm[Hg] 130 mm[Hg] [facility] ([facility]) Diastolic blood pressure 76 mm[Hg] 76 mm[Hg] [facility] ([facility]) Heart rate 84 /min 84 /min [facility] ([facility]) Body height 71 [in_i] 71 [in_i] [facility] ([facility]) 5'11" Oxygen saturation in Arterial blood by Pulse oximetry 94 % 94 % [facility] ([facility]) 2 liters Body mass index (BMI) [Ratio] 18.7 kg/m2 18.7 k g/m2 [facility] ([facility]) Body mass index (BMI) [Ratio] 17.2 kg/m2 17.2 k g/m2 [facility] ([facility]) [place] body weight 178 [lb_av] 178 [lb_av] [facility] ([facility]) Body weight 57.607 kg 57.607 kg [facility] ([facility]) Systolic blood pressure 86 mm[Hg] 86 mm[Hg] [facility] ([facility]) Diastolic blood pressure 58 mm[Hg] 58 mm[Hg] [facility] ([facility]) Heart rate 74 /min 74 /min [facility] ([facility]) Oxygen saturation in Arterial blood by Pulse oximetry 942 % 942 % [facility] ([facility]) Body height 72 [in_i] 72 [in_i] [facility] ([facility]) 6'0" Body weight 127.00 [lb_av] 127.00 [lb_av] [facility] Body surface area Derived from formula 1.76 m2 1.76 m2 [facility] ([facility]) Systolic blood pressure 86 mm[Hg] 86 mm[Hg] [facility] ([facility]) Diastolic blood pressure 58 mm[Hg] 58 mm[Hg] [facility] ([facility]) Heart rate 96 /min 96 /min [facility] ([facility]) Body height 71 [in_i] 71 [in_i] [facility] ([facility]) 5'11" Body weight 135.00 [lb_av] 135.00 [lb_av] [facility] Oxygen saturation in Arterial blood by Pulse oximetry 89 % 89 % [facility] ([facility]) 2 liters Body mass index (BMI) [Ratio] 18.8 kg/m2 18.8 k g/m2 [facility] ([facility]) Oxygen saturation in Arterial blood by Pulse oximetry 88 % 88 % [facility] ([facility], [facility]) Systolic blood pressure 103 mm[Hg] 103 mm[Hg] [facility] ([facility], [facility]) Diastolic blood pressure 56 mm[Hg] 56 mm[Hg] [facility] ([facility], [facility]) Heart rate 107 /min 107 /min [facility] ([facility], [facility]) Respiratory rate 20 /min 20 /min [facility] ( [facility], [facility]) Oxygen saturation in Arterial blood by Pulse oximetry 79 % 79 % [facility] ([facility], [facility]) Body temperature 97.0 [degF] 97.0 [degF] [facility] ([facility], [facility]) Systolic blood pressure 100 mm[Hg] 100 mm[Hg] [facility] ([facility]) Diastolic blood pressure 58 mm[Hg] 58 mm[Hg] [facility] ([facility]) Heart rate 82 /min 82 /min [facility] ([facility]) Body height 71 [in_i] 71 [in_i] [facility] ([facility]) 5'11" Body weight 143.00 [lb_av] 143.00 [lb_av] [facility] ([facility]) Oxygen saturation in Arterial blood by Pulse oximetry 94 % 94 % [facility] ([facility]) 2 liters Body mass index (BMI) [Ratio] 19.9 kg/m2 19.9 k g/m2 [facility] ([facility]) Oxygen saturation in Arterial blood by Pulse oximetry 932 % 932 % [facility] ([facility], ) Body height 72 [in_i] 72 [in_i] [facility] ([facility]) 6'0" [place] body weight 178 [lb_av] 178 [lb_av] [facility] ([facility], ) Systolic blood pressure 100 mm[Hg] 100 mm[Hg] [facility] ([facility], ) Diastolic blood pressure 60 mm[Hg] 60 mm[Hg] [facility] ([facility]) Heart rate 86 /min 86 /min [facility] ([facility], ) Oxygen saturation in Arterial blood by Pulse oximetry 932 % 932 % [facility] ([facility], ) Body height 72 [in_i] 72 [in_i] [facility] ([facility]) 6'0" [place] body weight 178 [lb_av] 178 [lb_av] [facility] ([facility], ) Systolic blood pressure 100 mm[Hg] 100 mm[Hg] M [facility] ([facility]) Diastolic blood pressure 56 mm[Hg] 56 mm[Hg] [facility] ([facility]) Heart rate 84 /min 84 /min [facility] ([facility]) Body height 71 [in_i] 71 [in_i] [facility] ([facility]) 5'11" Body weight 148.00 [lb_av] 148.00 [lb_av] [facility] ([facility]) Body mass index (BMI) [Ratio] 20.6 kg/m2 20.6 k g/m2 [facility] ([facility]) Systolic blood pressure 110 mm[Hg] 110 mm[Hg] [facility] ([facility], ) Diastolic blood pressure 60 mm[Hg] 60 mm[Hg] [facility] ([facility]) Body height 72 [in_i] 72 [in_i] [facility] ([facility]) 6'0" [place] body weight 178 [lb_av] 178 [lb_av] [facility] ([facility]) Body weight 80.741 kg 80.741 kg [facility] ([facility]) Body weight 178.00 [lb_av] 178.00 [lb_av] [facility] ([facility]) Body surface area Derived from formula 2.03 m2 2.03 m2 [facility] ([facility]) Body mass index (BMI) [Ratio] 24.1 kg/m2 24.1 k g/m2 [facility] ([facility]) Body weight 178.00 [lb_av] 178.00 [lb_av] [facility] ([facility]) Body mass index (BMI) [Ratio] 24.1 kg/m2 24.1 k g/m2 [facility] ([facility]) Body height 72 [in_i] 72 [in_i] [facility] ([facility]) 6'0" [place] body weight 178 [lb_av] 178 [lb_av] [facility] ([facility]) Body weight 80.741 kg 80.741 kg [facility] ([facility]) Body surface area Derived from formula 2.03 m2 2.03 m2 [facility] ([facility]) Heart rate 94 /min 94 /min [facility] ([facility]) Oxygen saturation in Arterial blood by Pulse oximetry 872 % 872 % [facility] ([facility]) 92 2L Body height 72 [in_i] 72 [in_i] [facility] ([facility]) 6'0" Body weight 181.00 [lb_av] 181.00 [lb_av] [facility] ([facility]) Diastolic blood pressure 80 mm[Hg] 80 mm[Hg] [facility] ([facility]) Body mass index (BMI) [Ratio] 24.5 kg/m2 24.5 k g/m2 [facility] ([facility]) Systolic blood pressure 130 mm[Hg] 130 mm[Hg] [facility] ([facility]) [place] body weight 178 [lb_av] 178 [lb_av] [facility] ([facility]) Body weight 82.102 kg 82.102 kg [facility] ([facility]) Body surface area Derived from formula 2.04 m2 2.04 m2 [facility] ([facility]) Heart rate 72 /min 72 /min [facility] ([facility]) Systolic blood pressure 106 mm[Hg] 106 mm[Hg] [facility] ([facility]) Diastolic blood pressure 60 mm[Hg] 60 mm[Hg] [facility] ([facility]) Oxygen saturation in Arterial blood by Pulse oximetry 92 % 92 % [facility] ([facility]) With O2 Body mass index (BMI) [Ratio] 25.9 kg/m2 25.9 k g/m2 [facility] ([facility]) Body height 71 [in_i] 71 [in_i] [facility] ([facility]) 5'11" Body weight 185.38 [lb_av] 185.38 [lb_av] [facility] ([facility]) Body height 72 [in_i] 72 [in_i] [facility] ([facility]) 6'0" [place] body weight 178 [lb_av] 178 [lb_av] [facility] ([facility]) Systolic blood pressure 120 mm[Hg] 120 mm[Hg] [facility] ([facility]) Diastolic blood pressure 76 mm[Hg] 76 mm[Hg] [facility] ([facility]) Heart rate 75 /min 75 /min [facility] ([facility]) Oxygen saturation in Arterial blood by Pulse oximetry 84 % 84 % [facility] ([facility]) 93 2L Heart rate 84 /min 84 /min [facility] ([facility]) Body height 72 [in_i] 72 [in_i] [facility] ([facility]) 6'0" Body weight 183.00 [lb_av] 183.00 [lb_av] [facility] Body mass index (BMI) [Ratio] 24.8 kg/m2 24.8 k g/m2 [facility] ([facility]) [place] body weight 178 [lb_av] 178 [lb_av] [facility] ([facility]) Systolic blood pressure 130 mm[Hg] 130 mm[Hg] [facility] ([facility]) Diastolic blood pressure 70 mm[Hg] 70 mm[Hg] [facility] ([facility]) Oxygen saturation in Arterial blood by Pulse oximetry 94 % 94 % [facility] ([facility]) Room Air Body weight 83.009 kg 83.009 kg [facility] ([facility]) Body surface area Derived from formula 2.05 m2 2.05 m2 [facility] ([facility]) Heart rate 84 /min 84 /min [facility] ([facility]) Oxygen saturation in Arterial blood by Pulse oximetry 95 % 95 % [facility] ([facility]) RM Air Body mass index (BMI) [Ratio] 25.7 kg/m2 25.7 k g/m2 [facility] ([facility]) Diastolic blood pressure 70 mm[Hg] 70 mm[Hg] [facility] ([facility]) Body height 71 [in_i] 71 [in_i] [facility] ([facility]) 5'11" Body weight 184.00 [lb_av] 184.00 [lb_av] KAYCEE Whitmore ([facility]) Systolic blood pressure 130 mm[Hg] 130 mm[Hg] Michele WEBB ([facility]) ID Date Data Source [id number] 10/19/2020 03:30:21 PM [facility] Name Value Range Interpretation Code Description Data Source(s) WEIGHT RECORDED 183 lb 183 lb [facility] ID Date Data Source [id number] 11/13/2020 03:58:36 PM [facility] Name Value Range Interpretation Code Description Data Source(s) WEIGHT RECORDED 171 lb 171 lb [facility] Body height Measured 72.[address] [facility] Patient Treatment Plan of Care Planned Activity Planned Date Details Description Data Source (s) Sulfamethoxazole 800 MG / Trimethoprim 160 MG Oral Tab let 10/16/2020 01:30:00 PM [facility] ospital lidocaine (XYLOCAINE) 2 % urojet 20 mL 10/16/2020 01:30:00 PM [facility] 120 ACTUAT Albuterol 0.1 MG/ACTUAT / Ipr atropium [place] 0.02 MG/ACTUAT Metered Dose Inhaler [Combivent] 10/12/2020 12:00:00 AM [facility] 24 HR mirabegron 50 MG Extended Release Oral Tablet [M yrbetriq] 09/03/2020 12:00:00 AM [facility] ospital 7 ACTUAT umeclidinium 0.0625 MG/ACTUAT Dry Powder Inha ler [Incruse] 09/02/2020 12:00:00 AM [facility] ospital Carboxymethylcellulose Sodium 5 MG/ML Ophthalmic Solut ion 08/19/2020 12:00:00 AM [facility] ospital Nystatin [id number] UNT/ML Oral Suspension 07/24/2020 12:00:00 AM [facility] solifenacin succinate 10 MG Oral Tablet 07/22/2020 12:00:00 AM [facility] Hydrochlorothiazide 12.5 MG Oral Capsule 06/23/2020 12:00:00 AM [facility] solifenacin succinate 10 MG Oral Tablet 11/16/2019 12:00:00 AM EST [facility] Polyvinyl Alcohol 0.014 ML/ML Ophthalmic Solution [facility] MAGNESIUM PO [facility] Potassium 99 MG TABS [facility] Probiotic Product ([employer] PROBIOTIC) CHEW [facility] Ouray-3 Fatty Acids (FISH OIL) 1200 MG [facility]
[2021-09-10] MEDS ORDERED: ATIV1TAB10 PO (12:20)
[2021-09-10] MEDS ORDERED: IRON27TA2 PO (12:20)
[2021-09-10] MEDS ORDERED: MAGN400C PO (12:20)
[2021-09-10] MEDS ORDERED: MELA10TA6 PO (12:20)
[2021-09-10] MEDS ORDERED: MECL-86 PO (12:20)
[2021-09-10] MEDS ORDERED: NOXI1TAB PO (12:20)
[2021-09-10] MEDS ORDERED: OXYC1TAB23 PO (12:20)
--- OUTSIDE RECORDS SUMMARY | 2021-09-10 12:49 | CCD ---
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 Name Role Phone Sharda Napier MD Unavailable [...] Unavailable SEARS, A HEENA DO Unavailable Unavailable Flat LickNando yin MD Unavailable Unavailable Flat LickNando yin MD Unavailable Unavailable Flat LickNando yin MD Unavailable Unavailable Flat LickNando yin MD Unavailable Unavailable Flat LickNando MD Unavailable Unavailable AugustaNando yin MD Unavailable Unavailable Augusta, F Heller MD Unavailable Unavailable Flat LickNando MD Unavailable Unavailable Flat LickNando MD Unavailable Unavailable Flat LickNando MD Unavailable Unavailable Flat LickNando MD Unavailable Unavailable Flat LickNando MD Unavailable Unavailable AugustaNando MD Unavailable Unavailable AugustaNando MD Unavailable Unavailable AugustaNando MD Unavailable Unavailable AugustaNando MD Unavailable Unavailable Flat LickNando MD Unavailable Unavailable AugustaNando MD Unavailable Unavailable Flat LickNando MD Unavailable Unavailable AugustaNando MD Unavailable Unavailable Flat LickNando MD Unavailable Unavailable Flat LickNando MD Unavailable Unavailable AugustaNando MD Unavailable Unavailable Flat LickNando MD Unavailable Unavailable Flat LickNando MD Unavailable Unavailable Flat LickNando MD Unavailable Unavailable AugustaNando MD Unavailable Unavailable Flat LickNando MD Unavailable Unavailable AugustaNando MD Unavailable Unavailable Flat LickNando MD Unavailable Unavailable Flat LickNando MD Unavailable Unavailable Flat LickNando MD Unavailable Unavailable AugustaNando MD Unavailable Unavailable AugustaNando MD Unavailable Unavailable Flat LickNando MD Unavailable Unavailable AugustaNando MD Unavailable Unavailable Flat LickNando MD Unavailable Unavailable Flat LickNando MD Unavailable Unavailable AugustaNando MD Unavailable Unavailable Flat LickNando MD Unavailable Unavailable AugustaNando MD Unavailable Unavailable AugustaNando yin MD Unavailable Unavailable AugustaNando MD Unavailable Unavailable Flat LickNando MD Unavailable Unavailable Flat LickNando yin MD Unavailable Unavailable AugustaNando MD Unavailable Unavailable Flat LickNando MD Unavailable Unavailable AugustaNando yin MD Unavailable Unavailable AugustaNando yin MD Unavailable Unavailable AugustaNando MD Unavailable Unavailable Flat LickNando MD Unavailable Unavailable Flat LickNando MD Unavailable Unavailable Flat LickNando MD Unavailable Unavailable AugustaNando MD Unavailable Unavailable AugustaNando MD Unavailable Unavailable AugustaNando MD Unavailable Unavailable Flat LickNando MD Unavailable Unavailable AugustaNando MD Unavailable Unavailable AugustaNando MD Unavailable Unavailable AugustaNando MD Unavailable Unavailable AugustaNando MD Unavailable Unavailable AugustaNando MD Unavailable Unavailable Flat LickNando MD Unavailable Unavailable Flat LickNando MD Unavailable Unavailable Flat LickNando MD Unavailable Unavailable AugustaNando MD Unavailable Unavailable Flat Lick, Nando Heller MD Unavailable Unavailable AugustaNando MD Unavailable Unavailable Flat LickNando MD Unavailable Unavailable AugustaNando MD Unavailable Unavailable AugustaNando MD Unavailable Unavailable Flat LickNando MD Unavailable Unavailable AugustaNando MD Unavailable Unavailable Flat LickNando MD Unavailable Unavailable Flat LickNando MD Unavailable Unavailable AugustaNando MD Unavailable Unavailable AugustaNando MD Unavailable Unavailable AugustaNando MD Unavailable Unavailable AugustaNando MD Unavailable Unavailable AugustaNando MD Unavailable Unavailable Augusta, Nando Heller MD Unavailable Unavailable Flat LickNando MD Unavailable Unavailable Flat LickNando MD Unavailable Unavailable Flat LickNando MD Unavailable Unavailable AugustaNando MD Unavailable Unavailable [...] is protected by Article 27-F of the [facility] Public Health law. If you continue you may have access to information: Regarding HIV / AIDS; Provided by facilities licensed or operated by the [facility] Office of Mental Health; or Provided by the [facility] Office for People With Developmental Disabilities. If such information is present, then the following [facility] mandated warning applies: This information [...] law may result in a fine or halfway sentence or both. A general authorization for the release of medical or other information is NOT sufficient authorization for further disc losure. Allergies and Adverse Reactions Type Description Substance Reaction Status Data Source(s ) Adverse Reaction Amoxicillin Amoxicillin [facility] ([facility], ) Family History Family Member Name Family Member Gender Family Member Status Date o f Status Description Data Source(s) Unknown Male Problem [facility] Unknown Unknown Problem [facility], ) Unknown Unknown Problem [facility]) father Unknown Male Problem [facility] () Unknown Unknown Problem [facility] ([facility] [place]) Encounters Encounter Providers Location Date Indications Data Source(s ) Outpatient Attender: Raciel Gill MD 10/15/2021 12:0 0:00 AM [facility] Outpatient Attender: Bentley Isaacs/Yumiko/Grabiel/R eindl 08/29/2021 10:00:00 AM EDT [facility] ([facility] Outpatient Attender: HEENA Marquezang/[place]/Grabiel/Reindl 07/28/2021 01:23:00 AM EDT [facility] ([facility]) Outpatient Attender: Bentley Isaacs/Yumiko/Grabiel/R eindl 07/18/2021 02:15:00 PM EDT MED[facility] ([facility]) Outpatient Attender: Bentley Isaacs/Yumiko/Grabiel/R eindl 07/03/2021 01:30:00 PM EDT MED[facility] ([facility]) Outpatient Attender: Sharda Isaacs/Yumiko/Grabiel/Jose ndl 06/21/2021 01:23:00 AM EDT MED[facility] ([facility]) Outpatient Attender: Arron Espinoza 0 06/19/2021 01:30:00 PM EDT MEDENT ([facility] ) Outpatient Attender: JOHNNIE tejada 06/16/2021 10:15:00 AM EDT [facility] ([facility] Outpatient Attender: Arron Espinoza 0 05/23/2021 10:40:00 AM EDT MEDENT ([facility] ) Outpatient Attender: Bentley Isaacs/Yumiko/Grabiel/R eindl 05/21/2021 02:30:00 PM EDT MED[facility] ([facility] Outpatient Attender: FIDELINA Espinoza 0 05/09/2021 09:40:00 AM EDT MED[facility] ([facility] ) Outpatient Attender: HEENA Marquezang/[place]/Grabiel/Reindl 05/04/2021 01:23:00 AM EDT MED[facility] ([facility], ) Outpatient Attender: Freddy Hernandez/[place]/Grabiel/Jose ndl 05/03/2021 01:23:00 AM EDT MED[facility] ([facility], ) Outpatient Attender: Freddy Hernandez/[place]/Grabiel/Jose ndl 05/02/2021 01:23:00 AM EDT MED[facility] ([facility], ) Outpatient Attender: Freddy Hernandez/[place]/Grabiel/Jose ndl 05/01/2021 01:23:00 AM EDT MED[facility] ([facility], ) Outpatient Attender: Sharda Isaacs/[place]/Grabiel/Jose ndl 04/29/2021 01:23:00 AM EDT MED[facility] ([facility], ) Outpatient Attender: Kiel Isaacs/[place]um[place]/Reindl 03/12/2021 03:00:00 PM EDT MED[facility] ([facility], ) Outpatient Attender: Bentley Isaacs/Yumiko/Grabiel/R eindl 03/08/2021 01:45:00 PM EDT MED[facility] ([facility], ) Outpatient Attender: Arron Espinoza 0 12/25/2020 12:00:00 PM EST MED[facility] ([facility] ) Outpatient Attender: Bentley Isaacs/Yumiko/Grabiel/R eindl 12/07/2020 10:15:00 AM EST MED[facility] ([facility], ) Outpatient Attender: Raciel Gill MD 07A-XXHAURO 10/16/2020 12:00:00 AM EST - 10/16/2020 01:50:52 PM EST Retention of urine, unspecified [facility] Retention of urine, unspecified Outpatient Attender: Bentley Isaacs/Yumiko/Grabiel/R eindl 08/29/2020 09:00:00 AM EDT MED[facility] ([facility], ) Outpatient Attender: FIDELINA Espinoza 0 07/21/2020 01:40:00 PM EDT YUNIER ([facility] ) Outpatient Attender: Raciel Gill MD 07A-XXHAURO 06/19/2020 12:00:00 AM EDT - 06/19/2020 03:50:06 PM EDT [facility] Immunizations Vaccine Date Status Description Data Source(s) COVID-19 VACCINE Moderna 12/25/2020 12:00:00 AM EST completed [facility] Vaccine Series Complete: YESThis Data wa s Submitted to [facility] Via [employer]. COVID-19 VACCINE Moderna 11/26/2020 12:00:00 AM EST completed [facility] Vaccine Series Complete: NOThis Data was Submitted to [facility] Via [employer]. This CVX code allows reporting of a vacc ination when formulation is unknown (for example, when recording a Influenza vaccination when noted on a vaccination card) 07/20/2020 08:53:00 AM EDT completed KAYCEE Whitmore ([facility]) Medications Medication Brand Name Start Date [...] propionate 0.05 MG/ACTUAT Metered Dose [place] 50 mcg/actuation FLUTICASONE PROPIONATE 08/06/2021 12:00:00 AM [...] Prednisone 08/02/2021 12:00:00 AM EDT active [facility] 750 mg 07/29/2021 12:00:00 [...] Prednisone 07/03/2021 12:00:00 AM EDT completed [facility] 750 mg 06/22/2021 12:00:00 [...] 1 2:00:00 AM EDT ORAL completed [facility] ([facility]) Mirtazapine 7.5 MG Oral Tablet Mirtazapine 06/19/2021 12:00:00 AM EDT ORAL completed [facility] ([facility]) 10 mg 06/16/2021 12:00:00 AM EDT christie 35 DISSOLVE IN MOUTH 5 TIMES A DAY FOR 7 DAYS DISSOLVE IN MOUTH 5 TIMES A DAY FOR 7 DAYS SOLD: 06/16/2021 [facility] Clotrimazole 10 MG Oral Lozenge Clotrimazole 06/16/2021 12:00:00 AM EDT active [facility] ([facility]) 10 mg 06/02/2021 12:00:00 AM EDT tablet 90 TAKE ONE TABLET BY MOUTH THREE TIMES A DAY TAKE ONE TABLET BY MOUTH THREE TIMES A DAY SOLD: 06/02/2021 [facility] Bacid Bacid 05/09/2021 12:00:00 AM EDT ORAL active MED[facility] ([facility]) 5 mg 05/06/2021 12:00:00 AM EDT [...] 12:00: 00 AM EDT ORAL completed [facility] ([facility], ) 10 mg 04/03/2021 12:00:00 AM EDT [...] 04/03/2021 12:00:00 AM EDT ORAL completed [facility] ([facility], ) 17 gram/dose 03/15/2021 12:00:00 AM EDT [...] 03/12/2021 12:00:00 AM EDT active M EDENT ([facility], ) Acetaminophen 325 MG / Oxycodone [...] 03/12/2021 12:00:00 AM EDT active [facility] ([facility]) 500 mg 02/27/2021 12:00:00 AM EDT tablet 20 TAKE ONE TABLET BY MOUTH TWICE A DAY FOR 10 DAYS TAKE ONE TABLET BY MOUTH TWICE A DAY FOR 10 DAYS SOLD: 02/27/2021 [facility] Ciprofloxacin 500 MG Oral Tablet [Cipro] Cipro 02/27/2021 12:00: 00 AM EDT ORAL completed [facility] ([facility], ) 5-325 mg 02/16/2021 12:00:00 AM EDT [...] Unspecified 12/25/2020 12:00:00 AM EST completed [facility] ([facility], ) Medication administered onsite Oxygen 12/07/2020 12:00:00 AM EST active [facility] ([facility], ) Covid-19 vaccine, Unspecified 11/26/2020 12:00:00 AM EST completed [facility] ([facility]) Medication administered onsite Covid-19 vaccine, Unspecified 11/24/2020 12:00:00 AM EST completed [facility] ([facility], ) Medication administered onsite lidocaine (XYLOCAINE) 2 % urojet 20 mL [address]-8 0 01:30:00 PM EST 20 mL Urethral completed 20 mL, Urethr al, Once, 10/16/20 at 1330, For 1 dose [facility] Medication administered onsite Sulfamethoxazole 800 MG / Trimethoprim 1 60 MG Oral Tablet sulfamethoxazole- trimethoprim (BACTRIM DS) 800-160 MG per tablet 1 tablet sulfamethoxazole- trimethoprim (BACTRIM DS) 800-160 MG per tablet 1 tablet 10/16/2020 01:30:00 PM EST 1 {tbl} Oral completed 1 tabl et, Oral, Once, 10/16/20 at 1330, For 1 dose [facility] Medication administered onsite 120 ACTUAT Albuterol 0.1 MG/ACTUAT / Ipr atropium [place] 0.02 MG/ACTUAT Metered Dose Inhaler [Combivent] Combivent Respimat 20-100 MCG/ACT Inhalation Aerosol Solution Combivent Respimat 20-100 MCG/ACT Inhalation Aerosol S olution 10/12/2020 12:00:00 AM EST [facility] 500 mg 09/04/2020 12:00:00 AM EDT tablet 28 TAKE ONE TABLET BY MOUTH TWICE A DAY FOR 14 DAYS TAKE ONE TABLET BY MOUTH TWICE A DAY FOR 14 DAYS SOLD: 09/04/2020 [facility] Ciprofloxacin 500 MG Oral Tablet [Cipro] Cipro 09/04/2020 12:00: 00 AM EDT ORAL completed [facility] ([facility]) 24 HR mirabegron 50 MG Extended Release Oral Tablet [Myrbetriq] Myrbetriq 50 MG Oral Tablet Extended Release 24 Hour Myrbetriq 50 MG Oral Tablet Extended Release 24 Hour 09/03/2020 12:00:00 AM EDT [facility] 7 ACTUAT umeclidinium 0.0625 MG/ACTUAT D ry Powder Inhaler [Incruse] Incruse Ellipta 62.5 MCG/INH Inhalation Aerosol Powder Breath Activated Incruse Ellipta 62.5 MCG/INH Inhalation Aerosol Powder Breath Activated 09/02/2020 12:00:00 AM EDT active [facility] 20 mg 08/29/2020 12:00:00 AM EDT tablet 14 TAKE 1 TABLT BY MOUTH ALTERNATING WITH 10MG DAILY DIRECTED TAKE 1 TABLT BY MOUTH ALTERNATING WITH 1 0MG DAILY DIRECTED SOLD: 09/28/2020 [facility] Prednisone 20 MG Oral Tablet Prednisone 08/29/2020 12:00:00 AM EDT active [facility] 20 mg 08/29/2020 12:00:00 AM EDT [...] Solution 08/19/2020 12: 00:00 AM EDT active [facility] Nystatin 480645 UNT/ML Oral Suspension N ystatin 804585 UNIT/ML Mouth/Throat Suspension (MYCOSTATIN) Nystatin 866843 UNIT/ML Mouth/Throat [place] pension (MYCOSTATIN) 07/24/2020 12:00:00 AM EDT activ e SWISH AND SPIT 5ML TWO TIMES A DAY NEEDED FOR THRUSH [facility] solifenacin succinate 10 MG Oral Tablet Solifenacin Succinate 10 MG Oral Tablet (VESICARE) Solifenacin Succinate 10 MG Oral Tablet (VESICARE) 10/2020 12:00:00 AM EDT active [facility] Prednisone 10 MG Oral Tablet Prednisone 07/11/2020 12:00:00 AM EDT ORAL completed [facility] ([facility], ) 10 mg 07/11/2020 12:00:00 [...] CAPSULE BY MOUTH EVERY MORNING FOR HYPERTENSION [facility] solifenacin succinate 10 MG Oral Tablet Solifenacin Succinate 10 MG Oral Tablet (VESICARE) Solifenacin Succinate 10 MG Oral Tablet (VESICARE) 05/2020 12:00:00 AM EST 10 mg Oral active Take 1 t ablet by mouth daily [facility] Potassium 99 MG TABS 33588-09863 1 {tbl} Oral abo rted Take 1 tablet by mouth every evening [facility] Probiotic Product ([employer] PROBIOTIC) CHEW [address]-18 2 { tbl} Oral aborted Chew 2 tablets by Mouth nightly [facility] Liberal-3 Fatty Acids (FISH OIL) 1200 MG CAPS 14608-59718 1 {capsule} Oral aborted Take 1 capsule by mouth [facility] Polyvinyl Alcohol 0.014 ML/ML Ophthalmic Solution polyvinyl alcohol (LIQUIFILM TEARS) 1.4 % ophthalmic solution polyvinyl alcohol (LIQUIFILM TEARS) 1.4 % ophthalmic solution 1 [drp] Both Eyes aborted Place 1 drop into both eyes Four times daily [facility] MAGNESIUM PO 500 mg Oral aborted Take 500 mg by mouth Two Times Daily [facility] Insurance Providers Payer name Policy type / Coverage type Policy ID Covered constitution party ID Covered constitution party's relationship to gonzalez Policy Gonzalez Plan Information Yodo[employer] Commercial [id number] [id number] Self S [id number] Yodo1/ADstruc Part B [id number] 2.0.1.768505.3.227.99.4595.3794.0 Self S [id number] Yodo1/ADstruc Part B [id number] 2.0.1.217785.3.227.99.4595.3794.0 Self S [id number] [employer] Part B [id number] 2.0.1.829971.3.227.99.4595.3794.0 Self S [id number] [employer] Commercial [id number] Self BS [employer] Commercial [id number] 2.0.1.479046.3.227.99.4595.3794.0 Self S [id number] [employer]/MX Commercial [id number] 2.0.1.866454.3.227.99.4595.3794.0 Self S [id number] BS [employer] Trad/MX Commercial [id number] 2.0.1.366821.3.227.99.4595.3794.0 Self S [id number] [facility] Trad/MX Commercial [id number] 2.0.1.749255.3.227.99.4595.3794.0 Self S [id number] [facility]/MX Medigap Part B [id number] Self [id number] [facility] Trad/MX Commercial [id number] 2.0.1.787091.3.227.99.4595.3794.0 Self S [id number] [facility] Trad/MX Commercial [id number] 2.0.1.178963.3.227.99.4595.3794.0 Self S [id number] [facility] Trad/MX Commercial [id number] 2..1.853735.3.227.99.4595.3794.0 Self S [id number] MEDICARE [id number] SP [id number] C23 MEDICARE A [id number] Self [id number] WPS For Life Medigap Part B [id number] Self [id number] Medicare [facility] Govt Servic Medicare Primary [id number] Self [id number] Medicare [facility] Medicare Primary [id number] 2.0.1.883170.3.227.99.8646.2797.0 Self 9 [id number] WPS For Life Medigap Part B [id number] 2.16.840.1.927925.3.227.99.4595.3794.0 Self [id number] Medicare Natl Govt Servic Medicare Primary [id number] 2.16.840.1.066406.3.227.99.4595.3794.0 Self 9 [id number] MEDICARE A [id number] Self [id number] WPS For Life Medigap Part B [id number] 2.16840.1.828131.3.227.99.4595.3794.0 Self [id number] Medicare Natl Govt Servic Medicare Primary [id number] 2.16.840.1.923766.3.227.99.4595.3794.0 Self 9 [id number] WPS For Life Medigap Part B [id number] 2.16840.1.594147.3.227.99.4595.3794.0 Self [id number] Medicare Natl Govt Servic Medicare Primary [id number] 2.16840.1.971389.3.227.99.4595.3794.0 Self 9 [id number] Medicare C [id number] SELF [id number] C23 Medicare C [id number] SELF [id number] C23 MEDICARE [id number] SP [id number] A Medicare [facility] Medicare Primary [id number] 2.840.1.184904.3.227.99.8646.2797.0 Self 5 [id number] Medicare - NGS Medicare Primary [id number] 2.16840.1.605157.3.227.99.177.24313.0 Self 5 [id number] WPS For Life Medigap Part B [id number] 2.16840.1.165601.3.227.99.4595.3794.0 Self [id number] Medicare Natl Govt Servic Medicare Primary [id number] 2.16840.1.168454.3.227.99.4595.3794.0 Self 5 [id number] WPS For Life Medigap Part B [id number] 2.16.840.1.009989.3.227.99.4595.3794.0 Self [id number] Medicare Natl Govt Servic Medicare Primary [id number] 2.16.840.1.368812.3.227.99.4595.3794.0 Self 5 [id number] WPS For Life Medigap Part B [id number] 2.16840.1.514872.3.227.99.4595.3794.0 Self [id number] Medicare Natl Govt Servic Medicare Primary [id number] 2.16840.1.392850.3.227.99.4595.3794.0 Self 5 [id number] WPS For Life Medigap Part B [id number] 2.840.1.594630.3.227.99.4595.3794.0 Self [id number] Medicare Natl Govt Servic Medicare Primary [id number] 2.840.1.072049.3.227.99.4595.3794.0 Self 5 [id number] WPS For Life Medigap Part B [id number] 2.16840.1.880900.3.227.99.4595.3794.0 Self [id number] Medicare Natl Govt Servic Medicare Primary [id number] 2.840.1.739333.3.227.99.4595.3794.0 Self 5 [id number] Medicare Natl Gov't Servi Medigap Part B [id number] 2.16840.1.419303.3.227.99.1767.333.0 Self 50 [id number] WPS For Life Medigap Part B [id number] 2.16840.1.649011.3.227.99.4595.3794.0 Self 5 [id number] Medicare Natl Govt Servic Medicare Primary [id number] 2.16840.1.830867.3.227.99.4595.3794.0 Self 5 [id number] WPS For Life Medigap Part B [id number] 2.16.840.1.621688.3.227.99.4595.3794.0 Self 5 [id number] Medicare Natl Govt Serv Medicare Primary [id number] 2.16.840.1.765067.3.227.99.4595.3794.0 Self [id number] - [facility] Medicare Primary [id number] 2.16.840.1.120236.3.227.99.177.24988.0 Self 5 [id number] WPS For Life Medigap Part B [id number] 2.16.840.1.036422.3.227.99.4595.3794.0 Self 5 [id number] Medicare Natl Govt Serv Medicare Primary [id number] 2.16840.1.747088.3.227.99.4595.3794.0 Self 5 [id number] WPS For Life Medigap Part B [id number] Self Medicare Natl Govt Serv Medicare Primary [id number] Self Medicare Medicare Primary [id number] Self [place] Medigap Part B [id number] 2.0.1.270317.3.227.99.177.01324.0 Self S [id number] [employer] Medigap Part B [id number] 2.16.840.1.53202 3.3.227.99.8646.2797.0 Self [id number] BC/BS Of [place] Medigap Part B [id number] 2.16840.1.582940.3.227.99.177.34321.0 Self S [id number] [employer] Medigap Part B [id number] 2.16840.1.70950 3.3.227.99.8646.2797.0 Self [id number] [facility] [employer] Commercial [id number] Self P Commercial [id number] 2.16.840.1.352294.3.227.99.1767.333.0 Self [id number] P Health Maintenance Organization (HMO) [id number] 0 2..840.1.852406.3.227.99.8646.2797.0 Self [id number] [facility] Health Maintenance Organization (HMO) [id number] 0 2..840.1.246244.3.227.99.177.72009.0 Self [id number] [facility] Healthcare Commercial [id number] Self [id number] FOR LIFE U [id number] Self [id number] FOR LIFE U [id number] Self [id number] [facility] Jurisdiction A AKIC C [id number] SELF [id number] For Life F [id number] SELF [id number] Medicare C [id number] SELF [id number] A FOR LIFE U [id number] Self [id number] FOR LIFE U [id number] Self [id number] MEDICARE [id number] Jaimie [id number] C23 [employer] Commercial [id number] 2.0.1.245513.3.227 .99.4595.3794.0 Self [id number] WPS For Life Medigap Part B [id number] 2.840.1.172892.3.227.99.8646.2797.0 Self 5 [id number] DO Not Use (Now #114) Commercial [id number] 2.840.1.437765.3.227.99.4595.3794.0 Self [id number] MEDICARE C [id number] S [id number] A MVP/Preferred Care/[employer] Medigap Part B [id number] Self DO Not Use (Now #114) Commercial [id number] 2.840.1.707118.3.227.99.4595.3794.0 Self [id number] [employer] Commercial [id number] 2.840.1.002325.3.227 .99.4595.3794.0 Self [id number] Select (2017) Health Maintenance Organization (HMO) [id number] 2.840.1.487892.3.227.99.8646.2797.0 Self [id number] DO Not Use (Now #114) Commercial [id number] 2.0.1.848525.3.227.99.4595.3794.0 Self [id number] For Life Medigap Part B [id number] Self [id number] Standard Commercial [id number] 2.0.1.190922.3.227. 99.177.36478.0 Self [id number] For Life Reg 1 Medigap Part B [id number] 2.0.1.543324.3.227.99.177.20781.0 Self [id number] Select (2017) Health Maintenance Organization (HMO) [id number] 2.840.1.957931.3.227.99.8646.2797.0 Self [id number] WPS For Life Medigap Part B [id number] 2.0.1.390884.3.227.99.8646.2797.0 Self 5 [id number] FOR LIFE O [id number] S 0 [id number] Standard Commercial [id number] 2.0.1.818545.3.227. 99.177.43601.0 Self [id number] For Life Reg 1 Medigap Part B [id number] 2.0.1.226927.3.227.99.177.53166.0 Self 5 [id number] FOR LIFE [id number] [employer] Commercial [id number] 2.840.1.108376.3.227 .99.4595.3794.0 Self [id number] [employer] Commercial [id number] .1.408559.3.227 .99.4595.3794.0 Self [id number] MEDICARE PART A M [id number] S [id number] [employer] Commercial [id number] 12.26.830.1.403626.3.227 .99.4595.3794.0 Self [id number] DO Not Use (Now #114) Commercial [id number] Self [id number] FOR LIFE O [id number] S 0 [id number] FOR LIFE O [id number] S [id number] [employer] Commercial [id number] 12.26.830.1.539697.3.227 .99.4595.3794.0 Self [id number] MEDICARE [id number] Jaimie [id number] A [employer] Commercial [id number] .1.314670.3.227 .99.4595.3794.0 Self [id number] [employer] Commercial [id number] Self [id number] Jaimie [id number] [employer] Commercial [id number] .1.694032.3.227 .99.4595.3794.0 Self [id number] MEDICARE M [id number] S [id number] A [id number] A [place] Medigap Part B [id number] .1.547848.3.227.99.1767.333.0 Self SA [id number] For Life WPS Medigap Part B [id number] .1.468079.3.227.99.1767.333.0 Self [id number] Problems, Conditions, and Diagnoses Code Display Name Description Problem Type Effective Dates Data Source(s) R33.9 Retention of urine, unspecified Retention of urine, un specified Diagnosis 10/16/2020 11:57:44 AM [facility] Surgeries/Procedures Procedure Description Date Indications Data Source(s) OFFICE OUTPATIENT VISIT 25 MINUTES 08/29/2021 12:00:00 AM EDT [facility] ([facility], ) [facility] HOSPITAL CARE/DAY 25 MINUTES 07/28/2021 12:00:00 AM EDT [facility] ([facility], ) OFFICE OUTPATIENT VISIT 25 MINUTES 07/18/2021 12:00:00 AM EDT [facility] ([facility], ) OFFICE OUTPATIENT VISIT 25 MINUTES 07/03/2021 12:00:00 AM EDT [facility] ([facility], ) [facility] HOSPITAL CARE/DAY 25 MINUTES 06/21/2021 12:00:00 AM EDT [facility] ([facility], ) OFFICE OUTPATIENT VISIT 25 MINUTES 06/19/2021 12:00:00 AM EDT [facility] ([facility]) OFFICE OUTPATIENT NEW 30 MINUTES 06/16/2021 12:00:00 A M EDT [facility] ([facility]) OFFICE OUTPATIENT VISIT 25 MINUTES 05/23/2021 12:00:00 AM EDT [facility] ([facility]) OFFICE OUTPATIENT VISIT 25 MINUTES 05/21/2021 12:00:00 AM EDT [facility] ([facility], ) [facility] SRV W/I 7 Days Of DC, Comm W/I 2 Dys Med Rec 05/09/2021 12:00:00 AM EDT [facility] ([facility] ) [facility] HOSPITAL CARE/DAY 25 MINUTES 05/04/2021 12:00:00 AM EDT [facility] ([facility], ) [facility] HOSPITAL CARE/DAY 25 MINUTES 05/03/2021 12:00:00 AM EDT [facility] ([facility], ) [facility] HOSPITAL CARE/DAY 25 MINUTES 05/02/2021 12:00:00 AM EDT [facility] ([facility], ) [facility] HOSPITAL CARE/DAY 25 MINUTES 05/01/2021 12:00:00 AM EDT [facility] ([facility], ) INITIAL HOSPITAL CARE/DAY 30 MINUTES 04/29/2021 12:00: 00 AM EDT [facility] ([facility], ) OFFICE OUTPATIENT NEW 30 MINUTES 03/12/2021 12:00:00 A M EDHaim FAYE ([facility]) OFFICE OUTPATIENT VISIT 25 MINUTES 03/08/2021 12:00:00 AM EDT YUNIER ([facility]) OFFICE OUTPATIENT VISIT 25 MINUTES 12/25/2020 12:00:00 AM EST YUNIER ([facility]) OFFICE OUTPATIENT VISIT 25 MINUTES 12/07/2020 12:00:00 AM EST YUNIER ([facility]) COMPLEX UROFLOMETRY <td>COMPLEX UROFLOWMETRY</td ><td>Routine</td><td>10/16/2020 12:29 PM EST</td><td> Urinary retention</td><td></td> 10/16/2020 12:29:28 PM EST Urinary retention [facility] Urinary retention MARTHA POST-VOIDING RESIDUAL URINE&/BLDR CAP <td>BLADDER SCAN, POST VOID</td><td>Routine</td><td>10/16/2020 12:20 PM EST</td><td> H/O urethral stricture</td><td></td> 10/16/2020 12:20:48 PM EST H/O urethral stricture [facility] H/O urethral stricture Spirometry 08/29/2020 12:00:00 AM EDT Michele WEBB ([facility]) Results ID Date Data Source [id number] 08/29/2021 10:13:00 AM EDT YUNIER ([facility]) Name Value Range Interpretation Code Description Data Steffi rce(s) Supporting Document(s) Bacteria identified in Sputum by Aerobe culture Laboratory test result Normal (applies to non-numeric results) YUNIER ([facility], ) QUALITY: GOOD MANY WBCS FEW EPITHELIAL CELLS MANY GRAM POSITIVE COCCI IN PAIRS AND CHAINS FEW GRAM POSITIVE RODS ID Date Data Source [id number] 07/27/2021 02:38:00 PM EDT [facility] Name Value Range Interpretation Code Description Data Steffi rce(s) Supporting Document(s) SARS-CoV-2 (COVID 19) NEGATIVE - SARS-CoV-2 (COVID19) [facility] This lab was ordered by [facility] a nd reported by [facility]. ID Date Data Source [id number] 07/18/2021 12:57:00 PM EDT [facility] ([facility]) Name Value Range Interpretation Code Description Data Steffi rce(s) Supporting Document(s) Leukocytes [#/volume] in Blood by Automated count 11.5 x10*3/UL 4.1-1 0.9 [facility] ([facility]) NOTE: RESULT VERIFIED. Erythrocytes [#/volume] in Blood by Automated count 5.26 x10*6/UL 4.2 0-6.30 [facility] ([facility]) Hemoglobin [Mass/volume] in Blood 11.7 g/dL 12.0-18.0 [facility] ([facility]) Hematocrit [Volume Fraction] of Blood by Automated count 36.5 % 3 7.0-51.0 [facility] ([facility]) MCV 69.4 fL 80.0-97.0 [facility]) MCH 22.3 pg 26.0-32.0 [facility] MCHC 32.1 g/dL 31.0-38.0 [facility] ([facility]) Erythrocyte distribution width [Ratio] by Automated count 15.6 % 11.6-13.7 [facility] ([facility]) Platelets [#/volume] in Blood by Automated count 281 x10*3/UL 140-440 [facility] ([facility]) MPV 7.2 FL 7.8-11.0 [facility] Lymph % 5.0 % 10.0-58.5 [facility] Mid % 1.8 % 1.7-9.3 [facility] Lymph # 0.5 x10*3/UL 0.6-4.1 [facility] ([facility]) Neut % 93.2 % 37.0-92.0 [facility] Mid # 0.2 x10*3/UL 0.1-0.6 [facility] ([facility]) Neut # 10.8 x10*3/UL 2.0-7.8 [facility] ID Date Data Source [id number] 07/18/2021 12:57:00 PM EDT [facility] ([facility]) Name Value Range Interpretation Code Description Data Steffi rce(s) Supporting Document(s) Alkaline phosphatase isoenzyme [Units/volume] in Serum or Pl asma 81 mg/dL 46-116 [facility] ([facility]) Aspartate aminotransferase [Enzymatic activity/volume] in Serum or Plasma 33 U/L 15-37 [facility] ([facility] ) Total Bilirubin 0.3 mg/dL 0.2-1.0 [facility] ([facility]) Albumin [Mass/volume] in Serum or Plasma 2.9 g/dL 3.4-5.0 [facility] ([facility]) Alanine aminotransferase [Enzymatic activity/volume] in Seru m or Plasma 69 U/L 12-78 [facility] Proteinase 3 Ab [Units/volume] in Serum 6.6 g/dL 6.4-8.2 [facility] ([facility]) A/G Ratio 0.78 CALC 1.00-1.90 [facility] ([facility]) Direct Bilirubin 0.1 mg/dL 0.0-0.2 [facility] ([facility]) ID Date Data Source [id number] 07/09/2021 08:00:00 AM EDT [facility] ([facility]) Name Value Range Interpretation Code Description Data Steffi rce(s) Supporting Document(s) Urine Color Laboratory test result MED[facility] T ([facility]) Urine Appearance Laboratory test result [facility] ([facility]) Urine PH 6.5 units 5.0-9.0 [facility] Urine Leukocytes Laboratory test result [facility] ([facility]) Specific gravity of Urine 1.015 1.005-1.030 [place] [facility] ([facility]) Urine Protein Laboratory test result 0-0 [facility] ([facility]) Urine Blood Laboratory test result [facility] T ([facility]) Glucose [Presence] in Urine [facility] Urine Nitrite Laboratory test result [facility] ([facility]) Urine Ketone Laboratory test result MEDE NT ([facility]) Bilirubin.total [Mass/volume] in Serum or Plasma Laboratory test resu lt [facility] ([facility]) Urine Urobilinogen 0.2 mg/dL 0.2-1.0 [facility] ([facility]) ID Date Data Source [id number] 07/06/2021 02:37:00 PM EDT [facility] ([facility]) Name Value Range Interpretation Code Description Data Steffi rce(s) Supporting Document(s) Neutrophils 88 % 28-66 [facility] ([facility]) Lymphocytes 5 % 16-44 [facility] ([facility]) Monocytes 7 % 0-5 [facility]) Platelet Estimate Laboratory test result [facility] ([facility]) ID Date Data Source [id number] 07/06/2021 02:36:00 PM EDT [facility] ([facility]) Name Value Range Interpretation Code Description Data Steffi rce(s) Supporting Document(s) Glucose [Mass/volume] in Serum or Plasma 107 mg/dL 74-99 [facility] ([facility]) 100-125 mg/dL PRE-DIABETES/FASTING >126 mg/dL DIABETES/FASTING Creatinine 0.7 mg/dL 0.6-1.3 [facility] ([facility]) Urea nitrogen [Mass/volume] in Serum or Plasma 28 mg/dL 7-18 [facility] ([facility]) Sodium [Moles/volume] in Serum or Plasma 137 meq/L 136-145 [facility] ([facility]) Chloride [Moles/volume] in Serum or Plasma 104 meq/L 98-107 [facility] ([facility]) Potassium [Moles/volume] in Serum or Plasma 4.5 meq/L 3.5-5.1 [facility] ([facility]) Calcium [Mass/volume] in Serum or Plasma 8.8 mg/dL 8.5-10.1 [facility] ([facility]) Carbon dioxide, total [Moles/volume] in Serum or Plasma 31 meq/L 21 -32 [facility] ([facility]) Alkaline phosphatase isoenzyme [Units/volume] in Serum or Pl asma 82 mg/dL 46-116 [facility] ([facility]) Aspartate aminotransferase [Enzymatic activity/volume] in Serum or Plasma 24 U/L 15-37 [facility] ([facility] ) Total Bilirubin 0.3 mg/dL 0.2-1.0 [facility] ([facility]) Albumin [Mass/volume] in Serum or Plasma 2.8 g/dL 3.4-5.0 [facility] ([facility]) Alanine aminotransferase [Enzymatic activity/volume] in Seru m or Plasma 80 U/L 12-78 [facility] ([facility]) Proteinase 3 Ab [Units/volume] in Serum 6.8 g/dL 6.4-8.2 [facility] ([facility]) A/G Ratio 0.70 CALC 1.00-1.90 [facility]) Glomerular filtration rate/1.73 sq M pre dicted among non-blacks [Volume Rate/Area] in Serum or Plasma by Creatinine-based formula (MDRD) Laboratory test [facility] Glomerular filtration rate/1.73 sq M pre dicted among blacks [Volume Rate/Area] in Serum or Plasma by Creatinine-based formula (MDRD) Laboratory test result [facility] ([facility]) <content>CHRONIC KIDNEY DISEASE STAGING PER NKF</content>
<content></content>
<content>STAGE I & II GFR >= 60 NORMAL TO MILDLY DECREASED</content>
<content>STAGE III GFR 30-59 MODERATELY DECREASED</content>
<content>STAGE IV GFR 15-29 SEVERELY DECREASED</content>
<content>STAGE V GFR <15 VERY LITTLE GFR LEFT</content>
<content>ESRD GFR <15 ON FACILITY ADMINISTRATOR</content>
<content></content> ID Date Data Source [id number] 07/06/2021 02:36:00 PM EDT [facility] Name Value Range Interpretation Code Description Data Steffi rce(s) Supporting Document(s) Leukocytes [#/volume] in Blood by Automated count 18.1 x10*3/UL 4.1-1 0.9 [facility] ([facility]) NOTE: RESULT VERIFIED .MANUAL DIFFERENTIAL SENT TO [facility] FOR [facility] IFICATION. Erythrocytes [#/volume] in Blood by Automated count 4.93 x10*6/UL 4.2 0-6.30 [facility] ([facility]) Hemoglobin [Mass/volume] in Blood 11.4 g/dL 12.0-18.0 [facility] ([facility]) MCH 23.1 pg 26.0-32.0 [facility] ([facility]) MCV 69.8 fL 80.0-97.0 [facility] ([facility]) Hematocrit [Volume Fraction] of Blood by Automated count 34.4 % 3 7.0-51.0 [facility] ([facility]) Erythrocyte distribution width [Ratio] by Automated count 16.3 % 11.6-13.7 [facility] ([facility]) MCHC 33.1 g/dL 31.0-38.0 [facility] ([facility]) Platelets [#/volume] in Blood by Automated count 210 x10*3/UL 140-440 [facility] ([facility]) MPV 7.0 FL 7.8-11.0 [facility] ([facility]) Lymph % 3.0 % 10.0-58.5 [facility] ([facility]) Neut % 89.0 % 37.0-92.0 [facility] ([facility]) Mid % 8.0 % 1.7-9.3 [facility] ([facility]) Mid # 1.5 x10*3/UL 0.1-0.6 [facility] ([facility]) Lymph # 0.5 x10*3/UL 0.6-4.1 [facility] ([facility]) Neut # 16.1 x10*3/UL 2.0-7.8 [facility] ([facility]) ID Date Data Source [id number] 06/20/2021 11:28:00 PM EDT [facility] ([facility]) Name Value Range Interpretation Code Description Data Steffi rce(s) Supporting Document(s) ABG pH (Arterial) 7.471 units 7.350-7.450 [facility] ( [facility]) ABG Partial Pressure O2 107.9 mmHg 75.0-100.0 MEDE NT ([facility]) ABG Partial Pressure Co2 38.5 mmHg 35.0-45.0 MEDEN T ([facility]) ABG Total Co2 28.6 meq/L 23.0-31.0 [facility] ([facility]) ABG Hco3 27.5 meq/L 22.0-26.0 [facility] ABG Base Excess 3.6 [facility] ([facility]) ABG Standard Hco3 27.7 meq/L 22.0-26.0 [facility] ([facility]) ABG O2 Saturation 98.3 % 95.0-99.0 [facility] ([facility]) ID Date Data Source [id number] 06/20/2021 06:15:00 PM EDT [facility] ([facility]) Name Value Range Interpretation Code Description Data Steffi rce(s) Supporting Document(s) Laboratory test finding (navigational concept) 33.0 % 38.0-51.0 [facility] ([facility]) Laboratory test finding (navigational concept) 141 mg/dL 70-105 [facility] ([facility]) Laboratory test finding (navigational concept) 136 meq/L 136-145 [facility] ([facility]) Laboratory test finding (navigational concept) 4.3 meq/L 3.5-5.1 [facility] ([facility]) Laboratory test finding (navigational concept) 99 meq/L 98-109 [facility] ([facility]) Laboratory test finding (navigational concept) 4.7 mg/dL 4.5-5.3 [facility] ([facility]) Laboratory test finding (navigational concept) 24.0 MM/L 23.0-27.0 [facility] ([facility]) Laboratory test finding (navigational concept) 28 mg/dL 8-26 [facility] ([facility]) Laboratory test finding (navigational concept) 0.4 mg/dL 0.6-1.3 [facility] ([facility]) ID Date Data Source [id number] 06/20/2021 05:58:00 PM EDT [facility] ([facility]) Name Value Range Interpretation Code Description Data Steffi rce(s) Supporting Document(s) White Blood Count 8.8 10 4.0-10.0 [facility] ([facility]) Hemoglobin 10.2 g/dL 13.5-17.5 [facility] ([facility]) Red Blood Count 4.60 10 4.30-6.10 [facility] ([facility]) Mean Corpuscular Volume 72.2 fl 80.0-96.0 [facility] ([facility]) Hematocrit 33.2 % 42.0-52.0 [facility] ([facility]) Mean Corpuscular HGB Conc 30.7 g/dL 32.0-36.5 MEDE NT ([facility]) Mean Corpuscular Hemoglobin 22.2 pg 27.0-33.0 [facility] ([facility]) Platelet Count, Automated 330 10 150-450 MEDE NT ([facility]) Red Cell Distribution Width 16.0 % 11.5-14.5 ME [facility] ([facility]) Neutrophils % 87.3 % 36.0-66.0 [facility] ([facility]) [place] % 5.3 % 2.0-8.0 [facility]) Lymph % 6.3 % 24.0-44.0 [facility]) Baso % 0.3 % 0.0-1.0 [facility]) Eos % 0.0 % 0.0-3.0 [facility]) Nucleated Red Blood Cell % 0.0 % 0-0 MED ENT ([facility]) Immature Granulocyte % 0.8 % 0-3.0 [facility] ([facility]) Neutrophils # 7.7 10 1.5-8.5 [facility] ([facility]) [place] # 0.5 10 0.0-0.8 [facility] ([facility]) Lymph # 0.6 10 1.5-5.0 [facility] ([facility]) Baso # 0.0 10 0.0-0.2 [facility] ([facility]) Eos # 0.0 10 0.0-0.5 [facility] ([facility]) ID Date Data Source [id number] 06/20/2021 05:58:00 PM EDT [facility] ([facility]) Name Value Range Interpretation Code Description Data Steffi rce(s) Supporting Document(s) Lactate [Mass/volume] in Serum or Plasma 1.1 mmol/L 0.4-2.0 [facility] ([facility]) Y/N query for Sepsis Lactate Rule: Y ID Date Data Source [id number] 06/20/2021 05:58:00 PM EDT [facility] ([facility]) Name Value Range Interpretation Code Description Data Steffi rce(s) Supporting Document(s) Alt/SGPT 244 U/L 12-78 [facility] ([facility]) Ast/Sgot 115 U/L 7-37 [facility] ([facility]) Alkaline Phosphatase 143 U/L 45-117 [facility] ([facility]) Bilirubin,Total 0.3 mg/dL 0.2-1.0 [facility] ([facility]) Bilirubin,Direct 0.1 mg/dL 0.0-0.2 [facility] ([facility]) Total Protein 6.5 GM/DL 6.4-8.2 [facility] ([facility]) Albumin 2.4 GM/DL 3.2-5.2 [facility] ([facility]) Albumin/Globulin Ratio 0.6 [facility] ([facility]) ID Date Data Source [id number] 06/20/2021 05:58:00 PM EDT [facility] ([facility]) Name Value Range Interpretation Code Description Data Steffi rce(s) Supporting Document(s) Natriuretic peptide.B prohormone N-Terminal [Mass/volu me] in Serum or Plasma 698 pg/mL [facility] ([facility] ) Thyrotropin [Units/volume] in Serum or Plasma by Detec tion limit <= 0.05 mIU/L 0.820 uIU/ML 0.358-3.740 [facility] ID Date Data Source [id number] 06/20/2021 05:58:00 PM EDT [facility] Name Value Range Interpretation Code Description Data Steffi rce(s) Supporting Document(s) Influenza B Amplification Laboratory test result [facility] ([facility]) Negative results do not preclude influen za or RSV virus infection and should not be used as the sole basis for treatment or other patient management decisions. Influenza A Amplification Laboratory test result [facility] Negative results do not preclude influen za or RSV virus infection and should not be used as the sole basis for treatment or other patient management decisions. RSV Amplification Laboratory test result [facility] Negative results do not preclude influen za or RSV virus infection and should not be used as the sole basis for treatment or other patient management decisions. Laboratory test finding (navigational concept) Laboratory test result [facility] ([facility]) A false negative result may occur [...] pathogens. DISCLAIMER: Testing was performed using the [employer] SARS-CoV-2 test. This test was developed and its performance characteristics determined by [employer]. This test has not been FDA cleared [...] or revoked sooner. ID Date Data Source [id number] 06/20/2021 05:58:00 PM EDT [facility] Name Value Range Interpretation Code Description Data Steffi rce(s) Supporting Document(s) SARS coronavirus 2 RNA [Presence] in Res piratory specimen by MICHELLE with probe detection NEGATIVE [facility] This lab was ordered by [facility] a nd reported by [facility]. ID Date Data Source [id number] 06/19/2021 02:52:00 PM EDT [facility] ([facility]) Name Value Range Interpretation Code Description Data Steffi rce(s) Supporting Document(s) Glucose [Mass/volume] in Serum or Plasma 149 mg/dL 74-99 [facility] ([facility]) 100-125 mg/dL PRE-DIABETES/FASTING >126 mg/dL DIABETES/FASTING Urea nitrogen [Mass/volume] in Serum or Plasma 30 mg/dL 7-18 [facility] ([facility]) Creatinine 0.8 mg/dL 0.6-1.3 [facility] ([facility]) Sodium [Moles/volume] in Serum or Plasma 134 meq/L 136-145 [facility] ([facility]) Potassium [Moles/volume] in Serum or Plasma 4.8 meq/L 3.5-5.1 [facility] ([facility]) Calcium [Mass/volume] in Serum or Plasma 9.4 mg/dL 8.5-10.1 [facility] ([facility]) Chloride [Moles/volume] in Serum or Plasma 99 meq/L 98-107 [facility] ([facility]) Carbon dioxide, total [Moles/volume] in Serum or Plasma 28 meq/L 21 -32 [facility] ([facility]) Total Bilirubin 0.5 mg/dL 0.2-1.0 [facility] ([facility]) Alkaline phosphatase isoenzyme [Units/volume] in Serum or Pl asma 175 mg/dL 46-116 [facility] ([facility]) Alanine aminotransferase [Enzymatic activity/volume] in Seru m or Plasma 294 U/L 12-78 [facility] ([facility]) Aspartate aminotransferase [Enzymatic activity/volume] in Serum or Plasma 169 U/L 15-37 [facility] ([facility] ) Proteinase 3 Ab [Units/volume] in Serum 7.5 g/dL 6.4-8.2 [facility] ([facility]) Albumin [Mass/volume] in Serum or Plasma 2.5 g/dL 3.4-5.0 [facility] ([facility]) A/G Ratio 0.50 CALC 1.00-1.90 [facility]) Glomerular filtration rate/1.73 sq M pre dicted among non-blacks [Volume Rate/Area] in Serum or Plasma by Creatinine-based formula (MDRD) Laboratory test result [facility] Glomerular filtration rate/1.73 sq M pre dicted among blacks [Volume Rate/Area] in Serum or Plasma by Creatinine-based formula (MDRD) Laboratory test result [facility]) <content>CHRONIC KIDNEY DISEASE STAGING PER NKF</content>
<content></content>
<content>STAGE I & II GFR >= 60 NORMAL TO MILDLY DECREASED</content>
<content>STAGE III GFR 30-59 MODERATELY DECREASED</content>
<content>STAGE IV GFR 15-29 SEVERELY DECREASED</content>
<content>STAGE V GFR <15 VERY LITTLE GFR LEFT</content>
<content>ESRD GFR <15 ON FACILITY ADMINISTRATOR</content>
<content></content> ID Date Data Source [id number] 06/19/2021 02:52:00 PM EDT [facility] Name Value Range Interpretation Code Description Data Steffi rce(s) Supporting Document(s) Erythrocytes [#/volume] in Blood by Automated count 4.70 x10*6/UL 4.2 0-6.30 [facility] ([facility]) Leukocytes [#/volume] in Blood by Automated count 10.3 x10*3/UL 4.1-1 0.9 [facility] ([facility]) Hemoglobin [Mass/volume] in Blood 11.2 g/dL 12.0-18.0 [facility] ([facility]) NOTE: RESULT VERIFIED. Hematocrit [Volume Fraction] of Blood by Automated count 33.0 % 3 7.0-51.0 [facility] ([facility]) MCH 23.8 pg 26.0-32.0 [facility] ([facility]) MCV 70.2 fL 80.0-97.0 [facility] ([facility]) Erythrocyte distribution width [Ratio] by Automated count 15.0 % 11.6-13.7 [facility]) MCHC 33.9 g/dL 31.0-38.0 [facility] ([facility]) Platelets [#/volume] in Blood by Automated count 332 x10*3/UL 140-440 [facility] ([facility]) MPV 7.1 FL 7.8-11.0 [facility] ([facility]) Lymph % 4.7 % 10.0-58.5 [facility] ([facility]) Mid % 1.6 % 1.7-9.3 [facility] ([facility]) Neut % 93.7 % 37.0-92.0 [facility] ([facility]) Lymph # 0.4 x10*3/UL 0.6-4.1 [facility] ([facility]) Mid # 0.3 x10*3/UL 0.1-0.6 [facility] ([facility]) Neut # 9.6 x10*3/UL 2.0-7.8 [facility] ([facility]) ID Date Data Source [id number] 06/16/2021 12:00:00 AM EDT [facility] Name Value Range Interpretation Code Description Data Steffi rce(s) Supporting Document(s) SARS-CoV2 Rapid Antigen Negative [facility] This lab was reported by [facility]. ID Date Data Source [id number] 06/13/2021 12:00:00 AM EDT [facility] Name Value Range Interpretation Code Description Data Steffi rce(s) Supporting Document(s) SARS-CoV2 Rapid Antigen Negative [facility] and reported by [facility]. ID Date Data Source [id number] 05/09/2021 10:24:00 AM EDT [facility] ([facility]) Name Value Range Interpretation Code Description Data Steffi rce(s) Supporting Document(s) Glucose [Mass/volume] in Serum or Plasma 87 mg/dL 74-99 [facility] ([facility]) 100-125 mg/dL PRE-DIABETES/FASTING >126 mg/dL DIABETES/FASTING Sodium [Moles/volume] in Serum or Plasma 136 meq/L 136-145 [facility] ([facility]) Creatinine 0.8 mg/dL 0.6-1.3 [facility] ([facility]) Urea nitrogen [Mass/volume] in Serum or Plasma 14 mg/dL 7-18 [facility] ([facility]) Potassium [Moles/volume] in Serum or Plasma 3.6 meq/L 3.5-5.1 [facility] ([facility]) Chloride [Moles/volume] in Serum or Plasma 100 meq/L 98-107 [facility] ([facility]) Carbon dioxide, total [Moles/volume] in Serum or Plasma 26 meq/L 21 -32 [facility] ([facility]) Calcium [Mass/volume] in Serum or Plasma 8.4 mg/dL 8.5-10.1 [facility] ([facility]) NOTE: RESULT VERIFIED. Glomerular filtration rate/1.73 sq M pre dicted among blacks [Volume Rate/Area] in Serum or Plasma by Creatinine-based formula (MDRD) Laboratory test result [facility] <content>CHRONIC KIDNEY DISEASE STAGING PER NKF</content>
<content></content>
<content>STAGE I & II GFR >= 60 NORMAL TO MILDLY DECREASED</content>
<content>STAGE III GFR 30-59 MODERATELY DECREASED</content>
<content>STAGE IV GFR 15-29 SEVERELY DECREASED</content>
<content>STAGE V GFR <15 VERY LITTLE GFR LEFT</content>
<content>ESRD GFR <15 ON FACILITY ADMINISTRATOR</content>
<content></content> Glomerular filtration rate/1.73 sq M pre dicted among non-blacks [Volume Rate/Area] in Serum or Plasma by Creatinine-based formula (MDRD) Laboratory test result [facility] ([facility] ) ID Date Data Source [id number] 05/09/2021 10:24:00 AM EDT [facility] ([facility]) Name Value Range Interpretation Code Description Data Steffi rce(s) Supporting Document(s) Leukocytes [#/volume] in Blood by Automated count 16.6 x10*3/UL 4.1-1 0.9 [facility] ([facility]) NOTE: RESULT VERIFIED. Erythrocytes [#/volume] in Blood by Automated count 4.62 x10*6/UL 4.2 0-6.30 [facility] ([facility]) Hemoglobin [Mass/volume] in Blood 11.1 g/dL 12.0-18.0 [facility] ([facility]) Hematocrit [Volume Fraction] of Blood by Automated count 33.0 % 3 7.0-51.0 [facility] ([facility]) MCV 71.5 fL 80.0-97.0 [facility] ([facility]) MCHC 33.6 g/dL 31.0-38.0 [facility] ([facility]) Erythrocyte distribution width [Ratio] by Automated count 14.7 % 11.6-13.7 [facility] ([facility]) MCH 24.1 pg 26.0-32.0 [facility] ([facility]) Platelets [#/volume] in Blood by Automated count 324 x10*3/UL 140-440 [facility] ([facility]) MPV 7.5 FL 7.8-11.0 [facility] ([facility]) Lymph % 5.9 % 10.0-58.5 [facility] ([facility]) Mid % 1.9 % 1.7-9.3 [facility] Lymph # 0.9 x10*3/UL 0.6-4.1 [facility] ([facility]) Neut % 92.2 % 37.0-92.0 [facility] ([facility]) Mid # 0.4 x10*3/UL 0.1-0.6 [facility] ([facility]) Neut # 15.3 x10*3/UL 2.0-7.8 [facility] ([facility]) ID Date Data Source [id number] 04/28/2021 01:40:00 PM EDT [facility] ([facility]) Name Value Range Interpretation Code Description Data Steffi rce(s) Supporting Document(s) Respiratory Panel Laboratory test result [facility] ([facility]) This respiratory PCR panel detects Influ [...] - SARS-CoV-2 (COVID19) ID Date Data Source [id number] 04/28/2021 01:40:00 PM EDT [facility] ([facility] Name Value Range Interpretation Code Description Data Steffi rce(s) Supporting Document(s) Platelets [#/volume] in Blood by Estimate Laboratory test result [facility] ([facility]) ID Date Data Source [id number] 04/28/2021 01:40:00 PM EDT [facility] ([facility]) Name Value Range Interpretation Code Description Data Steffi rce(s) Supporting Document(s) Neutrophils 62 % 28-66 [facility] ([facility]) Bands 30 % [facility] ([facility]) Lymphocytes 1 % 16-44 [facility] ([facility]) Eosinophils 2 % 0-3 [facility] ([facility]) Monocytes 5 % 0-5 [facility] ([facility]) Microcytosis Laboratory test result [facility] ([facility]) Anisocytosis Laboratory test result [facility] ([facility]) ID Date Data Source [id number] 04/28/2021 01:40:00 PM EDT [facility] ([facility]) Name Value Range Interpretation Code Description Data Steffi rce(s) Supporting Document(s) White Blood Count 21.6 10 4.0-10.0 [facility] ([facility]) Red Blood Count 4.87 10 4.30-6.10 [facility] ([facility]) Hemoglobin 11.6 g/dL 13.5-17.5 [facility] ([facility]) Hematocrit 35.9 % 42.0-52.0 [facility] ([facility]) Mean Corpuscular Volume 73.7 fl 80.0-96.0 [facility] ([facility]) Mean Corpuscular Hemoglobin 23.8 pg 27.0-33.0 [facility] ([facility]) Red Cell Distribution Width 14.9 % 11.5-14.5 [facility] ([facility]) Mean Corpuscular HGB Conc 32.3 g/dL 32.0-36.5 [facility] ([facility]) Platelet Count, Automated 323 10 150-450 [facility] ([facility]) Nucleated Red Blood Cell % 0.0 % 0-0 [facility] ([facility]) ID Date Data Source [id number] 04/28/2021 01:40:00 PM EDT [facility] Name Value Range Interpretation Code Description Data Steffi rce(s) Supporting Document(s) SARS-CoV-2 (COVID 19) NEGATIVE - SARS-CoV-2 (COVID19) [facility] This lab was ordered by [facility] a nd reported by [facility]. ID Date Data Source [id number] 04/28/2021 01:24:00 PM EDT [facility] ([facility]) Name Value Range Interpretation Code Description Data Steffi rce(s) Supporting Document(s) Natriuretic peptide.B prohormone N-Terminal [Mass/volu me] in Serum or Plasma 2940 pg/mL [facility] ([facility] ) Thyroxine (T4) Ab [Units/volume] in Serum 6.4 ug/dL 4.5-12.0 [facility]) Thyrotropin [Units/volume] in Serum or Plasma by Detec tion limit <= 0.05 mIU/L 1.020 uIU/ML 0.358-3.740 [facility] ([facility] ) ID Date Data Source [id number] 04/28/2021 01:24:00 PM EDT [facility] ([facility]) Name Value Range Interpretation Code Description Data Steffi rce(s) Supporting Document(s) Blood Urea Nitrogen 28 mg/dL 7-18 [facility] ([facility]) Glucose, Fasting 125 mg/dL 70-100 [facility] ([facility]) Glomerular Filtration Rate Laboratory test result [facility] ([facility]) <content>Units are mL/min/1.73 m2</content>
<content></content>
<content>Chronic Kidney Disease Staging per NKF:</content>
<content></content>
<content>Stage I & II GFR >=60 Normal to Mildly Decreased</content>
<content>Stage III GFR 30- 59 Moderately Decreased</content>
<content>Stage IV GFR 15-29 Severely Decreased</content>
<content>Stage V GFR <15 Very Little GFR Left</content>
<content>ESRD GFR <15 on FACILITY ADMINISTRATOR</content>
<content></content> Creatinine For GFR 1.13 mg/dL 0.70-1.30 [facility] ([facility]) Sodium Level 130 meq/L 136-145 [facility] ([facility]) Chloride Level 99 meq/L 98-107 [facility] ([facility]) Potassium Serum 4.9 meq/L 3.5-5.1 [facility] ([facility]) Carbon Dioxide Level 22 meq/L 21-32 [facility] ([facility]) Calcium Level 8.3 mg/dL 8.8-10.2 [facility] ([facility]) Anion Gap 9 meq/L 8-16 [facility] ([facility]) ID Date Data Source [id number] 04/28/2021 01:24:00 PM EDT [facility] ([facility]) Name Value Range Interpretation Code Description Data Steffi rce(s) Supporting Document(s) Ast/Sgot 33 U/L 7-37 [facility] ([facility]) Bilirubin,Total 0.5 mg/dL 0.2-1.0 [facility] ([facility]) Alt/SGPT 56 U/L 12-78 [facility] ([facility]) Alkaline Phosphatase 78 U/L 45-117 [facility] ([facility]) Bilirubin,Direct 0.2 mg/dL 0.0-0.2 [facility] ([facility]) Total Protein 6.2 GM/DL 6.4-8.2 [facility] ([facility]) Albumin 2.2 GM/DL 3.2-5.2 [facility] ([facility]) Albumin/Globulin Ratio 0.6 [facility] ([facility]) ID Date Data Source [id number] 04/28/2021 01:24:00 PM EDT [facility] ([facility]) Name Value Range Interpretation Code Description Data Steffi rce(s) Supporting Document(s) CPK Creatine Phosphokinase 143 U/L 39-308 [facility] ([facility]) Troponin I 0.07 ng/mL [facility] ([facility]) <content>Troponin I Reference Interval f or Siemens [place] LOCI:</content>
<content></content>
<content>99th Percentile= 0.00-0.045 ng/ml</content>
<content></content>
<content>Risk Stratification:</content>
<content><= 0.10 ng/ml Decreased Risk for Adverse Clinical</content>
<content>Events.</content>
<content>0.10-1.50 ng/ml Increased Risk for Adverse Clinical</content>
<content>Events. Evaluation of additional</content>
<content>criterion and/or repeat testing in 2-6</content>
<content>hours is suggested to rule out myocardial</content>
<content>damage.</content>
<content>>= 1.50 ng/ml Indicative of Myocardial Injury.</content>
<content></content> MB/CK Relative Index 2.24 [facility] ([facility]) <content>DIAGNOSIS CRITERIA</content>
<content>MMB ng/ml Relative Index (RI)</content>
<content>NON-AMI < or = 5 N/A</content>
<content>MONTEMAYOR ZONE > 5 < or = 4</content>
<content>AMI > 5 > 4</content>
<content></content> CK-MB Value Mass 3.2 ng/mL [facility] ([facility]) ID Date Data Source [id number] 04/28/2021 01:24:00 PM EDT [facility] ([facility]) Name Value Range Interpretation Code Description Data Steffi rce(s) Supporting Document(s) Lactate [Mass/volume] in Serum or Plasma 1.6 mmol/L 0.4-2.0 [facility] ([facility]) Y/N query for Sepsis Lactate Rule: Y ID Date Data Source [id number] 04/28/2021 01:24:00 PM EDT [facility] ([facility]) Name Value Range Interpretation Code Description Data Steffi rce(s) Supporting Document(s) Venous Partial Pressure Co2 33.9 mmHg 38.0-50.0 [facility] ([facility]) Venous PH 7.424 units 7.330-7.430 [facility] ([facility]) Venous Hco3 21.7 meq/L 23.0-27.0 [facility] ([facility]) Venous Total Co2 22.7 meq/L 24.0-28.0 [facility] ([facility]) Venous Partial Pressure O2 65.4 mmHg 30.0-50.0 [facility] ([facility]) Venous Base Excess -2.0 [facility] ([facility]) Venous Standard Hco3 22.7 meq/L [facility] ( [facility]) Venous O2 Saturation 92.9 % 60.0-80.0 [facility] ([facility]) ID Date Data Source [id number] 04/05/2021 11:10:00 AM EDT [facility] ([facility]) Name Value Range Interpretation Code Description Data Steffi rce(s) Supporting Document(s) Coronavirus 2019 Nasopharygeal Laboratory test result [facility] ([facility]) NOTE: The COVID-19 assay is under Emerge n[employer] Use Authorization (EUA) by the U.S. Food and Drug Administration. [facility] is designated as a high complexity laboratory by the Clinical Laboratory Improvement Amendments of 1988(CLIA) and is qualified to perform this test. ASSAY INFORMATION: Real Time RT-PCR or TMA. Both RT-PCR and TMA are molecular testing modalities and are recommended by the CDC for passenger travel. Not Detected ID Date Data Source [id number] 04/05/2021 11:10:00 AM EDT [facility] Name Value Range Interpretation Code Description Data Steffi rce(s) Supporting Document(s) SARS-CoV-2 (COVID-19) RNA [Presence] in Respiratory specimen by MICHELLE with probe detection Not Detected [facility] This lab was ordered by [facility] and reported by [employer]. ID Date Data Source [id number] 03/13/2021 03:25:00 PM EDT [facility] ([facility], ) Name Value Range Interpretation Code Description Data Steffi rce(s) Supporting Document(s) Glucose, Fasting 96 mg/dL 70-100 Normal (applies to non-numeric results) [facility] ([facility], ) Blood Urea Nitrogen 26 mg/dL 7-18 Above high normal [facility] ([facility], ) Creatinine For GFR 0.62 mg/dL 0.70-1.30 Below low normal [facility] ([facility], ) Glomerular Filtration Rate Laboratory test result Normal (applies to non- numeric results) [facility] ([facility], ) <content>Units are mL/min/1.73 m2</content>
<content></content>
<content>Chronic Kidney Disease Staging per NKF:</content>
<content></content>
<content>Stage I & II GFR >=60 Normal to Mildly Decreased</content>
<content>Stage III GFR 30- 59 Moderately Decreased</content>
<content>Stage IV GFR 15-29 Severely Decreased</content>
<content>Stage V GFR <15 Very Little GFR Left</content>
<content>ESRD GFR <15 on FACILITY ADMINISTRATOR</content>
<content></content> Sodium Level 141 meq/L 136-145 Normal (applies to non-numeric res ults) [facility] ([facility], ) Potassium Serum 4.7 meq/L 3.5-5.1 Normal (applies to non-numeric results) [facility] ([facility]) Chloride Level 108 meq/L 98-107 Above high normal [facility] ([facility]) Anion Gap 4 meq/L 8-16 Below low normal [facility] ( [facility]) Carbon Dioxide Level 29 meq/L 21-32 Normal (applies to non-num tavo results) [facility] ([facility]) Calcium Level 9.2 mg/dL 8.8-10.2 Normal (applies to non-numeric re sults) [facility] ([facility]) Alt/SGPT 37 U/L 12-78 Normal (applies to non-numeric resul ts) [facility] ([facility]) Ast/Sgot 28 U/L 7-37 Normal (applies to non-numeric resul ts) [facility]) Alkaline Phosphatase 80 U/L 45-117 Normal (applies to non-num tavo results) [facility]) Bilirubin,Total 0.4 mg/dL 0.2-1.0 Normal (applies to non-numeric results) [facility] ([facility], ) Albumin 3.5 GM/DL 3.2-5.2 Normal (applies to non-numeric resul ts) [facility] ([facility]) Albumin/Globulin Ratio 1.1 Normal (applies to non-n umeric results) [facility]) 03/15/21 (March 15) 09:17 AM KIEL SHERWOOD No significant abnormalities. Total Protein 6.7 GM/DL 6.4-8.2 Normal (applies to non-numeric re sults) [facility]) ID Date Data Source [id number] 03/13/2021 03:25:00 PM EDT [facility] ([facility]) Name Value Range Interpretation Code Description Data Steffi rce(s) Supporting Document(s) Iron (Fe) 54 ug/dL 65-175 Below low normal [facility] ( [facility]) Total Iron Binding Capacity 285 ug/dL 250-450 Norm al (applies to non-numeric results) [facility] ([facility]) Percent Saturation 18.9 % 19.7-50.0 Below low normal [facility] 03/15/21 (March 15) 09:17 AM KIEL C HARLEBOIS Improvement noted. ID Date Data Source [id number] 03/13/2021 03:25:00 PM EDT [facility] ([facility]) Name Value Range Interpretation Code Description Data Steffi rce(s) Supporting Document(s) Hemoglobin 12.6 g/dL 13.5-17.5 Below low normal [facility] ( [facility]) White Blood Count 13.3 10 4.0-10.0 Above high normal [facility] ([facility]) Red Blood Count 5.47 10 4.30-6.10 Normal (applies to non-numeric results) [facility] ([facility]) Hematocrit 42.3 % 42.0-52.0 Normal (applies to non-numeric resul ts) [facility] ([facility]) Mean Corpuscular Volume 77.3 fl 80.0-96.0 Below low normal [facility] Mean Corpuscular Hemoglobin 23.0 pg 27.0-33.0 Below low normal [facility] ([facility]) Mean Corpuscular HGB Conc 29.8 g/dL 32.0-36.5 Below low normal [facility] ([facility]) Red Cell Distribution Width 19.2 % 11.5-14.5 Above high normal [facility] ([facility]) Nucleated Red Blood Cell % 0.0 % 0-0 Normal (applies to n on-numeric results) [facility] ([facility]) 03/15/21 (March 15) 09:17 AM KIEL C HARLEBOIS Anemia has improved. WBC elevated. Informed patient and letter sent to PCP. Platelet Count, Automated 249 10 150-450 Normal (applies to non-numeric results) [facility] ([facility], ) ID Date Data Source [id number] 01/12/2021 01:01:00 PM EST [facility] ([facility]) Name Value Range Interpretation Code Description Data Steffi rce(s) Supporting Document(s) Iron (Fe) 92 ug/dL 65-175 [facility] ([facility]) Total Iron Binding Capacity 318 ug/dL 250-450 [place] [facility] ([facility]) Percent Saturation 28.9 % 19.7-50.0 [facility] ([facility]) ID Date Data Source [id number] 01/12/2021 01:01:00 PM EST [facility] ([facility]) Name Value Range Interpretation Code Description Data Steffi rce(s) Supporting Document(s) Leukocytes [#/volume] in Blood by Automated count 11.9 x10*3/UL 4.1-1 0.9 [facility] ([facility]) NOTE: cbc verified Erythrocytes [#/volume] in Blood by Automated count 5.32 x10*6/UL 4.2 0-6.30 [facility] ([facility]) Hematocrit [Volume Fraction] of Blood by Automated count 38.2 % 3 7.0-51.0 [facility]) Hemoglobin [Mass/volume] in Blood 12.4 g/dL 12.0-18.0 [facility] ([facility]) MCV 71.7 fL 80.0-97.0 [facility] ([facility]) MCH 23.4 pg 26.0-32.0 [facility] ([facility]) Platelets [#/volume] in Blood by Automated count 197 x10*3/UL 140-440 [facility] ([facility]) MCHC 32.6 g/dL 31.0-38.0 [facility] ([facility]) Erythrocyte distribution width [Ratio] by Automated count 16.5 % 11.6-13.7 [facility] ([facility]) Lymph % 4.4 % 10.0-58.5 [facility] ([facility]) MPV 7.8 FL 7.8-11.0 [facility] ([facility]) Neut % 89.9 % 37.0-92.0 [facility] ([facility]) Mid % 5.7 % 1.7-9.3 [facility] ([facility]) Mid # 0.7 x10*3/UL 0.1-0.6 [facility] ([facility]) Lymph # 0.5 x10*3/UL 0.6-4.1 [facility] ([facility]) Neut # 10.7 x10*3/UL 2.0-7.8 [facility] ([facility]) ID Date Data Source [id number] 12/28/2020 11:26:00 AM EST [facility] ([facility]) Name Value Range Interpretation Code Description Data Steffi rce(s) Supporting Document(s) Hemoglobin.gastrointestinal [Presence] in Stool by Imm unologic method Laboratory test result Abnormal (applies to non-numeric results) [facility] ([facility]) ID Date Data Source [id number] 12/25/2020 01:30:00 PM EST [facility] ([facility]) Name Value Range Interpretation Code Description Data Steffi rce(s) Supporting Document(s) Total Iron Binding Capacity 350 ug/dL 250-450 [place] [facility] ([facility]) Iron (Fe) 40 ug/dL 65-175 [facility] ([facility]) Percent Saturation 11.4 % 19.7-50.0 [facility] ([facility]) ID Date Data Source [id number] 12/25/2020 01:29:00 PM EST [facility] ([facility]) Name Value Range Interpretation Code Description Data Steffi rce(s) Supporting Document(s) Leukocytes [#/volume] in Blood by Automated count 10.8 x10*3/UL 4.1-1 0.9 [facility] ([facility]) Hematocrit [Volume Fraction] of Blood by Automated count 35.1 % 3 7.0-51.0 [facility]) Erythrocytes [#/volume] in Blood by Automated count 4.97 x10*6/UL 4.2 0-6.30 [facility] ([facility]) Hemoglobin [Mass/volume] in Blood 11.7 g/dL 12.0-18.0 [facility] ([facility]) NOTE: RESULT VERIFIED. MCH 23.5 pg 26.0-32.0 [facility] ([facility]) MCV 70.7 fL 80.0-97.0 [facility] ([facility]) MCHC 33.3 g/dL 31.0-38.0 [facility] ([facility]) Platelets [#/volume] in Blood by Automated count 219 x10*3/UL 140-440 [facility] ([facility]) MPV 8.0 FL 7.8-11.0 [facility] ([facility]) Erythrocyte distribution width [Ratio] by Automated count 14.8 % 11.6-13.7 [facility] ([facility]) Lymph % 3.6 % 10.0-58.5 [facility] ([facility]) Mid % 4.9 % 1.7-9.3 [facility] ([facility]) Neut % 91.5 % 37.0-92.0 [facility] ([facility]) Lymph # 0.3 x10*3/UL 0.6-4.1 [facility] Mid # 0.6 x10*3/UL 0.1-0.6 [facility] ([facility]) Neut # 9.9 x10*3/UL 2.0-7.8 [facility] ([facility]) ID Date Data Source [id number] 11/20/2020 08:42:00 AM EST [facility] ([facility]) Name Value Range Interpretation Code Description Data Steffi rce(s) Supporting Document(s) Prostate specific Ag [Mass/volume] in Serum or Plasma Laboratory test result [facility] ([facility]) This assay was performed on the [employer] Dimension EXL using the B- Galactosidase/CPRG methodology and should not be compared interchangeably with other methods. The PSA should not be used alone as a screening test for the presence or absence of malignant disease. ID Date Data Source [id number] 11/20/2020 08:41:00 AM EST [facility] ([facility]) Name Value Range Interpretation Code Description Data Steffi rce(s) Supporting Document(s) Cholesterol [Mass/volume] in Serum or Plasma 175 mg/dL 131-200 [facility] ([facility]) Cholesterol in HDL [Mass/volume] in Serum or Plasma 103 mg/dL 35-60 [facility] ([facility]) Triglyceride [Mass/volume] in Serum or Plasma 98 mg/dL 30-150 [facility] ([facility]) Cholesterol in LDL [Mass/volume] in Serum or Plasma by calcu lation 52 CALC 50-159 [facility] ([facility]) ID Date Data Source [id number] 11/20/2020 08:41:00 AM EST [facility] ([facility]) Name Value Range Interpretation Code Description Data Steffi rce(s) Supporting Document(s) Glucose [Mass/volume] in Serum or Plasma 80 mg/dL 74-99 [facility] ([facility]) 100-125 mg/dL PRE-DIABETES/FASTING >126 mg/dL DIABETES/FASTING Urea nitrogen [Mass/volume] in Serum or Plasma 20 mg/dL 7-18 [facility] ([facility]) Creatinine 0.7 mg/dL 0.6-1.3 [facility] Potassium [Moles/volume] in Serum or Plasma 3.9 meq/L 3.5-5.1 [facility] ([facility]) Sodium [Moles/volume] in Serum or Plasma 143 meq/L 136-145 [facility] ([facility]) Carbon dioxide, total [Moles/volume] in Serum or Plasma 29 meq/L 21 -32 [facility] ([facility]) Chloride [Moles/volume] in Serum or Plasma 106 meq/L 98-107 [facility] ([facility]) Calcium [Mass/volume] in Serum or Plasma 8.4 mg/dL 8.5-10.1 [facility] ([facility]) NOTE: CALCIUM,ALB,T.PROTEIN VERIFIED Alkaline phosphatase isoenzyme [Units/volume] in Serum or Pl asma 73 mg/dL 46-116 [facility] ([facility]) Total Bilirubin 0.4 mg/dL 0.2-1.0 [facility] ([facility]) Aspartate aminotransferase [Enzymatic activity/volume] in Serum or Plasma 27 U/L 15-37 [facility] ([facility] ) Alanine aminotransferase [Enzymatic activity/volume] in Seru m or Plasma 38 U/L 12-78 [facility] ([facility]) Proteinase 3 Ab [Units/volume] in Serum 6.3 g/dL 6.4-8.2 [facility] ([facility]) Albumin [Mass/volume] in Serum or Plasma 3.4 g/dL 3.4-5.0 [facility] A/G Ratio 1.17 CALC 1.00-1.90 [facility] Glomerular filtration rate/1.73 sq M pre dicted among non-blacks [Volume Rate/Area] in Serum or Plasma by Creatinine-based formula (MDRD) Laboratory test result [facility] ([facility] Glomerular filtration rate/1.73 sq M pre dicted among blacks [Volume Rate/Area] in Serum or Plasma by Creatinine-based formula (MDRD) Laboratory test result [facility] ([facility]) <content>CHRONIC KIDNEY DISEASE STAGING PER NKF</content>
<content></content>
<content>STAGE I & II GFR >= 60 NORMAL TO MILDLY DECREASED</content>
<content>STAGE III GFR 30-59 MODERATELY DECREASED</content>
<content>STAGE IV GFR 15-29 SEVERELY DECREASED</content>
<content>STAGE V GFR <15 VERY LITTLE GFR LEFT</content>
<content>ESRD GFR <15 ON FACILITY ADMINISTRATOR</content>
<content></content> ID Date Data Source [id number] 11/20/2020 08:41:00 AM EST [facility] ([facility]) Name Value Range Interpretation Code Description Data Steffi rce(s) Supporting Document(s) Leukocytes [#/volume] in Blood by Automated count 8.0 x10*3/UL 4.1-10 .9 [facility] ([facility]) NOTE: CBC VERIFIED Erythrocytes [#/volume] in Blood by Automated count 4.88 x10*6/UL 4.2 0-6.30 [facility] ([facility]) Hematocrit [Volume Fraction] of Blood by Automated count 35.0 % 3 7.0-51.0 [facility] ([facility]) Hemoglobin [Mass/volume] in Blood 11.7 g/dL 12.0-18.0 [facility] ([facility]) MCV 71.7 fL 80.0-97.0 [facility]) MCHC 33.6 g/dL 31.0-38.0 [facility]) MCH 24.1 pg 26.0-32.0 [facility]) Platelets [#/volume] in Blood by Automated count 178 x10*3/UL 140-440 [facility] ([facility]) Erythrocyte distribution width [Ratio] by Automated count 14.0 % 11.6-13.7 [facility] ([facility]) MPV 7.6 FL 7.8-11.0 [facility]) Lymph % 13.9 % 10.0-58.5 [facility]) Neut % 81.6 % 37.0-92.0 [facility]) Mid % 4.5 % 1.7-9.3 [facility]) Lymph # 1.1 x10*3/UL 0.6-4.1 [facility] ([facility]) Mid # 0.3 x10*3/UL 0.1-0.6 [facility] ([facility]) Neut # 6.6 x10*3/UL 2.0-7.8 [facility] ([facility]) ID Date Data Source [id number] 11/13/2020 03:58:36 PM [facility] Name Value Range Interpretation Code Description Data Steffi rce(s) Supporting Document(s) Progress Note [facility] KZNRVe2bFzMRCdWs71/JGCcpKGVww4ReACveWAv2TVedDLIzN9AjIIC6yA7wCIK5KZxDEsRzNqMtQRS4 lbm [file] S7PPRpNpPyOCA4ZYUpZsVlGOViMEH+JE7iIWm+Vl7Mp2LwiuH0axHcEKztAEyaWn8NKEHDH0GYLo== ID Date Data Source [id number] 10/31/2020 12:00:00 AM EST [facility] Name Value Range Interpretation Code Description Data Steffi rce(s) Supporting Document(s) SARS coronavirus 2 RNA [facility] This lab was ordered by [email or web address] and rep orted by [email or web address]. ID Date Data Source [id number] 10/16/2020 02:54:47 PM EST [facility] Name Value Range Interpretation Code Description Data Steffi rce(s) Supporting Document(s) Progress Note [facility] ZZITBp6eTnIEAvFo56/ACYnuXIHte3FdAJkvDEc2OWjzORDuX3SbBRV8eZ1yVWQ4XNtTHiHlVoIkUmO2 lbm NqVbrPKdJkMZPzVeuIIyJfMVozZfbdwRFdPA2ZpML0BLEtA90bAHKeQBKgY8TzLNSaHeo+Qt3CCJJjfS GuRD2FNrjR6U89bqq8Gc+/CC7HrpHNryaGHg92GYHLgFbX3ENsL9pJkq/W8msDqgVYvHUyeF/tAbP5nm VMNr+Ml2LfWP1Q4WVX4+ZxWtoaEhLHl02Kr3JgCKck f1e/BpESlxPxxz+ZlacaUu8rZ5gmCoR0pRDTV6QpGvvvzUirZyyKUpTs7vbri6rYgd/LHjF82gg37YPo PMmBUF3wrnmGPiSOUfsifMVSJEfZpV3hKhZODmSBxNM0l7gEJNg8CsE+FO9+7cb0mZ7lFeqNK1hkqCog s1d31gYzeMlAk7JnfpYqJWRQK572y6rRB6/Bk26EMO 9gg7OHPz+fL7TUoUO+z9YytAZETPGQRdhqfpWbSSr0TWYFNygASeaC2pmhlwVRmsyOnKtIm1K5bnl/w6 9xRhe1poApBQKf0KjlUecw3vAKH4HVcE+RbAawlBJ8tbiyx6wZ+NMqc8KFFXjRWReYRkvU57DwiO1Dfg 96u48UrDQxg3DMzvmWYFY6GthApUaxTRCkhoK+Gn+2 p+gKdaXow+IncYd3gjeoR2FLpSRb8/TFuFZAmrZ01h0MrUR59puzCWW0JOcpmAeY5cdsMB2p2MaQ+kpV nzEohIxOR6R/F0+IOlbcYkmG7Z/GTZFZxhuBTHvnHQBgxRmwRqssYGvPg4MCwjeKx/mNailX5lUOPnqk ZQ4Ya6SZXtzovkdKcphtPnbeJs6Hxlj1ogabjpwslU [file] Jose Alfredo+cxn4wPXWDaJo5zZMBD/eqT9JmQ4w+ji8NEGAetglulBFRAW3vg1N657Q9kd+a+ApnSE0og6fp7/E [file] ZIVbFwVoMWDoTEKpJQOgIAGzTR6hXGLEUe0+RSvydWDndFusWPMBClB2CsS0WSoyVVGSGi3C ID Date Data Source [id number] 09/01/2020 02:00:00 PM EDT [facility] ([facility] ) Name Value Range Interpretation Code Description Data Steffi rce(s) Supporting Document(s) Gram Stain Laboratory test result Normal (applies to non-n umeric results) [facility] ([facility]) QUALITY: GOOD MODERATE WBCS FEW EPITHELIAL CELLS MODERATE GRAM POSITIVE COCCI IN PAIRS, CHAINS AND CLUSTERS FEW GRAM NEGATIVE RODS FEW GRAM POSITIVE RODS Sputum Culture Laboratory test result Normal (applies to non-numeric results) [facility] ([facility]) <content>FULL REPORT IN LAB NOTES [...] smoker completed Patient is a former smoker [facility] ([facility], ) Alcohol intake 10/16/2020 12:00:00 AM EST Current drinker of al cohol (finding) completed Current drinker of alcohol (finding) [facility] Vital Signs ID Date Data Source UNK Name Value Range Interpretation Code Description Data Source(s) Systolic blood pressure 100 mm[Hg] 100 mm[Hg] [facility] Diastolic blood pressure 58 mm[Hg] 58 mm[Hg] [facility] ([facility], ) Heart rate 98 /min 98 /min [facility] ([facility], ) Oxygen saturation in Arterial blood by Pulse oximetry 882 % 882 % [facility] ([facility], ) Respiratory rate 20 /min 20 /min [facility] ( [facility], ) Body height 72 [in_i] 72 [in_i] [facility] ([facility], ) 6'0" Body weight 131.50 [lb_av] 131.50 [lb_av] [facility] ([facility]) Body mass index (BMI) [Ratio] 17.8 kg/m2 17.8 k g/m2 [facility] ([facility]) [facility] body weight 178 [lb_av] 178 [lb_av] [facility] Body weight 59.648 kg 59.648 kg [facility] ([facility]) Body surface area Derived from formula 1.78 m2 1.78 m2 [facility] ([facility]) Heart rate 91 /min 91 /min [facility] ([facility]) Oxygen saturation in Arterial blood by Pulse oximetry 892 % 892 % [facility] ([facility]) Body height 72 [in_i] 72 [in_i] [facility] ([facility]) 6'0" [facility] body weight 178 [lb_av] 178 [lb_av] [facility] Systolic blood pressure 108 mm[Hg] 108 mm[Hg] [facility] ([facility]) Diastolic blood pressure 64 mm[Hg] 64 mm[Hg] [facility] ([facility]) Body weight 134.00 [lb_av] 134.00 [lb_av] [facility] ([facility]) Systolic blood pressure 130 mm[Hg] 130 mm[Hg] [facility] ([facility]) Diastolic blood pressure 76 mm[Hg] 76 mm[Hg] [facility] ([facility]) Heart rate 84 /min 84 /min [facility] ([facility]) Body height 71 [in_i] 71 [in_i] [facility] ([facility]) 5'11" Oxygen saturation in Arterial blood by Pulse oximetry 94 % 94 % [facility] ([facility]) 2 liters Body mass index (BMI) [Ratio] 18.7 kg/m2 18.7 k g/m2 [facility] ([facility]) Body mass index (BMI) [Ratio] 17.2 kg/m2 17.2 k g/m2 [facility] ([facility]) [facility] body weight 178 [lb_av] 178 [lb_av] [facility] ([facility]) Body weight 57.607 kg 57.607 kg [facility] ([facility]) Systolic blood pressure 86 mm[Hg] 86 mm[Hg] [facility] ([facility]) Diastolic blood pressure 58 mm[Hg] 58 mm[Hg] [facility] ([facility]) Heart rate 74 /min 74 /min [facility] ([facility]) Oxygen saturation in Arterial blood by Pulse oximetry 942 % 942 % [facility] ([facility]) Body height 72 [in_i] 72 [in_i] [facility] ([facility]) 6'0" Body weight 127.00 [lb_av] 127.00 [lb_av] [facility] ([facility]) Body surface area Derived from formula 1.76 m2 1.76 m2 [facility] ([facility]) Systolic blood pressure 86 mm[Hg] 86 mm[Hg] [facility] ([facility]) Diastolic blood pressure 58 mm[Hg] 58 mm[Hg] [facility] ([facility]) Heart rate 96 /min 96 /min [facility] ([facility]) Body height 71 [in_i] 71 [in_i] [facility] ([facility]) 5'11" Body weight 135.00 [lb_av] 135.00 [lb_av] [facility]) Oxygen saturation in Arterial blood by Pulse oximetry 89 % 89 % [facility] ([facility]) 2 liters Body mass index (BMI) [Ratio] 18.8 kg/m2 18.8 k g/m2 [facility] ([facility]) Oxygen saturation in Arterial blood by Pulse oximetry 88 % 88 % [facility] ([facility]) Systolic blood pressure 103 mm[Hg] 103 mm[Hg] [facility] ([facility], [facility]) Diastolic blood pressure 56 mm[Hg] 56 mm[Hg] [facility] ([facility], [facility]) Heart rate 107 /min 107 /min [facility] ([facility], [facility]) Respiratory rate 20 /min 20 /min [facility] ( [facility], [facility]) Oxygen saturation in Arterial blood by Pulse oximetry 79 % 79 % [facility] ([facility], [facility]) Body temperature 97.0 [degF] 97.0 [degF] [facility] ([facility], [facility]) Systolic blood pressure 100 mm[Hg] 100 mm[Hg] [facility] ([facility]) Diastolic blood pressure 58 mm[Hg] 58 mm[Hg] [facility]) Heart rate 82 /min 82 /min [facility] ([facility]) Body height 71 [in_i] 71 [in_i] [facility] ([facility]) 5'11" Body weight 143.00 [lb_av] 143.00 [lb_av] [facility] ([facility]) Oxygen saturation in Arterial blood by Pulse oximetry 94 % 94 % [facility] ([facility]) 2 liters Body mass index (BMI) [Ratio] 19.9 kg/m2 19.9 k g/m2 [facility] ([facility]) Oxygen saturation in Arterial blood by Pulse oximetry 932 % 932 % [facility] ([facility], ) Body height 72 [in_i] 72 [in_i] [facility] ([facility]) 6'0" [facility] body weight 178 [lb_av] 178 [lb_av] [facility] ([facility], ) Systolic blood pressure 100 mm[Hg] 100 mm[Hg] [facility], ) Diastolic blood pressure 60 mm[Hg] 60 mm[Hg] [facility] ([facility]) Heart rate 86 /min 86 /min [facility] ([facility], ) Oxygen saturation in Arterial blood by Pulse oximetry 932 % 932 % [facility] ([facility], ) Body height 72 [in_i] 72 [in_i] [facility] ([facility]) 6'0" [facility] body weight 178 [lb_av] 178 [lb_av] [facility] ([facility], ) Systolic blood pressure 100 mm[Hg] 100 mm[Hg] [facility]) Diastolic blood pressure 56 mm[Hg] 56 mm[Hg] [facility] ([facility]) Heart rate 84 /min 84 /min [facility] ([facility]) Body height 71 [in_i] 71 [in_i] [facility] ([facility]) 5'11" Body weight 148.00 [lb_av] 148.00 [lb_av] [facility] ([facility]) Body mass index (BMI) [Ratio] 20.6 kg/m2 20.6 k g/m2 [facility] ([facility]) Diastolic blood pressure 60 mm[Hg] 60 mm[Hg] [facility] ([facility]) Systolic blood pressure 110 mm[Hg] 110 mm[Hg] [facility] ([facility]) Body mass index (BMI) [Ratio] 24.1 kg/m2 24.1 k g/m2 [facility] ([facility]) Body weight 178.00 [lb_av] 178.00 [lb_av] [facility] ([facility]) Body height 72 [in_i] 72 [in_i] [facility] ([facility]) 6'0" [facility] body weight 178 [lb_av] 178 [lb_av] [facility] ([facility]) Body weight 80.741 kg 80.741 kg [facility] ([facility]) Body surface area Derived from formula 2.03 m2 2.03 m2 [facility] ([facility]) Body weight 178.00 [lb_av] 178.00 [lb_av] [facility] ([facility]) Body mass index (BMI) [Ratio] 24.1 kg/m2 24.1 k g/m2 [facility] ([facility]) Body height 72 [in_i] 72 [in_i] [facility] ([facility]) 6'0" [facility] body weight 178 [lb_av] 178 [lb_av] [facility] ([facility]) Body weight 80.741 kg 80.741 kg [facility] ([facility]) Body surface area Derived from formula 2.03 m2 2.03 m2 [facility] ([facility]) Heart rate 94 /min 94 /min [facility] ([facility]) Oxygen saturation in Arterial blood by Pulse oximetry 872 % 872 % [facility] ([facility]) 92 2L Body height 72 [in_i] 72 [in_i] [facility] ([facility]) 6'0" Body weight 181.00 [lb_av] 181.00 [lb_av] [facility] ([facility]) Diastolic blood pressure 80 mm[Hg] 80 mm[Hg] [facility] ([facility]) Body mass index (BMI) [Ratio] 24.5 kg/m2 24.5 k g/m2 [facility] ([facility]) Systolic blood pressure 130 mm[Hg] 130 mm[Hg] [facility] ([facility]) [facility] body weight 178 [lb_av] 178 [lb_av] [facility] ([facility]) Body weight 82.102 kg 82.102 kg [facility] ([facility]) Body surface area Derived from formula 2.04 m2 2.04 m2 [facility] ([facility]) Heart rate 72 /min 72 /min [facility] ([facility]) Systolic blood pressure 106 mm[Hg] 106 mm[Hg] [facility] ([facility]) Diastolic blood pressure 60 mm[Hg] 60 mm[Hg] [facility] ([facility]) Oxygen saturation in Arterial blood by Pulse oximetry 92 % 92 % [facility] ([facility]) With O2 Body mass index (BMI) [Ratio] 25.9 kg/m2 25.9 k g/m2 [facility] ([facility]) Body height 71 [in_i] 71 [in_i] [facility]) 5'11" Body weight 185.38 [lb_av] 185.38 [lb_av] [facility] ([facility]) Body height 72 [in_i] 72 [in_i] [facility] ([facility]) 6'0" [facility] body weight 178 [lb_av] 178 [lb_av] [facility] ([facility]) Systolic blood pressure 120 mm[Hg] 120 mm[Hg] [facility] ([facility]) Diastolic blood pressure 76 mm[Hg] 76 mm[Hg] [facility] ([facility]) Heart rate 75 /min 75 /min [facility] ([facility]) Oxygen saturation in Arterial blood by Pulse oximetry 84 % 84 % [facility] ([facility]) 93 2L Heart rate 84 /min 84 /min [facility] ([facility]) Body height 72 [in_i] 72 [in_i] [facility] ([facility]) 6'0" Body weight 183.00 [lb_av] 183.00 [lb_av] [facility] Body mass index (BMI) [Ratio] 24.8 kg/m2 24.8 k g/m2 [facility] ([facility]) [facility] body weight 178 [lb_av] 178 [lb_av] [facility] Systolic blood pressure 130 mm[Hg] 130 mm[Hg] [facility] ([facility]) Diastolic blood pressure 70 mm[Hg] 70 mm[Hg] [facility] ([facility]) Oxygen saturation in Arterial blood by Pulse oximetry 94 % 94 % [facility] ([facility]) Room Air Body weight 83.009 kg 83.009 kg [facility] ([facility]) Body surface area Derived from formula 2.05 m2 2.05 m2 [facility] ([facility]) Heart rate 84 /min 84 /min [facility] ([facility]) Oxygen saturation in Arterial blood by Pulse oximetry 95 % 95 % [facility] RM Air Diastolic blood pressure 70 mm[Hg] 70 mm[Hg] [facility] ([facility]) Body height 71 [in_i] 71 [in_i] [facility] ([facility]) 5'11" Body mass index (BMI) [Ratio] 25.7 kg/m2 25.7 k g/m2 [facility] ([facility]) Body weight 184.00 [lb_av] 184.00 [lb_av] [facility] ([facility]) Systolic blood pressure 130 mm[Hg] 130 mm[Hg] Michele [facility] ([facility]) ID Date Data Source [id number] 10/19/2020 03:30:21 PM [facility] Name Value Range Interpretation Code Description Data Source(s) WEIGHT RECORDED 183 lb 183 lb [facility] ID Date Data Source [id number] 11/13/2020 03:58:36 PM [facility] Name Value Range Interpretation Code Description Data Source(s) WEIGHT RECORDED 171 lb 171 lb [facility] Body height Measured 72.01 in 72.01 in [facility] Patient Treatment Plan of Care Planned Activity Planned Date Details Description Data Source (s) Sulfamethoxazole 800 MG / Trimethoprim 160 MG Oral Tab let 10/16/2020 01:30:00 PM [facility] ospital lidocaine (XYLOCAINE) 2 % urojet 20 mL 10/16/2020 01:30:00 PM [facility] 120 ACTUAT Albuterol 0.1 MG/ACTUAT / Ipr atropium [place] 0.02 MG/ACTUAT Metered Dose Inhaler [Combivent] 10/12/2020 12:00:00 AM [facility] 24 HR mirabegron 50 MG Extended Release Oral Tablet [M yrbetriq] 09/03/2020 12:00:00 AM [facility] ospital 7 ACTUAT umeclidinium 0.0625 MG/ACTUAT Dry Powder Inha ler [Incruse] 09/02/2020 12:00:00 AM [facility] ospital Carboxymethylcellulose Sodium 5 MG/ML Ophthalmic Solut ion 08/19/2020 12:00:00 AM [facility] ospital Nystatin [id number] UNT/ML Oral Suspension 07/24/2020 12:00:00 AM [facility] solifenacin succinate 10 MG Oral Tablet 07/22/2020 12:00:00 AM [facility] Hydrochlorothiazide 12.5 MG Oral Capsule 06/23/2020 12:00:00 AM [facility] solifenacin succinate 10 MG Oral Tablet 11/16/2019 12:00:00 AM EST [facility] Polyvinyl Alcohol 0.014 ML/ML Ophthalmic Solution [facility] MAGNESIUM PO [facility] Potassium 99 MG TABS [facility] Probiotic Product ([employer] PROBIOTIC) CHEW [facility] Liberal-3 Fatty Acids (FISH OIL) 1200 MG [facility]
--- NOTE | 2021-09-10 13:52 | REP ---
INDICATION: DYSPNEA/COUGH. COMPARISON: 07/27/2021. TECHNIQUE: Single portable AP view of the chest was performed. FINDINGS: There is mild improvement of the pleural and parenchymal opacity in the left lung base. There is mild increase in the pleural and parenchymal opacity in the right lung base. The heart and mediastinum appear unchanged. 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 IMPRESSION: Mild improvement of pleural and parenchymal opacity in the left lung base, with mild increase in the right lung base. <Electronically signed by Karlos Bay > 09/10/21 [id number]
[2021-09-10 14:07] LABS: ABG BASE EXCESS 2.5 (-2.0-2.0); ABG HCO3 25.3 MEQ/L (22.0-26.0); ABG O2 SATURATION 99.5 % (95.0-99.0); ABG PARTIAL PRESSURE CO2 32.9 mmHg (35.0-45.0); ABG PARTIAL PRESSURE O2 232.2 mmHg (75.0-100.0); ABG STANDARD HCO3 26.7 MEQ/L (22.0-26.0); ABG TOTAL CO2 26.3 MEQ/L (23.0-31.0); ABG pH (ARTERIAL) 7.503 UNITS (7.350-7.450)
[2021-09-10 15:19] LABS: ALBUMIN 2.5 GM/DL (3.2-5.2); ALT/SGPT 37 U/L (12-78); BILIRUBIN,DIRECT 0.2 MG/DL (0.0-0.2); BILIRUBIN,TOTAL 0.6 MG/DL (0.2-1.0); BLOOD UREA NITROGEN 18 MG/DL (7-18); CALCIUM LEVEL 9.2 MG/DL (8.8-10.2); CARBON DIOXIDE LEVEL 27 MEQ/L (21-32); CHLORIDE LEVEL 100 MEQ/L (98-107); CK-MB VALUE MASS < 1.0 NG/ML (<3.6); CPK CREATINE PHOSPHOKINASE 54 U/L (39-308); CREATININE FOR GFR 0.54 MG/DL (0.70-1.30); GLOMERULAR FILTRATION RATE > 60.0 (>42); GLUCOSE, FASTING 98 MG/DL (70-100); MB/CK RELATIVE INDEX 1.85 (< OR =4); NT-PRO BNP 564 PG/ML (<450); POTASSIUM SERUM 4.8 MEQ/L (3.5-5.1); SODIUM LEVEL 136 MEQ/L (136-145); TOTAL PROTEIN 7.1 GM/DL (6.4-8.2); TROPONIN I < 0.02 NG/ML (< 0.10)
[2021-09-10] MEDS ORDERED: dexameTHASONE 20MG/5ML VIAL (J1100 PER 1MG) IV ONE (15:40)
[2021-09-10 16:05] LABS: BASO # 0.1 10^3/uL (0.0-0.2); BASO % 0.4 % (0.0-1.0); HEMATOCRIT 38.9 % (42.0-52.0); HEMOGLOBIN 11.8 g/dl (13.5-17.5); LYMPH # 0.5 10^3/uL (1.5-5.0); LYMPH % 3.7 % (24.0-44.0); MEAN CORPUSCULAR HEMOGLOBIN 20.6 pg (27.0-33.0); MEAN CORPUSCULAR HGB CONC 30.3 g/dl (32.0-36.5); MONO # 1.1 10^3/uL (0.0-0.8); MONO % 7.8 % (2.0-8.0); NEUTROPHILS # 11.9 10^3/uL (1.5-8.5); NEUTROPHILS % 87.5 % (36.0-66.0); PLATELET COUNT, AUTOMATED 283 10^3/uL (150-450); RED BLOOD COUNT 5.72 10^6/uL (4.30-6.10); WHITE BLOOD COUNT 13.6 10^3/uL (4.0-10.0)
[2021-09-10] MEDS ORDERED: cefTRIAXone SOD 1 GM in D5W MINI-BAG PLUS 50 ML IV ONE (17:00)
[2021-09-10] MEDS ORDERED: PRED10TA2 PO (18:38)
[2021-09-10 19:15] VITALS: BP 118/65
--- NOTE | 2021-09-11 08:08 | ECGEPIP ---
[facility] - ED Test Date: 2021-09-10 Pat Name: FREDDY MARIN Department: Room: - Gender: Male Inspector General: zoraida : 1945 Requested By: Bryce Monique Order Number: [id number] Reading MD: Bryce Zuniga Measurements Intervals [place] Rate: 78 P: 63 ME: 158 QRS: 8 QRSD: 86 T: 80 QT: 360 QTc: 410 Interpretive Statements Normal sinus rhythm with sinus arrhythmia SIMILAR TO 07/27/21 Electronically Signed on 09-11-2021 8:07:45 EDT by Bryce Zuniga
--- NOTE | 2021-09-11 17:16 | ED PDOC ---
Post-Departure Follow-Up radiology report faxed to Shadia Park MD Sep 11, 2021 17:16
== END 2021-09-10 19:48 | disposition home or self-care (01) ==
LOC: M ED 11:43
DX: J47.9 Bronchiectasis, uncomplicated (principal); I10 Essential (primary) hypertension; E78.5 Hyperlipidemia, unspecified; G47.33 Obstructive sleep apnea (adult) (pediatric); Z85.46 Personal history of malignant neoplasm of prostate; Z87.891 Personal history of nicotine dependence; Z79.899 Other long term (current) drug therapy
CPT/HCPCS: 36600; 71045; 80048; 80076; 82550; 82553; 82803; 83605; 83880; 84484; 85025; 87040; 87070; 87077; 87186; 87205; 87798; 93005; 93041; 94760; 96365; 96375; 99284; J0696; J1100

== ENCOUNTER → 2021-12-11 | Outpatient (REF) | payer MEDICARE, OTHER ==
[~2021-12-11] MED LIST changes: +IRON27TA2 PO; +MAGN400C PO; +MECL-86 PO; +MELA10TA6 PO; +NOXI1TAB PO; +PRED10TA2 PO
== END ==
LOC: M LAB REF 16:27
PROVIDERS: ATTEND Physician Assistant Medical
DX: D64.9 Anemia, unspecified (principal)

== ENCOUNTER 2021-12-27 12:09 | Inpatient (IN) | payer MEDICARE, OTHER ==
[~2021-12-27] VITALS: Ht 175.3 cm; Wt 59.6 kg
[2021-12-27] MEDS ORDERED: methylPREDNISolone 125MG 2ML VIAL IV ONE (12:30)
[2021-12-27] MEDS ORDERED: ACETAMINOPHEN 325 MG TAB PO ONE (12:30)
[2021-12-27] MEDS: COMBIVENT RESPIMAT 100-20MCG INHALER 4GM INH SCH ×3 (12:50→13:20)
[2021-12-27] MEDS ORDERED: IRON65TA2 PO (13:04)
[2021-12-27 13:09] LABS: BASO % 0.4 % (0.0-1.0); EOS % 0.4 % (0.0-3.0); HEMATOCRIT 32.7 % (42.0-52.0); LYMPH # 0.8 10^3/uL (1.5-5.0); LYMPH % 9.6 % (24.0-44.0); MEAN CORPUSCULAR HEMOGLOBIN 21.5 pg (27.0-33.0); MEAN CORPUSCULAR HGB CONC 30.6 g/dl (32.0-36.5); MEAN CORPUSCULAR VOLUME 70.2 fl (80.0-96.0); MONO # 1.5 10^3/uL (0.0-0.8); MONO % 18.3 % (2.0-8.0); NEUTROPHILS # 5.6 10^3/uL (1.5-8.5); NEUTROPHILS % 70.7 % (36.0-66.0); PLATELET COUNT, AUTOMATED 221 10^3/uL (150-450); RED BLOOD COUNT 4.66 10^6/uL (4.30-6.10); WHITE BLOOD COUNT 7.9 10^3/uL (4.0-10.0)
[2021-12-27] MEDS ORDERED: MIDO10TA PO (13:09)
[2021-12-27] MEDS ORDERED: D31000TA2 PO (13:12)
[2021-12-27] MEDS ORDERED: AZIT-12 PO (13:18)
[2021-12-27] MEDS ORDERED: TROS60CA2 PO (13:18)
[2021-12-27] MEDS ORDERED: MORP10SO2 PO (13:18)
[2021-12-27] MEDS ORDERED: SENN-80 PO (13:18)
[2021-12-27] MEDS ORDERED: INCR1INH INH (13:18)
[2021-12-27] MEDS ORDERED: LEXA1TAB PO (13:18)
[2021-12-27] MEDS ORDERED: HOME MED LIST COMPLETE! XX SCH (13:20)
[2021-12-27 13:23] LABS: ABG BASE EXCESS 3.8 (-2.0-2.0); ABG O2 SATURATION 92.7 % (95.0-99.0); ABG PARTIAL PRESSURE CO2 35.4 mmHg (35.0-45.0); ABG PARTIAL PRESSURE O2 60.6 mmHg (75.0-100.0); ABG STANDARD HCO3 27.8 MEQ/L (22.0-26.0); ABG TOTAL CO2 28.1 MEQ/L (23.0-31.0)
[2021-12-27 13:36] LABS: INR 1.15; PROTHROMBIN TIME 15.1 SECONDS (12.7-14.5)
[2021-12-27 13:51] LABS: ALBUMIN 2.7 GM/DL (3.2-5.2); ALT/SGPT 64 U/L (12-78); BILIRUBIN,DIRECT 0.1 MG/DL (0.0-0.2); BILIRUBIN,TOTAL 0.3 MG/DL (0.2-1.0); BLOOD UREA NITROGEN 12 MG/DL (7-18); CALCIUM LEVEL 8.2 MG/DL (8.8-10.2); CARBON DIOXIDE LEVEL 30 MEQ/L (21-32); CHLORIDE LEVEL 98 MEQ/L (98-107); CREATININE FOR GFR 0.54 MG/DL (0.70-1.30); GLOMERULAR FILTRATION RATE > 60.0 (>42); GLUCOSE, FASTING 82 MG/DL (70-100); POTASSIUM SERUM 3.5 MEQ/L (3.5-5.1); SODIUM LEVEL 135 MEQ/L (136-145); TOTAL PROTEIN 6.4 GM/DL (6.4-8.2)
[2021-12-27] MEDS ORDERED: cefTRIAXone SOD 1 GM in D5W MINI-BAG PLUS 50 ML IV ONE ×2 (14:45→15:10)
[2021-12-27] MEDS ORDERED: IPRATROPIUM 0.5MG/ALBUTEROL 2.5MG INH SOL UD 3ML (DUONEB) NEB PRN (15:10)
[2021-12-27] MEDS ORDERED: FLUTICASONE PROP 0.05% NASAL SPRAY 16 GM (FLONASE) PRN (15:25)
[2021-12-27] MEDS ORDERED: MECLIZINE 25 MG TABLET PO PRN (15:25)
[2021-12-27] MEDS ORDERED: LORazepam 0.5 MG TAB PO PRN (15:25)
[2021-12-27] MEDS ORDERED: MORPHINE SULFATE ORAL SOLN 10 MG/5 ML UD PO PRN (15:25)
[2021-12-27] MEDS ORDERED: cefTRIAXone SOD 2 GM in D5W MINI-BAG PLUS 50 ML IV ONE (15:40)
[2021-12-27] MEDS ORDERED: AZITHROMYCIN INJ 500 MG, VIAL MATE ADAPTER 1 EACH in NS 250 ML IV ONE (16:00)
[2021-12-27] MEDS: IPRATROPIUM 0.5MG/ALBUTEROL 2.5MG INH SOL UD 3ML (DUONEB) NEB SCH ×3 (16:00→23:23)
[2021-12-27 16:45] VITALS: BP 109/63
[2021-12-27] MEDS ORDERED: DOXYCYCLINE HYCLATE 100 MG in D5W MINI-BAG PLUS 100 ML IV SCH (18:00)
[2021-12-27] MEDS: MIDODRINE 5 MG TAB PO SCH (18:40)
[2021-12-27] MEDS: ESCITALOPRAM OXALATE 10 MG TAB (LEXAPRO) PO SCH (18:40)
[2021-12-27] MEDS: LACTOBACILLUS ACIDOPHILUS CAP (BACID) PO SCH ×2 (18:40→21:12)
[2021-12-27] MEDS: BUDESONIDE 0.5 MG/2 ML INHALATION SUSPENSION NEB SCH (19:59)
[2021-12-27] MEDS: SYMBICORT 160/4.5MCG INHALER 6GM INH SCH (20:00)
[2021-12-27] MEDS: OCUVITE 1 TAB PO SCH (21:12)
[2021-12-27] MEDS: FERROUS SULFATE 325MG TAB PO SCH (21:12)
[2021-12-27] MEDS: MAGNESIUM OXIDE 400MG TAB (MAG-OX) PO SCH (21:12)
[2021-12-27] MEDS: guaiFENesin ER 600 MG TAB PO SCH (21:12)
[2021-12-27] MEDS: VITAMIN D 1,000 INTERNATIONAL UNITS TABLET PO SCH (21:12)
[2021-12-27] MEDS: DOXYCYCLINE HYCLATE 100 MG in D5W MINI-BAG PLUS 100 ML IV SCH (21:13)
[2021-12-27] MEDS: methylPREDNISolone 125MG 2ML VIAL IV SCH (21:13)
[2021-12-27] MEDS: PERCOCET 5MG/325MG TAB PO PRN (21:20)
[2021-12-27 22:00] VITALS: BP 111/65
[2021-12-28 00:34] VITALS: BP 112/63
[2021-12-28] MEDS: methylPREDNISolone 125MG 2ML VIAL IV SCH ×2 (02:43→09:14)
[2021-12-28] MEDS: IPRATROPIUM 0.5MG/ALBUTEROL 2.5MG INH SOL UD 3ML (DUONEB) NEB SCH ×5 (03:02→20:00)
[2021-12-28 05:31] VITALS: BP 116/64
[2021-12-28 07:21] LABS: BASO % 0.2 % (0.0-1.0); HEMATOCRIT 31.7 % (42.0-52.0); HEMOGLOBIN 9.7 g/dl (13.5-17.5); LYMPH # 0.4 10^3/uL (1.5-5.0); LYMPH % 6.8 % (24.0-44.0); MEAN CORPUSCULAR HEMOGLOBIN 21.2 pg (27.0-33.0); MEAN CORPUSCULAR HGB CONC 30.6 g/dl (32.0-36.5); MEAN CORPUSCULAR VOLUME 69.2 fl (80.0-96.0); MONO # 0.2 10^3/uL (0.0-0.8); MONO % 3.8 % (2.0-8.0); NEUTROPHILS # 4.7 10^3/uL (1.5-8.5); NEUTROPHILS % 88.4 % (36.0-66.0); PLATELET COUNT, AUTOMATED 225 10^3/uL (150-450); RED BLOOD COUNT 4.58 10^6/uL (4.30-6.10); WHITE BLOOD COUNT 5.3 10^3/uL (4.0-10.0)
[2021-12-28 07:38] LABS: BLOOD UREA NITROGEN 16 MG/DL (7-18); CALCIUM LEVEL 8.6 MG/DL (8.8-10.2); CARBON DIOXIDE LEVEL 28 MEQ/L (21-32); CHLORIDE LEVEL 101 MEQ/L (98-107); CREATININE FOR GFR 0.39 MG/DL (0.70-1.30); GLOMERULAR FILTRATION RATE > 60.0 (>42); GLUCOSE, FASTING 116 MG/DL (70-100); POTASSIUM SERUM 3.7 MEQ/L (3.5-5.1); SODIUM LEVEL 138 MEQ/L (136-145)
[2021-12-28] MEDS: SYMBICORT 160/4.5MCG INHALER 6GM INH SCH ×2 (08:11→19:59)
[2021-12-28] MEDS: TIOTROPIUM INHALER/CAPSULE (SPIRIVA) INH SCH (08:11)
[2021-12-28] MEDS: BUDESONIDE 0.5 MG/2 ML INHALATION SUSPENSION NEB SCH (08:11)
[2021-12-28] MEDS: ENOXAPARIN 40MG/0.4ML SYRINGE (J1650 PER 10MG) SC SCH (09:13)
[2021-12-28] MEDS: ACETAMINOPHEN TAB 650MG DOSE (2X325MG) PO PRN ×2 (09:13→23:57)
[2021-12-28] MEDS: ESCITALOPRAM OXALATE 10 MG TAB (LEXAPRO) PO SCH (09:13)
[2021-12-28] MEDS: guaiFENesin ER 600 MG TAB PO SCH ×2 (09:13→20:17)
[2021-12-28] MEDS: LACTOBACILLUS ACIDOPHILUS CAP (BACID) PO SCH ×4 (09:13→20:12)
[2021-12-28] MEDS: MIDODRINE 5 MG TAB PO SCH ×3 (09:13→17:21)
[2021-12-28] MEDS: DOXYCYCLINE HYCLATE 100 MG in D5W MINI-BAG PLUS 100 ML IV SCH (09:14)
[2021-12-28 11:33] LABS: IMMUNOGLOBULIN E 5.6 IU/ML (<100)
[2021-12-28] MEDS: PERCOCET 5MG/325MG TAB PO PRN ×2 (12:46→20:13)
[2021-12-28] MEDS: predniSONE 20 MG TAB PO SCH (12:47)
[2021-12-28 14:00] VITALS: BP 120/65
[2021-12-28] MEDS: cefTRIAXone SOD 2 GM in D5W MINI-BAG PLUS 50 ML IV SCH (14:50)
[2021-12-28] MEDS: AZITHROMYCIN 250MG TABLET PO SCH (14:50)
[2021-12-28] MEDS ORDERED: predniSONE 20 MG TAB PO SCH (16:00)
[2021-12-28] MEDS ORDERED: oxyCODONE 5MG TAB PO ONE (18:00)
[2021-12-28] MEDS ORDERED: ACETAMINOPHEN 500 MG TAB PO ONE (18:00)
[2021-12-28] MEDS: FERROUS SULFATE 325MG TAB PO SCH (20:12)
[2021-12-28] MEDS: VITAMIN D 1,000 INTERNATIONAL UNITS TABLET PO SCH (20:12)
[2021-12-28] MEDS: OCUVITE 1 TAB PO SCH (20:12)
[2021-12-28] MEDS: MAGNESIUM OXIDE 400MG TAB (MAG-OX) PO SCH (20:13)
[2021-12-28] MEDS: DICLOFENAC EPOLAMINE 1.3 % PATCH TOP SCH (21:31)
[2021-12-28 22:00] VITALS: BP 112/63
[2021-12-29] MEDS: BUDESONIDE 0.5 MG/2 ML INHALATION SUSPENSION NEB SCH ×3 (00:28→19:40)
[2021-12-29] MEDS: IPRATROPIUM 0.5MG/ALBUTEROL 2.5MG INH SOL UD 3ML (DUONEB) NEB SCH ×8 (00:29→23:28)
[2021-12-29 06:00] VITALS: BP 118/68
[2021-12-29 07:12] LABS: BASO % 0.1 % (0.0-1.0); HEMATOCRIT 29.6 % (42.0-52.0); HEMOGLOBIN 9.2 g/dl (13.5-17.5); LYMPH # 0.9 10^3/uL (1.5-5.0); LYMPH % 8.9 % (24.0-44.0); MEAN CORPUSCULAR HEMOGLOBIN 21.3 pg (27.0-33.0); MEAN CORPUSCULAR HGB CONC 31.1 g/dl (32.0-36.5); MEAN CORPUSCULAR VOLUME 68.5 fl (80.0-96.0); MONO # 0.9 10^3/uL (0.0-0.8); MONO % 9.8 % (2.0-8.0); NEUTROPHILS # 7.8 10^3/uL (1.5-8.5); NEUTROPHILS % 80.5 % (36.0-66.0); PLATELET COUNT, AUTOMATED 244 10^3/uL (150-450); RED BLOOD COUNT 4.32 10^6/uL (4.30-6.10); WHITE BLOOD COUNT 9.6 10^3/uL (4.0-10.0)
[2021-12-29 07:28] LABS: BLOOD UREA NITROGEN 19 MG/DL (7-18); CALCIUM LEVEL 8.3 MG/DL (8.8-10.2); CARBON DIOXIDE LEVEL 26 MEQ/L (21-32); CHLORIDE LEVEL 101 MEQ/L (98-107); CREATININE FOR GFR 0.49 MG/DL (0.70-1.30); GLOMERULAR FILTRATION RATE > 60.0 (>42); GLUCOSE, FASTING 79 MG/DL (70-100); POTASSIUM SERUM 3.6 MEQ/L (3.5-5.1); SODIUM LEVEL 137 MEQ/L (136-145)
[2021-12-29] MEDS: TIOTROPIUM INHALER/CAPSULE (SPIRIVA) INH SCH (07:49)
[2021-12-29] MEDS: SYMBICORT 160/4.5MCG INHALER 6GM INH SCH ×2 (07:49→19:40)
[2021-12-29] MEDS: LACTOBACILLUS ACIDOPHILUS CAP (BACID) PO SCH ×4 (08:46→23:26)
[2021-12-29] MEDS: ENOXAPARIN 40MG/0.4ML SYRINGE (J1650 PER 10MG) SC SCH (08:46)
[2021-12-29] MEDS: ESCITALOPRAM OXALATE 10 MG TAB (LEXAPRO) PO SCH (08:47)
[2021-12-29] MEDS: guaiFENesin ER 600 MG TAB PO SCH ×2 (08:47→23:25)
[2021-12-29] MEDS: AZITHROMYCIN 250MG TABLET PO SCH (08:47)
[2021-12-29] MEDS: DICLOFENAC EPOLAMINE 1.3 % PATCH TOP SCH ×2 (08:47→23:27)
[2021-12-29] MEDS: predniSONE 20 MG TAB PO SCH (08:47)
[2021-12-29] MEDS: MIDODRINE 5 MG TAB PO SCH ×3 (08:47→16:33)
[2021-12-29] MEDS: PERCOCET 5MG/325MG TAB PO PRN ×3 (08:56→23:28)
[2021-12-29] MEDS: ACETAMINOPHEN TAB 650MG DOSE (2X325MG) PO PRN ×2 (12:51→17:38)
[2021-12-29 14:00] VITALS: BP 111/65
[2021-12-29] MEDS: cefTRIAXone SOD 2 GM in D5W MINI-BAG PLUS 50 ML IV SCH (16:34)
[2021-12-29 21:00] VITALS: BP 139/69
[2021-12-29] MEDS: VITAMIN D 1,000 INTERNATIONAL UNITS TABLET PO SCH (23:26)
[2021-12-29] MEDS: FERROUS SULFATE 325MG TAB PO SCH (23:26)
[2021-12-29] MEDS: MAGNESIUM OXIDE 400MG TAB (MAG-OX) PO SCH (23:26)
[2021-12-29] MEDS: OCUVITE 1 TAB PO SCH (23:32)
[2021-12-30] MEDS: IPRATROPIUM 0.5MG/ALBUTEROL 2.5MG INH SOL UD 3ML (DUONEB) NEB SCH ×2 (03:26→07:41)
[2021-12-30 05:23] VITALS: BP 149/76
[2021-12-30 06:54] LABS: BASO % 0.1 % (0.0-1.0); EOS % 0.1 % (0.0-3.0); HEMATOCRIT 28.7 % (42.0-52.0); HEMOGLOBIN 8.8 g/dl (13.5-17.5); LYMPH % 12.9 % (24.0-44.0); MEAN CORPUSCULAR HEMOGLOBIN 21.2 pg (27.0-33.0); MEAN CORPUSCULAR HGB CONC 30.7 g/dl (32.0-36.5); MONO # 0.8 10^3/uL (0.0-0.8); MONO % 10.1 % (2.0-8.0); NEUTROPHILS # 5.7 10^3/uL (1.5-8.5); NEUTROPHILS % 76.3 % (36.0-66.0); PLATELET COUNT, AUTOMATED 205 10^3/uL (150-450); RED BLOOD COUNT 4.16 10^6/uL (4.30-6.10); WHITE BLOOD COUNT 7.4 10^3/uL (4.0-10.0)
[2021-12-30 07:17] LABS: BLOOD UREA NITROGEN 16 MG/DL (7-18); CALCIUM LEVEL 8.3 MG/DL (8.8-10.2); CARBON DIOXIDE LEVEL 27 MEQ/L (21-32); CHLORIDE LEVEL 104 MEQ/L (98-107); CREATININE FOR GFR 0.45 MG/DL (0.70-1.30); GLOMERULAR FILTRATION RATE > 60.0 (>42); GLUCOSE, FASTING 76 MG/DL (70-100); POTASSIUM SERUM 3.9 MEQ/L (3.5-5.1); SODIUM LEVEL 139 MEQ/L (136-145)
[2021-12-30] MEDS: TIOTROPIUM INHALER/CAPSULE (SPIRIVA) INH SCH (07:40)
[2021-12-30] MEDS: BUDESONIDE 0.5 MG/2 ML INHALATION SUSPENSION NEB SCH (07:41)
[2021-12-30] MEDS: SYMBICORT 160/4.5MCG INHALER 6GM INH SCH (07:41)
[2021-12-30] MEDS: ENOXAPARIN 40MG/0.4ML SYRINGE (J1650 PER 10MG) SC SCH (08:18)
[2021-12-30] MEDS: AZITHROMYCIN 250MG TABLET PO SCH (08:18)
[2021-12-30] MEDS: ESCITALOPRAM OXALATE 10 MG TAB (LEXAPRO) PO SCH (08:19)
[2021-12-30] MEDS: MIDODRINE 5 MG TAB PO SCH (08:19)
[2021-12-30] MEDS: guaiFENesin ER 600 MG TAB PO SCH (08:19)
[2021-12-30] MEDS: predniSONE 20 MG TAB PO SCH (08:19)
[2021-12-30] MEDS: ACETAMINOPHEN TAB 650MG DOSE (2X325MG) PO PRN (08:19)
[2021-12-30] MEDS: LACTOBACILLUS ACIDOPHILUS CAP (BACID) PO SCH (08:19)
[2021-12-30] MEDS: DICLOFENAC EPOLAMINE 1.3 % PATCH TOP SCH (08:20)
[2021-12-30] MEDS: PERCOCET 5MG/325MG TAB PO PRN (08:20)
[2021-12-30] MEDS ORDERED: FLUCONAZOLE 50MG TABLET PO SCH (09:00)
[2021-12-30] MEDS ORDERED: AZIT-12 PO (09:39)
[2021-12-30] MEDS ORDERED: BACITAB PO (09:39)
[2021-12-30] MEDS ORDERED: CEFD300C PO (09:39)
[2021-12-30] MEDS ORDERED: DIFL50TA PO (09:40)
[2021-12-31 16:11] LABS: BODY FLUID CULTURE Not indicated. (.); LEGIONELLA ANTIGEN URINE Negative (Negative); ORGANISM ID Not indicated. (.); SPECIMEN SOURCE Urine (.); URINE STREP PNEUMONIAE ANTIGEN Negative (Negative)
[2021-12-31 23:15] LABS: IgG SERUM (part of Subclasses) 998 mg/dL (603-1613); IgG Subclass 1 336 mg/dL (248-810); IgG Subclass 2 488 mg/dL (130-555); IgG Subclass 3 76 mg/dL (15-102); IgG Subclass 4 49 mg/dL (2-96)
== END 2021-12-30 11:45 | disposition home health service (06) | DRG 194 ==
LOC: M ED 12:09 → M ED INP 14:49 → M MSPAV 18:17
PROVIDERS: ADMIT General Practice; ATTEND General Practice
DX: J13 Pneumonia due to Streptococcus pneumoniae (principal); J96.11 Chronic respiratory failure with hypoxia; J44.1 Chronic obstructive pulmonary disease with (acute) exacerbation; I10 Essential (primary) hypertension; G47.33 Obstructive sleep apnea (adult) (pediatric); E78.5 Hyperlipidemia, unspecified; K57.30 Diverticulosis of large intestine without perforation or abscess without bleeding; Z92.3 Personal history of irradiation; Z85.46 Personal history of malignant neoplasm of prostate; Z79.899 Other long term (current) drug therapy; Z99.81 Dependence on supplemental oxygen; Z79.52 Long term (current) use of systemic steroids; Z66 Do not resuscitate; Z87.891 Personal history of nicotine dependence

== ENCOUNTER → 2022-01-31 | Outpatient (REF) | payer MEDICARE, OTHER ==
[~2022-01-31] MED LIST changes: +BACITAB PO; +CEFD300C PO; -D31000TA2 PO; +DIFL50TA PO; +FEXO-117 PO; -FEXO180T58 PO; +IRON65TA2 PO; +LEXA1TAB PO; +MORP10SO2 PO; +SENN-80 PO; +TROS60CA2 PO; +VITA100093 PO
== END ==
LOC: M SFHCPLAZ 13:52
PROVIDERS: ATTEND Internal Medicine Infectious Disease
DX: A31.0 Pulmonary mycobacterial infection (principal)

== ENCOUNTER → 2022-02-09 | Outpatient (REF) | payer MEDICARE, OTHER | LOC: M LAB REF 10:28 | PROVIDERS: ATTEND Internal Medicine Infectious Disease | DX: A31.0 Pulmonary mycobacterial infection (principal) ==

== ENCOUNTER → 2022-03-20 | Outpatient (CLI) | payer MEDICARE, OTHER | LOC: M RAD 15:14 | PROVIDERS: ATTEND Internal Medicine | DX: M79.605 Pain in left leg (principal) ==